=== PATIENT | female | born 1950 | race Caucasian/White ===

== ENCOUNTER 2019-01-02 19:10 | Emergency (ER) | payer OTHER ==
[~2019-01-02] VITALS: Ht 157.5 cm; Wt 91.6 kg
--- NOTE | 2019-01-02 19:16 | ED General ---
General Stated Complaint: PT FELL ON HIP THAT WAS PREV BROKEN, RT SH PAIN History of Present Illness Date Seen by Provider: Jan 02, 2019 Time Seen by Provider: 19:16 Initial Comments fell landed directly on left hip where she had a broken hip in the past. fall from standing height no loc, doesnt think she hit her head. pain moderate localized to groin area. no fever or other recent illneses Allergies and Home Medications Patient Home Medication List Home Medication List Reviewed: Yes Review of Systems Review of Systems Constitutional: no symptoms reported Past Pofyljk-Ryfcqa-Qowqnz Hx Past Med/Social Hx: Reviewed Nursing Past Med/Soc Hx Patient Social History Recent Foreign Travel: No Contact w/Someone Who Travel: No Physical Exam Vital Signs Vital Signs - First Documented 01/02/19 20:58 Temp 98.6 Pulse 71 Resp 16 B/P (MAP) 161/73 (102) Pulse Ox 98 O2 Delivery Room Air Capillary Refill : Height, Weight, BMI Height: '" Weight: lbs. oz. kg; BMI Method: General Appearance: No Apparent Distress, WD/WN Neck: Normal Inspection, Non Tender Respiratory: Chest Non Tender, No Respiratory Distress Gastrointestinal: No Pulsatile Mass, Non Tender Back: Normal Inspection Extremity: Other (there is mild ttp of the left hip rom is intact with only mild discomfort, distal csm intact) Skin: Normal Color, Warm/Dry Progress/Results/Core Measures Suspected Sepsis SIRS Temperature: Pulse: Respiratory Rate: Blood Pressure / Mean: Results/Orders My Orders Orders - LISA CHRISTIE MD Hip 2-3 View Left (01/02/19 21:28) Pelvis (Ap) (01/02/19 21:28) Vital Signs/I&O 01/02/19 01/02/19 20:58 22:17 Temp 98.6 98.6 Pulse 71 71 Resp 16 16 B/P (MAP) 161/73 (102) 161/73 (102) Pulse Ox 98 98 O2 Delivery Room Air Capillary Refill : Progress Note : Progress Note FINDINGS: There are three cannulated bone screws present. Femoral head shows good alignment with the femoral neck. Bone screws appear in good position. There does appear to be mild irregularity along the articulating surface of the femoral head along the distal portion of the more superior cortical bone screw. Acetabulum appears intact. No evidence of femoral neck or trochanteric fracture. IMPRESSION: No findings to suggest acute fractures or hardware complication. Findings are suggestive of a chronic mild irregularity along the articulating surface of the femoral head. Dictated by: Dictated on workstation pelvis xray negative acute 68 yo f with hip contusion xrays negative reassurnace given, ice rest gradual return to activity Departure Impression Primary Impression: Contusion, hip Disposition: HOME, SELF-CARE Condition: Stable Departure-Patient Inst. Referrals: DIANE CROWELL APRN (PCP) Primary Care Physician LISA CHRISTIE MD Jan 02, 2019 19:16
--- NOTE | 2019-01-02 21:26 | NUR ---
DOCTOR AJAY HUFF TO SEE THE PATIENT.
--- NOTE | 2019-01-02 21:58 | Diagnostic Imaging Report ---
INDICATION: Fall. Left hip pain. EXAMINATION: Two views of the left hip were obtained. FINDINGS: There are three cannulated bone screws present. Femoral head shows good alignment with the femoral neck. Bone screws appear in good position. There does appear to be mild irregularity along the articulating surface of the femoral head along the distal portion of the more superior cortical bone screw. Acetabulum appears intact. No evidence of femoral neck or trochanteric fracture. IMPRESSION: No findings to suggest acute fractures or hardware complication. Findings are suggestive of a chronic mild irregularity along the articulating surface of the femoral head. Dictated by: Dictated on workstation # [id number]
--- NOTE | 2019-01-02 21:59 | Diagnostic Imaging Report ---
INDICATION: Fall. Left hip pain. FINDINGS: AP pelvis shows bony ring intact. No evidence of fractures of the pelvis. The SI joints and pubic symphysis are in good alignment with moderate degenerative change. Right hip appears normal. Left hip shows previous pinning as reported on the left hip films. IMPRESSION: No acute abnormalities of the pelvis. Dictated by: Dictated on workstation # [id number]
[2019-01-02 22:17] VITALS: BP 161/73
== END 2019-01-02 22:16 | disposition home or self-care (01) ==
LOC: ER FS 19:11
DX: S70.02XA Contusion of left hip, initial encounter (principal); W18.30XA Fall on same level, unspecified, initial encounter
CPT/HCPCS: 72170; 73502

== ENCOUNTER 2019-01-08 15:53 | Emergency (ER) | payer MEDICARE, OTHER ==
[~2019-01-08] VITALS: Ht 157.5 cm; Wt 91.6 kg
--- NOTE | 2019-01-08 17:00 | ED Hip Pain/Injury ---
General Chief Complaint: Hip/Pelvic Problems Stated Complaint: L HIP PAIN Nursing Triage Note: PT STATES SHE FELL IN THE DRIVEWAY LAST WEEK, CC OF LT HIP PAIN THAT DOES NOT SEEM TO BE GETTING BETTER. PT HAD RAD DONE IN [facility] AND IT WAS NEG FOR FX. Source: patient Exam Limitations: no limitations History of Present Illness Date Seen by Provider: Jan 08, 2019 Time Seen by Provider: 16:35 Initial Comments The patient is a 68-year-old white female who fell in her driveway last week. She was able to walk but had significant left hip pain. She subsequently was seen in [place] and a plain film was done which was reported as negative. She continues to have significant pain and presents for further evaluation. Timing/Duration: week, getting worse Severity: moderate Location: hip (L) Method of Injury: fell Allergies and Home Medications Allergies Coded Allergies: prednisone (Verified Allergy, Intermediate, 01/08/19) PO MAKES HER HAVE NAUSEA, IM IS FINE lisinopril (Verified Adverse Reaction, Mild, 01/08/19) COUGH Patient Home Medication List Home Medication List Reviewed: Yes Review of Systems Constitutional: see HPI EENTM: no symptoms reported Respiratory: no symptoms reported Cardiovascular: no symptoms reported Gastrointestinal: no symptoms reported Genitourinary: no symptoms reported Musculoskeletal: see HPI, joint pain Skin: no symptoms reported Psychiatric/Neurological: No Symptoms Reported Past Abcwheo-Ylujdy-Mnomxk Hx Patient Social History Alcohol Use: Denies Use Recreational Drug Use: No Smoking Status: Never a Smoker Recent Foreign Travel: No Contact w/Someone Who Travel: No Recent Infectious Disease Expo: No Recent Hopitalizations: No Seasonal Allergies Seasonal Allergies: No Past Medical History Surgeries: Yes (CABG, LT HIP FX) Gallbladder Respiratory: Yes Asthma Cardiac: Yes Coronary Artery Disease Neurological: Yes Stroke Genitourinary: No Gastrointestinal: No Musculoskeletal: No Endocrine: Yes Diabetes, Non-Insulin dep HEENT: No Cancer: No Psychosocial: Yes Anxiety Psoriasis Physical Exam Vital Signs Vital Signs - First Documented 01/08/19 16:09 Temp 98.5 Pulse 67 Resp 22 B/P (MAP) 142/71 (94) Pulse Ox 96 O2 Delivery Room Air Capillary Refill : Less Than 3 Seconds Height, Weight, BMI Height: 5'2.00" Weight: 202lbs. oz. 91.219718dk; BMI Method:Stated General Appearance: Mild Distress, Moderate Distress HEENT: Normal ENT Inspection Neck: Normal Inspection Cardiovascular: Regular Rate, Rhythm Progress/Results/Core Measures Results/Orders My Orders Orders - CARITO HURTADO MD Ct Pelvis Wo (01/08/19 16:16) Vital Signs/I&O 01/08/19 16:09 Temp 98.5 Pulse 67 Resp 22 B/P (MAP) 142/71 (94) Pulse Ox 96 O2 Delivery Room Air Blood Pressure Mean: 94 Departure Communication (Admissions) CT scan shows a nondisplaced fracture of the left pubic ramus. This film was shown to the patient and her family. She reports that she feels much better just knowing why she has pain. Impression Primary Impression: fracture left pubic ramus Disposition: HOME, SELF-CARE Condition: Stable/Unchanged Departure-Patient Inst. Decision time for Depature: 18:30 Referrals: DIANE CROEWLL APRN (PCP) Primary Care Physician NO,LOCAL PHYSICIAN (Family) Primary Care Physician Patient Instructions: Pelvic Fracture (DC) Add. Discharge Instructions: All discharge instructions reviewed with patient and/or family. Voiced understanding. Use Tylenol or Motrin as needed for pain. Expect pain although improving for the next 4-6 weeks. CARITO HURTADO MD Jan 08, 2019 17:00
--- NOTE | 2019-01-08 17:42 | Diagnostic Imaging Report ---
PROCEDURE: CT pelvis without contrast. TECHNIQUE: Multiple contiguous axial images were obtained through the pelvis without the use of intravenous contrast. Sagittal and coronal reformations were performed. Auto Exposure Controls were utilized during the CT exam to meet ALARA standards for radiation dose reduction. INDICATION: Fall 1 week ago with left hip pain. FINDINGS: Femoral acetabular alignment is normal bilaterally. There are 2 screws transfixing the left femoral neck. There is an acute appearing fracture involving the left superior pubic ramus just medial to the anterior column of the left acetabulum. This is best seen on the coronal reconstructions. There is also a nondisplaced fracture involving the left inferior pubic ramus, nondisplaced. Right-sided rami are intact. Both hips appear to be intact. SI joints and symphysis are not widened. No free fluid in the pelvis is seen. IMPRESSION: Nondisplaced acute left superior and inferior pubic rami fractures. Dictated by: Dictated on workstation # [id number]
[2019-01-08 18:43] VITALS: BP 154/71
== END 2019-01-08 18:43 | disposition home or self-care (01) ==
LOC: EDUNIT# 15:53 → ER 15:55
DX: S32.512A Fracture of superior rim of left pubis, initial encounter for closed fracture (principal); J45.909 Unspecified asthma, uncomplicated; I25.10 Atherosclerotic heart disease of native coronary artery without angina pectoris; E11.9 Type 2 diabetes mellitus without complications; F41.9 Anxiety disorder, unspecified; Z86.73 Personal history of transient ischemic attack (TIA), and cerebral infarction without residual deficits; Z95.1 Presence of aortocoronary bypass graft; Z88.8 Allergy status to other drugs, medicaments and biological substances; W19.XXXA Unspecified fall, initial encounter; Y92.093 Driveway of other non-institutional residence as the place of occurrence of the external cause
CPT/HCPCS: 72192

== ENCOUNTER 2019-07-19 18:35 | Emergency (ER) | payer MEDICARE, OTHER ==
[~2019-07-19] VITALS: Ht 170 cm; Wt 85.0 kg
--- NOTE | 2019-07-19 18:41 | ED Neurological Problem ---
General Stated Complaint: SEIZURES Source: family, EMS History of Present Illness Date Seen by Provider: Jul 19, 2019 Time Seen by Provider: 18:41 Initial Comments 69-year-old female brought in by EMS. They were called for a seizure. Patient had a witnessed seizure by family for approximately 2 minutes. Patient was postictal when EMS arrived. She does not have any tongue biting. She possibly has some incontinence patient does not remember the event. No other history of present illness available at this time. Patient's family reports that her last seizure was around 2015. That they later determined it was stress related. Patient is currently under a significant amount of stress at this time she is getting ready to move out on her own and signing papers for a house and some other significant stressors. Patient did have a recent upper respiratory infections going on antibiotics. Allergies and Home Medications Allergies Coded Allergies: prednisone (Verified Allergy, Intermediate, 01/08/19) PO MAKES HER HAVE NAUSEA, IM IS FINE lisinopril (Verified Adverse Reaction, Mild, 01/08/19) COUGH Patient Home Medication List Home Medication List Reviewed: Yes Review of Systems Review of Systems Constitutional: no symptoms reported Eyes: No Symptoms Reported Cardiovascular: no symptoms reported Gastrointestinal: no symptoms reported Genitourinary: no symptoms reported Skin: no symptoms reported Psychiatric/Neurological: Tonic Clonic Seizures Review of systems Limited on patient's still be mildly postictal Past Uhmozfc-Kegimd-Hswhcf Hx Past Med/Social Hx: Reviewed Nursing Past Med/Soc Hx Patient Social History Recent Foreign Travel: No Recent Hopitalizations: No Seasonal Allergies Seasonal Allergies: No Past Medical History Surgeries: Yes (CABG, LT HIP FX) Gallbladder Respiratory: Yes Asthma Cardiac: Yes Coronary Artery Disease Neurological: Yes Stroke Genitourinary: No Gastrointestinal: No Musculoskeletal: No Endocrine: Yes Diabetes, Non-Insulin dep HEENT: No Cancer: No Psychosocial: Yes Anxiety Psoriasis Physical Exam Vital Signs Vital Signs - First Documented 07/19/19 18:35 Temp 36.0 Pulse 85 Resp 20 B/P (MAP) 172/71 (104) Pulse Ox 97 O2 Delivery Nasal Cannula O2 Flow Rate 2.00 Capillary Refill : Height, Weight, BMI Height: 5'2.00" Weight: 202lbs. oz. 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, no motor/sensory deficits Skin: normal color, warm/dry Progress/Results/Core Measures Results/Orders Lab Results Laboratory Tests Test 07/19/19 18:42 07/19/19 19:15 07/19/19 20:05 Range/Units White Blood Count 12.7 H 4.3-11.0 10^3/uL Red Blood Count 4.10 L 4.35-5.85 10^6/uL Hemoglobin 12.3 11.5-16.0 G/DL Hematocrit 39 35-52 % Mean Corpuscular Volume 96 80-99 FL Mean Corpuscular Hemoglobin 30 25-34 PG Mean Corpuscular Hemoglobin Concent 31 L 32-36 G/DL Red Cell Distribution Width 14.6 H 10.0-14.5 % Platelet Count 181 130-400 10^3/uL Mean Platelet Volume 11.1 H 7.4-10.4 FL Neutrophils (%) (Auto) 32 L 42-75 % Lymphocytes (%) (Auto) 59 H 12-44 % Monocytes (%) (Auto) 5 0-12 % Eosinophils (%) (Auto) 3 0-10 % Basophils (%) (Auto) 1 0-10 % Neutrophils # (Auto) 4.0 1.8-7.8 X 10^3 Lymphocytes # (Auto) 7.5 H 1.0-4.0 X 10^3 Monocytes # (Auto) 0.7 0.0-1.0 X 10^3 Eosinophils # (Auto) 0.3 0.0-0.3 10^3/uL Basophils # (Auto) 0.1 0.0-0.1 10^3/uL Neutrophils % (Manual) 37 % Lymphocytes % (Manual) 45 % Monocytes % (Manual) 5 % Eosinophils % (Manual) 3 % Band Neutrophils 2 % Atypical Lymphocytes 8 % Poikilocytosis SLIGHT Elliptocytes SLIGHT Sodium Level 139 135-145 MMOL/L Potassium Level 4.6 3.6-5.0 MMOL/L Chloride Level 101 98-107 MMOL/L Carbon Dioxide Level 19 L 21-32 MMOL/L Anion Gap 19 H 5-14 MMOL/L Blood Urea Nitrogen 21 H 7-18 MG/DL Creatinine 1.31 H 0.60-1.30 MG/DL Estimat Glomerular Filtration Rate 40 BUN/Creatinine Ratio 16 Glucose Level 100 70-105 MG/DL Calcium Level 9.7 8.5-10.1 MG/DL Corrected Calcium 9.5 8.5-10.1 MG/DL Total Bilirubin 0.6 0.1-1.0 MG/DL Aspartate Amino Transf (AST/SGOT) 27 5-34 U/L Alanine Aminotransferase (ALT/SGPT) 14 0-55 U/L Alkaline Phosphatase 62 40-136 U/L Total Protein 7.4 6.4-8.2 GM/DL Albumin 4.3 3.2-4.5 GM/DL Serum Alcohol < 10 <10 MG/DL Glucometer 131 H 70-110 MG/DL Urine Color YELLOW Urine Clarity CLEAR Urine pH 6.0 5-9 Urine Specific Bison 1.010 L 1.016-1.022 Urine Protein NEGATIVE NEGATIVE Urine Glucose (UA) NEGATIVE NEGATIVE Urine Ketones NEGATIVE NEGATIVE Urine Nitrite NEGATIVE NEGATIVE Urine Bilirubin NEGATIVE NEGATIVE Urine Urobilinogen 0.2 NORMAL MG/DL Urine Leukocyte Esterase NEGATIVE NEGATIVE Urine RBC (Auto) NEGATIVE NEGATIVE Urine RBC RARE /HPF Urine WBC 0-2 /HPF Urine Squamous Epithelial Cells 0-2 /HPF Urine Crystals NONE /LPF Urine Bacteria NEGATIVE /HPF Urine Casts NONE /LPF Urine Mucus NEGATIVE /LPF Urine Culture Indicated NO My Orders Orders - SIMON,OMAYRA L DO Ct Head Wo (07/19/19 18:42) Chest 1 View Ap/Pa Only (07/19/19 18:42) Accucheck Stat ONCE (07/19/19 18:42) Ekg Tracing (07/19/19 18:42) Monitor-Rhythm Ecg Trace Only (07/19/19 18:42) Alcohol (07/19/19 18:42) Cbc With Automated Diff (07/19/19 18:42) Comprehensive Metabolic Panel (07/19/19 18:42) Drug Screen Stat (Urine) (07/19/19 18:42) Ua Culture If Indicated (07/19/19 18:42) Promethazine Injection (Phenergan Injec (07/19/19 19:30) Manual Differential (07/19/19 18:42) Fosphenytoin Injection (Cerebyx Injectio (07/19/19 20:30) Medications Given in ED Current Medications Medications Dose Ordered Sig/Ileana Route Start Time Stop Time Status Last Admin Dose Admin Promethazine HCl 12.5 mg ONCE ONCE IVP 07/19/19 19:30 07/19/19 19:31 DC 07/19/19 19:20 12.5 MG Vital Signs/I&O 07/19/19 07/19/19 18:35 19:46 Temp 36.0 Pulse 85 73 Resp 20 16 B/P (MAP) 172/71 (104) 153/57 (89) Pulse Ox 97 98 O2 Delivery Nasal Cannula Room Air O2 Flow Rate 2.00 Progress Progress Note : Time: 20:26 Progress Note Patient with negative head CT, mild white count but is currently on antibiotics. She is family requested immediate transfer to . Patient initially was okay with transfer to but then she changed her mind and wants to be discharged home. Did discuss with them that with patient's history and presentation that she likely does not meet inpatient or observation criteria. I did however call and start the transfer process with . However during this process patient herself decided she would rather just go home. I will give her a loading dose of fosphenytoin center on Keppra 500 mg twice a day. Patient should follow-up with her primary care physician and neurologist for further evaluation. There was a significant amount of stress and family strife and infighting within the family. Patient however is stable upon discharge and her wishes to be DC'd home will be followed Departure Impression Primary Impression: Seizure disorder Disposition: 01 HOME, SELF-CARE Condition: Stable Departure-Patient Inst. Referrals: UNKNOWN (PCP) Primary Care Physician DIANE CROWELL APRN (Family) Primary Care Physician Patient Instructions: Seizures, Adult (DC) Add. Discharge Instructions: Follow up with your primary care early next week to arrange for a neurology workup and further outpatient testing Scripts Ondansetron (Ondansetron Odt) 4 Mg Tab.rapdis 4 MG PO Q6H PRN for NAUSEA/VOMITING, #20 TAB Prov: OMAYRA SIMON DO 07/19/19 Levetiracetam (Roweepra) 500 Mg Tablet 500 MG PO NEEDED, #30 TAB Prov: VANESSA SIMONR Shruti DO 07/19/19 OMAYRA SIMON DO Jul 19, 2019 18:41
[2019-07-19 19:03] LABS: HEMATOCRIT 39 % (35-52); HEMOGLOBIN 12.3 G/DL (11.5-16.0); MEAN CORPUSCULAR HEMOGLOBIN 30 PG (25-34); MEAN CORPUSCULAR HGB CONC 31 G/DL (32-36); MEAN CORPUSCULAR VOLUME 96 FL (80-99); RED CELL DISTRIBUTION WIDTH 14.6 % (10.0-14.5); WHITE BLOOD COUNT 12.7 10^3/uL (4.3-11.0)
[2019-07-19 19:04] LABS: MEAN PLATELET VOLUME 11.1 FL (7.4-10.4); PLATELET COUNT 181 10^3/uL (130-400)
--- NOTE | 2019-07-19 19:14 | NUR ---
Report to Cassie GUTIERREZ.
--- NOTE | 2019-07-19 19:19 | Diagnostic Imaging Report ---
PROCEDURE: CT head without contrast. TECHNIQUE: Multiple contiguous axial images were obtained through the brain without the use of intravenous contrast. Auto Exposure Controls were utilized during the CT exam to meet ALARA standards for radiation dose reduction. INDICATION:Seizure COMPARISON: There are no prior studies available for comparison. There is no mass, shift of the midline or hemorrhage to suggest an acute intracranial abnormality. The bone windows showed no evidence for a fracture or for a destructive lesion. The ventricles are not abnormally dilated. There are vague areas of low density in the periventricular white matter bilaterally. These findings are nonspecific but may be secondary to encephalomalacia from microvascular ischemia. There is cortical atrophy present. The degree of atrophy is consistent with the patient's age. The orbits and sinuses were not visualized in their entirety. Where visualized, there is no acute abnormality. IMPRESSION: 1. There is no evidence for an acute intracranial abnormality. 2. If clinical concern regarding an underlying abnormality persists, then MRI would be recommended for further evaluation. These results were discussed with Dr. Acosta at the time of this dictation. Dictated by: Dictated on workstation # [id number]
[2019-07-19 19:22] LABS: ALANINE AMINOTRANSFERASE 14 U/L (0-55); ALKALINE PHOSPHATASE 62 U/L (40-136); BILIRUBIN,TOTAL 0.6 MG/DL (0.1-1.0); BUN/CREATININE RATIO 16; CALCIUM 9.7 MG/DL (8.5-10.1); CARBON DIOXIDE 19 MMOL/L (21-32); CHLORIDE 101 MMOL/L (98-107); CREATININE SERUM 1.31 MG/DL (0.60-1.30); GFR ESTIMATED 40; GLUCOSE 100 MG/DL (70-105); POTASSIUM 4.6 MMOL/L (3.6-5.0); SODIUM 139 MMOL/L (135-145)
[2019-07-19 19:23] LABS: ALBUMIN 4.3 GM/DL (3.2-4.5); TOTAL PROTEIN 7.4 GM/DL (6.4-8.2)
--- NOTE | 2019-07-19 19:23 | Diagnostic Imaging Report ---
EXAM: CHEST 1 VIEW AP/PA ONLY INDICATION: Cough. Seizure. COMPARISON: None. FINDINGS: Cardiomegaly with mild pulmonary vascular congestion. Sternotomy. Calcified aorta. No focal pulmonary opacity, pleural effusion or pneumothorax. IMPRESSION: Cardiomegaly with mild pulmonary vascular congestion. Dictated by: Dictated on workstation # [id number]
[2019-07-19 19:30] LABS: BASOPHILS % (AUTO) 1 % (0-10); EOSINOPHILS # (AUTO) 0.3 10^3/uL (0.0-0.3); EOSINOPHILS % (AUTO) 3 % (0-10); LYMPHOCYTES # (AUTO) 7.5 X 10^3 (1.0-4.0); LYMPHOCYTES % (AUTO) 59 % (12-44); MONOCYTES # (AUTO) 0.7 X 10^3 (0.0-1.0); MONOCYTES % (AUTO) 5 % (0-12); NEUTROPHILS % (AUTO) 32 % (42-75)
[2019-07-19] MEDS ORDERED: PROMETHAZINE INJ 25 MG/ML (PHENERGAN) AMP IVP ONE (19:30)
[2019-07-19 19:31] LABS: ATYPICAL LYMPHOCYTES 8 %; BAND NEUTROPHILS 2 %; BASOPHILS # (AUTO) 0.1 10^3/uL (0.0-0.1); EOSINOPHILS % (MANUAL) 3 %; LYMPHOCYTES % (MANUAL) 45 %; MONOCYTES % (MANUAL) 5 %; NEUTROPHILS % (MANUAL) 37 %
[2019-07-19 19:32] LABS: ELLIPT/OVALOCYTES SLIGHT; POIKILOCYTOSIS SLIGHT
[2019-07-19 19:46] VITALS: BP 153/57
[2019-07-19 20:22] LABS: BACTERIA,URINE NEGATIVE /HPF; BILIRUBIN,URINE NEGATIVE (NEGATIVE); CLARITY,URINE CLEAR; COLOR,URINE YELLOW; GLUCOSE, URINE (UA) NEGATIVE (NEGATIVE); KETONES,URINE NEGATIVE (NEGATIVE); LEUKOCYTE ESTERASE ,URINE NEGATIVE (NEGATIVE); NITRITE,URINE NEGATIVE (NEGATIVE); PROTEIN,URINE NEGATIVE (NEGATIVE); RBC,URINE RARE /HPF; SQUAMOUS EPITHELIAL CELL,UR 0-2 /HPF; UROBILINOGEN,URINE 0.2 MG/DL (NORMAL); WBC,URINE 0-2 /HPF
[2019-07-19 20:26] LABS: AMPHETAMINE SCREEN, URINE NEGATIVE (NEGATIVE); BARBITURATE SCREEN URINE NEGATIVE (NEGATIVE); BENZODIAZEPINES SCREEN URINE POSITIVE (NEGATIVE); CANNABINOID SCREEN, URINE NEGATIVE (NEGATIVE); COCAINE SCREEN URINE NEGATIVE (NEGATIVE); METHADONE STAT NEGATIVE (NEGATIVE); METHAMPHETAMINE SCREEN URINE S NEGATIVE (NEGATIVE); OPIATE SCREEN URINE NEGATIVE (NEGATIVE); OXYCODONE STAT NEGATIVE (NEGATIVE); PROPOXYPHENE STAT NEGATIVE (NEGATIVE); TRICYCLIC ANTIDEPRESSANTS SCRE NEGATIVE (NEGATIVE)
[2019-07-19] MEDS ORDERED: RX-ONDANSETRON 4 MG ODT (ZOFRAN) PPK #4 PO STA (20:26)
[2019-07-19] MEDS ORDERED: FOSPHENYTOIN 50 MG/ML 2 ML (cereBYX) VIAL IV ONE (20:30)
[2019-07-19] MEDS ORDERED: ONDA4TAB11 PO (20:31)
[2019-07-19] MEDS ORDERED: [UNRECOGNIZED DRUG - CODE] PO (20:31)
[2019-07-19 20:34] VITALS: BP 135/66
== END 2019-07-19 20:49 | disposition home or self-care (01) ==
LOC: EDUNIT# 18:35 → ER FS 18:40
DX: G40.909 Epilepsy, unspecified, not intractable, without status epilepticus (principal); J45.909 Unspecified asthma, uncomplicated; E11.9 Type 2 diabetes mellitus without complications; I25.10 Atherosclerotic heart disease of native coronary artery without angina pectoris; F41.9 Anxiety disorder, unspecified; Z86.73 Personal history of transient ischemic attack (TIA), and cerebral infarction without residual deficits; Z88.8 Allergy status to other drugs, medicaments and biological substances; Z95.1 Presence of aortocoronary bypass graft
CPT/HCPCS: 36415; 70450; 71045; 80053; 80306; 80320; 81000; 82962; 85007; 85027; 93005; 93041; 96374; 96375

== ENCOUNTER 2019-10-04 14:25 | Emergency (ER) | payer MEDICARE, OTHER ==
[~2019-10-04] VITALS: Ht 160 cm; Wt 87.0 kg
[~2019-10-04 14:25] MED LIST: ONDA4TAB11 PO; [UNRECOGNIZED DRUG - CODE] PO
[2019-10-04] MEDS ORDERED: CEPH500T PO (15:26)
--- NOTE | 2019-10-04 15:27 | ED Integumentary General ---
General Chief Complaint: Skin/Wound Problems Stated Complaint: LT KNEE PAIN Nursing Triage Note: PT HAD KNEE SURGERY ON AUGUST 28, 2019 AND [facility] SENT HER UP FOR A CHECK OF HER INCISION BECASUE THERE IS AN AREA THAT HAS A SUTURE EMBEDDED AND THEY WANTED HER TO GET IT CHECKED OUT OFR POSSIBLE INFECTION. SMALL SCAB NOTED WITH SOME PINKNESS AROUND THE AREA. Source: patient Exam Limitations: no limitations History of Present Illness Date Seen by Provider: Oct 04, 2019 Time Seen by Provider: 14:57 Initial Comments Here with report of concern about possible wound infection to the suture line on her left knee. She has knee replacement on August 28. Sutures were removed. The inferior most and one other suture approximately 3 cm down from the proximal start of the suture line there is question of suture and some erythema. No fever. Does report pain in the area. Noticed this started physical therapy today. Timing/Duration: this morning Severity: mild Location: extremities Associated Symptoms: change in skin texture, other (redness) Allergies and Home Medications Allergies Coded Allergies: prednisone (Verified Allergy, Intermediate, 01/08/19) PO MAKES HER HAVE NAUSEA, IM IS FINE lisinopril (Verified Adverse Reaction, Mild, 01/08/19) COUGH Home Medications Levetiracetam 500 Mg Tablet, 500 MG PO NEEDED Prescribed by: OMAYRA SIMON on 07/19/192030 Ondansetron 4 Mg Tab.rapdis, 4 MG PO Q6H PRN for NAUSEA/VOMITING Prescribed by: OMAYRA SIMON on 07/19/192030 Patient Home Medication List Home Medication List Reviewed: Yes Review of Systems Review of Systems Constitutional: see HPI; No chills, No fever Respiratory: no symptoms reported Cardiovascular: no symptoms reported Skin: see HPI, change in color; No pruritus Past Jodsxix-Oudzzx-Qjnevb Hx Past Med/Social Hx: Reviewed Nursing Past Med/Soc Hx Patient Social History Alcohol Use: Denies Use Recreational Drug Use: No Smoking Status: Former Smoker Type Used: Cigarettes Recent Foreign Travel: No Contact w/Someone Who Travel: No Recent Infectious Disease Expo: No Recent Hopitalizations: No Physical Abuse: No Sexual Abuse: No Mistreated: No Fear: No Seasonal Allergies Seasonal Allergies: No Past Medical History Surgeries: Yes (CABG, LT HIP FX) Gallbladder Respiratory: Yes Asthma Cardiac: Yes Coronary Artery Disease Neurological: Yes Seizure Disorder, Stroke Genitourinary: No Gastrointestinal: No Musculoskeletal: No Endocrine: Yes Diabetes, Non-Insulin dep HEENT: No Cancer: No Psychosocial: Yes Anxiety Integumentary: No Psoriasis Family Medical History Reviewed Nursing Family Hx Physical Exam Vital Signs Vital Signs - First Documented 10/04/19 14:47 Temp 36.2 Pulse 76 Resp 22 B/P (MAP) 135/41 (72) O2 Delivery Room Air Capillary Refill : Less Than 3 Seconds General Appearance: WD/WN, no apparent distress Cardiovascular: regular rate, rhythm, systolic murmur Respiratory: lungs clear, normal breath sounds Skin: warm/dry Skin Problem Location: lower extremities Skin Problem Character: erythema, other (suture line to the left knee has 2 areas with small area of redness. Area one is proximal portion of the suture line approximately 3 cm distally from the beginning or there is a question of a small suture running through the scan and some surrounding erythema. The other area is the most distal portion of the incision line where there is similar appearance. No area of fluctuance. No significant red streaks.) Progress/Results/Core Measures Results/Orders Vital Signs/I&O 10/04/19 14:47 Temp 36.2 Pulse 76 Resp 22 B/P (MAP) 135/41 (72) O2 Delivery Room Air Blood Pressure Mean: 72 Progress Progress Note : Progress Note Seen and evaluated. Antibiotic ointment and Band-Aid placed over wound. Rx given. Discharged home with return precautions. Patient verbalize understanding instructions and agreement with plan. Departure Impression Primary Impression: Wound infection after surgery Disposition: 01 HOME, SELF-CARE Condition: Improved Departure-Patient Inst. Decision time for Depature: 15:25 Referrals: TUSHAR NEWSOME MD (PCP) Primary Care Physician DIANE CROWELL APRN (Family) Primary Care Physician Patient Instructions: Surgical Wound (DC) Add. Discharge Instructions: All discharge instructions reviewed with patient and/or family. Voiced understanding. Use antibiotic ointment and Band-Aid over areas of concern and change twice daily for the next several days. Take medications as directed. Follow-up with your DrRama in a few days for recheck. Call your surgeon on Monday for further directions. Return for worse pain, markedly increasing redness, fever or other concerns as needed. Scripts Cephalexin (Cephalexin) 500 Mg Tablet 500 MG PO QID, #28 TAB 0 Refills Prov: JOSEFINA,ELINOR D MD 10/04/19 ELINOR ROCHA MD Oct 04, 2019 15:27
[2019-10-04 15:34] VITALS: BP 109/59
== END 2019-10-04 15:30 | disposition home or self-care (01) ==
LOC: EDUNIT# 14:25 → ER FS 14:27
DX: T81.40XA Infection following a procedure, unspecified, initial encounter (principal); J45.909 Unspecified asthma, uncomplicated; I25.10 Atherosclerotic heart disease of native coronary artery without angina pectoris; G40.909 Epilepsy, unspecified, not intractable, without status epilepticus; E11.9 Type 2 diabetes mellitus without complications; F41.9 Anxiety disorder, unspecified; Z86.73 Personal history of transient ischemic attack (TIA), and cerebral infarction without residual deficits; Z96.652 Presence of left artificial knee joint; Z88.8 Allergy status to other drugs, medicaments and biological substances; Z87.891 Personal history of nicotine dependence; Z95.1 Presence of aortocoronary bypass graft
CPT/HCPCS: 99283

== ENCOUNTER → 2019-10-08 | Outpatient (CLI) | payer MEDICARE, OTHER ==
[~2019-10-08] MED LIST changes: +CEPH500T PO
--- NOTE | 2019-10-08 15:28 | Diagnostic Imaging Report ---
INDICATION: Total knee replacement, now complaining of redness and swelling. TIME OF EXAM: 02:43 p.m. FINDINGS: Three views of the left knee were obtained. There are postop changes of total knee arthroplasty. Prosthetic elements appear to be in good position. No fracture or loosening is identified. Bony structures appear to be intact. No significant joint effusion is seen. IMPRESSION: Postop left knee. No acute feature is detected. Dictated by: Dictated on workstation # [id number]
== END ==
LOC: RAD FS 14:33
PROVIDERS: ATTEND Nurse Practitioner Family
DX: L03.116 Cellulitis of left lower limb (principal); M25.462 Effusion, left knee; Z96.652 Presence of left artificial knee joint
CPT/HCPCS: 73562

== ENCOUNTER → 2020-07-07 | Outpatient (CLI) | payer MEDICARE, OTHER ==
--- NOTE | 2020-07-07 15:58 | Diagnostic Imaging Report ---
EXAMINATION: Right ribs at 3:04 PM. INDICATION: Fell, rib pain. TECHNIQUE/COMPARISON: Three views were obtained. There are no prior right rib exams available for comparison. A chest exam of 07/19/2019 failed to show any sign of an acute bony abnormality. FINDINGS: On this study, there is no displaced rib fracture visualized; however, there is slight irregularity of the cortex of the lateral aspect of the right 5th rib. This finding does suggest a nondisplaced fracture. The age of this injury, however, is indeterminate. There is no sign of an injury to the underlying right lung. IMPRESSION: 1. The slight irregularity of the cortex of the lateral aspect of the right 5th rib may be secondary to a nondisplaced fracture. The age of this injury, however, is indeterminate. Clinical followup is recommended. 2. There is no acute bony abnormality appreciated otherwise. Dictated by: Dictated on workstation # [id number]
== END ==
LOC: RAD FS 14:53
PROVIDERS: ATTEND Nurse Practitioner Family
DX: R07.81 Pleurodynia (principal); W19.XXXA Unspecified fall, initial encounter
CPT/HCPCS: 71100

== ENCOUNTER → 2020-07-24 | Outpatient (CLI) | payer MEDICARE, OTHER ==
--- NOTE | 2020-07-24 15:32 | Diagnostic Imaging Report ---
INDICATION: Chronic low back pain. TIME OF EXAM: 3:19 p.m. EXAMINATION: Frontal and lateral views of the lumbar spine were obtained. FINDINGS: Curvature and alignment of the lumbar spine is normal. Vertebral body heights are well maintained. No acute compression fracture is seen. Disc spaces are within normal limits. Abdominal aorta is heavily calcified. IMPRESSION: No acute bony abnormality is detected. Dictated by: Dictated on workstation # [id number]
== END ==
LOC: RAD FS 15:09
PROVIDERS: ATTEND Nurse Practitioner Family
DX: M54.5 Low back pain (principal)
CPT/HCPCS: 72100

== ENCOUNTER → 2020-08-31 | Outpatient (CLI) | payer MEDICARE, OTHER ==
[2020-08-31 11:26] LABS: CREATININE SERUM 1.15 MG/DL (0.60-1.30)
--- NOTE | 2020-08-31 12:26 | Diagnostic Imaging Report ---
PROCEDURE: CT chest without contrast. TECHNIQUE: Multiple contiguous axial images were obtained through the chest without the use of intravenous contrast. Auto Exposure Controls were utilized during the CT exam to meet ALARA standards for radiation dose reduction. INDICATION: Shortness of breath, cough, positive Covid. No relevant comparison. FINDINGS: There are few patchy bilateral predominantly lower lobe and dependent groundglass opacities nonspecific but compatible with viral etiology. A sub-solid nodule in the right lower lobe measuring 7.7 mm indeterminate and warrants a follow-up chest CT in 3 months' time. No thoracic effusion. No soft tissue density lung mass. No evidence for hilar or mediastinal lymphadenopathy. There is previous sternotomy without acute appearing chest wall pathology. The atherosclerotic aorta is nonaneurysmal. There is coronary arterial vascular calcifications. IMPRESSION: 1. Mild bilateral predominantly basilar groundglass opacities nonspecific but compatible with the provided history of a Covid patient. No chest effusion. Nonaneurysmal atherosclerotic aorta. 2. Sub-solid subcentimeter right lower lobe nodular opacity indeterminate warrants follow-up exam. Repeat chest CT in 3 months' time suggested. Dictated by: Dictated on workstation # [id number]
== END ==
LOC: CARD 11:00
PROVIDERS: ATTEND Internal Medicine Cardiovascular Disease
DX: U07.1 COVID-19 (principal); I10 Essential (primary) hypertension; I25.5 Ischemic cardiomyopathy; E78.2 Mixed hyperlipidemia; E78.41 Elevated Lipoprotein(a); I25.10 Atherosclerotic heart disease of native coronary artery without angina pectoris; Z95.1 Presence of aortocoronary bypass graft; R91.8 Other nonspecific abnormal finding of lung field
CPT/HCPCS: 36415; 71250; 82565; 83615; 83880; 84484; 84520; 85379; 85652; 86141; 86769; 93306

== ENCOUNTER 2020-09-22 19:36 | Emergency (ER) | payer MEDICARE, OTHER ==
[~2020-09-22] VITALS: Ht 160 cm; Wt 97.0 kg
--- NOTE | 2020-09-22 20:04 | ED EENT ---
History of Present Illness General Chief Complaint: Ear Problems Stated Complaint: EAR PAIN,HEADACHE Nursing Triage Note: Pt reports earpain and headache for 3 days. Source: patient Exam Limitations: no limitations History of Present Illness Date Seen by Provider: Sep 22, 2020 Time Seen by Provider: 19:55 Initial Comments 70-year-old female with past medical history significant for CVA presents with three-day history of throbbing discomfort of both ears, worse when lying down and better throughout the day. Denies previous history of similar discomfor t/headaches. Denies any numbness, weakness or paresthesias, denies neck pain, incoordination, speech difficulty , change of vision or swallowing difficulty. Allergies and Home Medications Allergies Coded Allergies: prednisone (Verified Allergy, Intermediate, 01/08/19) PO MAKES HER HAVE NAUSEA, IM IS FINE lisinopril (Verified Adverse Reaction, Mild, 01/08/19) COUGH Home Medications Cephalexin 500 Mg Tablet, 500 MG PO QID Prescribed by: ELINOR ROCHA on 10/04/19 1526 Levetiracetam 500 Mg Tablet, 500 MG PO NEEDED Prescribed by: OMAYRA SIMON on 07/19/192030 Ondansetron 4 Mg Tab.rapdis, 4 MG PO Q6H PRN for NAUSEA/VOMITING Prescribed by: OMAYRA SIMON on 07/19/192030 Patient Home Medication List Home Medication List Reviewed: Yes Review of Systems Review of Systems Constitutional: No chills, No dizziness, No fever, No malaise, No weakness Eyes: Denies Blindness, Denies Blurred Vision, Denies Pain, Denies Photophobia Ears: See HPI, Dizziness, Pain; Denies Tinnitus, Denies Bloody Discharge, Denies Purulent Discharge, Denies Serosanguinous Discharge, Denies Previous Injury; Other (throbbing sensation) Nose: denies clots, denies congestion, denies pain, denies bloody discharge, denies purulent discharge, denies serosanguinous discharge Throat: denies pain, denies swelling Respiratory: No cough, No short of breath Cardiovascular: No chest pain, No palpitations, No syncope Neurological: See HPI, Headache; Denies Numbness, Denies Paresthesia, Denies Pre-Existing Deficit, Denies Seizure, Denies Tingling, Denies Tremors, Denies Weakness Past Hoagprz-Gavwms-Cnwgcn Hx Past Med/Social Hx: Reviewed Nursing Past Med/Soc Hx Patient Social History Type Used: Cigarettes Recent Foreign Travel: No Contact w/Someone Who Travel: No Recent Infectious Disease Expo: No Recent Hopitalizations: No Physical Abuse: No Sexual Abuse: No Seasonal Allergies Seasonal Allergies: No Past Medical History Surgeries: Yes (CABG, LT HIP FX) Gallbladder Respiratory: Yes Asthma Cardiac: Yes Coronary Artery Disease Neurological: Yes Seizure Disorder, Stroke : No Genitourinary: No Gastrointestinal: No Musculoskeletal: No Endocrine: Yes Diabetes, Non-Insulin dep HEENT: No Cancer: No Psychosocial: Yes Anxiety Integumentary: No Psoriasis Blood Disorders: No Physical Exam Vital Signs Vital Signs - First Documented 09/22/20 19:51 Temp 36.7 Pulse 81 Resp 17 B/P (MAP) 185/100 (128) Pulse Ox 97 O2 Delivery Room Air Height, Weight, BMI Height: 5'2.00" Weight: 202lbs. oz. 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 No acute intracranial abnormality. No CT evidence of mass, acute infarct or intracranial hemorrhage. 2. Chronic small vessel ischemic changes in the deep white matter. Dictated by: Dictated on workstation # [id number] Dict: 09/22/202027 Trans: 09/22/202028 [facility] [id number] Interpreted by: NAN MCKAY MD Electronically signed by: ANN MCKAY MD 09/22/202028 Departure Impression Primary Impression: Headache Qualified Codes: R51 - Headache Disposition: 01 HOME, SELF-CARE Condition: Stable Departure-Patient Inst. Decision time for Depature: 20:26 Referrals: [facility] (PCP) Primary Care Physician DIANE CROWELL APRN (Family) Primary Care Physician Patient Instructions: Headache, Adult (DC), Tinnitus (Ringing in the Ears) Add. Discharge Instructions: Follow up with your PCP or Neurologist regarding your ear pain/ headache in 2-3 days, Follow up to the nearest ER sooner if worse. All discharge instructions reviewed with patient and/or family. Voiced understanding. LEON REYNA DO Sep 22, 2020 20:04
--- NOTE | 2020-09-22 20:15 | NUR ---
Spoke with Sarah Whipple [phone] patients granddaughter and gave update.
--- NOTE | 2020-09-22 20:31 | Diagnostic Imaging Report ---
INDICATION: Headache TECHNIQUE: Routine non contrast-enhanced axial images were obtained from the skull base to the vertex. Auto Exposure Controls were utilized during the CT exam to meet ALARA standards for radiation dose reduction COMPARISON: 07/19/2019 FINDINGS: The ventricles and cortical sulci are diffusely prominent, compatible with age-related volume loss. There are confluent areas of abnormal, low attenuation in the periventricular white matter. This is consistent with chronic small vessel ischemic changes.. There is no midline shift or mass-effect. No acute intra-axial hemorrhage is seen. There are no abnormal areas of increased or decreased density to suggest acute hemorrhage or edema. No extra-axial masses or collections are present. The bony calvarium is intact. The visualized paranasal sinuses are unremarkable. The mastoid air cells are clear. IMPRESSION: 1. No acute intracranial abnormality. No CT evidence of mass, acute infarct or intracranial hemorrhage. 2. Chronic small vessel ischemic changes in the deep white matter. Dictated by: Dictated on workstation # [id number]
[2020-09-22 20:36] VITALS: BP 146/83
== END 2020-09-22 20:49 | disposition home or self-care (01) ==
LOC: EDUNIT# 19:36 → ER FS 19:38
DX: R51.9 Headache, unspecified (principal); G40.909 Epilepsy, unspecified, not intractable, without status epilepticus; Z95.1 Presence of aortocoronary bypass graft; Z88.8 Allergy status to other drugs, medicaments and biological substances
CPT/HCPCS: 70450

== ENCOUNTER → 2021-02-04 | Outpatient (CLI) | payer MEDICARE, OTHER ==
--- NOTE | 2021-02-04 17:11 | Diagnostic Imaging Report ---
INDICATION: Elevated d-dimer and cough. EXAMINATION: Patient was administered 5.4 mCi multimedia technician 99m MAA intravenously and imaging of the chest was performed in multiple obliquities. FINDINGS: There is homogeneous perfusion to both lungs. No pleural-based perfusion defect is identified. IMPRESSION: Normal perfusion lung scan. Dictated by: Dictated on workstation # [id number]
== END ==
LOC: CARD 11:07
PROVIDERS: ATTEND Internal Medicine Cardiovascular Disease
DX: R79.89 Other specified abnormal findings of blood chemistry (principal); R05 Cough; R06.02 Shortness of breath; M79.89 Other specified soft tissue disorders; R60.9 Edema, unspecified
CPT/HCPCS: 78580; A9540

== ENCOUNTER → 2021-02-04 | Outpatient (CLI) | payer MEDICARE, OTHER ==
[~2021-02-04] MED LIST changes: +CATHETER FLUSH 10 ML SYR IV PRN
--- NOTE | 2021-02-04 12:30 | Diagnostic Imaging Report ---
PROCEDURE: US Venous Lower Ext Jose. INDICATION: ELEVATED D-DIMER,COUGH,LEG SWELLING TECHNIQUE: Multiple real-time grayscale images were obtained over the lower extremities in various projections, bilaterally. Additional duplex Doppler and color Doppler images were also obtained. CORRELATION STUDY: None FINDINGS: Color and grayscale sonographic images demonstrate no intraluminal defect within the visualized portion of the common femoral, superficial femoral and/or popliteal veins to suggest thrombus formation. These vessels demonstrate normal response to compression and augmentation. No soft tissue fluid collection. IMPRESSION: 1. Negative for deep venous thrombosis of either leg. Dictated by: Dictated on workstation # [id number]
== END ==
LOC: RAD 11:07
PROVIDERS: ATTEND Internal Medicine Cardiovascular Disease
DX: M79.89 Other specified soft tissue disorders (principal); R05 Cough; R79.89 Other specified abnormal findings of blood chemistry
CPT/HCPCS: 93970

== ENCOUNTER → 2021-04-02 | Outpatient (CLI) | payer MEDICARE, OTHER ==
[~2021-04-02] MED LIST changes: +BARIUM SUSPENSION 2.1% (VANILLA SILQ) 450 ML PO ONE; +HOLD METFORMIN - RECEIVED CONTRAST 20 ML VIAL IV SCH; +IOHEXOL 350 MG/ML 100 ML (OMNIPAQUE 350) VIAL IV ONE; +NS 100 ML (IVPB) BAG IV ONE
--- NOTE | 2021-04-02 16:56 | Diagnostic Imaging Report ---
PROCEDURE: CT chest with contrast, CT abdomen and pelvis with and without contrast. TECHNIQUE: Pre and post intravenous contrast axial imaging of the abdomen and pelvis and post contrast axial imaging of the chest were performed. Auto Exposure Controls were utilized during the CT exam to meet ALARA standards for radiation dose reduction. INDICATION: Elevated white blood count The previous CT chest exam of 08/31/2020 noted patchy groundglass densities in both lung bases. Those abnormal parenchymal densities have resolved The prior study also identified a 7.7 mm indeterminant nodule in the right lower lobe. That finding is again identified and no different (image 53 of 238). There is no other parenchymal lung mass identified and the lungs are otherwise generally clear. The heart size is stable when compared to the prior exam. Extensive coronary artery calcifications are again noted. The sternotomy wires and surgical clips seen previously are also again visualized. The aorta and pulmonary arteries were not well-opacified. There is no sign of an aneurysm or dissection and there is no definite effect to indicate a pulmonary embolus. There is no mediastinal or hilar adenopathy. The images through the abdomen and pelvis show that the liver is mildly enlarged but similar in size to the prior CT chest exam. The spleen is prominent measuring 12.8 cm in length. The pancreas, adrenals, kidneys, aorta and inferior vena cava are unremarkable for an acute abnormality. There is no sign of portal vein thrombosis. The stomach is filled with oral contrast and difficult to assess. In the interval since the prior CT pelvis exam of 01/08/2019, the orthopedic fixation screws securing the fracture of the left femoral neck have been removed. There is now a total hip prosthesis in place. The prosthesis seems in good position although the artifact related to the orthopedic hardware does limit the evaluation of the pelvis. The urinary bladder and uterus show no definite abnormality. The appendix was visualized and is not abnormally thickened. The bone windows show no sign of a fracture or of a destructive lesion. IMPRESSION: 1.. The groundglass densities involving both lungs seen previously have resolved. The small nodular density in the right lower lobe seen previously is essentially no different. Another six-month follow-up CT chest exam would be recommended for continued evaluation of this finding. 2. There is no acute abnormality of the chest, abdomen and pelvis identified. 3. The aorta and the pulmonary arteries were not well evaluated due to their poor opacification. 3. There is now a total hip prosthesis in place on the left. Dictated by: Dictated on workstation # [id number]
== END ==
LOC: RAD 12:55
PROVIDERS: ATTEND Internal Medicine Hematology & Oncology
DX: D72.829 Elevated white blood cell count, unspecified (principal); R91.8 Other nonspecific abnormal finding of lung field; Z96.642 Presence of left artificial hip joint
CPT/HCPCS: 71260; 74178

== ENCOUNTER 2021-04-21 14:05 | Outpatient (RCR) | payer MEDICARE, OTHER ==
[2021-03-29 14:14] LABS: BASOPHILS # (AUTO) 0.1 10^3/uL (0.0-0.1); BASOPHILS % (AUTO) 0 % (0-10); EOSINOPHILS # (AUTO) 0.3 10^3/uL (0.0-0.3); EOSINOPHILS % (AUTO) 1 % (0-10); HEMATOCRIT 34 % (35-52); HEMOGLOBIN 10.1 g/dL (11.5-16.0); LYMPHOCYTES # (AUTO) 24.8 10^3/uL (1.0-4.0); LYMPHOCYTES % (AUTO) 84 % (12-44); MEAN CORPUSCULAR HEMOGLOBIN 30 pg (25-34); MEAN CORPUSCULAR HGB CONC 30 g/dL (32-36); MEAN CORPUSCULAR VOLUME 102 fL (80-99); MEAN PLATELET VOLUME 9.2 fL (9.0-12.2); MONOCYTES # (AUTO) 0.4 10^3/uL (0.0-1.0); MONOCYTES % (AUTO) 2 % (0-12); NEUTROPHILS % (AUTO) 13 % (42-75); PLATELET COUNT 367 10^3/uL (130-400); WHITE BLOOD COUNT 29.7 10^3/uL (4.3-11.0)
[2021-04-02 12:52] LABS: RETICULOCYTE % 4.69 % (0.50-2.40)
[2021-04-19 12:25] LABS: BILIRUBIN,TOTAL 0.6 MG/DL (0.1-1.0); CALCIUM 9.8 MG/DL (8.5-10.1); CREATININE SERUM 1.23 MG/DL (0.60-1.30); POTASSIUM 4.7 MMOL/L (3.6-5.0); TOTAL PROTEIN 7.1 GM/DL (6.4-8.2)
[~2021-04-21 14:05] MED LIST changes: -BARIUM SUSPENSION 2.1% (VANILLA SILQ) 450 ML PO ONE; -CATHETER FLUSH 10 ML SYR IV PRN; +FERRIC CARBOXYMALTOSE (CANCER) 750 MG in NS (IVPB) CANCER CENTER 250 ML IV SCH; -HOLD METFORMIN - RECEIVED CONTRAST 20 ML VIAL IV SCH; -IOHEXOL 350 MG/ML 100 ML (OMNIPAQUE 350) VIAL IV ONE; -NS 100 ML (IVPB) BAG IV ONE
== END 2021-04-23 11:41 | disposition home or self-care (01) ==
LOC: ONC 14:05
PROVIDERS: ATTEND Internal Medicine Hematology & Oncology
DX: D64.89 Other specified anemias (principal); D75.89 Other specified diseases of blood and blood-forming organs; R91.1 Solitary pulmonary nodule
CPT/HCPCS: 83615; 85025; G0463; 80053; 82607; 82728; 82746; 83540; 83550; 85045; 86880; 88230; 88262; 88377; 96365; 99213; 99214

== ENCOUNTER 2021-04-28 13:47 | Outpatient (RCR) | payer MEDICARE, OTHER ==
[2021-07-24] MEDS ORDERED: CEPH500C PO (21:38)
== END 2021-07-27 | disposition home or self-care (01) ==
LOC: ONC 13:47
PROVIDERS: ATTEND Internal Medicine Hematology & Oncology
DX: C91.10 Chronic lymphocytic leukemia of B-cell type not having achieved remission (principal); D64.9 Anemia, unspecified; D75.89 Other specified diseases of blood and blood-forming organs; R91.1 Solitary pulmonary nodule
CPT/HCPCS: 96365

== ENCOUNTER 2021-05-23 13:31 | Emergency (ER) | payer MEDICARE, OTHER ==
[~2021-05-23] VITALS: Ht 154 cm; Wt 86.0 kg
[~2021-05-23 13:31] MED LIST changes: -FERRIC CARBOXYMALTOSE (CANCER) 750 MG in NS (IVPB) CANCER CENTER 250 ML IV SCH
--- OUTSIDE RECORDS SUMMARY | 2021-05-23 13:36 | XMS REPORT | Clinical Summary ---
Author Author [facility] Organization [facility] Address Unknown Phone Unavailable Care Team Providers Care Tenoner Operator Name Role Phone Theresa Kowalski RN Unavailable Unavailable Colleen Funes RN Unavailable Unavailable Demarco Byrd MD Unavailable Misty Garsia RN 2 Unavailable Tien Christianson MD Unavailable Unavailable Guillermina Davis NP PCP Steve Garcia MD Unavailable Cameron Bailey MD Unavailable Guillermina Davis NP 7 Source Comments Some departments are not documenting in the electronic medical record. If you d o not see the information that you expected, contact [facility] Management department at [phone] for further assistan ce in locating additional records.[facility] Allergies Comments Active Allergy Reactions Severity Noted Date Lisinopril COUGH Low 03/13/2017 Naproxen NAUSEA ONLY Low 12/22/2015 Prednisone NAUSEA ONLY Medium 03/22/2016 Medications End Date Status Medication Sig Dispensed Refills Start Date Active Magnesium Oxide 250 mg Take 500 mg 0 tab by mouth twice daily. Active allopurinol (ZYLOPRIM) Take 300 mg 0 300 mg tablet by mouth daily. Active levothyroxine (SYNTHROID) Take 88 mcg 0 88 mcg tablet by mouth daily. Active gabapentin (NEURONTIN) Take by 0 100 mg capsule mouth twice daily. 200 mg in the morning and 100 mg at bedtime Active ipratropium/albuterol Inhale 2 0 (COMBIVENT) 103/18 puffs by mcg/Actuation inhaler mouth into the lungs four times daily as needed. Active glimepiride (AMARYL) 4 mg Take 4 mg by 0 tablet mouth daily with breakfast. Active metFORMIN (GLUCOPHAGE) Take 500 mg 0 500 mg tablet by mouth twice daily with meals. Active aspirin EC 81 mg tablet Take 1 tablet 90 tablet 3 by mouth 8 daily. Take with food. Active linagliptin (TRADJENTA) 5 Take 5 mg by 0 mg tab mouth daily. Active sertraline (ZOLOFT) 100 Take 1 tablet 0 mg tablet by mouth 9 daily. Active vitamins, multiple tablet Take 1 tablet 0 by mouth daily. Active acetaminophen (TYLENOL) Take two 90 tablet 1 325 mg tablet tablets by 9 mouth four times daily. Active ezetimibe (ZETIA) 10 mg Take one 90 tablet 3 tablet tablet by 0 mouth daily. Active rosuvastatin (CRESTOR) 40 TAKE 1 TABLET 90 tablet 3 mg tablet EVERY DAY 0 Active cholecalciferol (VITAMIN Take 5,000 0 D-3) 5000 unit tablet Units by mouth daily. Active colchicine 0.6 mg tablet Take 0.6 mg 0 by mouth daily as needed. Gout Active meloxicam (MOBIC) 15 mg Take 15 mg by 0 tablet mouth daily. Active OMEGA-3 FATTY ACIDS-FISH Take 2,000 mg 0 OIL PO by mouth twice daily. Active omeprazole DR (PRILOSEC) Take 40 mg by 0 40 mg capsule mouth daily before breakfast. Active oxymetazoline (AFRIN) Apply 2 0 0.05 % nasal spray sprays to each nostril as directed twice daily as needed. Active ALPRAZolam (XANAX) 1 mg Take 1 mg by 0 tablet mouth at bedtime as needed for Anxiety. Takes 1-2 tablets nightly Active carvediloL (COREG) 6.25 Take one 180 tablet 3 mg tablet tablet by 1 mouth twice daily. Take with food. 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 03/22/16 Off-pump triple-vessel CABG, wi th SUMNER to LAD, saphenous vein to OM1 and saphenous vein to RCA. Endoscop ic harvesting of the left greater saphenous vein. - Dr. Byrd CAD (coronary artery disease) 07/27/2016 CVA (cerebral vascular accident) 03/26/2016 Morbid obesity with BMI of 40.0-44.9, adult 03/17/20 16 Anxiety 03/17/2016 CKD (chronic kidney disease) stage 3, GFR 30-59 ml/mi n 03/17/2016 Dyslipidemia associated with type 2 diabetes mellitus 03/17/2016 Type II diabetes mellitus 03/16/2016 Essential hypertension 03/16/2016 Hypothyroid 03/16/2016 Hyperlipidemia 03/16/2016 Resolved Problems Problem Noted Date Resolved Date Anticoagulated on Coumadin 04/25/2016 07/24/2017 Overview: Formatting of this note might be differ ent from the original. 04-25-16 First heme clinic visit. Pt sa jaison Gonzalez in consultation during hospital stay last month. Pt had Small cerebral infarct and was found to have slightly low values for Protein S and Antithrombin. I do not believe these values are consistent with inheri jenifer deficiencies and would not have her on warfarin for this. There may be cardiac issues for warfarin though pt has been in sinus rhythm for about 4 weeks. If cardiology is OK with stopping warfarin, I certainly am. Con tinue ASA and if warfarin is stopped I'd go to 325 mg ASA daily. Pt is see ing cardiology later today and will ask about this issue. Atrial fibrillation 03/28/2016 03/31/2016 Acute respiratory failure with hypoxia 03/26/2016 03/31/2016 Acute blood loss anemia 03/26/2016 03/31/2016 Postoperative anemia due to acute blood loss 03/24/2016 07/23/2018 Acute systolic heart failure 03/21/2016 6 Coronary artery disease involving flandreau coronary art ori without angina 03/17/2016 03/31/2016 pectoris Overview: Formatting of this note might be differ ent from the original. 03/17/16: Cardiac cath: 70% pLAD followed by 70-990% tandem lesions to mid. Lcx with 80% mid, OM1 100% occluded. RC A with 80% proximal stenosis, 50% mid, 80% mid/distal, 60% distal - CTS consult for CABG CAD (coronary artery disease) 03/17/2016 03/31/20 16 NSTEMI (non-ST elevated myocardial infarction) 03/17/2016 03/31/2016 History of non-ST elevation myocardial infarction (NSTEMI) 03/14/2016 03/31/2016 Overview: Formatting of this note might be differ ent from the original. 03/14/16: EKG changes and troponin elevat ion (0.36) s/p lap-constance in [facility] Encounters Care Team Description Date Type Specialty Bryson Nicolas MD Medication Refill 05/15/2021 Refill Cardiology Unknown, Unknown, MD Referral 03/22/2021 Telephone Hepatology from Last 3 Months Immunizations Name Administration Dates Next Due Flu Vaccine =>64 YO 07/09/2019 High-Dose (PF) Surgical History Surgery Date Site/Laterality Comments HX HEART CATHETERIZATION 03/09/2016 - 04/07/2016 CHOLECYSTECTOMY LA postoperative CORONARY ARTERY BYPASS 03/22/2016 N/A BYPASS GRAFT CORONARY ARTERY, SIOBHAN, EVH performed GRAFT by Demarco Byrd MD at OR Medical devices from this surgery are i n the Implants section. HIP SURGERY 09/09/2016 Left L hip/ Pelvis - fracture repair KNEE ARTHROPLASTY 08/28/2019 Knee/Left ARTHROPLASTY TOTAL KNEE performed by Uday Sánchez MD at [facility] OR/Periop Medical devices from this surgery are i n the Implants section. KNEE SURGERY KNEE REPLACEMENT KNEE JOINT MANIPULATION 12/18/2019 Knee/Left MANIPU LATION KNEE JOINT UNDER GENERAL ANESTHESIA performed by Uday Sánchez MD at [facility] OR CARDIAC SURGERY Medical History Medical History Date Comments Hyperlipidemia 03/16/2016 Essential hypertension 03/16/2016 History of non-ST elevation myocardial 03/14/2016 infarction (NSTEMI) Hypothyroid 03/16/2016 Morbid obesity with BMI of 40.0-44.9, 03/17/2016 adult (HCC) Anxiety 03/17/2016 Arthritis Chest pain Gout Neuropathy Patient denies Thyroid disease Back pain Osteoarthritis Numbness and tingling in left hand Due to CVA Arrhythmia Patient denies Coronary artery disease Heart attack (HCC) 03/14/2016 Stroke (HCC) 03/22/2016 RUE weakness Type II diabetes mellitus (HCC) 03/16/2016 Manage d with metformin & glimepiride Kidney insufficiency 07/09/19 BUN/Cr: 26/1.23 - M onitored by PCP Fibromyalgia No current treatment requir ed Cardiac arrhythmia Family History Medical History Relation Name Comments Cancer Brother Hypertension Daughter Arthritis Father Diabetes Father Heart Attack Father Hypertension Father Heart Attack Mother Cancer Sister Dementia Neg Hx Relation Name Status Comments Brother Daughter Alive Father Mother Sister Alive Social History Date Tobacco Use Types Packs/Day Years Used Never Smoker Smokeless Tobacco: Never Used Comments Alcohol Use Standard Drinks/Week No 0 (1 standard drink = 0.6 o z pure alcohol) Education Answer Date Recorded What is the highest level of school you have 10th grade 07/16/2020 completed or the highest degree you hav e received? Sex Assigned at Date Recorded Female 01/01/2020 6:13 PM CDT Last Filed Vital Signs Reading Time Taken Comments Vital Sign 166/70 02/02/2021 1:06 PM CDT Blood Pressure 80 02/02/2021 1:06 PM CDT Pulse 36.4 C (97.5 F) 12/18/2019 8:30 AM CDT Temperature 20 12/05/2019 1:17 PM ETL APPLICATION DEVELOPER Respiratory Rate 97% 02/02/2021 1:06 PM CDT Oxygen Saturation - - Inhaled Oxygen Concentration 93.4 kg (206 lb) 02/02/2021 1:06 PM CDT reported from [facility] today Weight 154.9 cm (5' 1") 02/02/2021 1:06 PM CDT reported from [facility] Height 38.92 02/02/2021 1:06 PM CDT Body Mass Index Plan of Treatment Health Maintenance Due Date Last Done Comments MEDICARE ANNUAL WELLNESS 1950 VISIT PNEUMONIA (PPSV23) 1955 VACCINE (1 of 2 - PPSV23) DILATED EYE EXAM 1967 DTAP/TDAP VACCINES (1 - 1967 Tdap) FOOT EXAM 1967 HEPATITIS C SCREENING 1967 MICROALBUMIN 1967 PHYSICAL (COMPREHENSIVE) 1967 EXAM BREAST CANCER SCREENING 1989 COLORECTAL CANCER 1999 SCREENING SHINGLES RECOMBINANT 1999 VACCINE (1 of 2) OSTEOPOROSIS 2014 SCREENING/MONITORING HBA1C 01/19/2021 07/21/2020, 07/09/2019, 05/31/2018, Additional history exists INFLUENZA VACCINE 07/09/2021 07/09/2019 Goals Goal Patient Associated Recent Progress Patient-Stat Aut hor Goal Type Problems ed? get better and get my knee General Yes Cla rk, Berenice, then my back RN Implants Device Identifier Shelf Expiration Date Model / Serial / L ot Implanted Type Area Manufactur er 10/05/2016 [id number] / [id number] / [id number] Device Sealing 3.8mm Heartstring DATASCOPE: Iii Proximal Delivery - [id number] CARDIAC Implanted: Qty: 1 on 03/22/2016 by ASSIST Demarco Byrd MD at [facility] 01/06/2023 [id number] / NA / [id number] Insert Tibial 6 8mm Knee Posterior Left: Knee DE PUY Stabilize Fix Bearing - Sna SYNTHES CO Implanted: Qty: 1 on 08/28/2019 by Uday Sánchez MD at [facility] [id number] / NA / NA Pin Threaded Headless 46mm - Sna Left: Knee ORTH ALIGN Implanted: Qty: 1 on 08/28/2019 by INC Uday Sánchez MD at [facility] [id number] / NA / NA Pin Threaded Headless 65mm - Sna Left: Knee ORTH ALIGN Implanted: Qty: 1 on 08/28/2019 by INC Uday Sánchez MD at [facility] 12/06/2020 [id number] / NA / [id number] Cement Bone Smartset Gentamicin Left: Knee DEPUY 40gm Medium Viscosity - Sna SYNTHES CO Implanted: Qty: 1 on 08/28/2019 by Uday Sánchez MD at [facility] 01/06/2021 [id number] / NA / [id number] Cement Bone Smartset Gentamicin Left: Knee DEPUY 40gm Medium Viscosity - Sna SYNTHES CO Implanted: Qty: 1 on 08/28/2019 by Uday Sánchez MD at [facility] 01/06/2021 [id number] / NA / [id number] Cement Bone Smartset Gentamicin Left: Knee DEPUY 40gm Medium Viscosity - Sna SYNTHES CO Implanted: Qty: 1 on 08/28/2019 by Uday Sánchez MD at [facility] 01/06/2021 [id number] / NA / [id number] Cement Bone Smartset Gentamicin Left: Knee DEPUY 40gm Medium Viscosity - Sna SYNTHES CO Implanted: Qty: 1 on 08/28/2019 by Uday Sánchez MD at [facility] 03/08/2029 [id number] / NA / [id number] Component Femoral 6 Narrow Knee Left: Knee DEPUY Left Posterior Stabilize - Sna SYNTHES CO Implanted: Qty: 1 on 08/28/2019 by Uday Sánchez MD at [facility] 04/07/2028 [id number] / NA / [id number] Baseplate Tibial Attune 4 Revision Left: Knee DE PUY Cemented Fix Bearing - Sna SYNTHES CO Implanted: Qty: 1 on 08/28/2019 by Uday Sánchez MD at [facility] 06/08/2029 [id number] / NA / [id number] Stem Femoral 50mm 14mm Cemented Left: Knee DEPUY Revision Attune Knee Sterile - Sna SYNTHES CO Implanted: Qty: 1 on 08/28/2019 by Uday Sánchez MD at [facility] 03/08/2023 [id number] / NA / [id number] Component Patellar 32mm Medialize Left: Knee DEP UY Dome Attune - Sna SYNTHES CO Implanted: Qty: 1 on 08/28/2019 by Uday Sánchez MD at [facility] Results Not on filefrom Last 3 Months Insurance Type Payer Benefit Subscriber ID Effective Phone Address Plan / Dates Group Medicare MEDICARE MEDICARE [id number] 2014-P PART A AND resent B Medicare CIGNA CIGNA [id number] 2016-P MEDICARE resent SUPPLEMENT [facility] [address] (Home) [place], [place] [phone] Advance Directives Patient Unix Administrator Explanation Type Date Recorded DPOA Advance 12/22/2015 7:08 PM Directive/DPOA Date Inactivated Comments Code Status Date Activated 08/29/2019 2:16 PM Full Code 08/28/2019 11:47 PM Provider has discussed Code Status Yes w/Patient or Family? 03/31/2016 12:56 PM Full Code 03/17/2016 5:38 PM Provider has discussed Code Status Yes w/Patient or Family?
--- OUTSIDE RECORDS SUMMARY | 2021-05-23 13:36 | XMS REPORT | Clinical Summary ---
Author Author [facility] Address Unknown Phone Unavailable Care Team Providers Care Arson Investigator Name Role Phone Arpit Lee PCP Unavailable Allergies Comments Active Allergy Reactions Severity Noted Date Prednisone Nausea And 12/16/2015 Vomiting Medications End Date Status Medication Sig Dispensed Refills Start Date Active pravastatin (PRAVACHOL) Take 40 mg by 0 40 MG tablet mouth 2 (two) times daily. Active levothyroxine (SYNTHROID, Take 100 mcg 0 LEVOTHROID) 100 MCG by mouth tablet every morning before breakfast. Active potassium chloride Take 30 mEq 0 (K-DUR,KLOR-CON) 10 MEQ by mouth 2 tabletIndications: 3 (two) times Tablets every day with daily. breakfast Indications: 3 Tablets every day with breakfast Active metformin (GLUCOPHAGE) Take 1,000 mg 0 1000 MG tablet by mouth 2 (two) times daily with meals. Active allopurinol (ZYLOPRIM) Take 300 mg 0 300 MG tablet by mouth daily. Active furosemide (LASIX) 40 MG Take 40 mg by 0 tablet mouth 2 (two) times daily. Active oxymetazoline (AFRIN) 2 sprays by 0 0.05 % nasal Each Nare route 2 (two) times daily as needed. Active albuterol-ipratropium Inhale 1 puff 0 (COMBIVENT RESPIMAT) into the 20-100 MCG/ACT AERS lungs every 6 inhaler (six) hours. Active glimepiride (AMARYL) 4 MG Take 4 mg by 0 tablet mouth every morning before breakfast. Active insulin aspart (NOVOLOG) Inject into 0 100 UNIT/ML injection the skin at bedtime. Unknown dose. Active levETIRAcetam (KEPPRA) Take 1 tablet 60 tablet 0 0 750 MG tabletIndications: (750 mg 6 Seizure Prophylaxis total) by following Subarachnoid mouth 2 (two) Hemorrhage times daily. Indications: Prevention of Seizures After Bleed in Brain Active Problems Problem Noted Date Respiratory alkalosis 12/17/2015 BMI 40.0-44.9, adult 12/17/2015 Acute viral syndrome 12/17/2015 Altered mental status, unspecified altered mental sta tus type 12/16/2015 Acute encephalopathy 12/16/2015 Incontinence of urine 12/16/2015 Hypoglycemia 12/16/2015 DM (diabetes mellitus) 12/16/2015 HTN (hypertension) 12/16/2015 Acute febrile illness 12/16/2015 Immunizations Name Administration Dates Next Due Influenza IIV3 PFree 06/09/2015 Pneumococcal 10/23/2012 Polysaccharide (23-valent) Social History Date Tobacco Use Types Packs/Day Years Used Never Smoker Comments: History obtained from Daughter Comments Alcohol Use Standard Drinks/Week No 0 (1 standard drink = 0.6 o z pure alcohol) Sex Assigned at Date Recorded Not on file Last Filed Vital Signs Reading Time Taken Comments Vital Sign 160/80 12/18/2015 7:59 AM HULL GRINDER Blood Pressure 72 12/18/2015 7:59 AM HULL GRINDER Pulse 36.9 C (98.5 F) 12/18/2015 7:59 AM HULL GRINDER Temperature 20 12/18/2015 7:59 AM HULL GRINDER Respiratory Rate 95% 12/18/2015 7:59 AM HULL GRINDER Oxygen Saturation - - Inhaled Oxygen Concentration 115.3 kg (254 lb 4.8 oz) 12/17/2015 4:08 AM HULL GRINDER No scd mach ine Weight 165.1 cm (5' 5") 12/16/2015 10:05 AM HULL GRINDER Height 42.32 12/16/2015 10:05 AM HULL GRINDER Body Mass Index Plan of Treatment Health Maintenance Due Date Last Done Comments COVID-19 Vaccine (1) 1961 Annual Wellness Visit 1967 Hepatitis C Screening 1967 DTaP,Tdap,and Td Vaccines 1968 (1 - Tdap) Breast Cancer 1999 Screening-Mammogram Colon Cancer Screening 1999 Zoster Vaccine (1 of 2) 1999 Pneumo-Vaccine: 65+Yrs (1 10/23/2017 10/23/2012 of 1 - PPSV23) Influenza Vaccine (#1) 2021 06/09/2015, 07/08/2014, 10/01/2013, Additional history exists Pneumo-Vaccine: Peds (0-5 Aged Out 10/23/2012 No l onger eligible based on patient's age to Yrs) & At-Risk Patients complete this topic (6-64 Yrs) HIB Vaccines Aged Out No longer eligible based on patient's age to complete this topic IPV Vaccines Aged Out No longer eligible based on patient's age to complete this topic Meningococcal Vaccine Aged Out No longer eligib le based on patient's age to complete this topic Rotavirus Vaccines Aged Out No longer eligible based on patient's age to complete this topic Results Not on filefrom Last 3 Months Insurance Type Payer Benefit Subscriber ID Effective Phone Address Plan / Dates Group Medicare MEDICARE MEDICARE [id number] 2014-P [address] [place] [address] CIGNA MEDICARE SUPPLEMENT CIGNA [id number] 2015-P [address] MEDICARE resent [id number], [place] [address] Advance Directives For more information, please contact: [phone] Patient Director Instrumentation Explanation Type Date Recorded Advance Directives and Living Will Power of Cyber Security Instructor Date Inactivated Comments Code Status Date Activated Full Code 12/18/2015 10:13 AM 12/18/2015 10:13 AM Full Code 12/16/2015 10:04 AM Care Teams Start Date End Date Arson Investigator Relationship Specialty 12/16/15 Arpit Lee PCP - General Emergency Medicine
--- OUTSIDE RECORDS SUMMARY | 2021-05-23 13:36 | XMS REPORT | Encounter Summary ---
Author Author [facility] Organization [facility] Address Unknown Phone Unavailable Care Team Providers Care Design Sales Consultant Name Role Phone Theresa Kowalski RN Unavailable Unavailable Colleen Funes RN Unavailable Unavailable Demarco Byrd MD Unavailable Misty Garsia RN 2 Unavailable Tien Christianson MD Unavailable Unavailable Guillermina Davis NP PCP Steve Garcia MD Unavailable Cameron Bailey MD Unavailable Guillermina Davis NP 7 Reason for Visit * Reason Comments Medication Refill Encounter Details Care Team Description Date Type Department Bryson Nicolas MD [address] [facility] [address] [place], [place] [id number] Medication Refill 05/15/2021 Refill Cardiology: [facility] [address] [facility], [address] [place] [address] Social History Date Tobacco Use Types Packs/Day [...] Date Recorded Female 01/01/2020 6:13 PM CDT documented as of this encounter Functional Status Date of Assessment Functional Status Response 09/14/2020 Does the patient have a hearing impairment: No 09/14/2020 Does the patient have a visual impairment: Yes - Marleen hamlin 12/05/2019 Does the patient have impaired ambulation: Yes 12/05/2019 Does the patient have an activity of daily living No (ADL) impairment: 12/05/2019 Does the patient have an instrumental activity of Ye s daily living (IADL) impairment: Date of Assessment Cognitive Status Response 12/05/2019 Does the patient have a cognitive impairment: No documented as of this encounter Ordered Prescriptions Start Date End Date Prescription Sig Dispensed Refills 05/17/2021 spironolactone TAKE 1 TABLET 90 tablet 3 (ALDACTONE) 25 mg tablet EVERY DAY WITH FOOD documented in this encounter Plan of Treatment Not on filedocumented as of this encounter Goals Goal Patient Associated Recent Progress Patient-Stat Aut hor Goal Type Problems ed? get better and get my knee General Yes Cyndy alfonso, Berenice, then my back RN documented as of this encounter Visit Diagnoses Not on filedocumented in this encounter Discontinued Medications Start Date End Date Medication Sig Discontinue Reason 03/13/2020 05/17/2021 spironolactone TAKE 1 (ALDACTONE) 25 mg tablet TABLET EVERY DAY WITH FOOD documented as of this encounter Additional Health Concerns Assessment Noted Time PHQ-2 Depression Total Score: 0 02/02/2021 1:08 PM CDT documented as of this encounter
--- NOTE | 2021-05-23 13:43 | ED Lower Extremity ---
General Chief Complaint: Lower Extremity Stated Complaint: FALL; LT HIP INJ Nursing Triage Note: PT FELL OUTSIDE OF THE [facility] ONTO HER RIGHT HIP. SHE IS COMPLAINING OF LEFT HIP PAIN. SHEJUST HAD THAT HIP REPLACED ON MARCH OF THIS YEAR. Source: patient History of Present Illness Date Seen by Provider: May 23, 2021 Time Seen by Provider: 13:40 Initial Comments Patient is a 71-year-old female with history of left hip replacement 2 months ago who presents with accidental fall from standing due to tripping with an isolated left hip injury. Patient states she tripped over a curb falling on her right size. She reports sharp pain in left hip but reports left hip pain. Patient is unable to stand or weight-bear on left leg. Denies distal extremity weakness or loss of sensation. Injury occurred prior to ED arrival. Pain is rated mild to moderate. No other symptoms or complaints. Onset: just prior to arrival Severity: moderate Pain/Injury Location: left hip Method of Injury: other Modifying Factors: Improves With Other Allergies and Home Medications Allergies Coded Allergies: prednisone (Verified Allergy, Intermediate, 01/08/19) PO MAKES HER HAVE NAUSEA, IM IS FINE lisinopril (Verified Adverse Reaction, Mild, 01/08/19) COUGH Home Medications Cephalexin 500 Mg Tablet, 500 MG PO QID Prescribed by: ELINOR ROCHA on 10/04/19 152 Levetiracetam 500 Mg Tablet, 500 MG PO NEEDED Prescribed by: OMAYRA SIMON on 07/19/192030 Ondansetron 4 Mg Tab.rapdis, 4 MG PO Q6H PRN for NAUSEA/VOMITING Prescribed by: OMAYRA SIMON on 07/19/192030 Patient Home Medication List Home Medication List Reviewed: Yes Review of Systems Constitutional: see HPI EENTM: see HPI Respiratory: see HPI Cardiovascular: see HPI Gastrointestinal: see HPI Genitourinary: see HPI Musculoskeletal: see HPI Skin: see HPI Psychiatric/Neurological: See HPI All Other Systems Reviewed Negative Unless Noted: Yes Past Nhaevnb-Conuya-Crdxof Hx Patient Social History Tobacco Use?: No Use of E-Cig and/or Vaping dev: No Substance use?: No Alcohol Use?: No Pt feels they are or have been: No Immunizations Up To Date First/Initial COVID19 Vaccinat: MARCH 2021 Second COVID19 Vaccination Isra: APRIL 2021 COVID19 Vaccine Carriage Dogger: MODERNA Seasonal Allergies Seasonal Allergies: No Past Medical History Surgeries: Yes (CABG, LT HIP FX) Gallbladder Respiratory: Yes Asthma Cardiac: Yes Coronary Artery Disease Neurological: Yes Seizure Disorder, Stroke Genitourinary: No Gastrointestinal: No Musculoskeletal: No Endocrine: Yes Diabetes, Non-Insulin dep HEENT: No Cancer: No Psychosocial: Yes Anxiety Integumentary: No Psoriasis Blood Disorders: No Physical Exam Vital Signs Vital Signs - First Documented 05/23/21 13:31 Temp 35.8 Pulse 77 Resp 16 B/P (MAP) 109/70 (83) Pulse Ox 92 O2 Delivery Room Air Capillary Refill : Less Than 3 Seconds Height, Weight, BMI Height: 5'2.00" Weight: 202lbs. oz. 91.204391md; 36.00 BMI Method:Stated General Appearance: WD/WN, no apparent distress, moderate distress HEENT: PERRL/EOMI, normal ENT inspection Neck: non-tender, full range of motion, supple Cardiovascular: normal peripheral pulses Respiratory: chest non-tender, lungs clear Gastrointestinal: non tender, soft Hips: left hip bone tenderness, left hip limited range of motion, left hip soft tissue tenderness, left hip other Legs: left leg non-tender, left leg normal inspection Knees: left knee non-tender Feet: left foot non-tender Neurologic/Tendon: normal sensation Neurologic/Psychiatric: jewel blocker and sawyer II-XII nml as tested, no motor/sensory deficits, alert, oriented x 3 Skin: normal color, warm/dry Progress/Results/Core Measures Results/Orders Lab Results Laboratory Tests Test 05/23/21 14:03 Range/Units White Blood Count 22.0 H 4.3-11.0 10^3/uL Red Blood Count 4.11 L 4.35-5.85 10^6/uL Hemoglobin 12.6 11.5-16.0 G/DL Hematocrit 41 35-52 % Mean Corpuscular Volume 99 80-99 FL Mean Corpuscular Hemoglobin 31 25-34 PG Mean Corpuscular Hemoglobin Concent 31 L 32-36 G/DL Red Cell Distribution Width 16.1 H 10.0-14.5 % Platelet Count 131 130-400 10^3/uL Mean Platelet Volume 11.0 H 7.4-10.4 FL Immature Granulocyte % (Auto) 0 % Neutrophils (%) (Auto) 23 L 42-75 % Lymphocytes (%) (Auto) 73 H 12-44 % Monocytes (%) (Auto) 2 0-12 % Eosinophils (%) (Auto) 1 0-10 % Basophils (%) (Auto) 1 0-10 % Neutrophils # (Auto) 5.0 1.8-7.8 X 10^3 Lymphocytes # (Auto) 16.1 H 1.0-4.0 X 10^3 Monocytes # (Auto) 0.5 0.0-1.0 X 10^3 Eosinophils # (Auto) 0.3 0.0-0.3 10^3/uL Basophils # (Auto) 0.1 0.0-0.1 10^3/uL Immature Granulocyte # (Auto) 0.0 0.0-0.1 10^3/uL Neutrophils % (Manual) 32 % Lymphocytes % (Manual) 66 % Monocytes % (Manual) 1 % Eosinophils % (Manual) 1 % Toxic Granulation 4+ Polychromasia SLIGHT Poikilocytosis SLIGHT Basophilic Stippling SLIGHT Tear Drop Cells SLIGHT Elliptocytes SLIGHT Sodium Level 139 135-145 MMOL/L Potassium Level 5.0 3.6-5.0 MMOL/L Chloride Level 103 98-107 MMOL/L Carbon Dioxide Level 26 21-32 MMOL/L Anion Gap 10 5-14 MMOL/L Blood Urea Nitrogen 22 H 7-18 MG/DL Creatinine 1.29 0.60-1.30 MG/DL Estimat Glomerular Filtration Rate 41 BUN/Creatinine Ratio 17 Glucose Level 239 H 70-105 MG/DL Calcium Level 9.2 8.5-10.1 MG/DL Corrected Calcium 9.3 8.5-10.1 MG/DL Total Bilirubin 0.5 0.1-1.0 MG/DL Aspartate Amino Transf (AST/SGOT) 29 5-34 U/L Alanine Aminotransferase (ALT/SGPT) 20 0-55 U/L Alkaline Phosphatase 81 40-136 U/L Total Protein 6.4 6.4-8.2 GM/DL Albumin 3.9 3.2-4.5 GM/DL My Orders Orders - JUAN RIZZO DO Pelvis With Left Hip 2-3 View (05/23/21 13:47) Fentanyl Inj (Sublimaze Injection) (05/23/21 14:00) Ondansetron Injection (Zofran Injectio (05/23/21 14:00) Femur 2 View Left (05/23/21 14:09) Chest 1 View Ap/Pa Only (05/23/21 14:09) Cbc With Automated Diff (05/23/21 14:23) Comprehensive Metabolic Panel (05/23/21 14:23) Ekg-Prn For Chest Pain Or Rhyt (05/23/21 14:23) Ekg Tracing (05/23/21 14:32) Manual Differential (05/23/21 14:03) Morphine Injection (Morphine Injection (05/23/21 15:23) Medications Given in ED Current Medications Medications Dose Ordered Sig/Ileana Route Start Time Stop Time Status Last Admin Dose Admin Fentanyl Citrate 50 mcg ONCE ONCE IVP 05/23/21 14:00 05/23/21 14:01 DC 05/23/21 13:51 50 MCG Ondansetron HCl 4 mg ONCE ONCE IVP 05/23/21 14:00 05/23/21 14:01 DC 05/23/21 13:50 4 MG Vital Signs/I&O 05/23/21 05/23/21 13:31 16:25 Temp 35.8 36.5 Pulse 77 72 Resp 16 16 B/P (MAP) 109/70 (83) 124/68 Pulse Ox 92 96 O2 Delivery Room Air Room Air Blood Pressure Mean: 83 Departure Communication (Admissions) Pelvis/left hip: Angulated proximal femur fracture at location of hip prosthesis. Chest x-ray: No acute cardiopulmonary disease. EKG: Normal sinus rhythm, no acute ST-T wave changes. Patient with isolated left hip fracture. Neurovascularly intact. Pain ad dressed. No orthopedic surgery coverage at this facility. Patient accepted by Dr. Geovanny Dupont at [facility] at 1546. Impression Primary Impression: Femur fracture, left Disposition: XFER SHT-TRM HOSP Condition: Stable Transfer Transfer Reason: Exceeds level of care Time Spoke to Accepting Phy: 15:45 Departure-Patient Inst. Referrals: [facility] (PCP/Family) Primary Care Physician JUAN RIZZO DO May 23, 2021 13:43
[2021-05-23] MEDS ORDERED: fentaNYL INJ 100 MCG/2 ML AMP IVP ONE ×2 (14:00→17:00)
[2021-05-23] MEDS ORDERED: ONDANSETRON 4 MG/2 ML (SDV) Z0FRAN IVP ONE (14:00)
[2021-05-23 14:38] LABS: BASOPHILS % (AUTO) 1 % (0-10); EOSINOPHILS % (AUTO) 1 % (0-10); HEMATOCRIT 41 % (35-52); HEMOGLOBIN 12.6 G/DL (11.5-16.0); LYMPHOCYTES % (AUTO) 73 % (12-44); MEAN CORPUSCULAR HEMOGLOBIN 31 PG (25-34); MEAN CORPUSCULAR HGB CONC 31 G/DL (32-36); MEAN CORPUSCULAR VOLUME 99 FL (80-99); MONOCYTES % (AUTO) 2 % (0-12); NEUTROPHILS % (AUTO) 23 % (42-75); PLATELET COUNT 131 10^3/uL (130-400)
--- NOTE | 2021-05-23 14:38 | Diagnostic Imaging Report ---
Clinical indications: Patient with left femur fracture. Exam: Portable chest x-ray upright view. Comparisons: Chest x-ray dated 07/19/2019. Findings: Lungs/pleura: Lungs are clear. There is no pneumothorax. There is no pleural effusion. Mediastinum: Unremarkable. Pulmonary vasculature: Unremarkable. Heart: Unremarkable heart size is upper limits of normal for portable projection. There are postop changes to the chest with sternotomy wires and mediastinal clips. Bones/extrathoracic soft tissue: Unremarkable there are degenerative spurs involving the thoracic spine and left curvature of the lower lumbar spine. Impression: There is no radiographic evidence of acute cardiopulmonary process. Dictated by: Dictated on workstation # [id number]
--- NOTE | 2021-05-23 14:38 | Diagnostic Imaging Report ---
Clinical indications: Patient is status post trauma with left hip pain. Patient with recent fall. EXAM: X-ray pelvis AP view and exited left hip, crosstable lateral view. Comparisons: X-ray pelvis dated 01/02/2019. FINDINGS: There is interval post op changes with removal of the previously seen 3 screws affixing the proximal left femur. There has been interval placement left total hip arthroplasty with cerclage wires. There is a periprosthetic fracture which is oblique extending from the proximal fibular diaphysis through to the intertrochanteric region. There is slight lateral and ventral apex angulation of the fracture region. There is also slight distraction of the fracture region. There is no other fracture seen on this exam. Right hip shows no significant abnormality. Multiple phleboliths are seen in the pelvis. IMPRESSION: 1.: There is displaced and angulated periprosthetic fracture with oblique fracture involving the proximal left femoral diaphysis extending to the intertrochanteric periprosthetic region. Dictated by: Dictated on workstation # [id number]
[2021-05-23 14:39] LABS: BASOPHILS # (AUTO) 0.1 10^3/uL (0.0-0.1); EOSINOPHILS # (AUTO) 0.3 10^3/uL (0.0-0.3); LYMPHOCYTES # (AUTO) 16.1 X 10^3 (1.0-4.0); MONOCYTES # (AUTO) 0.5 X 10^3 (0.0-1.0)
--- NOTE | 2021-05-23 14:42 | Diagnostic Imaging Report ---
INDICATION: Fracture follow-up. COMPARISON: Pelvis radiograph from earlier same day. FINDINGS: There is an acute simple oblique fracture in the subtrochanteric region of the left femur at the tip of the femoral prosthesis. The proximal fragment has lateral angulation and there is approximately 2 cm of fracture gap diastasis distally. The total hip arthroplasty has components in good alignment, otherwise. Total knee arthroplasty also has good alignment. There is no rotation of the distal femur. IMPRESSION: Acute periprosthetic fracture in the subtrochanteric region of the left proximal femur. Dictated by: Dictated on workstation # [id number]
[2021-05-23 14:55] LABS: EOSINOPHILS % (MANUAL) 1 %; LYMPHOCYTES % (MANUAL) 66 %; MONOCYTES % (MANUAL) 1 %; NEUTROPHILS % (MANUAL) 32 %
[2021-05-23 14:56] LABS: ELLIPT/OVALOCYTES SLIGHT; POIKILOCYTOSIS SLIGHT; POLYCHROMASIA SLIGHT; TEAR DROP CELLS SLIGHT; TOXIC GRANULATION/VACUOLAZATIO 4+
[2021-05-23 15:03] LABS: CREATININE SERUM 1.29 MG/DL (0.60-1.30)
[2021-05-23 15:04] LABS: ALBUMIN 3.9 GM/DL (3.2-4.5); BILIRUBIN,TOTAL 0.5 MG/DL (0.1-1.0); CALCIUM 9.2 MG/DL (8.5-10.1); TOTAL PROTEIN 6.4 GM/DL (6.4-8.2)
[2021-05-23] MEDS ORDERED: morphine INJ 10 MG/ML 1ML (SYR OR VIAL) IVP STA ×2 (15:23→16:45)
[2021-05-23 16:25] VITALS: BP 124/68
[2021-05-23] MEDS ORDERED: fentaNYL INJ 100 MCG/2 ML AMP ONE (16:46)
== END 2021-05-23 16:35 | disposition short-term general hospital (02) ==
LOC: EDUNIT# 13:31 → ER FS 13:32
DX: S72.22XA Displaced subtrochanteric fracture of left femur, initial encounter for closed fracture (principal); M97.12XA Periprosthetic fracture around internal prosthetic left knee joint, initial encounter; J45.909 Unspecified asthma, uncomplicated; G40.909 Epilepsy, unspecified, not intractable, without status epilepticus; E11.9 Type 2 diabetes mellitus without complications; Z86.73 Personal history of transient ischemic attack (TIA), and cerebral infarction without residual deficits; Z79.899 Other long term (current) drug therapy; W01.0XXA Fall on same level from slipping, tripping and stumbling without subsequent striking against object, initial encounter
CPT/HCPCS: 36415; 51702; 71045; 73502; 73552; 80053; 85007; 85027; 93005

== ENCOUNTER 2021-07-24 19:27 | Emergency (ER) | payer MEDICARE, OTHER ==
--- OUTSIDE RECORDS SUMMARY | 2021-07-24 19:33 | XMS REPORT | Clinical Summary ---
Author Author [facility] Address Unknown Phone Unavailable Care Team Providers Care Tire And Tube Repairer Name Role Phone Arpit Lee PCP Unavailable [...] Comments Vital Sign 160/80 12/18/2015 7:59 AM MOBILE PRACTICE LEAD Blood Pressure 72 12/18/2015 7:59 AM MOBILE PRACTICE LEAD Pulse 36.9 C (98.5 F) 12/18/2015 7:59 AM MOBILE PRACTICE LEAD Temperature 20 12/18/2015 7:59 AM MOBILE PRACTICE LEAD Respiratory Rate 95% 12/18/2015 7:59 AM MOBILE PRACTICE LEAD Oxygen Saturation - - Inhaled Oxygen Concentration 115.3 kg (254 lb 4.8 oz) 12/17/2015 4:08 AM MOBILE PRACTICE LEAD No scd mach ine Weight 165.1 cm (5' 5") 12/16/2015 10:05 AM MOBILE PRACTICE LEAD Height 42.32 12/16/2015 10:05 AM MOBILE PRACTICE LEAD Body Mass Index Plan of Treatment Health [...] Plan / Dates Group Medicare MEDICARE MEDICARE [id number] 2014-P [address] [place] [address] CIGNA MEDICARE SUPPLEMENT CIGNA [id number] 2015-P [address] MEDICARE [id number] [place], [place] [address] Advance Directives For more information, please contact: [phone] Patient Machine Printer Hose Explanation Type Date Recorded Advance Directives and Living Will Power of Sleep Lab Technologist Date Inactivated Comments Code Status Date Activated Full Code 12/18/2015 10:13 AM 12/18/2015 10:13 AM Full Code 12/16/2015 10:04 AM Care Teams Start Date End Date Tire And Tube Repairer Relationship Specialty 12/16/15 Arpit Lee PCP - General Emergency Medicine
--- OUTSIDE RECORDS SUMMARY | 2021-07-24 19:34 | XMS REPORT | Encounter Summary ---
Author Author [facility] Organization [facility] Address Unknown Phone Unavailable Care Team Providers Care Senior Contract Specialist Name Role Phone Theresa Kowalski RN Unavailable Unavailable Colleen Funes RN Unavailable Unavailable Demarco Byrd MD Unavailable Misty Garsia RN 2 Unavailable Tien Christianson MD Unavailable Unavailable Guillermina Davis NP PCP Steve Garcia MD Unavailable Cameron Bailey MD Unavailable Guillermina Davis NP 7 Encounter Details Care Team Description Date Type Department 07/07/2021 Travel Social History Date Tobacco Use Types Packs/Day Years Used Never Smoker Smokeless Tobacco: Never Used Comments Alcohol Use Standard Drinks/Week Not Currently 0 (1 standard drink = 0.6 o z pure alcohol) Education Answer Date Recorded What is the highest level of school you have 10th grade 07/16/2020 completed or the highest degree you hav e received? Sex Assigned at Date Recorded Female 01/01/2020 6:13 PM CDT Date Recorded COVID-19 Exposure Response 07/07/2021 2:29 PM CDT In the last month, have you been in contact with No / Unsure someone who was confirmed or suspected to have Coronavirus / COVID-19? documented as of this encounter Functional Status Date of Assessment Functional Status Response 06/07/2021 Does the patient have a hearing impairment: No 06/07/2021 Does the patient have a visual impairment: No 06/07/2021 Does the patient have impaired ambulation: No 06/07/2021 Does the patient have an activity of daily living No (ADL) impairment: 06/07/2021 Does the patient have an instrumental activity of No daily living (IADL) impairment: Date of Assessment Cognitive Status Response 06/07/2021 Does the patient have a cognitive impairment: No documented as of this encounter Plan of Treatment Not on filedocumented as of this encounter Goals Goal Patient Associated Recent Progress Patient-Stat Aut hor Goal Type Problems ed? get better and get my knee General Yes Cyndy alfonso, Berenice, then my back RN Resume normal activities Hospital On track (05/24/2021 Yes Alessandro, 2:25 PM CDT) MATT Aranda documented as of this encounter Visit Diagnoses Not on filedocumented in this encounter Additional Health Concerns Assessment Noted Time A fall risk assessment has been completed for the pat ient 06/07/2021 9:30 AM CDT PHQ-2 Depression Total Score: 0 02/02/2021 1:08 PM CDT documented as of this encounter
--- OUTSIDE RECORDS SUMMARY | 2021-07-24 19:34 | XMS REPORT | Encounter Summary ---
Author Author [facility] Organization [facility] Address Unknown Phone Unavailable Care Team Providers Care Rail Loader Name Role Phone Theresa Kowalski RN Unavailable Unavailable oClleen Funes RN Unavailable Unavailable Demarco Byrd MD Unavailable Misty Garsia RN 2 Unavailable Tien Christianson MD Unavailable Unavailable Guillermina Davis NP PCP Steve Garcia MD Unavailable Cameron Bailey MD Unavailable Guillermina Davis NP 7 Reason for Visit * Reason Comments Medication Refill Encounter Details Care Team Description Date Type Department Ayad Ontiveros MD [address] [facility] [address] [place] [address] 07/19/2021 Refill Clinical Pharmacolo gy: Main [place], [facility] [address] [facility] [place] [address] Social History Date Tobacco Use Types Packs/Day [...] Date End Date Prescription Sig Dispensed Refills 07/20/2021 rosuvastatin (CRESTOR) 40 TAKE 1 TABLET 90 tablet 3 mg tablet EVERY DAY documented in this encounter Plan of Treatment Not on filedocumented as of this encounter Goals Goal Patient Associated Recent Progress Patient-Stat Aut hor Goal Type Problems ed? get better and get my knee General Yes Berenice Tillman, then my back RN Resume normal activities Hospital On track (05/24/2021 Yes Alessandro, 2:25 PM CDT) MATT Aranda documented as of this encounter Visit Diagnoses Not on filedocumented in this encounter Discontinued Medications Start Date End Date Medication Sig Discontinue Reason 06/25/2020 07/20/2021 rosuvastatin (CRESTOR) 40 TAKE 1 mg tablet TABLET EVERY DAY documented as of this encounter Additional Health Concerns Assessment Noted Time A fall risk assessment has been completed for the pat ient 06/07/2021 9:30 AM CDT PHQ-2 Depression Total Score: 0 02/02/2021 1:08 PM CDT documented as of this encounter
--- OUTSIDE RECORDS SUMMARY | 2021-07-24 19:34 | XMS REPORT | Encounter Summary ---
Author Author [facility] Organization [facility] Address Unknown Phone Unavailable Care Team Providers Care Substation Operator Chief Name Role Phone Theresa Kowalski RN Unavailable Unavailable Colleen Funes RN Unavailable Unavailable Demarco Byrd MD Unavailable Misty Garsia RN 2 Unavailable Tien Christianson MD Unavailable Unavailable Guillermina Davis NP PCP Steve Garcia MD Unavailable Cameron Bailey MD Unavailable Guillermina Davis NP 7 Reason for Visit * Reason Comments Medication Refill Encounter Details Care Team Description Date Type Department Bryson Nicolas MD [address] [facility] [id number] [place], [place] [id number] Medication Refill 07/19/2021 Refill Cardiology: [facility] [address] [facility], [address] [place] [address] Social History Date Tobacco Use [...] Date End Date Prescription Sig Dispensed Refills 07/19/2021 ezetimibe (ZETIA) 10 mg TAKE 1 TABLET 90 tablet 3 tablet EVERY DAY documented in this encounter [...] Date End Date Medication Sig Discontinue Reason 05/26/2020 07/19/2021 ezetimibe (ZETIA) 10 mg Take one tablet tablet by mouth daily. documented as of this encounter Additional Health Concerns Assessment Noted Time A fall risk assessment has been completed for the pat ient 06/07/2021 9:30 AM CDT PHQ-2 Depression Total Score: 0 02/02/2021 1:08 PM CDT documented as of this encounter
--- OUTSIDE RECORDS SUMMARY | 2021-07-24 19:34 | XMS REPORT | Encounter Summary ---
Author Author [facility] Organization [facility] Address Unknown Phone Unavailable Care Team Providers Care Disability Specialist Name Role Phone Theresa Kowalski RN Unavailable Unavailable Colleen Funes RN Unavailable Unavailable Demarco Byrd MD Unavailable Misty Garsia RN 2 Unavailable Tien Christianson MD Unavailable Unavailable Guillermina Davis NP PCP Steve Garcia MD Unavailable Cameron Bailey MD Unavailable Guillermina Davis NP 7 Reason for Referral * Radiology Services (Routine) Referred By Contact Referred To Contact Status Reason Specialty Diagnoses / Procedures Raman Wu MD [address] [place] [address] New Request Radiology Diagnoses S/P ORIF (open reduction internal fixation) fracture P rocedures FEMUR 2 VIEWS LEFT Electronically signed by Raman Wu MD at Encounter Details Care Team Description Date Type Department Raman Wu MD [address] [place], [place] [id number] S/P ORIF (open reduction internal fixati on) fracture (Primary Dx) 07/05/2021 Orders Only Orthopedics and Spo rts Medicine: Main [place], [facility] [address] [facility] [place] [address] Social History Date Tobacco Use [...] PM CDT Date Recorded COVID-19 Exposure Response 06/09/2021 9:33 AM CDT In the last month, have you [...] MATT Aranda documented as of this encounter Results * FEMUR 2 VIEWS LEFT (07/07/2021 2:36 PM CDT) Specimen Left Impressions Performed At 1. Long segment lateral plate and screw fixation de traverses a healing, [facility] mildly displaced left proximal femur pe riprosthetic fracture, with left total hip arthroplasty otherwise in standard alignment. Cerclage cables about the fracture site. 2. Left total knee arthroplasty in st andard alignment. No evident hardware complication. Cemented tibial component . Surgical clips about the medial left knee. Finalized by Fadi Anaya M.D. on 06/10 3:51 PM. Dictated by Fadi Anaya M.D. on 07/07/2021 3:48 PM. Narrative Performed At Exam: FEMUR 2 VIEWS LEFT [facility] CLINICAL INDICATION: 71 years S/p ORIF left femoral shaft fracture 05/25/21 COMPARISON: Intraoperative fluoroscopy 05/25/2021. Procedure Note Interface, Radiant Results - 07/07/2021 3:54 PM CDT Exam: FEMUR 2 VIEWS LEFT CLINICAL INDICATION: 71 years S/p ORIF left femoral shaft fracture 05/25/21 COMPARISON: Intraoperative fluoroscopy 05/25/2021. IMPRESSION 1. Long segment lateral plate and screw fixation device traverses a healing, mildly displaced left proximal femur periprosthetic fracture, with left total hip arthroplasty otherwise in standard alignment. Cerclage cables about the fracture site. 2. Left total knee arthroplasty in blanche dard alignment. No evident hardware complication. Cemented tibial component. Surgical clips about the medial left knee. Finalized by Fadi Anaya M.D. on 07/07/2021 3:51 PM. Dictated by Fadi Anaya M.D. on 07/07/2021 3:48 PM. Performing Organization Address City/State/ZIP Code P curry Number [facility] documented in this encounter Visit Diagnoses Diagnosis S/P ORIF (open reduction internal fixat ion) fracture - Primary Other postprocedural status documented in this encounter Additional Health Concerns Assessment Noted Time A fall risk assessment has been completed for the pat ient 06/07/2021 9:30 AM CDT PHQ-2 Depression Total Score: 0 02/02/2021 1:08 PM CDT documented as of this encounter
--- OUTSIDE RECORDS SUMMARY | 2021-07-24 19:34 | XMS REPORT | Clinical Summary ---
Author Author [facility] Organization [facility] Address Unknown Phone Unavailable Care Team Providers Care Supervisor Drying [employer] Winding Name Role Phone Theresa Kowalski RN Unavailable [...] you expected, contact Release of Information in [facility] Health Information Management department at [phone] for further assistan ce in locating additional records.[facility] Allergies Comments Active Allergy Reactions Severity Noted Date Lisinopril COUGH Low 03/13/2017 Naproxen NAUSEA ONLY Low 12/22/2015 Prednisone NAUSEA ONLY Medium 03/22/2016 Medications End Date Status Medication Sig Dispensed Refills Start Date Active Magnesium Oxide 500 mg Take 500 mg 0 tab by mouth twice daily. Active allopurinol (ZYLOPRIM) Take 300 mg 0 300 mg tablet by mouth daily. Active ipratropium/albuterol Inhale 2 0 (COMBIVENT) 103/18 puffs by mcg/Actuation inhaler mouth into the lungs daily as needed. Active sertraline (ZOLOFT) 100 Take 1 tablet 0 07/11/ 201 mg tablet by mouth 9 daily. Active vitamins, multiple tablet Take 1 tablet 0 by mouth daily. Active cholecalciferol (VITAMIN Take 5,000 0 D-3) 5000 unit tablet Units by mouth daily. Active colchicine 0.6 mg tablet Take 0.6 mg 0 by mouth daily as needed. Gout Active fish oil /omega-3 fatty Take 2,000 mg 0 acids (SEA-OMEGA) by mouth 340/1000 mg capsule twice daily. Active oxymetazoline (AFRIN) Apply 2 0 0.05 % nasal spray sprays to each nostril as directed twice daily as needed. Active dapagliflozin-metformin Take 1 tablet 0 (XIGDUO XR) 10-1,000 mg by mouth TBph daily. Active Snvwcsdjekdgv-Tk-Jzkl-Min Take 1 tablet 0 erals 18-0.4 mg tab by mouth daily. Active albuterol 0.083% Inhale 2.5 mg 0 (PROVENTIL) 2.5 mg /3 mL solution by (0.083 %) nebulizer nebulizer as solution directed every 4 hours as needed for Wheezing or Shortness of Breath. Active acetaminophen (TYLENOL) Take two 0 325 mg tablet tablets by 1 mouth every 6 hours as needed for Pain. Active polyethylene glycol 3350 Take one 12 each 0 0 (MIRALAX) 17 g packet by 1 packetIndications: mouth twice constipation daily. Hold dose if having loose bowel movements Indications: constipation Active omeprazole DR (PRILOSEC) Take one 90 capsule 0 0 40 mg capsule capsule by 1 mouth daily before breakfast. Active levothyroxine (SYNTHROID) Take one 90 tablet 0 88 mcg tablet tablet by 1 mouth daily. Active melatonin (MELATIN) 3 mg Take one 90 tablet 0 0 tablet tablet by 1 mouth at bedtime daily. Active linaGLIPtin (TRADJENTA) 5 Take one 30 tablet 0 mg tablet tablet by 1 mouth daily. Active insulin glargine (LANTUS Inject 15 mL 1 0 SOLOSTAR U-100 INSULIN) fourteen 1 100 unit/mL (3 mL) Units under injection PEN the skin at bedtime daily. Active carvediloL (COREG) 3.125 Take one 60 tablet 1 0 06/07/202 mg tablet tablet by 1 mouth twice daily. Take with food. Active gabapentin (NEURONTIN) Take two 90 capsule 1 100 mg capsule capsules by 1 mouth daily with breakfast AND one capsule at bedtime daily. Active oxyCODONE (ROXICODONE) 5 Take one 7 tablet 0 0 mg tablet tablet by 1 mouth every 4 hours while awake as needed Active methocarbamoL (ROBAXIN) Take one 7 tablet 0 500 mg tablet tablet by 1 mouth every 8 hours as needed for Spasms. Active rosuvastatin (CRESTOR) 40 TAKE 1 TABLET 90 tablet 3 mg tablet EVERY DAY 1 Active ezetimibe (ZETIA) 10 mg TAKE 1 TABLET 90 tablet 3 tablet EVERY DAY 1 07/19/2021 Discontinued ezetimibe (ZETIA) 10 mg Take one 90 tablet 3 tablet tablet by 0 mouth daily. 07/20/2021 Discontinued rosuvastatin (CRESTOR) 40 TAKE 1 TABLET 90 tablet 3 mg tablet EVERY DAY 0 07/06/2021 aspirin EC 81 mg tablet Take one 90 tablet 0 tablet by 1 mouth twice daily for 27 days. Take with food. Take twice daily through 07/06, then decrease back to one tablet daily starting on 07/07 Active Problems Problem Noted Date Impaired mobility and ADLs 06/01/2021 Impaired functional mobility, balance, gait, and endu lenin 06/01/2021 Thrombocytopenia 05/25/2021 Hip fracture 05/23/2021 Trauma 05/23/2021 COVID-19 virus infection 02/02/2021 Left foot drop [...] Dr. Byrd CAD (coronary artery disease) 07/27/2016 ABLA (acute blood loss anemia) 03/26/2016 CVA (cerebral vascular accident) 03/26/2016 Class 2 severe obesity due to excess calories with se rious comorbidity and 03/17/2016 body mass index (BMI) of 37.0 to 37.9 i n adult Anxiety 03/17/2016 CKD (chronic kidney disease) stage [...] 04-25-16 First heme clinic visit. Pt sa w Dr. Gonzalez in consultation during hospital stay last [...] Acute respiratory failure with hypoxia 03/26/2016 03/31/2016 Postoperative anemia due to acute blood loss 03/24/2016 07/23/2018 Acute systolic heart failure 03/21/2016 6 Coronary artery disease involving redding coronary art ori without angina 03/17/2016 03/31/2016 [...] troponin elevat ion (0.36) s/p lap-constance in [place] Encounters Care Team Description Date Type Specialty Bryson Nicolas MD Medication Refill 07/19/2021 Refill Cardiology Ayad Ontiveros MD 07/19/2021 Refill Clinical Pharmacolo gy Raman Wu MD 07/07/2021 Hospital Radiology Encounter Raman Wu MD S/P ORIF (open reduction internal fixati on) fracture (Primary Dx) 07/07/2021 Office Visit Orthopedic Surgery 07/07/2021 Travel Raman Wu MD S/P ORIF (open reduction internal fixati on) fracture (Primary Dx) 07/05/2021 Orders Only Orthopedic Surgery Alma Rosa Jaramillo PA-C Trauma 06/09/2021 Office Visit Orthopedic Surgery 06/09/2021 Travel Rose Murray MD Hip fracture (HCC) 06/01/2021 Hospital Rehabilitation - Encounter 06/07/2021 David Olivarez MD 05/25/2021 Hospital Radiology Encounter Raman Wu MD OPEN TREATMENT WITH INTERNAL FIXATION OF PERIPROSTHETIC LEFT FEMUR FRACTURE 05/25/2021 Surgery Naseem Wakefield MD Prescott, Lori A, CRNA 05/25/2021 Anesthesia Event 05/25/2021 Travel Geovanny Dupont MD 05/23/2021 Hospital Radiology Encounter Geovanny Dupont MD Trauma 05/23/2021 [facility] Family Medicine - Encounter 06/01/2021 05/23/2021 Travel Bryson Nicolas MD Medication Refill 05/15/2021 Refill Cardiology from Last 3 Months Immunizations Name Administration Dates Next Due COVID-19 (MODERNA), mRNA 01/08/2021, 12/11/2020 vacc, 100 mcg/0.5 mL (PF) Flu Vaccine =>65 YO 07/09/2019 High-Dose (PF) Pneumococcal 06/14/2015 Vaccine(13-[facility]/immunocompromised adult) Surgical History Surgery Date Site/Laterality Comments HX HEART CATHETERIZATION 03/09/2016 - 04/07/2016 CHOLECYSTECTOMY CO postoperative CORONARY ARTERY BYPASS 03/22/2016 N/A BYPASS GRAFT CORONARY ARTERY, SIOBHAN, EVH performed GRAFT by Demarco Byrd MD at OR Medical devices from this surgery are i n the Implants section. HIP SURGERY 09/09/2016 Left L hip/ Pelvis - fracture repair KNEE ARTHROPLASTY 08/28/2019 Knee/Left ARTHROPLASTY TOTAL KNEE performed by Uday Sánchez MD at Main OR/Periop Medical devices from this surgery are i n the Implants section. KNEE SURGERY KNEE REPLACEMENT KNEE JOINT MANIPULATION 12/18/2019 Knee/Left MANIPU LATION KNEE JOINT UNDER GENERAL ANESTHESIA performed by Uday Sánchez MD at [facility] OR CARDIAC SURGERY FEMUR FRACTURE SURGERY 05/25/2021 Leg Upper/Left OPEN TR EATMENT WITH INTERNAL FIXATION OF PERIPROSTHETIC LEFT FEMUR FRACTURE perf ormed by Raman Wu MD at [facility] OR Medical devices from this surgery are i n the Implants section. Medical History Medical History Date Comments Hyperlipidemia 03/16/2016 Essential hypertension 03/16/2016 History of non-ST elevation myocardial 03/14/2016 infarction (NSTEMI) Hypothyroid 03/16/2016 Morbid obesity with BMI of 40.0-44.9, 03/17/2016 adult (HCC) Anxiety 03/17/2016 Arthritis Chest pain Gout Neuropathy Patient denies Thyroid disease Back pain Osteoarthritis Numbness and tingling in left hand Due to CVA Arrhythmia Patient denies Coronary artery disease Heart attack ([facility]) 03/14/2016 Stroke ([facility]) 03/22/2016 RUE weakness Type II diabetes mellitus ([facility]) 03/16/2016 Manage d with metformin & glimepiride [...] or suspected to have Coronavirus / COVID-19? Last Filed Vital Signs Reading Time Taken Comments Vital Sign 131/47 06/07/2021 4:27 AM CDT Blood Pressure 79 06/07/2021 4:27 AM CDT Pulse 36.9 C (98.4 F) 06/07/2021 4:27 AM CDT Temperature 20 12/05/2019 1:17 PM SOCIAL MEDIA INTERN Respiratory Rate 96% 06/07/2021 4:27 AM CDT Oxygen Saturation - - Inhaled Oxygen Concentration 92.3 kg (203 lb 7.8 oz) 06/07/2021 4:27 AM CDT Weight 154.9 cm (5' 1") 06/01/2021 1:21 PM CDT Height 38.45 06/01/2021 1:21 PM CDT Body Mass Index Plan of Treatment Health Maintenance Due Date Last Done Comments MEDICARE ANNUAL WELLNESS 1950 VISIT DILATED EYE EXAM 1967 DTAP/TDAP VACCINES (1 - 1967 Tdap) FOOT EXAM 1967 HEPATITIS C SCREENING 1967 MICROALBUMIN 1967 PHYSICAL (COMPREHENSIVE) 1967 EXAM BREAST CANCER SCREENING 1989 COLORECTAL CANCER 1999 SCREENING SHINGLES RECOMBINANT 1999 VACCINE (1 of 2) OSTEOPOROSIS 2014 SCREENING/MONITORING PNEUMONIA (PPSV23) 08/09/2015 06/14/2015 VACCINE (1 of 2 - PPSV23) INFLUENZA VACCINE 05/09/2021 07/09/2019 HBA1C 11/24/2021 05/24/2021, 07/21/2020, 07/09/2019, Additional history exists COVID-19 VACCINE Completed 01/08/2021, 12/11/2020 Goals Goal Patient Associated Recent Progress Patient-Stat Aut hor Goal Type Problems ed? get better and get my knee General Yes Cla rk, Berenice, then my back RN Resume normal activities Hospital On track (05/24/2021 Yes [place], 2:25 PM CDT) Rosi, RN Implants Device Identifier Shelf Expiration Date Model / Serial / L ot Implanted Type Area Manufactur 10/05/2016 [facility]-3038 / [id number] / [id number] Device Sealing 3.8mm Heartstring DATASCOPE: Iii Proximal Delivery - [id number] CARDIAC Implanted: Qty: 1 on 03/22/2016 by Demarco Wright MD at [facility] 01/06/2023 [id number] / NA / [id number] Insert Tibial 6 8mm Knee Posterior Left: Knee DE PUY Stabilize Fix Bearing - Sna SYNTHES [employer] Implanted: Qty: 1 on 08/28/2019 by Uday Sánchez MD at [facility] [id number] / NA / NA Pin Threaded Headless 46mm - Sna Left: Knee ORTH ALIGN Implanted: Qty: 1 on 08/28/2019 by Uday Bates MD at [facility] [id number] / NA / NA Pin Threaded Headless 65mm - Sna Left: Knee ORTH ALIGN Implanted: Qty: 1 on 08/28/2019 by Uday Bates MD at [facility] 12/06/2020 [id number] / NA / [id number] Cement Bone Smartset Gentamicin Left: Knee DEPUY 40gm Medium Viscosity - Sna SYNTHES CO Implanted: Qty: 1 on 08/28/2019 by Uday Sánchez MD at [facility] 01/06/2021 [id number] / NA / [id number] Cement Bone Smartset Gentamicin Left: Knee DEPUY 40gm Medium Viscosity - Sna SYNTHES CO Implanted: Qty: 1 on 08/28/2019 by Uday Sánchez MD at [facility] 01/06/2021 [id number] / NA / [id number] Cement Bone Smartset Gentamicin Left: Knee DEPUY 40gm Medium Viscosity - Sna SYNTHES CO Implanted: Qty: 1 on 08/28/2019 by Uday Sánchez MD at [facility] 01/06/2021 [id number] / NA / [id number] Cement Bone Smartset Gentamicin Left: Knee DEPUY 40gm Medium Viscosity - Sna SYNTHES CO Implanted: Qty: 1 on 08/28/2019 by Uday Sánchez MD at [facility] 03/08/2029 [id number] / NA / [id number] Component Femoral 6 Narrow Knee Left: Knee DEPUY Left Posterior Stabilize - Sna SYNTHES CO Implanted: Qty: 1 on 08/28/2019 by Uday Sánchez MD at [facility] 04/07/2028 [id number] / NA / [id number] Baseplate Tibial Attune 4 Revision Left: Knee DE PUY Cemented Fix Bearing - Sna SYNTHES CO Implanted: Qty: 1 on 08/28/2019 by Uday Sánchez MD at [facility] 06/08/2029 [id number] / NA / [id number] Stem Femoral 50mm 14mm Cemented Left: Knee DEPUY Revision Attune Knee Sterile - Sna SYNTHES CO Implanted: Qty: 1 on 08/28/2019 by Uday Sánchez MD at [facility] 03/08/2023 [id number] / NA / [id number] Component Patellar 32mm Medialize Left: Knee DEP UY Dome Attune - Sna SYNTHES CO Implanted: Qty: 1 on 08/28/2019 by Uday Sánchez MD at [facility] 08/08/2028 298.803S / [id number] / [id number] Pin Positioning 4.5mm Lcp Stainless Left: Femur D EPUY Steel Cerclage Threaded - [id number] SYNTHES CO Implanted: Qty: 1 on 05/25/2021 by Raman Wu MD at [facility] 298.801.01S / [id number] / [id number] Cable Orthopedic Stainless Steel Left: Femur DEPU Y 1.7mm 750mm Long Bone Crimp - SYNTHES CO [id number] Implanted: Qty: 1 on 05/25/2021 by Raman Wu MD at [facility] 02/05/2026 298.801.01S / [id number] / [id number] Cable Orthopedic Stainless Steel Left: Femur DEPU Y 1.7mm 750mm Long Bone Crimp - SYNTHES CO [id number] Implanted: Qty: 1 on 05/25/2021 by Raman Wu MD at [facility] 242.114 / 242.114 / 242.114 4.5mm Lcp Proximal Femur Plate Left: Femur SYNTHE S Implanted: Qty: 1 on 05/25/2021 by SYNTHES Raman Wu MD at [facility] 10/08/2025 298.801.01S / [id number] / [id number] Cable Orthopedic Stainless Steel Left: Femur DEPU Y 1.7mm 750mm Long Bone Crimp - SYNTHES CO [id number] Implanted: Qty: 1 on 05/25/2021 by Raman Wu MD at [facility] 212.203 / 212.203 / 212.203 Screw Bone 5mm 18mm Lcp Stainless Left: Femur DEP UY Steel Full Thread T25 - [id number] SYNTHES CO Implanted: Qty: 1 on 05/25/2021 by Raman Wu MD at [facility] 212.209 / 212.209 / 212.209 Screw Bone 5mm 30mm Lcp Stainless Left: Femur DEP UY Steel T25 Full Thread Cone - SYNTHES CO [id number] Implanted: Qty: 1 on 05/25/2021 by Raman Wu MD at [facility] 02.207.050 / 02.207.050 / 02.207.050 7.3 Cannulated Locking Screw Left: Femur SYNTHES Implanted: Qty: 2 on 05/25/2021 by SYNTHES Raman Wu MD at [facility] 212.214 / 212.214 / 212.214 Screw Bone 5mm 40mm Lcp Stainless Left: Femur DEP UY Steel Full Thread T25 - [id number] SYNTHES CO Implanted: Qty: 1 on 05/25/2021 by Raman Wu MD at [facility] 214.840 / 214.840 / 214.840 Screw Bone 4.5mm 40mm Lcp Stainless Left: Femur D EPUY Steel Standard Cortical - S214.840 SYNTHES CO Implanted: Qty: 3 on 05/25/2021 by Raman Wu MD at [facility] 212.104 / 212.104 / 212.104 Screw Bone 3.5mm 16mm Lcp Stainless Left: Femur D EPUY Steel Full Thread Pelvis - S212.104 SYNTHES CO Implanted: Qty: 1 on 05/25/2021 by Raman Wu MD at [facility] 212.106 / 212.106 / 212.106 Screw Bone 3.5mm 20mm Lcp Stainless Left: Femur D EPUY Steel Tibia Proximal - S212.106 SYNTHES CO Implanted: Qty: 3 on 05/25/2021 by Raman Wu MD at [facility] 02.120.603 / 02.120.603 / 02.120.603 3.5mm Locking Attachment Plates, Left: Femur SYNT HES For 4.5mm Lcp Proximal Femur Plates SYNTHES Implanted: Qty: 1 on 05/25/2021 by [facility] Raman Wu MD at [facility] 02.120.606 / 02.120.606 / 02.120.606 Connecting Screw, For Locking Left: Femur SYNTHES Attachment Plate SYNTHES Implanted: Qty: 1 on 05/25/2021 by [facility] Raman Wu MD at [facility] Procedures Comments Procedure Name Priority Date/Time Associated Diag nosis FEMUR 2 VIEWS LEFT Routine 07/07/2021 S/P ORIF (o pen reduction 2:36 PM CDT internal fixation) fracture POC GLUCOSE 06/07/2021 8:15 AM CDT HC BASIC METABOLIC PANEL Routine 06/07/2021 (CH7CT) 8:00 AM CDT HC CBC AUTOMATED (HPCT) Routine 06/07/2021 8:00 AM CDT POC GLUCOSE 06/06/2021 9:56 PM CDT POC GLUCOSE 06/06/2021 4:59 PM CDT POC GLUCOSE 06/06/2021 11:41 AM CDT HC BASIC METABOLIC PANEL Routine 06/06/2021 (CH7CT) 9:43 AM CDT HC CBC AUTOMATED (HPCT) Routine 06/06/2021 9:43 AM CDT POC GLUCOSE 06/06/2021 7:17 AM CDT POC GLUCOSE 06/05/2021 9:43 PM CDT POC GLUCOSE 06/05/2021 4:48 PM CDT POC GLUCOSE 06/05/2021 11:35 AM CDT HC BASIC METABOLIC PANEL Routine 06/05/2021 (CH7CT) 8:06 AM CDT HC CBC AUTOMATED (HPCT) Routine 06/05/2021 8:06 AM CDT POC GLUCOSE 06/05/2021 7:17 AM CDT POC GLUCOSE 06/04/2021 10:36 PM CDT POC GLUCOSE 06/04/2021 4:55 PM CDT UA REFLEX LABEL Routine 06/04/2021 12:00 PM CDT URINALYSIS MICROSCOPIC Routine 06/04/2021 REFLEX TO CULTURE 12:00 PM CDT HC URINALYSIS UAR Routine 06/04/2021 12:00 PM CDT CULTURE-URINE 06/04/2021 W/SENSITIVITY 12:00 PM CDT POC GLUCOSE 06/04/2021 11:57 AM CDT CHEST SINGLE VIEW STAT 06/04/2021 11:13 AM CDT HC BASIC METABOLIC PANEL Routine 06/04/2021 (CH7CT) 9:00 AM CDT HC CBC AUTOMATED (HPCT) Routine 06/04/2021 9:00 AM CDT POC GLUCOSE 06/04/2021 7:41 AM CDT POC GLUCOSE 06/03/2021 10:23 PM CDT POC GLUCOSE 06/03/2021 4:51 PM CDT POC GLUCOSE 06/03/2021 11:42 AM CDT POC GLUCOSE 06/03/2021 9:40 AM CDT HC BASIC METABOLIC PANEL Routine 06/03/2021 (CH7CT) 8:48 AM CDT HC CBC AUTOMATED (HPCT) Routine 06/03/2021 8:48 AM CDT POC GLUCOSE 06/03/2021 7:13 AM CDT POC GLUCOSE 06/02/2021 9:52 PM CDT POC GLUCOSE 06/02/2021 5:11 PM CDT POC GLUCOSE 06/02/2021 12:10 PM CDT HC 25-OH VITAMIN D Routine 06/02/2021 9:58 AM CDT HC BASIC METABOLIC PANEL Routine 06/02/2021 (CH7CT) 9:58 AM CDT HC CBC AUTOMATED (HPCT) Routine 06/02/2021 9:58 AM CDT POC GLUCOSE 06/02/2021 7:20 AM CDT POC GLUCOSE 06/01/2021 9:35 PM CDT POC GLUCOSE 06/01/2021 4:37 PM CDT POC GLUCOSE 06/01/2021 12:07 PM CDT POC GLUCOSE 06/01/2021 7:39 AM CDT POC GLUCOSE 06/01/2021 3:09 AM CDT POC GLUCOSE 05/31/2021 8:58 PM CDT POC GLUCOSE 05/31/2021 4:25 PM CDT POC GLUCOSE 05/31/2021 11:48 AM CDT POC GLUCOSE 05/31/2021 8:02 AM CDT POC GLUCOSE 05/30/2021 9:15 PM CDT POC GLUCOSE 05/30/2021 4:50 PM CDT POC GLUCOSE 05/30/2021 11:32 AM CDT POC GLUCOSE 05/30/2021 9:07 AM CDT HC TSH SCREEN Routine 05/30/2021 4:43 AM CDT POC GLUCOSE 05/30/2021 3:16 AM CDT POC GLUCOSE 05/29/2021 9:48 PM CDT POC GLUCOSE 05/29/2021 5:19 PM CDT POC GLUCOSE 05/29/2021 11:35 AM CDT HC BASIC METABOLIC PANEL Routine 05/29/2021 10:55 AM CDT HC CBC,AUTOMATED Routine 05/29/2021 10:55 AM CDT POC GLUCOSE 05/29/2021 9:33 AM CDT POC GLUCOSE 05/29/2021 8:27 AM CDT POC GLUCOSE 05/29/2021 3:08 AM CDT POC GLUCOSE 05/28/2021 9:57 PM CDT POC GLUCOSE 05/28/2021 5:55 PM CDT HC HEMOGLOBIN 05/28/2021 5:30 PM CDT CONSULT IV THERAPY TEAM Routine 05/28/2021 5:08 PM CDT HC HEMOGLOBIN Routine 05/28/2021 5:00 PM CDT TRANSFUSE RBC'S Routine 05/28/2021 4:39 PM CDT POC GLUCOSE 05/28/2021 11:45 AM CDT HC ABO GROUP Routine 05/28/2021 11:10 AM CDT CONSULT IV THERAPY TEAM STAT 05/28/2021 10:40 AM CDT POC GLUCOSE 05/28/2021 7:25 AM CDT HC PHOSPHOROUS, SERUM Routine 05/28/2021 5:44 AM CDT HC MAGNESIUM Routine 05/28/2021 5:44 AM CDT HC COMPREHENSIVE Routine 05/28/2021 METABOLIC PANEL 5:44 AM CDT HC CBC,AUTOMATED Routine 05/28/2021 5:44 AM CDT POC GLUCOSE 05/28/2021 3:04 AM CDT POC GLUCOSE 05/27/2021 8:57 PM CDT POC GLUCOSE 05/27/2021 6:44 PM CDT POC GLUCOSE 05/27/2021 4:36 PM CDT CBC Routine 05/27/2021 2:25 PM CDT TRANSFUSE RBC'S Routine 05/27/2021 12:52 PM CDT POC GLUCOSE 05/27/2021 12:33 PM CDT POC GLUCOSE 05/27/2021 8:29 AM CDT HC IRON BINDING CAPACITY Add on 05/27/2021 + %SAT 4:17 AM CDT HC PHOSPHOROUS, SERUM Routine 05/27/2021 4:17 AM CDT HC MAGNESIUM Routine 05/27/2021 4:17 AM CDT HC COMPREHENSIVE Routine 05/27/2021 METABOLIC PANEL 4:17 AM CDT HC CBC,AUTOMATED Routine 05/27/2021 4:17 AM CDT POC GLUCOSE 05/27/2021 2:21 AM CDT POC GLUCOSE 05/26/2021 9:25 PM CDT POC GLUCOSE 05/26/2021 5:31 PM CDT FOOT 2 VIEW BILATERAL Routine 05/26/2021 1:19 PM CDT ANKLE MIN 3 VIEWS RIGHT Routine 05/26/2021 12:59 PM CDT POC GLUCOSE 05/26/2021 11:59 AM CDT POC GLUCOSE 05/26/2021 7:27 AM CDT HC PHOSPHOROUS, SERUM Routine 05/26/2021 5:58 AM CDT HC MAGNESIUM Routine 05/26/2021 5:58 AM CDT HC COMPREHENSIVE Routine 05/26/2021 METABOLIC PANEL 5:58 AM CDT HC CBC,AUTOMATED Routine 05/26/2021 5:58 AM CDT POC GLUCOSE 05/26/2021 3:27 AM CDT POC GLUCOSE 05/25/2021 10:37 PM CDT POC GLUCOSE 05/25/2021 9:07 PM CDT POC GLUCOSE 05/25/2021 5:45 PM CDT ANESTHESIA PERIPHERAL Routine 05/25/2021 NERVE BLOCK 4:30 PM CDT POC GLUCOSE 05/25/2021 2:55 PM CDT FLUORO MOBILE IN OR Routine 05/25/2021 1:21 PM CDT OPEN TREATMENT WITH 05/25/2021 Closed fracture o f left INTERNAL FIXATION/ 10:24 AM CDT hip, initial encou nter PROSTHETIC REPLACEMENT (HCC) PROXIMAL END/ NECK FEMORAL FRACTURE POC GLUCOSE 05/25/2021 10:17 AM CDT POC GLUCOSE 05/25/2021 7:55 AM CDT HC PHOSPHOROUS, SERUM Routine 05/25/2021 4:40 AM CDT HC MAGNESIUM Routine 05/25/2021 4:40 AM CDT HC COMPREHENSIVE Routine 05/25/2021 METABOLIC PANEL 4:40 AM CDT HC CBC,AUTOMATED Routine 05/25/2021 4:40 AM CDT POC GLUCOSE 05/25/2021 2:42 AM CDT POC GLUCOSE 05/24/2021 9:24 PM CDT POC GLUCOSE 05/24/2021 5:01 PM CDT POC GLUCOSE 05/24/2021 11:54 AM CDT HC ABO GROUP ALEXANDRU 05/24/2021 10:21 AM CDT POC GLUCOSE 05/24/2021 8:23 AM CDT HC HEMOGLOBIN A1C Routine 05/24/2021 5:51 AM CDT HC PHOSPHOROUS, SERUM Routine 05/24/2021 5:51 AM CDT HC MAGNESIUM Routine 05/24/2021 5:51 AM CDT HC COMPREHENSIVE Routine 05/24/2021 METABOLIC PANEL 5:51 AM CDT HC CBC,AUTOMATED Routine 05/24/2021 5:51 AM CDT POC GLUCOSE 05/24/2021 3:11 AM CDT UA REFLEX LABEL Routine 05/23/2021 10:45 PM CDT URINALYSIS MICROSCOPIC Routine 05/23/2021 REFLEX TO CULTURE 10:45 PM CDT HC URINALYSIS UAR Routine 05/23/2021 10:[address] LOWER EXTREM WO CONT STAT 05/23/2021 LEFT 10:[address] ABD/PELV WO CONTRAST STAT 05/23/2021 10:22 PM CDT POC GLUCOSE 05/23/2021 9:04 PM CDT HC PHOSPHOROUS, SERUM STAT 05/23/2021 8:45 PM CDT HC MAGNESIUM STAT 05/23/2021 8:45 PM CDT HC COMPREHENSIVE STAT 05/23/2021 METABOLIC PANEL 8:45 PM CDT HC CBC,AUTOMATED STAT 05/23/2021 8:45 PM CDT TELEMETRY STRIPS-SCAN 05/23/2021 12:00 AM CDT from Last 3 Months Results * FEMUR 2 VIEWS LEFT (07/07/2021 [...] Code P curry Number [facility]ULTS * POC GLUCOSE (06/07/2021 8:15 AM CDT) Only the most recent of 71 results within the time period is included. Glucose, POC 99 70 - 100 MG/DL [facility] Specimen Performing Organization Address City/State/ZIP Code P curry Number [facility] [address] [place] [address] * BASIC METABOLIC PANEL CELLULAR THERAPEUTICS (06/07/2021 8:00 AM CDT) Only the most recent of 6 results within the time period is included. Sodium 139 137 - 147 MMOL/L [facility] Potassium 3.7 3.5 - 5.1 MMOL/L [facility] Chloride 103 98 - 110 MMOL/L [facility] CO2 29 21 - 30 MMOL/L [facility] Anion Gap 7 3 - 12 [facility] Glucose 118 (H) 70 - 100 MG/DL [facility] Blood Urea 15 7 - 25 MG/DL [facility] Nitrogen Creatinine 0.98 0.4 - 1.00 MG/DL [facility] Calcium 8.9 8.5 - 10.6 MG/DL [facility] eGFR Non 56 (L) >60 mL/min [facility] Comment: [place] The eGFR is not validated f or use in drug dosing adjustments. Continue to use estimated creatinine clearance per dosing reference text. Please contact the Clinical Pharmacist for questions. eGFR >60 >60 mL/min [facility] [place] Comment: The eGFR is not validated for use in drug dosing adjustments. Continue to use estimated creatinine clearance per dosing reference text. Please contact the Clinical Pharmacist for questions. Specimen Blood Performing Organization Address City/State/ZIP Code P curry Number [facility] [address] [place] [address] * CBC CELLULAR THERAPEUTICS (06/07/2021 8:00 AM CDT) Only the most recent of 6 results within the time period is included. Pathologist [facility] White Blood 9.5 4.5 - 11.0 [facility] Cells RBC 2.98 (L) 4.0 - 5.0 M/UL [facility] Hemoglobin 9.4 (L) 12.0 - 15.0 GM/DL [facility] Hematocrit 28.6 (L) 36 - 45 % [facility] MCV 96.0 80 - 100 FL [facility] MCH 31.5 26 - 34 PG [facility] MCHC 32.8 32.0 - 36.0 G/DL [facility] RDW 19.9 (H) 11 - 15 % [facility] Platelet Count 265 150 - 400 [facility] MPV 7.9 7 - 11 [facility] Specimen Blood Performing Organization Address City/[facility] Code P curry Number [facility] [address] [place] [address] * UA REFLEX LABEL (06/04/2021 12:00 PM CDT) Only the most recent of 2 results within the time period is included. Pathologist [facility] UA Reflex Criteria for reflex to culture [facility] Culture are WBC>10, Positive Nitrit e, and/or >=+1 leukocytes. If quantity is not sufficient, an addendum will follow. Specimen Urine Performing Organization Address City/[facility]/ZIP Code P curry Number [facility] [address] [place] [address] * URINALYSIS MICROSCOPIC REFLEX TO CULTURE (06/04/2021 12:00 PM CDT) Only the most recent of 2 results within the time period is included. WBCs,UA 20-50 0 - 2 /HPF MAIN LAB RBCs,UA 2-10 0 - 3 /HPF [facility] Comment,UA Criteria for reflex to culture [facility] are WBC>10, Positive Nitrite, and/or >=+1 leukocytes. If quantity is not sufficient, an addendum will follow. MucousUA TRACE [facility] Squamous 0-2 0 - 5 [facility] Epithelial Cells Specimen Urine Performing Organization Address City/[facility]/ZIP [facility] P curry Number [facility] [address] [place] [address] * URINALYSIS DIPSTICK REFLEX TO CULTURE (06/04/2021 12:00 PM CDT) Only the most recent of 2 results within the time period is included. Color,UA ABELARDO [facility] Turbidity,UA 1+ (A) CLEAR-CLEAR [facility] Specific 1.026 1.003 - 1.035 [facility] [place]-Urine pH,UA 5.0 5.0 - 8.0 [facility] Protein,UA 1+ (A) NEG-NEG [facility] Glucose,UA NEG NEG-NEG [facility] Ketones,UA NEG NEG-NEG [facility] Bilirubin,UA NEG NEG-NEG [facility] Blood,UA NEG NEG-NEG [facility] Urobilinogen,UA INCREASED (A) NORM-NORMAL [facility] Nitrite,UA NEG NEG-NEG [facility] Leukocytes,UA 2+ (A) NEG-NEG [facility] Urine Ascorbic NEG NEG-NEG [facility] Acid, UA Specimen Urine Performing Organization Address [facility] P curry Number [facility] [address] [place] [address] * CULTURE-URINE W/SENSITIVITY (06/04/2021 12:00 PM CDT) Battery Name URINE CULTURE [facility] Report Status FINAL 06/05/2021 [facility] Specimen URINE MIDSTREAM [facility] Description Special NONE [facility] Requests Culture <100,000 CFU/ml [facility] ESCHERICHIA COLI (A) Specimen Urine - Midstream Antibiotic Method Susceptibility Organism Amikacin RON (MCG/ML), INTERPRETATION, PHX <=8: Susceptible Escherichia coli Ampicillin/Sulbactam RON (MCG/ML), INTERPRETATION, PHX 4/2: Susceptible Escherichia coli Ampicillin RON (MCG/ML), INTERPRETATION, PHX <=4: Susceptible Escherichia coli Cefepime RON (MCG/ML), INTERPRETATION, PHX <=1: Susceptible Escherichia coli Ceftriaxone RON (MCG/ML), INTERPRETATION, PHX <=1: Susceptible Escherichia coli Gentamicin RON (MCG/ML), INTERPRETATION, PHX <=2: Susceptible Escherichia coli Levofloxacin RON (MCG/ML), INTERPRETATION, PHX <=0.5: Susceptible Escherichia coli Nitrofurantoin RON (MCG/ML), INTERPRETATION, PHX <=16: Susceptible Escherichia coli Piperacil/Tazobactam RON (MCG/ML), INTERPRETATION, PHX <=2/4: Susceptible Escherichia coli Trimethsulfa RON (MCG/ML), INTERPRETATION, PHX <=0.5/9.5: Susceptible Escherichia coli Oral Cephalosporins RON (MCG/ML), INTERPRETATION, PHX 2: Susceptible Escherichia coli Performing Organization Address City/State/ZIP Code P curry Number MAIN LAB [address] [place] [address] * CHEST SINGLE VIEW (06/04/2021 11:13 AM CDT) Specimen Impressions Performed At No acute abnormality. [facility] RESULTS By my electronic signature, I attest th at I have personally reviewed the images for this examination and formulated the interpretations and opinions expressed in this report Finalized by QUINTIN BASHIR M.D. on 06/04 1:49 PM. Dictated by Romeo Payan MD on 06/04/2021 1:07 PM. Narrative Performed At CHEST SINGLE VIEW [facility] RESULTS INDICATION: Leukocytosis COMPARISON STUDY: CT chest February 02. FINDINGS: Skeletal and soft tissue: Prior sternot abilio. Lungs/Pleura: Lung volumes normal. No f ocal consolidation. No pleural effusion pneumothorax. Heart and Mediastinum: Heart size is wi thin normal limits. Procedure Note Interface, Radiant Results - 06/04/2021 1:52 PM CDT CHEST SINGLE VIEW INDICATION: Leukocytosis COMPARISON STUDY: CT chest February 02, 2021. FINDINGS: Skeletal and soft tissue: Prior sternotomy. Lungs/Pleura: Lung volumes normal. No focal consolidation. No pleural effusion pneumothorax. Heart and Mediastinum: Heart size is within normal limits. IMPRESSION No acute abnormality. By my electronic signature, I attest that I have personally reviewed the images for this examination and formulated the interpretations and opinions expressed in this report Finalized by QUINTIN BASHIR M.D. on 06/04/2021 1:49 PM. Dictated by Romeo Payan MD on 06/04/2021 1:07 PM. Performing Organization Address City/[facility]/ZIP Code P curry Number KU RAD RESULTS * 25-OH VITAMIN D (D2 + D3) (06/02/2021 9:58 AM CDT) Vitamin 41.3 30 - 80 NG/ML [facility] D(25-OH)Total Specimen Blood Performing Organization Address [facility] P curry Number [facility] [address] [place] [address] * TSH WITH FREE T4 REFLEX (05/30/2021 4:43 AM CDT) Pathologist [facility] TSH 0.89 0.35 - 5.00 MCU/ML [facility] Specimen Blood Performing Organization Address [facility] P curry Number [facility] [address] [place] [address] * CBC (05/29/2021 10:55 AM CDT) Only the most recent of 8 results within the time period is included. White Blood 10.4 4.5 - 11.0 K/UL [facility] Cells RBC 2.63 (L) 4.0 - 5.0 M/UL [facility] Hemoglobin 8.1 (L) 12.0 - 15.0 GM/DL [facility] Hematocrit 24.9 (L) 36 - 45 % [facility] MCV 94.7 80 - 100 FL [facility] MCH 30.8 26 - 34 PG [facility] MCHC 32.5 32.0 - 36.0 G/DL [facility] RDW 19.3 (H) 11 - 15 % [facility] Platelet Count 104 (L) 150 - 400 K/UL [facility] MPV 9.0 7 - 11 FL [facility] Specimen Blood Performing Organization Address [facility] P curry Number [facility] [address] [place] [id number] * BASIC METABOLIC PANEL (05/29/2021 10:55 AM CDT) Pathologist [facility] Sodium 137 137 - 147 MMOL/L [facility] Potassium 4.4 3.5 - 5.1 MMOL/L [facility] Chloride 103 98 - 110 MMOL/L [facility] CO2 30 21 - 30 MMOL/L [facility] Anion Gap 4 3 - 12 [facility] Glucose 254 (H) 70 - 100 MG/DL [facility] Blood Urea 11 7 - 25 MG/DL [facility] Nitrogen Creatinine 0.93 0.4 - 1.00 MG/DL [facility] Calcium 8.0 (L) 8.5 - 10.6 MG/DL [facility] eGFR Non 59 (L) >60 mL/min [facility] Comment: [place] The eGFR is not validated f or use in drug dosing adjustments. Continue to use estimated creatinine clearance per dosing reference text. Please contact the Clinical Pharmacist for questions. eGFR >60 >60 mL/min [facility] [place] Comment: The eGFR is not validated for use in drug dosing adjustments. Continue to use estimated creatinine clearance per dosing reference text. Please contact the Clinical Pharmacist for questions. Specimen Blood Performing Organization Address City/[facility]/ZIP Code P curry Number [facility] [address] [place] [address] * HEMOGLOBIN & HEMATOCRIT (05/28/2021 5:30 PM CDT) Only the most recent of 2 results within the time period is included. Hemoglobin 8.0 (L) 12.0 - 15.0 GM/DL MAIN LAB Hematocrit 24.3 (L) 36 - 45 % [facility] Specimen Performing Organization Address City/[facility] P curry Number [facility] [address] [place] [address] * TRANSFUSE RBC'S (05/28/2021 4:39 PM CDT) Only the most recent of 2 results within the time period is included. Specimen Blood * TYPE & CROSSMATCH (05/28/2021 11:10 AM CDT) Only the most recent of 2 results within the time period is included. Units Ordered 1 [facility] Crossmatch 05/31/2021,2359 [facility] Expires Record Check FOUND [facility] ABO/RH(D) A POS [facility] Antibody Screen NEG [facility] Electronic YES [facility] Crossmatch Unit Number [id number] [facility] Blood Component RBC,ADSOL,LEUKO REDUCED [facility] Type Unit Division 00 MAIN LAB Status OF Unit TRANSFUSED [facility] ISSUE DATE TIME [facility] PRODUCT CODE [id number] [facility] BLOOD TYPE A POS [facility] CODING STATUS 6200 [facility] BLOOD [id number] [facility] EXPIRATION DATE Transfusion OK TO TRANSFUSE [facility] Status Crossmatch COMPATIBLE,ELECTRONIC [facility] Result Specimen Midstream Performing Organization Address City/State/ZIP Code P curry Number [facility] [address] [place] [address] * PHOSPHORUS (05/28/2021 5:44 AM CDT) Only the most recent of 6 results within the time period is included. Phosphorus 2.1 2.0 - 4.5 MG/DL [facility] Specimen Blood Performing Organization Address City/[facility]/ZIP Code P curry Number [facility] [address] [place] [address] * MAGNESIUM (05/28/2021 5:44 AM CDT) Only the most recent of 6 results within the time period is included. Magnesium 2.1 1.6 - 2.6 mg/dL [facility] Specimen Blood Performing Organization Address City/[facility]/ZIP Code P curry Number [facility] [address] [place] [address] * COMPREHENSIVE METABOLIC PANEL (05/28/2021 5:44 AM CDT) Only the most recent of 6 results within the time period is included. Sodium 137 137 - 147 MMOL/L [facility] Potassium 4.3 3.5 - 5.1 MMOL/L [facility] Chloride 102 98 - 110 MMOL/L [facility] Glucose 186 (H) 70 - 100 MG/DL [facility] Blood Urea 19 7 - 25 MG/DL [facility] Nitrogen Creatinine 1.01 (H) 0.4 - 1.00 MG/DL [facility] Calcium 8.0 (L) 8.5 - 10.6 MG/DL [facility] Total Protein 4.9 (L) 6.0 - 8.0 G/DL [facility] Total Bilirubin 0.7 0.3 - 1.2 MG/DL [facility] Albumin 3.0 (L) 3.5 - 5.0 G/DL [facility] Alk Phosphatase 46 25 - 110 U/L [facility] AST (SGOT) 23 7 - 40 U/L [facility] CO2 32 (H) 21 - 30 MMOL/L [facility] ALT (SGPT) 9 7 - 56 U/L [facility] Anion Gap 3 3 - 12 [facility] eGFR Non 54 (L) >60 mL/min [facility] Comment: [place] The eGFR is not validated f or use in drug dosing adjustments. Continue to use estimated creatinine clearance per dosing reference text. Please contact the Clinical Pharmacist for questions. eGFR >60 >60 mL/min [facility] [place] Comment: The eGFR is not validated for use in drug dosing adjustments. Continue to use estimated creatinine clearance per dosing reference text. Please contact the Clinical Pharmacist for questions. Specimen Blood Performing Organization Address City/[facility]/ZIP Code P curry Number [facility] [address] [place] [address] * IRON + BINDING CAPACITY + %SAT+ FERRITIN (05/27/2021 4:17 AM CDT) Iron 55 50 - 160 MCG/DL [facility] Iron 261 (L) 270 - 380 MCG/DL [facility] Binding-TIBC % Saturation 21 (L) 28 - 42 % [facility] Ferritin 411 (H) 10 - 200 NG/ML [facility] Specimen Performing Organization Address City/[facility] Code P curry Number [facility] [address] [place] [address] * FOOT 2 VIEW BILATERAL (05/26/2021 1:19 PM CDT) Specimen Right Impressions Performed At 1. No acute fracture or dislocation. [facility] RESULT S 2. 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 3. There is prominent notching along the lateral aspect of the right second metatarsal head which could represent a n old erosion. Finalized by Jung Aranda M.D. on 2020 2:27 PM. Dictated by Jung Aranda M.D. on 05/26/2021 2:22 PM. Narrative Performed At Exam: FOOT 2 VIEW BILATERAL, ANKLE MIN 3 VIEWS RIGHT [facility] RESULTS CLINICAL INDICATION: 71 years Female. P ain COMPARISON: None. Procedure Note Interface, Radiant Results - 05/26/2021 2:30 PM CDT Exam: FOOT 2 VIEW BILATERAL, ANKLE MIN 3 VIEWS RIGHT CLINICAL INDICATION: 71 years Female. Pain COMPARISON: None. IMPRESSION 1. No acute fracture or dislocation. 2. Mild degenerative arthritis of the f irst IP joint on the right and of the bilateral talonavicular joints. 3. There is prominent notching along th e lateral aspect of the right second metatarsal head which could represent an old erosion. Finalized by Jung Aranda M.D. on 05/26/2021 2:27 PM. Dictated by Jung Aranda M.D. on 05/26/2021 2:22 PM. Performing Organization Address [facility] P curry Number [facility] RESULTS * ANKLE MIN 3 VIEWS RIGHT (05/26/2021 12:59 PM CDT) Specimen Impressions Performed At 1. No acute fracture or dislocation. [facility] RESULT S 2. 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 3. There is prominent notching along the lateral aspect of the right second metatarsal head which could represent a n old erosion. Finalized by Jung Aranda M.D. on 2020 2:27 PM. Dictated by Jung Aranda M.D. on 05/26/2021 2:22 PM. Narrative Performed At Exam: FOOT 2 VIEW BILATERAL, ANKLE MIN 3 VIEWS RIGHT [facility] RESULTS CLINICAL INDICATION: 71 years Female. P ain COMPARISON: None. Procedure Note Interface, Radiant Results - 05/26/2021 2:30 PM CDT Exam: FOOT 2 VIEW BILATERAL, ANKLE MIN 3 VIEWS RIGHT CLINICAL INDICATION: 71 years Female. Pain COMPARISON: None. IMPRESSION 1. No acute fracture or dislocation. 2. Mild degenerative arthritis of the f irst IP joint on the right and of the bilateral talonavicular joints. 3. There is prominent notching along th e lateral aspect of the right second metatarsal head which could represent an old erosion. Finalized by Jung Aranda M.D. on 05/26/2021 2:27 PM. Dictated by Jung Aranda M.D. on 05/26/2021 2:22 PM. Performing Organization Address [facility] P curry Number [facility] RESULTS * PERIPHERAL NERVE BLOCK (05/25/2021 4:30 PM CDT) Narrative Performed At Lenin Campbell DO 05/25/2021 5: 32 PM Anesthesia Procedure: Peripheral Nerve Block PERIPHERAL NERVE BLOCK Date/Time: 05/25/2021 4:30 PM Patient location: post-op Reason for block: at surgeon's request and post-op pain management Preprocedure checklist performed: 2 pat ient identifiers, risks & benefits discussed, patient evaluated, timeout p erformed, consent obtained, patient being monitored and sterile drape Sterile technique: - Proper hand washing - Cap, mask - Sterile gloves - Skin prep for antisepsis Peripheral Nerve Block Procedure Patient position: supine Prep: ChloraPrep Monitoring: BP, EKG and continuous puls e ox Block type: fascia iliaca Laterality: left Injection technique: single-shot Procedures: ultrasound guided Ultrasound image captured Needle/cathether: Needle type: Stimuplex Needle gauge: 22 G; Needle length: 4 in Needle location: anatomical landmark s and ultrasound guidance Procedure Medications Local Anesthesia: lidocaine PF 1% (10 m g/mL) injection, 3 mL Bolus Dose: bupivacaine (MARCAINE) 0.25 % injection, 20 mL Adjuvant Medications: dexamethasone (DE CADRON) 10 mg/mL injection, 4 mg Procedure Outcome Injection assessment: no paresthesia on injection, incremental injection and local visualized surrounding nerve on ultrasound Observations: adequate block, patient s edated but conversant throughout block, patient tolerated the procedure well with no immediate complications and comfortable throughou t block Additional notes: Initial aspiration po sitive for heme, redirected with negative aspiration Refer to nursing documentation for bob ls and monitoring data during procedure. Performed by: Lenin Campbell DO Authorized by: David Olivarez MD * FLUORO MOBILE IN OR (05/25/2021 1:21 PM CDT) Specimen Narrative Performed At This order has been auto finalized and does not conta in a result. [facility] Performing Organization Address City/State/ZIP Code P curry Number [facility] * HEMOGLOBIN A1C (05/24/2021 5:51 AM CDT) Hemoglobin A1C 8.1 (H) 4.0 - 6.0 % [facility] Comment: The ADA recommends that most patients with type 1 and type 2 diabetes maintain an A1c level <7%. Specimen Blood Performing Organization Address City/State/ZIP Code P curry Number [facility] [address] [place] [address] * CT ABD/PELV WO CONTRAST (05/23/2021 10:22 PM CDT) Specimen Left Impressions Performed At 1. No evidence of major abdominal or pelvic visceral injury or hemoperitoneum. [facility] RESULTS 2. Periprosthetic proximal left femoral fracture. Finalized by Javier Tamez MD, PhD on 05/23/2021 10:47 PM. Dictated by Javier Tamez MD, PhD on 05/23/2021 10:29 PM. Narrative Performed At CT ABD/PELV WO CONTRAST, CT LOWER EXTREM WO CONT LEFT [facility] RESULTS Clinical Indication: Fall, trauma, pain, left femoral fractu re Technique: Multiple contiguous helical axial imagi ng was performed through the abdomen and pelvis and left lower extremity without IV contrast. Sagittal and coronal reformations were rendered utilizing th e axial image data set area Comparison: no prior studies CT abdomen findings: Multivessel calcified atherosclerotic d isease noted. Lung bases are clear with no pleural pericardial effusion. Previo us median sternotomy is noted. Evaluation of the abdominal and pelvic viscera and vasculature is limited without use of IV contrast. There is mi ldly elongated Wesly's lobe. Spleen is normal in size. The pancreas and adrena l glands unremarkable. Kidneys are normal in size without hydronephrosis. The abdominal aorta is normal in calibe r. There is moderate calcified S chronic disease of the aorta and branch vascula ture. There is no retroperitoneal adenopathy or upper abdominal ascites. Prior cholecystectomy is noted. No acut e compression the lumbar spine. CT pelvis findings: Previous total left hip arthroplasty is noted. The uterus grossly unremarkable. Urinary bladder is decompressed around a Marrero catheter. There is no bowel obstruction. The appendix is normal. Th ere is no iliac or inguinal adenopathy. The sacrum and SI joints grossly unrema rkable. No pelvic ascites. CT left lower extremity findings: Previous total left hip arthroplasty is noted. There is comminuted fracturing through the proximal femoral diaphysis with slight overriding and lateral apex angulation the fracture site. Fracturin g is noted across the base the greater trochanter. The acetabular component is intact and the femoral head component maintains its articulation with the sofiya tabular component. Procedure Note Interface, Radiant Results - 05/23/2021 10:[address] ABD/PELV WO CONTRAST, CT LOWER EXTREM WO CONT LEFT Clinical Indication: Fall, trauma, pain, left femoral fracture Technique: Multiple contiguous helical axial imaging was performed through the abdomen and pelvis and left lower extremity without IV contrast. Sagittal and coronal reformations were rendered utilizing the axial image data set area Comparison: no prior studies CT abdomen findings: Multivessel calcified atherosclerotic disease noted. Lung bases are clear with no pleural pericardial effusion. Previous median sternotomy is noted. Evaluation of the abdominal and pelvic viscera and vasculature is limited without use of IV contrast. There is mildly elongated Wesly's lobe. Spleen is normal in size. The pancreas and adrenal glands unremarkable. Kidneys are normal in size without hydronephrosis. The abdominal aorta is normal in caliber. There is moderate calcified S chronic disease of the aorta and branch vasculature. There is no retroperitoneal adenopathy or upper abdominal ascites. Prior cholecystectomy is noted. No acute compression the lumbar spine. CT pelvis findings: Previous total left hip arthroplasty is noted. The uterus grossly unremarkable. Urinary bladder is decompressed around a Marrero catheter. There is no bowel obstruction. The appendix is normal. There is no iliac or inguinal adenopathy. The sacrum and SI joints grossly unremarkable. No pelvic ascites. CT left lower extremity findings: Previous total left hip arthroplasty is noted. There is comminuted fracturing through the proximal femoral diaphysis with slight overriding and lateral apex angulation the fracture site. Fracturing is noted across the base the greater trochanter. The acetabular component is intact and the femoral head component maintains its articulation with the acetabular component. IMPRESSION 1. No evidence of major abdominal or pel matthew visceral injury or hemoperitoneum. 2. Periprosthetic proximal left femoral fracture. Finalized by Javier Tamez MD, PhD on 05/23/2021 10:47 PM. Dictated by Javier Tamez MD, PhD on 05/23/2021 10:29 PM. Performing Organization Address City/State/ZIP Code P curry Number [facility] RESULTS * CT LOWER EXTREM WO CONT LEFT (05/23/2021 10:22 PM CDT) Specimen Impressions Performed At 1. No evidence of major abdominal or pelvic visceral injury or hemoperitoneum. [facility] RESULTS 2. Periprosthetic proximal left femoral fracture. Finalized by Javier Tamez MD, PhD on 05/23/2021 10:47 PM. Dictated by Javier Tamez MD, PhD on 05/23/2021 10:29 PM. Narrative Performed At CT ABD/PELV WO CONTRAST, CT LOWER EXTREM WO CONT LEFT [facility] RESULTS Clinical Indication: Fall, trauma, pain, left femoral fractu re Technique: Multiple contiguous helical axial imagi ng was performed through the abdomen and pelvis and left lower extremity without IV contrast. Sagittal and coronal reformations were rendered utilizing th e axial image data set area Comparison: no prior studies CT abdomen findings: Multivessel calcified atherosclerotic d isease noted. Lung bases are clear with no pleural pericardial effusion. Previo us median sternotomy is noted. Evaluation of the abdominal and pelvic viscera and vasculature is limited without use of IV contrast. There is mi ldly elongated Wesly's lobe. Spleen is normal in size. The pancreas and adrena l glands unremarkable. Kidneys are normal in size without hydronephrosis. The abdominal aorta is normal in calibe r. There is moderate calcified S chronic disease of the aorta and branch vascula ture. There is no retroperitoneal adenopathy or upper abdominal ascites. Prior cholecystectomy is noted. No acut e compression the lumbar spine. CT pelvis findings: Previous total left hip arthroplasty is noted. The uterus grossly unremarkable. Urinary bladder is decompressed around a Marrero catheter. There is no bowel obstruction. The appendix is normal. Th ere is no iliac or inguinal adenopathy. The sacrum and SI joints grossly unrema rkable. No pelvic ascites. CT left lower extremity findings: Previous total left hip arthroplasty is noted. There is comminuted fracturing through the proximal femoral diaphysis with slight overriding and lateral apex angulation the fracture site. Fracturin g is noted across the base the greater trochanter. The acetabular component is intact and the femoral head component maintains its articulation with the sofiya tabular component. Procedure Note Interface, Radiant Results - 05/23/2021 10:[address] ABD/PELV WO CONTRAST, CT LOWER EXTREM WO CONT LEFT Clinical Indication: Fall, trauma, pain, left femoral fracture Technique: Multiple contiguous helical axial imaging was performed through the abdomen and pelvis and left lower extremity without IV contrast. Sagittal and coronal reformations were rendered utilizing the axial image data set area Comparison: no prior studies CT abdomen findings: Multivessel calcified atherosclerotic disease noted. Lung bases are clear with no pleural pericardial effusion. Previous median sternotomy is noted. Evaluation of the abdominal and pelvic viscera and vasculature is limited without use of IV contrast. There is mildly elongated Wesly's lobe. Spleen is normal in size. The pancreas and adrenal glands unremarkable. Kidneys are normal in size without hydronephrosis. The abdominal aorta is normal in caliber. There is moderate calcified S chronic disease of the aorta and branch vasculature. There is no retroperitoneal adenopathy or upper abdominal ascites. Prior cholecystectomy is noted. No acute compression the lumbar spine. CT pelvis findings: Previous total left hip arthroplasty is noted. The uterus grossly unremarkable. Urinary bladder is decompressed around a Marrero catheter. There is no bowel obstruction. The appendix is normal. There is no iliac or inguinal adenopathy. The sacrum and SI joints grossly unremarkable. No pelvic ascites. CT left lower extremity findings: Previous total left hip arthroplasty is noted. There is comminuted fracturing through the proximal femoral diaphysis with slight overriding and lateral apex angulation the fracture site. Fracturing is noted across the base the greater trochanter. The acetabular component is intact and the femoral head component maintains its articulation with the acetabular component. IMPRESSION 1. No evidence of major abdominal or pel matthew visceral injury or hemoperitoneum. 2. Periprosthetic proximal left femoral fracture. Finalized by Javier Tamez MD, PhD on 05/23/2021 10:47 PM. Dictated by Javier Tamez MD, PhD on 05/23/2021 10:29 PM. Performing Organization Address City/State/ZIP Code P curry Number [facility] * TELEMETRY STRIPS-SCAN (05/23/2021 12:00 AM CDT) Narrative Performed At This result has an attachment that is n ot available. Ordered by an unspecified provider. from Last 3 Months Insurance Type Payer Benefit Subscriber ID Effective Phone Address Plan / Dates Group Medicare MEDICARE MEDICARE [id number] 2014-P PART A AND resent B Medicare CIGNA CIGNA [id number] 2016-P MEDICARE resent SUPPLEMENT ([place]) [place] [phone] Advance Directives Patient Program Engagement Director Explanation Type Date Recorded Advance 2016 12:00 AM Directive/DPOA DPOA Advance 12/22/2015 7:08 PM Directive/DPOA Date Inactivated Comments Code Status Date Activated 06/07/2021 2:01 PM Full Code 06/01/2021 1:16 PM Provider has discussed Code Status Yes w/Patient or Family? 06/01/2021 1:08 PM Full Code 05/23/2021 8:27 PM Provider has discussed Code Status Yes w/Patient or Family? 05/23/2021 8:27 PM Full Code 05/23/2021 6:51 PM Provider has discussed Code Status No, more discussi on w/Patient or Family? needed 08/29/2019 2:16 PM Full Code 08/28/2019 11:47 PM Provider has discussed Code Status Yes w/Patient or Family? 03/31/2016 12:56 PM Full Code 03/17/2016 5:38 PM Provider has discussed Code Status Yes w/Patient or Family?
--- OUTSIDE RECORDS SUMMARY | 2021-07-24 19:34 | XMS REPORT | Encounter Summary ---
Author Author [facility] Organization [facility] Address Unknown Phone Unavailable Care Team Providers Care Senior Corporate Accountant Name Role Phone Theresa Kowalski RN Unavailable [...] Diagnoses / Procedures Raman Wu MD [address] [place] [address] New Request Radiology Diagnoses S/P ORIF (open reduction internal fixation) fracture P rocedures FEMUR 2 VIEWS LEFT Electronically signed by Raman Wu MD at Reason for Visit * Radiology Services (Routine) Referred By Contact Referred To Contact Status Reason Specialty Diagnoses / Procedures Raman Wu MD [address] [place] [address] New Request Radiology Diagnoses S/P ORIF (open reduction internal fixation) fracture P rocedures FEMUR 2 VIEWS LEFT Encounter Details Care Team Description Date Type Department Raman Wu MD [address] [place] [address] 07/07/2021 Hospital Imaging: Olivier Alejandre s, Encounter [facility] [address] [facility]. [address] [place] [address] Social History Date Tobacco Use [...] impairment: No documented as of this encounter Medications at Time of Discharge Start Date End Date Medication Sig Dispensed Refills 06/04/2021 acetaminophen (TYLENOL) Take two 0 325 mg tablet tablets by mouth every 6 hours as needed for Pain. albuterol 0.083% Inhale 2.5 mg 0 (PROVENTIL) 2.5 mg /3 mL solution by (0.083 %) nebulizer nebulizer as solution directed every 4 hours as needed for Wheezing or Shortness of Breath. allopurinol (ZYLOPRIM) Take 300 mg 0 300 mg tablet by mouth daily. 06/07/2021 carvediloL (COREG) 3.125 Take one 60 tablet 1 mg tablet tablet by mouth twice daily. Take with food. cholecalciferol (VITAMIN Take 5,000 0 D-3) 5000 unit tablet Units by mouth daily. colchicine 0.6 mg tablet Take 0.6 mg 0 by mouth daily as needed. Gout dapagliflozin-metformin Take 1 tablet 0 (XIGDUO XR) 10-1,000 mg by mouth TBph daily. fish oil /omega-3 fatty Take 2,000 mg 0 acids (SEA-OMEGA) by mouth 340/1000 mg capsule twice daily. 06/07/2021 gabapentin (NEURONTIN) Take two 90 capsule 1 100 mg capsule capsules by mouth daily with breakfast AND one capsule at bedtime daily. 06/04/2021 insulin glargine (LANTUS Inject 15 mL 1 SOLOSTAR U-100 INSULIN) fourteen 100 unit/mL (3 mL) Units under injection PEN the skin at bedtime daily. ipratropium/albuterol Inhale 2 0 (COMBIVENT) 103/18 puffs by mcg/Actuation inhaler mouth into the lungs daily as needed. 06/04/2021 levothyroxine (SYNTHROID) Take one 90 tablet 0 88 mcg tablet tablet by mouth daily. 06/04/2021 linaGLIPtin (TRADJENTA) 5 Take one 30 tablet 0 mg tablet tablet by mouth daily. Magnesium Oxide 500 mg Take 500 mg 0 tab by mouth twice daily. 06/04/2021 melatonin (MELATIN) 3 mg Take one 90 tablet 0 tablet tablet by mouth at bedtime daily. 06/07/2021 methocarbamoL (ROBAXIN) Take one 7 tablet 0 500 mg tablet tablet by mouth every 8 hours as needed for Spasms. Pvwwgiiimlcvx-Xm-Eync-Min Take 1 tablet 0 erals 18-0.4 mg tab by mouth daily. 06/04/[address] (PRILOSEC) Take one 90 capsule 0 40 mg capsule capsule by mouth daily before breakfast. 06/07/2021 oxyCODONE (ROXICODONE) 5 Take one 7 tablet 0 mg tablet tablet by mouth every 4 hours while awake as needed oxymetazoline (AFRIN) Apply 2 0 0.05 % nasal spray sprays to each nostril as directed twice daily as needed. 06/04/2021 polyethylene glycol 3350 Take one 12 each 0 (MIRALAX) 17 g packet by packetIndications: mouth twice constipation daily. Hold dose if having loose bowel movements Indications: constipation 07/11/2019 sertraline (ZOLOFT) 100 Take 1 tablet 0 mg tablet by mouth daily. vitamins, multiple tablet Take 1 tablet 0 by mouth daily. 05/26/2020 07/19/2021 ezetimibe (ZETIA) 10 mg Take one 90 tablet 3 tablet tablet by mouth daily. 06/25/2020 07/20/2021 rosuvastatin (CRESTOR) 40 TAKE 1 TABLET 90 tablet 3 mg tablet EVERY DAY documented as of this encounter Discharge Disposition Code Departure Means Destination Disposition Home Home or Self Care documented in this encounter Plan of Treatment Not on filedocumented as of this encounter Goals Goal Patient Associated Recent Progress Patient-Stat Aut hor Goal Type Problems ed? get better and get my knee General Yes Berenice Tillman, then my back RN Resume normal activities Hospital On track (05/24/2021 Yes Alessandro, 2:25 PM CDT) MATT Aranda documented as of this encounter Procedures Comments Procedure Name Priority Date/Time Associated Diag nosis FEMUR 2 VIEWS LEFT Routine 07/07/2021 S/P ORIF (o pen reduction 2:36 PM CDT internal fixation) fracture documented in this encounter Results * FEMUR 2 VIEWS [...] ORIF (open reduction internal fixat ion) fracture Other postprocedural status documented in this encounter Additional Health Concerns Assessment Noted Time A fall risk assessment has been completed for the pat ient 06/07/2021 9:30 AM CDT PHQ-2 Depression Total Score: 0 02/02/2021 1:08 PM CDT documented as of this encounter
--- OUTSIDE RECORDS SUMMARY | 2021-07-24 19:34 | XMS REPORT | Encounter Summary ---
Author Author [facility] Organization [facility] Address Unknown Phone Unavailable Care Team Providers Care Human Resources Consultant Name Role Phone Theresa Kowalski RN Unavailable Unavailable Colleen Funes RN Unavailable Unavailable Demarco Byrd MD Unavailable Misty Garsia RN 2 Unavailable Tien Christianson MD Unavailable Unavailable Guillermina Davis NP PCP Steve Garcia MD Unavailable Cameron Bailey MD Unavailable Guillermina Davis NP 7 Reason for Visit * Reason Comments Post-op * Consult, Test & Treat (Discharge Pending) Referred By Contact Referred To Contact Status Reason Specialty Diagnoses / Procedures Rose Murray MD [address] [place] [id number] [address] [facility]. [address] [place] [address] Authorized Orthopedic Procedures Surgery APPOINTMENT REQUEST: ORTHOPEDICS Encounter Details Care Team Description Date Type Department Alma Rosa Jaramillo PA-C [address] [place] [address] Trauma 06/09/2021 Office Visit Orthopedics and Spo rts Medicine: [facility] [place], [facility] [address] [facility]. [address] [place] [address] Social History Date Tobacco Use Types Packs/Day [...] impairment: No documented as of this encounter Patient Instructions * Patient Instructions* Kerry Stroud RN - 06/09/2021 9:40 AM CDT Please do not hesitate to contact my office with any questions. Dr. Raman Wu | Orthopedic Surgeon, Trauma [facility] | | [address] | [place], [place] [address] Veronica George, RN, BSN | Ambulatory Clinic RN Rougher Operator | [facility] | | [email or web address] [address] | [place], [place] [address] documented in this encounter Progress Notes * Alma Rosa Jaramillo PA-C - 06/09/2021 9:40 AM CDT S/p ORIF left femoral shaft fracture 05/25/21 Doing well. No concerns or issues. Has been compliant with post op instructions. Denies any wound issues. No fevers, chills or sweats. Denies numbness, tingling or paresthesias. She was recently discharged from a rehab facility to home. PE: There were no vitals filed for this visit. LLE: incisions well healed, no erythema or drainage, minimal ttp, ROM limited 2/ 2 pain and stiffness. NVI distally XR: no images obtained this visit A/p: s/p ORIF left femoral shaft fracture 05/25/21 -Toe touch weightbearing left lower extremity -Sutures/kourtney removed. Ok to shower. Do not submerge incisions. -Pain control -Follow up 4 weeks with xrays documented in this encounter Plan of Treatment Not on filedocumented as of this encounter Goals Goal Patient Associated Recent Progress Patient-Stat Aut hor Goal Type Problems ed? get better and get my knee General Yes Berenice Tillman, then my back RN Resume normal activities Hospital On track (05/24/2021 Yes Alessandro, 2:25 PM CDT) MATT Aranda documented as of this encounter Visit Diagnoses Diagnosis Trauma Injury, other and unspecified, unspecif ied site documented in this encounter Orders First Ordered Date Appointment Request Count Last Ordered Date APPOINTMENT REQUEST: ORTHOPEDICS 1 06/07 documented in this encounter Additional Health Concerns Assessment Noted Time A fall risk assessment has been completed for the pat ient 06/07/2021 9:30 AM CDT PHQ-2 Depression Total Score: 0 02/02/2021 1:08 PM CDT documented as of this encounter"
--- OUTSIDE RECORDS SUMMARY | 2021-07-24 19:34 | XMS REPORT | Encounter Summary ---
Author Author [facility] Organization [facility] Address Unknown Phone Unavailable Care Team Providers Care Carpenter Streetcar Name Role Phone Theresa Kowalski RN Unavailable Unavailable Colleen Funes RN Unavailable Unavailable Demarco Byrd MD Unavailable Misty Garsia RN 2 Unavailable Tien Christianson MD Unavailable Unavailable Guillermina Davis NP PCP Steve Garcia MD Unavailable Cameron Bailey MD Unavailable Guillermina Davis NP 7 Reason for Referral * Consult, Test & Treat (Routine) Referred By Contact Referred To Contact Status Reason Specialty Diagnoses / Procedures Raman Wu MD [address] [place] [address] Closed Specialty Services Diagnoses Required S/P ORIF (open reduction internal fixation) fracture Comments 1-3 times per week for 12 weeks -L LE-25% WB for 1 wk, %50 WB 1 WK-then protected WBAT -S/p ORIF left femoral shaft fracture 05/25/21 Electronically signed by Raman Wu MD at Reason for Visit * Reason Comments Post Operative Visit Encounter Details Care Team Description Date Type Department Raman Wu MD [address] [place] [address] S/P ORIF (open reduction internal fixati on) fracture (Primary Dx) 07/07/2021 Office Visit Orthopedics and [facility] rts Medicine: [facility], [address] [place] [address] Social History Date Tobacco Use [...] * Patient Instructions* Kerry Stroud RN - 07/07/2021 2:40 PM CDT Please do not hesitate to contact my office with any questions. Dr. Raman Wu | Orthopedic Surgeon, Trauma [facility] | | [address] | [place], [place] [address] Veronica George, RN, BSN | Ambulatory Clinic RN Clarifier | [facility] | | [email or web address] [address] | [place], [place] [address] documented in this encounter Progress Notes * Raman Wu MD - 07/07/2021 2:40 PM CDT S/p ORIF left femoral shaft fracture [...] s/p ORIF left femoral shaft fracture 05/25/21 -25% weightbearing for a week, 50% for a week and then protected weightbearing a s tolerated following that. Cautioned the patient to avoid weightbearing to the point that she has discomfort. -Pain control -Follow up 4 weeks with xrays documented in this encounter Plan of Treatment Order Schedule Name Type Priority Associated Diag noses Ordered: 07/07/2021 AMB REFERRAL TO PHYSICAL Outpatient Routine S/P O RIF (open reduction THERAPY Referral internal fixation) fracture documented as of this encounter Goals Goal Patient Associated Recent Progress Patient-Stat Aut hor Goal Type Problems ed? get better and get my knee General Yes Berenice Tillman, then my back RN Resume normal activities Hospital On track (05/24/2021 Yes Alessandro, 2:25 PM CDT) MATT Aranda documented as of this encounter Visit Diagnoses Diagnosis S/P ORIF [...]
--- OUTSIDE RECORDS SUMMARY | 2021-07-24 19:34 | XMS REPORT | Encounter Summary ---
Author Author [facility] Organization [facility] Address Unknown Phone Unavailable Care Team Providers Care Tearoom Host Name Role Phone Theresa Kowalski RN Unavailable Unavailable Colleen Funes RN Unavailable Unavailable Demarco Byrd MD Unavailable Misty Garsia RN 2 Unavailable Tien Christianson MD Unavailable Unavailable Guillermina Davis NP PCP Steve Garcia MD Unavailable Cameron Bailey MD Unavailable Guillermina Davis NP 7 Encounter Details Care Team Description Date Type Department 06/09/2021 Travel Social History Date Tobacco Use Types [...]
--- OUTSIDE RECORDS SUMMARY | 2021-07-24 19:35 | XMS REPORT | Encounter Summary ---
Author Author [facility] Organization [facility] Address Unknown Phone Unavailable Care Team Providers Care Adhesive Primer Name Role Phone Theresa Kowalski RN Unavailable Unavailable Colleen Funes RN Unavailable Unavailable Demarco Byrd MD Unavailable Misty Garsia RN 2 Unavailable Tien Christianson MD Unavailable Unavailable Guillermina Davis NP PCP Steve Garcia MD Unavailable Cameron Bailey MD Unavailable Guillermina Davis NP 7 Encounter Details Care Team Description Date Type Department David Olivarez MD [address] [place] [address] 05/25/2021 Hospital Imaging: [place], Encounter [facility] [address] [facility]. [address] [place] [address] Social History Date Tobacco Use [...] PM CDT Date Recorded COVID-19 Exposure Response 05/25/2021 9:30 AM CDT In the last month, have you been in contact with No / Unsure someone who was confirmed or suspected to have Coronavirus / COVID-19? documented as of this encounter Functional Status Date of Assessment Functional Status Response 05/24/2021 Does the patient have a hearing impairment: [...] Date End Date Medication Sig Dispensed Refills albuterol 0.083% Inhale 2.5 mg 0 (PROVENTIL) 2.5 mg /3 mL solution by (0.083 %) nebulizer nebulizer as solution directed every 4 hours as needed for Wheezing or Shortness of Breath. allopurinol (ZYLOPRIM) Take 300 mg 0 300 mg tablet by mouth daily. cholecalciferol (VITAMIN Take 5,000 0 D-3) 5000 unit tablet Units by mouth daily. colchicine 0.6 mg tablet Take 0.6 mg 0 by mouth daily as needed. Gout dapagliflozin-metformin Take 1 tablet 0 (XIGDUO XR) 10-1,000 mg by mouth TBph daily. fish oil /omega-3 fatty Take 2,000 mg 0 acids (SEA-OMEGA) by mouth 340/1000 mg capsule twice daily. ipratropium/albuterol Inhale 2 0 (COMBIVENT) 103/18 puffs by mcg/Actuation inhaler mouth into the lungs daily as needed. Magnesium Oxide 500 mg Take 500 mg 0 tab by mouth twice daily. Mybaohmcpfvkr-Nt-Hvgy-Min Take 1 tablet 0 erals 18-0.4 mg tab by mouth daily. oxymetazoline (AFRIN) Apply 2 0 0.05 % nasal spray sprays to each nostril as directed twice daily as needed. 07/11/2019 sertraline (ZOLOFT) 100 Take 1 tablet 0 mg tablet by mouth daily. vitamins, multiple tablet Take 1 tablet 0 by mouth daily. 06/01/2021 06/04/2021 acetaminophen (TYLENOL) Take two 0 325 mg tablet tablets by mouth every 6 hours while awake. 06/01/2021 acetaminophen SR Take 650 mg 0 (TYLENOL) 650 mg tablet by mouth every 8 hours as needed for Pain. 06/01/2021 ALPRAZolam (XANAX) 1 mg Take 1 mg by 0 tablet mouth at bedtime as needed for Anxiety. Takes 1-2 tablets nightly 06/02/2021 06/01/2021 aspirin EC 81 mg tablet Take one 90 tablet 0 tablet by mouth daily. Take with food. 06/01/2021 06/04/2021 aspirin EC 81 mg tablet Take one 90 tablet 0 tablet by mouth twice daily for 35 days. Take with food. 03/01/2018 06/01/2021 aspirin EC 81 mg tablet Take 1 tablet 90 tablet 3 by mouth daily. Take with food. 06/01/2021 06/04/2021 bisacodyL (DULCOLAX) 10 Insert or 1 0 mg rectal suppository Apply one suppository suppository to rectal area as directed once for 1 dose. 06/01/2021 06/04/2021 carvediloL (COREG) 3.125 Take one 180 tablet 0 mg tablet tablet by mouth twice daily. Take with food. 02/01/2021 06/01/2021 carvediloL (COREG) 6.25 Take one 180 tablet 3 mg tablet tablet by mouth twice daily. Take with food. 05/26/2020 07/19/2021 ezetimibe (ZETIA) 10 mg Take one 90 tablet 3 tablet tablet by mouth daily. 06/02/2021 06/04/2021 gabapentin (NEURONTIN) Take two 270 capsule 0 100 mg capsule capsules by mouth daily. 06/01/2021 gabapentin (NEURONTIN) Take 100 mg 0 100 mg capsule by mouth. Take by mouth twice daily, 200 mg in the morning and 100 mg at bedtime total dose 300 mg 06/01/2021 06/04/2021 hydrOXYzine HCL (ATARAX) Take one 90 tablet 0 25 mg tablet tablet by mouth three times daily as needed. 06/01/2021 06/04/2021 insulin aspart (U-100) Inject zero 45 mL 0 (NOVOLOG FLEXPEN U-100 Units to INSULIN) 100 unit/mL (3 twenty four mL) injection PEN Units under the skin before meals and 2200. 06/01/2021 06/04/2021 insulin aspart (U-100) Inject eight 45 mL 0 (NOVOLOG FLEXPEN U-100 Units under INSULIN) 100 unit/mL (3 the skin mL) injection PEN three times daily with meals. 06/01/2021 06/04/2021 insulin glargine (LANTUS Inject twenty 45 mL 0 SOLOSTAR U-100 INSULIN) Units under 100 unit/mL (3 mL) the skin at injection PEN bedtime daily. 06/02/2021 06/04/2021 levothyroxine (SYNTHROID) Take one 90 tablet 0 88 mcg tablet tablet by mouth daily. 06/01/2021 levothyroxine (SYNTHROID) Take 88 mcg 0 88 mcg tablet by mouth daily. 06/02/2021 06/04/2021 lidocaine (LIDODERM) 5 % Apply one 90 patch 0 topical patch patch topically to affected area daily. Apply patch for 12 hours, then remove for 12 hours before repeating. 06/01/2021 linagliptin (TRADJENTA) 5 Take 5 mg by 0 mg tab mouth daily. 06/01/2021 06/04/2021 melatonin (MELATIN) 3 mg Take one 90 tablet 0 tablet tablet by mouth at bedtime daily. 06/01/2021 meloxicam (MOBIC) 15 mg Take 15 mg by 0 tablet mouth daily. 06/01/2021 06/04/2021 methocarbamoL (ROBAXIN) Take one 0 500 mg tablet tablet by mouth three times daily. 06/02/2021 06/04/2021 milk of magnesia (CONC) Take 10 mL by 360 mL 0 2,400 mg/10 mL oral mouth daily. suspension 06/01/[address] (PRILOSEC) Take 40 mg by 0 40 mg capsule mouth daily before breakfast. 06/01/2021 06/04/2021 oxyCODONE (ROXICODONE) 5 Take one 50 tablet 0 mg tablet tablet to two tablets by mouth every 4 hours as needed 06/01/2021 06/04/[address] Take one 90 tablet 0 (PROTONIX) 40 mg tablet tablet by mouth daily. 06/01/2021 06/04/2021 polyethylene glycol 3350 Take one 12 each 0 (MIRALAX) 17 g packet packet by mouth twice daily. 06/25/2020 07/20/2021 rosuvastatin (CRESTOR) 40 TAKE 1 TABLET 90 tablet 3 mg tablet EVERY DAY 06/01/2021 06/04/2021 senna/docusate Take two 90 tablet 0 (SENOKOT-S) 8.6/50 mg tablets by tablet mouth twice daily. 05/17/2021 06/07/2021 spironolactone TAKE 1 TABLET 90 tablet 3 (ALDACTONE) 25 mg tablet EVERY DAY WITH FOOD documented as of this encounter Discharge Disposition Code Departure Means Destination Disposition Home Home or Self Care documented in this encounter Plan of Treatment Date/Time Name Type Priority Associated Diag noses 05/25/2021 3:58 PM CDT POC ANES US GUIDED NERVE Imaging STAT BLOCK documented as of this encounter Goals Goal [...] has been completed for the pat ient 05/25/2021 9:13 PM CDT PHQ-2 Depression Total Score: 0 02/02/2021 1:08 PM CDT documented as of this encounter
--- OUTSIDE RECORDS SUMMARY | 2021-07-24 19:35 | XMS REPORT | Encounter Summary ---
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 Name Role Phone Theresa Kowalski RN Unavailable Unavailable Colleen Funes RN Unavailable Unavailable Demarco Byrd MD Unavailable Misty Garsia RN 2 Unavailable Tien Christianson MD Unavailable Unavailable Guillermina Davis NP PCP Steve Garcia MD Unavailable Cameron Bailey MD Unavailable Guillermina Davis NP 7 Reason for Referral * Consult, Test & Treat (Discharge Pending) Referred By Contact Referred To Contact Status Reason Specialty Diagnoses / Procedures Rose Gomze MD [address] [facility] [place] [address] [facility] Med [address] [facility] [address] [place] [address] Authorized Rehabilitation Diagnoses Medicine Closed fracture of left hip with routine healing, subsequent encounter P rocedures APPOINTMENT REQUEST: SPINE CENTER Electronically signed by Rose Gomez MD at * Consult, Test & Treat (Discharge Pending) Referred By Contact Referred To Contact Status Reason Specialty Diagnoses / Procedures Rose Gomez MD [address] [facility] [place] [address] [facility] [address] [facility]. [address] [place] [address] Authorized Orthopedic Procedures Surgery APPOINTMENT REQUEST: ORTHOPEDICS Electronically signed by Rose Gomez MD at Reason for Visit * Auth/Cert Referred By Contact Referred To Contact Status Reason Specialty Diagnoses / Procedures Diagnoses Closed left hip fracture, initial encounter (HCC) left hip fracture Encounter Details Care Team Description Date Type Department Rose Gomez MD [address] [facility] [place] [address] Hip fracture (HCC) 06/01/2021 Hospital Rehabilitation: Acu te - Encounter Inpatient Rehabilit ation 06/07/2021 [address] [facility]. [address] [place] [address] Social History Date Tobacco Use Types Packs/Day [...] / COVID-19? documented as of this encounter Last Filed Vital Signs Reading Time Taken Comments Vital Sign 131/47 06/07/2021 4:27 AM CDT Blood Pressure 79 06/07/2021 4:27 AM CDT Pulse 36.9 C (98.4 F) 06/07/2021 4:27 AM CDT Temperature - - Respiratory Rate 96% 06/07/2021 4:27 AM CDT Oxygen Saturation - - Inhaled Oxygen Concentration 92.3 kg (203 lb 7.8 oz) 06/07/2021 4:27 AM CDT Weight 154.9 cm (5' 1") 06/01/2021 1:21 PM CDT Height 38.45 06/01/2021 1:21 PM CDT Body Mass Index documented in this encounter Functional Status Date of Assessment [...] impairment: No documented as of this encounter Discharge Summaries * Rose Gomez MD - 06/07/2021 11:56 AM CDT ATTESTATION: I have reviewed the discharge summary and agree with the resident's documentatio n. The patient was seen today and remained stable for discharge. The patient discha rged home with assistance from family. Follow up instructions including appointm ents were provided and prescriptions were provided. Patient understands signs to look out for that would require to call a doctor(s) and/or call 911. Left hip periprosthetic fracture secondary to fall, s/p ORIF with residual motor weakness, reduced activity tolerance, poor endurance, impaired balance, reduced WB status and ROM resulting in impaired mobility/ADLs, gait abnormality. Patie nt met overall goal of mod I with wheelchair, ramp, hospital bed at household le luann by time of rehab discharge. Discharge home today with PT/OT/RN. Patient knows to follow up with Orthopedic Surgery, PM&R, Endocrinology, PCP. Patient knows not to return to work or driving until cleared by outpatient physi cians. Patient knows TTWB LLE precautions. Family training was completed for wound care. Staff name: Rose Gomez MD Discharge Summary Name: Tanja Deal Date Of : 1950 Age: 71 years Admit date: 06/01/2021 Discharge date: 06/07/2021 Discharge Attending: Rose Gomez MD Discharge Summary Completed By: Jeison Richter MD Service: Rehab Medicine Reason for hospitalization: Closed left hip fracture, initial encounter ([facility]) [S72.002A] Primary Discharge Diagnosis: Hip fracture ([facility]) Hospital Diagnoses: Hospital Problems Active Problems * (Principal) Hip fracture ([facility]) Type II diabetes mellitus ([facility]) Essential hypertension Hypothyroid Hyperlipidemia Class 2 severe obesity due to excess calories with serious comorbidity and body mass index (BMI) of 37.0 to 37.9 in adult ([facility]) Anxiety CKD (chronic kidney disease) stage 3, GFR 30-59 ml/min ([facility]) Dyslipidemia associated with type 2 diabetes mellitus ([facility]) CVA (cerebral vascular accident) ([facility]) CAD (coronary artery disease) S/P CABG (coronary artery bypass graft) Left foot drop Thrombocytopenia ([facility]) Impaired mobility and ADLs Impaired functional mobility, balance, gait, and endurance Significant Past Medical History Anxiety Arrhythmia Comment: Patient denies Arthritis Back pain Cardiac arrhythmia Chest pain Coronary artery disease Essential hypertension Fibromyalgia Comment: No current treatment required Gout Heart attack ([facility]) History of non-ST elevation myocardial infarction (NSTEMI) Hyperlipidemia Hypothyroid Kidney insufficiency Comment: 07/09/19 BUN/Cr: 26/1.23 - Monitored by PCP Morbid obesity with BMI of 40.0-44.9, adult ([facility]) Neuropathy Comment: Patient denies Numbness and tingling in left hand Comment: Due to CVA Osteoarthritis Stroke ([facility]) Comment: RUE weakness Thyroid disease Type II diabetes mellitus ([facility]) Comment: Managed with metformin & glimepiride Allergies Prednisone, Lisinopril, and Naproxen Brief Hospital Course 71F with h/o HTN, CAD, DM2, CKD, prior L hip fracture s/p arthroplasty admitted to [facility] with left periprosthetic femur with residual motor weakness, reduced a ctivity tolerance, poor endurance, impaired balance, reduced WB status and ROM. Hospital course c/b acute blood loss anemia requiring transfusions, hyperglycem ia. She is s/p left hip fracture arthroplasty on 05/25/[address] Wu , history of stroke without late effects of weakness. [facility] following a fall during which the patient lost her balance while stepping over a curb landing onto her right side, denying loss of consciousness or hitting her head. She was found to have a left periprosthetic f emur fracture and is now status post ORIF of periprosthetic left femur fracture. Along her hospitalization, IM service was consulted for geriatric trauma and to help manage multiple medical comorbidities including postoperative pain, bloo d loss anemia, type 2 diabetes requiring insulin therapy, CKD stage III, depress ion. PM&R physician consulted to help with post-acute care needs. Patient has been working with physical and occupational therapy -[id number] has been making functional gains. PLOF was independent. She lives alone and family and friends can provide limite d assistance. She lives in an apartment w/o stairs. She owns a SPC. CLOF is SBA with eating and grooming, modA with LED and minAx2 with gait using RW, Osmany with bed mobility, modA with transfers. 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 During the [facility] hospital course the followi ng rehabilitation problems and medical diagnosis/commodities were addressed and managed, including impaired balance, impaired ADLs, impaired mobility, impaired ambulation, motor weakness, reduced activity tolerance, poor endurance, reduced weightbearing status and limited range of motion secondary to left hip periprost hetic fracture from a fall. Patient participating physical therapy and Occupati onal Therapy addressing the functional mobility deficits described above. She a lso participating in speech therapy to help with cognitive impairment/insight. Per orthopedic surgery, will discharge patient with aspirin 81 mg twice daily fo r 4 weeks. Orthopedic surgery to manage the dressing, if saturated replaced alan ssing with 4 x 4 gauze and Tegaderm or Hypafix tape. Patient has a follow-up ap pointment with Dr. Burt office on 06/09. She will be discharging with toe-touch weightbearing status of the left lower extremity. Patient has a follow-up appoi ntment with orthopedic surgeon 06/09, telehealth appointment with rehabitation anisha lovell 07/08, endocrinology appointment on 07/15, nephrology appointment on 08/30. The patient was discharged today 06/07/2021 in medically stable condition. Medications, restrictions, follow-up appointments, and patient/family education/ training was provided and/or reviewed prior to discharge as outlined below. Rehab QI: Evaluation QI Current QI Transfer: Sit to stand assist level: Minimum assistance Gait Distance: 4 feet GAIT: Assist Level: Minimum assistance Gait: Assistive Device: Roller Walker Wheelchair: Distance: 25 feet Wheelchair: Assistance Level: Minimum assistance Grooming Assist: Stand By Assist Bathing Assist: Shower, Minimal Assist UE Dressing Assist: Stand By Assist LE Dressing Assist: Moderate Assist Toileting Assist: Minimal Assist Toilet Transfer Assist: Minimum assistance Shower Transfer Assist: Minimum assistance Patient continent of bladder?: Yes, void Patient continent of bowel?: Yes, no bowel program Nutritional Diet: Diabetic (Standard) consistent carb Transfer: Sit to stand ass ist level: Modified independent Gait Distance: 4 feet GAIT: Assist Level: Minimum assistance Gait: Assistive Device: Roller Walker Wheelchair: Distance: 200 feet (200) Wheelchair: Assistance Level: Modified independent (device) Grooming Assist: Independent Bathing Assist: Modified Independent UE Dressing Assist: Independent LE Dressing Assist: Modified Independent Toileting Assist: Stand By Assist Toilet Transfer Assist: Stand by assistance Shower Transfer Assist: Minimum assistance Patient continent of bladder?: Yes, void Patient continent of bowel?: No Nutritional Diet: Diabetic (Standard) consistent carb Items Needing Follow Up Pending items or areas that need to be addressed at follow up: none Pending Labs and Follow Up Radiology Pending labs and/or radiology review at this time of discharge are listed below: if this area is blank, there are no items for review. Medications Medication List START taking these medications levoFLOXacin 750 mg tablet; Commonly known as: LEVAQUIN; Dose: 750 mg; Take one tablet by mouth every 24 hours for 1 day. Indications: an infection of the genitals or urinary tract; For: an infection of the genitals or urinary tract; Quantity: 1 tablet; Refills: [address] 40 mg capsule; Commonly known as: PriLOSEC; Dose: 40 mg; Take one capsule by mouth daily before breakfast.; Quantity: 90 capsule; Refills: 0 TRADJENTA 5 mg tablet; Generic drug: linaGLIPtin; Dose: 5 mg; Take one tablet by mouth daily.; Quantity: 30 tablet; Refills: 0 CHANGE how you take these medications acetaminophen 325 mg tablet; Commonly known as: TYLENOL; Dose: 650 mg; Take two tablets by mouth every 6 hours as needed for Pain.; Refills: 0; What changed: when to take this, reasons to take this aspirin EC 81 mg tablet; Dose: 81 mg; Take one tablet by mouth twice daily for 27 days. Take with food. Take twice daily through 07/06, then decrease back to one tablet daily starting on 07/07; Quantity: 90 tablet; Refills: 0; Start taking on: June 09, 2021; What changed: additional instructions, These instructions start on June 09, 2021. If you are unsure what to do until then, ask your doctor or other care provider. gabapentin 100 mg capsule; Commonly known as: NEURONTIN; Take two capsules by mouth daily with breakfast AND one capsule at bedtime daily.; Quantity: 90 capsule; Refills: 1; What changed: See the new instructions. insulin glargine 100 unit/mL (3 mL) injection PEN; Commonly known as: LANTUS SOLOSTAR U-100 INSULIN; Dose: 14 Units; Doctor's comments: The pharmacist may select Lantus Solorstar or Basaglar Kwikpen based on what is cheaper for the patient.; Inject fourteen Units under the skin at bedtime daily.; Quantity: 15 mL; Refills: 1; What changed: how much to take methocarbamoL 500 mg tablet; Commonly known as: ROBAXIN; Dose: 500 mg; Take one tablet by mouth every 8 hours as needed for Spasms.; Quantity: 7 tablet; Refills: 0; What changed: when to take this, reasons to take this oxyCODONE 5 mg tablet; Commonly known as: ROXICODONE; Dose: 5 mg; Take one tablet by mouth every 4 hours while awake as needed; Quantity: 7 tablet; Refills: 0; What changed: how much to take, when to take this polyethylene glycol 3350 17 g packet; Commonly known as: MIRALAX; Dose: 17 g; Take one packet by mouth twice daily. Hold dose if having loose bowel movements Indications: constipation; For: constipation; Quantity: 12 each; Refills: 0; What changed: additional instructions CONTINUE taking these medications albuterol 0.083% 2.5 mg /3 mL (0.083 %) nebulizer solution; Commonly known as: PROVENTIL; Dose: 2.5 mg; Refills: 0 allopurinoL 300 mg tablet; Commonly known as: ZYLOPRIM; Dose: 300 mg; Refills: 0 carvediloL 3.125 mg tablet; Commonly known as: COREG; Dose: 3.125 mg; Take one tablet by mouth twice daily. Take with food.; Quantity: 60 tablet; Refills: 1 cholecalciferol 5000 unit tablet; Commonly known as: VITAMIN D-3; Dose: 5,000 Units; Refills: 0 colchicine 0.6 mg tablet; Commonly known as: COLCRYS; Dose: 0.6 mg; Refills: 0 COMBIVENT 103/18 mcg/Actuation inhaler; Generic drug: ipratropium/albuterol; Dose: 2 puff; Refills: 0 ezetimibe 10 mg tablet; Commonly known as: ZETIA; Dose: 10 mg; Take one tablet by mouth daily.; Quantity: 90 tablet; Refills: 3 fish oil /omega-3 fatty acids 340/1000 mg capsule; Commonly known as: SEA-OMEGA; Dose: 2,000 mg; Refills: 0 levothyroxine 88 mcg tablet; Commonly known as: SYNTHROID; Dose: 88 mcg; Take one tablet by mouth daily.; Quantity: 90 tablet; Refills: 0 Magnesium Oxide 500 mg Tab; Dose: 500 mg; Refills: 0 melatonin 3 mg tablet; Commonly known as: MELATIN; Dose: 3 mg; Take one tablet by mouth at bedtime daily.; Quantity: 90 tablet; Refills: 0 Demeyzborgfsm-Fk-Xyij-Minerals 18-0.4 mg Tab; Dose: 1 tablet; Refills: 0 oxymetazoline 0.05 % nasal spray; Commonly known as: AFRIN; Dose: 2 spray; Refills: 0 rosuvastatin 40 mg tablet; Commonly known as: CRESTOR; TAKE 1 TABLET EVERY DAY; Quantity: 90 tablet; Refills: 3 sertraline 100 mg tablet; Commonly known as: ZOLOFT; Dose: 1 tablet; Refills: 0 vitamins, multiple tablet; Dose: 1 tablet; Refills: 0 XIGDUO XR 10-1,000 mg Tbph; Generic drug: dapagliflozin-metformin; Dose: 1 tablet; Refills: 0 STOP taking these medications bisacodyL 10 mg rectal suppository; Commonly known as: DULCOLAX hydrOXYzine HCL 25 mg tablet; Commonly known as: ATARAX insulin aspart (U-100) 100 unit/mL (3 mL) injection PEN; Commonly known as: NOVOLOG FLEXPEN U-100 INSULIN lidocaine 5 % topical patch; Commonly known as: LIDODERM milk of magnesia (CONC) 2,400 mg/10 mL oral suspension pantoprazole [address] 40 mg tablet; Commonly known as: PROTONIX senna/docusate 8.6/50 mg tablet; Commonly known as: SENOKOT-S spironolactone 25 mg tablet; Commonly known as: ALDACTONE Return Appointments and Scheduled Appointments Scheduled appointments: Jun 09, 2021 9:40 AM Postoperative visit with Alma Rosa Jaramillo PA-C Orthopedics and Sports Medicine: [facility] (Orthopedics and Sports) [address] [facility] [address] [facility] [id number] Jul 08, 2021 8:15 AM Telehealth visit with Navarro Roberson MD [facility] Med: [facility] ([facility]) [address], [address] [facility] [address] Jul 15, 2021 9:40 AM Office visit with Shona Patricio MD Endocrinology: [facility] [address] [facility] [address] Aug 30, 2021 9:20 AM Office visit with Smith Crocker MD Nephrology: [facility] (Internal Medicine) [address] [facility] [address] [facility] [address] Additional appointment instructions: Discharge Follow-up Appointments/Phone number: Expect a phone call from Rehabilitation Staff to schedule a follow-up appoint ment with your rehabilitation physician. If you don't hear from anyone in 1-2 weeks please call [phone] to schedule. We additionally recommend that you see your primary care physician within 7 days of discharge. Follow up with Orthopedic Surgery - Raman Wu MD on 06/09/21 If no appointment schedule, please call phone number: [phone] Consults, Procedures, Diagnostics, Micro, Pathology Consults: None Surgical Procedures & Dates: None Significant Diagnostic Studies, Micro and Procedures: none Significant Pathology: none Discharge Disposition, Condition Patient Disposition: Home Condition at Discharge: Stable Code Status Code Status History Date Active Date Inactive Code Status Order ID [id number]/01/2021 [id number] Full Code [id number] Zhanna Artis MD Inpat ient 05/23/2021 1851 05/23/20212026 Full Code [id number] Ame Mondragon MD Inpatient Only showing the last 2 code statuses. Patient Instructions Diabetic Diet You should eat between 1600 and 2000 calories per day. This is equal to 60g (g michelle) of carbohydrates per meal, and 30g of carbohydrates for a bedtime snack. If you have questions about your diet after you go home, you can call a dietitia n at [phone]. Report These Signs and Symptoms Please contact your doctor if you have any of the following symptoms: temperatu re higher than 100.4 degrees F, uncontrolled pain, persistent nausea and/or vomi ting, difficulty breathing, chest pain, severe abdominal pain, headache, unable to urinate, unable to have bowel movement, or drainage with a foul odor Questions About Your Stay For questions or concerns regarding your hospital stay, call [phone]. Discharging attending physician: ROSE GOMEZ [[id number]] Activity as Tolerated It is important to keep increasing your activity level after you leave the hosp ital. Moving around can help prevent blood clots, lung infection (pneumonia) an d other problems. Gradually increasing the number of times you are up moving ar ound will help you return to your normal activity level more quickly. Continue to increase the number of times you are up to the chair and walking daily to ret urn to your normal activity level. Begin to work toward your normal activity lev el at discharge Restrictions for Left Leg Toe touch: You may place the toes of your affected leg on the ground while walk ing only to assist with balance. Continue these restrictions until follow up appointment with Dr Wu - orthopedi c surgery. Incision Care Keep dressing and incision clean. Do not soak in water. Maintain dressing left hip unless saturation, if saturated please remove entire dressing> 1. apply betadine to incision 2. Cover with gauze and hypafix tape Opioid (Narcotic) Safety Information OPIOID (NARCOTIC) PAIN MEDICATION SAFETY We care about your comfort, and believe you need opioid medications at this time to treat your pain. An opioid is a strong pain medication. It is only availab le by prescription for moderate to severe pain. Usually these medications are u sed for only a short time to treat pain, but sometimes will be prescribed for lo nger. Talk with your doctor or nurse about how long they expect you to need thi s medication. When used the right way, opioids are safe and effective medications to treat you r pain, even when used for a long time. Yet, when used in the wrong way, opioid s can be dangerous for you or others. Opioids do not work for everyone. Most p atients do not get full relief of their pain from opioid medication; full relief of your pain may not be possible. For your safety, we ask you to follow these instructions: *Only take your opioid medication as prescribed. If your pain is not controlled with the prescribed dose, or the medication is not lasting long enough, call yo doctor. *Do not break or crush your opioid medication unless your doctor or pharmacist s ays you can. With certain medications, this can be dangerous, and may cause cam th. *Never share your medications with others, even if they appear to have a good re ason. Never take someone else's pain medication-this is dangerous, and illegal (a crime). Overdoses and deaths have occurred. *Keep your opioid medications safe, as you would with tavarez, in a lock box or sim ilar container. *Make sure your opioids are going to be secure, especially if you are around chi ldren or teens. *Talk with your doctor or pharmacist before you take other medications. *Avoid driving, operating machinery, or drinking alcohol while taking opioid kameron n medication. This may be unsafe. Pain medications can cause constipation. Constipation is bowel movements that ar e less often than normal. Stools often become very hard and difficult to pass. T his may lead to stomach pain and bloating. It may also cause pain when trying to use the bathroom. Constipation may be treated with suppositories, laxatives or stool softeners. A diet high in fiber with plenty of fluids helps to maintain re gular, soft bowel movements. Appointment Request: [facility] Center BOB MARIN f/u, may do tele health Diagnosis or reason for outpatient bertha't request BOB MARIN Was patient seen in hospital by requested consult service? Yes Time frame requested for the outpatient bertha't (provide range): 4w Pager # of the requesting provider if any questions? [phone] Additional Orders: Case Management, Supplies, Home Health Home Health/DME HOME HEALTH/DME ONCE Comments: Home Health/Durable Medical Equipment Order Details Patient Name: Tanja Deal Medical Record Number: [id number] Agency Instructions: Start of care within 24-48 hours of hospital discharge, anticipated discharge . RN to complete general assessment, including vitals with temperature, m onitor and teach patient and/or caregiver medication management and compliance, monitor and teach pain management and pain medication compliance when necessary. Monitor and teach signs and symptoms of infection, monitor and teach disease ma nagement, including signs and symptoms, diet, who and when to call, hospital david dmission avoidance. Physical Therapy to evaluate and treat along with home safety evaluation. Teac h strategies for energy conservation, mobility training, strengthening, balance activities and address deficits, maximize function and improve safety. Occupational Therapy to evaluate and treat along with home safety evaluation. Teach strategies for energy conservation, mobility training, strengthening, bal ance activities and address deficits, maximize function and improve safety. LLE TTWB Wound Care: Left Hip Surgical Incision - Assess and change dressing every 48 hours. Apply be tadine and cover with 4x4 gauze and tegaderm/hypafix. If any new drainage seen or concerns for infection, please [facility] @ [phone] or Alma Rosa Jaramillo [facility], [phone] Clinical findings to support homebound status: Poor tolerance for activity and E xtreme weakness and/or fatigue Clinical findings to support home care services: Post-surgical or other wound, M uscle weakness affecting functional activities, and Balance deficits with risk f or falling I certify that this patient is under my care and that I, or a nurse practitioner or physician's bilingual sales assistant working with me, had a mkso-by-kulj encounter that baldomero ts the physician's fojs-if-aiuy encounter requirements with this patient on 06/07. This patient is under my care, and I have initiated the establishment of the billy n of care. This patient will be followed by a physician after discharge, who w ill periodically review the plan of care. Dr. Rose Gomez Question Answer Comment Attending Name/Contact Dr. Rose Gomez PCP Name/Contact Dr. Guillermina Davis ; Home Health to Follow PCP HOME HEALTH/DME ONCE Comments: Durable Medical Equipment Order Details Patient Name: Tanja Deal Medical Record Number: [id number] Equipment Information & Instructions: Patient requires a semi-electric hospital bed at discharge. Patient has a medic al condition which requires positioning of the body in ways not feasible with an ordinary bed. Patient requires positioning of the body in ways not feasible wit h ordinary beds in order to alleviate pain. Patient requires positioning of the body in ways not feasible with ordinary beds, and the patient requires frequent repositioning of the body or has an immediate need for change in body position. ICD10 Code: S72.009A, I63.9, Z74.09 Length of Need: 99 + month Height: 61" Weight: 201 lb I certify that this patient is under my care and that I, or a nurse practitioner or physician's bilingual sales assistant working with me, had a wajn-cu-rrvc encounter that baldomero ts the physician's fkyg-hh-yshh encounter requirements with this patient on 06/03. This patient is under my care, and I have initiated the establishment of the billy n of care. This patient will be followed by a physician after discharge, who w ill periodically review the plan of care. Dr. Rose Gomez NPMesha [phone] Question: Attending Name/Contact Answer: Dr. Rose Gomez Signed: Jeison Richter MD 06/07/2021 cc: Primary Care Physician: Guillermina Davis Referring physicians: Rose Gomez MD Additional provider(s): Did we miss something? If additional records are needed, please fax a request on office letterhead to [phone]. Please include the patient's name, date of b irth, fax number and type of information needed. Additional request can be made by email at [email or web address]. For general questions of information about electronic records sharing, call [phone]. documented in this encounter Discharge Instructions * Appointments* Jeison Godoy MD - 06/07/2021 9:46 AM CDT Discharge Follow-up Appointments/Phone number: Expect a phone call from Rehabilitation Staff to schedule a follow-up appoint ment with your rehabilitation physician. If you don't hear from anyone in 1-2 weeks please call [phone] to schedule. We additionally recommend that you see your primary care physician within 7 days of discharge. Follow up with Orthopedic Surgery - Raman Wu MD on 06/09/21 If no appointment schedule, please call phone number: [phone] * Rehab Team Physician* Jeison Godoy MD - 06/01/2021 3:02 PM CDT 71 y.o. female admitted for left hip fracture on 06/01/2021 Current medical issues: - left hip fracture status post ORIF,pain under appropriate control, CTM dressin g PCP follow up appointment: We currently have Guillermina Davis at [phone] on file. 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 Home has walk in shower with grab bars. H ome does not have steps to enter. Prior to admission, patient independent with all ADLs. Patient managed her own m edications. Zenaida has three daughters who can assist intermittently at discharge. Patient has hx of [facility], HH and OP Therapy. Patient typically uses a pyramid cane for ambulation. Patient also owns a walker , shower chair and grab bars. Patient has Medicare A & B, Medicare supplement, and RX Coverage. Plan for patient to discharge home. * Rehab Team DC Planning* Reena Vigil - 06/02/2021 8:57 AM CDT Plan DME documented in this encounter Medications at Time of Discharge [...] every 8 hours as needed for Spasms. Igtkyvvihejlh-Tm-Nncz-Min Take 1 tablet 0 erals 18-0.4 mg [...] Take 1 tablet 0 by mouth daily. 06/09/2021 07/06/2021 aspirin EC 81 mg tablet Take one 90 tablet 0 tablet by mouth twice daily for 27 days. Take with food. Take twice daily through 07/06, then decrease back to one tablet daily starting on 07/0705/26/2020 07/19/2021 ezetimibe (ZETIA) 10 mg Take one 90 tablet 3 tablet tablet by mouth daily. 06/07/2021 06/08/2021 levoFLOXacin (LEVAQUIN) Take one 1 tablet 0 750 mg tabletIndications: tablet by genitourinary tract mouth every infections 24 hours for 1 day. Indications: an infection of the genitals or urinary tract 06/25/2020 07/20/2021 rosuvastatin (CRESTOR) 40 TAKE 1 TABLET 90 tablet 3 mg tablet EVERY DAY documented as of this encounter Ordered Prescriptions Start Date End Date Prescription Sig Dispensed Refills 06/07/2021 methocarbamoL (ROBAXIN) Take one 7 tablet 0 500 mg tablet tablet by mouth every 8 hours as needed for Spasms. 06/07/2021 oxyCODONE (ROXICODONE) 5 Take one 7 tablet 0 mg tablet tablet by mouth every 4 hours while awake as needed 06/07/2021 gabapentin (NEURONTIN) Take two 90 capsule 1 100 mg capsule capsules by mouth daily with breakfast AND one capsule at bedtime daily. 06/07/2021 carvediloL (COREG) 3.125 Take one 60 tablet 1 mg tablet tablet by mouth twice daily. Take with food. 06/04/2021 insulin glargine (LANTUS Inject 15 mL 1 SOLOSTAR U-100 INSULIN) fourteen 100 unit/mL (3 mL) Units under injection PEN the skin at bedtime daily. 06/04/2021 linaGLIPtin (TRADJENTA) 5 Take one 30 tablet 0 mg tablet tablet by mouth daily. 06/04/2021 melatonin (MELATIN) 3 mg Take one 90 tablet 0 tablet tablet by mouth at bedtime daily. 06/04/2021 levothyroxine (SYNTHROID) Take one 90 tablet 0 88 mcg tablet tablet by mouth daily. 06/04/[address] (PRILOSEC) Take one 90 capsule 0 40 mg capsule capsule by mouth daily before breakfast. 06/04/2021 polyethylene glycol 3350 Take one 12 each 0 (MIRALAX) 17 g packet by packetIndications: mouth twice constipation daily. Hold dose if having loose bowel movements Indications: constipation 06/04/2021 acetaminophen (TYLENOL) Take two 0 325 mg tablet tablets by mouth every 6 hours as needed for Pain. 06/07/2021 06/08/2021 levoFLOXacin (LEVAQUIN) Take one 1 tablet 0 750 mg tabletIndications: tablet by genitourinary tract mouth every infections 24 hours for 1 day. Indications: an infection of the genitals or urinary tract 06/04/2021 06/04/2021 insulin glargine (LANTUS Inject 15 mL 1 SOLOSTAR U-100 INSULIN) fourteen 100 unit/mL (3 mL) Units under injection PEN the skin at bedtime daily. 06/04/2021 06/07/2021 gabapentin (NEURONTIN) Take two 90 capsule 1 100 mg capsule capsules by mouth daily with breakfast AND one capsule at bedtime daily. 06/09/2021 07/06/2021 aspirin EC 81 mg tablet Take one 90 tablet 0 tablet by mouth twice daily for 27 days. Take with food. Take twice daily through 07/06, then decrease back to one tablet daily starting on 07/0706/04/2021 06/07/2021 carvediloL (COREG) 3.125 Take one 60 tablet 1 mg tablet tablet by mouth twice daily. Take with food. documented in this encounter Discharge Disposition Code Departure Means Destination Disposition Wheelchair Home Health Care [facility] documented in this encounter Progress Notes * Rose Gomez MD - 06/07/2021 11:26 AM CDT ATTESTATION I personally performed the hunt portions of the E/M visit, discussed case with re sident and concur with resident documentation of history, physical exam, assessm ent, and treatment plan unless otherwise noted. The patient was seen today and remained stable for discharge. The patient discha rged home with assistance from family. Follow up instructions including appointm ents were provided and prescriptions were provided. Patient understands signs to look out for that would require to call a doctor(s) and/or call 911. Left hip periprosthetic fracture secondary to fall, s/p ORIF with residual motor weakness, reduced activity tolerance, poor endurance, impaired balance, reduced WB status and ROM resulting in impaired mobility/ADLs, gait abnormality. Patie nt met overall goal of mod I with wheelchair, ramp, hospital bed at household le luann by time of rehab discharge. Discharge home today with PT/OT/RN. Patient knows to follow up with Orthopedic Surgery, PM&R, Endocrinology, PCP. Patient knows not to return to work or driving until cleared by outpatient physi cians. Patient knows TTWB LLE precautions. Family training was completed for wound care. Staff name: Rose Gomez MD Date: 06/07/2021 REHABILITATION MEDICINE PROGRESS NOTE Today's Date: 06/07/2021 Admission Date: 06/01/2021 LOS: 6 days Insurance: MEDICARE Date of Admission: 06/01/2021 Active Problems: Principal Problem: Hip fracture (HCC) Active Problems: Type II diabetes mellitus (HCC) Essential hypertension Hypothyroid Hyperlipidemia Class 2 severe obesity due to excess calories with serious comorbidity and bod y mass index (BMI) of 37.0 to 37.9 in adult (HCC) Anxiety CKD (chronic kidney disease) stage 3, GFR 30-59 ml/min (HCC) Dyslipidemia associated with type 2 diabetes mellitus (HCC) CVA (cerebral vascular accident) ([facility]) CAD (coronary artery disease) S/P CABG (coronary artery bypass graft) Left foot drop Thrombocytopenia ([facility]) Impaired mobility and ADLs Impaired functional mobility, balance, gait, and endurance Assessment & Plan Tanja Deal is a 71 y.o. female admitted to [facility] on 06/01/2021 with the following issues: left hip fracture status post arthroplasty Rehabilitation: Patient will continue with comprehensive therapies including phy sical therapy, occupational therapy, speech & language pathology and additional specialized rehab therapies, half-way, neuropsychology and PM&R physician oversight. Goals: at wheelchair level, household mobility, Modified independent, Achieved Recommended therapy after discharge: Home with Assistance, and, Home Health Sett ing Recommended equipment: Hospital bed, Wheelchair - Manual, Wheelchair cushion Due to patients functional limitations they require a manual wheelchair for i ndependent mobility in the home. A therapy evaluation was completed during their inpatient rehab stay to assess the most appropriate wheelchair for the patient. Patient requires hospital bed at discharge. Patient requires the head of the bed to be elevated more than 30 degrees most of the time due to congestive heart fa ilure, chronic pulmonary disease or problems with aspiration. Tentative discharge date: 06/07/2021 Daily Functional Update: Transfers Transfer: Assistive Device: Roller Walker (06/04/2021 3:00 PM) Transfer: Sit to stand assist level: Modified independent (06/06/2021 2:15 PM) Transfer: Stand pivot assist level: Modified independent (06/06/2021 2:15 PM) No data recorded Gait/ Mobility Gait: Assistive Device: Roller Walker (06/02/2021 4:00 PM) GAIT: Assist Level: Minimum assistance (06/02/2021 9:00 AM) Gait Distance: 4 feet (06/02/2021 4:00 PM) Wheelchair: Distance: 200 feet (200) (06/06/2021 2:15 PM) Wheelchair: Assistance Level: Modified independent (device) (06/06/2021 2:15 PM) Toileting Toileting Assist: Stand By Assist (06/03/2021 3:00 PM) Toileting Equipment: Grab bar - left (06/03/2021 3:00 PM) Toilet Transfer Assist: Stand by assistance (06/03/2021 3:00 PM) Dressing LE Dressing Assist: Modified Independent (06/06/2021 1:00 PM) UE Dressing Assist: Independent (06/06/2021 8:00 AM) Rehabilitation Plan & Recommendations: Left hip periprosthetic fracture secondary to fall, s/p ORIF 05/[address] Wu Impairments: motor weakness, reduced activity tolerance, poor endurance, impaire d balance, reduced WB status and ROM Impaired transfers, impaired ADLs, impaired mobility, impaired ambulation, at hi gh risk of falls due to impaired mobility and gait abnormality >consult PT and OT to address functional and mobility deficits > consult ST to r/o cognitive impairment > LLE TTWB > Lovenox (reduced dose due to CKD) post-op DVT ppx > per Ortho ASA 81mg BID x4 weeks at discharge > per Ortho: Leave dressings in place until follow up appointment unless saturated then ok to replace with 4x4 gauze and tegaderm/hypafix. If any new drainage seen or concerns for infection, please contact Dr. Wu's office @ [phone] or Alma Rosa Jaramillo PAC, [phone] > F/u with Dr. 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 asa,rosuvastatin,Aldactone,and zetia > Coreg reduced to 3.125 on 05/30 due to hypotension Uncontrolled T2DM - A1c 8.2% > continue with HDCF and Lantus, Endocrinology to consult Concern for osteoporosis with pathologic fracture Hypovitaminosis D > f/u Vit D level > continue Vit D supplementation Acute pain/pain management > heat / ice PRN, tylenol scheduled >topicals PRN, lidoderm patch > oxycodone 5mg q4h while awake > Gabapentin 100mg qhs and 200mg daily > Robaxin 500mg TID PRN Gout, stable > continue PALLET STONE POSITIONER Allopurinol and colchicine daily prn Acute blood loss anemia, post-operative Thrombocytopenia likely due to CLL - CL diagnosis 2 months ago at OSH Hem/Onc >CTM daily CBC >transfusion threshold per protocol Hb <7.0, Plts < 10 Acute Kidney Injury (BANG) superimposed by CKD stage III Hypothyroidism > Continue PALLET STONE POSITIONER Levothyroxine > CTM daily BMP > replace electrolytes as needed > encourage PO intake Insomnia Anxiety >Melatonin QHS, Trazodone QHS PRN > Holding 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 Skin/MSK: Considering patient's debility and immobility CTM for skin breakdown, encourage patient to monitor. Code: Full code Nutrition: Nutritional Diet: Diabetic (Standard) consistent carb DVT Prophylaxis: Code Status: Full Code Subjective Data: Patient seen and examined in the morning with attending physician. Patient is re soledad to discharge today. Chart reviewed, technical solutions consultant notes and therapy notes vickey olivares RN at bedside. Discussed wound care and education on incision. No acute syd nts overnight reported by the patient or by nursing staff. Pain under control with current regimen. She is using mostly tylenol and we disc ussed using Robaxin and oxycodone PRN untl next appt with ortho. Objective Data: Vital Signs: Last Filed Vital Signs: 24 Claire r Range BP: 131/47 (06/07 427) Temp: 36.9 C (98.4 F) (06/07 427) Pulse: 79 (06/07 427) Respirations: 19 PER MINUTE (06/07 427) SpO2: 96 % (06/07 427) BP: (128-139)/(44-49) Temp: [36.9 C (98.4 F)] Pulse: [70-79] Respirations: [18 PER MINUTE-19 PER MINUTE] SpO2: [95 %-96 %] Vitals: 06/01/21 1321 06/07/21 0427 Weight: 91.2 kg (201 lb) 92.3 kg (203 lb 7.8 oz) Intake/Output Summary: (Last 24 hours) No intake or output data in the 24 hours ending 06/07/21 1306 Stool Occurrence: 1 Oral Diet Order: Diabetic [id number] Kcal/day (60 g carb/meal, 30 g carb/HS snack ) Last Bowel Movement Date: 06/07/21 Radiology Reviewed Medications acetaminophen (TYLENOL) tablet 650 mg, 650 mg, Oral, Q6H while awake allopurinoL (ZYLOPRIM) tablet 300 mg, 300 mg, Oral, QDAY aspirin EC tablet 81 mg, 81 mg, Oral, QDAY carvediloL (COREG) tablet 3.125 mg, 3.125 mg, Oral, BID cholecalciferol (VITAMIN D-3) tablet 5,000 Units, 5,000 Units, Oral, QDAY docusate (COLACE) capsule 100 mg, 100 mg, Oral, BID enoxaparin (LOVENOX) syringe 40 mg, 40 mg, Subcutaneous, QDAY(21) ezetimibe (ZETIA) tablet 10 mg, 10 mg, Oral, QDAY gabapentin (NEURONTIN) capsule 100 mg, 100 mg, Oral, QHS gabapentin (NEURONTIN) capsule 200 mg, 200 mg, Oral, QDAY insulin aspart (U-100) (NOVOLOG FLEXPEN U-100 INSULIN) injection PEN 0-6 Units, 0-6 Units, Subcutaneous, ACHS (22) insulin glargine (LANTUS SOLOSTAR U-100 INSULIN) injection PEN 10 Units, 10 Unit s, Subcutaneous, QHS(22) levoFLOXacin (LEVAQUIN) tablet 750 mg, 750 mg, Oral, Q24H* levothyroxine (SYNTHROID) tablet 88 mcg, 88 mcg, Oral, QDAY lidocaine (LIDODERM) 5 % topical patch 1 patch, 1 patch, Topical, QDAY melatonin (MELATIN) tablet 3 mg, 3 mg, Oral, QHS metFORMIN (GLUCOPHAGE) tablet 1,000 mg, 1,000 mg, Oral, BID w/meals pantoprazole DR (PROTONIX) tablet 40 mg, 40 mg, Oral, QDAY(21) rosuvastatin (CRESTOR) tablet 40 mg, 40 mg, Oral, QDAY senna (SENOKOT) tablet 2 tablet, 2 tablet, Oral, QHS sertraline (ZOLOFT) tablet 100 mg, 100 mg, Oral, QDAY SITagliptin (JANUVIA) tablet 100 mg, 100 mg, Oral, QDAY albuterol 0.083% Q4H PRN, aluminum/magnesium hydroxide Q4H PRN, bisacodyL QDAY P RN, colchicine QDAY PRN, hydrOXYzine TID PRN, methocarbamoL Q8H PRN, milk of mag nesia (CONC) Q4H PRN, ondansetron Q6H PRN, oxyCODONE Q4H while awake PRN, simeth icone Q6H PRN, traZODone QHS PRN Labs Results for orders placed or performed during the hospital encounter of 06/01/21 (from the past 24 hour(s)) POC GLUCOSE Collection Time: 06/06/21 4:59 PM # # Low-High Glucose, POC 121 (H) 70 - 100 MG/DL POC GLUCOSE Collection Time: 06/06/21 9:56 PM # # Low-High Glucose, POC 132 (H) 70 - 100 MG/DL CBC CELLULAR THERAPEUTICS Collection Time: 06/07/21 8:00 AM # # Low-High White Blood Cells 9.5 4.5 - 11.0 K/UL RBC 2.98 (L) 4.0 - 5.0 M/UL Hemoglobin 9.4 (L) 12.0 - 15.0 GM/DL Hematocrit 28.6 (L) 36 - 45 % MCV 96.0 80 - 100 FL MCH 31.5 26 - 34 PG MCHC 32.8 32.0 - 36.0 G/DL RDW 19.9 (H) 11 - 15 % Platelet Count 265 150 - 400 K/UL MPV 7.9 7 - 11 FL BASIC METABOLIC PANEL CELLULAR THERAPEUTICS Collection Time: 06/07/21 8:00 AM # # Low-High Sodium 139 137 - 147 MMOL/L Potassium 3.7 3.5 - 5.1 MMOL/L Chloride 103 98 - 110 MMOL/L CO2 29 21 - 30 MMOL/L Anion Gap 7 3 - 12 Glucose 118 (H) 70 - 100 MG/DL Blood Urea Nitrogen 15 7 - 25 MG/DL Creatinine 0.98 0.4 - 1.00 MG/DL Calcium 8.9 8.5 - 10.6 MG/DL eGFR Non 56 (L) >60 mL/min eGFR >60 >60 mL/min POC GLUCOSE Collection Time: 06/07/21 8:15 AM # # Low-High Glucose, POC 99 70 - 100 MG/DL Physical Exam: GEN: calm, NAD HEENT: normocephalic and atraumatic head NECK: supple CHEST: on RA ABD: no visible distension SKIN: no visible gross lesions EXT: no significant RLE edema. incision left femur c/d/i, mild tttp, no erythema , soft compartments Chart reviewed. Vitals signs, labs, rehab therapy notes and technical solutions consultant's notes rachel nevarez. Case discussed with attending physician. Javon Richter M.D. Physical Medicine and Rehabilitation (PM&R) Resident Physician * Brenda Choi RN - 06/07/2021 10:42 AM CDT Tanja Wang "Freda" Say discharged on 06/07/2021. . Discharge instructions reviewed with patient. Valuables returned: Personal Items / Valuables: Eyeglasses/Contacts, Cell Phone Denture Type: Partial upper. Home medications: . Functional assessment at discharge complete: Yes . * Smith Coe PT - 06/06/2021 2:15 PM CDT PHYSICAL THERAPY 06/06/21 1415 Transfers Transfer: Sit to stand assist level Modified independent Transfer: Sit to stand type of assist Follows precautions Transfer: Stand to sit assist level Modified independent Transfer: Stand to sit type of assist Follows precautions Transfer: Stand pivot assist level Modified independent Transfer: Stand pivot type of assist Follows precautions Wheelchair Wheelchair: Distance 200 feet (200) Wheelchair: Assistance Level Modified independent (device) Wheelchair: Propulsion Method Bilateral upper extremity;Right lower extremity;Ma nual wheelchair Activity PT Therapeutic Activities Outdoor wheelchair mobility over uneven ground Assessment Assessment Patient requested to go outside. She is currently modified independe nt with all mobiltiy Smith Coe DPT, PT * Marilee Rodriguez, OT - 06/06/2021 1:00 PM CDT OCCUPATIONAL THERAPY 06/06/21 1300 Precautions L LE Precautions LLE Toe Touch Weight Bearing Cognitive Orientation Oriented x4 Patient Behavior Calm;Cooperative Cognition Follows Commands Subjective Subjective OT session covered adaptive equipment for lower body dressing and bat eduardo. Pt stating, "I'm so thankful. I wasn't sure how I was going to do it at home." Bathing Bathing Equipment Long handled bath sponge Bathing Comments OT issued long handled bath sponge for bathing LLE with increas ed ease. Pt was in agreement. Lower Body Dressing LE Dressing Assist Modified Independent Lower Dressing Position Sitting in chair Lower Dressing Garments/Equipment Elastic shoe laces;Arch Support Maker;Shoe horn - extra l tony;Sock aide Lower Dressing Comments Pt donning/doffing B socks and slip-on shoes with adapti ve equipment consisting of boat dispatcher, sock aide and long shoe horn. Pt stating th at she also has tie shoes at home. Elastic shoelaces were provided with instruc tions on use. Transfers Transfer: Assistive Device (Wheelchair) Transfer: Sit to stand assist level Modified independent Transfer: Sit to stand type of assist Follows precautions Transfer: Stand to sit assist level Modified independent Transfer: Stand to sit type of assist Follows precautions Transfer: Stand pivot assist level Modified independent Transfer: Stand pivot type of assist Follows precautions Assessment Assessment Pt demonstrating independence in lower body dressing through the use of adaptive equipment. Plan Plan Comments DC to home tomorrow. Education Persons Educated Patient Barriers To Learning None Noted Teaching Methods Verbal Instruction;Demonstration;Provided Printed Instructions Patient Response Verbalized Understanding;Return Demonstration Topics ADL Compensatory Techniques;Adaptive Devices for ADLs Weekly Goals Patient Will Perform Bathing Modified Independent;w/ Supervision/Safety;Met Patient Will Perform LE Dressing w/ Modified Independent;w/ Adaptive Equipment;M et Patient Will Perform Grooming in Wheelchair;Independently;Met Pt Will Perform All Functional Transfers Independent;Met Goals for the stay Pt will perform basic care and transfer with Modified independence;Progressing;A dequate for discharge;Achieved Marilee Rodriguez OTR * Smith Coe, PT - 06/06/2021 10:00 AM CDT PHYSICAL THERAPY 06/06/21 1000 Bed Mobility Bed Mobility: Supine to sit assist level Independent Bed Mobility: Supine to sit type of assist No rail;With head of bed flat Bed Mobility: Sit to Supine Assist Level Independent Bed Mobility: Sit to supine type of assist No rail;With head of bed flat Transfers Transfer: Assistive Device (Wheelchair) Transfer: Sit to stand assist level Modified independent Transfer: Sit to stand type of assist Follows precautions Transfer: Stand to sit assist level Modified independent Transfer: Stand to sit type of assist Follows precautions Transfer: Stand pivot assist level Modified independent Transfer: Stand pivot type of assist Follows precautions Wheelchair Wheelchair: Distance 589 feet Wheelchair: Assistance Level Modified independent (device) Wheelchair: Propulsion Method Bilateral upper extremity Wheelchair: Door Management Modified independent Wheelchair: Stairs Management Minimum assistance Outcome Measures 6 Minute Walk: Feet in 6 Minutes 589 6 Minute Walk: Device Used Wheelchair, Modified independent. SHY. RLE Assessment Assessment Six minute wheelchair test improved almost 100' demonstrating a signi ficant improvement in endurance. Patient is modified independent for transfer a nd wheelchair mobility. She did need min assist to get up ramp in [place]. Patient will have some to assist with inclines if needed. She will be only going househ old distances in the wheelchair. Plan Comments DC QI, increase LLE knee and ankle ROM, locate pt's cane and night spli nt from acute hosptial, plan for car transfer, car transfer if family is present Recommendations PT Discharge Recommendations Home with Assistance;and;Home Health Setting Weekly Goals Patient will perform sit to supine with Modified independent;Achieved Patient will perform supine to sit with Modified independent;Achieved Patient will complete sit to stand transfer with Modified independent;Achieved Patient will complete stand to sit transfer with Modified independent;Achieved Patient will complete stand pivot transfer with Modified independent;Achieved Patient will propel manual wheelchair up and down ramp with Minimum assistance;A chieved Patient will propel manual wheelchair on level surfaces with Modified Independen ce;Achieved Patient will manage doors in wheelchair with Modified independence;Achieved Patient will demo/request pressure relief Achieved Goal(s) for the Stay Patient will perform at wheelchair level;household mobility;Modified independent ;Achieved Smith Coe DPT, PT * Heydi Marques MD - 06/06/2021 9:45 AM CDT Endocrinology Progress note Chart reviewed today, patient was not seen. Blood glucose values reviewed. Glucose, POC Date/Time Value Ref Range Status 06/06/2021 0717 128 (H) 70 - 100 MG/DL Final 06/05/2021 2143 115 (H) 70 - 100 MG/DL Final 06/05/2021 1648 124 (H) 70 - 100 MG/DL Final 06/05/2021 1135 130 (H) 70 - 100 MG/DL Final 06/05/2021 0717 104 (H) 70 - 100 MG/DL Final 06/04/2021 2236 105 (H) 70 - 100 MG/DL Final 06/04/2021 1655 143 (H) 70 - 100 MG/DL Final 06/04/2021 1157 115 (H) 70 - 100 MG/DL Final Assessment: AM glucose at goal Prandial Glucose at goal Goal blood glucose 100-140 fasting and 140-180 during the day while inpatient. Plan: No new changes today Diabetes discharge recommendations Non-Insulin Medications: ok to resume home henna kapadia - d/[facility] re[facility] orde rs of metformin and sitagliptin Insulin: NCM worked with patient -she can afford box of Lantus. Lantus 10u da renetta Medication affordability: NCM assisting Supplies: See DM Ed note for details and any specific orders (from 06/04) Follow up: requested at [facility] DM - below Future Appointments Date Time Provider Department Center 07/15/2021 9:40 AM Shona Patricio MD [id number] 08/30/2021 9:20 AM Smith Crocker MD [facility]NEPHRO Endocrine will continue to follow Please page the [facility] Endo listed if any questions/concerns * Apryl Richter MD - 06/06/2021 8:12 AM CDT REHABILITATION MEDICINE PROGRESS NOTE Today's Date: 06/06/2021 Admission Date: 06/01/2021 LOS: 5 days Insurance: MEDICARE Date of Admission: 06/01/2021 Active Problems: Principal Problem: Hip fracture (HCC) Active Problems: Type II diabetes mellitus (HCC) Essential hypertension Hypothyroid Hyperlipidemia Class 2 severe obesity due to excess calories with serious comorbidity and bod y mass index (BMI) of 37.0 to 37.9 in adult (HCC) Anxiety CKD (chronic kidney disease) stage 3, GFR 30-59 ml/min (HCC) Dyslipidemia associated with type 2 diabetes mellitus (HCC) CVA (cerebral vascular accident) ([facility]) CAD (coronary artery disease) S/P CABG (coronary artery bypass graft) Left foot drop Thrombocytopenia ([facility]) Impaired mobility and ADLs Impaired functional mobility, balance, gait, and endurance Assessment & Plan Tanja Deal is a 71 y.o. female admitted to [facility] on 06/01/2021 with the following issues: left hip fracture status post arthroplasty Rehabilitation: Patient will continue with comprehensive therapies including phy sical therapy, occupational therapy, speech & language pathology and additional specialized rehab therapies, half-way, neuropsychology and PM&R physician oversight. Goals: at wheelchair level, household mobility, Modified independent Recommended therapy after discharge: Home with Assistance, and, Home Health Sett ing Recommended equipment: Hospital bed, Wheelchair - Manual, Wheelchair cushion Due to patients functional limitations they require a manual wheelchair for i ndependent mobility in the home. A therapy evaluation was completed during their inpatient rehab stay to assess the most appropriate wheelchair for the patient. Patient requires hospital bed at discharge. Patient requires the head of the bed to be elevated more than 30 degrees most of the time due to congestive heart fa ilure, chronic pulmonary disease or problems with aspiration. Tentative discharge date: 06/07/2021 Daily Functional Update: Transfers Transfer: Assistive Device: Roller Walker (06/04/2021 3:00 PM) Transfer: Sit to stand assist level: Modified independent (06/04/2021 3:00 PM) Transfer: Stand pivot assist level: Modified independent (06/04/2021 3:00 PM) No data recorded Gait/ Mobility Gait: Assistive Device: Roller Walker (06/02/2021 4:00 PM) GAIT: Assist Level: Minimum assistance (06/02/2021 9:00 AM) Gait Distance: 4 feet (06/02/2021 4:00 PM) Wheelchair: Distance: 75 feet (x2) (06/04/2021 3:00 PM) Wheelchair: Assistance Level: Modified independent (extra time) (06/04/2021 3:00 PM) Toileting Toileting Assist: Stand By Assist (06/03/2021 3:00 PM) Toileting Equipment: Grab bar - left (06/03/2021 3:00 PM) Toilet Transfer Assist: Stand by assistance (06/03/2021 3:00 PM) Dressing LE Dressing Assist: Moderate Assist (06/02/2021 12:15 PM) UE Dressing Assist: Stand By Assist (06/02/2021 12:15 PM) Rehabilitation Plan & Recommendations: Left hip periprosthetic fracture secondary to fall, s/p ORIF 05/[address] Wu Impairments: motor weakness, reduced activity tolerance, poor endurance, impaire d balance, reduced WB status and ROM Impaired transfers, impaired ADLs, impaired mobility, impaired ambulation, at hi gh risk of falls due to impaired mobility and gait abnormality >consult PT and OT to address functional and mobility deficits > consult ST to r/o cognitive impairment > LLE TTWB > Lovenox (reduced dose due to CKD) post-op DVT ppx > per Ortho ASA 81mg BID x4 weeks at discharge > per Ortho: Leave dressings in place until follow up appointment unless saturated then ok to replace with 4x4 gauze and tegaderm/hypafix. If any new drainage seen or concerns for infection, please contact Dr. Wu's office @ [phone] or Alma Rosa Jaramillo [facility], [phone] > F/u with Dr. 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 asa,rosuvastatin,Aldactone,and zetia > Coreg reduced to 3.125 on 05/30 due to hypotension Uncontrolled T2DM - A1c 8.2% > continue with HDCF and Lantus, Endocrinology to consult Concern for osteoporosis with pathologic fracture Hypovitaminosis D > f/u Vit D level > continue Vit D supplementation Acute pain/pain management > heat / ice PRN, tylenol scheduled >topicals PRN, lidoderm patch > oxycodone 5mg q4h while awake > Gabapentin 100mg qhs and 200mg daily > Robaxin 500mg TID PRN Gout, stable > continue PALLET [employer]ER Allopurinol and colchicine daily prn Acute blood loss anemia, post-operative Thrombocytopenia likely due to CLL - CL diagnosis 2 months ago at OSH Hem/Onc >CTM daily CBC >transfusion threshold per protocol Hb <7.0, Plts < 10 Acute Kidney Injury (BANG) superimposed by CKD stage III Hypothyroidism > Continue PALLET [employer] POSITIONER Levothyroxine > CTM daily BMP > replace electrolytes as needed > encourage PO intake Insomnia Anxiety >Melatonin QHS, Trazodone QHS PRN > Holding 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 Skin/MSK: Considering patient's debility and immobility CTM for skin breakdown, encourage patient to monitor. Code: Full code Nutrition: Nutritional Diet: Diabetic (Standard) consistent carb DVT Prophylaxis: enoxaparin (LOVENOX) syringe 40 mg QDAY() Code Status: Full Code Subjective Data: Pt seen by bedside. Denies n/v, dizziness,SOA, chest pain. No issues overnight. Reports that she is doing well. Discussed wound care management. Objective Data: Vital Signs: Last Filed Vital Signs: 24 Claire r Range BP: 134/39 (06/06 354) Temp: 36.8 C (98.2 F) (06/06 354) Pulse: 72 (06/06 354) Respirations: 18 PER MINUTE (06/06 354) SpO2: 97 % (06/06 354) BP: (127-141)/(39-53) Temp: [36.3 C (97.3 F)-36.8 C (98.2 F)] Pulse: [67-82] Respirations: [18 PER MINUTE] SpO2: [94 %-97 %] Vitals: 06/01/21 1321 Weight: 91.2 kg (201 lb) Intake/Output Summary: (Last 24 hours) Intake/Output Summary (Last 24 hours) at 06/06/2021 0815 Last data filed at 06/06/2021 0348 Gross per 24 hour Intake 900 ml Output 1300 ml Net -400 ml Stool Occurrence: 1 Oral Diet Order: Diabetic 5542-1837 Kcal/day (60 g carb/meal, 30 g carb/HS snack ) Last Bowel Movement Date: 06/04/21 Radiology Reviewed Medications acetaminophen (TYLENOL) tablet 650 mg, 650 mg, Oral, Q6H while awake allopurinoL (ZYLOPRIM) tablet 300 mg, 300 mg, Oral, QDAY aspirin EC tablet 81 mg, 81 mg, Oral, QDAY carvediloL (COREG) tablet 3.125 mg, 3.125 mg, Oral, BID cholecalciferol (VITAMIN D-3) tablet 5,000 Units, 5,000 Units, Oral, QDAY docusate (COLACE) capsule 100 mg, 100 mg, Oral, BID enoxaparin (LOVENOX) syringe 40 mg, 40 mg, Subcutaneous, QDAY(21) ezetimibe (ZETIA) tablet 10 mg, 10 mg, Oral, QDAY gabapentin (NEURONTIN) capsule 100 mg, 100 mg, Oral, QHS gabapentin (NEURONTIN) capsule 200 mg, 200 mg, Oral, QDAY insulin aspart (U-100) (NOVOLOG FLEXPEN U-100 INSULIN) injection PEN 0-6 Units, 0-6 Units, Subcutaneous, ACHS (22) insulin glargine (LANTUS SOLOSTAR U-100 INSULIN) injection PEN 10 Units, 10 Unit s, Subcutaneous, QHS(22) levoFLOXacin (LEVAQUIN) tablet 750 mg, 750 mg, Oral, Q24H* levothyroxine (SYNTHROID) tablet 88 mcg, 88 mcg, Oral, QDAY lidocaine (LIDODERM) 5 % topical patch 1 patch, 1 patch, Topical, QDAY melatonin (MELATIN) tablet 3 mg, 3 mg, Oral, QHS metFORMIN (GLUCOPHAGE) tablet 1,000 mg, 1,000 mg, Oral, BID w/meals pantoprazole DR (PROTONIX) tablet 40 mg, 40 mg, Oral, QDAY(21) rosuvastatin (CRESTOR) tablet 40 mg, 40 mg, Oral, QDAY senna (SENOKOT) tablet 2 tablet, 2 tablet, Oral, QHS sertraline (ZOLOFT) tablet 100 mg, 100 mg, Oral, QDAY SITagliptin (JANUVIA) tablet 100 mg, 100 mg, Oral, QDAY albuterol 0.083% Q4H PRN, aluminum/magnesium hydroxide Q4H PRN, bisacodyL QDAY P RN, colchicine QDAY PRN, hydrOXYzine TID PRN, methocarbamoL Q8H PRN, milk of mag nesia (CONC) Q4H PRN, ondansetron Q6H PRN, oxyCODONE Q4H while awake PRN, simeth icone Q6H PRN, traZODone QHS PRN Labs Results for orders placed or performed during the hospital encounter of 06/01/21 (from the past 24 hour(s)) POC GLUCOSE Collection Time: 06/05/21 11:35 AM # # Low-High Glucose, POC 130 (H) 70 - 100 MG/DL POC GLUCOSE Collection Time: 06/05/21 4:48 PM # # Low-High Glucose, POC 124 (H) 70 - 100 MG/DL POC GLUCOSE Collection Time: 06/05/21 9:43 PM # # Low-High Glucose, POC 115 (H) 70 - 100 MG/DL POC GLUCOSE Collection Time: 06/06/21 7:17 AM # # Low-High Glucose, POC 128 (H) 70 - 100 MG/DL Physical Exam: GEN: calm, NAD HEENT: normocephalic and atraumatic head NECK: supple CHEST: on RA ABD: no visible distension SKIN: no visible gross lesions EXT: no significant RLE edema. incision left femur c/d/i, mild tttp, no erythema , soft compartments PSYCH: mood and affect appropriate NEURO: speech is clear, EOM conjugated and intact * Marilee Rodriguez OT - 06/06/2021 8:00 AM CDT OCCUPATIONAL THERAPY 06/06/21 0800 Precautions L LE Precautions LLE Toe Touch Weight Bearing Subjective Subjective Pt was pleasant and cooperative throughout OT session. She reports l ooking forward to discharge. Pt requesting help for donning socks after shower. When questioned, pt reports that donning socks has not been addressed in inpat ient rehab. OT will address with patient today. Grooming Grooming - Wash Face Assist No Grooming - [place] Teeth Assist No Grooming - Wash Both Hands Assist No Grooming - Comb/[place] Hair Assist No Grooming Assist Independent Grooming Position Sitting in chair Bathing Bath/Shower Soap and water shower/bath Bathing - Chest Assist No Bathing - Left Arm Assist No Bathing - Right Arm Assist No Bathing - Abdomen Assist No Bathing - Perineal Area Assist No Bathing - Buttocks Assist No Bathing - Left Upper Leg Assist No Bathing - Right Upper Leg Assist No Bathing - Left Lower Leg Including Foot Assist No Bathing - Right Lower Leg Including Foot Assist No Bathing Assist Modified Independent Bathing Position Shower - sitting Bathing Equipment Grab bars - left Bathing Comments Performs entire shower while seated on shower bench. Upper Body Dressing UE Dressing Assist Independent Upper Dressing Position Sitting in chair Upper Dressing Comments Pt retrieves clothing at WC level prior to OT's arrival into room. Lower Body Dressing LE Dressing Assist Minimal Assist Lower Dressing Position Standing for ___% of task (20 - to pull pants/briefs over hips) Lower Dressing Comments Donning pants, briefs, and hospital socks. Assist for donning B socks. Assessment Assessment Pt performing shower/dressing and functional transfers at the modifie d independent level with exception of donning B socks. Shoes were not addressed . Plan Plan Comments Review LB dressing with adaptive equipment and issue needed adapt ben equipment prior to DC. Marilee Rodriguez OTR * Heydi Marques MD - 06/05/2021 11:44 AM CDT Endocrinology Consult Admission Date: 06/01/2021 Principal Problem: Hip fracture (HCC) Active Problems: Type II diabetes mellitus (HCC) Essential hypertension Hypothyroid Hyperlipidemia Class 2 severe obesity due to excess calories with serious comorbidity and bod y mass index (BMI) of 37.0 to 37.9 in adult (HCC) Anxiety CKD (chronic kidney disease) stage 3, GFR 30-59 ml/min (HCC) Dyslipidemia associated with type 2 diabetes mellitus (HCC) CVA (cerebral vascular accident) (HCC) CAD (coronary artery disease) S/P CABG (coronary artery bypass graft) Left foot drop Thrombocytopenia (HCC) Impaired mobility and ADLs Impaired functional mobility, balance, gait, and endurance Tanja Deal is a 71 y.o. female who was admitted with a left periprosthet ic femur fracture with resulting ORIF. The patent has persistent deficits and g oals with PT, OT, and complexity including post operative pain, blood loss anemi a, Hx of HTN, CAD/CABG, CVA, CKD stage III, type 2 DM, now requiring closer pool toring as physical requirements in rehabilitation Reason for consult: Diabetes Mgmt Assessment: Diabetes Mellitus Type 2, Uncontrolled - Dx: 30 years - Follows with PCP (KAILEY zendejas) for diabetes care. 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 Screws placed ([place]). - Hip replacement in March 2021 (Neeta Eduardo) - This admit - fall with left hip periprosthetic fracture - She thinks her mom might have had osteoporosis. - has never received tx for. 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 100mg daily; GFR acceptable - continue metformin 1000mg BID AC while at rehab - [facility] ACHS - POC gluc ACHS - continue statin Diabetes discharge recommendations Non-Insulin Medications: ok to resume xigduo, tradjenta - d/c rehab orders o f metformin and sitagliptin Insulin: NCM worked with patient -she can afford box of Lantus. Lantus 10u d aily Medication affordability: NCM assisting Supplies: See DM Ed note for details and any specific orders (from 06/04) Follow up: requested at [facility] DM - below Thyroid - TSH at goal; continue current levothyroxine dose Vit D deficiency - vit D 41, at goal - continue Vit D for now. Osteoporosis - by definition of hip fracture with fall from standing height Bone health eval as outpatient - f/u requested She lives in [facility]. She'd like to est with BOB chan below. Future Appointments Date Time Provider Department Center 07/15/2021 9:40 AM Shona Patricio MD [id number] 08/30/2021 9:20 AM Smith Crocker MD [email or web address] Thank you for this consult; Endocrine will continue to follow If questions between 8am and 5pm - please page [phone]. Please page Endocrine [facility] after hours. __ History of Present Illness: Tanja Deal is a 71 y.o. female who was admitted with a left periprosthet ic femur fracture with resulting ORIF. The patent has persistent deficits and g oals with PT, OT, and complexity including post operative pain, blood loss anemi a, Hx of CKD stage III, type II DM, now requiring closer monitoring as physical requirements in rehabilitation She is doing well. Tolerating PO. Doing well with PT. Hopes to dc Monday. No c omplaints. ROS: No fevers, chills, sweats, headaches, nausea, emesis, abdominal pain, skin changes. Medical History: Diagnosis Date Anxiety 03/17/2016 Arrhythmia Patient denies Arthritis Back pain Cardiac arrhythmia Chest pain Coronary artery disease Essential hypertension 03/16/2016 Fibromyalgia No current treatment required Gout Heart attack (HCC) 03/14/2016 History of non-ST elevation myocardial infarction (NSTEMI) 03/14/2016 Hyperlipidemia 03/16/2016 Hypothyroid 03/16/2016 Kidney insufficiency 07/09/19 BUN/Cr: 26/1.23 - Monitored by PCP Morbid obesity with BMI of 40.0-44.9, adult ([facility]) 03/17/2016 Neuropathy Patient denies Numbness and tingling in left hand Due to CVA Osteoarthritis Stroke ([facility]) 03/22/2016 RUE weakness Thyroid disease Type II diabetes mellitus ([facility]) 03/16/2016 Managed with metformin & glimepiride Surgical History: Procedure Laterality Date HX HEART CATHETERIZATION 03/2016 Lt Heart Cath With Ventriculogram Left 03/17/2016 Performed by Lenin Coreas MD at 2 [facility] Coronary Angiography N/A 03/17/2016 Performed by Lenin Coreas MD at 2 [facility] BYPASS GRAFT CORONARY ARTERY, SIOBHAN, EVH N/A 03/22/2016 Performed by Demarco Byrd MD at 3 CVOR HIP SURGERY Left 09/09/2016 L hip/ Pelvis - fracture repair ARTHROPLASTY TOTAL KNEE Left 08/28/2019 Performed by Uday Sánchez MD at [facility] OR MANIPULATION KNEE JOINT UNDER GENERAL ANESTHESIA Left 12/18/2019 Performed by Uday Sánchez MD at [facility] OR OPEN TREATMENT WITH INTERNAL FIXATION OF PERIPROSTHETIC LEFT FEMUR FRACTURE Left 05/25/2021 Performed by Raman Wu MD at 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 Tobacco Use Smoking status: Never Smoker Smokeless tobacco: Never Used Vaping Use Vaping Use: Never used Substance and Sexual Activity Alcohol use: Not Currently Alcohol/week: 0.0 standard drinks Drug use: Never Sexual activity: Not on file Other Topics Concern Not on file Social History Narrative Not on file Immunizations (includes history and patient reported): Immunization History Administered Date(s) Administered COVID-19 (MODERNA), mRNA vacc, 100 mcg/0.5 mL (PF) 12/11/2020, 01/08/2021 Flu Vaccine =>65 YO High-Dose (PF) 07/09/2019 Pneumococcal Vaccine(13-[facility] P[facility]/immunocompromised adult) 06/14/2015 Allergies: Prednisone, Lisinopril, and Naproxen Medications: Medications Prior to Admission Medication Sig [DISCONTINUED] acetaminophen (TYLENOL) 325 mg tablet Take two tablets by jose alberto th every 6 hours while awake. albuterol 0.083% (PROVENTIL) 2.5 mg /3 mL (0.083 %) nebulizer solution Inhal e 2.5 mg solution by nebulizer as directed every 4 hours as needed for Wheezing or Shortness of Breath. allopurinol (ZYLOPRIM) 300 mg tablet Take 300 mg by mouth daily. [DISCONTINUED] bisacodyL (DULCOLAX) 10 mg rectal suppository Insert or Apply one suppository to rectal area as directed once for 1 dose. [DISCONTINUED] carvediloL (COREG) 3.125 mg tablet Take one tablet by mouth t wice daily. Take with food. cholecalciferol (VITAMIN D-3) 5000 unit tablet Take 5,000 Units by mouth henri ly. colchicine 0.6 mg tablet Take 0.6 mg by mouth daily as needed. Gout dapagliflozin-metformin (XIGDUO XR) 10-1,000 mg TBph Take 1 tablet by mouth daily. ezetimibe (ZETIA) 10 mg tablet Take one tablet by mouth daily. fish oil /omega-3 fatty acids (SEA-OMEGA) 340/1000 mg capsule Take 2,000 mg by mouth twice daily. [DISCONTINUED] gabapentin (NEURONTIN) 100 mg capsule Take two capsules by mo uth daily. [DISCONTINUED] hydrOXYzine HCL (ATARAX) 25 mg tablet Take one tablet by mout h three times daily as needed. [DISCONTINUED] insulin aspart (U-100) (NOVOLOG FLEXPEN U-100 INSULIN) 100 un it/mL (3 mL) injection PEN Inject zero Units to twenty four Units under the skin before meals and 2200. [DISCONTINUED] insulin aspart (U-100) (NOVOLOG FLEXPEN U-100 INSULIN) 100 un it/mL (3 mL) injection PEN Inject eight Units under the skin three times daily w ith meals. [DISCONTINUED] insulin glargine (LANTUS SOLOSTAR U-100 INSULIN) 100 unit/mL (3 mL) injection PEN Inject twenty Units under the skin at bedtime daily. ipratropium/albuterol (COMBIVENT) 103/18 mcg/Actuation inhaler Inhale 2 puff s by mouth into the lungs daily as needed. [DISCONTINUED] levothyroxine (SYNTHROID) 88 mcg tablet Take one tablet by mo uth daily. [DISCONTINUED] lidocaine (LIDODERM) 5 % topical patch Apply one patch topica lly to affected area daily. Apply patch for 12 hours, then remove for 12 hours b efore repeating. Magnesium Oxide 500 mg tab Take 500 mg by mouth twice daily. [DISCONTINUED] methocarbamoL (ROBAXIN) 500 mg tablet Take one tablet by mout h three times daily. [DISCONTINUED] milk of magnesia (CONC) 2,400 mg/10 mL oral suspension Take 1 0 mL by mouth daily. Nivstsbkyjykb-Lp-Wohn-Minerals 18-0.4 mg tab Take 1 tablet by mouth daily. [DISCONTINUED] oxyCODONE (ROXICODONE) 5 mg tablet Take one tablet to two tab lets by mouth every 4 hours as needed oxymetazoline (AFRIN) 0.05 % nasal spray Apply 2 sprays to each nostril as d irected twice daily as needed. [DISCONTINUED] pantoprazole DR (PROTONIX) 40 mg tablet Take one tablet by mo uth daily. rosuvastatin (CRESTOR) 40 mg tablet TAKE 1 TABLET EVERY DAY [DISCONTINUED] senna/docusate (SENOKOT-S) 8.6/50 mg tablet Take two tablets by mouth twice daily. sertraline (ZOLOFT) 100 mg tablet Take 1 tablet by mouth daily. spironolactone (ALDACTONE) 25 mg tablet TAKE 1 TABLET EVERY DAY WITH FOOD vitamins, multiple tablet Take 1 tablet by mouth daily. Physical Exam: Vital Signs: Last Filed In 24 Hours Vital Signs: 24 Hour Range BP: 127/46 (06/05 926) Temp: 36.6 C (97.9 F) (06/05 420) Pulse: 67 (06/05 926) Respirations: 18 PER MINUTE (06/05 420) SpO2: 96 % (06/05 420) BP: (127-134)/(46-71) Temp: [36.6 C (97.9 F)-37.7 C (99.9 F)] Pulse: [64-77] Respirations: [16 PER MINUTE-18 PER MINUTE] SpO2: [95 %-99 %] General: Alert, cooperative, no distress, appears stated age Head: Normocephalic, without obvious abnormality, atraumatic Eyes: Conjunctivae/corneas clear. ENT: Moist mucous membranes Lungs: No respiratory distress Skin: warm and dry Psych: affect appropriate Lab: 24-hour labs: Results for orders placed or performed during the hospital encounter of 06/01/21 (from the past 24 hour(s)) POC GLUCOSE Collection Time: 06/04/21 11:57 AM Result Value Ref Range Glucose, POC 115 (H) 70 - 100 MG/DL URINALYSIS DIPSTICK REFLEX TO CULTURE Collection Time: 06/04/21 12:00 PM Specimen: Urine Result Value Ref Range Color,UA ABELARDO Turbidity,UA 1+ (A) CLEAR-CLEAR Specific [place]-Urine 1.026 1.003 - 1.035 pH,UA 5.0 5.0 - 8.0 Protein,UA 1+ (A) NEG-NEG Glucose,UA NEG NEG-NEG Ketones,UA NEG NEG-NEG Bilirubin,UA NEG NEG-NEG Blood,UA NEG NEG-NEG Urobilinogen,UA INCREASED (A) NORM-NORMAL Nitrite,UA NEG NEG-NEG Leukocytes,UA 2+ (A) NEG-NEG Urine Ascorbic Acid, UA NEG NEG-NEG URINALYSIS MICROSCOPIC REFLEX TO CULTURE Collection Time: 06/04/21 12:00 PM Specimen: Urine Result Value Ref Range WBCs,UA 20-50 0 - 2 /HPF RBCs,UA 2-10 0 - 3 /HPF Comment,UA Criteria for reflex to culture are WBC>10, Positive Nitrite, and/or >=+1 leukocytes. If quantity is not sufficient, an addendum will follow. MucousUA TRACE Squamous Epithelial Cells 0-2 0 - 5 UA REFLEX LABEL Collection Time: 06/04/21 12:00 PM Specimen: Urine Result Value Ref Range UA Reflex Culture Criteria for reflex to culture are WBC>10, Positive Nitrite, and/or >=+1 leukocytes. If quantity is not sufficient, an addendum will follow. POC GLUCOSE Collection Time: 06/04/21 4:55 PM Result Value Ref Range Glucose, POC 143 (H) 70 - 100 MG/DL POC GLUCOSE Collection Time: 06/04/21 10:36 PM Result Value Ref Range Glucose, POC 105 (H) 70 - 100 MG/DL POC GLUCOSE Collection Time: 06/05/21 7:17 AM Result Value Ref Range Glucose, POC 104 (H) 70 - 100 MG/DL CBC CELLULAR THERAPEUTICS Collection Time: 06/05/21 8:06 AM Result Value Ref Range White Blood Cells 14.8 (H) 4.5 - 11.0 K/UL RBC 2.68 (L) 4.0 - 5.0 M/UL Hemoglobin 8.4 (L) 12.0 - 15.0 GM/DL Hematocrit 24.9 (L) 36 - 45 % MCV 93.3 80 - 100 FL MCH 31.2 26 - 34 PG MCHC 33.5 32.0 - 36.0 G/DL RDW 20.7 (H) 11 - 15 % Platelet Count 250 150 - 400 K/UL MPV 8.2 7 - 11 FL BASIC METABOLIC PANEL CELLULAR THERAPEUTICS Collection Time: 06/05/21 8:06 AM Result Value Ref Range Sodium 139 137 - 147 MMOL/L Potassium 3.6 3.5 - 5.1 MMOL/L Chloride 104 98 - 110 MMOL/L CO2 26 21 - 30 MMOL/L Anion Gap 9 3 - 12 Glucose 106 (H) 70 - 100 MG/DL Blood Urea Nitrogen 12 7 - 25 MG/DL Creatinine 0.95 0.4 - 1.00 MG/DL Calcium 8.6 8.5 - 10.6 MG/DL eGFR Non 58 (L) >60 mL/min eGFR >60 >60 mL/min POC GLUCOSE Collection Time: 06/05/21 11:35 AM Result Value Ref Range Glucose, POC 130 (H) 70 - 100 MG/DL Glucose, POC Date/Time Value Ref Range Status 06/05/2021 1135 130 (H) 70 - 100 MG/DL Final 06/05/2021 0717 104 (H) 70 - 100 MG/DL Final 06/04/2021 2236 105 (H) 70 - 100 MG/DL Final 06/04/2021 1655 143 (H) 70 - 100 MG/DL Final 06/04/2021 1157 115 (H) 70 - 100 MG/DL Final 06/04/2021 0741 100 70 - 100 MG/DL Final 06/03/2021 2223 135 (H) 70 - 100 MG/DL Final 06/03/2021 1651 165 (H) 70 - 100 MG/DL Final Radiology and other Diagnostics Review: Pertinent radiology reviewed. Heydi Marques MD [phone] * Apryl Richter MD - 06/05/2021 8:55 AM CDT REHABILITATION MEDICINE PROGRESS NOTE Today's Date: 06/05/2021 Admission Date: 06/01/2021 LOS: 4 days Insurance: MEDICARE Date of Admission: 06/01/2021 Active Problems: Principal Problem: Hip fracture (HCC) Active Problems: Type II diabetes mellitus ([facility]) Essential hypertension Hypothyroid Hyperlipidemia Class 2 severe obesity due to excess calories with serious comorbidity and bod y mass index (BMI) of 37.0 to 37.9 in adult (HCC) Anxiety CKD (chronic kidney disease) stage 3, GFR 30-59 ml/min (HCC) Dyslipidemia associated with type 2 diabetes mellitus (HCC) CVA (cerebral vascular accident) ([facility]) CAD (coronary artery disease) S/P CABG (coronary artery bypass graft) Left foot drop Thrombocytopenia (HCC) Impaired mobility and ADLs Impaired functional mobility, balance, gait, and endurance Assessment & Plan Tanja Deal is a 71 y.o. female admitted to [facility] on 06/01/2021 with the following issues: left hip fracture status post arthroplasty Rehabilitation: Patient will continue with comprehensive therapies including phy sical therapy, occupational therapy, speech & language pathology and additional specialized rehab therapies, half-way, neuropsychology and PM&R physician oversight. Goals: at wheelchair level, household mobility, Modified independent Recommended therapy after discharge: Home with Assistance, and, Home Health Sett ing Recommended equipment: Hospital bed, Wheelchair - Manual, Wheelchair cushion Due to patients functional limitations they require a manual wheelchair for i ndependent mobility in the home. A therapy evaluation was completed during their inpatient rehab stay to assess the most appropriate wheelchair for the patient. Patient requires hospital bed at discharge. Patient requires the head of the bed to be elevated more than 30 degrees most of the time due to congestive heart fa ilure, chronic pulmonary disease or problems with aspiration. Tentative discharge date: 06/07/2021 Daily Functional Update: Transfers Transfer: Assistive Device: Roller Walker (06/04/2021 3:00 PM) Transfer: Sit to stand assist level: Modified independent (06/04/2021 3:00 PM) Transfer: Stand pivot assist level: Modified independent (06/04/2021 3:00 PM) No data recorded Gait/ Mobility Gait: Assistive Device: Roller Walker (06/02/2021 4:00 PM) GAIT: Assist Level: Minimum assistance (06/02/2021 9:00 AM) Gait Distance: 4 feet (06/02/2021 4:00 PM) Wheelchair: Distance: 75 feet (x2) (06/04/2021 3:00 PM) Wheelchair: Assistance Level: Modified independent (extra time) (06/04/2021 3:00 PM) Toileting Toileting Assist: Stand By Assist (06/03/2021 3:00 PM) Toileting Equipment: Grab bar - left (06/03/2021 3:00 PM) Toilet Transfer Assist: Stand by assistance (06/03/2021 3:00 PM) Dressing LE Dressing Assist: Moderate Assist (06/02/2021 12:15 PM) UE Dressing Assist: Stand By Assist (06/02/2021 12:15 PM) Rehabilitation Plan & Recommendations: Left hip periprosthetic fracture secondary to fall, s/p ORIF 05/[address] Wu Impairments: motor weakness, reduced activity tolerance, poor endurance, impaire d balance, reduced WB status and ROM Impaired transfers, impaired ADLs, impaired mobility, impaired ambulation, at hi gh risk of falls due to impaired mobility and gait abnormality >consult PT and OT to address functional and mobility deficits > consult ST to r/o cognitive impairment > LLE TTWB > Lovenox (reduced dose due to CKD) post-op DVT ppx > per Ortho ASA 81mg BID x4 weeks at discharge > per Ortho: Leave dressings in place until follow up appointment unless saturated then ok to replace with 4x4 gauze and tegaderm/hypafix. If any new drainage seen or concerns for infection, please contact Dr. Wu's office @ [phone] or Alma Rosa Jaramillo [facility], [phone] > F/u with Dr. 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 asa,rosuvastatin,Aldactone,and zetia > Coreg reduced to 3.125 on 05/30 due to hypotension Uncontrolled T2DM - A1c 8.2% > continue with HDCF and Lantus, Endocrinology to consult Concern for osteoporosis with pathologic fracture Hypovitaminosis D > f/u Vit D level > continue Vit D supplementation Acute pain/pain management > heat / ice PRN, tylenol scheduled >topicals PRN, lidoderm patch > oxycodone 5mg q4h while awake > Gabapentin 100mg qhs and 200mg daily > Robaxin 500mg TID PRN Gout, stable > continue [employer] Allopurinol and colchicine daily prn Acute blood loss anemia, post-operative Thrombocytopenia likely due to CLL - CL diagnosis 2 months ago at OSH Hem/Onc >CTM daily CBC >transfusion threshold per protocol Hb <7.0, Plts < 10 Acute Kidney Injury (BANG) superimposed by CKD stage III Hypothyroidism > Continue [employer] Levothyroxine > CTM daily BMP > replace electrolytes as needed > encourage PO intake Insomnia Anxiety >Melatonin QHS, Trazodone QHS PRN > Holding 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 Skin/MSK: Considering patient's debility and immobility CTM for skin breakdown, encourage patient to monitor. Code: Full code Nutrition: Nutritional Diet: Diabetic (Standard) consistent carb DVT Prophylaxis: enoxaparin (LOVENOX) syringe 40 mg QDAY() Code Status: Full Code Subjective Data: Pt seen by bedside. Denies n/v, dizziness, issues with B&B. No issues overnight. On ABX for UTI Objective Data: Vital Signs: Last Filed Vital Signs: 24 Claire r Range BP: 133/47 (06/05 420) Temp: 36.6 C (97.9 F) (06/05 420) Pulse: 64 (06/05 420) Respirations: 18 PER MINUTE (06/05 420) SpO2: 96 % (06/05 420) BP: (130-134)/(47-71) Temp: [36.6 C (97.9 F)-37.7 C (99.9 F)] Pulse: [64-77] Respirations: [16 PER MINUTE-18 PER MINUTE] SpO2: [95 %-99 %] Vitals: 06/01/21 1321 Weight: 91.2 kg (201 lb) Intake/Output Summary: (Last 24 hours) Intake/Output Summary (Last 24 hours) at 06/05/2021 0857 Last data filed at 06/05/2021 0726 Gross per 24 hour Intake 240 ml Output 1100 ml Net -860 ml Stool Occurrence: 1 Oral Diet Order: Diabetic [id number] Kcal/day (60 g carb/meal, 30 g carb/HS snack ) Last Bowel Movement Date: 06/04/21 Radiology Reviewed Medications acetaminophen (TYLENOL) tablet 650 mg, 650 mg, Oral, Q6H while awake allopurinoL (ZYLOPRIM) tablet 300 mg, 300 mg, Oral, QDAY aspirin EC tablet 81 mg, 81 mg, Oral, QDAY carvediloL (COREG) tablet 3.125 mg, 3.125 mg, Oral, BID cholecalciferol (VITAMIN D-3) tablet 5,000 Units, 5,000 Units, Oral, QDAY docusate (COLACE) capsule 100 mg, 100 mg, Oral, BID enoxaparin (LOVENOX) syringe 40 mg, 40 mg, Subcutaneous, QDAY(21) ezetimibe (ZETIA) tablet 10 mg, 10 mg, Oral, QDAY gabapentin (NEURONTIN) capsule 100 mg, 100 mg, Oral, QHS gabapentin (NEURONTIN) capsule 200 mg, 200 mg, Oral, QDAY insulin aspart (U-100) (NOVOLOG FLEXPEN U-100 INSULIN) injection PEN 0-6 Units, 0-6 Units, Subcutaneous, ACHS (22) insulin glargine (LANTUS SOLOSTAR U-100 INSULIN) injection PEN 10 Units, 10 Unit s, Subcutaneous, QHS(22) levoFLOXacin (LEVAQUIN) tablet 750 mg, 750 mg, Oral, Q24H* levothyroxine (SYNTHROID) tablet 88 mcg, 88 mcg, Oral, QDAY lidocaine (LIDODERM) 5 % topical patch 1 patch, 1 patch, Topical, QDAY melatonin (MELATIN) tablet 3 mg, 3 mg, Oral, QHS metFORMIN (GLUCOPHAGE) tablet 1,000 mg, 1,000 mg, Oral, BID w/meals pantoprazole DR (PROTONIX) tablet 40 mg, 40 mg, Oral, QDAY(21) rosuvastatin (CRESTOR) tablet 40 mg, 40 mg, Oral, QDAY senna (SENOKOT) tablet 2 tablet, 2 tablet, Oral, QHS sertraline (ZOLOFT) tablet 100 mg, 100 mg, Oral, QDAY SITagliptin (JANUVIA) tablet 100 mg, 100 mg, Oral, QDAY albuterol 0.083% Q4H PRN, aluminum/magnesium hydroxide Q4H PRN, bisacodyL QDAY P RN, colchicine QDAY PRN, hydrOXYzine TID PRN, methocarbamoL Q8H PRN, milk of mag nesia (CONC) Q4H PRN, ondansetron Q6H PRN, oxyCODONE Q4H while awake PRN, simeth icone Q6H PRN, traZODone QHS PRN Labs Results for orders placed or performed during the hospital encounter of 06/01/21 (from the past 24 hour(s)) CBC CELLULAR THERAPEUTICS Collection Time: 06/04/21 9:00 AM # # Low-High White Blood Cells 20.0 (H) 4.5 - 11.0 K/UL RBC 3.04 (L) 4.0 - 5.0 M/UL Hemoglobin 9.5 (L) 12.0 - 15.0 GM/DL Hematocrit 28.8 (L) 36 - 45 % MCV 94.7 80 - 100 FL MCH 31.3 26 - 34 PG MCHC 33.0 32.0 - 36.0 G/DL RDW 20.3 (H) 11 - 15 % Platelet Count 288 150 - 400 K/UL MPV 8.3 7 - 11 FL BASIC METABOLIC PANEL CELLULAR THERAPEUTICS Collection Time: 06/04/21 9:00 AM # # Low-High Sodium 138 137 - 147 MMOL/L Potassium 4.1 3.5 - 5.1 MMOL/L Chloride 104 98 - 110 MMOL/L CO2 27 21 - 30 MMOL/L Anion Gap 7 3 - 12 Glucose 151 (H) 70 - 100 MG/DL Blood Urea Nitrogen 13 7 - 25 MG/DL Creatinine 0.95 0.4 - 1.00 MG/DL Calcium 8.6 8.5 - 10.6 MG/DL eGFR Non 58 (L) >60 mL/min eGFR >60 >60 mL/min POC GLUCOSE Collection Time: 06/04/21 11:57 AM # # Low-High Glucose, POC 115 (H) 70 - 100 MG/DL URINALYSIS DIPSTICK REFLEX TO CULTURE Collection Time: 06/04/21 12:00 PM Specimen: Urine # # Low-High Color,UA ABELARDO Turbidity,UA 1+ (A) CLEAR-CLEAR Specific [place]-Urine 1.026 1.003 - 1.035 pH,UA 5.0 5.0 - 8.0 Protein,UA 1+ (A) NEG-NEG Glucose,UA NEG NEG-NEG Ketones,UA NEG NEG-NEG Bilirubin,UA NEG NEG-NEG Blood,UA NEG NEG-NEG Urobilinogen,UA INCREASED (A) NORM-NORMAL Nitrite,UA NEG NEG-NEG Leukocytes,UA 2+ (A) NEG-NEG Urine Ascorbic Acid, UA NEG NEG-NEG URINALYSIS MICROSCOPIC REFLEX TO CULTURE Collection Time: 06/04/21 12:00 PM Specimen: Urine # # Low-High WBCs,UA 20-50 0 - 2 /HPF RBCs,UA 2-10 0 - 3 /HPF Comment,UA Criteria for reflex to culture are WBC>10, Positive Nitrite, and/or >=+1 leukocytes. If quantity is not sufficient, an addendum will follow. MucousUA TRACE Squamous Epithelial Cells 0-2 0 - 5 UA REFLEX LABEL Collection Time: 06/04/21 12:00 PM Specimen: Urine # # Low-High UA Reflex Culture Criteria for reflex to culture are WBC>10, Positive Nitrite, and/or >=+1 leukocytes. If quantity is not sufficient, an addendum will follow. POC GLUCOSE Collection Time: 06/04/21 4:55 PM # # Low-High Glucose, POC 143 (H) 70 - 100 MG/DL POC GLUCOSE Collection Time: 06/04/21 10:36 PM # # Low-High Glucose, POC 105 (H) 70 - 100 MG/DL POC GLUCOSE Collection Time: 06/05/21 7:17 AM # # Low-High Glucose, POC 104 (H) 70 - 100 MG/DL Physical Exam: GEN: calm, NAD HEENT: normocephalic and atraumatic head NECK: supple CHEST: on RA ABD: no visible distension SKIN: no visible gross lesions EXT: no significant RLE edema. incision left femur c/d/i, mild tttp, no erythema , soft compartments PSYCH: mood and affect appropriate NEURO: speech is clear, EOM conjugated and intact * Heydi Marques MD - 06/04/2021 3:25 PM CDT Endocrinology Consult Admission Date: 06/01/2021 Principal Problem: Hip fracture (HCC) Active Problems: Type II diabetes mellitus (HCC) Essential hypertension Hypothyroid Hyperlipidemia Class 2 severe obesity due to excess calories with serious comorbidity and bod y mass index (BMI) of 37.0 to 37.9 in adult (HCC) Anxiety CKD (chronic kidney disease) stage 3, GFR 30-59 ml/min (HCC) Dyslipidemia associated with type 2 diabetes mellitus (HCC) CVA (cerebral vascular accident) (HCC) CAD (coronary artery disease) S/P CABG (coronary artery bypass graft) Left foot drop Thrombocytopenia (HCC) Impaired mobility and ADLs Impaired functional mobility, balance, gait, and endurance Tanja Deal is a 71 y.o. female who was admitted with a left periprosthet ic femur fracture with resulting ORIF. The patent has persistent deficits and g oals with PT, OT, and complexity including post operative pain, blood loss anemi a, Hx of HTN, CAD/CABG, CVA, CKD stage III, type 2 DM, now requiring closer pool toring as physical requirements in rehabilitation Reason for consult: Diabetes Mgmt Assessment: Diabetes Mellitus Type 2, Uncontrolled - Dx: 30 years - Follows with PCP (KAILEY zendejas) for diabetes care. 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 Screws placed ([place]). - Hip replacement in March 2021 (Neeta Eduardo) - This admit - fall with left hip periprosthetic fracture - She thinks her mom might have had osteoporosis. - has never received tx for. 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 - AM glucose at or near goal - reduce to lantus 14 u daily - d/c prandial insulin - continue sitagliptin - on formulary. 100mg daily; GFR acceptable - continue metformin 1000mg BID AC while at rehab - [facility] ACHS - POC ACHS - continue statin - would benefit from DM ed and teaching. - Case management to [place] affordable basal insulin for patient - she is getting basaglar as samples only and cannot afford it otherwise. Diabetes discharge recommendations Non-Insulin Medications: ok to resume henna kapadia - d/c rehab orders o f metformin and sitagliptin Insulin: NCM worked with patient -she can afford box of Lantus. Final dose T BD Medication affordability: NCM assisting Supplies: See DM Ed note for details and any specific orders (from 06/04) Follow up: requested at [facility] DM - below Thyroid - TSH at goal; continue current levothyroxine dose Vit D deficiency - vit D 41, at goal - continue Vit D for now. Osteoporosis - by definition of hip fracture with fall from standing height Bone health eval as outpatient - f/u requested She lives in [facility]. She'd like to est with BOB peacock - berthat below. Future Appointments Date Time Provider Department Center 07/15/2021 9:40 AM Shona Particio MD [id number] IM 08/30/2021 9:20 AM Smith Crocker MD [email or web address] Thank you for this consult; Endocrine will continue to follow If questions between 8am and 5pm - please page -[phone]. Please page Endocrine Fruit [facility]itter after hours. __ History of Present Illness: Tanja Deal is a 71 y.o. female who was admitted with a left periprosthet ic femur fracture with resulting ORIF. The patent has persistent deficits and g oals with PT, OT, and complexity including post operative pain, blood loss anemi a, Hx of CKD stage III, type II DM, now requiring closer monitoring as physical requirements in rehabilitation She is doing well. Tolerating PO. Doing well with PT. Hopes to dc Monday With grandson today ROS: No fevers, chills, sweats, headaches, nausea, emesis, abdominal pain, skin changes. Medical History: Diagnosis Date Anxiety 03/17/2016 Arrhythmia Patient denies Arthritis Back pain Cardiac arrhythmia Chest pain Coronary artery disease Essential hypertension 03/16/2016 Fibromyalgia No current treatment required Gout Heart attack (HCC) 03/14/2016 History of non-ST elevation myocardial infarction (NSTEMI) 03/14/2016 Hyperlipidemia 03/16/2016 Hypothyroid 03/16/2016 Kidney insufficiency 07/09/19 BUN/Cr: 26/1.23 - Monitored by PCP Morbid obesity with BMI of 40.0-44.9, adult ([facility]) 03/17/2016 Neuropathy Patient denies Numbness and tingling in left hand Due to CVA Osteoarthritis Stroke ([facility]) 03/22/2016 RUE weakness Thyroid disease Type II diabetes mellitus ([facility]) 03/16/2016 Managed with metformin & glimepiride Surgical History: Procedure Laterality Date HX HEART CATHETERIZATION 03/2016 Lt Heart Cath With Ventriculogram Left 03/17/2016 Performed by Lenin Coreas MD at [facility] G[facility] Coronary Angiography N/A 03/17/2016 Performed by Lenin Coreas MD at [facility] BYPASS GRAFT CORONARY ARTERY, SIOBHAN, EVH N/A 03/22/2016 Performed by Demarco Byrd MD at [facility] CVOR HIP SURGERY Left 09/09/2016 L hip/ Pelvis - fracture repair ARTHROPLASTY TOTAL KNEE Left 08/28/2019 Performed by Uday Sánchez MD at [facility] OR MANIPULATION KNEE JOINT UNDER GENERAL ANESTHESIA Left 12/18/2019 Performed by Uday Sánchez MD at [facility] OR OPEN TREATMENT WITH INTERNAL FIXATION OF PERIPROSTHETIC LEFT FEMUR FRACTURE Left 05/25/2021 Performed by Raman Wu MD at 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 Tobacco Use Smoking status: Never Smoker Smokeless tobacco: Never Used Vaping Use Vaping Use: Never used Substance and Sexual Activity Alcohol use: Not Currently Alcohol/week: 0.0 standard drinks Drug use: Never Sexual activity: Not on file Other Topics Concern Not on file Social History Narrative Not on file Immunizations (includes history and patient reported): Immunization History Administered Date(s) Administered COVID-19 (MODERNA), mRNA vacc, 100 mcg/0.5 mL (PF) 12/11/2020, 01/08/2021 Flu Vaccine =>65 YO High-Dose (PF) 07/09/2019 Pneumococcal Vaccine(13-[facility] Peds/immunocompromised adult) 06/14/2015 Allergies: Prednisone, Lisinopril, and Naproxen Medications: Medications Prior to Admission Medication Sig [DISCONTINUED] acetaminophen (TYLENOL) 325 mg tablet Take two tablets by jose alberto th every 6 hours while awake. albuterol 0.083% (PROVENTIL) 2.5 mg /3 mL (0.083 %) nebulizer solution Inhal e 2.5 mg solution by nebulizer as directed every 4 hours as needed for Wheezing or Shortness of Breath. allopurinol (ZYLOPRIM) 300 mg tablet Take 300 mg by mouth daily. [DISCONTINUED] bisacodyL (DULCOLAX) 10 mg rectal suppository Insert or Apply one suppository to rectal area as directed once for 1 dose. [DISCONTINUED] carvediloL (COREG) 3.125 mg tablet Take one tablet by mouth t wice daily. Take with food. cholecalciferol (VITAMIN D-3) 5000 unit tablet Take 5,000 Units by mouth henri ly. colchicine 0.6 mg tablet Take 0.6 mg by mouth daily as needed. Gout dapagliflozin-metformin (XIGDUO XR) 10-1,000 mg TBph Take 1 tablet by mouth daily. ezetimibe (ZETIA) 10 mg tablet Take one tablet by mouth daily. fish oil /omega-3 fatty acids (SEA-OMEGA) 340/1000 mg capsule Take 2,000 mg by mouth twice daily. [DISCONTINUED] gabapentin (NEURONTIN) 100 mg capsule Take two capsules by mo uth daily. [DISCONTINUED] hydrOXYzine HCL (ATARAX) 25 mg tablet Take one tablet by mout h three times daily as needed. [DISCONTINUED] insulin aspart (U-100) (NOVOLOG FLEXPEN U-100 INSULIN) 100 un it/mL (3 mL) injection PEN Inject zero Units to twenty four Units under the skin before meals and 2200. [DISCONTINUED] insulin aspart (U-100) (NOVOLOG FLEXPEN U-100 INSULIN) 100 un it/mL (3 mL) injection PEN Inject eight Units under the skin three times daily w ith meals. [DISCONTINUED] insulin glargine (LANTUS SOLOSTAR U-100 INSULIN) 100 unit/mL (3 mL) injection PEN Inject twenty Units under the skin at bedtime daily. ipratropium/albuterol (COMBIVENT) 103/18 mcg/Actuation inhaler Inhale 2 puff s by mouth into the lungs daily as needed. [DISCONTINUED] levothyroxine (SYNTHROID) 88 mcg tablet Take one tablet by mo ut daily. [DISCONTINUED] lidocaine (LIDODERM) 5 % topical patch Apply one patch topica lly to affected area daily. Apply patch for 12 hours, then remove for 12 hours b efore repeating. Magnesium Oxide 500 mg tab Take 500 mg by mouth twice daily. [DISCONTINUED] methocarbamoL (ROBAXIN) 500 mg tablet [facility]. [DISCONTINUED] milk of magnesia (CONC) 2,400 mg/10 mL oral suspension Take 1 0 mL by mouth daily. Enpksgkmihfup-As-Nswd-Minerals 18-0.4 mg tab Take 1 tablet by mouth daily. [DISCONTINUED] oxyCODONE (ROXICODONE) 5 mg tablet Take one tablet to two tab lets by mouth every 4 hours as needed oxymetazoline (AFRIN) 0.05 % nasal spray Apply 2 sprays to each nostril as d irected twice daily as needed. [DISCONTINUED] pantoprazole DR (PROTONIX) 40 mg tablet Take one tablet by mo [facility] daily. rosuvastatin (CRESTOR) 40 mg tablet TAKE 1 TABLET EVERY DAY [DISCONTINUED] senna/docusate (SENOKOT-S) 8.6/50 mg tablet Take two tablets by mouth twice daily. sertraline (ZOLOFT) 100 mg tablet Take 1 tablet by mouth daily. spironolactone (ALDACTONE) 25 mg tablet TAKE 1 TABLET EVERY DAY WITH FOOD vitamins, multiple tablet Take 1 tablet by mouth daily. Physical Exam: Vital Signs: Last Filed In 24 Hours Vital Signs: 24 Hour Range BP: 122/53 (06/04 818) Temp: 36.5 C (97.7 F) (06/04 818) Pulse: 70 (06/04 1502) Respirations: 16 PER MINUTE (06/04 1502) SpO2: 99 % (06/04 1502) BP: (122-143)/(42-53) Temp: [36.5 C (97.7 F)-36.9 C (98.4 F)] Pulse: [64-73] Respirations: [16 PER MINUTE] SpO2: [97 %-100 %] Intensity Pain Scale (Self Report): 2 (06/04/21 0818) General: Alert, cooperative, no distress, appears stated age Head: Normocephalic, without obvious abnormality, atraumatic Eyes: Conjunctivae/corneas clear. ENT: Moist mucous membranes Lungs: No respiratory distress Skin: warm and dry Psych: affect appropriate Lab: 24-hour labs: Results for orders placed or performed during the hospital encounter of 06/01/21 (from the past 24 hour(s)) POC GLUCOSE Collection Time: 06/03/21 4:51 PM Result Value Ref Range Glucose, POC 165 (H) 70 - 100 MG/DL POC GLUCOSE Collection Time: 06/03/21 10:23 PM Result Value Ref Range Glucose, POC 135 (H) 70 - 100 MG/DL POC GLUCOSE Collection Time: 06/04/21 7:41 AM Result Value Ref Range Glucose, POC 100 70 - 100 MG/DL CBC CELLULAR THERAPEUTICS Collection Time: 06/04/21 9:00 AM Result Value Ref Range White Blood Cells 20.0 (H) 4.5 - 11.0 K/UL RBC 3.04 (L) 4.0 - 5.0 M/UL Hemoglobin 9.5 (L) 12.0 - 15.0 GM/DL Hematocrit 28.8 (L) 36 - 45 % MCV 94.7 80 - 100 FL MCH 31.3 26 - 34 PG MCHC 33.0 32.0 - 36.0 G/DL RDW 20.3 (H) 11 - 15 % Platelet Count 288 150 - 400 K/UL MPV 8.3 7 - 11 FL BASIC METABOLIC PANEL CELLULAR THERAPEUTICS Collection Time: 06/04/21 9:00 AM Result Value Ref Range Sodium 138 137 - 147 MMOL/L Potassium 4.1 3.5 - 5.1 MMOL/L Chloride 104 98 - 110 MMOL/L CO2 27 21 - 30 MMOL/L Anion Gap 7 3 - 12 Glucose 151 (H) 70 - 100 MG/DL Blood Urea Nitrogen 13 7 - 25 MG/DL Creatinine 0.95 0.4 - 1.00 MG/DL Calcium 8.6 8.5 - 10.6 MG/DL eGFR Non 58 (L) >60 mL/min eGFR >60 >60 mL/min POC GLUCOSE Collection Time: 06/04/21 11:57 AM Result Value Ref Range Glucose, POC 115 (H) 70 - 100 MG/DL URINALYSIS DIPSTICK REFLEX TO CULTURE Collection Time: 06/04/21 12:00 PM Specimen: Urine Result Value Ref Range Color,UA ABELARDO Turbidity,UA 1+ (A) CLEAR-CLEAR Specific [place]-Urine 1.026 1.003 - 1.035 pH,UA 5.0 5.0 - 8.0 Protein,UA 1+ (A) NEG-NEG Glucose,UA NEG NEG-NEG Ketones,UA NEG NEG-NEG Bilirubin,UA NEG NEG-NEG Blood,UA NEG NEG-NEG Urobilinogen,UA INCREASED (A) NORM-NORMAL Nitrite,UA NEG NEG-NEG Leukocytes,UA 2+ (A) NEG-NEG Urine Ascorbic Acid, UA NEG NEG-NEG URINALYSIS MICROSCOPIC REFLEX TO CULTURE Collection Time: 06/04/21 12:00 PM Specimen: Urine Result Value Ref Range WBCs,UA 20-50 0 - 2 /HPF RBCs,UA 2-10 0 - 3 /HPF Comment,UA Criteria for reflex to culture are WBC>10, Positive Nitrite, and/or >=+1 leukocytes. If quantity is not sufficient, an addendum will follow. MucousUA TRACE Squamous Epithelial Cells 0-2 0 - 5 Glucose, POC Date/Time Value Ref Range Status 06/04/2021 1157 115 (H) 70 - 100 MG/DL Final 06/04/2021 0741 100 70 - 100 MG/DL Final 06/03/2021 2223 135 (H) 70 - 100 MG/DL Final 06/03/2021 1651 165 (H) 70 - 100 MG/DL Final 06/03/2021 1142 183 (H) 70 - 100 MG/DL Final 06/03/2021 0940 151 (H) 70 - 100 MG/DL Final 06/03/2021 0713 123 (H) 70 - 100 MG/DL Final 06/02/2021 2152 160 (H) 70 - 100 MG/DL Final Radiology and other Diagnostics Review: Pertinent radiology reviewed. Heydi Marques MD [phone] * Destiney Delgado, RT - 06/04/2021 3:03 PM CDT RT Adult Assessment Note NAME:Tanja Deal :1950 AGE: 71 y.o. ADMISSION DATE: 06/01/2021 DAYS ADMITTED: LOS: 3 days RT Treatment Plan: Protocol Plan: Medications Albuterol: Nebulizer PRN Additional Comments: Impressions of the patient: Patient resting comfortably on room air. Intervention(s)/outcome(s): Home regimen. Patient education that was completed: N/A Recommendations to the care team: N/A Vital Signs: Pulse: 70 RR: 16 PER MINUTE SpO2: 99 % O2 Device: Liter Flow: O2%: Breath Sounds: Respiratory Effort: Non-Labored * Josue Burden, PALLET STONE POSITIONER - 06/04/2021 3:00 PM CDT PHYSICAL THERAPY NOTE Name: Tanja Wang "Freda" Say : 1950 Age: 71 y.o. Admission Date: 06/01/2021 LOS: 3 days 06/04/21 1500 Subjective Subjective Patient resting supine in bed upon arrival, reports lower abdominal p ain due to recently diagnosed UTI. Bed Mobility Bed Mobility: Supine to sit assist level Modified independent Bed Mobility: Sit to Supine Assist Level Modified independent Transfers Transfer: Assistive Device Roller Walker Transfer: Sit to stand assist level Modified independent Transfer: Sit to stand type of assist Follows precautions Transfer: Stand to sit assist level Modified independent Transfer: Stand to sit type of assist Follows precautions Transfer: Stand pivot assist level Modified independent Transfer: Stand pivot type of assist Follows precautions Wheelchair Wheelchair: Distance 75 feet (x2) Wheelchair: Assistance Level Modified independent (extra time) Wheelchair: Propulsion Method Bilateral upper extremity;Manual wheelchair Wheelchair Comments Pt managed LLE elevating leg rest attatching/removing withou t assistance. Activity PT Therapeutic Activities Transfer practice bed to/from wheelchair; pt modified independent. Practiced simulated car transfer to/from therapy mat with strategy for getting LLE into/out of car. Pt reports/demos understanding as she had a kne e replacement previously and remembers how to manage in/out of car from that. Assessment Assessment Pt transfering at modified independent level keeping precautions with roller walker and managing wheelchair parts. Pt with good understanding of car transfer; unsure if son will be present during therapy hours for practice into c ar. Plan Comments DC QI, increase LLE knee and ankle ROM, locate pt's cane and night spli nt from acute hosptial, plan for car transfer, car transfer if family is present Therapist: Josue Burden, BRIGITTE Date: 06/04/2021 * Haritha Cornejo, PT - 06/04/2021 1:25 PM CDT PHYSICAL THERAPY NOTE Name: Tanja Wang "Janeen Deal : 1950 Age: 71 y.o. Admission Date: 06/01/2021 LOS: 3 days 06/04/21 1300 Precautions L LE Precautions LLE Toe Touch Weight Bearing Cognitive Orientation Oriented x4 Patient Behavior Appropriate for age Family Behavior Supportive Cognition Follows Commands Range of Motion ROM Comments L knee AROM x 15 reps, ankle pumps x 15 reps Subjective Subjective patient sitting in wheelchair at PT arrival with grandson present. Serene hamlin states that she has been feeling good about transfering independently in h er room last night and this morning, is eager to DC home Bed Mobility Bed Mobility Comments patient in chair at beginning and end of session Transfers Transfer: Assistive Device Roller Walker Transfer: Sit to stand assist level Modified independent Transfer: Sit to stand type of assist Follows precautions Transfer: Stand to sit assist level Modified independent Transfer: Stand to sit type of assist Follows precautions Transfer Comment sit<>Stand repitations at raised therapy mat to simulate standing at counter 3 x 2 minutes each for ring toss. Balance Balance: Standing Dynamic Good Standing Balance 1 UE support;Standby Assist Assessment Assessment grossly MOD I for all trasnfers, SBA for safety for dynamic at raised therapy mat. requires no cues for L LE precautions Therapist: Haritha Cornejo PT, DPT [id number] Date: 06/04/2021 * Cassie Moreno, OT - 06/04/2021 1:00 PM CDT OCCUPATIONAL THERAPY 06/04/21 1301 Subjective Subjective pleasant and agreeable to therapy. no questions/concerns for dc home Transfers Transfer: Assistive Device Roller Walker Transfer: Sit to stand assist level Modified independent Transfer: Sit to stand type of assist Follows precautions Transfer: Stand to sit assist level Modified independent Transfer: Stand to sit type of assist Follows precautions Transfer: Stand pivot assist level Modified independent Transfer: Stand pivot type of assist Follows precautions Activity Therapeutic Activities pt propels self in wheelchair outdoors. requires assist f or navigating changes in elevation. discussed family members can assist for comm unity mobility as needed Assessment Assessment pt mod I in room and able to complete ADL, nearing readiness for disc harge Plan Plan Comments discharge [facility] Cassie Moreno, OTR/L [id number] * Rose Gomez MD - 06/04/2021 9:53 AM CDT ATTESTATION I personally performed the hunt portions of the E/M visit, discussed case with re sident and concur with resident documentation of history, physical exam, assessm ent, and treatment plan unless otherwise noted. WBC 20 today, will complete inf ectious workup. Staff name: Rose Gomez MD Date: 06/04/2021 REHABILITATION MEDICINE PROGRESS NOTE Today's Date: 06/04/2021 Admission Date: 06/01/2021 LOS: 3 days Insurance: MEDICARE Date of Admission: 06/01/2021 Active Problems: Principal Problem: Hip fracture (HCC) Active Problems: Type II diabetes mellitus (HCC) Essential hypertension Hypothyroid Hyperlipidemia Class 2 severe obesity due to excess calories with serious comorbidity and bod y mass index (BMI) of 37.0 to 37.9 in adult (HCC) Anxiety CKD (chronic kidney disease) stage 3, GFR 30-59 ml/min (HCC) Dyslipidemia associated with type 2 diabetes mellitus (HCC) CVA (cerebral vascular accident) (HCC) CAD (coronary artery disease) S/P CABG (coronary artery bypass graft) Left foot drop Thrombocytopenia ([facility]) Impaired mobility and ADLs Impaired functional mobility, balance, gait, and endurance Assessment & Plan Tanja Deal is a 71 y.o. female admitted to [facility] on 06/01/2021 with the following issues: left hip fracture status post arthroplasty Rehabilitation: Patient will continue with comprehensive therapies including phy sical therapy, occupational therapy, speech & language pathology and additional specialized rehab therapies, half-way, neuropsychology and PM&R physician oversight. Goals: at wheelchair level, household mobility, Modified independent Recommended therapy after discharge: Home with Assistance, and, Home Health Sett ing Recommended equipment: Hospital bed, Wheelchair - Manual, Wheelchair cushion Due to patients functional limitations they require a manual wheelchair for i ndependent mobility in the home. A therapy evaluation was completed during their inpatient rehab stay to assess the most appropriate wheelchair for the patient. Patient requires hospital bed at discharge. Patient requires the head of the bed to be elevated more than 30 degrees most of the time due to congestive heart fa ilure, chronic pulmonary disease or problems with aspiration. Tentative discharge date: 06/07/2021 Daily Functional Update: Transfers Transfer: Assistive Device: None;Roller Walker (06/03/2021 3:00 PM) Transfer: Sit to stand assist level: Stand by assistance;Minimum assistance;Mode rate assistance (06/03/2021 3:00 PM) Transfer: Stand pivot assist level: Stand by assistance (06/03/2021 3:00 PM) No data recorded Gait/ Mobility Gait: Assistive Device: Roller Walker (06/02/2021 4:00 PM) GAIT: Assist Level: Minimum assistance (06/02/2021 9:00 AM) Gait Distance: 4 feet (06/02/2021 4:00 PM) Wheelchair: Distance: 75 feet (x2) (06/03/2021 1:30 PM) Wheelchair: Assistance Level: Modified independent (extra time) (06/03/2021 1:30 PM) Toileting Toileting Assist: Stand By Assist (06/03/2021 3:00 PM) Toileting Equipment: Grab bar - left (06/03/2021 3:00 PM) Toilet Transfer Assist: Stand by assistance (06/03/2021 3:00 PM) Dressing LE Dressing Assist: Moderate Assist (06/02/2021 12:15 PM) UE Dressing Assist: Stand By Assist (06/02/2021 12:15 PM) Rehabilitation Plan & Recommendations: Left hip periprosthetic fracture secondary to fall, s/p ORIF 05/[address] Wu Impairments: motor weakness, reduced activity tolerance, poor endurance, impaire d balance, reduced WB status and ROM Impaired transfers, impaired ADLs, impaired mobility, impaired ambulation, at hi gh risk of falls due to impaired mobility and gait abnormality >consult PT and OT to address functional and mobility deficits > consult ST to r/o cognitive impairment > LLE TTWB > Lovenox (reduced dose due to CKD) post-op DVT ppx > per Ortho ASA 81mg BID x4 weeks at discharge > per Ortho: Leave dressings in place until follow up appointment unless saturated then ok to replace with 4x4 gauze and tegaderm/hypafix. If any new drainage seen or concerns for infection, please contact Dr. Wu's office @ [phone] or Alma Rosa Jaramillo PAC, [phone] > F/u with Dr. 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 asa,rosuvastatin,Aldactone,and zetia > Coreg reduced to 3.125 on 05/30 due to hypotension Uncontrolled T2DM - A1c 8.2% > continue with HDCF and Lantus, Endocrinology to consult Concern for osteoporosis with pathologic fracture Hypovitaminosis D > f/u Vit D level > continue Vit D supplementation Acute pain/pain management > heat / ice PRN, tylenol scheduled >topicals PRN, lidoderm patch > oxycodone 5mg q4h while awake > Gabapentin 100mg qhs and 200mg daily > Robaxin 500mg TID PRN Gout, stable > continue [employer] Allopurinol and colchicine daily prn Acute blood loss anemia, post-operative Thrombocytopenia likely due to CLL - CL diagnosis 2 months ago at OSH Hem/Onc >CTM daily CBC >transfusion threshold per protocol Hb <7.0, Plts < 10 Acute Kidney Injury (BANG) superimposed by CKD stage III Hypothyroidism > Continue PALLET [employer]ITIONER Levothyroxine > CTM daily BMP > replace electrolytes as needed > encourage PO intake Insomnia Anxiety >Melatonin QHS, Trazodone QHS PRN > Holding 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 Skin/MSK: Considering patient's debility and immobility CTM for skin breakdown, encourage patient to monitor. Code: Full code Nutrition: Nutritional Diet: Diabetic (Standard) consistent carb DVT Prophylaxis: enoxaparin (LOVENOX) syringe 40 mg QDAY(21) Code Status: Full Code Subjective Data: Patient was seen and examined today. Participating in PT this AM in the gym. Ritchie jackson at bedside. Doing better today, mood improved. She report mayur is under con trol, documented 12/16. Denies john nausea or emesis. Participating in therapies a progressing. On track to DC Monday. Endocrine following for DM management. Guillermo Esquivel to PRN. Objective Data: Vital Signs: Last Filed Vital Signs: 24 Claire r Range BP: 122/53 (06/04 818) Temp: 36.5 C (97.7 F) (06/04 818) Pulse: 73 (06/04 818) Respirations: 16 PER MINUTE (06/04 818) SpO2: 100 % (06/04 818) BP: (122-143)/(42-85) Temp: [36.5 C (97.7 F)-37.2 C (98.9 F)] Pulse: [63-73] Respirations: [16 PER MINUTE] SpO2: [94 %-100 %] Intensity Pain Scale (Self Report): 3 (06/03/21 1017) Vitals: 06/01/21 1321 Weight: 91.2 kg (201 lb) Intake/Output Summary: (Last 24 hours) Intake/Output Summary (Last 24 hours) at 06/04/2021 0953 Last data filed at 06/04/2021 0822 Gross per 24 hour Intake 980 ml Output Net 980 ml Stool Occurrence: 1 Oral Diet Order: Diabetic [id number] Kcal/day (60 g carb/meal, 30 g carb/HS snack ) Last Bowel Movement Date: 06/02/21 Radiology Reviewed Medications acetaminophen (TYLENOL) tablet 650 mg, 650 mg, Oral, Q6H while awake allopurinoL (ZYLOPRIM) tablet 300 mg, 300 mg, Oral, QDAY aspirin EC tablet 81 mg, 81 mg, Oral, QDAY carvediloL (COREG) tablet 3.125 mg, 3.125 mg, Oral, BID cholecalciferol (VITAMIN D-3) tablet 5,000 Units, 5,000 Units, Oral, QDAY docusate (COLACE) capsule 100 mg, 100 mg, Oral, BID enoxaparin (LOVENOX) syringe 40 mg, 40 mg, Subcutaneous, QDAY(21) ezetimibe (ZETIA) tablet 10 mg, 10 mg, Oral, QDAY gabapentin (NEURONTIN) capsule 100 mg, 100 mg, Oral, QHS gabapentin (NEURONTIN) capsule 200 mg, 200 mg, Oral, QDAY insulin aspart (U-100) (NOVOLOG FLEXPEN U-100 INSULIN) injection PEN 0-6 Units, 0-6 Units, Subcutaneous, ACHS (22) insulin glargine (LANTUS SOLOSTAR U-100 INSULIN) injection PEN 14 Units, 14 Unit s, Subcutaneous, QHS(22) levothyroxine (SYNTHROID) tablet 88 mcg, 88 mcg, Oral, QDAY lidocaine (LIDODERM) 5 % topical patch 1 patch, 1 patch, Topical, QDAY melatonin (MELATIN) tablet 3 mg, 3 mg, Oral, QHS metFORMIN (GLUCOPHAGE) tablet 1,000 mg, 1,000 mg, Oral, BID w/meals pantoprazole DR (PROTONIX) tablet 40 mg, 40 mg, Oral, QDAY(21) rosuvastatin (CRESTOR) tablet 40 mg, 40 mg, Oral, QDAY senna (SENOKOT) tablet 2 tablet, 2 tablet, Oral, QHS sertraline (ZOLOFT) tablet 100 mg, 100 mg, Oral, QDAY SITagliptin (JANUVIA) tablet 100 mg, 100 mg, Oral, QDAY sodium chloride PF 0.9% flush 3 mL, 3 mL, Flush, FLUSH TID albuterol 0.083% Q4H PRN, aluminum/magnesium hydroxide Q4H PRN, bisacodyL QDAY P RN, colchicine QDAY PRN, hydrOXYzine TID PRN, methocarbamoL Q8H PRN, milk of mag nesia (CONC) Q4H PRN, ondansetron Q6H PRN, oxyCODONE Q4H while awake PRN, simeth icone Q6H PRN, traZODone QHS PRN Labs Results for orders placed or performed during the hospital encounter of 06/01/21 (from the past 24 hour(s)) POC GLUCOSE Collection Time: 06/03/21 11:42 AM # # Low-High Glucose, POC 183 (H) 70 - 100 MG/DL POC GLUCOSE Collection Time: 06/03/21 4:51 PM # # Low-High Glucose, POC 165 (H) 70 - 100 MG/DL POC GLUCOSE Collection Time: 06/03/21 10:23 PM # # Low-High Glucose, POC 135 (H) 70 - 100 MG/DL POC GLUCOSE Collection Time: 06/04/21 7:41 AM # # Low-High Glucose, POC 100 70 - 100 MG/DL Physical Exam: GEN: calm, in the gym with PT, family at bedside. HEENT: normocephalic and atraumatic head NECK: supple CHEST: on RA ABD: no visible distension SKIN: no visible gross lesions EXT: no significant RLE edema. incision left femur c/d/i, mild tttp, no erythema , soft compartments PSYCH: mood and affect appropriate NEURO: speech is clear, EOM conjugated and intact Chart reviewed. Vitals signs, labs, rehab therapy notes and technical solutions consultant's notes rachel nevarez. Case discussed with attending physician. Javon Richter M.D. Physical Medicine and Rehabilitation (PM&R) Resident Physician * Cassie Moreno OT - 06/04/2021 8:30 AM CDT OCCUPATIONAL THERAPY 06/04/21 0830 Subjective Subjective pleasant and agreeable to therapy. grandson present this date. pt rep orts feeling good about being mod I in room Transfers Transfer: Assistive Device Roller Walker Transfer: Sit to stand assist level Modified independent Transfer: Sit to stand type of assist Follows precautions Transfer: Stand to sit assist level Modified independent Transfer: Stand to sit type of assist Follows precautions Transfer: Stand pivot assist level Modified independent Transfer: Stand pivot type of assist Follows precautions Activity Therapeutic Activities UE exercise with 2lb weight, 15 reps/plane. good toleranc e for activity. discussed upcoming discharge and plan for home, pt reports she f eels confident and will have a lot of help from family. standing endurance with walker, pt stand 3x 3 minutes with word search Assessment Assessment pt mod I in room and able to complete ADL, nearing readiness for disc harge Plan Plan Comments endurance with ADLS, IADL tasks- laundry and cooking, toilet trans fers Cassie Moreno, OTR/L [id number] * Heydi Marques MD - 06/03/2021 4:28 PM CDT Endocrinology Consult Admission Date: 06/01/2021 Principal Problem: Hip fracture (HCC) Active Problems: Type II diabetes mellitus (HCC) Essential hypertension Hypothyroid Hyperlipidemia Class 2 severe obesity due to excess calories with serious comorbidity and bod y mass index (BMI) of 37.0 to 37.9 in adult (HCC) Anxiety CKD (chronic kidney disease) stage 3, GFR 30-59 ml/min (HCC) Dyslipidemia associated with type 2 diabetes mellitus (HCC) CVA (cerebral vascular accident) (HCC) CAD (coronary artery disease) S/P CABG (coronary artery bypass graft) Left foot drop Thrombocytopenia (HCC) Impaired mobility and ADLs Impaired functional mobility, balance, gait, and endurance Tanja Deal is a 71 y.o. female who was admitted with a left periprosthet ic femur fracture with resulting ORIF. The patent has persistent deficits and g oals with PT, OT, and complexity including post operative pain, blood loss anemi a, Hx of HTN, CAD/CABG, CVA, CKD stage III, type 2 DM, now requiring closer pool toring as physical requirements in rehabilitation Reason for consult: Diabetes Mgmt Assessment: Diabetes Mellitus Type 2, Uncontrolled - Dx: 30 years - Follows with PCP (KAILEY zendejas) for diabetes care. 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 Screws placed ([place]). - Hip replacement in March 2021 (Neeta Eduardo) - This admit - fall with left hip periprosthetic fracture - She thinks her mom might have had osteoporosis. - has never received tx for. 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 - AM glucose at or near goal - continue Lantus 16u daily - Most recently; prandial BG at or near goal; she is hopeful to get off of prand ial insulin - will restart DPP4 - use sitagliptin as here on formulary. 100mg daily; GFR acc eptable - she can tolerate full dose metformin - increase to 1000mg BID AC - reduce novolog to 3 u TID AC - will try to reduce/discontinue if ablve. - [facility] - POC ACHS - continue statin - would benefit from DM ed and teaching. - Case management to [place] affordable basal insulin for patient - she is getting basaglar as samples only and cannot afford it otherwise. Thyroid - TSH at goal; continue current levothyroxine dose Vit D deficiency - check level - continue Vit D for now. Bone health eval as outpatient - f/u requested She lives in [facility]. She'd like to est with BOB peacock - berthat below. Future Appointments Date Time Provider Department Center 06/04/2021 1:30 PM Micheal Abdi MD [id number] IM 07/15/2021 9:40 AM Shona Patricio MD [id number] Thank you for this consult; Endocrine will continue to follow If questions between 8am and 5pm - please page [phone]. Please page Endocrine [facility] after hours. __ History of Present Illness: Tanja Deal is a 71 y.o. female who was admitted with a left periprosthet ic femur fracture with resulting ORIF. The patent has persistent deficits and g oals with PT, OT, and complexity including post operative pain, blood loss anemi a, Hx of CKD stage III, type II DM, now requiring closer monitoring as physical requirements in rehabilitation She is doing well. Tolerating PO. Would like to reduce to basal insulin only. No jame basaglar is expensive for her . Doing well with PT. Hopes to dc Monday ROS: No fevers, chills, sweats, headaches, nausea, emesis, abdominal pain, skin changes. Medical History: Diagnosis Date Anxiety 03/17/2016 Arrhythmia Patient denies Arthritis Back pain Cardiac arrhythmia Chest pain Coronary artery disease Essential hypertension 03/16/2016 Fibromyalgia No current treatment required Gout Heart attack (HCC) 03/14/2016 History of non-ST elevation myocardial infarction (NSTEMI) 03/14/2016 Hyperlipidemia 03/16/2016 Hypothyroid 03/16/2016 Kidney insufficiency 07/09/19 BUN/Cr: 26/1.23 - Monitored by PCP Morbid obesity with BMI of 40.0-44.9, adult (HCC) 03/17/2016 Neuropathy Patient denies Numbness and tingling in left hand Due to CVA Osteoarthritis Stroke ([facility]) 03/22/2016 RUE weakness Thyroid disease Type II diabetes mellitus ([facility]) 03/16/2016 Managed with metformin & glimepiride Surgical History: Procedure Laterality Date HX HEART CATHETERIZATION 03/2016 Lt Heart Cath With Ventriculogram Left 03/17/2016 Performed by Lenin Coreas MD at [facility] GRAIN MERCHANDISER Coronary Angiography N/A 03/17/2016 Performed by Lenin Coreas MD at [facility] GRAIN MERCHANDISER BYPASS GRAFT CORONARY ARTERY, SIOBHAN, EVH N/A 03/22/2016 Performed by Demarco Byrd MD at [facility] CVOR HIP SURGERY Left 09/09/2016 L hip/ Pelvis - fracture repair ARTHROPLASTY TOTAL KNEE Left 08/28/2019 Performed by Uday Sánchez MD at [facility] OR MANIPULATION KNEE JOINT UNDER GENERAL ANESTHESIA Left 12/18/2019 Performed by Uday Sánchez MD at [facility] OR OPEN TREATMENT WITH INTERNAL FIXATION OF PERIPROSTHETIC LEFT FEMUR FRACTURE Left 05/25/2021 Performed by Raman Wu MD at 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 Tobacco Use Smoking status: Never Smoker Smokeless tobacco: Never Used Vaping Use Vaping Use: Never used Substance and Sexual Activity Alcohol use: Not Currently Alcohol/week: 0.0 standard drinks Drug use: Never Sexual activity: Not on file Other Topics Concern Not on file Social History Narrative Not on file Immunizations (includes history and patient reported): Immunization History Administered Date(s) Administered COVID-19 (MODERNA), mRNA vacc, 100 mcg/0.5 mL (PF) 12/11/2020, 01/08/2021 Flu Vaccine =>65 YO High-Dose (PF) 07/09/2019 Pneumococcal Vaccine(13-E[facility] Peds/immunocompromised adult) 06/14/2015 Allergies: Prednisone, Lisinopril, and Naproxen Medications: Medications Prior to Admission Medication Sig acetaminophen (TYLENOL) 325 mg tablet Take two tablets by mouth every 6 hour s while awake. albuterol 0.083% (PROVENTIL) 2.5 mg /3 mL (0.083 %) nebulizer solution Inhal e 2.5 mg solution by nebulizer as directed every 4 hours as needed for Wheezing or Shortness of Breath. allopurinol (ZYLOPRIM) 300 mg tablet Take 300 mg by mouth daily. aspirin EC 81 mg tablet Take one tablet by mouth twice daily for 35 days. Ta ke with food. [] bisacodyL (DULCOLAX) 10 mg rectal suppository Insert or Apply one suppository to rectal area as directed once for 1 dose. carvediloL (COREG) 3.125 mg tablet Take one tablet by mouth twice daily. Byron e with food. cholecalciferol (VITAMIN D-3) 5000 unit tablet Take 5,000 Units by mouth henri ly. colchicine 0.6 mg tablet Take 0.6 mg by mouth daily as needed. Gout dapagliflozin-metformin (XIGDUO XR) 10-1,000 mg TBph Take 1 tablet by mouth daily. ezetimibe (ZETIA) 10 mg tablet Take one tablet by mouth daily. fish oil /omega-3 fatty acids (SEA-OMEGA) 340/1000 mg capsule Take 2,000 mg by mouth twice daily. gabapentin (NEURONTIN) 100 mg capsule Take two capsules by mouth daily. hydrOXYzine HCL (ATARAX) 25 mg tablet Take one tablet by mouth three times d aily as needed. insulin aspart (U-100) (NOVOLOG FLEXPEN U-100 INSULIN) 100 unit/mL (3 mL) in jection PEN Inject zero Units to twenty four Units under the skin before meals a nd 2200. insulin aspart (U-100) (NOVOLOG FLEXPEN U-100 INSULIN) 100 unit/mL (3 mL) in jection PEN Inject eight Units under the skin three times daily with meals. insulin glargine (LANTUS SOLOSTAR U-100 INSULIN) 100 unit/mL (3 mL) injectio n PEN Inject twenty Units under the skin at bedtime daily. ipratropium/albuterol (COMBIVENT) 103/18 mcg/Actuation inhaler Inhale 2 puff s by mouth into the lungs daily as needed. levothyroxine (SYNTHROID) 88 mcg tablet Take one tablet by mouth daily. lidocaine (LIDODERM) 5 % topical patch Apply one patch topically to affected area daily. Apply patch for 12 hours, then remove for 12 hours before repeating . Magnesium Oxide 500 mg tab Take 500 mg by mouth twice daily. melatonin (MELATIN) 3 mg tablet Take one tablet by mouth at bedtime daily. methocarbamoL (ROBAXIN) 500 mg tablet Take one tablet by mouth three times d aily. milk of magnesia (CONC) 2,400 mg/10 mL oral suspension Take 10 mL by mouth d aily. Bubaemsvhtlll-Qo-Pdwh-Minerals 18-0.4 mg tab Take 1 tablet by mouth daily. oxyCODONE (ROXICODONE) 5 mg tablet Take one tablet to two tablets by mouth e very 4 hours as needed oxymetazoline (AFRIN) 0.05 % nasal spray Apply 2 sprays to each nostril as d irected twice daily as needed. pantoprazole DR (PROTONIX) 40 mg tablet Take one tablet by mouth daily. polyethylene glycol 3350 (MIRALAX) 17 g packet Take one packet by mouth twic e daily. rosuvastatin (CRESTOR) 40 mg tablet TAKE 1 TABLET EVERY DAY senna/docusate (SENOKOT-S) 8.6/50 mg tablet Take two tablets by mouth twice daily. sertraline (ZOLOFT) 100 mg tablet Take 1 tablet by mouth daily. spironolactone (ALDACTONE) 25 mg tablet TAKE 1 TABLET EVERY DAY WITH FOOD vitamins, multiple tablet Take 1 tablet by mouth daily. Physical Exam: Vital Signs: Last Filed In 24 Hours Vital Signs: 24 Hour Range BP: 136/85 (06/03 1209) Temp: 37.2 C (98.9 F) (06/03 1209) Pulse: 63 (06/03 1209) Respirations: 16 PER MINUTE (06/03 1209) SpO2: 97 % (06/03 1209) BP: (126-146)/(45-85) Temp: [36.7 C (98 F)-37.2 C (98.9 F)] Pulse: [58-72] Respirations: [16 PER MINUTE-18 PER MINUTE] SpO2: [94 %-98 %] Intensity Pain Scale (Self Report): 3 (06/03/21 1017) General: Alert, cooperative, no distress, appears stated age Head: Normocephalic, without obvious abnormality, atraumatic Eyes: Conjunctivae/corneas clear. ENT: Moist mucous membranes Lungs: No respiratory distress Skin: warm and dry Psych: affect appropriate In wheelchair. Lab: 24-hour labs: Results for orders placed or performed during the hospital encounter of 06/01/21 (from the past 24 hour(s)) POC GLUCOSE Collection Time: 06/02/21 5:11 PM Result Value Ref Range Glucose, POC 103 (H) 70 - 100 MG/DL POC GLUCOSE Collection Time: 06/02/21 9:52 PM Result Value Ref Range Glucose, POC 160 (H) 70 - 100 MG/DL POC GLUCOSE Collection Time: 06/03/21 7:13 AM Result Value Ref Range Glucose, POC 123 (H) 70 - 100 MG/DL CBC CELLULAR THERAPEUTICS Collection Time: 06/03/21 8:48 AM Result Value Ref Range White Blood Cells 15.0 (H) 4.5 - 11.0 K/UL RBC 2.95 (L) 4.0 - 5.0 M/UL Hemoglobin 9.2 (L) 12.0 - 15.0 GM/DL Hematocrit 27.9 (L) 36 - 45 % MCV 94.5 80 - 100 FL MCH 31.3 26 - 34 PG MCHC 33.1 32.0 - 36.0 G/DL RDW 19.9 (H) 11 - 15 % Platelet Count 237 150 - 400 K/UL MPV 8.6 7 - 11 FL BASIC METABOLIC PANEL CELLULAR THERAPEUTICS Collection Time: 06/03/21 8:48 AM Result Value Ref Range Sodium 138 137 - 147 MMOL/L Potassium 3.5 3.5 - 5.1 MMOL/L Chloride 104 98 - 110 MMOL/L CO2 24 21 - 30 MMOL/L Anion Gap 10 3 - 12 Glucose 124 (H) 70 - 100 MG/DL Blood Urea Nitrogen 13 7 - 25 MG/DL Creatinine 0.84 0.4 - 1.00 MG/DL Calcium 8.5 8.5 - 10.6 MG/DL eGFR Non >60 >60 mL/min eGFR >60 >60 mL/min POC GLUCOSE Collection Time: 06/03/21 9:40 AM Result Value Ref Range Glucose, POC 151 (H) 70 - 100 MG/DL POC GLUCOSE Collection Time: 06/03/21 11:42 AM Result Value Ref Range Glucose, POC 183 (H) 70 - 100 MG/DL Glucose, POC Date/Time Value Ref Range Status 06/03/2021 1142 183 (H) 70 - 100 MG/DL Final 06/03/2021 0940 151 (H) 70 - 100 MG/DL Final 06/03/2021 0713 123 (H) 70 - 100 MG/DL Final 06/02/2021 2152 160 (H) 70 - 100 MG/DL Final 06/02/2021 1711 103 (H) 70 - 100 MG/DL Final 06/02/2021 1210 112 (H) 70 - 100 MG/DL Final 06/02/2021 0720 102 (H) 70 - 100 MG/DL Final 06/01/2021 2135 128 (H) 70 - 100 MG/DL Final Radiology and other Diagnostics Review: Pertinent radiology reviewed. Heydi Marques MD [phone] * Sherri Bojorquez, OT - 06/03/2021 3:00 PM CDT OCCUPATIONAL THERAPY NOTE Name: Tanja Wang "Freda" Say : 1950 Age: 71 y.o. Admission Date: 06/01/2021 LOS: 2 days 06/03/21 1500 Subjective Subjective "I feel ready to go home now. I ninoska feel like a caged animal in a z oo has more freedom than I do." Toileting Toileting-Adjusting clothing BEFORE using toiet, commode, bedpan or urinal Lacie t No Toileting-Wipe Self Assist No Toileting-Adjust clothing AFTER using toilet, commode, bedpan or urinal Assist N o Toileting Assist Stand By Assist Toileting Position Seated Toileting Equipment Grab bar - left Toileting Transfer Toilet Transfer Technique Posterior transfer onto receptacle Toilet Transfer Assist Stand by assistance Toilet Transfer Equipment Grab bar - left Toilet Transfer Comments Cues to line up wheelchair closer to toilet. Transfers Transfer: Assistive Device None;Roller Walker Transfer: Sit to stand assist level Stand by assistance;Minimum assistance;Moder ate assistance Transfer: Sit to stand type of assist Follows precautions;For safety;Increased t shakila to complete Transfer: Stand to sit assist level Modified independent;Stand by assistance Transfer: Stand to sit type of assist For safety;Increased time to complete Transfer: Stand pivot assist level Stand by assistance Transfer: Stand pivot type of assist Follows precautions;For safety;Increased ti me to complete Transfer Comment Pt propels w/c to/from gym. Pt transferring with SBA nearing Mo d I initially. Sit<>stand repetitions practiced from EOM x7 with MIXER OPERATOR HOT METAL for increased strengthening and balance challenge. Pt requires up to ModA as she fatigues. Assessment Assessment progressing toward goals Plan Plan Comments endurance with ADLS, IADL tasks- laundry and cooking, toilet trans fers Therapist: WILLIAMS Finch/Shruti [id number] Date: 06/03/2021 * Tamra Jim, PT - 06/03/2021 1:30 PM CDT PHYSICAL THERAPY 06/03/21 1330 Precautions L LE Precautions LLE Toe Touch Weight Bearing Subjective Subjective Patient sitting on toilet with staff veterinarian upon arrival. Patient agreed and very excited to be Mod I in room, w/c level. Transfers Transfer: Assistive Device None;Roller Walker Transfer: Sit to stand assist level Modified independent Transfer: Sit to stand type of assist Follows precautions;For safety;Increased t shakila to complete Transfer: Stand to sit assist level Modified independent Transfer: Stand to sit type of assist Follows precautions;For safety;Increased t shakila to complete Transfer: Stand pivot assist level Modified independent Transfer: Stand pivot type of assist Follows precautions;For safety;Increased ti me to complete Toileting Toileting-Adjusting clothing BEFORE using toiet, commode, bedpan or urinal Lacie t No Toileting-Wipe Self Assist No Toileting-Adjust clothing AFTER using toilet, commode, bedpan or urinal Assist N o Daily Care Patient continent of bladder? Yes, void Urine Color Yellow Wheelchair Wheelchair: Distance 75 feet (x2) Wheelchair: Assistance Level Modified independent (extra time) Wheelchair: Propulsion Method Bilateral upper extremity Wheelchair Comments Donned/doffed left leg rest without assistance. Activity PT Therapeutic Activities Increased time discussing discharge and being mod I in the room. Toileting activities. Exercise Seated;Standing;LLE;RLE;Strengthening (LLE quad set, seated december. ) Other Activity RLE exercise: 2 set x5 sit to/from stand from elevated therapy ma t with decreased UE use. Assessment Assessment Patient agrees to therapy discharge and recommendations. Located a pi cture of patient's apartment and educated about son building a ramp or purchasin g one from [employer], several found on [employer] and shown to patient. Patient agreed to being mod I in the room and if she feels uncomfortable with transfers or safe ty she will call RN before transferring. Patient plans to place commode next to edge of bed to use during the night. During sit to/from stand from elevated mat height, pt unable to obtain full upright standing position without UE use or phy sical assistance and uses therapy mat at posterior LE for assistance. Plan Comments progress I with wc management, progress transfers without violating LE precautions, increase LLE knee and ankle ROM, locate pt's cane and night splint from acute hospital, plan for car transfer, car transfer if family is present RAJ MadisonT Doctor of Physical Therapy * Rose Gomez MD - 06/03/2021 11:43 AM CDT ATTESTATION I personally performed the hunt portions of the E/M visit, discussed case with re sident and concur with resident documentation of history, physical exam, assessm ent, and treatment plan unless otherwise noted. Staff name: Rose Gomez MD Date: 06/03/2021 REHABILITATION MEDICINE PROGRESS NOTE Today's Date: 06/03/2021 Admission Date: 06/01/2021 LOS: 2 days Insurance: MEDICARE Date of Admission: 06/01/2021 Active Problems: Principal Problem: Hip fracture (HCC) Active Problems: Type II diabetes mellitus (HCC) Essential hypertension Hypothyroid Hyperlipidemia Class 2 severe obesity due to excess calories with serious comorbidity and bod y mass index (BMI) of 37.0 to 37.9 in adult ([facility]) Anxiety CKD (chronic kidney disease) stage 3, GFR 30-59 ml/min ([facility]) Dyslipidemia associated with type 2 diabetes mellitus ([facility]) CVA (cerebral vascular accident) ([facility]) CAD (coronary artery disease) S/P CABG (coronary artery bypass graft) Left foot drop Thrombocytopenia ([facility]) Impaired mobility and ADLs Impaired functional mobility, balance, gait, and endurance Assessment & Plan Tanja Deal is a 71 y.o. female admitted to [facility] on 06/01/2021 with the following issues: left hip fracture status post arthroplasty Rehabilitation: Patient will continue with comprehensive therapies including phy sical therapy, occupational therapy, speech & language pathology and additional specialized rehab therapies, half-way, neuropsychology and PM&R physician oversight. Goals: at wheelchair level, household mobility, Modified independent Recommended therapy after discharge: Home with Assistance, and, Home Health Sett ing Recommended equipment: Hospital bed, Wheelchair - Manual, Wheelchair cushion Due to patients functional limitations they require a manual wheelchair for i ndependent mobility in the home. A therapy evaluation was completed during their inpatient rehab stay to assess the most appropriate wheelchair for the patient. Patient requires hospital bed at discharge. Patient requires the head of the bed to be elevated more than 30 degrees most of the time due to congestive heart fa ilure, chronic pulmonary disease or problems with aspiration. Tentative discharge date: 06/07/2021 Daily Functional Update: Transfers Transfer: Assistive Device: Roller Walker (06/03/2021 8:30 AM) Transfer: Sit to stand assist level: Minimum assistance (06/03/2021 8:30 AM) Transfer: Stand pivot assist level: Minimum assistance (06/03/2021 8:30 AM) No data recorded Gait/ Mobility Gait: Assistive Device: Roller Walker (06/02/2021 4:00 PM) GAIT: Assist Level: Minimum assistance (06/02/2021 9:00 AM) Gait Distance: 4 feet (06/02/2021 4:00 PM) Wheelchair: Distance: 510 feet (06/02/2021 4:00 PM) Wheelchair: Assistance Level: Stand by assistance (06/02/2021 2:00 PM) Toileting Toileting Assist: Minimal Assist (06/03/2021 8:30 AM) Toileting Equipment: Grab bar - left (06/03/2021 8:30 AM) Toilet Transfer Assist: Minimum assistance (06/03/2021 8:30 AM) Dressing LE Dressing Assist: Moderate Assist (06/02/2021 12:15 PM) UE Dressing Assist: Stand By Assist (06/02/2021 12:15 PM) Rehabilitation Plan & Recommendations: Left hip periprosthetic fracture secondary to fall, s/p ORIF 05/[address] Wu Impairments: motor weakness, reduced activity tolerance, poor endurance, impaire d balance, reduced WB status and ROM Impaired transfers, impaired ADLs, impaired mobility, impaired ambulation, at hi gh risk of falls due to impaired mobility and gait abnormality >consult PT and OT to address functional and mobility deficits > consult ST to r/o cognitive impairment > LLE TTWB > Lovenox (reduced dose due to CKD) post-op DVT ppx > per Ortho ASA 81mg BID x4 weeks at discharge > per Ortho: Leave dressings in place until follow up appointment unless saturated then ok to replace with 4x4 gauze and tegaderm/hypafix. If any new drainage seen or concerns for infection, please contact Dr. Wu's office @ [phone] or Alma Rosa Jaramillo PAC, [phone] > F/u with Dr. 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 asa,rosuvastatin,Aldactone,and zetia > Coreg reduced to 3.125 on 05/30 due to hypotension Uncontrolled T2DM - A1c 8.2% > continue with HDCF and Lantus, Endocrinology to consult Concern for osteoporosis with pathologic fracture Hypovitaminosis D > f/u Vit D level > continue Vit D supplementation Acute pain/pain management > heat / ice PRN, tylenol scheduled >topicals PRN, lidoderm patch > oxycodone 5mg q4h while awake > Gabapentin 100mg qhs and 200mg daily > Robaxin 500mg TID (wean as able) Gout, stable > continue PALLET STONE POSITIONER Allopurinol and colchicine daily prn Acute blood loss anemia, post-operative Thrombocytopenia likely due to CLL - CL diagnosis 2 months ago at OSH Hem/Onc >CTM daily CBC >transfusion threshold per protocol Hb <7.0, Plts < 10 Acute Kidney Injury (BANG) superimposed by CKD stage III Hypothyroidism > Continue PALLET STONE POSITIONER Levothyroxine > CTM daily BMP > replace electrolytes as needed > encourage PO intake Insomnia Anxiety >Melatonin QHS, Trazodone QHS PRN > Holding 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 Skin/MSK: Considering patient's debility and immobility CTM for skin breakdown, encourage patient to monitor. Code: Full code Nutrition: Nutritional Diet: Diabetic (Standard) consistent carb DVT Prophylaxis: enoxaparin (LOVENOX) syringe 40 mg QDAY(21) Code Status: Full Code Subjective Data: Patient was seen and examined today. Seated in WC in her room talking to PT. She was frustrated today due to her mood, feeling like she can go home today and is upset, but she knows she still needs to work. Easily redirected and calm. Denies any new issues and pain under good control. Chart reviewed, including labs, nu rsing notes, therapy notes and consultants notes. Patient denies any new changes or new symptoms from his baseline status. No drainage reported from wound. Denies current fever, chills, active emesis. Participating in rehabilitation therapies as tolerated. Objective Data: Vital Signs: Last Filed Vital Signs: 24 Claire r Range BP: 127/46 (06/03 1003) Temp: 36.8 C (98.2 F) (06/03 1003) Pulse: 72 (06/03 1003) Respirations: 16 PER MINUTE (06/03 1003) SpO2: 94 % (06/03 1003) BP: (126-146)/(45-80) Temp: [36.7 C (98 F)-37.4 C (99.3 F)] Pulse: [58-73] Respirations: [16 PER MINUTE-18 PER MINUTE] SpO2: [94 %-99 %] Intensity Pain Scale (Self Report): 3 (06/03/21 0644) Vitals: 06/01/21 1321 Weight: 91.2 kg (201 lb) Intake/Output Summary: (Last 24 hours) Intake/Output Summary (Last 24 hours) at 06/03/2021 1203 Last data filed at 06/03/2021 0950 Gross per 24 hour Intake 1020 ml Output Net 1020 ml Stool Occurrence: 1 Last Bowel Movement Date: 06/02/21 Radiology Reviewed Medications acetaminophen (TYLENOL) tablet 650 mg, 650 mg, Oral, Q6H while awake allopurinoL (ZYLOPRIM) tablet 300 mg, 300 mg, Oral, QDAY aspirin EC tablet 81 mg, 81 mg, Oral, QDAY carvediloL (COREG) tablet 3.125 mg, 3.125 mg, Oral, BID cholecalciferol (VITAMIN D-3) tablet 5,000 Units, 5,000 Units, Oral, QDAY docusate (COLACE) capsule 100 mg, 100 mg, Oral, BID enoxaparin (LOVENOX) syringe 40 mg, 40 mg, Subcutaneous, QDAY(21) ezetimibe (ZETIA) tablet 10 mg, 10 mg, Oral, QDAY gabapentin (NEURONTIN) capsule 100 mg, 100 mg, Oral, QHS gabapentin (NEURONTIN) capsule 200 mg, 200 mg, Oral, QDAY insulin aspart (U-100) (NOVOLOG FLEXPEN U-100 INSULIN) injection PEN 0-6 Units, 0-6 Units, Subcutaneous, ACHS (22) insulin aspart (U-100) (NOVOLOG FLEXPEN U-100 INSULIN) injection PEN 6 Units, 6 Units, Subcutaneous, TID w/ meals insulin glargine (LANTUS SOLOSTAR U-100 INSULIN) injection PEN 16 Units, 16 Unit s, Subcutaneous, QHS(22) levothyroxine (SYNTHROID) tablet 88 mcg, 88 mcg, Oral, QDAY lidocaine (LIDODERM) 5 % topical patch 1 patch, 1 patch, Topical, QDAY melatonin (MELATIN) tablet 3 mg, 3 mg, Oral, QHS metFORMIN (GLUCOPHAGE) tablet 500 mg, 500 mg, Oral, BID w/meals pantoprazole DR (PROTONIX) tablet 40 mg, 40 mg, Oral, QDAY(21) rosuvastatin (CRESTOR) tablet 40 mg, 40 mg, Oral, QDAY senna (SENOKOT) tablet 2 tablet, 2 tablet, Oral, QHS sertraline (ZOLOFT) tablet 100 mg, 100 mg, Oral, QDAY albuterol 0.083% Q4H PRN, aluminum/magnesium hydroxide Q4H PRN, bisacodyL QDAY P RN, colchicine QDAY PRN, hydrOXYzine TID PRN, methocarbamoL Q8H PRN, milk of mag nesia (CONC) Q4H PRN, ondansetron Q6H PRN, oxyCODONE Q4H while awake PRN, simeth icone Q6H PRN, traZODone QHS PRN Labs Results for orders placed or performed during the hospital encounter of 06/01/21 (from the past 24 hour(s)) POC GLUCOSE Collection Time: 06/02/21 12:10 PM # # Low-High Glucose, POC 112 (H) 70 - 100 MG/DL POC GLUCOSE Collection Time: 06/02/21 5:11 PM # # Low-High Glucose, POC 103 (H) 70 - 100 MG/DL POC GLUCOSE Collection Time: 06/02/21 9:52 PM # # Low-High Glucose, POC 160 (H) 70 - 100 MG/DL POC GLUCOSE Collection Time: 06/03/21 7:13 AM # # Low-High Glucose, POC 123 (H) 70 - 100 MG/DL CBC CELLULAR THERAPEUTICS Collection Time: 06/03/21 8:48 AM # # Low-High White Blood Cells 15.0 (H) 4.5 - 11.0 K/UL RBC 2.95 (L) 4.0 - 5.0 M/UL Hemoglobin 9.2 (L) 12.0 - 15.0 GM/DL Hematocrit 27.9 (L) 36 - 45 % MCV 94.5 80 - 100 FL MCH 31.3 26 - 34 PG MCHC 33.1 32.0 - 36.0 G/DL RDW 19.9 (H) 11 - 15 % Platelet Count 237 150 - 400 K/UL MPV 8.6 7 - 11 FL BASIC METABOLIC PANEL CELLULAR THERAPEUTICS Collection Time: 06/03/21 8:48 AM # # Low-High Sodium 138 137 - 147 MMOL/L Potassium 3.5 3.5 - 5.1 MMOL/L Chloride 104 98 - 110 MMOL/L CO2 24 21 - 30 MMOL/L Anion Gap 10 3 - 12 Glucose 124 (H) 70 - 100 MG/DL Blood Urea Nitrogen 13 7 - 25 MG/DL Creatinine 0.84 0.4 - 1.00 MG/DL Calcium 8.5 8.5 - 10.6 MG/DL eGFR Non >60 >60 mL/min eGFR >60 >60 mL/min POC GLUCOSE Collection Time: 06/03/21 9:40 AM # # Low-High Glucose, POC 151 (H) 70 - 100 MG/DL POC GLUCOSE Collection Time: 06/03/21 11:42 AM # # Low-High Glucose, POC 183 (H) 70 - 100 MG/DL Physical Exam: GEN: calm, no distress HEENT: normocephalic and atraumatic head NECK: supple CHEST: no use of supplemental oxygenation ABD: no visible distension SKIN: no visible gross lesions EXT: no significant RLE edema. LLE with edema proximally around incision with no neurotension, soft compartments, incision left femur c/d/i (maybe minimal drai nage), mild tttp, no erythema PSYCH: mood and affect appropriate NEURO: speech is clear, EOM conjugated and intact, stable, anti gravity strength at minimum BLE Chart reviewed. Vitals signs, labs, rehab therapy notes and technical solutions consultant's notes rachel nevarez. Case discussed with attending physician. Javon Richter M.D. Physical Medicine and Rehabilitation (PM&R) Resident Physician * Tamra Jim, PT - 06/03/2021 11:00 AM CDT PHYSICAL THERAPY 06/03/21 1100 Precautions L LE Precautions LLE Toe Touch Weight Bearing Subjective Subjective At beginning of therapy session, patient reports that shes in a incre ased amount of back and L groin pain and reports "Just in a bad mood." "I feel l chelsi I'm an animal trapped in a cage and have no freedom. I'm sorry I'm in such a bad mood. " Bed Mobility Bed Mobility: Sit to Supine Assist Level Modified independent Bed Mobility: Sit to supine type of assist Requires extra time;With rail;With he ad of bed flat Transfers Transfer: Assistive Device Roller Walker;None Transfer: Sit to stand assist level Modified independent Transfer: Sit to stand type of assist Follows precautions;For safety;Increased t shakila to complete Transfer: Stand to sit assist level Modified independent Transfer: Stand to sit type of assist Follows precautions;For safety;Increased t shakila to complete Transfer: Stand pivot assist level Modified independent Transfer Comment Transfers from toilet, w/c, bed, and recliner Toileting Toileting-Adjusting clothing BEFORE using toiet, commode, bedpan or urinal Lacie t No Toileting-Wipe Self Assist No Toileting-Adjust clothing AFTER using toilet, commode, bedpan or urinal Assist N o Daily Care Patient continent of bladder? Yes, void Urine Color Yellow Wheelchair Wheelchair: Distance 50 feet Wheelchair: Assistance Level Modified independent (extra time) Wheelchair: Propulsion Method Bilateral upper extremity;Manual wheelchair Wheelchair Comments Educated on different parts of w/c and correctly/ safe manag ement of different parts. W/c negotiation completed around cones and boulders an d other obstacles with increased time to complete. Activity PT Therapeutic Activities Toileting activities, Discussed discharge plan, Car tr ansfer plan, w/c management and different parts, PT Modalities Provided ice packs at end of therapy session to assist with pain. Assessment Assessment Patient reports that she has previously had a wheelchair and it fit t hrough all of her door ways so shes not worried at discharge. Patient demonstrat ed increased independence with wheelchair propulsion and management. Intermitten t verbal cues given for managing leg rests and 1 reminder to lock brakes. Plan Comments repeated sit to/from stand, progress standing hops/ scooting, progress I with wc management, progress transfers without violating LE precautions, incre ase LLE knee and ankle ROM, locate pt's cane and night splint from acute hospita l, plan for car transfer, car transfer if family is present RAJ MadisonT Doctor of Physical Therapy * Cassie Moreno, OT - 06/03/2021 8:30 AM CDT OCCUPATIONAL THERAPY 06/03/21 0830 Subjective Subjective pt is pleasant and agreeable to therapy Grooming Grooming - Wash Face Assist No Grooming - [place] Teeth Assist No Grooming - Wash Both Hands Assist No Grooming - Comb/[place] Hair Assist No Grooming Assist Stand By Assist Grooming Position Sitting in chair Grooming Comments pt is able to propel self up to sink Toileting Toileting-Adjusting clothing BEFORE using toiet, commode, bedpan or urinal Lacie t No Toileting-Wipe Self Assist No Toileting-Adjust clothing AFTER using toilet, commode, bedpan or urinal Assist N o Toileting Assist Minimal Assist Toileting Equipment Grab bar - left Toileting Comments steady assist during clothing management Toileting Transfer Toilet Transfer Technique Posterior transfer onto receptacle Toilet Transfer Assist Minimum assistance Toilet Transfer Equipment Grab bar - left Transfers Transfer: Assistive Device Roller Walker Transfer: Sit to stand assist level Minimum assistance Transfer: Sit to stand type of assist Follows precautions;For safety;Increased t shakila to complete Transfer: Stand to sit assist level Minimum assistance Transfer: Stand to sit type of assist Follows precautions;For safety;Increased t shakila to complete Transfer: Stand pivot assist level Minimum assistance Transfer: Stand pivot type of assist Follows precautions;For safety;Increased ti me to complete Transfer Comment pt slides RLE on ground to complete transfer Activity Therapeutic Activities pt completes red theraband exercises 15 reps/plane with i ntermittent rest breaks. good tolerance for activity. propels self in wheelchair to/from gym Therapeutic Exercise Seated;Right upper extremity;Left upper extremity;Strengthe carmine Assessment Assessment progressing toward goals Plan Plan Comments endurance with ADLS, IADL tasks- laundry and cooking, toilet trans manuel Moreno, RAOULR/L [id number] * Tamra Jim, PT - 06/02/2021 4:00 PM CDT PHYSICAL THERAPY PROGRESS NOTE Name: Tanja Deal (Dee) : 1950 Age: 71 y.o. Admission Date: 06/01/2021 LOS: 1 day Subjective Significant hospital events: 71 y.o. female with past medical history of hyperte nsion, ischemic cardiomyopathy status post CABG, L AGUSTIN 03/2021, admitted due to fall up curbstep, 05/25 for ORIF L periprosthetic femur fracture. Mental / Cognitive Status: Alert;Oriented L LE Precautions: LLE Toe Touch Weight Bearing Ambulation Assist: Independent Mobility in Community with Device Home Situation: Lives Alone Type of Home: Apartment ROM ROM Position Assessed: Seated ROM Method: Active LE ROM: WFL;Left;Limited (due to pain and post surgery ) Strength Overall Strength: Generalized Weakness Strength Unable To Assess: Due to Pain/Surgery Posture/Neurological Posture/Neuro Comments: L foot burning sensation. No numbness of tingling. Bed Mobility/Transfer Bed Mobility: Supine to Sit: Minimal Assist;Assist with Trunk;Use of Rail;Head o f Bed Elevated;Requires Extra Time Bed Mobility: Sit to Supine: Minimal Assist;Bed Flat;Requires Extra Time Transfer Type: Sit to/from Stand;Stand Pivot Transfer: Assistance Level: Minimal Assist Transfer: Assistive Device: Roller Walker Transfers: Type Of Assistance: Verbal Cues;Elevated Bed;For Balance;To Maintain Precautions;For Strength Deficit;For Safety Considerations;Requires Extra Time Gait Gait Distance: 4 feet Gait: Assistance Level: Minimal Assist;Safety Considerations Gait: Assistive Device: Roller Walker Gait: Descriptors: Pace: Slow;Decreased heel strike RLE (NWB LLE ) Wheelchair Mobility Wheelchair: Distance: 510 feet Wheelchair: Assistance Level: Minimal Assist;Level Surfaces;Safety Consideration s Wheelchair: Method: Propels Manual Wheelchair with;Bilateral;UE;Right;LE Assessment/Progress Hospital Bed: Patient requires a semi-electric hospital bed at discharge. Patient has a medi mery condition which requires positioning of the body in ways not feasible with a n ordinary bed. Patient requires positioning of the body in ways not feasible wi ordinary beds in order to alleviate pain. Patient requires positioning of the body in ways not feasible with ordinary beds, and the patient requires frequent repositioning of the body or has an immediate need for change in body position. Wheelchair- standard The patient has a mobility limitation that significantly impairs ability to part icipate in one or more mobility-related activity of daily living (MRADLs) suc h as toileting, feeding, dressing, grooming and bathing in customary locations i n the home. The patients mobility limitation cannot be sufficiently resolved by the use of an appropriately fitting cane or walker. Use of a manual wheelchai r will significantly improve the patients ability to participate in MRADLs and the patient will use it on the regular basis in the home. The patient has n ot expressed an unwillingness to use the manual wheelchair that is provided in t he home. The patient has sufficient UE function and other physical and mental ca pabilities needed to safely propel the manual wheelchair that is provided in the home during a typical day The patients home provides adequate access between rooms, maneuvering space, and surfaces for use of the manual wheelchair that is provided. Wheelchair size width: 18 inches x Depth: 18 inches Floor to seat height: 17 inches Wheelchair cushion- seat and back: Patient will require a general wheelchair seat(18 in x 18in) and back cushion- 20 inch width Elevating Leg rests for LLE: The beneficiary has significant edema of the lower extremities that requires an elevating leg rests. Patient has a left lower extremity weight bearing restrict ion requiring leg rests to maintain post surgical precautions. Anti-tippers To prevent tipping backwards. PT Discharge Recommendations Recommendation for Therapy Post Discharge: Home health Patient Currently Requires Physical Assist With: All mobility Patient Currently Requires Equipment: Wheelchair;Wheelchair: cushion;Wheelchair: elevating leg rest;Hospital bed; Therapist: Tamra Rutherford DPT Date: 06/02/2021 Associated attestation - Rose Gomez MD - 06/03/2021 12:43 PM CDT Due to patients functional limitations they require a manual wheelchair for i ndependent mobility in the home. A therapy evaluation was completed during their inpatient rehab stay to assess the most appropriate wheelchair for the patient. Rose Gomez MD 06/03/2021 12:43 PM * Tamra Jim, PT - 06/02/2021 2:00 PM CDT PHYSICAL THERAPY 06/02/21 1400 Precautions L LE Precautions LLE Toe Touch Weight Bearing Bed Mobility Bed Mobility: Sit to Supine Assist Level Minimum assistance Bed Mobility: Sit to supine type of assist Requires extra time;With rail;With he ad of bed elevated Transfers Transfer: Assistive Device Roller Walker Transfer: Sit to stand assist level Minimum assistance Transfer: Stand to sit assist level Minimum assistance Transfer: Stand pivot assist level Minimum assistance Wheelchair Wheelchair: Distance 510 feet (+100) Wheelchair: Assistance Level Stand by assistance Wheelchair: Propulsion Method Bilateral upper extremity;Right lower extremity;Ma nual wheelchair Wheelchair: Ramp Management Minimum assistance Activity PT Therapeutic Activities outcome measures, discussed discharge plans, Assessed L knee ROM and assisted with sustained stretch Outcome Measures 6 Minute Walk: Feet in 6 Minutes 510 6 Minute Walk: Device Used wheelchair, stand by assist, used B UE and RLE 10 Meter Walk Assessed 10 Meter Walk: Average Gait Speed (seconds) 19.52 10 Meter Walk: Average Gait Speed (meters/second) 0.51 10 Meter Walk: Comfortable Gait Speed: Device Used wheelchair with stand by assi st. 10 Meter Walk: Comfortable Gait Speed: Comment pt used BUE and RLE Ybarra Balance Scale: Not Applicable 0 5x Sit to Stand: Not Applicable 0 Assessment Assessment Patient demonstrates increased wheelchair propulsion distance during 6 min walk test. Patient presents with limited L knee ROM about 50 degrees of kn ee flexion. Patient reports that she is very nervous about bending her L knee du e to prior knee surgery and it caused a ton of pain while completing PT post op. Plan Comments w/c negotiation, w/c management, progress transfers without violating L E precautions, increase LLE knee and ankle ROM, locate pt's cane and night splin t from acute hospital, plan for car transfer on Tuesday 06/05 with grandson, Felicita ble check with apartment company or sister to measure door widths and height of entrance bump. LE strengthen, repeated sit to/from stand transfer. Recommendations PT Discharge Recommendations Home with Assistance;and;Home Health Setting Equipment Recommendations Hospital bed;Wheelchair - Manual;Wheelchair cushion RAJ MadisonT Doctor of Physical Therapy * Heydi Marques MD - 06/02/2021 1:38 PM CDT Endocrinology Progress note Chart reviewed today, patient was not seen. Blood glucose values reviewed. Glucose, POC Date/Time Value Ref Range Status 06/02/2021 1210 112 (H) 70 - 100 MG/DL Final 06/02/2021 0720 102 (H) 70 - 100 MG/DL Final 06/01/2021 2135 128 (H) 70 - 100 MG/DL Final 06/01/2021 1637 145 (H) 70 - 100 MG/DL Final 06/01/2021 1207 154 (H) 70 - 100 MG/DL Final 06/01/2021 0739 103 (H) 70 - 100 MG/DL Final 06/01/2021 0309 106 (H) 70 - 100 MG/DL Final 05/31/2021 2058 137 (H) 70 - 100 MG/DL Final Assessment: AM glucose at goal Prandial Glucose at goal Goal blood glucose 100-140 fasting and 140-180 during the day while inpatient. Plan: Tight glycemic control - will try to reduce insulin lantus 16 units novolog 6 u tid AC LDCF ACHS Continue metformin Endocrine will continue to follow Please page the [facility] Endo listed if any questions/concerns * Steve Vo MA,CCC-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 WORKER - 06/02/2021 1:00 PM CDT SPEECH-LANGUAGE PATHOLOGY COGNITIVE ASSESSMENT EVALUATION SUMMARY Summary* Overall Cognitive Severity Level: WNL Cog Func Summary: Pt seen for cognitive-communication evaluation this DOS. She p resents with functional cognitive-communication skills at this time based on pt report and results of assessment. She received score of 95 on the RBANS Kit A wh ich falls WNL indicating that cognitive-communication skills are not an area of concern at this time. Pt currently lives alone but denies any difficulty with fu nctional cognition for completion of iADLs including bill pay and medication man agement. Given pt's performance during testing and report, 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 WORKER services to addre ss cognitive-communication skills not indicated at this time. Prognosis: Good Plan: Patient Functioning at Baseline. No Further Speech Therapy Indicated at th is Time. Results Reported to Physician: Yes (Via EMR) RBANS Repeatable Battery for the Assessment of Neuropsychological Status, Fo rm A Domain Subtest Total Score Index Score Classification Notes Immediate Memory List Learning 106 Average Story Memory Visuospatial/ constructional Figure Copy 87 Low Average Line Orientation Language Picture Naming 07/18 105 Average Semantic Fluency Attention Digit Span 04/23 75 Borderline Coding Delayed Memory List Recall 05/18 113 High Average List Recognition Story Recall 07/20 Figure Recall Sum of Index Scores 486 TOTAL SCALE 95 Average BEHAVIOR Comments*: Pt agreeable to 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 WORKER session. ORIENTATION Comments*: Pt AOx4 with good awareness of current deficits. Objective* Vocational: Retired 71-year oldfemalewitha past medical historyof hypertension, CLL with ass ociated thrombocytopenia, CAD status post CABG, type 2 diabetes, CKD, history of left hip fracture status post arthroplasty on 05/25/[address] Wu , history of stroke without late effects of weakness. [facility] following a fall during which the patient lost her ba santino while stepping over a curb landing onto her right side, denying loss of co nsciousness or hitting her head. She was found to have a left periprosthetic fem ur fracture and is now status post ORIF of periprosthetic left femur fracture. Along her hospitalization, IM service was consulted for geriatric trauma and to help manage multiple medical comorbidities including postoperative pain, blood loss anemia, type 2 diabetes requiring insulin therapy, CKD stage III, depressio n. PM&R physician consulted to help with post-acute care needs. Patient has been working with physical and occupational therapy -[phone] has been making functional gains. PLOF was independent. She lives alone and family and friends can provide limite d assistance. She lives in an apartment w/o stairs. She owns a SPC. CLOF is SBA with eating and grooming, modA with LED and minAx2 with gait using RW, Osmany with bed mobility, modA with transfers. Patient is anticipated to return to home at themodified independentlevel of care. Education* Persons Educated: Patient Barriers To Learning: None Noted Teaching Methods: Verbal Topics: Memory Patient Response: Verbalized Understanding Goal Formulation: With Patient Therapist: Steve Vo MA,CCC-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 WORKER Voalte: [id number] Date: 06/02/2021 * Micheline Simons, OT - 06/02/2021 11:00 AM CDT OCCUPATIONAL THERAPY NOTE Name: Tanja Deal (Dee) : 1950 Age: 71 y.o. Admission Date: 06/01/2021 LOS: 1 day 06/02/21 1215 History Reason For Admission left hip fracture status post arthroplasty Precautions L LE Precautions LLE Toe Touch Weight Bearing Cognitive Orientation Oriented x4 Patient Behavior Cooperative;Calm Cognition Follows Commands Home Environment Ambulation Assist Independent Mobility in Community with Device Home Situation Lives Alone Type of Home Apartment Patient Owned Equipment cane, walker, shower seat, grab bars in shower, grab bar s outside of shower, grab bar near toilet, hospital bed, AFO on left foot Home Layout One Level;Performs ADL'S on One Level Entry Stairs Details 1 small step/ bump to get in to house . Think a WC can go o kellie but needs assistance to complete In Home Stairs Details no stairs inside the home except one small stair to get i n to the shower Comment Ambulating with cane since stroke 5 years ago. Typically ambulate in [facility] with cane and without cane in the house. Typically care complete all aspe cts of care without assistance. Drives. 1 fall about 1 year ago and then fall pr ior to admission. Lots of family and friends that can provide as much assistance as needed at discharge. Prior Function Vocational Retired Other Function Comments . March 10 hip surgery and have been staying with in the home. Enjoys going to eat with friends. Typically sleeps all day and stay up all night. Enjoys hanging out with family. Goals: do what I want to do when I want to. Eventually want to be able to walk in the grass and get to the garden. Grooming Grooming - Wash Face Assist No Grooming - [place] Teeth Assist No Grooming - Wash Both Hands Assist No Grooming - Comb/[place] Hair Assist No Grooming Assist Stand By Assist Bathing Bath/Shower Soap and water shower/bath Bathing - Chest Assist No Bathing - Left Arm Assist No Bathing - Right Arm Assist No Bathing - Abdomen Assist No Bathing - Perineal Area Assist No Bathing - Buttocks Assist No Bathing - Left Upper Leg Assist No Bathing - Right Upper Leg Assist No Bathing - Left Lower Leg Including Foot Assist Yes Bathing - Right Lower Leg Including Foot Assist Yes Bathing Assist Shower;Minimal Assist Bathing Position Shower - sitting Bathing Equipment Grab bars - left;Grab bars - front;Hand held shower;Shower harrison ir with back Bathing Comments Pt. completed shower seated on shower chair. Pt. only requires minimal assist at this time to bathe LLB., Upper Body Dressing UE Dressing Assist Stand By Assist Upper Dressing Position Sitting in chair (wheelchair) Lower Body Dressing LE Dressing Assist Moderate Assist Lower Dressing Position Sitting in chair (wheelchair) Lower Dressing Comments Pt. required MOD assist to don briefs and pants. Toileting Toileting-Adjusting clothing BEFORE using toiet, commode, bedpan or urinal Lacie t Yes Toileting-Wipe Self Assist Yes Toileting-Adjust clothing AFTER using toilet, commode, bedpan or urinal Assist N o Toileting Assist Minimal Assist Toileting Position Seated Toileting Equipment Grab bar - left Toileting Transfer Toilet Transfer Technique Posterior transfer onto receptacle Toilet Transfer Assist Minimum assistance Toilet Transfer Equipment Grab bar - left Tub/Shower Transfer Tub/Shower Transfer Technique Stand pivot to left Shower Transfer Assist Minimum assistance Tub/Shower Transfer Equipment Grab bar - front Tub/Shower Comments Pt. required MIN assist to transfer to/from shower chair usi ng grab bars on left and front. Transfers Transfer: Assistive Device Roller Walker Transfer: Sit to stand assist level Minimum assistance Transfer: Sit to stand type of assist Follows precautions;For safety Transfer: Stand to sit assist level Minimum assistance Transfer: Stand to sit type of assist Follows precautions;For safety Transfer: Stand pivot assist level Minimum assistance Transfer: Stand pivot type of assist Follows precautions;For safety Vision Current Vision Wears Glasses Only for Reading Posture / Neurological Posture/Neuro Comments L foot burning sensation. NO numbness of tingling. Assessment Assessment Pt. will benefit from occupational therapy services to increase indep endence and strength with mobility based ADLS. Plan OT Plan Family / caregiver training;Functional transfers training;Self-care retr aining;Therapeutic exercises;Home-management retraining Intensity 90 Plan Comments endurance with ADLS, IADL tasks- laundry and cooking, toilet trans fers Recommendations OT Discharge Recommendations Home with intermittent supervision Weekly Goals ADL Goals Dressing LE;Bathing;Toileting Patient Will Perform Bathing Modified Independent;w/ Supervision/Safety Patient Will Perform LE Dressing w/ Modified Independent;w/ Adaptive Equipment Patient Will Perform Grooming in Wheelchair;Independently Pt Will Perform All Functional Transfers Independent Pt will demonstrate simple meal prep with ___ at ___ Stand by assistance;Roller walker level Pt will demonstrate simple laundry task with ___ at ___ Stand by assistance;Roll er walker level Goals for the stay Pt will perform basic care and transfer with Modified independence Therapist: WILLIAMS Short/Shruti [id number] Date: 06/02/2021 * Tamra Jim, PT - 06/02/2021 9:00 AM CDT PHYSICAL THERAPY 06/02/21 0900 History Reason For Admission left hip fracture status post arthroplasty Previous Medical History stroke, HLD, HTN, DM2, CAD s/p CABG, ICM, gout, ABLA, BANG on CKDD, hypothyroidism, anxiety Intensity Pain Intensity Pain Scale (Self Report) 2 Words to Describe Pain Burning Location of Pain Foot Location Pain Orientation Left Precautions L LE Precautions LLE Toe Touch Weight Bearing Cognitive Orientation Oriented x4 Patient Behavior Cooperative;Calm Cognition Follows Commands Home Environment Ambulation Assist Independent Mobility in Community with Device Home Situation Lives Alone Type of Home Apartment Patient Owned Equipment cane, walker, shower chair, shower seat, grab bars in ower, grab bar outside of shower, grab bar by toilet, hospital bed- springs are breaking, AFO on left foot- don't always wear it, especially since hip surgery a nd difficult to get on Home Layout One Level;Performs ADL'S on One Level Entry Stairs Details 1 small step/ bump to get into the house. Thinks that a whe elchair can roll over but will need assistance to complete. In Home Stairs Details no stairs in the home. Except 1 small step to get into th e shower. Comment Ambulating with cane since stroke 5 years ago. Typically ambulate in [facility] with cane and without cane in the house. Typically can complete all aspec ts of care without assistance. Drives. 1 fall about 1 year ago and then fall bethany or to admission. Lots of family and friends that can provide as much assistance as needed at discharge. Prior Function Vocational Retired Other Function Comments . March 10 hip surgery and have been staying with in the home. Enjoys going to eat with friends. Typically sleeps all day and stay up all night. Enjoys hanging out with family. Goals: do what I want to do when I want to. Eventually want to be able to walk in the grass and get to the garden. Range of Motion LE ROM WFL Strength Overall Strength Generalized Weakness Strength Unable To Assess Due to Pain/Surgery Posture / Neurological Posture/Neuro Comments L foot burning sensation. NO numbness of tingling. Subjective Subjective Patient reports "that she is willing to attempt to do whatever she ca n to be able to get home." Bed Mobility Bed Mobility: Supine to sit assist level Minimum assistance Bed Mobility: Supine to sit type of assist With head of bed elevated;With rail;R equires extra time Bed Mobility: Sit to Supine Assist Level Minimum assistance Bed Mobility: Sit to supine type of assist Requires extra time;With head of bed elevated;With rail Transfers Transfer: Assistive Device Roller Walker Transfer: Sit to stand assist level Minimum assistance Transfer: Sit to stand type of assist For safety;Increased time to complete;Assi st with Left lower extremity Transfer: Stand to sit assist level Minimum assistance Transfer: Stand to sit type of assist For safety;Increased time to complete;Assi st with Left lower extremity Transfer: Stand pivot assist level Minimum assistance Transfer: Stand pivot type of assist For safety;Increased time to complete;Lacie t with Left lower extremity Toileting Toileting-Adjusting clothing BEFORE using toiet, commode, bedpan or urinal Lacie t Yes Toileting-Wipe Self Assist No Toileting-Adjust clothing AFTER using toilet, commode, bedpan or urinal Assist Y es Daily Care Patient continent of bladder? Yes, void Urine Color Yellow Urine Description Clear Gait Gait Distance 4 feet GAIT: Assist Level Minimum assistance GAIT: Type of Assist Facilitation of weight shift;For safety;Requires cues for s tep length;Requires cues to follow precautions;Requires cues for placement of de vice Gait: Assistive Device Roller Walker Gait Comment NWB LLE, decreased RLE Wheelchair Wheelchair: Distance 25 feet Wheelchair: Assistance Level Minimum assistance Wheelchair: Propulsion Method Bilateral upper extremity;Right lower extremity;Ma nual wheelchair Wheelchair: Door Management Minimum assistance Activity PT Therapeutic Activities Evaluation, outcome measures, Assessment Assessment Patient is a 71 y.o. female admitted [facility] due to left hip fracture status post arthroplasty. Patient was independe nt with all aspects of care prior to admission. Patient currently LLE TTWB and r equires physical assistance to complete transfers and other functional mobility. Patient would benefit from further skilled physical therapy to address impairme nts and provide appropriate equipment. Plan Comments w/c negotiation, w/c management, progress transfers without violating L E precautions, increase LLE knee and ankle ROM, locate pt's cane and night splin t from [facility] hospital, plan for car transfer on Tuesday 06/05 with claudette, Recommendations PT Discharge Recommendations Home with Assistance;and;Home Health Setting Equipment Recommendations Hospital bed;Wheelchair - Manual;Wheelchair cushion Weekly Goals Weekly Bed Mobility Goals Patient will perform sit to supine with;Patient will p erform supine to sit with Patient will perform sit to supine with Modified independent Patient will perform supine to sit with Modified independent Weekly Transfer Goals Patient will complete sit to stand transfer with;Patient w ill complete stand to sit transfer with;Patient will complete stand pivot transf er with Patient will complete sit to stand transfer with Modified independent Patient will complete stand to sit transfer with Modified independent Patient will complete stand pivot transfer with Modified independent Weekly Wheelchair Goals Patient will propel manual wheelchair up and down ramp w ith;Patient will propel manual wheelchair on level surfaces with;Patient will ma nage doors in wheelchair with Patient will propel manual wheelchair up and down ramp with Minimum assistance Patient will propel manual wheelchair on level surfaces with Modified Independen ce Patient will manage doors in wheelchair with Modified independence Patient will demo/request pressure relief Modified independent Goal(s) for the Stay Patient will perform at wheelchair level;household mobility;Modified independent Tamra Rutherford DPT Doctor of Physical Therapy * Rose Gomez MD - 06/02/2021 7:56 AM CDT ATTESTATION I personally performed the hunt portions of the E/M visit, discussed case with re sident and concur with resident documentation of history, physical exam, assessm ent, and treatment plan unless otherwise noted. Please see my H&P for details. Staff name: Rose Gomez MD Date: 06/02/2021 REHABILITATION MEDICINE PROGRESS NOTE Today's Date: 06/02/2021 Admission Date: 06/01/2021 LOS: 1 day Insurance: MEDICARE Date of Admission: 06/01/2021 Active Problems: Principal Problem: Hip fracture (HCC) Active Problems: Type II diabetes mellitus ([facility]) Essential hypertension Hypothyroid Hyperlipidemia Class 2 severe obesity due to excess calories with serious comorbidity and bod y mass index (BMI) of 37.0 to 37.9 in adult (HCC) Anxiety CKD (chronic kidney disease) stage 3, GFR 30-59 ml/min ([facility]) Dyslipidemia associated with type 2 diabetes mellitus ([facility]) CVA (cerebral vascular accident) ([facility]) CAD (coronary artery disease) S/P CABG (coronary artery bypass graft) Left foot drop Thrombocytopenia ([facility]) Impaired mobility and ADLs Impaired functional mobility, balance, gait, and endurance Assessment & Plan Tanja Deal is a 71 y.o. female admitted to [facility] on 06/01/2021 with the following issues: left hip fracture status post arthroplasty Rehabilitation: Patient will continue with comprehensive therapies including phy sical therapy, occupational therapy, speech & language pathology and additional specialized rehab therapies, half-way, neuropsychology and PM&R physician oversight. Goals: Recommended therapy after discharge: Recommended equipment: Tentative discharge date: Disposition: Continue rehabilitation plan of care. Daily Functional Update: Transfers Transfer: Assistive Device: Roller Walker (05/31/2021 3:00 PM) No data recorded No data recorded No data recorded Gait/ Mobility Gait: Assistive Device: Roller Walker (05/30/2021 2:00 PM) No data recorded Gait Distance: 2 feet (05/30/2021 2:00 PM) No data recorded No data recorded Toileting Toileting Assist: Maximum Assist (05/27/2021 4:00 PM) No data recorded No data recorded Dressing LE Dressing Assist: Moderate Assist (05/31/2021 2:00 PM) No data recorded Rehabilitation Plan & Recommendations: Left hip periprosthetic fracture secondary to fall, s/p ORIF 05/[address] Wu Impairments: motor weakness, reduced activity tolerance, poor endurance, impaire d balance, reduced WB status and ROM Impaired transfers, impaired ADLs, impaired mobility, impaired ambulation, at hi gh risk of falls due to impaired mobility and gait abnormality >consult PT and OT to address functional and mobility deficits > consult ST to r/o cognitive impairment > LLE TTWB > Lovenox (reduced dose due to CKD) post-op DVT ppx > per Ortho ASA 81mg BID x4 weeks at discharge > per Ortho: Leave dressings in place until follow up appointment unless saturated then ok to replace with 4x4 gauze and tegaderm/hypafix. If any new drainage seen or concerns for infection, please contact Dr. Wu's office @ [phone] or Alma Rosa Jaramillo PAC, [phone] > F/u with Dr. 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 asa,rosuvastatin,Aldactone,and zetia > Coreg reduced to 3.125 on 05/30 due to hypotension Uncontrolled T2DM - A1c 8.2% > continue with HDCF and Lantus, Endocrinology to consult Concern for osteoporosis with pathologic fracture Hypovitaminosis D > f/u Vit D level > continue Vit D supplementation Acute pain/pain management > heat / ice PRN, tylenol scheduled >topicals PRN, lidoderm patch > oxycodone 5mg q4h while awake > Gabapentin 100mg qhs and 200mg daily > Robaxin 500mg TID (wean as able) Gout, stable > continue PALLET STONE POSITIONER Allopurinol and colchicine daily prn Acute blood loss anemia, post-operative Thrombocytopenia likely due to CLL - CL diagnosis 2 months ago at OSH Hem/Onc >CTM daily CBC >transfusion threshold per protocol Hb <7.0, Plts < 10 Acute Kidney Injury (BANG) superimposed by CKD stage III Hypothyroidism > Continue PALLET STONE POSITIONER Levothyroxine > CTM daily BMP > replace electrolytes as needed > encourage PO intake Insomnia Anxiety >Melatonin QHS, Trazodone QHS PRN > Holding 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 Skin/MSK: Considering patient's debility and immobility CTM for skin breakdown, encourage patient to monitor. Code: Full code Nutrition: Nutritional Diet: Diabetic (Standard) consistent carb DVT Prophylaxis: enoxaparin (LOVENOX) syringe 40 mg QDAY(21) Code Status: Full Code Subjective Data: Patient seen and examined in the morning along with the attending physician. No acute events overnight reported by the patient or by nursing staff. Chart revi ew, labs reviewed. Vital signs are stable. Pain seems to be under appropriate control, last documented 11/18. Last bowel movement documented 06/01. Appropriat e urinary Kyle output using the commode. Patient has been using Tylenol for kameron n control, in addition to gabapentin at bedtime and during the day, also using R obaxin 3 times a day, will transition this to as needed. Patient has not used a ny oxycodone 5 mg since admission to rehab unit. Patient also did not use trazo done for sleep. No new concerns. Discussed with staff veterinarian to maintain dressing an d change if saturated, notify physician. Orders updated. Objective Data: Vital Signs: Last Filed Vital Signs: 24 Claire r Range BP: 142/42 (06/02 0850) Temp: 37.1 C (98.7 F) (06/02 0850) Pulse: 64 (06/02 0850) Respirations: 20 PER MINUTE (06/02 0850) SpO2: 94 % (06/02 0850) Height: 154.9 cm (61") (06/01 1321) BP: (125-168)/(37-53) Temp: [36.7 C (98 F)-37.3 C (99.1 F)] Pulse: [62-98] Respirations: [18 PER MINUTE-20 PER MINUTE] SpO2: [94 %-98 %] Intensity Pain Scale (Self Report): 2 (06/02/21 0900) Vitals: 06/01/21 1321 Weight: 91.2 kg (201 lb) Intake/Output Summary: (Last 24 hours) Intake/Output Summary (Last 24 hours) at 06/02/2021 1043 Last data filed at 06/02/2021 0850 Gross per 24 hour Intake 1010 ml Output 1300 ml Net -290 ml Stool Occurrence: 1 Last Bowel Movement Date: 06/01/21 Radiology Reviewed Medications acetaminophen (TYLENOL) tablet 650 mg, 650 mg, Oral, Q6H while awake allopurinoL (ZYLOPRIM) tablet 300 mg, 300 mg, Oral, QDAY aspirin EC tablet 81 mg, 81 mg, Oral, QDAY carvediloL (COREG) tablet 3.125 mg, 3.125 mg, Oral, BID cholecalciferol (VITAMIN D-3) tablet 5,000 Units, 5,000 Units, Oral, QDAY docusate (COLACE) capsule 100 mg, 100 mg, Oral, BID enoxaparin (LOVENOX) syringe 40 mg, 40 mg, Subcutaneous, QDAY(21) ezetimibe (ZETIA) tablet 10 mg, 10 mg, Oral, QDAY gabapentin (NEURONTIN) capsule 100 mg, 100 mg, Oral, QHS gabapentin (NEURONTIN) capsule 200 mg, 200 mg, Oral, QDAY insulin aspart (U-100) (NOVOLOG FLEXPEN U-100 INSULIN) injection PEN 0-6 Units, 0-6 Units, Subcutaneous, ACHS (22) insulin aspart (U-100) (NOVOLOG FLEXPEN U-100 INSULIN) injection PEN 6 Units, 6 Units, Subcutaneous, TID w/ meals insulin glargine (LANTUS SOLOSTAR U-100 INSULIN) injection PEN 16 Units, 16 Unit s, Subcutaneous, QHS(22) levothyroxine (SYNTHROID) tablet 88 mcg, 88 mcg, Oral, QDAY lidocaine (LIDODERM) 5 % topical patch 1 patch, 1 patch, Topical, QDAY melatonin (MELATIN) tablet 3 mg, 3 mg, Oral, QHS metFORMIN (GLUCOPHAGE) tablet 500 mg, 500 mg, Oral, BID w/meals pantoprazole DR (PROTONIX) tablet 40 mg, 40 mg, Oral, QDAY(21) rosuvastatin (CRESTOR) tablet 40 mg, 40 mg, Oral, QDAY senna (SENOKOT) tablet 2 tablet, 2 tablet, Oral, QHS sertraline (ZOLOFT) tablet 100 mg, 100 mg, Oral, QDAY albuterol 0.083% Q4H PRN, aluminum/magnesium hydroxide Q4H PRN, bisacodyL QDAY P RN, colchicine QDAY PRN, hydrOXYzine TID PRN, methocarbamoL Q8H PRN, milk of mag nesia (CONC) Q4H PRN, ondansetron Q6H PRN, oxyCODONE Q4H while awake PRN, simeth icone Q6H PRN, traZODone QHS PRN Labs Results for orders placed or performed during the hospital encounter of 06/01/21 (from the past 24 hour(s)) POC GLUCOSE Collection Time: 06/01/21 4:37 PM # # Low-High Glucose, POC 145 (H) 70 - 100 MG/DL POC GLUCOSE Collection Time: 06/01/21 9:35 PM # # Low-High Glucose, POC 128 (H) 70 - 100 MG/DL POC GLUCOSE Collection Time: 06/02/21 7:20 AM # # Low-High Glucose, POC 102 (H) 70 - 100 MG/DL CBC CELLULAR THERAPEUTICS Collection Time: 06/02/21 9:58 AM # # Low-High White Blood Cells 12.5 (H) 4.5 - 11.0 K/UL RBC 2.97 (L) 4.0 - 5.0 M/UL Hemoglobin 9.1 (L) 12.0 - 15.0 GM/DL Hematocrit 28.2 (L) 36 - 45 % MCV 94.9 80 - 100 FL MCH 30.6 26 - 34 PG MCHC 32.2 32.0 - 36.0 G/DL RDW 20.9 (H) 11 - 15 % Platelet Count 192 150 - 400 K/UL MPV 8.3 7 - 11 FL BASIC METABOLIC PANEL CELLULAR THERAPEUTICS Collection Time: 06/02/21 9:58 AM # # Low-High Sodium 140 137 - 147 MMOL/L Potassium 3.7 3.5 - 5.1 MMOL/L Chloride 105 98 - 110 MMOL/L CO2 26 21 - 30 MMOL/L Anion Gap 9 3 - 12 Glucose 118 (H) 70 - 100 MG/DL Blood Urea Nitrogen 11 7 - 25 MG/DL Creatinine 0.91 0.4 - 1.00 MG/DL Calcium 8.6 8.5 - 10.6 MG/DL eGFR Non >60 >60 mL/min eGFR >60 >60 mL/min Physical Exam: GEN: calm, no distress HEENT: normocephalic and atraumatic head NECK: supple CHEST: no use of supplemental oxygenation ABD: no visible distension SKIN: no visible gross lesions EXT: no significant RLE edema. LLE with edema proximally around incision with no neurotension, soft compartments, incision left femur c/d/i (maybe minimal drai nage), mild tttp, no erythema PSYCH: mood and affect appropriate NEURO: speech is clear, EOM conjugated and intact, stable, anti gravity strength at minimum BLE Chart reviewed. Vitals signs, labs, rehab therapy notes and technical solutions consultant's notes rachel nevarez. Case discussed with attending physician. Javon Richter M.D. Physical Medicine and Rehabilitation (PM&R) Resident Physician * Ines Valentine RT - 06/01/2021 5:57 PM CDT RT Adult Assessment Note NAME:Tanja Deal :1950 AGE: 71 y.o. ADMISSION DATE: 06/01/2021 DAYS ADMITTED: LOS: 0 days RT Treatment Plan: Protocol Plan: Medications Albuterol: Nebulizer PRN Additional Comments: Impressions of the patient: pt resting in bed, NAD Intervention(s)/outcome(s): RT assessment Patient education that was completed: n/a Recommendations to the care team: n/a Vital Signs: Pulse: 65 RR: 18 PER MINUTE SpO2: 95 % O2 Device: Liter Flow: O2%: (RA) Breath Sounds: Clear (Implies normal) Respiratory Effort: Non-Labored documented in this encounter H&P Notes * Rose Gomez MD - 06/01/2021 11:13 AM CDT ATTESTATION I personally performed the hunt portions of the E/M visit, discussed case with re sident and concur with resident documentation of history, physical exam, assessm ent, and treatment plan unless otherwise noted. 71F with h/o HTN, CAD, DM2, CK D, prior L hip fracture s/p arthroplasty admitted to IRF with left periprosth etic femur with residual motor weakness, reduced activity tolerance, poor endura nce, impaired balance, reduced WB status and ROM. Hospital course c/b acute blo od loss anemia requiring transfusions, hyperglycemia. The prior functional status was independent, lives alone. Current impairments i nclude motor weakness, reduced activity tolerance, poor endurance, impaired james nce, reduced WB status and ROM, leading to impaired mobility, impaired self-care . Current level of function is min to mod A ADLs and mobility. This patient meets medical necessity and has functional deficits requiring the i ntensity of therapy available at an IRF level of care. Patient has medical compl exity requiring daily physician oversight including Hip fracture puts patient at risk for DVT/PE, falls, and institutionalization and management of medical jeanna rbidities including h/o stroke, HLD, HTN, DM2, CAD s/p CABG, ICM, gout, ABLA, AK I on CKDD, hypothyroidism, anxiety. The patient can participate in and can full y benefit from the services offered in the IRF setting including 24 hour rehabil itation nursing, daily physician oversight, and complex interdisciplinary rehabi litation including PT, OT totaling at 3 hours per day, 5 days per week of therap y for the duration of the rehab stay. The ELOS is 7-10 days with a goal for mod I ambulation functional level at the time of discharge. Their rehab potential is good and I do not expect their medical co-morbidities to interfere with full rehabilitation participation. Additions/addendums to resident's note highlighted in blue. Staff name: Rose Gomez MD Date: 06/02/2021 Physical Medicine & Rehabilitation History & Physical Note Date of Service: 06/01/2021 Tanja Deal is a 71 y.o. female. : 1950 MRN# : [id number] Primary Insurance: MEDICARE Secondary Insurance: [place] Tertiary Insurance: Financial Class: Medicare Date of Expected Rehab Admission: 06-01-2021 Precautions: Fall Weight bearing Precautions:TTWB LLE Active Problems Principal Problem: Hip fracture (HCC) Active Problems: Type II diabetes mellitus (HCC) Essential hypertension Hypothyroid Hyperlipidemia Class 2 severe obesity due to excess calories with serious comorbidity and bod y mass index (BMI) of 37.0 to 37.9 in adult (HCC) Anxiety CKD (chronic kidney disease) stage 3, GFR 30-59 ml/min (HCC) Dyslipidemia associated with type 2 diabetes mellitus (HCC) CVA (cerebral vascular accident) ([facility]) CAD (coronary artery disease) S/P CABG (coronary artery bypass graft) Left foot drop Thrombocytopenia (HCC) Impaired mobility and ADLs Impaired functional mobility, balance, gait, and endurance Assessment & Plan Tanja Deal is a 71 y.o. female admitted to [facility] on 06/01/2021 with the following issues: left hip fracture status post arthroplasty Impairments: pain, poor activity tolerance and weakness Activity Limitations: grooming, bathing, dressing - upper, dressing - lower, tr ansfers, ambulation and stairs Participation Restrictions: unable to return home safely Rehabilitation Plan Patient will be admitted to inpatient rehabilitation for comprehensive therapies to include Physical therapy, Occupational therapy and Speech therapy Rehabilitation Prognosis: Fair Tolerance for three hours of therapy a day: Fair Goals/Barriers/Facilitators Family / Patient Goals:return home alone Mobility Goals:Overall goal isIndependentand Physical Therapy will evaluat e and treat ambulation/wheelchair use and bed transfers Activities of Daily Living (ADLs) Goals:Overall goal isIndependentand Occu pational therapy will evaluate and treat basic Activities of Daily Living Cognition / Communication Goals:Cognition grossly intact and Speech intact Barriers & Interventions:Caregiver Apprehension:Arrange caregiver support and discuss barriers and patient progress with caregivers when appropriate. [place] of Care:Initiate interdisciplinary rehabilitation to improve funct ional independence and reduce burden of care. Medication Education:Pharmacist and nursing staff to provide education to pa tient and family regarding medication side effects, special precautions, and saf e administration. Facilitators:good home setup, good family / social support, patient motivation , improving strength / endurance and improving medical condition Current Medical Problems/Risks of Medical Complications/Management Left hip periprosthetic fracture secondary to fall, s/p ORIF 05/[address] Wu Impairments: motor weakness, reduced activity tolerance, poor endurance, impaire d balance, reduced WB status and ROM Impaired transfers, impaired ADLs, impaired mobility, impaired ambulation, at hi gh risk of falls due to impaired mobility and gait abnormality > consult PT and OT to address functional and mobility deficits > consult ST to r/o cognitive impairment > LLE TTWB > Lovenox (reduced dose due to CKD) post-op DVT ppx > per Ortho ASA 81mg BID x4 weeks at discharge > per Ortho: Leave dressings in place until follow up appointment unless saturated then ok to replace with 4x4 gauze and tegaderm/hypafix. If any new drainage seen or concerns for infection, please contact Dr. Wu's office @ [phone] or Alma Rosa Jaramillo PAC, [phone] > F/u with Dr. 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 asa,rosuvastatin, Aldactone,and zetia > Coreg reduced to 3.125 on 05/30 due to hypotension Uncontrolled T2DM - A1c 8.2% > continue with HDCF and Lantus, Endocrinology to consult Concern for osteoporosis with pathologic fracture Hypovitaminosis D > f/u Vit D level > continue Vit D supplementation Acute pain/pain management > heat / ice PRN, tylenol scheduled > topicals PRN, lidoderm patch > oxycodone 5mg q4h while awake > Gabapentin 100mg qhs and 200mg daily > Robaxin 500mg TID (wean as able) Gout, stable > continue PALLET STONE POSITIONER Allopurinol and colchicine daily prn Acute blood loss anemia, post-operative Thrombocytopenia likely due to CLL - CL diagnosis 2 months ago at OSH Hem/Onc > CTM daily CBC > transfusion threshold per protocol Hb <7.0, Plts <10 Acute Kidney Injury (BANG) superimposed by CKD stage III Hypothyroidism > Continue PALLET STONE POSITIONER Levothyroxine > CTM daily BMP > replace electrolytes as needed > encourage PO intake Insomnia Anxiety > Melatonin QHS, Trazodone QHS PRN > Holding PALLET STONE POSITIONER Xanax, continue Atarax TID PRN and Zoloft > consult neuropsych FEN/GI GERD BMI 38, Obesity > Diabetic diet > GI ppx/symptomatic control: zofran for n/v, protonix for GERD, simethicone for colic pain > Recommend bowel regimen per protocol > voiding spontaneously > Monitor I&O's > Perform BVIs (bladder scan) if unable to void or PVRs if able to void > Perform ISC (intermittent straight catheterization) for volumes > 300mL > continue until pt has 3 consecutive volumes <100mL to ensure complete emptying and avoidance of urologic complications. Skin/MSK: Considering patient's debility and immobility CTM for skin breakdown, encourage patient to monitor. DVT prophylaxis: lovenox Code: Full code History of Present Illness 71-year oldfemalewitha past medical historyof hypertension, CLL with ass ociated thrombocytopenia, CAD status post CABG, type 2 diabetes, CKD, history of left hip fracture status post arthroplasty on 05/25/[address] Wu , history of stroke without late effects of weakness. [facility] a fall during which the patient lost her ba santino while stepping over a curb landing onto her right side, denying loss of co nsciousness or hitting her head. She was found to have a left periprosthetic fem ur fracture and is now status post ORIF of periprosthetic left femur fracture. Along her hospitalization, IM service was consulted for geriatric trauma and to help manage multiple medical comorbidities including postoperative pain, blood loss anemia, type 2 diabetes requiring insulin therapy, CKD stage III, depressio n. PM&R physician consulted to help with post-acute care needs. Patient has been working with physical and occupational therapy [id number] has been making functional gains. PLOF was independent. She lives alone and family and friends can provide limite d assistance. She lives in an apartment w/o stairs. She owns a SPC. CLOF is SBA with eating and grooming, modA with LED and minAx2 with gait using RW, Osmany with bed mobility, modA with transfers. [facility] Today, I saw and examined the patient. Family at bedside. She endorsed the above described medical history. We discussed expected course while at [facility], includ ing intensive therapies with physical therapy 1.5 hour(s), occupational therapy 1.5 hour(s), for a minimum of 3 hours a day 5 days a week for the duration of e acute inpatient rehabilitation stay, supervised specialized nursing care and p sician oversight. She is amenable to this plan. ROS: No reports of subjective fever, chills, double vision, nausea, vomit, chest pain, shortness of breath or diarrhea. Past Medical History Medical History: Diagnosis Date Anxiety 03/17/2016 Arrhythmia Patient denies Arthritis Back pain Cardiac arrhythmia Chest pain Coronary artery disease Essential hypertension 03/16/2016 Fibromyalgia No current treatment required Gout Heart attack (HCC) 03/14/2016 History of non-ST elevation myocardial infarction (NSTEMI) 03/14/2016 Hyperlipidemia 03/16/2016 Hypothyroid 03/16/2016 Kidney insufficiency 07/09/19 BUN/Cr: 26/1.23 - Monitored by PCP Morbid obesity with BMI of 40.0-44.9, adult ([facility]) 03/17/2016 Neuropathy Patient denies Numbness and tingling in left hand Due to CVA Osteoarthritis Stroke ([facility]) 03/22/2016 RUE weakness Thyroid disease Type II diabetes mellitus ([facility]) 03/16/2016 Managed with metformin & glimepiride Past Surgical History Surgical History: Procedure Laterality Date HX HEART CATHETERIZATION 03/2016 Lt Heart Cath With Ventriculogram Left 03/17/2016 Performed by Lenin Coreas MD at [facility] GRAIN MERCHANDISER Coronary Angiography N/A 03/17/2016 Performed by Lenin Coreas MD at 2 GRAIN MERCHANDISER BYPASS GRAFT CORONARY ARTERY, SIOBHAN, EVH N/A 03/22/2016 Performed by Demarco Byrd MD at [facility] CVOR HIP SURGERY Left 09/09/2016 L hip/ Pelvis - fracture repair ARTHROPLASTY TOTAL KNEE Left 08/28/2019 Performed by Uday Sánchez MD at [facility] OR MANIPULATION KNEE JOINT UNDER GENERAL ANESTHESIA Left 12/18/2019 Performed by Uday Sánchez MD at [facility] OR OPEN TREATMENT WITH INTERNAL FIXATION OF PERIPROSTHETIC LEFT FEMUR FRACTURE Left 05/25/2021 Performed by Raman Wu MD at 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 Tobacco Use Smoking status: Never Smoker Smokeless tobacco: Never Used Vaping Use Vaping Use: Never used Substance and Sexual Activity Alcohol use: Not Currently Alcohol/week: 0.0 standard drinks Drug use: Never Sexual activity: Not on file Other Topics Concern Not on file Social History Narrative Not on file Family History Problem Relation Age of Onset Heart Attack Mother Heart Attack Father Hypertension Father Arthritis Father Diabetes Father Cancer Sister Cancer Brother Hypertension Daughter Dementia Neg Hx Medications: No current facility-administered medications on file prior to encounter. Current Outpatient Medications on File Prior to Encounter Medication Sig Dispense Refill acetaminophen (TYLENOL) 325 mg tablet Take two tablets by mouth every 6 hour s while awake. 0 albuterol 0.083% (PROVENTIL) 2.5 mg /3 mL (0.083 %) nebulizer solution Inhal e 2.5 mg solution by nebulizer as directed every 4 hours as needed for Wheezing or Shortness of Breath. allopurinol (ZYLOPRIM) 300 mg tablet Take 300 mg by mouth daily. aspirin EC 81 mg tablet Take one tablet by mouth twice daily for 35 days. Ta ke with food. 90 tablet bisacodyL (DULCOLAX) 10 mg rectal suppository Insert or Apply one suppositor y to rectal area as directed once for 1 dose. 1 suppository 0 carvediloL (COREG) 3.125 mg tablet Take one tablet by mouth twice daily. Byron e with food. 180 tablet 0 cholecalciferol (VITAMIN D-3) 5000 unit tablet Take 5,000 Units by mouth henri ly. colchicine 0.6 mg tablet Take 0.6 mg by mouth daily as needed. Gout dapagliflozin-metformin (XIGDUO XR) 10-1,000 mg TBph Take 1 tablet by mouth daily. ezetimibe (ZETIA) 10 mg tablet Take one tablet by mouth daily. 90 tablet 3 fish oil /omega-3 fatty acids (SEA-OMEGA) 340/1000 mg capsule Take 2,000 mg by mouth twice daily. [START ON 06/02/2021] gabapentin (NEURONTIN) 100 mg capsule Take two capsules by mouth daily. 270 capsule hydrOXYzine HCL (ATARAX) 25 mg tablet Take one tablet by mouth three times d aily as needed. 90 tablet insulin aspart (U-100) (NOVOLOG FLEXPEN U-100 INSULIN) 100 unit/mL (3 mL) in jection PEN Inject zero Units to twenty four Units under the skin before meals a nd 2200. 45 mL insulin aspart (U-100) (NOVOLOG FLEXPEN U-100 INSULIN) 100 unit/mL (3 mL) in jection PEN Inject eight Units under the skin three times daily with meals. 45 m L insulin glargine (LANTUS SOLOSTAR U-100 INSULIN) 100 unit/mL (3 mL) injectio n PEN Inject twenty Units under the skin at bedtime daily. 45 mL ipratropium/albuterol (COMBIVENT) 103/18 mcg/Actuation inhaler Inhale 2 puff s by mouth into the lungs daily as needed. [START ON 06/02/2021] levothyroxine (SYNTHROID) 88 mcg tablet Take one tablet by mouth daily. 90 tablet [START ON 06/02/2021] lidocaine (LIDODERM) 5 % topical patch Apply one patch topically to affected area daily. Apply patch for 12 hours, then remove for 12 h ours before repeating. 90 patch Magnesium Oxide 500 mg tab Take 500 mg by mouth twice daily. melatonin (MELATIN) 3 mg tablet Take one tablet by mouth at bedtime daily. 9 0 tablet methocarbamoL (ROBAXIN) 500 mg tablet Take one tablet by mouth three times d aily. [START ON 06/02/2021] milk of magnesia (CONC) 2,400 mg/10 mL oral suspension Take 10 mL by mouth daily. 360 mL Grtrzcfvgnbjb-Rv-Cwom-Minerals 18-0.4 mg tab Take 1 tablet by mouth daily. oxyCODONE (ROXICODONE) 5 mg tablet Take one tablet to two tablets by mouth e very 4 hours as needed 50 tablet 0 oxymetazoline (AFRIN) 0.05 % nasal spray Apply 2 sprays to each nostril as d irected twice daily as needed. pantoprazole DR (PROTONIX) 40 mg tablet Take one tablet by mouth daily. 90 t ablet polyethylene glycol 3350 (MIRALAX) 17 g packet Take one packet by mouth twic e daily. 12 each rosuvastatin (CRESTOR) 40 mg tablet TAKE 1 TABLET EVERY DAY 90 tablet 3 senna/docusate (SENOKOT-S) 8.6/50 mg tablet Take two tablets by mouth twice daily. 90 tablet sertraline (ZOLOFT) 100 mg tablet Take 1 tablet by mouth daily. spironolactone (ALDACTONE) 25 mg tablet TAKE 1 TABLET EVERY DAY WITH FOOD 90 tablet 3 vitamins, multiple tablet Take 1 tablet by mouth daily. Allergies: Allergies Allergen Reactions Prednisone NAUSEA ONLY Lisinopril COUGH Naproxen NAUSEA ONLY Prior Level of Function Self-Care/ADLs:Independent with ADLs and functional transfers Mobility:Independent Mobility in Community with Device Work/Personal Responsibilities/Hobbies:n/a Home Environment Home Situation: Lives Alone (05/31/2021 3:00 PM) Patient Owned Equipment: Single Point Cane (05/31/2021 3:00 PM) Type of Home: Apartment (05/31/2021 3:00 PM) Entry Stairs: No Stairs (05/31/2021 3:00 PM) In-Home Stairs: No Stairs (05/31/2021 3:00 PM) Comments: Patient lives alone in apartment. Able to have assist from friends/fam renetta as needed. Walk in shower with bench, grab bars in shower and around toilet. Reports this is the only fall, tripping stepping up curbstep. Uses cane at base line and was independent/driving. (05/31/2021 3:00 PM) Support System:Lives Alone/ has family and friends that can assist if need ed. Current Level of Function Physical Therapy:05-31-2021 Bed Mobility/Transfer Bed Mobility: Sit to Supine: Minimal Assist;Bed Flat;Requires Extra Time Transfer Type: Sit to/from Stand;Stand Pivot (chair-->BSC-->chair-->bed) Transfer: Assistance Level: Moderate Assist;of 1st person;Minimal Assist;of 2nd person Transfer: Assistive Device: Roller Walker Comments: For the most part, pt opts for NWB instead of TTWB. As she fatigues, requires assistance to maintain WB precaution. Pt can pivot/shuffle L or R, b ut has trouble backing up. Unable to functionally hop at this time. Balance Sitting Balance: Standby Assist Standing Balance: 2 UE support;Moderate Assist;x2 People Occupational Therapy:05-31-2021 Vision Current Vision: Wears Glasses Only for Reading ADL's Where Assessed: Edge of Bed;Chair Eating Assist: Independent Grooming Assist: Stand By Assist Grooming Deficits: Setup LE Dressing Assist: Moderate Assist LE Dressing Deficits: Don/Doff R Sock;Don/Doff L Sock (unable to anisha L sock, Ab le to don R sock) ADL Mobility Bed Mobility: Supine to Sit: Minimal assist Transfer Type: Sit to stand Transfer: Assistance Level: From;To;Bed;Moderate assist;of 1st person;Standby as sist;of 2nd person Transfer: Assistive Device: Hand hold assist;Roller walker Transfer: Type of Assistance: For strength deficit;For safety considerations Other Transfer Type: Stand pivot Other Transfer: Assistance Level: From;Bed;To;Bedside chair;Moderate assist;of 1 st person;Minimal assist;of 2nd person (physical cues for TTWB) Other Transfer: Assistive Device: Roller walker Other Transfer: Type of Assistance: To maintain precautions;For safety considera tions;For strength deficit End of Activity Status: Nursing notified;Up in chair Sitting Balance: Standby assist Standing Balance: Minimal assist Gait Distance: 2 feet Gait: Assistance Level: Minimal assist;x2 people Gait: Assistive Device: Roller walker Gait Comments: Pt able to follow TTWB to NWB of LLE during stand pivot with RW t his day. Cognition Overall Cognitive Status: WFL to Adequately Complete Self Care Tasks Safely Review of Systems A 14 point review of systems was negative except for: except note din the HPI. Physical Exam BP: 125/45 (06/01 1321) Temp: 37.1 C (98.8 F) (06/01 132) Pulse: 62 (06/01 132) Respirations: 19 PER MINUTE (06/01 1321) SpO2: 96 % (06/01 132) Height: 154.9 cm (61") (06/01 1321) Body mass index is 37.98 kg/m. Gen: No acute distress, cooperative. HEENT: atraumatic, hearing grossly intact. Conjugated EOM. Neck: Supple Heart: Well perfused, radial pulses symmetrical +2. Lungs: No use of accessory muscles of respiration. No labored breathing observed . Abdomen: Not distended. Soft Ext: WNL RLE. LLE wrapped, in boot. LLE hip incision with dressing in place, c/d /i, no erythema, no significant ttp Skin: No observed ulcers or pressure sores. Psych: mood and affect congruent. NMS Exam: Gait: not assessed. Mental status: alert, oriented to person/place, and time. Short term memory reca ll of hospital course events and 3-word recall within normal limits. Speech: comprehensible, fluent and coherent. Cranial Nerves: intact visual mg, conjugated EOM. No evidence of facial droo p. Hearing grossly intact. Motor: no pronator drift, no tremors noted. UE and LE bilateral MMT 5/5 symmetri juan, except LLE. Sensation: grossly intact sensation to light touch except LLE Coordination: Intact FTN Intake/Output Summary: No intake or output data in the 24 hours ending 06/01/21 1323 Stool Occurrence: 1 (06/01/2021 11:56 AM) Last Bowel Movement Date: 05/30/21 (06/01/2021 8:30 AM) Basic Metabolic Profile Lab Results Component Value Date/Time NA 137 05/29/2021 10:55 AM K 4.4 05/29/2021 10:55 AM CA 8.0 (L) 05/29/2021 10:55 AM CL 103 05/29/2021 10:55 AM CO2 30 05/29/2021 10:55 AM Lab Results Component Value Date/Time BUN 11 05/29/2021 10:55 AM CR 0.93 05/29/2021 10:55 AM GLU 254 (H) 05/29/2021 10:55 AM CBC w diff Lab Results Component Value Date/Time WBC 10.4 05/29/2021 10:55 AM RBC 2.63 (L) 05/29/2021 10:55 AM HGB 8.1 (L) 05/29/2021 10:55 AM HCT 24.9 (L) 05/29/2021 10:55 AM MCV 94.7 05/29/2021 10:55 AM MCH 30.8 05/29/2021 10:55 AM RDW 19.3 (H) 05/29/2021 10:55 AM PLTCT 104 (L) 05/29/2021 10:55 AM MPV 9.0 05/29/2021 10:55 AM Lab Results Component Value Date/Time NEUT 33 (L) 02/02/2021 01:39 PM ANC 5.29 02/02/2021 01:39 PM LYMA 63 (H) 02/02/2021 01:39 PM ALC 9.99 (H) 02/02/2021 01:39 PM DANII 3 (L) 02/02/2021 01:39 PM AMC 0.42 02/02/2021 01:39 PM EOSA 1 02/02/2021 01:39 PM AEC 0.20 02/02/2021 01:39 PM BASA 0 02/02/2021 01:39 PM ABC 0.07 02/02/2021 01:39 PM Radiology: CT LOWER EXTREM WO CONT LEFT Result Date: 05/23/2021 CT ABD/PELV WO CONTRAST, CT LOWER EXTREM WO CONT LEFT Clinical Indication: Fall, trauma, pain, left femoral fracture Technique: Multiple contiguous helical axial imaging was performed through the abdomen and pelvis and left lower extremity without IV contrast. Sagittal and coronal reformations were rendered utilizing Olo axial image data set area Comparison: no prior studies CT abdomen findings: Multivessel calcified atherosclerotic disease noted. Lung bases are clear with n o pleural pericardial effusion. Previous median sternotomy is noted. Evaluation of the abdominal and pelvic viscera and vasculature is limited without use of IV contrast. There is mildly elongated Wesly's lobe. Spleen is normal in size. The pancreas and adrenal glands unremarkable. Kidneys are normal in size without h ydronephrosis. The abdominal aorta is normal in caliber. There is moderate calci fied S chronic disease of the aorta and branch vasculature. There is no retroper itoneal adenopathy or upper abdominal ascites. Prior cholecystectomy is noted. N o acute compression the lumbar spine. CT pelvis findings: Previous total left hi p arthroplasty is noted. The uterus grossly unremarkable. Urinary bladder is dec ompressed around a Marrero catheter. There is no bowel obstruction. The appendix i s normal. There is no iliac or inguinal adenopathy. The sacrum and SI joints pippa ssly unremarkable. No pelvic ascites. CT left lower extremity findings: Previous total left hip arthroplasty is noted. There is comminuted fracturing through the proximal femoral diaphysis with slight overriding and lateral apex angulation the fracture site. Fracturing is noted across the base the greater trochanter. T he acetabular component is intact and the femoral head component maintains its a rticulation with the acetabular component. 1. No evidence of major abdominal or pelvic visceral injury or hemoperitoneum. 2 . Periprosthetic proximal left femoral fracture. Finalized by Javier Tamez MD, PhD on 05/23/2021 10:47 PM. Dictated by Javier Tamez MD, PhD on 05/23/20 10:29 PM. ANKLE MIN 3 VIEWS RIGHT Result Date: 05/26/2021 Exam: FOOT 2 VIEW BILATERAL, ANKLE MIN 3 VIEWS RIGHT CLINICAL INDICATION: 71 yea rs Female. Pain COMPARISON: None. 1. No acute fracture or dislocation. 2. Mild degenerative arthritis of the fir st IP joint on the right and of the bilateral talonavicular joints. 3. There is prominent notching along the lateral aspect of the right second metatarsal head which could represent an old erosion. Finalized by Jung Aranda M.D. on 2:27 PM. Dictated by Jung Aranda M.D. on 05/26/2021 2:22 PM. FOOT 2 VIEW BILATERAL Result Date: 05/26/2021 Exam: FOOT 2 VIEW BILATERAL, ANKLE MIN 3 VIEWS RIGHT CLINICAL INDICATION: 71 yea rs Female. Pain COMPARISON: None. 1. No acute fracture or dislocation. 2. Mild degenerative arthritis of the fir st IP joint on the right and of the bilateral talonavicular joints. 3. There is prominent notching along the lateral aspect of the right second metatarsal head which could represent an old erosion. Finalized by Jung Aranda M.D. on 2:27 PM. Dictated by Jung Aranda M.D. on 05/26/2021 2:[address] ABD/PELV WO CONTRAST Result Date: 05/23/2021 CT ABD/PELV WO CONTRAST, CT LOWER EXTREM WO CONT LEFT Clinical Indication: Fall, trauma, pain, left femoral fracture Technique: Multiple contiguous helical axial imaging was performed through the abdomen and pelvis and left lower extremity without IV contrast. Sagittal and coronal reformations were rendered utilizing [facility] axial image data set area Comparison: no prior studies CT abdomen findings: Multivessel calcified atherosclerotic disease noted. Lung bases are clear with n o pleural pericardial effusion. Previous median sternotomy is noted. Evaluation of the abdominal and pelvic viscera and vasculature is limited without use of IV contrast. There is mildly elongated Wesly's lobe. Spleen is normal in size. The pancreas and adrenal glands unremarkable. Kidneys are normal in size without h ydronephrosis. The abdominal aorta is normal in caliber. There is moderate calci fied S chronic disease of the aorta and branch vasculature. There is no retroper itoneal adenopathy or upper abdominal ascites. Prior cholecystectomy is noted. N o acute compression the lumbar spine. CT pelvis findings: Previous total left hi p arthroplasty is noted. The uterus grossly unremarkable. Urinary bladder is dec ompressed around a Marrero catheter. There is no bowel obstruction. The appendix i s normal. There is no iliac or inguinal adenopathy. The sacrum and SI joints pippa ssly unremarkable. No pelvic ascites. CT left lower extremity findings: Previous total left hip arthroplasty is noted. There is comminuted fracturing through the proximal femoral diaphysis with slight overriding and lateral apex angulation the fracture site. Fracturing is noted across the base the greater trochanter. T acetabular component is intact and the femoral head component maintains its a rticulation with the acetabular component. 1. No evidence of major abdominal or pelvic visceral injury or hemoperitoneum. 2 . Periprosthetic proximal left femoral fracture. Finalized by Javier Tamez MD, PhD on 05/23/2021 10:47 PM. Dictated by Javier Tamez MD, PhD on 05/23/20 10:29 PM. FLUORO MOBILE IN OR Result Date: 05/25/2021 This order has been auto finalized and does not contain a result. Chart reviewed. Vitals signs, labs, rehab therapy notes and technical solutions consultant's notes rachel nevarez. Case discussed with attending physician. Javon Richter M.D. Physical Medicine and Rehabilitation (PM&R) Resident Physician documented in this encounter Consult Notes * Romy Castillo RN - 06/04/2021 1:22 PM CDT Associated Order(s): CONSULT DIABETES NURSE EDUCATOR INPATIENT DIABETES EDUCATION TEAM Clinical Excellence Nursing Practice Reason for Consult: Uncontrolled hyperglycemia Discussed consult with MATT Poe, NCM. This consult team does not write orders. Primary Team is responsible for placing orders. Supplies/Resources provided: Blood Glucose Monitoring / Hemoglobin A1c handout Hyper / Hypoglycemia handouts Nutrition Tips handout [employer] Patient Assistance Application Novo - Medicare Extra Help brochure Met with Tanja Deal to discuss blood sugars, insulins, and home glucose monitoring. Discussed the following with patient; handouts provided: Diabetes disease process: Patient living with Type 2 Diabetes. Patient indic ates her also had diabetes and she assisted with his care and insulins, both Novolog and Lantus. Patient currently follows with PCP, but also has seen a [facility] provider in [place] that has assisted with trimming her nails. Provide d patient with [facility] scheduling ph# if she would want / need to establis h care with one of diabetic care specialists. Monitoring and glucose goals: Patient reports she has a meter and test strip s at home, however, states she rarely checks her blood sugars. Instructed patien t to make sure the test strips have not . Offered meter and/or prescripti on, however, patient says she can reach out to PCP if she needs a new meter and/ or supplies. Encouraged patient to begin checking AM fasting blood sugar for the Lantus that has been added to her medication regimen in the evening. Discussed goals of 80-130 prior to meals, or up to 180 random glucose level. Encouraged serene yakelin to complete log provided at least 4-5 days prior to her next appointment w ith PCP and to take log to the appointment. Instructed patient to call her diabe jame provider for glucose consistently above 250 or below 70 after treatment. Medication: Reviewed with patient Lantus action time. Patient says she has a lready been injecting insulin and familiar with insulins. Patient says the $105 co-pay for a box of Lantus is affordable. After calculating current dose, it bertha ears that a box (1500u) will last her approximately 90-days. Patient says in the past she was able to obtain free insulin for Novolog even though on Medicare. P rovided patient with [employer] Patient Assistance application so she may complete p atient section and take to her next PCP appointment for physician to complete an d fax. Also provided patient with information for Medicare Extra Help; if frankie jacob, it would bring down costs for her medications. Nutrition / Meals: Director Business Intelligence consulted and patient was seen on 06/03/21. Hypoglycemia: Discussed s/s, definition, prevention and treatment. Reviewed Rule of 15. Pt reports vaious hypo events/ week; however, does not perform finge rstick to determine blood sugar. Encouraged patient to perform blood sugar check if feeling symptomatic to ensure of correct treatment plan. Also discussed [facility] dean blood sugar following treatment to ensure low blood sugar adequately above 70mg/dL Hyperglycemia: Discussed s/s, definition, prevention and treatment. Reviewed meaning of HbA1c, current A1c 9.4% and goal of < 7%. Sick day management: Encouraged to stay hydrated, take medications as ordere d, and check glucose more frequently. Also, to contact PCP, urgent care, or ED w hen appropriate. Provided handout. Appreciate this consult. TIA Stanton, RN Nursing Clinical Excellence - Dice Table Person (P) [phone] 08:00-4:30 weekdays, If no response, please call team pager ([phone]) Diabetes Education Team office ([phone]) Available on Voalte. * Dominique Gore, SEAN - 06/03/2021 1:31 PM CDT Associated Order(s): CONSULT DIETITIAN CLINICAL NUTRITION Clinical Nutrition Consult Summary Name: Tanja Deal (Dee) : 1950 Age: 71 y.o. Admission Date: 06/01/2021 LOS: 2 days Comments: 71-year oldfemalewitha past medical historyof hypertension, CLL with ass ociated thrombocytopenia, CAD status post CABG, type 2 diabetes, CKD, history of left hip fracture status post arthroplasty on 05/25/[address] Wu , history of stroke without late effects of weakness. [facility] a fall during which the patient lost her balance while stepping over a cur b landing onto her right side, denying loss of consciousness or hitting her head . She was found to have a left periprosthetic femur fracture and is now status p ost ORIF of periprosthetic left femur fracture. Along her hospitalization, IM service was consulted for geriatric trauma and to help manage multiple medical c omorbidities including postoperative pain, blood loss anemia, type 2 diabetes re quiring insulin therapy, CKD stage III, depression. Pt admitted to IR[facility] 06/01/21. RD consulted on admission. RD met with pt at bedside today. Per chart review, pt has had T2DM for about 30 years. Pt reports that she has previously attended diabetes education classes. Noted that is has been a few years since she attended these classes with her late at [place] and the [place]. She reports that she doesn't count out carbs exactly, but has learned how many carbs are in certain foods she eats. States she doesn't eat bread and p otatoes and mainly eats meat, vegetables, and fruit. She did add that she knows not to eat too much fruit as it makes her blood sugar spike. Pt states that she drinks diet soda and tea sweetened with splenda. She stated that she feels like she knows what shes doing with nutrition, but its just a matter of actually doin g what she has learned. Denied a need for further education. Pt has been eating adequately and reports good appetite. Denies n/v/d, but reports that she has has some constipation from the meds she is on. At home is on metformin and insulin. Pt not at acute nutritional risk at this time. Will continue to monitor. Apprec iate consult. Nutrition Assessment of Patient: Desired Weight: 59.7 kg BMI (Calculated): 37.98; BMI Categories Adult: Obesity Class II: 35-39.9; Pertinent Allergies/Intolerances: none reported Oral Diet Order: Diabetic 5989-0859 Kcal/day (60 g carb/meal, 30 g carb/HS snack ); Current Oral Intake: Adequate Estimated Calorie Needs: 2718-6002 kcals (25-35 kcals/kg desired wt) Estimated Protein Needs: 48-72 grams (0.8-1.2 g/kg desired wt) Malnutrition Assessment: Adequately nourished prior to admission; Dominique Gore, MS, RDN, LD Available on Voalte * Ines Rowland - 06/02/2021 10:50 AM CDT Associated Order(s): CONSULT NEUROREHABILITATION PSYCHOLOGY Neurorehabilitation Psychology 10:20-10:50 Pt was seen for initial evaluation with no family or significant oth ers present. Diagnosis: F41.9 Anxiety; S72.009A Hip Fracture; r/o cognitive impairment Requesting Physician: Jennifer Richter/Terri Reason for Request: Coping Relevant History: The following history was taken from available medical records unless otherwise indicated. Pt is a 71 y.o., , female, RH admitted on 05/23 to [facility]. Pt presentedfollowing a fall during which the patient lost her ba santino while stepping over a curb landing onto her right side, denying loss of co nsciousness or hitting her head. She was found to have a left periprosthetic fem ur fracture and is now status post ORIF of periprosthetic left femur fracture. Along her hospitalization, IM service was consulted for geriatric trauma and to help manage multiple medical comorbidities including postoperative pain, blood l oss anemia, type 2 diabetes requiring insulin therapy, CKD stage III, depression . PM&R physician consulted to help with post-acute care needs. Patient has been working with physical and occupational therapy [id number] has been making functional gains. PLOF was independent. She lives alone and family and friends can provide limited assistance. She lives in an apartment w/o stairs. She owns a SPC. CLOF is SBA with eating and grooming, modA with LED and minAx2 with gait using RW, Osmany with bed mobility, modA with transfers. [facility] On 06/01/2021, pt was transferred to inpatient rehab for continued acute medical management, nursing cares, and comprehensive therapies. Medical/Surgical History: Hypertension, CKD, history of left hip fracture Medical History: Diagnosis Date Anxiety 03/17/2016 Arrhythmia Patient denies Arthritis Back pain Cardiac arrhythmia Chest pain Coronary artery disease Essential hypertension 03/16/2016 Fibromyalgia No current treatment required Gout Heart attack (HCC) 03/14/2016 History of non-ST elevation myocardial infarction (NSTEMI) 03/14/2016 Hyperlipidemia 03/16/2016 Hypothyroid 03/16/2016 Kidney insufficiency 07/09/19 BUN/Cr: 26/1.23 - Monitored by PCP Morbid obesity with BMI of 40.0-44.9, adult ([facility]) 03/17/2016 Neuropathy Patient denies Numbness and tingling in left hand Due to CVA Osteoarthritis Stroke ([facility]) 03/22/2016 RUE weakness Thyroid disease Type II diabetes mellitus ([facility]) 03/16/2016 Managed with metformin & glimepiride Surgical History: Procedure Laterality Date HX HEART CATHETERIZATION 03/2016 Lt Heart Cath With Ventriculogram Left 03/17/2016 Performed by Lenin Coreas MD at [facility] G[facility]IN [facility] Coronary Angiography N/A 03/17/2016 Performed by Lenin Coreas MD at [facility] BYPASS GRAFT CORONARY ARTERY, SIOBHAN, EVH N/A 03/22/2016 Performed by Demarco Byrd MD at [facility] CVOR HIP SURGERY Left 09/09/2016 L hip/ Pelvis - fracture repair ARTHROPLASTY TOTAL KNEE Left 08/28/2019 Performed by Uday Sánchez MD at [facility] OR MANIPULATION KNEE JOINT UNDER GENERAL ANESTHESIA Left 12/18/2019 Performed by Uday Sánchez MD at [facility] OR OPEN TREATMENT WITH INTERNAL FIXATION OF PERIPROSTHETIC LEFT FEMUR FRACTURE Left 05/25/2021 Performed by Raman Wu MD at [facility] OR CARDIAC SURGERY CHOLECYSTECTOMY [place] postoperative KNEE REPLACEMENT KNEE SURGERY Family Medical History: Family History Problem Relation Age of Onset Heart Attack Mother Heart Attack Father Hypertension Father Arthritis Father Diabetes Father Cancer Sister Cancer Brother Hypertension Daughter Dementia Neg Hx Social/Vocational History: Pt is and lives alone. Pt identified her chil alann and grandchildren as members of her social support network. 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 Pt did not report a history of tobacco, alcohol, or recreational drug use. Pt reported a history of anxiety and depression after her . Pt has a history of using Xanax, Haldol, and Restoril. Pt is currently prescribed Atarax 25mg PRN and Zoloft 100mg daily. Pt did not rep ort a history psychotherapy, psychiatric hospitalizations, LD/SPED/ADHD, or SI/S A. Findings: Pt was alert, mostly oriented (reported the day as ), and open /responsive to inquiry. The utility of testing was discussed and pt agreed to pa rticipate. Pt was cooperative and appeared to put forth adequate effort. Speech was WNL, and thought processes were connected and logical to content of conversa tion. Eye contact was within social norms and non-verbal behaviors were within s ocial norms. Mood and affect were congruent and euthymic. Pts reported mood was medium and pt did not endorse pervasive negative mood, suicidal ideation, or thoughts of harm toward self or others. Pt reported losing her first at age 25 and her second 5 years ago. Pt reported she is the matriarch of her family and enjoys being in control. She reported he bec omes anxious when she does not have control over situations. Sleep was rated as good with no reported history of sleep difficulty. Appetite was rated as good an d pt did not report any nausea or vomiting. Pain was reported as a 2/10 on eval, with an average of 10/10 in the last 24 hours, which pt indicated was manageable and to which the pt reported medications are effective. Pt did not report javier ges in cognition. Pt reported using crafting and her ken as coping or relaxati on strategies and has hobbies of spending time with her children and grandchildr en. Screening for anxiety symptomatology was administered with results indicating mi ld anxiety symptomatology (DARIO-7=5), and pt endorsed symptoms over the last 2 we eks including restlessness and irritability for more days than half, and nervous ness for several days. Mood screening for depressive symptomatology was administ ered with results indicating no significant depressive symptomatology (GDS-15=2) with pt endorsing symptoms over the last week including preference to stay to in and fatigue. Pt was provided with eval results and psychoeducation regarding cognition, pain, stress management, the cognitive-behavioral model, mood, and coping; and the pt was open/receptive to feedback. Supportive therapy was provided. Pt's coping sk ills, personal strengths, and goals/motivators were reviewed and reinforced. Pt acknowledged information and willingness to try skills as needed or as prompted by staff. The intent and utility of testing was relayed, and pt agreed to partic ipate as needed. The purpose and method of the neurorehabilitation psychology se rvice, as well as the limits of confidentiality, were described to the pt. The p t verbalized understanding and agreement to participate in the evaluation. Rehabilitation Recommendations: 1. Pt's cognition, mood, coping, and pain management will be monitored with mahendra tment initiated as indicated. 2. Pt and family will be provided with feedback and education as appropriate. 3. Due to time constraints, provider was unable to administer cognitive screenin g. Will return to administer. 4. Pt may benefit from reminders or cues to use coping strategies such as relaxe d breathing or visualization. Expected Outcomes: 1. Pt will participate appropriately in rehabilitation therapy services. 2. Pt will likely require assistance at home to be provided by family. Thank you for asking our advice and opinion regarding the care of this pleasant pt. Ines Rowland M.A. Neurorehabilitation Rec Therapist Pager #: [phone] On Voalte * Heydi Marques MD - 06/01/2021 3:03 PM CDT Associated Order(s): CONSULT ENDOCRINOLOGY PHYSICIAN Endocrinology Consult - Initial Consultation Note Admission Date: 06/01/2021 Active Problems: Type II diabetes mellitus (HCC) Essential hypertension Hypothyroid Hyperlipidemia Class 2 severe obesity due to excess calories with serious comorbidity and bod y mass index (BMI) of 37.0 to 37.9 in adult (HCC) Anxiety CKD (chronic kidney disease) stage 3, GFR 30-59 ml/min (HCC) Dyslipidemia associated with type 2 diabetes mellitus (HCC) CVA (cerebral vascular accident) (HCC) CAD (coronary artery disease) S/P CABG (coronary artery bypass graft) Left foot drop Hip fracture (HCC) Thrombocytopenia (HCC) Impaired mobility and ADLs Impaired functional mobility, balance, gait, and endurance Tanja Deal is a 71 y.o. female who was admitted with a left periprosthet ic femur fracture with resulting ORIF. The patent has persistent deficits and g oals with PT, OT, and complexity including post operative pain, blood loss anemi a, Hx of HTN, CAD/CABG, CVA, CKD stage III, type 2 DM, now requiring closer pool toring as physical requirements in rehabilitation Reason for consult: Diabetes Mgmt Assessment: Diabetes Mellitus Type 2, Uncontrolled - Dx: 30 years - Follows with PCP (KAILEY zendejas) for diabetes care. - A1c: 8.1% - [employer] regimen: Xigduo XR 10-1000mg daily, Basaglar 10 u at HS - upon d/c from inpatient: Novolog 8u, Lantus 20 u HS, HDCF - Hypoglycemic episodes on this regimen: none - DM complications assessment: neuropathy and CKD stage 3; CAD; CVA - Risk Factor assessment: zetia, fish oil Osteoporosis - by definition of hip fracture with fall from standing height - fell from standing height --> left hip fracture age 66. Screws placed ([place]). - Hip replacement in March 2021 (Neeta Eduardo) - This admit - fall with left hip periprosthetic fracture - She thinks her mom might have had osteoporosis. - has never received tx for. 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 - AM glucose at or near goal - reduce Lantus 18u daily - Most recently; prandial BG at or near goal - continue Novolog 8 u TID AC - would reduce to MDCF - ordered - POC ACHS - resume metformin 500mg BID AC - continue statin - would benefit from DM ed and teaching. Thyroid - TSH at goal; continue current levothyroxine dose Vit D deficiency - check level - continue Vit D for now. Bone health eval as outpatient - f/u requested She lives in [facility]. She'd like to est with BOB peacock - I agree. Thank you for this consult; Endocrine will continue to follow If questions between 8am and 5pm - please page [phone]. Please page Endocrine Fruit Pitter after hours. __ History of Present Illness: Tanja Deal is a 71 y.o. female who was admitted with a left periprosthet ic femur fracture with resulting ORIF. The patent has persistent deficits and g oals with PT, OT, and complexity including post operative pain, blood loss anemi a, Hx of CKD stage III, type II DM, now requiring closer monitoring as physical requirements in rehabilitation She was dx with Dm > 30 years ago. Managed by a REGIONAL BUSINESS DEVELOPMENT MANAGER - Guillermina Andre. She did she an endo in [place] a time ago, and she was placed on basaglar and Xigduo. When she was first dx, she was placed on metformin; started insulin 10 years ago . She was not checking BG at home; she will if she needs to. Denies any si/sx of h ypoglycemia She reports in 100s after she eats. She doesn't really know how to take insulin to correspond with BG values. Xigduo never bothered her GI system . She has a great appetite. She is surprised to know A1c is 8.1% She reports it was 7% in January or February 2021 She has no retinopathy - dilated eye exam May 2021. She does have neuropathy and CKD. She has CVA and CAD. She had only broken a bone (hip) at age 66 --> screws placed ([place]). She had a new hip revision in March 2021 (Neeta Eduardo) - and now this fall resulted in another fracture. She has never had tx of osteoporosis or has been told she has osteoporosis. She thinks her mom might have had osteoporosis. She takes vit 1000 IU daily. She hasn't been taking this very long. She does not get calcium in diet much. Couple times a week - cheese and yogurt. No hx of kidney stones. No family hx of stones or fractures. Medical History: Diagnosis Date Anxiety 03/17/2016 Arrhythmia Patient denies Arthritis Back pain Cardiac arrhythmia Chest pain Coronary artery disease Essential hypertension 03/16/2016 Fibromyalgia No current treatment required Gout Heart attack (HCC) 03/14/2016 History of non-ST elevation myocardial infarction (NSTEMI) 03/14/2016 Hyperlipidemia 03/16/2016 Hypothyroid 03/16/2016 Kidney insufficiency 07/09/19 BUN/Cr: 26/1.23 - Monitored by PCP Morbid obesity with BMI of 40.0-44.9, adult ([facility]) 03/17/2016 Neuropathy Patient denies Numbness and tingling in left hand Due to CVA Osteoarthritis Stroke ([facility]) 03/22/2016 RUE weakness Thyroid disease Type II diabetes mellitus ([facility]) 03/16/2016 Managed with metformin & glimepiride Surgical History: Procedure Laterality Date HX HEART CATHETERIZATION 03/2016 Lt Heart Cath With Ventriculogram Left 03/17/2016 Performed by Lenin Coreas MD at [facility] Coronary Angiography N/A 03/17/2016 Performed by Lenin Coreas MD at [facility] G[facility] BYPASS GRAFT CORONARY ARTERY, SIOBHAN, EVH N/A 03/22/2016 Performed by Demarco Byrd MD at [facility] CVOR HIP SURGERY Left 09/09/2016 L hip/ Pelvis - fracture repair ARTHROPLASTY TOTAL KNEE Left 08/28/2019 Performed by Uday Sánchez MD at [facility] OR MANIPULATION KNEE JOINT UNDER GENERAL ANESTHESIA Left 12/18/2019 Performed by Uday Sánchez MD at [facility] OR OPEN TREATMENT WITH INTERNAL FIXATION OF PERIPROSTHETIC LEFT FEMUR FRACTURE Left 05/25/2021 Performed by Raman Wu MD at 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 Tobacco Use Smoking status: Never Smoker Smokeless tobacco: Never Used Vaping Use Vaping Use: Never used Substance and Sexual Activity Alcohol use: Not Currently Alcohol/week: 0.0 standard drinks Drug use: Never Sexual activity: Not on file Other Topics Concern Not on file Social History Narrative Not on file Immunizations (includes history and patient reported): Immunization History Administered Date(s) Administered COVID-19 (MODERNA), mRNA vacc, 100 mcg/0.5 mL (PF) 12/11/2020, 01/08/2021 Flu Vaccine =>65 YO High-Dose (PF) 07/09/2019 Pneumococcal Vaccine(13-Eileen Peds/immunocompromised adult) 06/14/2015 Allergies: Prednisone, Lisinopril, and Naproxen Medications: Medications Prior to Admission Medication Sig acetaminophen (TYLENOL) 325 mg tablet Take two tablets by mouth every 6 hour s while awake. albuterol 0.083% (PROVENTIL) 2.5 mg /3 mL (0.083 %) nebulizer solution Inhal e 2.5 mg solution by nebulizer as directed every 4 hours as needed for Wheezing or Shortness of Breath. allopurinol (ZYLOPRIM) 300 mg tablet Take 300 mg by mouth daily. aspirin EC 81 mg tablet Take one tablet by mouth twice daily for 35 days. Ta ke with food. bisacodyL (DULCOLAX) 10 mg rectal suppository Insert or Apply one suppositor y to rectal area as directed once for 1 dose. carvediloL (COREG) 3.125 mg tablet Take one tablet by mouth twice daily. Byron e with food. cholecalciferol (VITAMIN D-3) 5000 unit tablet Take 5,000 Units by mouth henri ly. colchicine 0.6 mg tablet Take 0.6 mg by mouth daily as needed. Gout dapagliflozin-metformin (XIGDUO XR) 10-1,000 mg TBph Take 1 tablet by mouth daily. ezetimibe (ZETIA) 10 mg tablet Take one tablet by mouth daily. fish oil /omega-3 fatty acids (SEA-OMEGA) 340/1000 mg capsule Take 2,000 mg by mouth twice daily. [START ON 06/02/2021] gabapentin (NEURONTIN) 100 mg capsule Take two capsules by mouth daily. hydrOXYzine HCL (ATARAX) 25 mg tablet Take one tablet by mouth three times d aily as needed. insulin aspart (U-100) (NOVOLOG FLEXPEN U-100 INSULIN) 100 unit/mL (3 mL) in jection PEN Inject zero Units to twenty four Units under the skin before meals a nd 2200. insulin aspart (U-100) (NOVOLOG FLEXPEN U-100 INSULIN) 100 unit/mL (3 mL) in jection PEN Inject eight Units under the skin three times daily with meals. insulin glargine (LANTUS SOLOSTAR U-100 INSULIN) 100 unit/mL (3 mL) injectio n PEN Inject twenty Units under the skin at bedtime daily. ipratropium/albuterol (COMBIVENT) 103/18 mcg/Actuation inhaler Inhale 2 puff s by mouth into the lungs daily as needed. [START ON 06/02/2021] levothyroxine (SYNTHROID) 88 mcg tablet Take one tablet by mouth daily. [START ON 06/02/2021] lidocaine (LIDODERM) 5 % topical patch Apply one patch topically to affected area daily. Apply patch for 12 hours, then remove for 12 h ours before repeating. Magnesium Oxide 500 mg tab Take 500 mg by mouth twice daily. melatonin (MELATIN) 3 mg tablet Take one tablet by mouth at bedtime daily. methocarbamoL (ROBAXIN) 500 mg tablet Take one tablet by mouth three times d aily. [START ON 06/02/2021] milk of magnesia (CONC) 2,400 mg/10 mL oral suspension Take 10 mL by mouth daily. Geaabovjzkjwn-Ti-Isgm-Minerals 18-0.4 mg tab Take 1 tablet by mouth daily. oxyCODONE (ROXICODONE) 5 mg tablet Take one tablet to two tablets by mouth e very 4 hours as needed oxymetazoline (AFRIN) 0.05 % nasal spray Apply 2 sprays to each nostril as d irected twice daily as needed. pantoprazole DR (PROTONIX) 40 mg tablet Take one tablet by mouth daily. polyethylene glycol 3350 (MIRALAX) 17 g packet Take one packet by mouth twic e daily. rosuvastatin (CRESTOR) 40 mg tablet TAKE 1 TABLET EVERY DAY senna/docusate (SENOKOT-S) 8.6/50 mg tablet Take two tablets by mouth twice daily. sertraline (ZOLOFT) 100 mg tablet Take 1 tablet by mouth daily. spironolactone (ALDACTONE) 25 mg tablet TAKE 1 TABLET EVERY DAY WITH FOOD vitamins, multiple tablet Take 1 tablet by mouth daily. Review of Systems: A 10 point review of system was negative except for: hip pain Physical Exam: Vital Signs: Last Filed In 24 Hours Vital Signs: 24 Hour Range BP: 125/45 (06/01 1321) Temp: 37.1 C (98.8 F) (06/01 1321) Pulse: 62 (06/01 1321) Respirations: 19 PER MINUTE (06/01 1321) SpO2: 96 % (06/01 1321) Height: 154.9 cm (61") (06/01 1321) BP: (125-144)/(42-54) Temp: [36.7 C (98.1 F)-37.2 C (98.9 F)] Pulse: [62-68] Respirations: [16 PER MINUTE-20 PER MINUTE] SpO2: [94 %-98 %] General: Alert, cooperative, no distress, appears stated age Head: Normocephalic, without obvious abnormality, atraumatic Eyes: Conjunctivae/corneas clear. ENT: Moist mucous membranes Lungs: No respiratory distress Skin: warm and dry Lab: 24-hour labs: No results found for this visit on 06/01/21 (from the past 24 claire r(s)). Glucose, POC Date/Time Value Ref Range Status 06/01/2021 1207 154 (H) 70 - 100 MG/DL Final 06/01/2021 0739 103 (H) 70 - 100 MG/DL Final 06/01/2021 0309 106 (H) 70 - 100 MG/DL Final 05/31/2021 2058 137 (H) 70 - 100 MG/DL Final 05/31/2021 1625 190 (H) 70 - 100 MG/DL Final 05/31/2021 1148 201 (H) 70 - 100 MG/DL Final 05/31/2021 0802 105 (H) 70 - 100 MG/DL Final 05/30/2021 2115 189 (H) 70 - 100 MG/DL Final Radiology and other Diagnostics Review: Pertinent radiology reviewed. Heydi Marques MD [phone] documented in this encounter Miscellaneous Notes * Case Mgmt DC Deepika Dykes RN - 06/07/2021 8:33 AM CDT Case Management Progress Note NAME:Tanja Wang "Janeen Deal :1950 AGE: 71 y.o. ADMISSION DATE: 06/01/2021 DAYS ADMITTED: LOS: 6 days Todays Date: 06/07/2021 Plan Anticipate discharge with HH PT/OT/RN. Interventions Support Support: Pt/Family Updates re:POC or DC Plan Info or Referral Discharge Planning Discharge Planning: Durable Medical Equipment and Supplies, Home Health NCM contacted [facility] and updated pt is on track for discharge today. Faxed signed HH orders and AVS. Wheelchair from [employer] delivered to bedside this morning. Hospital bed from [facility] will be delivered to pt home today. [facility] has contacted pt. Wound dressings now q48 hours. RN to provide supplies and HH orders updated. Confirmed pt is still agreeable to [facility] in [place]. Pharmacy aware. Medication Needs Financial Legal Other Disposition Expected Discharge Date 06/07/2021 Transportation Does the Patient Need Case Management to Arrange Discharge Transport? (ex: faci lity, ambulance, wheelchair/stretcher, Medicaid, cab, other): No Will the Patient Use Family Transport?: Yes Transportation Name, Phone and Availability #1: Leanne, Transportation Name, Phone and Availability #2: Rachael Robin, Next Level of Care (Acute Psych discharges only) Discharge Disposition Selected Continued Care - Admitted Since 06/01/2021 Durable Medical Equipment Service Provider Selected Services Address Phone Fax Patient Preferred [facility] [address] [facility] [address] Home Care Service Provider Selected Services Address Phone Fax Patient Preferred [facility] Home Health Services [address] [facility] [address] [phone] Deepika WEBER, RN, CRRN [facility] Pager: [phone] * Case Mgmt DC Plan - Deepika Law RN - 06/04/2021 8:18 AM CDT Case Management Progress Note NAME:Tanja Wang "Janeen Deal :1950 AGE: 71 y.o. ADMISSION DATE: 06/01/2021 DAYS ADMITTED: LOS: 3 days Todays Date: 06/04/2021 Plan Anticipate discharge on 06/07 with HH PT/OT/RN. Interventions Support Support: Pt/Family Updates re:POC or DC Plan Met with pt to review DCP. Pt remains agreeable. [facility] required printed scripts. Pt agreeable to fill at [email or web address] in [facility]. Plan for discharge near noon on 06/07. Info or Referral Discharge Planning Discharge Planning: Durable Medical Equipment and Supplies, Home Health Confirmed [facility] has received all needed documentation for hospital bed. Will be delivered to the home on Monday. [facility] to call family to arrange delivery. Confirmed [employer] will deliver wheelchair on Monday between 10-11 AM. Faxed signed RX to [facility]. Sent HH orders to attending for signature. Medication Needs Case management to wolfe affordable basal insulin for patient - she is getting b asaglar as samples only and cannot afford it otherwise. Communicated with pharmacy and DM eductor. Lantus co pay is $105/1 box (likely would last ~ 100 days). Reviewed with pt. Sharon mckeon is agreeable to co pay. She has plan to call her PCP/Endo if this medications becomes unaffordable to her. She will discuss further with DM educator today. Financial Legal Other Disposition Expected Discharge Date 06/07/2021 Transportation Does the Patient Need Case Management to Arrange Discharge Transport? (ex: faci lity, ambulance, wheelchair/stretcher, Medicaid, cab, other): No Will the Patient Use Family Transport?: Yes Transportation Name, Phone and Availability #1: Leanne, Transportation Name, Phone and Availability #2: Rachael Robin, Next Level of Care (Acute Psych discharges only) Discharge Disposition Selected Continued Care - Admitted Since 06/01/2021 Durable Medical Equipment Service Provider Selected Services Address Phone Fax Patient Preferred [employer] [facility] [address] [address] Home Care Service Provider Selected Services Address Phone Fax Patient Preferred [facility] [address] [address] Deepika WEBER, RN, CRRN [facility] Pager: [phone] * Rehab Care Plan - Rose Gomez MD - 06/03/2021 11:56 AM CDT Physical Medicine & Rehabilitation Individualized Overall Plan of Care Date of Service: 06/03/2021 Name: Tanja Deal (Dee) : 1950 Age: 71 y.o. Admission Date: 06/01/2021 LOS: 2 days Insurance: Medicare Date of Admission: 06/01/2021 Hospital Course: is a 71 year oldfemalewith a past medical hist ory of hypertension, CLL with associated thrombocytopenia, CAD status post CABG, type 2 diabetes, CKD, history of left hip fracture status post arthroplasty, hi story of stroke without late effects of weakness. Patient [facility] to [facility] on [facility]23 following a fall during which the patient lost her balance while stepping over a curb landing onto her right side, denying loss of consciousness or hitting her head. She was found to have a left periprosthet ic femur fracture and is now status post ORIF of periprosthetic left femur fract ure on 05/25. Medicine service was consulted for geriatric trauma and to help m anage multiple medical comorbidities including postoperative pain, blood loss an emia, type 2 diabetes requiring insulin therapy, CKD stage III, depression. Patient has been working with physical and occupational therapy since rehab admi ssion and has been making functional gains. Patient is anticipated to return to home at the modified independent level of care. Rehab Diagnosis: fracture - hip Pain and Weakness Medical Course since IRF Admission: The patients clinical course since admission has been stable. The patient lakhani s been able to participate fully in the rehabilitation program due to improving pain and mobility, and we have addressed in the following ways: monitoring pain medications, labs, and working on home DME needs. Medical Prognosis: Good The patient has a reasonable likelihood of fully participating in and completing the IRF stay based on ability to manage medical issues including hip fracture, hx stroke, CAD, HLD, HTN, DM2, concern for osteoporosis, BANG on CKD, CLL. There is a reasonable expectation of several years of productive life in a community setting in which they will benefit from this stay. This patient meets medical necessity requiring the intensity of therapy availabl e at the [facility]. The patient can participate i n and can fully benefit from the services offered in the IRF setting including 2 4 hour rehabilitation nursing, daily oversight from the Keeper Head, and complex interdisciplinary rehab as noted below. Quality Indicators: Current Level of Function Evaluation QI Current QI Transfer: Sit to stand assist level: Minimum assistance Gait Distance: 4 feet GAIT: Assist Level: Minimum assistance Gait: Assistive Device: Roller Walker Wheelchair: Distance: 25 feet Wheelchair: Assistance Level: Minimum assistance Grooming Assist: Stand By Assist Bathing Assist: Shower, Minimal Assist UE Dressing Assist: Stand By Assist LE Dressing Assist: Moderate Assist Toileting Assist: Minimal Assist Toilet Transfer Assist: Minimum assistance Shower Transfer Assist: Minimum assistance Patient continent of bladder?: Yes, void Patient continent of bowel?: Yes, no bowel program Nutritional Diet: Diabetic (Standard) consistent carb Transfer: Sit to stand ass ist level: Minimum assistance Gait Distance: 4 feet GAIT: Assist Level: Minimum assistance Gait: Assistive Device: Roller Walker Wheelchair: Distance: 510 feet Wheelchair: Assistance Level: Stand by assistance Grooming Assist: Stand By Assist Bathing Assist: Shower, Minimal Assist UE Dressing Assist: Stand By Assist LE Dressing Assist: Moderate Assist Toileting Assist: Minimal Assist Toilet Transfer Assist: Minimum assistance Shower Transfer Assist: Minimum assistance Patient continent of bladder?: Yes, void Patient continent of bowel?: Yes, no bowel program Nutritional Diet: Diabetic (Standard) consistent carb Physical Therapy Goals Patient will perform: at wheelchair level, household mobility, Modified independ ent Occupational Therapy Goals Pt will perform basic care and transfer with: Modified independence Speech Therapy Goals Nursing Goals Additional therapeutic disciplines may be included during this stay if indicated during interdisciplinary communication and will be noted in the daily progress notes when relevant. Social Work will address discharge planning needs. Rehabilitation Plan Patient will receive Physical therapy and Occupational therapy each 90 minutes a day , 5 days a week for a total of 3 hours daily (minimum) for the duration of the rehabilitation stay within an interdisciplinary rehabilitation program with onsite case manager/social welfare research worker, energy rater, neuropsychologist, rehab nursing and PM&R oversight. Rehabilitation Prognosis: Good, anticipate steady functional gains with PT, OT, and 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 WORKER to return home with family support. Tolerance for three hours of therapy a day: Good, patient is tolerating 3 hours of therapy per day, as required. Goals/Barriers/Facilitators Family / Patient Goals: Patient would like to regain strength and endurance to s afely return home. Mobility Goals: Updated per therapy evaluation as above Activities of Daily Living (ADLs) Goals: Updated per therapy evaluation as above . Cognition / Communication Goals: Updated per therapy evaluation as above. Discharge Planning Expected Length of Stay 1 week(s) Expected Discharge Disposition Home Expected Discharge Needs PT, OT, Hospital Bed and Wheelchair The patient should reach their current goals by noted projected discharge date. This plan of care was formulated based upon a review of the progress this patien t made with therapies during the acute hospital stay, the goals set by the [facility] [place] rehabilitation therapists at the time of their initial assessment, and my e xpertise in caring for patients with this rehabilitation diagnosis and accompany ing comorbidities. Rose Gomez MD 06/03/21 11:56 AM * Case Mgmt DC Plan - Deepika Law RN - 06/03/2021 11:28 AM CDT Case Management Progress Note NAME:Tanja Deal (Dee) :1950 AGE: 71 y.o. ADMISSION DATE: 06/01/2021 DAYS ADMITTED: LOS: 2 days Todays Date: 06/03/2021 Plan Tentative discharge on 06/07 with PT/OT/RN. Interventions Support Support: Pt/Family Updates re:POC or DC Plan Rehab team agreeable for discharge on 06/07. Updated pt who is pleased with new D C date. Updated [facility] has accepted. Pt agreeable to use [employer] for wheelchair order and continue with [facility] for hospital bed. Pt reports her grandson will provide transport home Monday and will arrive near 10-11 AM. DM educator to see pt tomorrow 1230-130 PM. Info or Referral Discharge Planning Discharge Planning: Durable Medical Equipment and Supplies, Home Health Sent hospital bed order to [facility]. Confirmed order was received. Sent wheelchair order to [facility]. Requested delivery to bedside on 06/07. Confirmed order received and pt is eligible for a new wheelchair (previously rec eived one in 2016). Contacted [facility] and notified of DC on 06/07. Medication Needs Financial Legal Other Disposition Expected Discharge Date 06/09/2021 Transportation Does the Patient Need Case Management to Arrange Discharge Transport? (ex: faci lity, ambulance, wheelchair/stretcher, Medicaid, cab, other): No Will the Patient Use Family Transport?: Yes Transportation Name, Phone and Availability #1: Leanne, Transportation Name, Phone and Availability #2: Rachael Robin, Next Level of Care (Acute Psych discharges only) Discharge Disposition Selected Continued Care - Admitted Since 06/01/2021 No services have been selected for the patient. Deepika WEBER, RN, CRRN [facility] Pager: [phone] * Case Mgmt DC Plan - Deepika Law RN - 06/02/2021 11:35 AM CDT Case Management Progress Note NAME:Tanja Deal (Dee) :1950 AGE: 71 y.o. ADMISSION DATE: 06/01/2021 DAYS ADMITTED: LOS: 1 day Todays Date: 06/02/2021 Plan Tentative discharge on 06/09 with HH PT/OT/RN. Interventions Support Support: Pt/Family Updates re:POC or DC Plan NCM attended team conference and met with pt to provide updates and assist with discharge planning. Discussed tentative discharge on 06/09 with recommendations for HH, wheelchair, ho spital bed, and family support. Pt reports she will have her dgtr Kayleigh stay with her at discharge for as long as needed. Kayleigh is not able to provide physical assistance. Pt would like [facility] PT/OT/RN arranged (was on service with them previousl y). Pt agreeable to wheelchair and reports she obtained a hospital bed 5 y/o from [facility] [place] P [phone]. She has called [facility] and they ar e told he is eligible for a new bed. NCM agreeable to help arrange. Pt does not have a preference for [employer] for wheelchair. Pt agreeable to meet with DM educator prior to discharge. Scheduled for Monday 06/04 from 1230-130 PM. Updated therapy to block schedule. If pt needs to fill at retial pharmacy she prefers [facility] in [facility]. Up dated pharmacy. Pt will not need lovenox at discharge. Pt reports having a small threshold to get into the home. She states she has a c ompany to build a ramp if needed. Her dgtr's is an RN and can bump her u p if needed. Denies needing resources. Pt agreeable to DC date if neccessary but would prefer to discharge earlier on . She reports she feels has all the support needed at home. NCM agreeable to discuss with team. Info or Referral Discharge Planning Discharge Planning: Durable Medical Equipment and Supplies, Home Health Faxed referral to [facility] for PT/OT/RN P [phone] or [phone]/F . Contacted [facility] P [phone]/F [phone]. Pt is eligible for a new h ospital bed but will need a new order and new documentation. Pt obtained bed d/t previous stroke. Updated primary PT. Will send wc order once documentation obtained. Medication Needs Financial Legal Other Disposition Expected Discharge Date 06/09/2021 Transportation Does the Patient Need Case Management to Arrange Discharge Transport? (ex: faci lity, ambulance, wheelchair/stretcher, Medicaid, cab, other): No Will the Patient Use Family Transport?: Yes Transportation Name, Phone and Availability #1: Leanne, Transportation Name, Phone and Availability #2: Rachael Robin, Next Level of Care (Acute Psych discharges only) Discharge Disposition Selected Continued Care - Admitted Since 06/01/2021 No services have been selected for the patient. Deepika WEBER, RN, CRRN [facility] Pager: [phone] * Rehab Team Conference - Mayuri Briggs RN - 06/02/2021 10:50 AM CDT Team Conference Note Date of Admission: 06/01/2021 Date of Team Conference: 06/02/2021 Tanja Deal is a 71 y.o. female. : 1950 MRN# : [id number] Team Conference Attendees: Rose Gomez, Attending Physician; Javon Richter , Resident Physician; Reena Ornelas SW, Social Work; Deepika Law RN, Nurse Ca se Team Automobile Assembler; Deepika Javier PhD, Neurorehabilitation Psychology Postdoctoral [facility]; Mayuri Briggs RN, Office Executive; Anant Tang OTR, Occ upational Therapy; Tamra Rutherford DPT, Physical Therapy; Steve Vo 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 WORKER, [facility] Therapy; Ines Perez PharmD, Pharmacy; Dominique Gore RD LD, Clinic al Nutrition; Marina Hadley RN, Nursing Medical Update: 71 y.o. female admitted for left hip fracture on 06/01/2021 Current medical issues: - left hip fracture status post ORIF,pain under appropriate control, CTM dressin g PCP follow up appointment: We currently have Guillermina Davis at [phone] on file. Additional follow up appointments: [facility] Ortho (Dr Wu 3w) Team Goal: Patient will perform mobility and self-cares with modified independen ce, wheelchair Discharge Planning Discharge Date: 06/09/2021 Patient lives alone in one story home. Home has walk in shower with grab bars. H ome does not have steps to enter. Prior to admission, patient independent with all ADLs. Patient managed her own m edications. Zenaida has three daughters who can assist intermittently at discharge. Patient has hx of [facility], HH and OP Therapy. Patient typically uses a pyramid cane "3-pronged walker" for ambulation. Patient also owns a walker, shower chair and grab bars. Patient has Medicare A & B, Medicare supplement, and RX Coverage. Plan for patient to discharge home. Plan : Home with home health PT/OT, home with family for 2-3 days DME : Wheelchair, hospital bed, small ramp into home Rehabilitation Plan Progress Therapy evaluations in progress Barriers/Concerns Medication management Plan No c/o pain this shift. Pt has surgical incision on LLE with aquacel- ALEJANDRO wrap if swelling. No safety concerns Weekly Team Goals Diabetic education Medication management Have patient administer insulin Ramp plan? Picture to come Quality Indicators Swallowing/Nutritional Status: Regular food Bladder Continence: 0-Always continent Bowel continence: 0-Always continent Associated attestation - Rose Gomez MD - 06/02/2021 4:41 PM CDT I personally led the interdisciplinary team meeting and concur with all decision s made by the interdisciplinary team. Rose Gomez MD * Case Mgmt DC Plan - Reena Vigil - 06/01/2021 3:08 PM CDT Case Management Admission Assessment NAME:Tanja Deal (Dee) :1950 AGE: 71 y.o. ADMISSION DATE: 06/01/2021 DAYS ADMITTED: LOS: 0 days Todays Date: 06/01/2021 Source of Information: Patient Plan Plan: Case Management Assessment SW completed initial assessment with patient. Patient lives alone in one story home. Home has walk in shower with grab bars. H ome does not have steps to enter. Prior to admission, patient independent with all ADLs. Patient managed her own m edications. Zenaida has three daughters who can assist intermittently at discharge. Patient has [facility], HH and OP Therapy. Patient typically uses a pyramid cane for ambulation. Patient also owns a walker , shower chair and grab bars. Patient has [employer] A & B, [employer] supplement, and RX Coverage. Plan for patient to discharge home. Patient Address/Phone [address] [id number] (home) Emergency Contact Extended Emergency Contact Information Primary Emergency Contact: Lynette Tapia [facility] Relation: Daughter Secondary Emergency Contact: Leanne Whipple [facility] Relation: Daughter Healthcare Directive Healthcare Directive: Yes, patient has a healthcare directive Type of Healthcare Directive: Durable power of pantry goods worker for healthcare Location of Healthcare Directive: Patient does not have it with him/her Would patient like to fill out a (a new) Healthcare Directive?: No, patient decl ined Psych Advance Directive (Psych unit only): No, patient does not have a Psych Adv ance Directive Transportation Does the Patient Need Case Management to Arrange Discharge Transport? (ex: facil ity, ambulance, wheelchair/stretcher, Medicaid, cab, other): No Will the Patient Use Family Transport?: Yes Transportation Name, Phone and Availability #1: Leanne, Transportation Name, Phone and Availability #2: Rachael Robin, Expected Discharge Date Living Situation Prior to Admission Living Arrangements Type of Residence: Home, independent Living Arrangements: Alone Bathroom Shower / Tub: Walk-in Shower How many levels in the residence?: 1 Can patient live on one level if needed?: Yes Does residence have entry and/or side stairs?: No Assistance needed prior to admit or anticipated on discharge: Yes Who provides assistance or could if needed?: Friends Are they in good health?: Yes Can support system provide 24/7 care if needed?: No Level of Function Prior level of function: Independent Cognitive Abilities Cognitive Abilities: Alert and Oriented, Participates in decision making, Recogn izes impact of health condition on lifestyle, Engages in problem solving and billy nning Financial Resources Coverage Primary Insurance: Medicare Secondary Insurance: Medicare Supplement Additional Coverage: RX Source of Income Source Of Income: SSI Financial Assistance Needed? No Psychosocial Needs Mental Health Mental Health History: Yes Agency name: PCP Mental Health Provider: Dr. Davis Mental Health Symptoms: Excessive fears/worries Substance Use History Substance Use History Screen: No Other No Current/Previous Services PCP Guillermina Davis, , Pharmacy [facility] - [place], [place] - [address] [address] [facility] - [place], [place] - [address] [facility] [address] [facility] [address] Durable Medical Equipment Durable Medical Equipment at home: Pyramid Cane, Shower Chair, Walker, Grab bars Home Health Receiving home health: In the past Agency name: Cannot recall agency name Hemodialysis or Peritoneal Dialysis Undergoing hemodialysis or peritoneal dialysis: No Tube/Enteral Feeds Receive tube/enteral feeds: No Infusion Receive infusions: No Private Duty Private duty help used: No Home and Community Based Services Home and community based services: No Steve Carcamo: N/A Hospice Hospice: No Outpatient Therapy PT: In the past When did patient receive care?: [facility] in [place], [place] OT: No 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 WORKER: No Longterm Facility/Fpc SNF: In the past When did patient receive care?: 2016 Name of Facility: [facility] Would patient return for future services?: No NH: No Inpatient Rehab IPR: No Long-Term Acute [facility] Hospital LTACH: No Acute Hospital Stay Acute Hospital Stay: No Reena Ornelas LMSW APHSW-C *0320 or Dinah * Rehab Pre-Admission Screening - Jasmine Torres RN - 06/01/2021 10:44 AM CDT Physical Medicine & Rehabilitation Pre-Admission Screening Tanja Deal is a 71 y.o. female. : 1950 Primary Insurance: MEDICARE Secondary Insurance: CIG[employer] Financial Class: Medicare Date of Hospital Admission: 05-23-2021 Date of Expected Rehab Admission: 06-01-2021 Precautions: Fall Weight bearing Precautions: TTWB LLE Medical Course Hospital Course: is a 71 year oldfemalewith a past medical history of hypertensi on, CLL with associated thrombocytopenia, CAD status post CABG, type 2 diabetes, CKD, history of left hip fracture status post arthroplasty, history of stroke w ithout late effects of weakness. Patient [facility] on [facility] following a fall during which the patient lost her balance while stepping over a curb landing onto her right side, denying loss of consciousness or hitting her head. She was found to have a left periprosthetic femur fracture and is now status post ORIF of periprosthetic left femur fracture on 05/25. Nm dicine service was consulted for geriatric trauma and to help manage multiple in dical comorbidities including postoperative pain, blood loss anemia, type 2 diab etes requiring insulin therapy, CKD stage III, depression. Patient has been working with physical and occupational therapy since 05-26-2021 and has been making functional gains. Patient is anticipated to return to home a t the modified independent level of care. Prior Level of Function Self-Care/ADLs: Independent with ADLs and functional transfers Mobility: Independent Mobility in Community with Device Work/Personal Responsibilities/Hobbies: n/a Home Environment: Home Situation: Lives Alone (05/31/2021 3:00 PM) Patient Owned Equipment: Single Point Cane (05/31/2021 3:00 PM) Type of Home: Apartment (05/31/2021 3:00 PM) Entry Stairs: No Stairs (05/31/2021 3:00 PM) In-Home Stairs: No Stairs (05/31/2021 3:00 PM) Support System: Lives Alone / has family and friends that can assist if needed. Current Level of Function Physical Therapy: 05-31-2021 Bed Mobility/Transfer Bed Mobility: Sit to Supine: Minimal Assist;Bed Flat;Requires Extra Time Transfer Type: Sit to/from Stand;Stand Pivot (chair-->BSC-->chair-->bed) Transfer: Assistance Level: Moderate Assist;of 1st person;Minimal Assist;of 2nd person Transfer: Assistive Device: Roller Walker Comments: For the most part, pt opts for NWB instead of TTWB. As she fatigues, requires assistance to maintain WB precaution. Pt can pivot/shuffle L or R, b ut has trouble backing up. Unable to functionally hop at this time. Balance Sitting Balance: Standby Assist Standing Balance: 2 UE support;Moderate Assist;x2 People Occupational Therapy: 05-31-2021 Vision Current Vision: Wears Glasses Only for Reading ADL's Where Assessed: Edge of Bed;Chair Eating Assist: Independent Grooming Assist: Stand By Assist Grooming Deficits: Setup LE Dressing Assist: Moderate Assist LE Dressing Deficits: Don/Doff R Sock;Don/Doff L Sock (unable to anisha L sock, Ab le to don R sock) ADL Mobility Bed Mobility: Supine to Sit: Minimal assist Transfer Type: Sit to stand Transfer: Assistance Level: From;To;Bed;Moderate assist;of 1st person;Standby as sist;of 2nd person Transfer: Assistive Device: Hand hold assist;Roller walker Transfer: Type of Assistance: For strength deficit;For safety considerations Other Transfer Type: Stand pivot Other Transfer: Assistance Level: From;Bed;To;Bedside chair;Moderate assist;of 1 st person;Minimal assist;of 2nd person (physical cues for TTWB) Other Transfer: Assistive Device: Roller walker Other Transfer: Type of Assistance: To maintain precautions;For safety considera tions;For strength deficit End of Activity Status: Nursing notified;Up in chair Sitting Balance: Standby assist Standing Balance: Minimal assist Gait Distance: 2 feet Gait: Assistance Level: Minimal assist;x2 people Gait: Assistive Device: Roller walker Gait Comments: Pt able to follow TTWB to NWB of LLE during stand pivot with RW t his day. Cognition Overall Cognitive Status: WFL to Adequately Complete Self Care Tasks Safely Rehabilitation Plan Rehab Diagnosis and conditions that require Rehabilitation: fracture - hip Pain and Weakness Active Comorbidities/Risk of Medical Complications: 1. Hip Fx: Patient [facility] to [facility] on [facility]23 follow ing a fall during which the patient lost her balance while stepping over a curb landing onto her right side, denying loss of consciousness or hitting her head. She was found to have a left periprosthetic femur fracture and is now status pos t ORIF of periprosthetic left femur fracture on 05/25. 2. Weight Bearing Limitation: Patient is currently in TTWB LLE. Patient will wor k with PT to help improve strength, balance and endurance while safely maintaini ng that weight bearing status in order to prevent further injury. 3. Anemia: Will need to monitor and manage, as this may negatively impact patien t's endurance with therapy. 4. Depression: Will need to monitor and manage, as this may negatively impact serene hamlin's participation in therapy. Consult Neuropsychology. 5. Diabetes: Patient is at risk for hyper/hypoglycemia during aggressive mobiliz ation with therapies, and will need daily physician monitoring and adjustment of medications. Patient may benefit from ongoing education from diabetes nurse ed ucator for healthy lifestyle modifications. 6. Falls: Patient will be placed close to the nurse's station for closer monito ring. Staff will round on the patient frequently to assess for any needs, such a s using the restroom to help prevent falls as this increases the patient's risk for morbidity/mortality and 30 day readmission to the hospital rate. 7. Hyperlipidemia: Will continue to monitor and manage, and adjust medications a s needed. 8. Hypertension: Patient is at risk for hyper/hypotension during aggressive mobi lization program with therapies, and requires daily physician monitoring and adj ustment of medications. Will continue to monitor and manage for optimal blood p ressure control and resume home medications as able. 9. Hypothyroidism: Will continue to monitor and manage, and adjust medications a s needed. 10. Morbid Obesity: Patient's BMI is 37.[address] at a higher risk of medical complications including DVTs and decubitus ulcers as well as poor post-o perative mobility and performance. Consult Director Business Intelligence on recommendations for hea lthy diet. 11. Neuropathy: Patient is at increased risk for wounds, falls, and gait abnorma lity and needs rehabilitation nursing care to reinforce proper safety and skin p recautions. Teach daily skin checks with rehabilitation nursing. 12. Risk for Pain: There is a risk of uncontrolled pain, risk of failure to part icipate in therapies, and risk of sedation due to pain medications. This will require daily medication adjustments to find the balance between meaningful part icipation in therapies and pain control, avoid the potential for addiction, whil e facilitating the rehabilitation for their condition. Will continue to monitor and adjust medication regimen in order to maximize pain relief. 13. Thrombocytopenia: Patient is at risk for bleeding and needs daily physician monitoring of labs and blood loss prevention. 14. Risk for Thrombosis: Patient has Lovenox, sequential compression devices ord ered. Patient will be encouraged to ambulate frequently with the assistance of health care provider. Patient will receive Physical therapy and Occupational therapy each 90 minutes a day , 5 days a week for a total of 3 hours daily (minimum) for the duration of the rehabilitation stay within an interdisciplinary rehabilitation program with onsite case manager/social welfare research worker, energy rater, neuropsychologist, rehab nursing and PM&R oversight. Rehabilitation Prognosis: Fair to good Medical Prognosis: The patient is deemed medically stable to tolerate, benefit f rom, and participate in IRF level services. Tolerance for three hours of therapy a day: Good. Patient has participated well with therapies since 05-26-2021 in the acute care setting and is anticipated to t olerate 3 hours of therapy per day, as required. Goals/Barriers/Facilitators Family / Patient Goals: return home alone Mobility Goals: Overall goal is Independent and Physical Therapy will evaluate a nd treat ambulation/wheelchair use and bed transfers Activities of Daily Living (ADLs) Goals: Overall goal is Independent and Occupat ional therapy will evaluate and treat basic Activities of Daily Living Cognition / Communication Goals: Cognition grossly intact and Speech intact Barriers & Interventions: Caregiver Apprehension: Arrange caregiver support and discuss barriers and patient progress with caregivers when appropriate. [place] of Care: Initiate interdisciplinary rehabilitation to improve functi onal independence and reduce burden of care. Medication Education: Pharmacist and nursing staff to provide education to juan carlos ent and family regarding medication side effects, special precautions, and safe administration. Facilitators: good home setup, good family / social support, patient motivation, improving strength / endurance and improving medical condition Discharge Planning Expected Length of Stay 10 day(s) Expected Discharge Disposition Home TIA Mathews, RN Associated attestation - Donnell Baumann MD - 06/01/2021 10:50 AM CDT I have reviewed this pre-admission screen and approve the recommendations and pl ans for admission. Tanja Deal is a 71 y.o. female who was admitted with a left periprosthet ic femur fracture with resulting ORIF. The patent has persistent deficits and g oals with PT, OT, and complexity including post operative pain, blood loss anemi a, Hx of CKD stage III, type II DM, now requiring closer monitoring as physical requirements in rehabilitation increase and potentially impacting functional rec overy, which puts the patient at risk of DVT and pressure injury to skin in the setting of decreased mobility. Additionally, the patient will likely benefit fr om aggressive clinical education including management of safe mobility to ensure fall prevention, to improve compliance and reduce likelihood of complication or readmission to acute care. All of these clinical issues require daily physician oversight to reach target clinical and functional goals prior to discharge home. The patient is clinically/medically stable for admission to acute inpatient rehabilitation at this time. Treatment Plan (including disciplines, frequency and duration) We will initiate a comprehensive rehab program working on strengthening, enduran ce and safety with regard to transfer training, ambulation, dressing, bathing an d grooming. Rehab nursing will be involved to monitor bowel and bladder functio n, skin integrity, administration of medications and family and patient educatio n and therapy carryover. The patient will have intensive therapies with physical therapy 1.5 hour(s), occ upational therapy 1.5 hour(s), for a minimum of 3 hours a day 5 days a week for the duration of the acute inpatient rehabilitation stay. Donenll Baumann MD documented in this encounter Plan of Treatment [...] Procedure Name Priority Date/Time Associated Diag nosis POC GLUCOSE 06/07/2021 8:15 AM CDT HC [...] POC GLUCOSE 06/02/2021 12:10 PM CDT HC BASIC METABOLIC PANEL Routine 06/02/2021 (CH7CT) 9:58 AM CDT HC CBC AUTOMATED (HPCT) Routine 06/02/2021 9:58 AM CDT HC 25-OH VITAMIN D Routine 06/02/2021 9:58 AM CDT POC GLUCOSE 06/02/2021 7:20 AM CDT POC GLUCOSE 06/01/2021 9:35 PM CDT POC GLUCOSE 06/01/2021 4:37 PM CDT documented in this encounter Results * POC GLUCOSE (06/07/2021 8:15 AM CDT) Glucose, POC 99 70 - 100 MG/DL MAIN LAB Specimen Performing Organization Address City/State/ZIP Code P curry Number MAIN LAB [address] [place] [address] * BASIC METABOLIC PANEL CELLULAR THERAPEUTICS (06/07/2021 8:00 AM CDT) Pathologist [facility] Sodium 139 137 - 147 MMOL/L KU [...] (L) >60 mL/min KU MAIN LAB Comment: Iranian The eGFR is not validated f or use in drug dosing adjustments. Continue to use estimated creatinine clearance per dosing reference text. Please contact the Clinical Pharmacist for questions. eGFR >60 >60 mL/min KU MAIN LAB Iranian Comment: The eGFR is not validated for use in drug dosing adjustments. Continue to use estimated creatinine clearance per dosing reference text. Please contact the Clinical Pharmacist for questions. Specimen Blood Performing Organization Address City/State/ZIP Code P curry Number KU MAIN LAB [address] [place] [address] * CBC CELLULAR THERAPEUTICS (06/07/2021 8:00 AM CDT) Pathologist [facility] White Blood 9.5 4.5 - 11.0 K/UL KU MAIN LAB Cells RBC 2.98 (L) 4.0 [...] Platelet Count 265 150 - 400 K/UL KU MAIN LAB MPV 7.9 7 - 11 FL [facility]U MAIN LAB Specimen Blood Performing Organization Address City/State/ZIP Code P curry Number [facility] MAIN LAB [address] [place] [address] * POC GLUCOSE (06/06/2021 9:56 PM CDT) Glucose, POC 132 (H) 70 - 100 MG/DL KU MAIN LAB Specimen Performing Organization Address City/[facility] Code P curry Number KU MAIN LAB [address] [place] [address] * POC GLUCOSE (06/06/2021 4:59 PM CDT) Glucose, POC 121 (H) 70 - 100 MG/DL KU MAIN LAB Specimen Performing Organization Address City/[facility] P curry Number KU MAIN LAB [address] [place] [address] * POC GLUCOSE (06/06/2021 11:41 AM CDT) Glucose, POC 127 (H) 70 - 100 MG/DL K[facility] MAIN LAB Specimen Performing Organization Address [facility] P curry Number MAIN LAB [address] [place] [address] * BASIC METABOLIC PANEL CELLULAR THERAPEUTICS (06/06/2021 9:43 AM CDT) Sodium 139 137 - 147 MMOL/L KU MAIN LAB Potassium 3.6 3.5 - 5.1 MMOL/L K[facility] MAIN LAB Chloride 103 98 - 110 MMOL/L KU MAIN LAB CO2 26 21 - 30 MMOL/L KU MAIN LAB Anion Gap 10 3 - 12 KU MAIN LAB Glucose 183 (H) 70 - 100 MG/DL K[facility] MAIN LAB Blood Urea 15 7 - 25 MG/DL K[facility] MAIN LAB Nitrogen Creatinine 1.05 (H) 0.4 - 1.00 MG/DL KU MAIN LAB Calcium 8.9 8.5 - 10.6 MG/DL KU MAIN LAB eGFR Non 52 (L) >60 mL/min MAIN LAB Comment: Iranian The eGFR is not validated f or use in drug dosing adjustments. Continue to use estimated creatinine clearance per dosing reference text. Please contact the Clinical Pharmacist for questions. eGFR >60 >60 mL/min KU MAIN LAB Iranian Comment: The eGFR is not validated for use in drug dosing adjustments. Continue to use estimated creatinine clearance per dosing reference text. Please contact the Clinical Pharmacist for questions. Specimen Blood Performing Organization Address [facility]/ZIP Code P curry Number MAIN LAB [address] [place] [phone] * CBC CELLULAR THERAPEUTICS (06/06/2021 9:43 AM CDT) White Blood 12.2 (H) 4.5 - 11.0 K/UL MAIN LAB Cells RBC 2.98 (L) 4.0 - 5.0 M/UL KU MAIN LAB Hemoglobin 9.3 (L) 12.0 - 15.0 GM/DL MAIN LAB Hematocrit 28.2 (L) 36 - 45 % MAIN LAB MCV 94.8 80 - 100 FL MAIN LAB MCH 31.2 26 - 34 PG MAIN LAB MCHC 32.9 32.0 - 36.0 G/DL MAIN LAB RDW 20.2 (H) 11 - 15 % MAIN LAB Platelet Count 283 150 - 400 K/UL MAIN LAB MPV 8.5 7 - 11 FL MAIN LAB Specimen Blood Performing Organization Address City/[facility]/ZIP Code P curry Number MAIN LAB [address] [place] [address] * POC GLUCOSE (06/06/2021 7:17 AM CDT) Glucose, POC 128 (H) 70 - 100 MG/DL MAIN LAB Specimen Performing Organization Address City/[facility]/ZIP Code P curry Number MAIN LAB [address] [place] [address] * POC GLUCOSE (06/05/2021 9:43 PM CDT) Glucose, POC 115 (H) 70 - 100 MG/DL MAIN LAB Specimen Performing Organization Address City/[facility]/ZIP Code P curry Number MAIN LAB [address] [place] [address] * POC GLUCOSE (06/05/2021 4:48 PM CDT) Glucose, POC 124 (H) 70 - 100 MG/DL MAIN LAB Specimen Performing Organization Address City/[facility]/ZIP Code P curry Number MAIN LAB [address] [place] [address] * POC GLUCOSE (06/05/2021 11:35 AM CDT) Glucose, POC 130 (H) 70 - 100 MG/DL MAIN LAB Specimen Performing Organization Address City/[facility]/ZIP Code P curry Number MAIN LAB [address] [place] [address] * BASIC METABOLIC PANEL CELLULAR THERAPEUTICS (06/05/2021 8:06 AM CDT) Pathologist [facility] Sodium 139 137 - 147 MMOL/L KU MAIN LAB Potassium 3.6 3.5 - 5.1 MMOL/L KU MAIN LAB Chloride 104 98 - 110 MMOL/L KU MAIN LAB CO2 26 21 - 30 MMOL/L KU MAIN LAB Anion Gap 9 3 - 12 KU MAIN LAB Glucose 106 (H) 70 - 100 MG/DL KU MAIN LAB Blood Urea 12 7 - 25 MG/DL K[facility] MAIN LAB Nitrogen Creatinine 0.95 0.4 - 1.00 MG/DL KU MAIN LAB Calcium 8.6 8.5 - 10.6 MG/DL KU MAIN LAB eGFR Non 58 (L) >60 mL/min KU MAIN LAB Comment: Iranian The eGFR is not validated f or use in drug dosing adjustments. Continue to use estimated creatinine clearance per dosing reference text. Please contact the Clinical Pharmacist for questions. eGFR >60 >60 mL/min KU MAIN LAB Iranian Comment: The eGFR is not validated for use in drug dosing adjustments. Continue to use estimated creatinine clearance per dosing reference text. Please contact the Clinical Pharmacist for questions. Specimen Blood Performing Organization Address City/[facility]/ZIP Code P curry Number MAIN LAB [address] [place] [address] * CBC CELLULAR THERAPEUTICS (06/05/2021 8:06 AM CDT) Pathologist [facility] White Blood 14.8 (H) 4.5 - 11.0 K/UL KU MAIN LAB Cells RBC 2.68 (L) 4.0 - 5.0 M/UL KU MAIN LAB Hemoglobin 8.4 (L) 12.0 - 15.0 GM/DL KU MAIN LAB Hematocrit 24.9 (L) 36 - 45 % KU MAIN LAB MCV 93.3 80 - 100 FL KU MAIN LAB MCH 31.2 26 - 34 PG MAIN LAB MCHC 33.5 32.0 - 36.0 G/DL MAIN LAB RDW 20.7 (H) 11 - 15 % KU MAIN LAB Platelet Count 250 150 - 400 K/UL MAIN LAB MPV 8.2 7 - 11 FL MAIN LAB Specimen Blood Performing Organization Address City/[facility]/ZIP Code P curry Number MAIN LAB [address] [place] [address] * POC GLUCOSE (06/05/2021 7:17 AM CDT) Glucose, POC 104 (H) 70 - 100 MG/DL KU MAIN LAB Specimen Performing Organization Address City/State/ZIP Code P curry Number [facility] MAIN LAB [address] [place] [address] * POC GLUCOSE (06/04/2021 10:36 PM CDT) Glucose, POC 105 (H) 70 - 100 MG/DL KU MAIN LAB Specimen Performing Organization Address City/[facility]/ZIP Code P curry Number KU MAIN LAB [address] [place] [address] * POC GLUCOSE (06/04/2021 4:55 PM CDT) Glucose, POC 143 (H) 70 - 100 MG/DL MAIN LAB Specimen Performing Organization Address City/[facility] Code P curry Number MAIN LAB [address] [place] [address] * CULTURE-URINE W/SENSITIVITY (06/04/2021 12:00 PM CDT) Battery Name URINE CULTURE MAIN LAB Report Status FINAL 06/05/2021 MAIN LAB Specimen URINE MIDSTREAM MAIN LAB Description Special NONE MAIN LAB Requests Culture <100,000 CFU/ml MAIN LAB ESCHERICHIA COLI (A) Specimen Urine [...] 2: Susceptible Escherichia coli Performing Organization Address City/[facility] Code P curry Number KU MAIN LAB [address] [place] [address] * UA REFLEX LABEL (06/04/2021 12:00 PM CDT) UA Reflex Criteria for reflex to culture K[facility] CH[facility]STOS N LAB Culture are WBC>10, Positive Nitrit e, and/or >=+1 leukocytes. If quantity is not sufficient, an addendum will follow. Specimen Urine Performing Organization Address [facility] P curry Number KU MAIN LAB [address] [place] [address] * URINALYSIS MICROSCOPIC REFLEX TO CULTURE (06/04/2021 12:00 PM CDT) WBCs,UA 20-50 0 - 2 /HPF KU MAIN LAB RBCs,UA 2-10 0 - 3 /HPF KU MAIN LAB Comment,UA Criteria for reflex to culture [facility] are WBC>10, Positive Nitrite, and/or >=+1 leukocytes. If quantity is not sufficient, an addendum will follow. MucousUA TRACE KU MAIN LAB Squamous 0-2 0 - 5 KU MAIN LAB Epithelial Cells Specimen Urine Performing Organization Address [facility] P curry Number KU MAIN LAB [address] [place] [phone] * URINALYSIS DIPSTICK REFLEX TO CULTURE (06/04/2021 12:00 PM CDT) Color,UA ABELARDO KU MAIN LAB Turbidity,UA 1+ (A) CLEAR-CLEAR K[facility] MAIN LAB Specific 1.026 1.003 - 1.035 KU MAIN LAB [place]-Urine pH,UA 5.0 5.0 - 8.0 KU MAIN [...] Acid, UA Specimen Urine Performing Organization Address City/[facility]/ZIP Code P curry Number KU MAIN LAB [address] [place] [address] * POC GLUCOSE (06/04/2021 11:57 AM CDT) Glucose, POC 115 (H) 70 - 100 MG/DL KU MAIN LAB Specimen Performing Organization Address [facility] P curry Number KU MAIN LAB [address] [place] [address] * CHEST SINGLE VIEW (06/04/2021 11:13 AM [...] on 06/04/2021 1:07 PM. Performing Organization Address [facility]/ZIP Code P curry Number KU RAD RESULTS * BASIC METABOLIC PANEL CELLULAR THERAPEUTICS (06/04/2021 9:00 AM CDT) Sodium 138 137 - 147 MMOL/L KU MAIN LAB Potassium 4.1 3.5 - 5.1 MMOL/L [facility] MAIN LAB Chloride 104 98 - 110 MMOL/L K[facility] MAIN LAB CO2 27 21 - 30 MMOL/L K[facility] MAIN LAB Anion Gap 7 3 - 12 MAIN LAB Glucose 151 (H) 70 - 100 MG/DL K[facility] MAIN LAB Blood Urea 13 7 - 25 MG/DL K[facility] MAIN LAB Nitrogen Creatinine 0.95 0.4 - 1.00 MG/DL K[facility] MAIN LAB Calcium 8.6 8.5 - 10.6 MG/DL MAIN LAB eGFR Non 58 (L) >60 mL/min MAIN LAB Comment: Iranian The eGFR is not validated f or use in drug dosing adjustments. Continue to use estimated creatinine clearance per dosing reference text. Please contact the Clinical Pharmacist for questions. eGFR >60 >60 mL/min K[facility] MAIN LAB Iranian Comment: The eGFR is not validated for use in drug dosing adjustments. Continue to use estimated creatinine clearance per dosing reference text. Please contact the Clinical Pharmacist for questions. Specimen Blood Performing Organization Address City/[facility]/ZIP Code P curry Number MAIN LAB [address] [place] [address] * CBC CELLULAR THERAPEUTICS (06/04/2021 9:00 AM CDT) Pathologist [facility] White Blood 20.0 (H) 4.5 - 11.0 K/UL MAIN LAB Cells RBC 3.04 (L) 4.0 - 5.0 M/UL MAIN LAB Hemoglobin 9.5 (L) 12.0 - 15.0 GM/DL MAIN LAB Hematocrit 28.8 (L) 36 - 45 % MAIN LAB MCV 94.7 80 - 100 FL MAIN LAB MCH 31.3 26 - 34 PG MAIN LAB MCHC 33.0 32.0 - 36.0 G/DL MAIN LAB RDW 20.3 (H) 11 - 15 % MAIN LAB Platelet Count 288 150 - 400 K/UL MAIN LAB MPV 8.3 7 - 11 FL MAIN LAB Specimen Blood Performing Organization Address City/[facility]/ZIP [facility] P curry Number MAIN LAB [address] [place] [address] * POC GLUCOSE (06/04/2021 7:41 AM CDT) Pathologist [facility] Glucose, POC 100 70 - 100 MG/DL KU MAIN LAB Specimen Performing Organization Address City/[facility]/ZIP Code P curry Number KU MAIN LAB [address] [place] [address] * POC GLUCOSE (06/03/2021 10:23 PM CDT) Glucose, POC 135 (H) 70 - 100 MG/DL K[facility] MAIN LAB Specimen Performing Organization Address [facility]/ZIP Code P curry Number KU MAIN LAB [address] [place] [address] * POC GLUCOSE (06/03/2021 4:51 PM CDT) Glucose, POC 165 (H) 70 - 100 MG/DL K[facility] MAIN LAB Specimen Performing Organization Address City/[facility] Code P curry Number KU MAIN LAB [address] [place] [address] * POC GLUCOSE (06/03/2021 11:42 AM CDT) Glucose, POC 183 (H) 70 - 100 MG/DL K[facility] MAIN LAB Specimen Performing Organization Address [facility] P curry Number KU MAIN LAB [address] [place] [address] * POC GLUCOSE (06/03/2021 9:40 AM CDT) Glucose, POC 151 (H) 70 - 100 MG/DL K[facility] MAIN LAB Specimen Performing Organization Address [facility] P curry Number KU MAIN LAB [address] [place] [phone] * BASIC METABOLIC PANEL CELLULAR THERAPEUTICS (06/03/2021 8:48 AM CDT) Sodium 138 137 - 147 MMOL/L KU MAIN LAB Potassium 3.5 3.5 - 5.1 MMOL/L KU MAIN LAB Chloride 104 98 - 110 MMOL/L K[facility] MAIN LAB CO2 24 21 - 30 MMOL/L KU MAIN LAB Anion Gap 10 3 - 12 KU MAIN LAB Glucose 124 (H) 70 - 100 MG/DL KU MAIN LAB Blood Urea 13 7 - 25 MG/DL KU MAIN LAB Nitrogen Creatinine 0.84 0.4 - 1.00 MG/DL KU MAIN LAB Calcium 8.5 8.5 - 10.6 MG/DL KU MAIN LAB eGFR Non >60 >60 mL/min KU MAIN LAB Comment: Iranian The eGFR is not validated f or use in drug dosing adjustments. Continue to use estimated creatinine clearance per dosing reference text. Please contact the Clinical Pharmacist for questions. eGFR >60 >60 mL/min K[facility] MAIN LAB Iranian Comment: The eGFR is not validated for use in drug dosing adjustments. Continue to use estimated creatinine clearance per dosing reference text. Please contact the Clinical Pharmacist for questions. Specimen Blood Performing Organization Address City/[facility]/ZIP Code P curry Number KU MAIN LAB [address] [place] [address] * CBC CELLULAR THERAPEUTICS (06/03/2021 8:48 AM CDT) White Blood 15.0 (H) 4.5 - 11.0 K/UL KU MAIN LAB Cells RBC 2.95 (L) 4.0 - 5.0 M/UL K[facility] MAIN LAB Hemoglobin 9.2 (L) 12.0 - 15.0 GM/DL KU MAIN LAB Hematocrit 27.9 (L) 36 - 45 % KU MAIN LAB MCV 94.5 80 - 100 FL KU MAIN LAB MCH 31.3 26 - 34 PG KU MAIN LAB MCHC 33.1 32.0 - 36.0 G/DL KU MAIN LAB RDW 19.9 (H) 11 - 15 % KU MAIN LAB Platelet Count 237 150 - 400 K/UL KU MAIN LAB MPV 8.6 7 - 11 FL KU MAIN LAB Specimen Blood Performing Organization Address [facility] Code P curry Number K[facility] MAIN LAB [address] [place] [address] * POC GLUCOSE (06/03/2021 7:13 AM CDT) Glucose, POC 123 (H) 70 - 100 MG/DL K[facility] MAIN LAB Specimen Performing Organization Address City/[facility] P curry Number KU MAIN LAB [address] [place] [phone] * POC GLUCOSE (06/02/2021 9:52 PM CDT) Glucose, POC 160 (H) 70 - 100 MG/DL KU MAIN LAB Specimen Performing Organization Address City/[facility]/ZIP Code P curry Number KU MAIN LAB [address] [place] [phone] * POC GLUCOSE (06/02/2021 5:11 PM CDT) Glucose, POC 103 (H) 70 - 100 MG/DL KU MAIN LAB Specimen Performing Organization Address City/[facility]/ZIP Code P curry Number KU MAIN LAB [address] [place] [address] * POC GLUCOSE (06/02/2021 12:10 PM CDT) Glucose, POC 112 (H) 70 - 100 MG/DL K[facility] MAIN LAB Specimen Performing Organization Address City/[facility] P curry Number KU MAIN LAB [address] [place] [address] * 25-OH VITAMIN D (D2 + D3) (06/02/2021 9:58 AM CDT) Vitamin 41.3 30 - 80 NG/ML KU MAIN LAB D(25-OH)Total Specimen Blood Performing Organization Address City/[facility]/ZIP Code P curry Number KU MAIN LAB [address] [place] [phone] * BASIC METABOLIC PANEL CELLULAR THERAPEUTICS (06/02/2021 9:58 AM CDT) Sodium 140 137 - 147 MMOL/L KU MAIN LAB Potassium 3.7 3.5 - 5.1 MMOL/L K[facility] MAIN LAB Chloride 105 98 - 110 MMOL/L K[facility] MAIN LAB CO2 26 21 - 30 MMOL/L KU MAIN LAB Anion Gap 9 3 - 12 KU MAIN LAB Glucose 118 (H) 70 - 100 MG/DL K[facility] MAIN LAB Blood Urea 11 7 - 25 MG/DL KU MAIN LAB Nitrogen Creatinine 0.91 0.4 - 1.00 MG/DL KU MAIN LAB Calcium 8.6 8.5 - 10.6 MG/DL KU MAIN LAB eGFR Non >60 >60 mL/min KU MAIN LAB Comment: Iranian The eGFR is not validated f or use in drug dosing adjustments. Continue to use estimated creatinine clearance per dosing reference text. Please contact the Clinical Pharmacist for questions. eGFR >60 >60 mL/min KU MAIN LAB Iranian Comment: The eGFR is not validated for use in drug dosing adjustments. Continue to use estimated creatinine clearance per dosing reference text. Please contact the Clinical Pharmacist for questions. Specimen Blood Performing Organization Address City/[facility]/ZIP Code P curry Number MAIN LAB [address] [place] [phone] * CBC CELLULAR THERAPEUTICS (06/02/2021 9:58 AM CDT) White Blood 12.5 (H) 4.5 - 11.0 K/UL KU MAIN LAB Cells RBC 2.97 (L) 4.0 - 5.0 M/UL K[facility] MAIN LAB Hemoglobin 9.1 (L) 12.0 - 15.0 GM/DL MAIN LAB Hematocrit 28.2 (L) 36 - 45 % MAIN LAB MCV 94.9 80 - 100 FL MAIN LAB MCH 30.6 26 - 34 PG MAIN LAB MCHC 32.2 32.0 - 36.0 G/DL MAIN LAB RDW 20.9 (H) 11 - 15 % KU MAIN LAB Platelet Count 192 150 - 400 K/UL MAIN LAB MPV 8.3 7 - 11 FL MAIN LAB Specimen Blood Performing Organization Address [facility] P curry Number MAIN LAB [address] [place] [address] * POC GLUCOSE (06/02/2021 7:20 AM CDT) Glucose, POC 102 (H) 70 - 100 MG/DL MAIN LAB Specimen Performing Organization Address [facility] P curry Number MAIN LAB [id number] [place] [address] * POC GLUCOSE (06/01/2021 9:35 PM CDT) Glucose, POC 128 (H) 70 - 100 MG/DL KU MAIN LAB Specimen Performing Organization Address [facility] P curry Number MAIN LAB [id number] [place] [address] * POC GLUCOSE (06/01/2021 4:37 PM CDT) Glucose, POC 145 (H) 70 - 100 MG/DL MAIN LAB Specimen Performing Organization Address [facility] P curry Number MAIN LAB [address] [place] [address] documented in this encounter Visit Diagnoses Diagnosis Hip fracture (HCC) - Primary Closed fracture of unspecified part of neck of femur Anxiety Anxiety state, unspecified Class 2 severe obesity due to excess ca lories with serious comorbidity and body mass index (BMI) of 37.0 to 37.9 in adult (HCC) 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 (HCC) Closed fracture of left hip with routin e healing, subsequent encounter Impaired functional mobility, balance, gait, and endurance Type II diabetes mellitus (HCC) Type II or unspecified type diabetes me llitus without mention of complication, not stated as uncontrolled Essential hypertension Unspecified essential hypertension Hypothyroid Unspecified hypothyroidism Hyperlipidemia Other and unspecified hyperlipidemia CKD (chronic kidney disease) stage 3, G FR 30-59 ml/min ([facility]) Chronic kidney disease, Stage III (mode rate) Dyslipidemia associated with type 2 marjan betes mellitus ([facility]) Type II or unspecified type diabetes me llitus with other specified manifestations, not stated as uncontrolled CVA (cerebral vascular accident) ([facility]) Unspecified cerebral artery occlusion w ith cerebral infarction CAD (coronary artery disease) Coronary atherosclerosis of unspecified type of vessel, sitka or graft S/P CABG (coronary artery bypass graft) Postsurgical aortocoronary bypass statu s Thrombocytopenia ([facility]) Thrombocytopenia, unspecified Left foot drop Other acquired deformity of ankle and f oot Impaired mobility and ADLs Mechanical problems with limbs documented in this encounter Administered Medications Action Date Dose Rate Site Medication Order MAR Action 06/07/2021 8:18 AM CDT 650 mg acetaminophen (TYLENOL) tablet 650 mg Given 650 mg, Oral, EVERY 6 HOURS WHILE AWAKE, First dose (after last modification) on Mon06/01/21 at 1500, Until Discontinued, TOTAL ACETAMINOPHEN DOSE NOT TO EXCEED 4GM DAILY 650 mg Given 06/06/2021 8:34 PM CDT 650 mg Given 06/06/2021 3:12 PM CDT 650 mg Given 06/06/2021 9:24 AM CDT 650 mg Given 06/05/2021 8:34 PM CDT 650 mg Given 06/05/2021 3:28 PM CDT 650 mg Given 06/05/2021 9:24 AM CDT 650 mg Given 06/04/2021 10:36 PM CDT 650 mg Given 06/04/2021 5:36 PM CDT 650 mg Given 06/04/2021 8:18 AM CDT 650 mg Given 06/03/2021 8:58 PM CDT 650 mg Given 06/03/2021 3:14 PM CDT 650 mg Given 06/03/2021 10:17 AM CDT 650 mg Given 06/02/2021 9:44 PM CDT 650 mg Given 06/02/2021 3:01 PM CDT 650 mg Given 06/02/2021 8:55 AM CDT 650 mg Given 06/01/2021 8:15 PM CDT 650 mg Given 06/01/2021 3:43 PM CDT albuterol 0.083% (PROVENTIL) nebulizer solution 2.5 mg 2.5 mg, Inhalation, RT EVERY 4 HOURS PRN, Starting on Mon06/01/21 at 1315, Until Mon06/07/21 at 1356, Signs and Symptoms of Acute Airway Obstruction, When administered by RT, will be per RT policy. 06/07/2021 8:18 AM CDT 300 mg allopurinoL (ZYLOPRIM) tablet 300 mg Given 300 mg, Oral, DAILY, First dose (after last modification) on Mon06/02/21 at 0900, Until Discontinued 300 mg Given 06/06/2021 9:25 AM CDT 300 mg Given 06/05/2021 9:24 AM CDT 300 mg Given 06/04/2021 8:18 AM CDT 300 mg Given 06/03/2021 10:15 AM CDT 300 mg Given 06/02/2021 8:55 AM CDT 06/06/2021 11:41 AM CDT 30 mL aluminum/magnesium hydroxide (MAALOX) Given oral suspension 30 mL 30 mL, Oral, EVERY 4 HOURS PRN, Starting on Mon06/01/21 at 1315, Until Mon06/07/21 at 1356, Indigestion/Heartburn, Rehab Admission 06/07/2021 8:18 AM CDT 81 mg aspirin EC tablet 81 mg Given 81 mg, Oral, DAILY, First dose (after last modification) on Mon06/02/21 at 0900, Until Discontinued 81 mg Given 06/06/2021 9:25 AM CDT 81 mg Given 06/05/2021 9:24 AM CDT 81 mg Given 06/04/2021 8:19 AM CDT 81 mg Given 06/03/2021 10:18 AM CDT 81 mg Given 06/02/2021 8:55 AM CDT 06/07/2021 8:18 AM CDT 3.125 mg carvediloL (COREG) tablet 3.125 mg Given 3.125 mg, Oral, TWICE DAILY, First dose (after last modification) on Mon 1 at 2100, Until Discontinued, Hold for heart rate < 60 bpm or systolic BP < 90 3.125 mg Given 06/06/2021 8:33 PM CDT 3.125 mg Given 06/06/2021 9:26 AM CDT 3.125 mg Given 06/05/2021 8:35 PM CDT 3.125 mg Given 06/05/2021 9:26 AM CDT 3.125 mg Given 06/04/2021 8:22 PM CDT 3.125 mg Given 06/04/2021 8:18 AM CDT 3.125 mg Given 06/03/2021 8:56 PM CDT 3.125 mg Given 06/03/2021 10:15 AM CDT 3.125 mg Given 06/02/2021 8:55 AM CDT 3.125 mg Given 06/01/2021 8:16 PM CDT 06/07/2021 8:19 AM CDT 5,000 Units cholecalciferol (VITAMIN D-3) tablet Given 5,000 Units 5,000 Units, Oral, DAILY, First dose (after last modification) on Mon 1 at 0900, Until Discontinued 5,000 Units Given 06/06/2021 9:23 AM CDT 5,000 Units Given 06/05/2021 9:24 AM CDT 5,000 Units Given 06/04/2021 8:17 AM CDT 5,000 Units Given 06/03/2021 10:14 AM CDT 5,000 Units Given 06/02/2021 8:56 AM CDT colchicine (COLCRYS) tablet 0.6 mg 0.6 mg, Oral, DAILY PRN, Starting on Mon06/01/21 at 1315, Until Mon06/07/21 at 1356, Pain PO 06/04/2021 8:18 AM CDT 100 mg docusate (COLACE) capsule 100 mg Given 100 mg, Oral, TWICE DAILY, First dose o n Mon06/01/21 at 1330, Until Discontinued , Hold for loose stools, Rehab Admission 100 mg Given 06/03/2021 10:17 AM CDT 06/06/2021 8:35 PM CDT 40 mg Abdomen: LLQ enoxaparin (LOVENOX) syringe 40 mg Given 40 mg, Subcutaneous, DAILY, First dose (after last modification) on Mon 1 at 2100, Until Discontinued, For patients undergoing surgery: Consult physician in advance -- enoxaparin is a n anticoagulant and may need to be held for 12hr prior to surgery or invasive procedures. NOTE: This is a HIGH ALERT Medication. 40 mg Abdomen:RLQ Given 06/05/2021 8:38 PM CDT 40 mg Abdomen:RLQ Given 06/04/2021 8:25 PM CDT 40 mg Abdomen:RLQ Given 06/03/2021 9:05 PM CDT 40 mg Abdominal Tissue Given 06/02/2021 9:44 PM CDT 40 mg Abdomen:RLQ Given 06/01/2021 8:16 PM CDT 06/07/2021 8:18 AM CDT 10 mg ezetimibe (ZETIA) tablet 10 mg Given 10 mg, Oral, DAILY, First dose (after last modification) on Mon06/02/21 at 0900, Until Discontinued 10 mg Given 06/06/2021 9:25 AM CDT 10 mg Given 06/05/2021 9:25 AM CDT 10 mg Given 06/04/2021 8:19 AM CDT 10 mg Given 06/03/2021 10:16 AM CDT 10 mg Given 06/02/2021 8:56 AM CDT 06/06/2021 8:33 PM CDT 100 mg gabapentin (NEURONTIN) capsule 100 mg Given 100 mg, Oral, AT BEDTIME DAILY, First dose (after last modification) on Mon06/01/21 at 2100, Until Discontinued 100 mg Given 06/05/2021 8:34 PM CDT 100 mg Given 06/04/2021 8:22 PM CDT 100 mg Given 06/03/2021 8:57 PM CDT 100 mg Given 06/02/2021 9:44 PM CDT 100 mg Given 06/01/2021 8:15 PM CDT 06/07/2021 8:18 AM CDT 200 mg gabapentin (NEURONTIN) capsule 200 mg Given 200 mg, Oral, DAILY, First dose (after last modification) on Mon06/02/21 at 0900, Until Discontinued 200 mg Given 06/06/2021 9:24 AM CDT 200 mg Given 06/05/2021 9:25 AM CDT 200 mg Given 06/04/2021 8:18 AM CDT 200 mg Given 06/03/2021 10:16 AM CDT 200 mg Given 06/02/2021 8:56 AM CDT 06/07/2021 6:23 AM CDT 25 mg hydrOXYzine HCL (ATARAX) tablet 25 mg Given 25 mg, Oral, THREE TIMES DAILY PRN, Starting on Mon06/01/21 at 1315, Until Mon06/07/21 at 1356, Anxiety PO, Itchin g PO 25 mg Given 06/05/2021 11:55 PM CDT 25 mg Given 06/05/2021 9:36 AM CDT 25 mg Given 06/04/2021 6:33 AM CDT 25 mg Given 06/03/2021 11:38 AM CDT 06/03/2021 12:05 PM CDT 1 Units Arm, Rig ht insulin aspart (U-100) (NOVOLOG FLEXPEN Given U-100 INSULIN) injection PEN 0-6 Units 0-6 Units, Subcutaneous, BEFORE MEALS AND 2200, First dose on Mon06/02/21 at 1100, Until Discontinued, -POC glucose 181-220mg/dL at , administer 1 unit insulin, at 22, 03* administer 0 units. -POC glucose 221-260mg/dL at , administer 2 units insulin, at 22, 03* administer 1 unit. -POC glucose 261-300mg/dL at administer 3 units insulin, at 22, 03* administer 2 units. -POC glucose 301-350mg/dL at administer 4 units insulin, at 22, 03* administer 3 units. -POC glucos e 351-400mg/dL at administer 5 units insulin, at 22, 03* administer 4 units. -POC glucose >400mg/dL at administer 6 units insulin, at 22, 03* administer 5 units. *only if ordered 5x's daily For POCT glucose >350mg/dL give correction bolus and recheck POCT glucose in 2 hours. If POC T glucose at 2 hours >300mg/dL call physician for further orders. For patients who are not eating meals, continue to administer the appropriate correction factor. NOTE: This is a HIGH ALERT Medication., Dispense pens manually with initial order and then upon request. DO NOT uncheck "Do not dispense" 06/04/2021 8:17 AM CDT 3 Units Arm, Lef t insulin aspart (U-100) (NOVOLOG FLEXPEN Given U-100 INSULIN) injection PEN 3 Units 3 Units, Subcutaneous, THREE TIMES MIRNA Y WITH MEALS, First dose (after last modification) on Mon06/03/21 at 1800, Until Discontinued, Hold if NPO for procedure, unable to eat, or if FSBS < 70 mg/dL Give at start of meal. NOTE: This is a HIGH ALERT Medication., Dispense pens manually with initial order and then upon request. DO NOT uncheck "Do not dispense" 3 Units Arm, Right Given 06/03/2021 5:26 PM CDT 06/03/2021 12:05 PM CDT 6 Units Arm, Rig ht insulin aspart (U-100) (NOVOLOG FLEXPEN Given U-100 INSULIN) injection PEN 6 Units 6 Units, Subcutaneous, THREE TIMES MIRNA Y WITH MEALS, First dose (after last modification) on Mon06/02/21 at 1200, Until Discontinued, Hold if NPO for procedure, unable to eat, or if FSBS < 70 mg/dL Give at start of meal. NOTE: This is a HIGH ALERT Medication., Dispense pens manually with initial order and then upon request. DO NOT uncheck "Do not dispense" 6 Units Arm, Right Given 06/03/2021 10:17 AM CDT 6 Units Arm, Right Given 06/02/2021 5:50 PM CDT 6 Units Arm, Left Given 06/02/2021 12:12 PM CDT 06/02/2021 8:54 AM CDT 8 Units Abdomina l Tissue insulin aspart (U-100) (NOVOLOG FLEXPEN Given U-100 INSULIN) injection PEN 8 Units 8 Units, Subcutaneous, THREE TIMES MIRNA Y WITH MEALS, First dose (after last modification) on Mon06/01/21 at 1800, Until Discontinued, Hold if NPO for procedure, unable to eat, or if FSBS < 70 mg/dL Give at start of meal. NOTE: This is a HIGH ALERT Medication., Dispense pens manually with initial order and then upon request. DO NOT uncheck "Do not dispense" 8 Units Arm, Right Given 06/01/2021 5:14 PM CDT 06/06/2021 9:57 PM CDT 10 Units Arm, Rig ht insulin glargine (LANTUS SOLOSTAR U-100 Given INSULIN) injection PEN 10 Units 10 Units, Subcutaneous, AT BEDTIME DAILY, First dose (after last modification) on Mon06/05/21 at 2200, Until Discontinued, Continue if NPO. DO NOT mix with other insulins -- Do not mix with other insulins -- NOTE: This i s a HIGH ALERT Medication., Dispense pens manually with initial order and then upon request. DO NOT uncheck "Do not dispense" 10 Units Arm, Right Given 06/05/2021 10:15 PM CDT 06/04/2021 10:38 PM CDT 14 Units Abdomen: RUQ insulin glargine (LANTUS SOLOSTAR U-100 Given INSULIN) injection PEN 14 Units 14 Units, Subcutaneous, AT BEDTIME DAILY, First dose (after last modification) on Mon06/04/21 at 2200, Until Discontinued, Continue if NPO. DO NOT mix with other insulins -- Do not mix with other insulins -- NOTE: This i s a HIGH ALERT Medication., Dispense pens manually with initial order and then upon request. DO NOT uncheck "Do not dispense" 06/03/2021 10:30 PM CDT 16 Units Arm, Rig ht insulin glargine (LANTUS SOLOSTAR U-100 Given INSULIN) injection PEN 16 Units 16 Units, Subcutaneous, AT BEDTIME DAILY, First dose (after last modification) on Mon06/02/21 at 2200, Until Discontinued, Continue if NPO. DO NOT mix with other insulins -- Do not mix with other insulins -- NOTE: This i s a HIGH ALERT Medication., Dispense pens manually with initial order and then upon request. DO NOT uncheck "Do not dispense" 16 Units Arm, Right Given 06/02/2021 9:51 PM CDT 06/01/2021 9:39 PM CDT 18 Units Arm, Rig ht insulin glargine (LANTUS SOLOSTAR U-100 Given INSULIN) injection PEN 18 Units 18 Units, Subcutaneous, AT BEDTIME DAILY, First dose (after last modification) on Mon06/01/21 at 2200, Until Discontinued, Continue if NPO. DO NOT mix with other insulins -- Do not mix with other insulins -- NOTE: This i s a HIGH ALERT Medication., Dispense pens manually with initial order and then upon request. DO NOT uncheck "Do not dispense" 06/06/2021 3:12 PM CDT 750 mg levoFLOXacin (LEVAQUIN) tablet 750 mg Given 750 mg, Oral, EVERY 24 HOURS, 5 doses, First dose on Mon06/04/21 at 1445, Last dose on Mon06/08/21 at 1445, NURSING: Please educate patient and document: Give 1 hour before or 2 hours after meals. If patient is receiving tube feedings, hold tube feedings 1 hour before and 2 hours after dose. Do not give within 2 hours of antacids, magnesium, calcium, iron, zinc, or vitamins containing these minerals. 750 mg Given 06/05/2021 3:28 PM CDT 750 mg Given 06/04/2021 5:36 PM CDT 06/07/2021 6:23 AM CDT 88 mcg levothyroxine (SYNTHROID) tablet 88 mcg Given 88 mcg, Oral, DAILY, First dose (after last modification) on Mon06/02/21 at 0630, Until Discontinued, Give 1 hour before a meal. If patient is receiving tube feedings, hold tube feed 1hr befor e and 1hr after dose. 88 mcg Given 06/06/2021 6:41 AM CDT 88 mcg Given 06/05/2021 6:24 AM CDT 88 mcg Given 06/04/2021 6:33 AM CDT 88 mcg Given 06/03/2021 6:33 AM CDT 88 mcg Given 06/02/2021 6:08 AM CDT lidocaine (LIDODERM) 5 % topical patch 1 patch 1 patch, Topical, Administer over 12 Hours, DAILY, First dose (after last modification) on Mon06/02/21 at 0900, Until Discontinued, NURSING PLEASE NOTE : Apply patch ONCE DAILY to area of pain and REMOVE after designated duration. Apply only to intact skin. Patch may b e cut to fit affected area. 06/06/2021 8:33 PM CDT 3 mg melatonin (MELATIN) tablet 3 mg Given 3 mg, Oral, AT BEDTIME DAILY, First dos e (after last modification) on Mon 1 at 2100, Until Discontinued 3 mg Given 06/05/2021 8:35 PM CDT 3 mg Given 06/04/2021 8:22 PM CDT 3 mg Given 06/03/2021 8:58 PM CDT 3 mg Given 06/02/2021 9:44 PM CDT 3 mg Given 06/01/2021 8:15 PM CDT 06/07/2021 8:18 AM CDT 1,000 mg metFORMIN (GLUCOPHAGE) tablet 1,000 mg Given 1,000 mg, Oral, TWICE DAILY WITH MEALS, First dose (after last modification) on Mon06/03/21 at 1700, Until Discontinued 1,000 mg Given 06/06/2021 5:30 PM CDT 1,000 mg Given 06/06/2021 9:24 AM CDT 1,000 mg Given 06/05/2021 5:11 PM CDT 1,000 mg Given 06/05/2021 9:25 AM CDT 1,000 mg Given 06/04/2021 5:36 PM CDT 1,000 mg Given 06/04/2021 8:18 AM CDT 1,000 mg Given 06/03/2021 5:26 PM CDT 06/03/2021 10:16 AM CDT 500 mg metFORMIN (GLUCOPHAGE) tablet 500 mg Given 500 mg, Oral, TWICE DAILY WITH MEALS, First dose on Mon06/01/21 at 1715, Unti l Discontinued 500 mg Given 06/02/2021 5:52 PM CDT 500 mg Given 06/02/2021 8:57 AM CDT 500 mg Given 06/01/2021 5:14 PM CDT 06/01/2021 8:15 PM CDT 500 mg methocarbamoL (ROBAXIN) tablet 500 mg Given 500 mg, Oral, THREE TIMES DAILY, First dose (after last modification) on Mon06/01/21 at 1500, Until Discontinued 500 mg Given 06/01/2021 3:43 PM CDT 06/07/2021 12:20 AM CDT 500 mg methocarbamoL (ROBAXIN) tablet 500 mg Given 500 mg, Oral, EVERY 8 HOURS PRN, Starting on Mon06/02/21 at 0815, Until Mon06/07/21 at 1356, Spasms 500 mg Given 06/05/2021 10:18 PM CDT 500 mg Given 06/04/2021 10:45 PM CDT 500 mg Given 06/04/2021 10:52 AM CDT 500 mg Given 06/02/2021 8:57 AM CDT 06/06/2021 11:41 AM CDT 4 mg ondansetron (ZOFRAN ODT) rapid dissolve Given tablet 4 mg 4 mg, Oral, EVERY 6 HOURS PRN, Startin g on Mon06/01/21 at 1315, Until Mon06/07/21 at 1356, Nausea/Vomiting PO, Place on tongue and allow to dissolve. 06/03/2021 9:02 PM CDT 5 mg oxyCODONE (ROXICODONE) tablet 5 mg Given 5 mg, Oral, EVERY 4 HOURS WHILE AWAKE PRN, Starting on Mon06/01/21 at 1113, Until Mon06/07/21 at 1356, Pain PO, Kameron n >7/10, if less use tylenol 5 mg Given 06/03/2021 6:44 AM CDT 5 mg Given 06/02/2021 1:42 PM CDT 06/06/2021 8:41 PM CDT [address] (PROTONIX) tablet 40 mg Given 40 mg, Oral, DAILY, First dose (after last modification) on Mon06/01/21 at 2100, Until Discontinued, Do not crush or chew tablet. 40 mg Given 06/05/2021 8:35 PM CDT 40 mg Given 06/04/2021 8:22 PM CDT 40 mg Given 06/03/2021 8:56 PM CDT 40 mg Given 06/02/2021 9:44 PM CDT 40 mg Given 06/01/2021 8:15 PM CDT 06/07/2021 8:18 AM CDT 40 mg rosuvastatin (CRESTOR) tablet 40 mg Given 40 mg, Oral, DAILY, First dose (after last modification) on Mon06/02/21 at 0900, Until Discontinued 40 mg Given 06/06/2021 9:24 AM CDT 40 mg Given 06/05/2021 9:24 AM CDT 40 mg Given 06/04/2021 8:19 AM CDT 40 mg Given 06/03/2021 10:15 AM CDT 40 mg Given 06/02/2021 8:57 AM CDT 06/07/2021 8:18 AM CDT 100 mg sertraline (ZOLOFT) tablet 100 mg Given 100 mg, Oral, DAILY, First dose (after last modification) on Mon06/02/21 at 0900, Until Discontinued 100 mg Given 06/06/2021 9:24 AM CDT 100 mg Given 06/05/2021 9:24 AM CDT 100 mg Given 06/04/2021 8:17 AM CDT 100 mg Given 06/03/2021 10:16 AM CDT 100 mg Given 06/02/2021 8:57 AM CDT 06/07/2021 8:19 AM CDT 100 mg SITagliptin (JANUVIA) tablet 100 mg Given 100 mg, Oral, DAILY, First dose on Mon06/03/21 at 1745, Until Discontinued 100 mg Given 06/06/2021 9:25 AM CDT 100 mg Given 06/05/2021 9:25 AM CDT 100 mg Given 06/04/2021 8:18 AM CDT 100 mg Given 06/03/2021 5:26 PM CDT 06/04/2021 5:37 PM CDT 3 mL sodium chloride PF 0.9% flush 3 mL Given 3 mL, Flush, FLUSH THREE TIMES DAILY, First dose on Mon06/03/21 at 1600, Unti l Discontinued, Flush peripheral catheter with 3-5 mL every 8 hours using the push-pause (turbulent) method. Flush al l lumens that do not have a continuous infusion. 3 mL Given 06/04/2021 8:17 AM CDT 3 mL Given 06/03/2021 3:14 PM CDT 06/06/2021 9:58 PM CDT 50 mg traZODone (DESYREL) tablet 50 mg Given 50 mg, Oral, AT BEDTIME PRN, Starting o n 06/01/21 at 1315, Until 06/07/21 at 1356, Insomnia documented in this encounter Discontinued Medications Start Date End Date Medication Sig Discontinue Reason 06/01/2021 06/04/2021 acetaminophen (TYLENOL) Take two 325 mg tablet tablets by mouth every 6 hours while awake. 06/01/2021 06/04/2021 carvediloL (COREG) 3.125 Take one mg tablet tablet by mouth twice daily. Take with food. 06/02/2021 06/04/2021 gabapentin (NEURONTIN) Take two 100 mg capsule capsules by mouth daily. 06/02/2021 06/04/2021 levothyroxine (SYNTHROID) Take one 88 mcg tablet tablet by mouth daily. 06/01/2021 06/04/[address] Take one (PROTONIX) 40 mg tablet tablet by mouth daily. 06/01/2021 06/04/2021 bisacodyL (DULCOLAX) 10 Insert or mg rectal suppository Apply one suppository to rectal area as directed once for 1 dose. 06/01/2021 06/04/2021 insulin aspart (U-100) Inject zero (NOVOLOG FLEXPEN U-100 Units to INSULIN) 100 unit/mL (3 twenty four mL) injection PEN Units under the skin before meals and 2200. 06/01/2021 06/04/2021 hydrOXYzine HCL (ATARAX) Take one 25 mg tablet tablet by mouth three times daily as needed. 06/01/2021 06/04/2021 insulin aspart (U-100) Inject eight (NOVOLOG FLEXPEN U-100 Units under INSULIN) 100 unit/mL (3 the skin mL) injection PEN three times daily with meals. 06/01/2021 06/04/2021 insulin glargine (LANTUS Inject SOLOSTAR U-100 INSULIN) twenty Units 100 unit/mL (3 mL) under the injection PEN skin at bedtime daily. 06/02/2021 06/04/2021 lidocaine (LIDODERM) 5 % Apply one topical patch patch topically to affected area daily. Apply patch for 12 hours, then remove for 12 hours before repeating. 06/02/2021 06/04/2021 milk of magnesia (CONC) Take 10 mL 2,400 mg/10 mL oral by mouth suspension daily. 06/01/2021 06/04/2021 methocarbamoL (ROBAXIN) Take one 500 mg tablet tablet by mouth three times daily. 06/01/2021 06/04/2021 oxyCODONE (ROXICODONE) 5 Take one mg tablet tablet to two tablets by mouth every 4 hours as needed 06/01/2021 06/04/2021 senna/docusate Take two (SENOKOT-S) 8.6/50 mg tablets by tablet mouth twice daily. 06/01/2021 06/04/2021 melatonin (MELATIN) 3 mg Take one Reorder tablet tablet by mouth at bedtime daily. 06/01/2021 06/04/2021 polyethylene glycol 3350 Take one Reorder (MIRALAX) 17 g packet packet by mouth twice daily. 06/01/2021 06/04/2021 aspirin EC 81 mg tablet Take one Reorder tablet by mouth twice daily for 35 days. Take with food. 06/04/2021 06/04/2021 insulin glargine (LANTUS Inject SOLOSTAR U-100 INSULIN) fourteen 100 unit/mL (3 mL) Units under injection PEN the skin at bedtime daily. 05/17/2021 06/07/2021 spironolactone TAKE 1 (ALDACTONE) 25 mg tablet TABLET EVERY DAY WITH FOOD 06/04/2021 06/07/2021 carvediloL (COREG) 3.125 Take one mg tablet tablet by mouth twice daily. Take with food. 06/04/2021 06/07/2021 gabapentin (NEURONTIN) Take two 100 mg capsule capsules by mouth daily with breakfast AND one capsule at bedtime daily. documented as of this encounter Active and Recently Administered Medications Times are shown in CDT. 06/06/2021 06/07/2021 Medication Order 06/05/2021 0924 (Given - Provider: Rachel Ratliff)1512 (Given - Provider: Ana Maria Montanez RN)2033 (Given - Provider: Devan Ojeda RN) 0818 (Given - Provider: Rachel Delvalle) acetaminophen (TYLENOL) tablet 650 mg 923 (Given - 650 mg, Oral, EVERY 6 HOURS WHILE Provider: Ana Maria DE LA O, First dose (after last MATT Montanez)1528 modification) on Mon06/01/21 at 1500, (Given - Provi tyrell: Until Discontinued, TOTAL ACETAMINOPHEN Ana Maria mejias, DOSE NOT TO EXCEED 4GM DAILY RN)2033 (Given - Provider: Neftali Ornelas RN) 0925 (Given - Provider: Rachel Ratliff) 0818 (Given - Provider: Rachel Delvalle) allopurinoL (ZYLOPRIM) tablet 300 mg 24 (Given - 300 mg, Oral, DAILY, First dose (after Provider: Eloy guajardo modification) on Mon06/02/21 at MATT Montanez) 0900, Until Discontinued 924 (Given - Provider: Rachel Ratliff) 08 (Given - Provider: Rachel Delvalle) aspirin EC tablet 81 mg 0924 (Given - 81 mg, Oral, DAILY, First dose (after Provider: Cass diaz last modification) on Mon06/02/21 at MATT Montanez) 0900, Until Discontinued 925 (Given - Provider: Rachel Ratliff)2032 (Given - Provider: Devan Ojeda RN) 08 (Given - Provider: Rachel Delvalle) carvediloL (COREG) tablet 3.125 mg 925 (Given - 3.125 mg, Oral, TWICE DAILY, First dose Provider: Chang landry (after last modification) on Mon06/01/21 MATT Montanez )2034 at 2100, Until Discontinued, Hold for (Given - Provi tyrell: heart rate < 60 bpm or systolic BP < 90 Neftali Ornelas RN) 922 (Given - Provider: Rachel Ratliff) 818 (Given - Provider: Rachel Delvalle) cholecalciferol (VITAMIN D-3) tablet 923 (Given - 5,000 Units Provider: Ana Maria 5,000 Units, Oral, DAILY, First dose MATT Montanez) (after last modification) on Mon 1 at 0900, Until Discontinued 924 (Med Not Given - Provider: Ana Maria thompson RN - Reason: Patient Refused)2033 (Med Not Given - Provider: Devan Ojeda RN - Reason: Patient Refused) 817 (Med Not Given - Provider: Brenda shi RN - Reason: Patient Refused) docusate (COLACE) capsule 100 mg 930 (Med Not Given 100 mg, Oral, TWICE DAILY, First dose on - Provider: Ana Maria Mon06/01/21 at 1330, Until Discontinued, MATT Montanez - Hold for loose stools, Rehab Admission Reason: Patie nt Refused)2035 (Med Not Given - Provider: Neftali Ornelas RN - Reason: Patient Refused) 2034 (Given - Provider: Devan barnes RN) enoxaparin (LOVENOX) syringe 40 mg 2037 (Given - 40 mg, Subcutaneous, DAILY, First dose Provider: David kellie (after last modification) on Mon06/01/21 Jerome stallworth RN) at 2100, Until Discontinued, For patients undergoing surgery: Consult physician in advance -- enoxaparin is a n anticoagulant and may need to be held for 12hr prior to surgery or invasive procedures. NOTE: This is a HIGH ALERT Medication. 0925 (Given - Provider: Rachel Ratliff) 0818 (Given - Provider: Rachel Delvalle) ezetimibe (ZETIA) tablet 10 mg 25 (Given - 10 mg, Oral, DAILY, First dose (after Provider: Cass diaz last modification) on Mon06/02/21 at MATT Montanez) 0900, Until Discontinued 2032 (Given - Provider: Devan barnes RN) gabapentin (NEURONTIN) capsule 100 mg 2033 (Given - 100 mg, Oral, AT BEDTIME DAILY, First Provider: Oliv er dose (after last modification) on Mon Jerome Ornelas RN) 06/01/21 at 2100, Until Discontinued 923 (Given - Provider: Rachel Ratliff) 08 (Given - Provider: Rachel Delvalle) gabapentin (NEURONTIN) capsule 200 mg 924 (Given - 200 mg, Oral, DAILY, First dose (after Provider: Eloy cannon last modification) on Mon06/02/21 at MATT Montanez) 0900, Until Discontinued 717 (Med Not Given - Provider: Neftali Ornelas RN - Reason: Order parameters not met)1142 (Med Not Given - Provider: Ana Maria Montanez RN - Reason: Order parameters not met)1709 (Med Not Given - Provider: Ana Maria Montanez RN - Reason: Order parameters not met)2159 (Med Not Given - Provider: Devan Gagnon RN - Reason: Order parameters not met) 0819 (Med Not Given - Provider: Brenda shi RN - Reason: Contraindicated - Comment: [id number])1100 (Due) insulin aspart (U-100) (NOVOLOG FLEXPEN 0724 (Med No t Given U-100 INSULIN) injection PEN 0-6 Units - Provider: O liver 0-6 Units, Subcutaneous, BEFORE MEALS Jerome Ornelas RN - AND 2200, First dose on Mon06/02/21 at Reason: Order 1100, Until Discontinued, -POC glucose parameters no t 181-220mg/dL at , , administer 1 met)1144 (Me d Not unit insulin, at , 03* administer 0 Given - Provid er: units. -POC glucose 221-260mg/dL at , Ana Maria mejias RN - administer 2 units insulin, at Reason: Order * administer 1 unit. -POC glucose parameters n ot 261-300mg/dL at , , administer 3 met)1712 (Me d Not units insulin, at , * administer 2 Given - Provi tyrell: units. -POC glucose 301-350mg/dL at , Ana Maria mejias RN - administer 4 units insulin, at Reason: Order * administer 3 units. -POC glucose parameters not 351-400mg/dL at , , administer 5 met)2216 (Me d Not units insulin, at , * administer 4 Given - Provi tyrell: units. -POC glucose >400mg/dL at , , Man Miller administer 6 units insulin, at 22, RN - Reason: O rder 03* administer 5 units. *only if parameters not met ) ordered 5x's daily For POCT glucose >350mg/dL give correction bolus and recheck POCT glucose in 2 hours. If POC T glucose at 2 hours >300mg/dL call physician for further orders. For patients who are not eating meals, continue to administer the appropriate correction factor. NOTE: This is a HIGH ALERT Medication., Dispense pens manually with initial order and then upon request. DO NOT uncheck "Do not dispense" 2156 (Given - Provider: Devan barnes, MATT) insulin glargine (LANTUS SOLOSTAR U-100 2214 (Given - INSULIN) injection PEN 10 Units Provider: Neftali 10 Units, Subcutaneous, AT BEDTIME Jerome Ornelas RN) DAILY, First dose (after last modification) on 06/05/21 at 2200, Until Discontinued, Continue if NPO. DO NOT mix with other insulins -- Do not mix with other insulins -- NOTE: This i s a HIGH ALERT Medication., Dispense pens manually with initial order and then upon request. DO NOT uncheck "Do not dispense" 1512 (Given - Provider: Rachel Ratliff) levoFLOXacin (LEVAQUIN) tablet 750 mg 1528 (Given - 750 mg, Oral, EVERY 24 HOURS, 5 doses, Provider: Eloy cannon First dose on Mon06/04/21 at 1445, Last MATT Montanez) dose on Mon06/08/21 at 1445, NURSING: Please educate patient and document: Give 1 hour before or 2 hours after meals. If patient is receiving tube feedings, hold tube feedings 1 hour before and 2 hours after dose. Do not give within 2 hours of antacids, magnesium, calcium, iron, zinc, or vitamins containing these minerals. 0641 (Given - Provider: Neftali peace RN) 06 (Given - Provider: Devan barnes, MATT) levothyroxine (SYNTHROID) tablet 88 mcg 0624 (Given - 88 mcg, Oral, DAILY, First dose (after Provider: David guajardo modification) on Mon06/02/21 at Rachel Dumas) 0630, Until Discontinued, Give 1 hour before a meal. If patient is receiving tube feedings, hold tube feed 1hr befor e and 1hr after dose. 0926 (Med Not Given - Provider: Ana Maria thompson RN - Reason: Patient Refused) 0819 (Med Not Given - Provider: Brenda shi RN - Reason: Patient Refused) lidocaine (LIDODERM) 5 % topical patch 1 922 (Med N ot Given patch - Provider: Ana Maria 1 patch, Topical, Administer over 12 MATT Montanez - Hours, DAILY, First dose (after last Reason: Patient modification) on Mon06/02/21 at 0900, Refused) Until Discontinued, NURSING PLEASE NOTE : Apply patch ONCE DAILY to area of pain and REMOVE after designated duration. Apply only to intact skin. Patch may b e cut to fit affected area. 2032 (Given - Provider: Devan barnes, MATT) melatonin (MELATIN) tablet 3 mg 2034 (Given - 3 mg, Oral, AT BEDTIME DAILY, First dose Provider: Ronn liver (after last modification) on Mon06/01/21 Jerome stallworth RN) at 2100, Until Discontinued 923 (Given - Provider: Rachel Ratliff)173 (Given - Provider: Ana Maria Montanez RN) 08 (Given - Provider: Rachel Delvalle) metFORMIN (GLUCOPHAGE) tablet 1,000 mg 25 (Given - 1,000 mg, Oral, TWICE DAILY WITH MEALS, Provider: Chang landry First dose (after last modification) on MATT Montanez) 171006/03/21 at 1700, Until Discontinued (Given - Pro vider: Ana Maria Montanez RN) 2040 (Given - Provider: Devan barnes RN) pantoprazole DR (PROTONIX) tablet 40 mg 2034 (Given - 40 mg, Oral, DAILY, First dose (after Provider: Laina mukherjee last modification) on Mon06/01/21 at Rachel Dumas) 2100, Until Discontinued, Do not crush or chew tablet. 24 (Given - Provider: Rachel Ratliff) 08 (Given - Provider: Rachel Delvalle) rosuvastatin (CRESTOR) tablet 40 mg 923 (Given - 40 mg, Oral, DAILY, First dose (after Provider: Cass diaz last modification) on Mon06/02/21 at MATT Montanez) 0900, Until Discontinued 2032 (Med Not Given - Provider: Devan Starks RN - Reason: Patient Refused) senna (SENOKOT) tablet 2 tablet 2035 (Med Not Given 2 tablet, Oral, AT BEDTIME DAILY, First - Provider: Neftali dose on Mon06/01/21 at 2100, Until Jerome Ornelas RN - Discontinued, Hold for loose stools, Reason: Patient Rehab Admission Refused) 923 (Given - Provider: Rachel Ratliff) 08 (Given - Provider: Rachel Delvalle) sertraline (ZOLOFT) tablet 100 mg 24 (Given - 100 mg, Oral, DAILY, First dose (after Provider: Eloy cannon last modification) on Mon06/02/21 at MATT Montanez) 0900, Until Discontinued 924 (Given - Provider: Rachel Ratliff) 0819 (Given - Provider: Rachel Delvalle) SITagliptin (JANUVIA) tablet 100 mg 0925 (Given - 100 mg, Oral, DAILY, First dose on Fal[place]i Provider: Eloy cannon 06/03/21 at 1745, Until Discontinued MATT Montanez) 06/06/2021 06/07/2021 Medication Order 06/05/2021 albuterol 0.083% (PROVENTIL) nebulizer solution 2.5 mg 2.5 mg, Inhalation, RT EVERY 4 HOURS PRN, Starting on Mon06/01/21 at 1315, Until Mon06/07/21 at 1356, Signs and Symptoms of Acute Airway Obstruction, When administered by RT, will be per RT policy. 1141 (Given - Provider: Rachel Ratliff) aluminum/magnesium hydroxide (MAALOX) oral suspension 30 mL 30 mL, Oral, EVERY 4 HOURS PRN, Starting on Mon06/01/21 at 1315, Until Mon06/07/21 at 1356, Indigestion/Heartburn, Rehab Admission bisacodyL (DULCOLAX) rectal suppository 10 mg 10 mg, Rectal, DAILY PRN, Starting on Mon06/01/21 at 1315, Until Mon06/07/21 at 1356, Constipation OR, Do not order suppository for neutropenic and/or thrombocytopenic patients., Rehab Admission colchicine (COLCRYS) tablet 0.6 mg 0.6 mg, Oral, DAILY PRN, Starting on Mon06/01/21 at 1315, Until Mon06/07/21 at 1356, Pain PO 0623 (Given - Provider: Devan barnes RN) hydrOXYzine HCL (ATARAX) tablet 25 mg 0936 (Given - 25 mg, Oral, THREE TIMES DAILY PRN, Provider: Ana Maria Starting on Mon06/01/21 at 1315, Until MATT Montanez)2 355 Mon06/07/21 at 1356, Anxiety PO, Itching (Given - Pr ovider: PO Neftali Ornelas RN) 0020 (Given - Provider: Devan barnes RN) methocarbamoL (ROBAXIN) tablet 500 mg 2217 (Given - 500 mg, Oral, EVERY 8 HOURS PRN, Provider: Neftali Starting on Mon06/02/21 at 0815, Until Jerome Ornelas RN) Mon06/07/21 at 1356, Spasms milk of magnesia (CONC) oral suspension 10 mL 10 mL, Oral, EVERY 4 HOURS PRN, Starting on Mon06/01/21 at 1315, Until Mon06/07/21 at 1356, Constipation PO, 1 0 mL CONC = 30 mL MOM, Rehab Admission 1141 (Given - Provider: Rachel Ratliff) ondansetron (ZOFRAN ODT) rapid dissolve tablet 4 mg 4 mg, Oral, EVERY 6 HOURS PRN, Startin g on Mon06/01/21 at 1315, Until Mon06/07/21 at 1356, Nausea/Vomiting PO, Place on tongue and allow to dissolve. oxyCODONE (ROXICODONE) tablet 5 mg 5 mg, Oral, EVERY 4 HOURS WHILE AWAKE PRN, Starting on Mon06/01/21 at 1113, Until Mon06/07/21 at 1356, Pain PO, Kameron n >7/10, if less use tylenol simethicone (MYLICON) chew tablet 80 mg 80 mg, Oral, EVERY 6 HOURS PRN, Starting on Mon06/01/21 at 1315, Until Mon06/07/21 at 1356, Flatulence 2158 (Given - Provider: Devan barnes, MATT) traZODone (DESYREL) tablet 50 mg 50 mg, Oral, AT BEDTIME PRN, Starting o n Mon06/01/21 at 1315, Until Mon06/07/21 at 1356, Insomnia documented in this encounter Orders First Ordered Date Medications Ordered That Might Not Have Count Last Ordered Date Been Administered albuterol 0.083% (PROVENTIL) nebulizer 1 06/01/2021 solution 2.5 mg alteplase (CATHFLO ACTIVASE) injection 2 1 06/01/2021 mg bisacodyL (DULCOLAX) rectal suppository 1 06/01/2021 10 mg colchicine (COLCRYS) tablet 0.6 mg 1 enoxaparin (LOVENOX) syringe 30 mg 1 insulin aspart (U-100) (NOVOLOG FLEXPEN 1 06/01/2021 U-100 INSULIN) injection PEN 0-12 Units insulin aspart (U-100) (NOVOLOG FLEXPEN 1 06/01/2021 U-100 INSULIN) injection PEN 0-24 Units insulin glargine (LANTUS SOLOSTAR U-100 1 06/01/2021 INSULIN) injection PEN 20 Units lidocaine (LIDODERM) 5 % topical patch 1 2 06/01/2021 patch milk of magnesia (CONC) oral suspension 1 06/01/2021 10 mL senna (SENOKOT) tablet 2 tablet 1 2020 simethicone (MYLICON) chew tablet 80 mg 1 06/01/2021 First Ordered Date Diet Count Last Ordered Date DISCHARGE DIET DIABETIC 1 06/07/2021 First Ordered Date Nursing Count Last Ordered Date DISCHARGE ACTIVITY NORMAL 1 06/07/2021 DISCHARGE ACTIVITY WT BEARING 1 06/07/20 21 DISCHARGE CONTACT 1 06/07/2021 DISCHARGE EDUCATION 1 06/07/2021 DISCHARGE SIGNS/SYMPTOMS 1 06/07/2021 DISCHARGE WOUND CARE 1 06/07/2021 First Ordered Date Consult Count Last Ordered Date CONSULT DIABETES NURSE EDUCATOR 1 2020 CONSULT DIETITIAN 1 06/01/2021 CONSULT ENDOCRINOLOGY PHYSICIAN 1 2020 CONSULT NEUROREHABILITATION PSYCHOLOGY 1 06/01/2021 First Ordered Date OT Count Last Ordered Date OT CONSULT OCCUPATIONAL THERAPY 1 2020 First Ordered Date PT Count Last Ordered Date PT CONSULT PHYSICAL THERAPY 1 06/01/2021 First Ordered Date 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 Count Last Ordered Date 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 WORKER CONSULT COGNITIVE EVAL & TX 1 2020 First Ordered Date Admission Count Last Ordered Date ADMIT TO REHAB (NO BED REQUEST) 1 2020 First Ordered Date Discharge Count Last Ordered Date DISCHARGE PATIENT NOW 1 06/07/2021 First Ordered Date Vital Signs Count Last Ordered Date VITAL SIGNS 1 06/02/2021 First Ordered Date Activity Count Last Ordered Date ACTIVITY (ED & REHAB ONLY) 1 06/02/2021 First Ordered Date Order Set Communication Count Last Ordered D ate VTE DRUG PROPHYLAXIS CONTRAINDICATED- 1 06/01/2021 ADMIT First Ordered Date Appointment Request Count Last Ordered Date APPOINTMENT REQUEST: ORTHOPEDICS 1 06/07 [facility] REQUEST: [facility] 1 05/[address] & Maintain Count Last Ordered Date PLACE AND MAINTAIN SCD 1 06/01/2021 First Ordered Date DME/Home Health Count Last Ordered Date 06/03/2021 HOME HEALTH/DME 2 06/07/2021 documented in this encounter Additional Health Concerns Assessment Noted Time A fall risk assessment has been completed for the pat ient 06/07/2021 9:30 AM CDT PHQ-2 Depression Total Score: 0 02/02/2021 1:08 PM CDT documented as of this encounter
--- OUTSIDE RECORDS SUMMARY | 2021-07-24 19:35 | XMS REPORT | Encounter Summary ---
Author Author [facility] Organization [facility] Address Unknown Phone Unavailable Care Team Providers [facility] Worker Name Role Phone Theresa Kowalski RN Unavailable Unavailable Colleen Funes RN Unavailable Unavailable Demarco Byrd MD Unavailable Misty Garsia RN 2 Unavailable Tien Christianson MD Unavailable Unavailable Guillermina Davis NP PCP Steve Garcia MD Unavailable Cameron Bailey MD Unavailable Guillermina Davis NP 7 Reason for Visit * Auth/Cert Referred By Contact Referred To Contact Status Reason Specialty Diagnoses / Procedures Diagnoses Trauma Complex L-hip fx Encounter Details Care Team Description Date Type Department Geovanny Dupont MD [address] [place] [address] Trauma 05/23/2021 Hospital Patient Care Unit B H43: - Encounter [facility] [place], Main 06/01/2021 Hospital [address] [facility] Level [address] [place] [address] Social History Date Tobacco Use [...] Signs Reading Time Taken Comments Vital Sign 144/54 06/01/2021 8:34 AM CDT Blood Pressure 68 06/01/2021 8:34 AM CDT Pulse 36.7 C (98.1 F) 06/01/2021 8:34 AM CDT Temperature - - Respiratory Rate 95% 06/01/2021 8:34 AM CDT Oxygen Saturation - - Inhaled Oxygen Concentration 90.3 kg (199 lb) 05/23/2021 6:47 PM CDT Weight 154.9 cm (5' 1") 05/23/2021 6:47 PM CDT Height 37.6 05/23/2021 6:47 PM CDT Body Mass Index documented in this encounter Functional Status Date of Assessment Functional Status Response 06/01/2021 Does the patient have a hearing impairment: No 06/01/2021 Does the patient have a visual impairment: Yes 06/01/2021 Does the patient have impaired ambulation: Yes 06/01/2021 Does the patient have an activity of daily living Ye s (ADL) impairment: 06/01/2021 Does the patient have an instrumental activity of Ye s daily living (IADL) impairment: Date of Assessment Cognitive Status Response 06/01/2021 Does the patient have a cognitive impairment: No documented as of this encounter Discharge Summaries * January - 06/01/2021 10:22 AM CDT Physician Discharge Summary Name: Tanja Deal Date Of : 1950 Age: 71 years Admit date: 05/23/2021 Discharge date: 06/01/2021 1:00 PM Attending Physician: Dr. Patience Ford Service: Surgery-Trauma Physician Summary completed by: Don Austin PA-C Reason for hospitalization: Complex L-hip fx; Trauma Significant PMH: Medical History: Diagnosis Date Anxiety 03/17/2016 Arrhythmia Patient denies Arthritis Back pain Cardiac arrhythmia Chest pain Coronary artery disease Essential hypertension 03/16/2016 Fibromyalgia No current treatment required Gout Heart attack (HCC) 03/14/2016 History of non-ST elevation myocardial infarction (NSTEMI) 03/14/2016 Hyperlipidemia 03/16/2016 Hypothyroid 03/16/2016 Kidney insufficiency 07/09/19 BUN/Cr: 26/1.23 - Monitored by PCP Morbid obesity with BMI of 40.0-44.9, adult ([facility]) 03/17/2016 Neuropathy Patient denies Numbness and tingling in left hand Due to CVA Osteoarthritis Stroke ([facility]) 03/22/2016 RUE weakness Thyroid disease Type II diabetes mellitus ([facility]) 03/16/2016 Managed with metformin & glimepiride Allergies: Prednisone, Lisinopril, and Naproxen Admission Physical Exam notable for: Primary survey: Airway patent to voice, trachea midline Breath sounds equal bilaterally, equal chest rise Carotid, radial, femoral, DP palpable bilaterally, heart sounds clear GCS 15, 5/5 strength/sensation in bilateral upper and lower extremities Secondary survey: HEENT: Pupils 2 mm bilat, no skull/maxillofacial bony deformities or TTP, no sca lp lacs/abrasions, no otorrhea/rhinorrhea CHEST: no clavicular, sternal or thoracic TTP/bony deformities, bilateral axilla e clear ABD: s/nt/nd BACK: no C,T,L,S spine TTP or step-off deformities, bilateral flanks clear PELVIS: no obvious instability, perineum clear EXT: LEFT hip edema, with minimal bruising and significant tenderness to palpati on; no obvious abrasions or lacs to bilateral upper and lower extremities; full ROM of all 4 extremities, significant pain with inversion and eversion of LLE Admission Lab/Radiology studies notable for: FOOT 2 VIEW BILATERAL Final Result 1. No acute fracture or dislocation. 2. Mild degenerative arthritis of the first IP joint on the right and of the bi lateral talonavicular joints. 3. There is prominent notching along the lateral aspect of the right second met atarsal head which could represent an old erosion. Finalized by Jung Aranda M.D. on 05/26/2021 2:27 PM. Dictated by Eloise Patino on 05/26/2021 2:22 PM. ANKLE MIN 3 VIEWS RIGHT Final Result 1. No acute fracture or dislocation. 2. Mild degenerative arthritis of the first IP joint on the right and of the bi lateral talonavicular joints. 3. There is prominent notching along the lateral aspect of the right second met atarsal head which could represent an old erosion. Finalized by Jung Aranda M.D. on 05/26/2021 2:27 PM. Dictated by Eloise Patino on 05/26/2021 2:22 PM. FLUORO MOBILE IN OR Final Result CT ABD/PELV WO CONTRAST Final Result 1. No evidence of major abdominal or pelvic visceral injury or hemoperitoneum. 2. Periprosthetic proximal left femoral fracture. Finalized by Javier Tamez MD, PhD on 05/23/2021 10:47 PM. Dictated by Jacques Tamez MD, PhD on 05/23/2021 10:[address] LOWER EXTREM WO CONT LEFT Final Result 1. No evidence of major abdominal or pelvic visceral injury or hemoperitoneum. 2. Periprosthetic proximal left femoral fracture. Finalized by Javier Tamez MD, PhD on 05/23/2021 10:47 PM. Dictated by Jacques Tamez MD, PhD on 05/23/2021 10:29 PM. POC ANES US GUIDED NERVE BLOCK (Results Pending) Brief Hospital Course: The patient was admitted and the following issues were a ddressed during this hospitalization: (with pertinent details). Tanja Deal is a 71 y.o. female with a PMH of hypothyroidism, HTN, HLD, C AD, ischemic cardiology s/p CABG, T2DM, CKD, prior L hip fracture s/p arthroplas ty who presents as a trauma transfer after a fall. Pt states that she was steppi ng over a curb when she lost her balance and tried to catch herself on a nearby car. She slid down the car and landed on her right hip. . Pt found to have a lef t periprosthetic femur fx. Ortho was consulted and pt went to the OR on 05/25 fo r an ORIF. During her hospitalization she has struggled with acute blood loss an emia which as required multiple blood transfusions, as well as, hyperglycemia. S he is currently medically stable and progressing w/ therapies well awaiting plac ement. Physical therapy was initiated and patient was restarted on regular diet and any indicated home medications. They received oral pain medicine that was titrated to patient's needs. Labs were routinely followed and electrolytes were replaced as indicated. Prior to discharge patient was cleared by physical therapy, had ad equate pain control, and had return of bowel function. Appropriate follow-up was scheduled. Discussed results of hospital visit with patient, answered all questions, and re viewed the plan for discharge to [facility] and to follow up as an outpatient. The p atient was verbally instructed to return to the ED immediately for further evalu ation if there are any new or concerning symptoms, or worsening of current sympt oms. The patient acknowledged understanding of these instructions. 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 09/15/2020 Degenerative arthritis of left knee 08/28/2019 Elevated Lp(a) 07/09/2019 Ischemic cardiomyopathy 03/01/2018 S/P CABG (coronary artery bypass graft) 07/24/2017 CAD (coronary artery disease) 07/27/2016 ABLA (acute blood loss anemia) 03/26/2016 CVA (cerebral vascular accident) ([facility]) 03/26/2016 Class 2 severe obesity due to excess calories with serious comorbidity and b ashli mass index (BMI) of 37.0 to 37.9 in adult ([facility]) 03/17/2016 Anxiety 03/17/2016 CKD (chronic kidney disease) stage 3, GFR 30-59 ml/min ([facility]) 03/17/2016 Dyslipidemia associated with type 2 diabetes mellitus ([facility]) 03/17/2016 Type II diabetes mellitus ([facility]) 03/16/2016 Essential hypertension 03/16/2016 Hypothyroid 03/16/2016 Hyperlipidemia 03/16/2016 Condition at Discharge: Stable Discharge Diagnoses: Hospital Problems Active Problems * (Principal) Trauma Type II diabetes mellitus ([facility]) Essential hypertension Hypothyroid Hyperlipidemia Class 2 severe obesity due to excess calories with serious comorbidity and body mass index (BMI) of 37.0 to 37.9 in adult ([facility]) Anxiety CKD (chronic kidney disease) stage 3, GFR 30-59 ml/min ([facility]) Dyslipidemia associated with type 2 diabetes mellitus ([facility]) ABLA (acute blood loss anemia) CAD (coronary artery disease) S/P CABG (coronary artery bypass graft) Ischemic cardiomyopathy Degenerative arthritis of left knee Hip fracture (HCC) Thrombocytopenia (HCC) Principal Problem: Trauma Active Problems: Type II diabetes mellitus (HCC) Essential hypertension Hypothyroid Hyperlipidemia Class 2 severe obesity due to excess calories with serious comorbidity and bod y mass index (BMI) of 37.0 to 37.9 in adult (HCC) Anxiety CKD (chronic kidney disease) stage 3, GFR 30-59 ml/min (HCC) Dyslipidemia associated with type 2 diabetes mellitus (HCC) ABLA (acute blood loss anemia) CAD (coronary artery disease) S/P CABG (coronary artery bypass graft) Ischemic cardiomyopathy Degenerative arthritis of left knee Hip fracture (HCC) Thrombocytopenia (HCC) Surgical Procedures: Procedure(s) (LRB): OPEN TREATMENT WITH INTERNAL FIXATION OF PERIPROSTHETIC LEFT FEMUR FRACTURE (Lef t) Significant Diagnostic Studies and Procedures: noted in brief hospital course Consults: CONSULT INTERNAL MEDICINE PHYSICIAN CONSULT ORTHOPEDIC SURGERY PHYSICIAN CONSULT REHABILITATION MEDICINE PHYSICIAN Patient Disposition: [facility] Inpatient Rehabilitation Patient instructions/medications: Diabetic Diet You should eat between 1600 and 2000 calories per day. This is equal to 60g (g michelle) of carbohydrates per meal, and 30g of carbohydrates for a bedtime snack. If you have questions about your diet after you go home, you can call a dietitia n at [phone]. Report These Signs and Symptoms Please contact [...] or concerns regarding your hospital stay, call [phone]. Discharging attending physician: PATIENCE FORD [[id number]] Restrictions for Left Leg Toe touch: You may place the toes of your affected leg on the ground while walk ing only to assist with balance. Continue these restrictions until follow up appointment. Current Discharge Medication List START taking these medications Details acetaminophen (TYLENOL) 325 mg tablet Take two tablets by mouth every 6 hours wh ile awake. Refills: 0 PRESCRIPTION TYPE: No Print bisacodyL (DULCOLAX) 10 mg rectal suppository Insert or Apply one suppository to rectal area as directed once for 1 dose. Qty: 1 suppository, Refills: 0 PRESCRIPTION TYPE: No Print hydrOXYzine HCL (ATARAX) 25 mg tablet Take one tablet by mouth three times daily as needed. Qty: 90 tablet PRESCRIPTION TYPE: No Print !! insulin aspart (U-100) (NOVOLOG FLEXPEN U-100 INSULIN) 100 unit/mL (3 mL) inj ection PEN Inject zero Units to twenty four Units under the skin before meals an d 2200. Qty: 45 mL PRESCRIPTION TYPE: No Print !! insulin aspart (U-100) (NOVOLOG FLEXPEN U-100 INSULIN) 100 unit/mL (3 mL) inj ection PEN Inject eight Units under the skin three times daily with meals. Qty: 45 mL PRESCRIPTION TYPE: No Print insulin glargine (LANTUS SOLOSTAR U-100 INSULIN) 100 unit/mL (3 mL) injection PE N Inject twenty Units under the skin at bedtime daily. Qty: 45 mL PRESCRIPTION TYPE: No Print Comments: The pharmacist may select Lantus Solorstar or Basaglar Kwikpen based o n what is cheaper for the patient. lidocaine (LIDODERM) 5 % topical patch Apply one patch topically to affected are a daily. Apply patch for 12 hours, then remove for 12 hours before repeating. Qty: 90 patch PRESCRIPTION TYPE: No Print melatonin (MELATIN) 3 mg tablet Take one tablet by mouth at bedtime daily. Qty: 90 tablet PRESCRIPTION TYPE: No Print methocarbamoL (ROBAXIN) 500 mg tablet Take one tablet by mouth three times daily . PRESCRIPTION TYPE: No Print milk of magnesia (CONC) 2,400 mg/10 mL oral suspension Take 10 mL by mouth daily . Qty: 360 mL PRESCRIPTION TYPE: No Print oxyCODONE (ROXICODONE) 5 mg tablet Take one tablet to two tablets by mouth every 4 hours as needed Qty: 50 tablet, Refills: 0 PRESCRIPTION TYPE: No Print pantoprazole DR (PROTONIX) 40 mg tablet Take one tablet by mouth daily. Qty: 90 tablet PRESCRIPTION TYPE: No Print polyethylene glycol 3350 (MIRALAX) 17 g packet Take one packet by mouth twice da renetta. Qty: 12 each PRESCRIPTION TYPE: No Print senna/docusate (SENOKOT-S) 8.6/50 mg tablet Take two tablets by mouth twice mirna y. Qty: 90 tablet PRESCRIPTION TYPE: No Print !! - Potential duplicate medications found. Please discuss with provider. CONTINUE these medications which have been CHANGED or REFILLED Details aspirin EC 81 mg tablet Take one tablet by mouth daily. Take with food. Qty: 90 tablet PRESCRIPTION TYPE: No Print carvediloL (COREG) 3.125 mg tablet Take one tablet by mouth twice daily. Take food. Qty: 180 tablet, Refills: 0 PRESCRIPTION TYPE: No Print gabapentin (NEURONTIN) 100 mg capsule Take two capsules by mouth daily. Qty: 270 capsule PRESCRIPTION TYPE: No Print levothyroxine (SYNTHROID) 88 mcg tablet Take one tablet by mouth daily. Qty: 90 tablet PRESCRIPTION TYPE: No Print CONTINUE these medications which have NOT CHANGED Details albuterol 0.083% (PROVENTIL) 2.5 mg /3 mL (0.083 %) nebulizer solution Inhale 2. 5 mg solution by nebulizer as directed every 4 hours as needed for Wheezing or S hortness of Breath. PRESCRIPTION TYPE: Historical Med allopurinol (ZYLOPRIM) 300 mg tablet Take 300 mg by mouth daily. PRESCRIPTION TYPE: Historical Med cholecalciferol (VITAMIN D-3) 5000 unit tablet Take 5,000 Units by mouth daily. PRESCRIPTION TYPE: Historical Med colchicine 0.6 mg tablet Take 0.6 mg by mouth daily as needed. Gout PRESCRIPTION TYPE: Historical Med dapagliflozin-metformin (XIGDUO XR) 10-1,000 mg TBph Take 1 tablet by mouth mirna y. PRESCRIPTION TYPE: Historical Med ezetimibe (ZETIA) 10 mg tablet Take one tablet by mouth daily. Qty: 90 tablet, Refills: 3 PRESCRIPTION TYPE: Normal fish oil /omega-3 fatty acids (SEA-OMEGA) 340/1000 mg capsule Take 2,000 mg by m outh twice daily. PRESCRIPTION TYPE: Historical Med ipratropium/albuterol (COMBIVENT) 103/18 mcg/Actuation inhaler Inhale 2 puffs by mouth into the lungs daily as needed. PRESCRIPTION TYPE: Historical Med Magnesium Oxide 500 mg tab Take 500 mg by mouth twice daily. PRESCRIPTION TYPE: Historical Med Ajcdqqtfdlrac-Ku-Dybd-Minerals 18-0.4 mg tab Take 1 tablet by mouth daily. PRESCRIPTION TYPE: Historical Med oxymetazoline (AFRIN) 0.05 % nasal spray Apply 2 sprays to each nostril as direc jenifer twice daily as needed. PRESCRIPTION TYPE: Historical Med rosuvastatin (CRESTOR) 40 mg tablet TAKE 1 TABLET EVERY DAY Qty: 90 tablet, Refills: 3 PRESCRIPTION TYPE: Normal sertraline (ZOLOFT) 100 mg tablet Take 1 tablet by mouth daily. PRESCRIPTION TYPE: Historical Med spironolactone (ALDACTONE) 25 mg tablet TAKE 1 TABLET EVERY DAY WITH FOOD Qty: 90 tablet, Refills: 3 PRESCRIPTION TYPE: Normal vitamins, multiple tablet Take 1 tablet by mouth daily. PRESCRIPTION TYPE: Historical Med The following medications were removed from your list. This list includes medic ations discontinued this stay and those removed from your prior med list in our system acetaminophen SR (TYLENOL) 650 mg tablet ALPRAZolam (XANAX) 1 mg tablet linagliptin (TRADJENTA) 5 mg tab meloxicam (MOBIC) [address] (PRILOSEC) 40 mg capsule Future Appointments Date Time Provider Department Center 06/04/2021 1:30 PM Micheal Abdi MD [facility] IM Pending items needing follow up: Ortho clinic Signed: Don Austin PA-C 06/01/2021 cc: Primary Care Physician: Guillermina Davis Referring physicians: Additional provider(s): documented in this encounter Discharge Instructions * Appointments* Don Austin PA-C - 06/01/2021 10:13 AM CDT Ortho recs: -Recommend ppx Lovenox while inpatient, ASA 81mg PO bid x 4 weeks upon discharge . -Leave dressings in place until follow up appointment unless saturated then ok t o replace with 4x4 gauze and tegaderm/hypafix. If any new drainage seen or cris rns for infection, please contact Dr. Wu's office @ [phone]. -Toe touch weightbearing left lower extremity. -Do not get incisions wet. Keep dressings dry. Sponge bathe until follow up appo intment. -Follow up with Dr. Wu 2-3 weeks post operative by calling [phone] to darnell escobar. Should you have a question or concern regarding your orthopedic care or injuries please call our nurse's line at [phone]. Our clinic is located on the 2nd floor of the [facility], across from the [facility]. The clinic address is [address], [place] [address] documented in this encounter Medications at Time [...] every 8 hours as needed for Spasms. Edvgncxzgbvms-Mr-Peuj-Min Take 1 tablet 0 erals 18-0.4 mg [...] by mouth every 6 hours while awake. 06/09/2021 07/06/2021 aspirin EC 81 mg tablet Take one 90 tablet 0 tablet by mouth twice daily for 27 days. Take with food. Take twice daily through 07/06, then decrease back to one tablet daily starting on 07/0706/01/2021 06/04/2021 aspirin EC 81 mg tablet Take one 90 tablet 0 tablet by mouth twice daily for 35 days. Take with food. 06/01/2021 06/04/2021 bisacodyL (DULCOLAX) 10 Insert or 1 0 mg rectal suppository Apply one suppository suppository to rectal area as directed once for 1 dose. 06/04/2021 06/07/2021 carvediloL (COREG) 3.125 Take one 60 tablet 1 mg tablet tablet by mouth twice daily. Take with food. 06/01/2021 06/04/2021 carvediloL (COREG) 3.125 Take one 180 tablet 0 mg tablet tablet by mouth twice daily. Take with food. 05/26/2020 07/19/2021 ezetimibe (ZETIA) 10 mg Take one 90 tablet 3 tablet tablet by mouth daily. 06/04/2021 06/07/2021 gabapentin (NEURONTIN) Take two 90 capsule 1 100 mg capsule capsules by mouth daily with breakfast AND one capsule at bedtime daily. 06/02/2021 06/04/2021 gabapentin (NEURONTIN) Take two 270 capsule 0 100 mg capsule capsules by mouth daily. 06/01/2021 06/04/2021 hydrOXYzine HCL (ATARAX) Take one [...] injection PEN three times daily with meals. 06/04/2021 06/04/2021 insulin glargine (LANTUS Inject 15 mL 1 SOLOSTAR U-100 INSULIN) fourteen 100 unit/mL (3 mL) Units under injection PEN the skin at bedtime daily. 06/01/2021 06/04/2021 insulin glargine (LANTUS Inject twenty 45 mL 0 SOLOSTAR U-100 INSULIN) Units under 100 unit/mL (3 mL) the skin at injection PEN bedtime daily. 06/07/2021 06/08/2021 levoFLOXacin (LEVAQUIN) Take one 1 tablet 0 750 mg tabletIndications: tablet by genitourinary tract mouth every infections 24 hours for 1 day. Indications: an infection of the genitals or urinary tract 06/02/2021 06/04/2021 levothyroxine (SYNTHROID) Take one 90 tablet 0 88 mcg tablet tablet by mouth daily. 06/02/2021 06/04/2021 lidocaine (LIDODERM) 5 % Apply one 90 patch 0 topical patch patch topically to affected area daily. Apply patch for 12 hours, then remove for 12 hours before repeating. 06/01/2021 06/04/2021 melatonin (MELATIN) 3 mg Take one 90 tablet 0 tablet tablet by mouth at bedtime daily. 06/01/2021 06/04/2021 methocarbamoL (ROBAXIN) Take one 0 500 mg tablet tablet by mouth three times daily. 06/02/2021 06/04/2021 milk of magnesia (CONC) Take 10 mL by 360 mL 0 2,400 mg/10 mL oral mouth daily. suspension 06/01/2021 06/04/2021 oxyCODONE (ROXICODONE) 5 Take one [...] WITH FOOD documented as of this encounter Ordered Prescriptions Start Date End Date Prescription Sig Dispensed Refills 06/01/2021 06/04/2021 aspirin EC 81 mg tablet Take one 90 tablet 0 tablet by mouth twice daily for 35 days. Take with food. 06/01/2021 06/04/2021 senna/docusate Take two 90 tablet 0 (SENOKOT-S) 8.6/50 mg tablets by tablet mouth twice daily. 06/01/2021 06/04/2021 polyethylene glycol 3350 Take one 12 each 0 (MIRALAX) 17 g packet packet by mouth twice daily. 06/01/2021 06/04/2021 oxyCODONE (ROXICODONE) 5 Take one 50 tablet 0 mg tablet tablet to two tablets by mouth every 4 hours as needed 06/01/2021 06/04/2021 melatonin (MELATIN) 3 mg Take one 90 tablet 0 tablet tablet by mouth at bedtime daily. 06/01/2021 06/04/2021 methocarbamoL (ROBAXIN) Take one 0 500 mg tablet tablet by mouth three times daily. 06/02/2021 06/04/2021 milk of magnesia (CONC) Take 10 mL by 360 mL 0 2,400 mg/10 mL oral mouth daily. suspension 06/02/2021 06/04/2021 lidocaine (LIDODERM) 5 % Apply one 90 patch 0 topical patch patch topically to affected area daily. Apply patch for 12 hours, then remove for 12 hours before repeating. 06/01/2021 06/04/2021 insulin glargine (LANTUS Inject twenty 45 mL 0 SOLOSTAR U-100 INSULIN) Units under 100 unit/mL (3 mL) the skin at injection PEN bedtime daily. 06/01/2021 06/04/2021 insulin aspart (U-100) Inject eight 45 mL 0 (NOVOLOG FLEXPEN U-100 Units under INSULIN) 100 unit/mL (3 the skin mL) injection PEN three times daily with meals. 06/01/2021 06/04/2021 hydrOXYzine HCL (ATARAX) Take one 90 tablet 0 25 mg tablet tablet by mouth three times daily as needed. 06/01/2021 06/04/2021 insulin aspart (U-100) Inject zero 45 mL 0 (NOVOLOG FLEXPEN U-100 Units to INSULIN) 100 unit/mL (3 twenty four mL) injection PEN Units under the skin before meals and 2200. 06/01/2021 06/04/2021 bisacodyL (DULCOLAX) 10 Insert or 1 0 mg rectal suppository Apply one suppository suppository to rectal area as directed once for 1 dose. 06/01/2021 06/04/[address] Take one 90 tablet 0 (PROTONIX) 40 mg tablet tablet by mouth daily. 06/02/2021 06/04/2021 levothyroxine (SYNTHROID) Take one 90 tablet 0 88 mcg tablet tablet by mouth daily. 06/02/2021 06/04/2021 gabapentin (NEURONTIN) Take two 270 capsule 0 100 mg capsule capsules by mouth daily. 06/02/2021 06/01/2021 aspirin EC 81 mg tablet Take one 90 tablet 0 tablet by mouth daily. Take with food. 06/01/2021 06/04/2021 carvediloL (COREG) 3.125 Take one 180 tablet 0 mg tablet tablet by mouth twice daily. Take with food. 06/01/2021 06/04/2021 acetaminophen (TYLENOL) Take two 0 325 mg tablet tablets by mouth every 6 hours while awake. documented in this encounter Discharge Disposition Code Departure Means Destination Disposition Ambulance Rehab Facility ([facility]) documented in this encounter Progress Notes * Emerald Leger RN - 06/01/2021 12:59 PM CDT Tanja Wang "Janeen Deal discharged on 06/01/2021. . Discharge instructions reviewed with patient. Valuables returned: Personal Items / Valuables: Dentures, Cell Phone, Eyeglasses/Contacts Denture Type: Partial upper Where Are Valuables Stored?: upper parital and ring given to daughter in waiting room 2. Home medications: . Functional assessment at discharge complete: Yes . * Don Austin PA-C - 06/01/2021 8:45 AM CDT Trauma Progress Note Today's Date: 06/01/2021 Hospital Day: Hospital Day: 10 HPI: Tanja Dael is a 71 y.o. female with a PMH of hypothyroidism, HTN, HLD, C AD, ischemic cardiology s/p CABG, T2DM, CKD, prior L hip fracture s/p arthroplas ty who presents as a trauma transfer after a fall. Pt states that she was steppi ng over a curb when she lost her balance and tried to catch herself on a nearby car. She slid down the car and landed on her right hip. . Pt found to have a lef t periprosthetic femur fx. Ortho was consulted and pt went to the OR on 05/25 fo r an ORIF. During her hospitalization she has struggled with acute blood loss an emia which as required multiple blood transfusions, as well as, hyperglycemia. S he is currently medically stable and progressing w/ therapies well awaiting plac ement. 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 09/15/2020 Degenerative arthritis of left knee 08/28/2019 Elevated Lp(a) 07/09/2019 Ischemic cardiomyopathy 03/01/2018 S/P CABG (coronary artery bypass graft) 07/24/2017 CAD (coronary artery disease) 07/27/2016 ABLA (acute blood loss anemia) 03/26/2016 CVA (cerebral vascular accident) ([facility]) 03/26/2016 Class 2 severe obesity due to excess calories with serious comorbidity and b ashli mass index (BMI) of 37.0 to 37.9 in adult ([facility]) 03/17/2016 Anxiety 03/17/2016 CKD (chronic kidney disease) stage 3, GFR 30-59 ml/min ([facility]) 03/17/2016 Dyslipidemia associated with type 2 diabetes mellitus ([facility]) 03/17/2016 Type II diabetes mellitus ([facility]) 03/16/2016 Essential hypertension 03/16/2016 Hypothyroid 03/16/2016 Hyperlipidemia 03/16/2016 Neuro Acute pain due to trauma --Gabapentin 100mg qhs and 200mg daily -- Lidocaine patch -- Robaxin 500mg TID -- Tylenol 650mg q6hrs -- Ibuprofen 600mg TID w/ meals -- Oxycodone 5-10mg q4hrs PRN Sleep disturbance/Anxiety/Depression -- melatonin 3mg QHS -- Holding BRIDGE MANAGER Xanax- due to use of narcotic pain medications -- BRIDGE MANAGER Zoloft -- Atarax 25mg TID PRN CV HTN/HLD -- Continue BRIDGE MANAGER Rosuvastatin, ASA, Zetia, -- BRIDGE MANAGER Coreg- decreased to 3.125 -- Holding BRIDGE MANAGER Aldactone- due to hypotension -- HR: 60's -- Continue to monitor Pulm COPD -- Albuterol Nebs PRN -- Stable on RA. -- Pulmonary toilet, encourage IS GI/FEN Diabetic diet SLIV Zofran prn nausea Monitor and replace lytes prn GERD -- BRIDGE MANAGER Protonix Risk for Constipation -- Bowel regimen -- Last BM: 05/29 CKD -- Cr stable -- Baseline Cr 1.2-1.5 -- Voiding w/o difficulty -- UOP adequate Heme/ID Acute blood loss anemia -- Hgb 8.1 on 05/29Hgb low, but no clinical signs of overt bleeding. Continue to trend serially. Optimize fluid balance. Monitor stools for signs of occult GI bl eeding. --1U of pRBC 05/27, 05/28 -- Iron studies: iron- 55, % saturation 21 Leukocytosis- resolved --WBC 10.4 on 05/29 likely reactive, afebrile --Continue to monitor for fever or signs of illness Endo DMII -- Holding BRIDGE MANAGER meds (tradjenta and xigduo) - non formulary -- Aspart 8 units TID w/ meals -- HDCF, POC glucose -- Lantus 20 unit HS -- AM glucose: 105 -- Diabetic diet -- A1C 8.1 on 05/24 Hypothyroid -- BRIDGE MANAGER Levothyroxine -- TSH 0.89 MS Impaired Mobility -- PT/OT -- Rehab consulted- Acute inpt rehab Gout --BRIDGE MANAGER Allopurinol and colchicine Left Periprosthetic Hip fracture -- Ortho consulted -- s/p ORIF 05/25 -- TTWB LLE -- Ortho to maintain dressing -- ASA 81mg BID x4 weeks at discharge -- F/U with Dr. Wu in 2-3 weeks PPx SCDs, Lovenox Disp - Continue floor care. Medically stable for discharge. SW/CM following for discharge planning needs. Patient discussed with Dr. Ford during rounds. Subjective Pt eager to dc to [facility] today. Pain well controlled. Tolerating diet. Denies a ny fever/chills, nausea/emesis, dizziness, chest pain, SOA, or abd pain. Objective: Physical Exam: General: in no apparent distress, well developed and well nourished, alert, orie nted times 3, afebrile, anicteric and cooperative Head/Ears/Eyes/Nose/Throat: normal atraumatic, no neck masses, no jvd Respiratory: Clear Auscultation bilaterally, even and unlabored respirations Cardiovascular: Regular rate and rhythm, no murmurs Abdomen: soft, No Distention and No Tenderness, normal active bowel sounds Extremities: Warm and well perfused. LLE: incision to L hip with dressing in billy ce C/D/I. Edema to thigh noted, compartments soft,. SILT Neuro: Normal, alert, oriented x3, speech normal in contrext and clarity and Gla sgow Score15 Derm: Warm, dry, anicteric Musc: Normal ROM and Normal strength and tone except for LLE due to injury Vital Signs: (24 hours) BP: (114-144)/(42-56) Temp: [36.7 C (98.1 F)-37.2 C (98.9 F)] Pulse: [64-68] Respirations: [15 PER MINUTE-20 PER MINUTE] SpO2: [94 %-98 %] Intake/Output Summary: Intake/Output Summary (Last 24 hours) at 06/01/2021 0845 Last data filed at 05/31/2021 2320 Gross per 24 hour Intake 1184 ml Output 700 ml Net 484 ml Medications: Scheduled Meds:acetaminophen (TYLENOL) tablet 650 mg, 650 mg, Oral, Q6H while aw dung allopurinoL (ZYLOPRIM) tablet 300 mg, 300 mg, Oral, QDAY aspirin EC tablet 81 mg, 81 mg, Oral, QDAY carvediloL (COREG) tablet 3.125 mg, 3.125 mg, Oral, BID cholecalciferol (VITAMIN D-3) tablet 5,000 Units, 5,000 Units, Oral, QDAY enoxaparin (LOVENOX) syringe 30 mg, 30 mg, Subcutaneous, BID ezetimibe (ZETIA) tablet 10 mg, 10 mg, Oral, QDAY gabapentin (NEURONTIN) capsule 100 mg, 100 mg, Oral, QHS gabapentin (NEURONTIN) capsule 200 mg, 200 mg, Oral, QDAY insulin aspart (U-100) (NOVOLOG FLEXPEN U-100 INSULIN) injection PEN 0-24 Units, 0-24 Units, Subcutaneous, ACHS (22) insulin aspart (U-100) (NOVOLOG FLEXPEN U-100 INSULIN) injection PEN 8 Units, 8 Units, Subcutaneous, TID w/ meals insulin glargine (LANTUS SOLOSTAR U-100 INSULIN) injection PEN 20 Units, 20 Unit s, Subcutaneous, QHS(22) levothyroxine (SYNTHROID) tablet 88 mcg, 88 mcg, Oral, QDAY lidocaine (LIDODERM) 5 % topical patch 1 patch, 1 patch, Topical, QDAY melatonin (MELATIN) tablet 3 mg, 3 mg, Oral, QHS methocarbamoL (ROBAXIN) tablet 500 mg, 500 mg, Oral, TID milk of magnesia (CONC) oral suspension 10 mL, 10 mL, Oral, QDAY pantoprazole DR (PROTONIX) tablet 40 mg, 40 mg, Oral, QDAY(21) polyethylene glycol 3350 (MIRALAX) packet 17 g, 1 packet, Oral, BID rosuvastatin (CRESTOR) tablet 40 mg, 40 mg, Oral, QDAY senna/docusate (SENOKOT-S) tablet 2 tablet, 2 tablet, Oral, BID sertraline (ZOLOFT) tablet 100 mg, 100 mg, Oral, QDAY Continuous Infusions: PRN and Respiratory Meds:albuterol 0.083% Q4H PRN, colchicine QDAY PRN, hydrOXYz ine TID PRN, ondansetron (ZOFRAN) IV Q6H PRN, oxyCODONE Q4H PRN Prophylaxis Review: Peptic Ulcer Disease: None: Not indicated VTE: Pharmacological prophylaxis; Enoxaparin and Mechanical prophylaxis; Sequent ial compression device Lines, Drains, and Airways: Lines, Drains, Airways and Wounds IV Peripheral IV 05/28/21 1740 Right Anterior Forearm 20 G 3 days Wound Wounds 05/25/21 1101 Surgical incision Left;Upper Thigh 6 days Pertinent labs, medications, radiology, and diagnostic procedures reviewed inclu ding: active problem list, medication list, allergies, family history, social hi story, health maintenance, notes from last encounter, lab results, imaging Don Austin PA-C Pager: [phone] Team pager: [phone] * Tamara Ulloa, PT - 05/31/2021 3:03 PM CDT PHYSICAL THERAPY PROGRESS NOTE Name: Tanja Deal (Dee) : 1950 Age: 71 y.o. Admission Date: 05/23/2021 LOS: 8 days Mobility Patient Turn/Position: Self Progressive Mobility Level: Active transfer to chair Level of Assistance: Assist X2 Assistive Device: Walker Time Tolerated: 11-30 minutes Activity Limited By: Pain;Weakness Subjective Significant hospital events: 71 y.o. female with past medical history of hyperte nsion, ischemic cardiomyopathy status post CABG, L AGUSTIN 03/2021, admitted due to fall up curbstep, 05/25 for ORIF L periprosthetic femur fracture. Persons Present: RehabTechnician Pain: 12/16;Before activity Pain Location: Left;Leg Pain Interventions: Treatment altered to patient's pain tolerance;Patient assist ed into position of comfort;Elevation of extremity L LE Precautions: LLE Toe Touch Weight Bearing Ambulation Assist: Independent Mobility in Community with Device Patient Owned Equipment: Single Point Cane Home Situation: Lives Alone Type of Home: Apartment Entry Stairs: No Stairs In-Home Stairs: No Stairs Comments: Patient lives alone in apartment. Able to have assist from friends/fam renetta as needed. Walk in shower with bench, grab bars in shower and around toilet. Reports this is the only fall, tripping stepping up curbstep. Uses cane at base line and was independent/driving. Bed Mobility/Transfer Bed Mobility: Sit to Supine: Minimal Assist;Bed Flat;Requires Extra Time Transfer Type: Sit to/from Stand;Stand Pivot (chair-->BSC-->chair-->bed) Transfer: Assistance Level: Moderate Assist;of 1st person;Minimal Assist;of 2nd person Transfer: Assistive Device: Roller Walker Comments: For the most part, pt opts for NWB instead of TTWB. As she fatigues, requires assistance to maintain WB precaution. Pt can pivot/shuffle L or R, but has trouble backing up. Unable to functionally hop at this time. Balance Sitting Balance: Standby Assist Standing Balance: 2 UE support;Moderate Assist;x2 People Assessment/Progress Impaired Mobility Due To: Decreased Strength;Pain;Weight Bearing Restrictions;Im paired Balance;Safety Concerns;Decreased Activity Tolerance;Post Surgical Change s Assessment/Progress: Should Improve w/ Continued PT Comments: Pt is making progress with her pivoting skills (shuffles instead of ho ps, and opts for NWB instead of TTWB). Anticipate patient will be functioning a t the WC level during her recovery phase (but will continue assessing for gait p otential). Recommend ongoing Ax2 and PT. AM-PAC 6 Clicks Basic Mobility Inpatient Turning from your back to your side while in a flat bed without using bed rails: A Little Moving from lying on your back to sitting on the side of a flatbed without using bedrails : A Little Moving to and from a bed to a chair (including a wheelchair): A Lot Standing up from a chair using your arms (e.g. wheelchair, or bedside chair): A Lot To walk in hospital room: Total Climbing 3-5 steps with a railing: Total Raw Score: 12 Standardized (T-scale) Score: 32.23 Basic Mobility CMS 0-100%: 61.94 CMS G Code Modifier for Basic Mobility: CL Goals Goal Formulation: With Patient Time For Goal Achievement: 7 days Patient Will Go Supine To/From Sit: Independently Patient Will Transfer Bed/Chair: Independently Patient Will Ambulate: 101-150 Feet, w/ Walker, w/ Stand By Assist Patient Will Go Up / Down Stairs: 3-5 Stairs, w/ Stand By Assist Patient Will Propel Wheelchair: >150 Feet, w/ Stand By Assist, Ongoing Plan Treatment Interventions: Mobility Training;Strengthening;Balance Activities;Endu lenin Training Plan Frequency: 5 Days per Week PT Plan for Next Visit: Ax2. Transfers + pregait. If unable to functionally ho p, try WC mobility. Verify home setup (PLOF so no stairs but someone set a stai r goal?) PT Discharge Recommendations Recommendation: Inpatient setting;Recommend rehab medicine consult Therapist: Tamara Ulloa, PT Date: 05/31/2021 * Glenis Candelaria OTA - 05/31/2021 2:12 PM CDT OCCUPATIONAL THERAPY PROGRESS NOTE Name: Tanja Deal (Dee) : 1950 Age: 71 y.o. Admission Date: 05/23/2021 LOS: 8 days Mobility Patient Turn/Position: Self Progressive Mobility Level: Active transfer to chair Level of Assistance: Assist X2 Assistive Device: Walker Time Tolerated: 11-30 minutes Activity Limited By: Weakness Subjective Pertinent Dx per Physician: 71-year-old woman with past medical history of HTN, CAD s/p CABG 2015, CVA, CKD stage III, obesity left hip replacement and left TKR 03/2021 presented as a trauma transfer after a ground-level fall with a left per iprosthetic femur fracture. Precautions: Falls (hx L sided weakness from CVA) L LE Precautions: LLE Toe Touch Weight Bearing Pain / Complaints: Patient premedicated Pain Location: Left;Hip Pain Level Current: 3 Objective Psychosocial Status: Willing and Cooperative to Participate Persons Present: RehabTechnician;Family;Father Home Living Type of Home: Apartment Home Layout: One Level;Performs ADL'S on One Level Bathroom Shower / Tub: Walk-in Shower Prior Function Level Of [place]: Independent with ADLs and functional transfers Lives With: Alone Receives Help From: None Needed Other Function Comments: Pt. reports she has family that lives nearby that can a ssist if needed. Vision Current Vision: Wears Glasses Only for [...] stand pivot with RW t his day. Activity Tolerance Endurance: 4/5 Tolerates 30+ Minutes Exercise W/O Fatigue Cognition Overall Cognitive Status: WFL to Adequately Complete Self Care Tasks Safely Assessment Assessment: Decreased ADL Status;Decreased Endurance;Decreased High-Level ADLs;D ecreased Self-Care Trans Prognosis: Good;w/Cont OT s/p Acute Discharge Goal Formulation: Pt/family AM-PAC 6 Clicks Daily Activity Inpatient Putting on and taking off regular lower body clothes?: A Lot Bathing (Including washing, rinsing, drying): A Lot Toileting, which includes using toilet, bedpan, or urinal: A Lot Putting on and taking off regular upper body clothing: A Little Taking care of personal grooming such as brushing teeth: None Eating meals?: None Daily Activity Raw Score: 17 Standardized (t-scale) score: 37.26 CMS 0-100% Score: 50.11 CMS G Code Modifier: CK Plan OT Frequency: 5x/week OT Plan for Next Visit: progress with mobility, LB dressing, commode transfers ADL Goals Patient Will Perform All ADL's: w/ Stand By Assist Patient Will Perform Grooming: Standing at Sink;w/ Stand By Assist Patient Will Perform LE Dressing: w/ Modified Independent;w/ Adaptive Equipment Functional Transfer Goals Pt Will Perform All Functional Transfers: w/ Stand By Assist, w/ Assistive Devic es OT Discharge Recommendations Recommendation: Inpatient setting Therapist: DON Barron Date: 05/31/2021 * Aisha Laird RT - 05/31/2021 1:15 PM CDT RT Adult Assessment Note NAME:Tanja Deal :1950 AGE: 71 y.o. ADMISSION DATE: 05/23/2021 DAYS ADMITTED: LOS: 8 days RT Treatment Plan: Protocol Plan: Medications Albuterol: Nebulizer PRN Protocol Plan: Procedures PEP Therapy: Discontinued Oxygen/Humidity: Discontinued SpO2: Discontinued Additional Comments: Impressions of the patient: Patient is stable on room air, no longer on oxygen Intervention(s)/outcome(s): Discontinued Spo2 checks BID Vital Signs: Pulse: 65 RR: 15 PER MINUTE SpO2: 98 % O2%: 21 % (RA) Breath Sounds: Clear (Implies normal) Respiratory Effort: Non-Labored * Donnell Baumann MD - 05/31/2021 12:34 PM CDT Physical Medicine & Rehabilitation Consult Team Progress Note Patient name: Tanja Deal Patient age: 71 y.o. Today's Date: 05/31/2021 Admission Date: 05/23/2021 Insurance:Payor: MEDICARE / Plan: MEDICARE PART A AND B / Product Type: Medicare / Precautions: Fall, left TTWB LOS: 8 days Assessment/Plan: Principal Problem: Trauma Active Problems: Type II diabetes mellitus (HCC) Essential hypertension Hypothyroid Hyperlipidemia Class 2 severe obesity due to excess calories with serious comorbidity and bod y mass index (BMI) of 37.0 to 37.9 in adult (HCC) Anxiety CKD (chronic kidney disease) stage 3, GFR 30-59 ml/min ([facility]) Dyslipidemia associated with type 2 diabetes mellitus ([facility]) ABLA (acute blood loss anemia) CAD (coronary artery disease) S/P CABG (coronary artery bypass graft) Ischemic cardiomyopathy Degenerative arthritis of left knee Hip fracture (HCC) Thrombocytopenia ([facility]) Gait abnormality Impaired mobility/ADL Impaired transfers Tanja Deal is a 71 y.o. year old female admitted to [facility] on 05/23/2021 with the following issues: Left hip fracture status post ORIF Impairments: pain and weakness Activity Limitations: grooming, bathing, dressing - upper, dressing - lower, to ileting, transfers and ambulation Participation Restrictions: unable to return home safely Family / Patient Dispositional Goals: return home alone Recommendations: Patient has made significant functional progress with with rehab therapies and w ill certainly tolerate intensive rehab therapies at an acute inpatient rehab fac ility with goals for modified independence to standby assist for home distance m obility and self-cares. Thank you for allowing us to participate in the patient's ongoing care. Please call our consult pager with questions or concerns. Donnell Baumann MD Subjective Hospital Course and Interim History: Hospital Course: Ms. Deal is a 71 y.o. female with PMH of hypertension, CLL wi th associated thrombocytopenia, CAD status post CABG, type 2 diabetes, CKD, hist ory of left hip fracture status post arthroplasty, history of stroke without lat e effects of weakness, presenting [facility] on 05[facility]23 follo wing a fall during which the patient lost her balance while stepping over a curb landing onto her right side, denying loss of consciousness or hitting her head. She was found to have a left periprosthetic femur fracture and is now status p ost ORIF of periprosthetic left femur fracture on 05/25. Medicine service was co nsulted for geriatric trauma and to help manage multiple medical comorbidities i ncluding postoperative pain, blood loss anemia, type 2 diabetes requiring insuli n therapy, CKD stage III, depression. The primary team has consulted PT and OT, and will continue working with therapi es to address functional and mobility deficits, rehab is now consulted for post- acute rehab/placement recommendations. The patient's family/social support consists of: The patient lives alone in an a partment without any steps to enter and 1 level thereafter. She was previously modified independent for home and community distance mobility using a single-poi nt cane. She states that though she lives alone she has plenty of friends or fa stefano who can provide intermittent assistance if needed. Interval history 05/31: The patient is making significant functional progress with rehab therapies, curr ently walking very short distances with mod assist of 2 and a roller walker, min to mod assist for transfers with roller walker. Current Level Of Function: PT Gait:Gait Distance: 2 feet Gait: Assistance Level: Moderate Assist, x2 People , Safety Considerations Gait: Assistive Device: Roller Walker Bed Mobility/Transfers Bed Mobility: Rolling: Moderate Assist, x2 People (assist for BM clean up) Bed Mobility: Supine to Sit: Minimal Assist, Assist with Trunk, Use of Rail, Hea d of Bed Elevated, Requires Extra Time Bed Mobility: Sit to Supine: Standby Assist, HOB Elevated, Use of Rail, Requires Extra Time Transfer Type: Sit to/from Stand Transfer: Assistance Level: To/From, Bed, Bed Side Chair, Moderate Assist, x2 Pe ople Transfer: Assistive Device: Roller Walker Transfers: Type Of Assistance: Verbal Cues, Elevated Bed, For Balance, To [place] in Precautions, For Strength Deficit, For Safety Considerations Other Transfer Type: Stand Pivot Other Transfer: Assistance Level: From, Bed Side Chair, To, Bed, Moderate Assist , x2 People Other Transfer: Assistive Device: Roller Walker Other Transfer: Type Of Assistance: Verbal Cues, For Balance, For Strength Defic it, For Safety Considerations End Of Activity Status: In Bed, Nursing Notified, Instructed Patient to Request Assist with Mobility, Instructed Patient to Use Call Light Comments: sit to stand reps x3 working on maintaining TTWBing status, improved w ith RUE on walker and LUE pushing from the bed OT ADL's Where Assessed: Edge of Bed (bsc) Eating Assist: Independent Grooming Assist: Stand By Assist Grooming Deficits: Setup LE Dressing Assist: Maximum Assist LE Dressing Deficits: Don/Doff R Sock, Don/Doff L Sock Toileting Assist: Maximum Assist Toileting Deficits: Bedside Commode, Perineal Hygiene Comment: Pt. transferred to EOB and reported she needed to immediately go to the bathroom. Bedpan was place and patient urinated in bed jain. Pt. then requested to transfer to bedside commode to complete bowel movement. Pt. required MOD assi st x2 to transfer to bedside commode and MOD assist to complete manny-care. 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 Medications Scheduled Meds:acetaminophen (TYLENOL) tablet 650 mg, 650 mg, Oral, Q6H while aw dung allopurinoL (ZYLOPRIM) tablet 300 mg, 300 mg, Oral, QDAY aspirin EC tablet 81 mg, 81 mg, Oral, QDAY carvediloL (COREG) tablet 3.125 mg, 3.125 mg, Oral, BID cholecalciferol (VITAMIN D-3) tablet 5,000 Units, 5,000 Units, Oral, QDAY enoxaparin (LOVENOX) syringe 30 mg, 30 mg, Subcutaneous, BID ezetimibe (ZETIA) tablet 10 mg, 10 mg, Oral, QDAY gabapentin (NEURONTIN) capsule 100 mg, 100 mg, Oral, QHS gabapentin (NEURONTIN) capsule 200 mg, 200 mg, Oral, QDAY insulin aspart (U-100) (NOVOLOG FLEXPEN U-100 INSULIN) injection PEN 0-24 Units, 0-24 Units, Subcutaneous, ACHS (22) insulin aspart (U-100) (NOVOLOG FLEXPEN U-100 INSULIN) injection PEN 8 Units, 8 Units, Subcutaneous, TID w/ meals insulin glargine (LANTUS SOLOSTAR U-100 INSULIN) injection PEN 20 Units, 20 Unit s, Subcutaneous, QHS(22) levothyroxine (SYNTHROID) tablet 88 mcg, 88 mcg, Oral, QDAY lidocaine (LIDODERM) 5 % topical patch 1 patch, 1 patch, Topical, QDAY melatonin (MELATIN) tablet 3 mg, 3 mg, Oral, QHS methocarbamoL (ROBAXIN) tablet 500 mg, 500 mg, Oral, TID milk of magnesia (CONC) oral suspension 10 mL, 10 mL, Oral, QDAY pantoprazole DR (PROTONIX) tablet 40 mg, 40 mg, Oral, QDAY(21) polyethylene glycol 3350 (MIRALAX) packet 17 g, 1 packet, Oral, BID rosuvastatin (CRESTOR) tablet 40 mg, 40 mg, Oral, QDAY senna/docusate (SENOKOT-S) tablet 2 tablet, 2 tablet, Oral, BID sertraline (ZOLOFT) tablet 100 mg, 100 mg, Oral, QDAY Continuous Infusions: PRN and Respiratory Meds:albuterol 0.083% Q4H PRN, colchicine QDAY PRN, hydrOXYz ine TID PRN, ondansetron (ZOFRAN) IV Q6H PRN, oxyCODONE Q4H PRN Objective Vital Signs: Last Filed Vital Signs: 24 Mack r Range BP: 109/44 (05/31 526) Temp: 37 C (98.6 F) (05/31 526) Pulse: 56 (05/31 526) Respirations: 16 PER MINUTE (05/31 526) SpO2: 95 % (05/31 526) BP: (94-139)/(43-45) Temp: [36.7 C (98.1 F)-37.1 C (98.7 F)] Pulse: [56-68] Respirations: [16 PER MINUTE-18 PER MINUTE] SpO2: [95 %-98 %] Intensity Pain Scale (Self Report): 2 (05/30/21 1619) Vitals: 05/23/21 1847 Weight: 90.3 kg (199 lb) Intake/Output Summary: (Last 24 hours) Intake/Output Summary (Last 24 hours) at 05/31/2021 1234 Last data filed at 05/30/2021 1947 Gross per 24 hour Intake Output 450 ml Net -450 ml Stool Occurrence: 0 Last Bowel Movement Date: 05/29/21 Physical Exam VS: BP 109/44 (BP Source: Arm, Right Upper) | Pulse 56 | Temp 37 C (98.6 F ) | Ht 154.9 cm (61") | Wt 90.3 kg (199 lb) | LMP (LMP Unknown) | SpO2 95% | BMI 37.60 kg/m Body mass index is 37.6 kg/m. Gen: Alert & Oriented X 3 HEENT: EOMI Neck: Supple, no elevated JVP Heart: Extremities well perfused Lungs: non labored breathing Abdomen: Soft, non-tender, non-distended, obese Skin: no gross lesions appreciated Ext: purposeful movement of extremities Donnell Baumann MD * Raman Olson - 05/31/2021 11:21 AM CDT Reason for Visit: Rounding Allison/Yarsanism: Quaker Interventions/Plan: Pt is moving over to rehab and discussed that with adjunct phlebotomy instructor. Pt asked for prayer, adjunct phlebotomy instructor prayed for the patient for healing and stamina and that rehab would be beneficial and helpful for her. The spiritual care team is available as needed, 01/05, through the [employer] switchb oard ([phone]). For a response within 24 hours, please submit an order in O2 fo r a adjunct phlebotomy instructor consult. * Mary Saha MD - 05/31/2021 8:17 AM CDT General Progress Note Name: Tanja Deal Today's Date: 05/31/2021 Admission Date: 05/23/2021 LOS: 8 days Assessment/Plan: Principal Problem: Trauma Active Problems: Type II diabetes mellitus (HCC) Essential hypertension Hypothyroid Hyperlipidemia Class 2 severe obesity due to excess calories with serious comorbidity and bod y mass index (BMI) of 37.0 to 37.9 in adult (HCC) Anxiety CKD (chronic kidney disease) stage 3, GFR 30-59 ml/min (HCC) Dyslipidemia associated with type 2 diabetes mellitus (HCC) ABLA (acute blood loss anemia) CAD (coronary artery disease) S/P CABG (coronary artery bypass graft) Ischemic cardiomyopathy Degenerative arthritis of left knee Hip fracture (HCC) Thrombocytopenia (HCC) 71-year-old woman with past medical history of HTN, CAD s/p CABG 2015, CVA, CKD stage III, obesity left hip replacement and left TKR 03/2021 presented as a traum a transfer after a ground-level fall with a left periprosthetic femur fracture. Diabetes mellitus type 2 uncontrolled based on admit hemoglobin A1c 8.1% - BRIDGE MANAGER regimen: dapagliflozin-metformin 10-1000mg daily, linagliptin 5mg daily - associated with diabetic neuropathy and CKD stage III, BG not at goal, increas e lantus 18units and prandial aspart 8 units TID with meals (ordered on 05/28), c ontinue sliding scale insulin - Lantus increased to 20 units on 05/29 - Glucose last 24 hrs has been better controlled, ranging from 105-199 Left hip periprosthetic fracturesecondary to fall - Status post ORIF 05/25/2021,Hemovac is removed on 05/27 - reports post op pain is adequately controlled - continue Lovenox for VTE prophylaxis, rest of care plan per Ortho Acute blood loss anemia secondary to fracture and surgery Anemia and thrombocytopenia likely due to known history of CLL - patient reports that her CLL diagnosis is new with past 2 months and she is cu rrently following with OSH Heme-Onc. - Her leukocytosis during this admit is likely stress response in the setting of CLL, white cell count improved 30 K to 13K, platelet count is low 90's likely f rom recent surgery and bleeding - Patient received PRBC transfusion on 05/27 & 05/28 for anemia HGB <7gm, monitor daily with cbc - Iron panel prior to transfusion- acute phase reaction CAD status post CABG 2015 Diastolic cardiomyopathy - BRIDGE MANAGER: asa,carvedilol 6.25 mgbid,rosuvastatin 40 mg, Aldactone 25mg,and zetia - Coreg reduced to 3.125 on 05/30 due to hypotension CKD stage IIIserum creatinine is at baseline, avoid NSAIDs or studies with con trast Asthma no bronchospasms, continue BRIDGE MANAGER Combivent hypothyroidism, continue levothy roxine 88 mcg daily Obesity class II with a BMI 37.6,patient reported she is already working on we ight loss by restricting calories Gout,continue colchicine Mood disorder, depression,continue Zoloft milligrams daily. Hold BRIDGE MANAGER xanax due to risk of falls and concurrent narcotic pain medications DVT prophylaxis: Lovenox Diet: Diabetic diet Recommendations - Continue current insulin regimen - Okay to restart oral antihyperglycemics if no further interventions are planne d; she is likely not getting much benefit from linagliptin so would discontinue. She is on combined dapagliflozin-metformin 10-1000; this can be split into 2 se parate pills if needed. - Continue to monitor blood pressure, especially as patient starts standing. Wit h some recorded blood pressures in 90s systolic, would discontinue carvedilol if BP continues to be low and/or if patient experiences symptoms of hypotension. R isk of hypotension and falls outweighs benefits of tight blood pressure control in this patient. Mary Saha MD [facility] Internal medicine consult pager # [phone] Subjective Tanja Deal is a 71 y.o. female. She reports feeling well today. She has plans to work with therapy today and is looking forward to being more mobile. Sh e is urinating and having BMs without issue. 10 point ROS was completed and was negative except for pertinent positives and n egatives as listed above. Medications Scheduled Meds:acetaminophen (TYLENOL) tablet 650 mg, 650 mg, Oral, Q6H while aw dung allopurinoL (ZYLOPRIM) tablet 300 mg, 300 mg, Oral, QDAY aspirin EC tablet 81 mg, 81 mg, Oral, QDAY carvediloL (COREG) tablet 3.125 mg, 3.125 mg, Oral, BID cholecalciferol (VITAMIN D-3) tablet 5,000 Units, 5,000 Units, Oral, QDAY enoxaparin (LOVENOX) syringe 30 mg, 30 mg, Subcutaneous, BID ezetimibe (ZETIA) tablet 10 mg, 10 mg, Oral, QDAY gabapentin (NEURONTIN) capsule 100 mg, 100 mg, Oral, QHS gabapentin (NEURONTIN) capsule 200 mg, 200 mg, Oral, QDAY insulin aspart (U-100) (NOVOLOG FLEXPEN U-100 INSULIN) injection PEN 0-24 Units, 0-24 Units, Subcutaneous, ACHS (22) insulin aspart (U-100) (NOVOLOG FLEXPEN U-100 INSULIN) injection PEN 8 Units, 8 Units, Subcutaneous, TID w/ meals insulin glargine (LANTUS SOLOSTAR U-100 INSULIN) injection PEN 20 Units, 20 Unit s, Subcutaneous, QHS(22) levothyroxine (SYNTHROID) tablet 88 mcg, 88 mcg, Oral, QDAY lidocaine (LIDODERM) 5 % topical patch 1 patch, 1 patch, Topical, QDAY melatonin (MELATIN) tablet 3 mg, 3 mg, Oral, QHS methocarbamoL (ROBAXIN) tablet 500 mg, 500 mg, Oral, TID milk of magnesia (CONC) oral suspension 10 mL, 10 mL, Oral, QDAY pantoprazole DR (PROTONIX) tablet 40 mg, 40 mg, Oral, QDAY(21) polyethylene glycol 3350 (MIRALAX) packet 17 g, 1 packet, Oral, BID rosuvastatin (CRESTOR) tablet 40 mg, 40 mg, Oral, QDAY senna/docusate (SENOKOT-S) tablet 2 tablet, 2 tablet, Oral, BID sertraline (ZOLOFT) tablet 100 mg, 100 mg, Oral, QDAY Continuous Infusions: PRN and Respiratory Meds:albuterol 0.083% Q4H PRN, colchicine QDAY PRN, hydrOXYz ine TID PRN, ondansetron (ZOFRAN) IV Q6H PRN, oxyCODONE Q4H PRN Objective: Vital Signs: Last Filed Vital Signs: 24 Mack r Range BP: 109/44 (05/31 526) Temp: 37 C (98.6 F) (05/31 526) Pulse: 56 (05/31 526) Respirations: 16 PER MINUTE (05/31 526) SpO2: 95 % (05/31 526) BP: (94-139)/(39-45) Temp: [36.7 C (98.1 F)-37.1 C (98.7 F)] Pulse: [56-78] Respirations: [16 PER MINUTE-18 PER MINUTE] SpO2: [95 %-98 %] Intensity Pain Scale (Self Report): 2 (05/30/21 1619) Vitals: 05/23/21 1847 Weight: 90.3 kg (199 lb) Intake/Output Summary: (Last 24 hours) Intake/Output Summary (Last 24 hours) at 05/31/2021 08 Last data filed at 05/30/2021 1947 Gross per 24 hour Intake Output 450 ml Net -450 ml Stool Occurrence: 0 Physical Exam General appearance: cooperative and no distress Respiratory: unlabored on room air Eyes: No scleral icterus Skin: no visible rashes Neurologic: Alert, awake and oriented X 4, normal speechtone Psych: normal mood, affect and insight Lab Review 24-hour labs: Results for orders placed or performed during the hospital encounter of 05/23/21 (from the past 24 hour(s)) POC GLUCOSE Collection Time: 05/30/21 9:07 AM Result Value Ref Range Glucose, POC 146 (H) 70 - 100 MG/DL POC GLUCOSE Collection Time: 05/30/21 11:32 AM Result Value Ref Range Glucose, POC 199 (H) 70 - 100 MG/DL POC GLUCOSE Collection Time: 05/30/21 4:50 PM Result Value Ref Range Glucose, POC 174 (H) 70 - 100 MG/DL POC GLUCOSE Collection Time: 05/30/21 9:15 PM Result Value Ref Range Glucose, POC 189 (H) 70 - 100 MG/DL POC GLUCOSE Collection Time: 05/31/21 8:02 AM Result Value Ref Range Glucose, POC 105 (H) 70 - 100 MG/DL Point of Care Testing (Last 24 hours) POC Glucose (Download): (!) 105 (05/31/21 0802) Radiology and other Diagnostics Review: No pertinent radiology. Mary Saha MD * Lizeth Sanchez, BEAUTY SPECIALIST-GAME MANAGER - 05/31/2021 6:41 AM CDT Trauma Progress Note Today's Date: 05/31/2021 Hospital Day: Hospital Day: 9 HPI: Tanja Deal is a 71 y.o. female with a PMH of hypothyroidism, HTN, HLD, C AD, ischemic cardiology s/p CABG, T2DM, CKD, prior L hip fracture s/p arthroplas ty who presents as a trauma transfer after a fall. Pt states that she was steppi ng over a curb when she lost her balance and tried to catch herself on a nearby car. She slid down the car and landed on her right hip. . Pt found to have a lef t periprosthetic femur fx. Ortho was consulted and pt went to the OR on 05/25 fo r an ORIF. During her hospitalization she has struggled with acute blood loss an emia which as required multiple blood transfusions, as well as, hyperglycemia. S he is currently medically stable and progressing w/ therapies well awaiting plac ement. 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 09/15/2020 Degenerative arthritis of left knee 08/28/2019 Elevated Lp(a) 07/09/2019 Ischemic cardiomyopathy 03/01/2018 S/P CABG (coronary artery bypass graft) 07/24/2017 CAD (coronary artery disease) 07/27/2016 ABLA (acute blood loss anemia) 03/26/2016 CVA (cerebral vascular accident) ([facility]) 03/26/2016 Class 2 severe obesity due to excess calories with serious comorbidity and b ashli mass index (BMI) of 37.0 to 37.9 in adult ([facility]) 03/17/2016 Anxiety 03/17/2016 CKD (chronic kidney disease) stage 3, GFR 30-59 ml/min ([facility]) 03/17/2016 Dyslipidemia associated with type 2 diabetes mellitus (HCC) 03/17/2016 Type II diabetes mellitus ([facility]) 03/16/2016 Essential hypertension 03/16/2016 Hypothyroid 03/16/2016 Hyperlipidemia 03/16/2016 Neuro Acute pain due to trauma --Gabapentin 100mg qhs and 200mg daily -- Lidocaine patch -- Robaxin 500mg TID -- Tylenol 650mg q6hrs -- Ibuprofen 600mg TID w/ meals -- Oxycodone 5-10mg q4hrs PRN Sleep disturbance/Anxiety/Depression -- melatonin 3mg QHS -- Holding BRIDGE MANAGER Xanax- due to use of narcotic pain medications -- BRIDGE MANAGER Zoloft -- Atarax 25mg TID PRN CV HTN/HLD -- Continue BRIDGE MANAGER Rosuvastatin, ASA, Zetia, -- BRIDGE MANAGER Coreg- decreased to 3.125 due to hypotension -- Holding BRIDGE MANAGER Aldactone- due to hypotension -- HR: 60's SBP: 90's-100's -- Continue to monitor Pulm COPD -- Albuterol Nebs PRN -- Stable on RA. -- Pulmonary toilet, encourage IS GI/FEN Diabetic diet SLIV Zofran prn nausea Monitor and replace lytes prn GERD -- BRIDGE MANAGER Protonix Risk for Constipation -- Bowel regimen -- Last BM: 05/29 CKD -- Cr stable -- Baseline Cr 1.2-1.5 -- Voiding w/o difficulty -- UOP adequate Heme/ID Acute blood loss anemia -- Hgb 8.1 on 05/29Hgb low, but no clinical signs of overt bleeding. Continue to trend serially. Optimize fluid balance. Monitor stools for signs of occult GI bl eeding. --1U of pRBC 05/27, 05/28 -- Iron studies: iron- 55, % saturation Leukocytosis- resolved --WBC 10.4 on 05/29 likely reactive, afebrile --Continue to monitor for fever or signs of illness Endo DMII -- Holding BRIDGE MANAGER meds (tradjenta and xigduo) - non formulary -- Aspart 8 units TID w/ meals -- HDCF, POC glucose -- Lantus 20 unit HS -- AM glucose: 105 -- Diabetic diet -- A1C 8.1 on 05/24 Hypothyroid -- BRIDGE MANAGER Levothyroxine -- TSH 0.89 MS Impaired Mobility -- PT/OT -- Rehab consulted- Acute inpt rehab Gout --BRIDGE MANAGER Allopurinol and colchicine Left Periprosthetic Hip fracture -- Ortho consulted -- s/p ORIF 05/25 -- TTWB LLE -- Ortho to maintain dressing -- ASA 81mg BID x4 weeks at discharge -- F/U with Dr. Wu in 2-3 weeks PPx SCDs, Lovenox Disp - Continue floor care. Medically stable for discharge. SW/CM following for discharge planning needs. Patient discussed with Dr. Ford during rounds. Subjective No acute events over night. Pain controlled. Tolerating diet. Denies any fever/c hills, nausea/emesis, dizziness, chest pain, SOA, or abd pain. Objective: Physical Exam: General: in no apparent distress, well developed and well nourished, alert, orie nted times 3, afebrile, anicteric and cooperative Head/Ears/Eyes/Nose/Throat: normal atraumatic, no neck masses, no jvd Respiratory: Clear Auscultation bilaterally, even and unlabored respirations Cardiovascular: Regular rate and rhythm, no murmurs Abdomen: soft, No Distention and No Tenderness, normal active bowel sounds Extremities: Warm and well perfused. LLE: incision to L hip with dressing in billy ce C/D/I. Edema to thigh noted, compartments soft,. SILT Neuro: Normal, alert, oriented x3, speech normal in contrext and clarity and Gla sgow Score15 Derm: Warm, dry, anicteric Musc: Normal ROM and Normal strength and tone except for LLE due to injury Vital Signs: (24 hours) BP: (94-139)/(39-45) Temp: [36.7 C (98.1 F)-37.1 C (98.7 F)] Pulse: [56-78] Respirations: [16 PER MINUTE-18 PER MINUTE] SpO2: [95 %-98 %] Intake/Output Summary: Intake/Output Summary (Last 24 hours) at 05/31/2021 0626 Last data filed at 05/30/2021 1947 Gross per 24 hour Intake Output 450 ml Net -450 ml Medications: Scheduled Meds:acetaminophen (TYLENOL) tablet 650 mg, 650 mg, Oral, Q6H while aw dung allopurinoL (ZYLOPRIM) tablet 300 mg, 300 mg, Oral, QDAY aspirin EC tablet 81 mg, 81 mg, Oral, QDAY carvediloL (COREG) tablet 3.125 mg, 3.125 mg, Oral, BID cholecalciferol (VITAMIN D-3) tablet 5,000 Units, 5,000 Units, Oral, QDAY enoxaparin (LOVENOX) syringe 30 mg, 30 mg, Subcutaneous, BID ezetimibe (ZETIA) tablet 10 mg, 10 mg, Oral, QDAY gabapentin (NEURONTIN) capsule 100 mg, 100 mg, Oral, QHS gabapentin (NEURONTIN) capsule 200 mg, 200 mg, Oral, QDAY insulin aspart (U-100) (NOVOLOG FLEXPEN U-100 INSULIN) injection PEN 0-24 Units, 0-24 Units, Subcutaneous, ACHS (22) insulin aspart (U-100) (NOVOLOG FLEXPEN U-100 INSULIN) injection PEN 8 Units, 8 Units, Subcutaneous, TID w/ meals insulin glargine (LANTUS SOLOSTAR U-100 INSULIN) injection PEN 20 Units, 20 Unit s, Subcutaneous, QHS(22) levothyroxine (SYNTHROID) tablet 88 mcg, 88 mcg, Oral, QDAY lidocaine (LIDODERM) 5 % topical patch 1 patch, 1 patch, Topical, QDAY melatonin (MELATIN) tablet 3 mg, 3 mg, Oral, QHS methocarbamoL (ROBAXIN) tablet 500 mg, 500 mg, Oral, TID milk of magnesia (CONC) oral suspension 10 mL, 10 mL, Oral, QDAY pantoprazole DR (PROTONIX) tablet 40 mg, 40 mg, Oral, QDAY(21) polyethylene glycol 3350 (MIRALAX) packet 17 g, 1 packet, Oral, BID rosuvastatin (CRESTOR) tablet 40 mg, 40 mg, Oral, QDAY senna/docusate (SENOKOT-S) tablet 2 tablet, 2 tablet, Oral, BID sertraline (ZOLOFT) tablet 100 mg, 100 mg, Oral, QDAY Continuous Infusions: PRN and Respiratory Meds:albuterol 0.083% Q4H PRN, colchicine QDAY PRN, hydrOXYz ine TID PRN, ondansetron (ZOFRAN) IV Q6H PRN, oxyCODONE Q4H PRN Prophylaxis Review: Peptic Ulcer Disease: None: Not indicated VTE: Pharmacological prophylaxis; Enoxaparin and Mechanical prophylaxis; Sequent ial compression device Lines, Drains, and Airways: Lines, Drains, Airways and Wounds IV Peripheral IV 05/25/21 1056 Left Hand 20 G 5 days Peripheral IV 05/28/21 1740 Right Anterior Forearm 20 G 2 days Wound Wounds 05/25/21 1101 Surgical incision Left;Upper Thigh 5 days Pertinent labs, medications, radiology, and diagnostic procedures reviewed inclu ding: active problem list, medication list, allergies, family history, social hi story, health maintenance, notes from last encounter, lab results, imaging Lizeth Sanchez APRN-KAILEY Pager: [phone] Team pager: [phone] * Josue Burden PTA - 05/30/2021 2:55 PM CDT PHYSICAL THERAPY PROGRESS NOTE Name: Tanja Wang "Freda" Say : 1950 Age: 71 y.o. Admission Date: 05/23/2021 LOS: 7 days Mobility Progressive Mobility Level: Active transfer to chair Level of Assistance: Assist X2 Assistive Device: Walker Time Tolerated: 11-30 minutes Activity Limited By: Pain;Weakness Subjective Significant hospital events: 71 y.o. female with past medical history of hyperte nsion, ischemic cardiomyopathy status post CABG, L AGUSTIN 03/2021, admitted due to fall up [facility], 05/25 for ORIF L periprosthetic femur fracture. Mental / Cognitive Status: Alert;Oriented Persons Present: RehabTechnician;Nursing Staff;Family Pain: Patient complains of pain;12/16 Pain Location: Left;Leg Pain Description: Aching L LE Precautions: LLE Toe Touch Weight Bearing Ambulation Assist: Independent Mobility in Community with Device Patient Owned Equipment: Single Point Cane Home Situation: Lives Alone Type of Home: Apartment Entry Stairs: No Stairs In-Home Stairs: No Stairs Comments: Patient lives alone in apartment. Able to have assist from friends/fam renetta as needed. Walk in shower with bench, grab bars in shower and around toilet. Reports this is the only fall, tripping stepping up curbstep. Uses cane at base line and was independent/driving. Bed Mobility/Transfer Bed Mobility: Supine to Sit: Minimal Assist;Assist with Trunk;Use of Rail;Head o f Bed Elevated;Requires Extra Time Bed Mobility: Sit to Supine: Standby Assist;HOB Elevated;Use of Rail;Requires Ex tra Time Transfer Type: Sit to/from Stand Transfer: Assistance Level: To/From;Bed;Bed Side Chair;Moderate Assist;x2 People Transfer: Assistive Device: Roller Walker Transfers: Type Of Assistance: Verbal Cues;Elevated Bed;For Balance;To Maintain Precautions;For Strength Deficit;For Safety Considerations Other Transfer Type: Stand Pivot Other Transfer: Assistance Level: From;Bed Side Chair;To;Bed;Moderate Assist;x2 People Other Transfer: Assistive Device: Roller Walker Other Transfer: Type Of Assistance: Verbal Cues;For Balance;For Strength Deficit ;For Safety Considerations End Of Activity Status: In Bed;Nursing Notified;Instructed Patient to Request As sist with Mobility;Instructed Patient to Use Call Light Balance Sitting Balance: Static Sitting Balance;Dynamic Sitting Balance;2 UE Support;Sta ndby Assist Standing Balance: Static Standing Balance;Dynamic Standing Balance;2 UE support; Moderate Assist;x2 People Gait Gait Distance: 2 feet Gait: Assistance Level: Moderate Assist;x2 People;Safety Considerations Gait: Assistive Device: Roller Walker Gait: Descriptors: Pace: Slow Comments: Patient takes 5-6 small hops away from bed with moderate assist x2 for balance and keeping NWB precautions of LLE. Pt unable to hop backwards or compl ete turn to return to bed due to pain; opted to sit in chair and transfer back t o bed after rest. Assessment/Progress Impaired Mobility Due To: Decreased Strength;Pain;Weight Bearing Restrictions;Im paired Balance;Safety Concerns;Decreased Activity Tolerance;Post Surgical Change s Assessment/Progress: Should Improve w/ Continued PT AM-PAC 6 Clicks Basic Mobility Inpatient Turning from your back to your side while in a flat bed without using bed rails: A Little Moving from lying on your back to sitting on the side of a flatbed without using bedrails : A Little Moving to and from a bed to a chair (including a wheelchair): A Lot Standing up from a chair using your arms (e.g. wheelchair, or bedside chair): A Lot To walk in hospital room: Total Climbing 3-5 steps with a railing: Total Raw Score: 12 Standardized (T-scale) Score: 32.23 Basic Mobility CMS 0-100%: 61.94 CMS G Code Modifier for Basic Mobility: CL Goals Goal Formulation: With Patient Time For Goal Achievement: 7 days Patient Will Go Supine To/From Sit: Independently Patient Will Transfer Bed/Chair: Independently Patient Will Ambulate: 101-150 Feet, w/ Walker, w/ Stand By Assist Patient Will Go Up / Down Stairs: 3-5 Stairs, w/ Stand By Assist Plan Treatment Interventions: Mobility Training;Strengthening;Balance Activities;Endu lenin Training Plan Frequency: 5 Days per Week PT Plan for Next Visit: increase ind with bed mob, transfers, gait PT Discharge Recommendations Recommendation: Inpatient setting;Recommend rehab medicine consult Therapist: Josue Burden PTA Date: 05/30/2021 * Lizeth Sanchez APRN-GAME MANAGER - 05/30/2021 6:37 AM CDT Trauma Progress Note Today's Date: 05/30/2021 Hospital Day: Hospital Day: 8 HPI: Tanja Deal is a 71 y.o. female with a PMH of hypothyroidism, HTN, HLD, C AD, ischemic cardiology s/p CABG, T2DM, CKD, prior L hip fracture s/p arthroplas ty who presents as a trauma transfer after a fall. Pt states that she was steppi ng over a curb when she lost her balance and tried to catch herself on a nearby car. She slid down the car and landed on her right hip. . Pt found to have a lef t periprosthetic femur fx. Ortho was consulted and pt went to the OR on 05/25 fo r an ORIF. During her hospitalization she has struggled with acute blood loss an emia which as required multiple blood transfusions, as well as, hyperglycemia. S he is currently medically stable and progressing w/ therapies well awaiting plac ement. 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 09/15/2020 Degenerative arthritis of left knee 08/28/2019 Elevated Lp(a) 07/09/2019 Ischemic cardiomyopathy 03/01/2018 S/P CABG (coronary artery bypass graft) 07/24/2017 CAD (coronary artery disease) 07/27/2016 ABLA (acute blood loss anemia) 03/26/2016 CVA (cerebral vascular accident) ([facility]) 03/26/2016 Class 2 severe obesity due to excess calories with serious comorbidity and b ashli mass index (BMI) of 37.0 to 37.9 in adult ([facility]) 03/17/2016 Anxiety 03/17/2016 CKD (chronic kidney disease) stage 3, GFR 30-59 ml/min ([facility]) 03/17/2016 Dyslipidemia associated with type 2 diabetes mellitus ([facility]) 03/17/2016 Type II diabetes mellitus ([facility]) 03/16/2016 Essential hypertension 03/16/2016 Hypothyroid 03/16/2016 Hyperlipidemia 03/16/2016 Neuro Acute pain due to trauma --Vanleer 1-2 tabs Q4H PRN- D/C --Gabapentin 100mg qhs and 200mg daily -- Lidocaine patch -- Robaxin 500mg TID -- Tylenol 650mg q6hrs -- Ibuprofen 600mg TID w/ meals -- Oxycodone 5-10mg q4hrs PRN Sleep disturbance/Anxiety/Depression -- melatonin 3mg QHS -- Holding BRIDGE MANAGER Xanax- due to use of narcotic pain medications -- BRIDGE MANAGER Zoloft -- Atarax 25mg TID PRN CV HTN/HLD -- Continue BRIDGE MANAGER Rosuvastatin, ASA, Zetia, -- BRIDGE MANAGER Coreg- decreased to 3.125 due to hypotension -- Holding BRIDGE MANAGER Aldactone- due to hypotension -- HR: 70's SBP: 90's-100's -- Continue to monitor Pulm COPD -- Albuterol Nebs PRN -- Stable on RA. -- Pulmonary toilet, encourage IS GI/FEN Diabetic diet SLIV Zofran prn nausea Monitor and replace lytes prn GERD -- BRIDGE MANAGER Protonix Risk for Constipation -- Bowel regimen -- Last BM: 05/28 CKD -- Cr stable -- Baseline Cr 1.2-1.5 -- Voiding w/o difficulty -- UOP adequate Heme/ID Acute blood loss anemia -- Hgb 8.1 on 05/29Hgb low, but no clinical signs of overt bleeding. Continue to trend serially. Optimize fluid balance. Monitor stools for signs of occult GI bl eeding. --1U of pRBC 05/27, 05/28 -- Iron studies: iron- 55, % saturation 21 Leukocytosis- resolved --WBC 10.4 on 05/29 likely reactive, afebrile --Continue to monitor for fever or signs of illness Endo DMII -- Holding BRIDGE MANAGER meds (tradjenta and xigduo) - non formulary -- Aspart 8 units TID w/ meals -- HDCF, POC glucose -- Lantus 20 unit HS -- AM glucose: 162 -- Diabetic diet -- A1C 8.1 on 05/24 Hypothyroid -- BRIDGE MANAGER Levothyroxine -- TSH 0.89 MS Impaired Mobility -- PT/OT -- Rehab consulted- Acute inpt rehab Gout --BRIDGE MANAGER Allopurinol and colchicine Left Periprosthetic Hip fracture -- Ortho consulted -- s/p ORIF 05/25 -- TTWB LLE -- Ortho to maintain dressing -- ASA 81mg BID x4 weeks at discharge -- F/U with Dr. Wu in 2-3 weeks PPx SCDs, Lovenox Disp - Continue floor care. Progressive mobility with PT/OT. anticipate placeme nt upon discharge. SW/CM following for discharge planning needs. Patient discussed with Dr. Campbell during rounds. Subjective Overnight Events: No acute overnight events. Notes she slept ok overnight. Dominic ating diet. Notes increased pain which decreased her ability to sleep. Discussed current regimen and will optimize. Denies any other concerns at this time. Artemio es any LAKHANI, dizziness, CP, SOA, n/v or abd pain. Discussed plan of care and goals to discharge. Objective: Physical Exam: General: in no apparent distress, well developed and well nourished, alert, orie nted times 3, afebrile, anicteric and cooperative Head/Ears/Eyes/Nose/Throat: normal atraumatic, no neck masses, no jvd Respiratory: Clear Auscultation bilaterally, even and unlabored respirations Cardiovascular: Regular rate and rhythm, no murmurs Abdomen: soft, No Distention and No Tenderness, normal active bowel sounds Extremities: Warm and well perfused. LLE: incision to L hip with dressing in billy ce C/D/I. Edema to thigh noted, compartments soft,. SILT Neuro: Normal, alert, oriented x3, speech normal in contrext and clarity and Gla sgow Score15 Derm: Warm, dry, anicteric Musc: Normal ROM and Normal strength and tone except for LLE due to injury Vital Signs: (24 hours) BP: (105-140)/(30-49) Temp: [36.5 C (97.7 F)-37.1 C (98.8 F)] Pulse: [63-74] Respirations: [16 PER MINUTE-18 PER MINUTE] SpO2: [95 %-100 %] Intake/Output Summary: Intake/Output Summary (Last 24 hours) at 05/30/2021 0637 Last data filed at 05/29/2021 1927 Gross per 24 hour Intake 0 ml Output 750 ml Net -750 ml Medications: Scheduled Meds:allopurinoL (ZYLOPRIM) tablet 300 mg, 300 mg, Oral, QDAY aspirin EC tablet 81 mg, 81 mg, Oral, QDAY carvediloL (COREG) tablet 6.25 mg, 6.25 mg, Oral, BID cholecalciferol (VITAMIN D-3) tablet 5,000 Units, 5,000 Units, Oral, QDAY enoxaparin (LOVENOX) syringe 30 mg, 30 mg, Subcutaneous, BID ezetimibe (ZETIA) tablet 10 mg, 10 mg, Oral, QDAY gabapentin (NEURONTIN) capsule 100 mg, 100 mg, Oral, QHS gabapentin (NEURONTIN) capsule 200 mg, 200 mg, Oral, QDAY insulin aspart (U-100) (NOVOLOG FLEXPEN U-100 INSULIN) injection PEN 0-24 Units, 0-24 Units, Subcutaneous, ACHS (22) insulin aspart (U-100) (NOVOLOG FLEXPEN U-100 INSULIN) injection PEN 8 Units, 8 Units, Subcutaneous, TID w/ meals insulin glargine (LANTUS SOLOSTAR U-100 INSULIN) injection PEN 20 Units, 20 Unit s, Subcutaneous, QHS(22) levothyroxine (SYNTHROID) tablet 88 mcg, 88 mcg, Oral, QDAY lidocaine (LIDODERM) 5 % topical patch 1 patch, 1 patch, Topical, QDAY melatonin (MELATIN) tablet 3 mg, 3 mg, Oral, QHS methocarbamoL (ROBAXIN) tablet 500 mg, 500 mg, Oral, TID milk of magnesia (CONC) oral suspension 10 mL, 10 mL, Oral, QDAY pantoprazole DR (PROTONIX) tablet 40 mg, 40 mg, Oral, QDAY(21) polyethylene glycol 3350 (MIRALAX) packet 17 g, 1 packet, Oral, BID rosuvastatin (CRESTOR) tablet 40 mg, 40 mg, Oral, QDAY senna/docusate (SENOKOT-S) tablet 2 tablet, 2 tablet, Oral, BID sertraline (ZOLOFT) tablet 100 mg, 100 mg, Oral, QDAY Continuous Infusions: PRN and Respiratory Meds:albuterol 0.083% Q4H PRN, colchicine QDAY PRN, HYDROcod one/acetaminophen Q4H PRN, hydrOXYzine TID PRN, ondansetron (ZOFRAN) IV Q6H PRN Prophylaxis Review: Peptic Ulcer Disease: None: Not indicated VTE: Pharmacological prophylaxis; Enoxaparin and Mechanical prophylaxis; Sequent ial compression device Lines, Drains, and Airways: Lines, Drains, Airways and Wounds IV Peripheral IV 05/25/21 1056 Left Hand 20 G 4 days Peripheral IV 05/28/21 1740 Right Anterior Forearm 20 G 1 day Wound Wounds 05/25/21 1101 Surgical incision Left;Upper Thigh 4 days Pertinent labs, medications, radiology, and diagnostic procedures reviewed inclu ding: active problem list, medication list, allergies, family history, social hi story, health maintenance, notes from last encounter, lab results, imaging Lizeth Sanchez, BEAUTY SPECIALIST-GAME MANAGER Pager: [phone] Team pager: [phone] * Tangela Dietz RT - 05/29/2021 9:22 PM CDT RT Adult Assessment Note NAME:Tanja Deal :1950 AGE: 71 y.o. ADMISSION DATE: 05/23/2021 DAYS ADMITTED: LOS: 6 days RT Treatment Plan: Protocol Plan: Medications Albuterol: Nebulizer PRN Protocol Plan: Procedures Oxygen/Humidity: O2 to keep SpO2 > 92%, if not on any RT modality, D/C protocol if greater than 24 hours on room air SpO2: BID & PRN Additional Comments: Impressions of the patient:alert resting comfortable Intervention(s)/outcome(s): none Patient education that was completed: none Recommendations to the care team: will continue to monitor Vital Signs: Pulse: 70 RR: 16 PER MINUTE SpO2: 98 % O2 Device: Standby Liter Flow: O2%: Breath Sounds: Respiratory Effort: Non-Labored * Ladi Daniels RN - 05/29/2021 4:[address]Eli Sanchez of patient's B/P, patient is asymptomatic, new orders at t his time, will continue to monitor. * Tangela Schmid MD - 05/29/2021 1:18 PM CDT Chart reviewed. Increased Lantus 20 units qHS with am glucose improved but still elevated. Rest of plan per primary Tangela Schmid MD * Lizeth Sanchez APRN-KAILEY - 05/29/2021 6:21 AM CDT Trauma Progress Note Today's Date: 05/29/2021 Hospital Day: Hospital Day: 7 HPI: Tanja Deal is a 71 y.o. female with a PMH of hypothyroidism, HTN, HLD, C AD, ischemic cardiology s/p CABG, T2DM, CKD, prior L hip fracture s/p arthroplas ty who presents as a trauma transfer after a fall. Pt states that she was steppi ng over a curb when she lost her balance and tried to catch herself on a nearby car. She slid down the car and landed on her right hip. . Pt found to have a lef t periprosthetic femur fx. Ortho was consulted and pt went to the OR on 05/25 fo r an ORIF. During her hospitalization she has struggled with acute blood loss an emia which as required multiple blood transfusions, as well as, hyperglycemia. S he is currently medically stable and progressing w/ therapies well awaiting plac ement. 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 09/15/2020 Degenerative arthritis of left knee 08/28/2019 Elevated Lp(a) 07/09/2019 Ischemic cardiomyopathy 03/01/2018 S/P CABG (coronary artery bypass graft) 07/24/2017 CAD (coronary artery disease) 07/27/2016 ABLA (acute blood loss anemia) 03/26/2016 CVA (cerebral vascular accident) ([facility]) 03/26/2016 Class 2 severe obesity due to excess calories with serious comorbidity and b ashli mass index (BMI) of 37.0 to 37.9 in adult ([facility]) 03/17/2016 Anxiety 03/17/2016 CKD (chronic kidney disease) stage 3, GFR 30-59 ml/min ([facility]) 03/17/2016 Dyslipidemia associated with type 2 diabetes mellitus ([facility]) 03/17/2016 Type II diabetes mellitus ([facility]) 03/16/2016 Essential hypertension 03/16/2016 Hypothyroid 03/16/2016 Hyperlipidemia 03/16/2016 Neuro Acute pain due to trauma --Vanleer 1-2 tabs Q4H PRN --Gabapentin 100mg qhs and 200mg daily -- Lidocaine patch -- Robaxin 500mg TID Sleep disturbance/Anxiety/Depression -- melatonin 3mg QHS -- BRIDGE MANAGER Xanax- D/C due to use of narcotic pain medications -- BRIDGE MANAGER Zoloft -- Atarax 25mg TID PRN CV HTN/HLD --BRIDGE MANAGER Coreg, Rosuvastatin, ASA, Zetia, --BRIDGE MANAGER Aldactone- D/C due to hypotension --HR: 60's-70's SBP: 100's-100's -- Continue to monitor Pulm COPD -- Albuterol Nebs PRN -- Stable on 1L NC. Sp02:96-98% -- Titrate oxygen down with goal of room air. -- Pulmonary toilet, encourage IS GI/FEN Diabetic diet SLIV Zofran prn nausea Monitor and replace lytes prn GERD -- BRIDGE MANAGER Protonix Risk for Constipation -- Bowel regimen -- Last BM: 05/28 CKD -- Cr 0.93 -- Baseline Cr 1.2-1.5 -- Voiding w/o difficulty -- UOP adequate Heme/ID Acute blood loss anemia -- Hgb 8.1 Hgb low, but no clinical signs of overt bleeding. Continue to trend s erially. Optimize fluid balance. Monitor stools for signs of occult GI bleeding. --1U of pRBC 05/27, 05/28 -- Iron studies: iron- 55, % saturation 21 Leukocytosis- resolved --WBC 10.4 likely reactive, afebrile --Continue to monitor for fever or signs of illness Endo DMII -- Holding BRIDGE MANAGER meds (tradjenta and xigduo) - non formulary -- Aspart 8 units TID w/ meals -- HDCF, POC glucose -- Lantus 20 unit HS -- AM glucose: 254 -- Diabetic diet -- A1C 8.1 on 05/24 Hypothyroid -- BRIDGE MANAGER Levothyroxine -- TSH ordered and pending results MS Impaired Mobility -- PT/OT -- Rehab consulted- Acute inpt rehab Gout --BRIDGE MANAGER Allopurinol and colchicine Left Periprosthetic Hip fracture -- Ortho consulted -- s/p ORIF 05/25 -- TTWB LLE -- Ortho to maintain dressing -- ASA 81mg BID x4 weeks at discharge -- F/U with Dr. Wu in 2-3 weeks PPx SCDs, Lovenox Disp - Continue floor care. Progressive mobility with PT/OT. anticipate placeme nt upon discharge. SW/CM following for discharge planning needs. Patient discussed with Dr. Ogden during rounds. Subjective Overnight Events: No acute overnight events. Notes she slept well overnight. Gege erating diet. Pain is currently controlled, however reports increased pain w/ mo bilization. Discussed current regimen and will Optimize. Denies any other concer ns at this time. Denies any LAKHANI, dizziness, CP, SOA, n/v or abd pain. Discussed p bette of care and goals to discharge. Objective: Physical Exam: General: in no apparent distress, well developed and well nourished, alert, orie nted times 3, afebrile, anicteric and cooperative Head/Ears/Eyes/Nose/Throat: normal atraumatic, no neck masses, no jvd Respiratory: Clear Auscultation bilaterally, even and unlabored respirations Cardiovascular: Regular rate and rhythm, no murmurs Abdomen: soft, No Distention and No Tenderness, normal active bowel sounds Extremities: Warm and well perfused. LLE: incision to L hip with dressing in billy ce C/D/I. Edema to thigh noted, compartments soft,. SILT Neuro: Normal, alert, oriented x3, speech normal in contrext and clarity and Gla sgow Score15 Derm: Warm, dry, anicteric Musc: Normal ROM and Normal strength and tone except for LLE due to injury Vital Signs: (24 hours) BP: (102-118)/(34-63) Temp: [36.5 C (97.7 F)-37.2 C (98.9 F)] Pulse: [64-73] Respirations: [16 PER MINUTE-18 PER MINUTE] SpO2: [94 %-100 %] Intake/Output Summary: Intake/Output Summary (Last 24 hours) at 05/29/2021 0621 Last data filed at 05/29/2021 0524 Gross per 24 hour Intake 1515.75 ml Output 1950 ml Net -434.25 ml Medications: Scheduled Meds:allopurinoL (ZYLOPRIM) tablet 300 mg, 300 mg, Oral, QDAY aspirin EC tablet 81 mg, 81 mg, Oral, QDAY carvediloL (COREG) tablet 6.25 mg, 6.25 mg, Oral, BID cholecalciferol (VITAMIN D-3) tablet 5,000 Units, 5,000 Units, Oral, QDAY enoxaparin (LOVENOX) syringe 30 mg, 30 mg, Subcutaneous, BID ezetimibe (ZETIA) tablet 10 mg, 10 mg, Oral, QDAY gabapentin (NEURONTIN) capsule 100 mg, 100 mg, Oral, QHS gabapentin (NEURONTIN) capsule 200 mg, 200 mg, Oral, QDAY insulin aspart (U-100) (NOVOLOG FLEXPEN U-100 INSULIN) injection PEN 0-12 Units, 0-12 Units, Subcutaneous, 5 X Daily insulin aspart (U-100) (NOVOLOG FLEXPEN U-100 INSULIN) injection PEN 8 Units, 8 Units, Subcutaneous, TID w/ meals insulin glargine (LANTUS SOLOSTAR U-100 INSULIN) injection PEN 18 Units, 18 Unit s, Subcutaneous, QHS(22) levothyroxine (SYNTHROID) tablet 88 mcg, 88 mcg, Oral, QDAY melatonin (MELATIN) tablet 3 mg, 3 mg, Oral, QHS milk of magnesia (CONC) oral suspension 10 mL, 10 mL, Oral, QDAY pantoprazole DR (PROTONIX) tablet 40 mg, 40 mg, Oral, QDAY(21) polyethylene glycol 3350 (MIRALAX) packet 17 g, 1 packet, Oral, BID rosuvastatin (CRESTOR) tablet 40 mg, 40 mg, Oral, QDAY senna/docusate (SENOKOT-S) tablet 2 tablet, 2 tablet, Oral, BID sertraline (ZOLOFT) tablet 100 mg, 100 mg, Oral, QDAY spironolactone (ALDACTONE) tablet 25 mg, 25 mg, Oral, QDAY Continuous Infusions: PRN and Respiratory Meds:albuterol 0.083% Q4H PRN, ALPRAZolam BID PRN, colchicin e QDAY PRN, HYDROcodone/acetaminophen Q4H PRN, ondansetron (ZOFRAN) IV Q6H PRN Prophylaxis Review: Peptic Ulcer Disease: None: Not indicated VTE: Pharmacological prophylaxis; Enoxaparin and Mechanical prophylaxis; Sequent ial compression device Lines, Drains, and Airways: Lines, Drains, Airways and Wounds IV Peripheral IV 05/25/21 1056 Left Hand 20 G 3 days Peripheral IV 05/28/21 1740 Right Anterior Forearm 20 G <1 day Wound Wounds 05/25/21 1101 Surgical incision Left;Upper Thigh 3 days Pertinent labs, medications, radiology, and diagnostic procedures reviewed inclu ding: active problem list, medication list, allergies, family history, social hi story, health maintenance, notes from last encounter, lab results, imaging Lizeth Sanchez APRN-GAME MANAGER Pager: [phone] Team pager: [phone] * Glenis Candelaria OTA - 05/28/2021 3:32 PM CDT OCCUPATIONAL THERAPY NOTE Name: Tanja Deal (Dee) : 1950 Age: 71 y.o. Admission Date: 05/23/2021 LOS: 5 days Pt needing to urgently have a BM when attempting to initiate EOB transfer. Bed p an placed and RN notified. RN reports pt has been on a bowel regimen this day an d has had frequent BMs. Drop arm recliner chair left in room to prepare for slid e board transfers next session. Therapist: DON Barron Date: 05/28/2021 * Sebastián Marley MD - 05/28/2021 2:10 PM CDT General Progress Note Name: Tanja Deal Today's Date: 05/28/2021 Admission Date: 05/23/2021 LOS: 5 days Assessment/Plan: Principal Problem: Trauma Active Problems: Type II diabetes mellitus (HCC) Essential hypertension Hypothyroid Hyperlipidemia Class 2 severe obesity due to excess calories with serious comorbidity and bod y mass index (BMI) of 37.0 to 37.9 in adult (HCC) Anxiety CKD (chronic kidney disease) stage 3, GFR 30-59 ml/min (HCC) Dyslipidemia associated with type 2 diabetes mellitus (HCC) ABLA (acute blood loss anemia) CAD (coronary artery disease) S/P CABG (coronary artery bypass graft) Ischemic cardiomyopathy Degenerative arthritis of left knee Hip fracture (HCC) Thrombocytopenia (HCC) 71-year-old woman with past medical history of HTN, CAD s/p CABG 2015, CVA, CKD stage III, obesity left hip replacement and left TKR 03/2021 presented as a traum a transfer after a ground-level fall with a left periprosthetic femur fracture. Left hip periprosthetic fracturesecondary to fall Status post ORIF 05/25/2021,Hemovac is removed on 05/27 reports post op pain is adequately controlled continue Lovenox for VTE prophylaxis, rest of care plan per Ortho Acute blood loss anemia secondary to fracture and surgery Anemia and thrombocytopenia likely due to known history of CLL, patient reports that her CLL diagnosis is new with past 2 months and she is curr ently following with OSH Heme-Onc. Her leukocytosis during this admit is likely stress response in the setting of CLL, white cell count improved 30 K to 13K, pl atelet count is low 90's likely from recent surgery and bleeding, Patient received PRBC transfusion on 05/27 & 05/28 for anemia HGB <7gm, monitor daily with cbc Iron panel prior to transfusion- acute phase reaction CAD status post CABG 2015 Diastolic cardiomyopathy Continue low dose asa,carvedilol 6.25 mgbid,rosuvastatin 40 mgand zetia, patient received a unit of blood transfusion, BP and renal function being stable will resume BRIDGE MANAGER Aldactone Diabetes mellitus type 2 uncontrolled based on admit hemoglobin A1c 8.1%, associ ated with diabetic neuropathy and CKD stage III, BG not at goal, increase lantus 18units and prandial aspart 8 units TID with meals (ordered on 05/28), continue sliding scale insulin CKD stage III,serum creatinine is at baseline, avoid NSAIDs or studies with co ntrast Asthma, no bronchospasms, continue BRIDGE MANAGER Combivent hypothyroidism, continue levoth yroxine 88 mcg daily Obesity class II with a BMI 37.6,patient reported she is already working on we ight loss by restricting calories Gout,continue colchicine Mood disorder, depression,continue Zoloft milligrams daily Discussed with patient and her daughteron05/24 toget a non urgent referral for OPDEXA scan and polysomnography after dc DVT prophylaxis: Lovenox Diet: Diabetic diet Internal medicine consult pager # [phone] Subjective Tanja Kathleen Deal is a 71 y.o. female. Patient is seen and examined at bedside , no new complaints, no post op leg pain at rest, had 2 BM's today Medications Scheduled Meds:allopurinoL (ZYLOPRIM) tablet 300 mg, 300 mg, Oral, QDAY aspirin EC tablet 81 mg, 81 mg, Oral, QDAY carvediloL (COREG) tablet 6.25 mg, 6.25 mg, Oral, BID cholecalciferol (VITAMIN D-3) tablet 5,000 Units, 5,000 Units, Oral, QDAY enoxaparin (LOVENOX) syringe 30 mg, 30 mg, Subcutaneous, BID ezetimibe (ZETIA) tablet 10 mg, 10 mg, Oral, QDAY gabapentin (NEURONTIN) capsule 100 mg, 100 mg, Oral, QHS [START ON 05/29/2021] gabapentin (NEURONTIN) capsule 200 mg, 200 mg, Oral, QDAY insulin aspart (U-100) (NOVOLOG FLEXPEN U-100 INSULIN) injection PEN 0-12 Units, 0-12 Units, Subcutaneous, 5 X Daily insulin aspart (U-100) (NOVOLOG FLEXPEN U-100 INSULIN) injection PEN 6 Units, 6 Units, Subcutaneous, TID w/ meals insulin glargine (LANTUS SOLOSTAR U-100 INSULIN) injection PEN 15 Units, 15 Unit s, Subcutaneous, QHS(22) levothyroxine (SYNTHROID) tablet 88 mcg, 88 mcg, Oral, QDAY melatonin (MELATIN) tablet 3 mg, 3 mg, Oral, QHS milk of magnesia (CONC) oral suspension 10 mL, 10 mL, Oral, QDAY pantoprazole DR (PROTONIX) tablet 40 mg, 40 mg, Oral, QDAY(21) polyethylene glycol 3350 (MIRALAX) packet 17 g, 1 packet, Oral, BID rosuvastatin (CRESTOR) tablet 40 mg, 40 mg, Oral, QDAY senna/docusate (SENOKOT-S) tablet 2 tablet, 2 tablet, Oral, BID sertraline (ZOLOFT) tablet 100 mg, 100 mg, Oral, QDAY spironolactone (ALDACTONE) tablet 25 mg, 25 mg, Oral, QDAY Continuous Infusions: PRN and Respiratory Meds:albuterol 0.083% Q4H PRN, ALPRAZolam BID PRN, colchicin e QDAY PRN, HYDROcodone/acetaminophen Q4H PRN, ondansetron (ZOFRAN) IV Q6H PRN Objective: Vital Signs: Last Filed Vital Signs: 24 Mack r Range BP: 110/63 (05/28 1303) Temp: 37.2 C (98.9 F) (05/28 1303) Pulse: 69 (05/28 1303) Respirations: 16 PER MINUTE (05/28 1303) SpO2: 95 % (05/28 1303) BP: (109-120)/(38-91) Temp: [36.6 C (97.9 F)-37.3 C (99.1 F)] Pulse: [67-82] Respirations: [16 PER MINUTE] SpO2: [95 %-98 %] Intensity Pain Scale (Self Report): 3 (05/28/21 0836) PAINAD Total Score: 0 (05/27/212127) Vitals: 05/23/21 1847 Weight: 90.3 kg (199 lb) Intake/Output Summary: (Last 24 hours) Intake/Output Summary (Last 24 hours) at 05/28/2021 1414 Last data filed at 05/28/2021 0927 Gross per 24 hour Intake 680 ml Output 225 ml Net 455 ml Stool Occurrence: 1 Physical Exam General appearance: cooperative and no distress Respiratory: clear to auscultation bilaterally, no wheezing or rales Cardiovascular: regular rate and rhythm, S1, S2 normal, no murmur or gallop GI: Abdomen: soft, non distended, non-tender, bowel sounds are present Extremities: moves all limbs, no edema Genitourinary: no bladder distension Skin: dry, no rashes Neurologic: Alert, awake and oriented X 4, normal speech, normal strength and to ne Psych: normal mood, affect and insight Lab Review 24-hour labs: Results for orders placed or performed during the hospital encounter of 05/23/21 (from the past 24 hour(s)) CBC Collection Time: 05/27/21 2:25 PM Result Value Ref Range White Blood Cells 17.1 (H) 4.5 - 11.0 K/UL RBC 2.35 (L) 4.0 - 5.0 M/UL Hemoglobin 7.4 (L) 12.0 - 15.0 GM/DL Hematocrit 22.1 (L) 36 - 45 % MCV 94.2 80 - 100 FL MCH 31.6 26 - 34 PG MCHC 33.6 32.0 - 36.0 G/DL RDW 19.2 (H) 11 - 15 % Platelet Count 97 (L) 150 - 400 K/UL MPV 9.2 7 - 11 FL POC GLUCOSE Collection Time: 05/27/21 4:36 PM Result Value Ref Range Glucose, POC 288 (H) 70 - 100 MG/DL POC GLUCOSE Collection Time: 05/27/21 6:44 PM Result Value Ref Range Glucose, POC 301 (H) 70 - 100 MG/DL POC GLUCOSE Collection Time: 05/27/21 8:57 PM Result Value Ref Range Glucose, POC 270 (H) 70 - 100 MG/DL POC GLUCOSE Collection Time: 05/28/21 3:04 AM Result Value Ref Range Glucose, POC 201 (H) 70 - 100 MG/DL CBC Collection Time: 05/28/21 5:44 AM Result Value Ref Range White Blood Cells 13.5 (H) 4.5 - 11.0 K/UL RBC 2.20 (L) 4.0 - 5.0 M/UL Hemoglobin 6.8 (L) 12.0 - 15.0 GM/DL Hematocrit 21.2 (L) 36 - 45 % MCV 96.1 80 - 100 FL MCH 31.0 26 - 34 PG MCHC 32.2 32.0 - 36.0 G/DL RDW 19.5 (H) 11 - 15 % Platelet Count 97 (L) 150 - 400 K/UL MPV 9.2 7 - 11 FL COMPREHENSIVE METABOLIC PANEL Collection Time: 05/28/21 5:44 AM Result Value Ref Range Sodium 137 137 - 147 MMOL/L Potassium 4.3 3.5 - 5.1 MMOL/L Chloride 102 98 - 110 MMOL/L Glucose 186 (H) 70 - 100 MG/DL Blood Urea Nitrogen 19 7 - 25 MG/DL Creatinine 1.01 (H) 0.4 - 1.00 MG/DL Calcium 8.0 (L) 8.5 - 10.6 MG/DL Total Protein 4.9 (L) 6.0 - 8.0 G/DL Total Bilirubin 0.7 0.3 - 1.2 MG/DL Albumin 3.0 (L) 3.5 - 5.0 G/DL Alk Phosphatase 46 25 - 110 U/L AST (SGOT) 23 7 - 40 U/L CO2 32 (H) 21 - 30 MMOL/L ALT (SGPT) 9 7 - 56 U/L Anion Gap 3 3 - 12 eGFR Non 54 (L) >60 mL/min eGFR >60 >60 mL/min MAGNESIUM Collection Time: 05/28/21 5:44 AM Result Value Ref Range Magnesium 2.1 1.6 - 2.6 mg/dL PHOSPHORUS Collection Time: 05/28/21 5:44 AM Result Value Ref Range Phosphorus 2.1 2.0 - 4.5 MG/DL POC GLUCOSE Collection Time: 05/28/21 7:25 AM Result Value Ref Range Glucose, POC 205 (H) 70 - 100 MG/DL TYPE & CROSSMATCH Collection Time: 05/28/21 11:10 AM Result Value Ref Range Units Ordered 1 Crossmatch Expires 05/31/2021,2358 Record Check FOUND ABO/RH(D) A POS Antibody Screen NEG Electronic Crossmatch YES Unit Number [id number] Blood Component Type RBC,ADSOL,LEUKO REDUCED Unit Division 00 Status OF Unit ISSUED ISSUE DATE TIME PRODUCT CODE [id number] BLOOD TYPE A POS CODING STATUS 6200 BLOOD EXPIRATION DATE [id number] Transfusion Status OK TO TRANSFUSE Crossmatch Result COMPATIBLE,ELECTRONIC POC GLUCOSE Collection Time: 05/28/21 11:45 AM Result Value Ref Range Glucose, POC 305 (H) 70 - 100 MG/DL Point of Care Testing (Last 24 hours) Glucose: (!) 186 (05/28/21 0544) POC Glucose (Download): (!) 305 (05/28/21 1145) Radiology and other Diagnostics Review: No pertinent radiology. Sebastián Marley MD Pager: # [phone] * Lissa Steinberg - 05/28/2021 12:13 PM CDT Vascular Access Team consulted to obtain lab specimen. Ultrasound Used: Yes How Many Attempts: 1 Location of Unsuccessful Attempts: na At 1212 approximately 6 ml of blood obtained from RAC. Patient tolerated the pro cedure well. Specimen labeled and sent to lab. * Cassie Steele, PT - 05/28/2021 12:07 PM CDT PHYSICAL THERAPY PROGRESS NOTE Name: Tanja Deal (Dee) : 1950 Age: 71 y.o. Admission Date: 05/23/2021 LOS: 5 days Mobility Patient Turn/Position: Supine Progressive Mobility Level: Stand Level of Assistance: Assist X2 Assistive Device: Walker Time Tolerated: 31-60 minutes Activity Limited By: Pain;Weakness Subjective Significant hospital events: 71 y.o. female with past medical history of hyperte nsion, ischemic cardiomyopathy status post CABG, L AGUSTIN 03/2021, admitted due to fall up curbstep, 05/25 for ORIF L periprosthetic femur fracture. Mental / Cognitive Status: Alert;Oriented Persons Present: RehabTechnician;Nursing Staff Pain: Patient complains of pain;Patient does not rate pain Pain Location: Left;Leg Pain Description: Aching L LE Precautions: LLE Toe Touch Weight Bearing Ambulation Assist: Independent Mobility in Community with Device Patient Owned Equipment: Single Point Cane Home Situation: Lives Alone Type of Home: Apartment Entry Stairs: No Stairs In-Home Stairs: No Stairs Comments: Patient lives alone in apartment. Able to have assist from friends/fam renetta as needed. Walk in shower with bench, grab bars in shower and around toilet. Reports this is the only fall, tripping stepping up curbstep. Uses cane at base line and was independent/driving. Bed Mobility/Transfer Bed Mobility: Rolling: Moderate Assist;x2 People (assist for BM clean up) Bed Mobility: Supine to Sit: Minimal Assist;Assist with Trunk;Use of Rail;Head o f Bed Elevated Bed Mobility: Sit to Supine: Minimal Assist;Requires Extra Time;Assist with L LE ;Use of Rail Transfer Type: Sit to/from Stand (x3 trials) Transfer: Assistance Level: To/From;Bed;Moderate Assist;x2 People Transfer: Assistive Device: Roller Walker Transfers: Type Of Assistance: Verbal Cues;Elevated Bed;For Balance;To Maintain Precautions;For Strength Deficit;For Safety Considerations End Of Activity Status: In Bed;Nursing Notified;Instructed Patient to Request As sist with Mobility;Instructed Patient to Use Call Light Comments: sit to stand reps x3 working on maintaining TTWBing status, improved w ith RUE on walker and LUE pushing from the bed Balance Sitting Balance: Static Sitting Balance;Dynamic Sitting Balance;2 UE Support;Sta ndby Assist Standing Balance: Static Standing Balance;Dynamic Standing Balance;2 UE support; Moderate Assist;x2 People Activity/Exercise Exercise: Supine;LLE;Total Hip Exercise Repetitions: 5 Education Persons Educated: Patient Patient Barriers To Learning: Anxiety;Pain Interventions: Repetition of Instructions Teaching Methods: Verbal Instruction;Demonstration Patient Response: More Instruction Required Topics: Plan/Goals of PT Interventions;Use of Assistive Device/Orthosis;Mobility Progression;Precautions;Safety Awareness;Up with Assist Only;Recommend Continued Therapy Assessment/Progress Impaired Mobility Due To: Decreased Strength;Pain;Weight Bearing Restrictions;Im paired Balance;Safety Concerns;Decreased Activity Tolerance;Post Surgical Change s Assessment/Progress: Should Improve w/ Continued PT AM-PAC 6 Clicks Basic Mobility Inpatient Turning from your back to your side while in a flat bed without using bed rails: A Little Moving from lying on your back to sitting on the side of a flatbed without using bedrails : A Little Moving to and from a bed to a chair (including a wheelchair): A Lot Standing up from a chair using your arms (e.g. wheelchair, or bedside chair): A Lot To walk in hospital room: Total Climbing 3-5 steps with a railing: Total Raw Score: 12 Standardized (T-scale) Score: 32.23 Basic Mobility CMS 0-100%: 61.94 CMS G Code Modifier for Basic Mobility: CL Goals Goal Formulation: With Patient Time For Goal Achievement: 7 days Patient Will Go Supine To/From Sit: Independently Patient Will Transfer Bed/Chair: Independently Patient Will Ambulate: 101-150 Feet, w/ Walker, w/ Stand By Assist Patient Will Go Up / Down Stairs: 3-5 Stairs, w/ Stand By Assist Plan Treatment Interventions: Mobility Training;Strengthening;Balance Activities;Endu lenin Training Plan Frequency: 5 Days per Week PT Plan for Next Visit: increase ind with bed mob, transfers, gait PT Discharge Recommendations Recommendation: Inpatient setting;Recommend rehab medicine consult Therapist: Cassie Steele PT, DPT, AM Date: 05/28/2021 * Alma Rosa Jaramillo PA-C - 05/28/2021 8:53 AM CDT Orthopedic Ortho TraumaProgress Note A/P: Tanja Deal is a 71F w/ L periprosthetic proximal femur fx s/p ORIF 05/25 - PT/OT - WB status: TTWB LLE - Pulled HV drain today - Abx: Ancef x 24 hrs post op (ordered) - Pain control per primary team - Ortho to maintain dressings - Call ortho with questions - May resume diet from orthopedic standpoint - Disposition: Pt will not require foreseeable future Orthopedic surgical operat ben intervention during this admission DC Recs: Ortho DC Recs: -Recommend ppx Lovenox while inpatient, ASA 81mg PO bid x 4 weeks upon discharge . -Leave dressings in place until follow up appointment unless saturated then ok t o replace with 4x4 gauze and tegaderm/hypafix. If any new drainage seen or cris rns for infection, please contact Dr. Wu's office @ [phone]. -Toe touch weightbearing left lower extremity. -Do not get incisions wet. Keep dressings dry. Sponge bathe until follow up appo intment. -Follow up with Dr. Wu 2-3 weeks post operative by calling [phone] to darnell escobar. Should you have a question or concern regarding your orthopedic care or injuries please call our nurse's line at [phone]. Our clinic is located on the 2nd floor of the [facility] on [facility], across from the [facility]. The clinic address is [address], [place] [address] Alma Rosa Jaramillo PA-C [address]: No acute events. Pain controlled. Tolerating diet. Denies fevers, chills, n ausea, vomiting. O: Blood pressure 113/47, pulse 72, temperature 37 C (98.6 F), height 154.9 cm (61"), weight 90.3 kg (199 lb), SpO2 96 %. Body mass index is 37.6 kg/m. Obesity (30 to <40) Exam: GEN: Alert. NAD CV: Normal rate, regular rhythm PULM: Non-labored ABD: Soft, non-distended Pressure Injury: No pressure injury EXTREM: Extremities: LLE: aquacel dressing over lateral thigh, hemovac drain in place holding suction , NVI distally, TA/GS, EHL/FHL intact. SILT in DP/SP/Tib/Kaela/Saph distribution s, DP/PT palpable, Cap refill < 2 sec, soft compartments. Dressings: Dressings clean, dry, and intact. Output by Drain (mL) 05/26/21 07 - 05/26/21 19005/26/211900 - 05/27/21 0705/27/21 07 - 05/27/21 19005/27/21 190 - 05/28/21 0705/28/21 0701 - 0855 Hemovac Drain 05/25/21 1318 Left;Upper Leg 19 0 0 0 Active Wounds Wounds 05/25/21 1101 Surgical incision Left;Upper Thigh (Active) 05/25/21 1101 Thigh Wound Type: Surgical incision Pressure Injury Stages: Pressure Injury Present On Inpatient Admission: Wound/Pressure Injury Orientation: Left;Upper Wound Location Comments: Wound Description (Comments): Wound Type:: Wound Dressing Status Intact 05/27/212127 Wound Dressing and / or Treatment Aquacel AG;Gauze;Xeroform gauze 05/27/212127 Wound Drainage Amount None 05/27/212127 Wound Base Assessment Dressing intact, base not assessed 05/27/212127 Surrounding Skin Assessment Intact 05/27/212127 Wound Site Closure Kourtney;Sutures 05/25/21 1415 Number of days: 3 Resulted Micro Last 72 Hrs No results found Output by Drain (mL) 05/24/21 0701 - 05/24/21 1900 05/24/21 1901 - 05/25/21 0700 05/25/21 0701 - 05/25/21 1900 05/25/21 1901 - 05/26/21 0700 05/26/21 0701 - 1341 Hemovac Drain 05/25/21 1318 Left;Upper Leg 63 36.5 13 Complete Blood Counts Recent Labs 05/26/21 0558 05/27/21 0417 05/27/21 1425 05/28/21 0544 HGB 8.3* 6.6* 7.4* 6.8* HCT 25.4* 20.1* 22.1* 21.2* WBC 30.2* 13.8* 17.1* 13.5* PLTCT 105* 93* 97* 97* Chemistry Panel Recent Labs 05/26/21 0558 05/27/21 0417 05/28/21 0544 NA 136* 135* 137 K 4.9 4.2 4.3 CL 102 102 102 CO2 25 29 32* BUN 25 25 19 CR 1.23* 1.28* 1.01* GLU 182* 245* 186* MG 1.9 1.9 2.1 CA 7.9* 7.9* 8.0* PO4 4.0 2.4 2.1 Coagulation Studies No results for input(s): PTT, INR in the last 72 hours. 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 Endoscopic harvesting of the left greater saphenous ve in. - Dr. Byrd (Hosp) CAD (coronary artery disease) (Hosp) ABLA (acute blood loss anemia) CVA (cerebral vascular accident) ([facility]) (Hosp) Class 2 severe obesity due to excess calories with serious comorbidi ty and body mass index (BMI) of 37.0 to 37.9 in adult ([facility]) (Hosp) Anxiety (Hosp) CKD (chronic kidney disease) stage 3, GFR 30-59 ml/min ([facility]) (Hosp) Dyslipidemia associated with type 2 diabetes mellitus (HCC) (Hosp) Type II diabetes mellitus ([facility]) (Hosp) Essential hypertension (Hosp) Hypothyroid (Hosp) Hyperlipidemia * Adriana Granger APRN-NP - 05/28/2021 7:07 AM CDT Trauma Progress Note Today's Date: 05/28/2021 Hospital Day: Hospital Day: 6 HPI: Tanja Deal is a 71 y.o. female with a PMH of hypothyroidism, HTN, HLD, C AD, ischemic cardiology s/p CABG, T2DM, CKD, prior L hip fracture s/p arthroplas ty who presents as a trauma transfer after a fall. Pt states that she was steppi ng over a curb when she lost her balance and tried to catch herself on a nearby car. She slid down the car and landed on her right hip. She did not hit her head and denies LOC. She is only complaining of pain in her LEFT hip. Pt found to lakhani ve a left periprosthetic femur fx. Ortho was consulted and pt went to the OR on 05/25. Pt overall has a long surgical history. She had a prior fracture of her left hip requiring pinning in 09/2016. She additionally had a prior L knee arthroplasty in 08/2019. She had a 3-vessel CABG in 03/2016. Her only abdominal surgery is a prior laproscopic cholecystectomy. Pt had a prior stroke immediately following her open heart surgery in 2015. She is not taking any blood thinners. In regards to her diabetes, she has trajenta, and xigduo, as well as 10 units of long-acting basal insulin a day. Her last HA1 c in the system was 12.4 on 02/02/2021. 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 09/15/2020 Degenerative arthritis of left knee 08/28/2019 Elevated Lp(a) 07/09/2019 Ischemic cardiomyopathy 03/01/2018 S/P CABG (coronary artery bypass graft) 07/24/2017 CAD (coronary artery disease) 07/27/2016 ABLA (acute blood loss anemia) 03/26/2016 CVA (cerebral vascular accident) ([facility]) 03/26/2016 Class 2 severe obesity due to excess calories with serious comorbidity and b ashli mass index (BMI) of 37.0 to 37.9 in adult ([facility]) 03/17/2016 Anxiety 03/17/2016 CKD (chronic kidney disease) stage 3, GFR 30-59 ml/min ([facility]) 03/17/2016 Dyslipidemia associated with type 2 diabetes mellitus ([facility]) 03/17/2016 Type II diabetes mellitus ([facility]) 03/16/2016 Essential hypertension 03/16/2016 Hypothyroid 03/16/2016 Hyperlipidemia 03/16/2016 Neuro Acute pain due to trauma --Vanleer 1-2 tabs Q4H PRN --Gabapentin 100mg po BID Sleep disturbance/Anxiety/Depression --melatonin 3mg QHS --BRIDGE MANAGER Xanax and Zoloft CV HDS. See VS summary below Continue to monitor HTN/HLD --BRIDGE MANAGER Coreg, Rosuvastatin, ASA, Zetia Pulm Stable on RA. SpO2 94 Pulmonary toilet, encourage IS COPD --Albuterol Nebs GI/FEN Regular diet Bowel regimen SLIV Zofran prn nausea Monitor and replace lytes prn GERD --Protonix Voiding w/o difficulty UOP good CKD --Cr 1.28 (CKD w/ baseline Cr 1.2-1.5) Heme/ID Acute blood loss anemia -- Hgb 6.8 (7.4) (6.6). Hgb low, but no clinical signs of overt bleeding. Contin ue to trend serially. Optimize fluid balance. Monitor stools for signs of occult GI bleeding. --1U of pRBC 05/27 --Asymptomatic other than weakness at this time --1U again pRBCs on 05/28 Leukocytosis --WBC 13.5 (17.1) and falling- likely reactive --Continue to monitor for fever or signs of illness Endo DMII --SSI Regular Insulin 5xday Hypothyroid --BRIDGE MANAGER Levothyroxine MS PT/OT Gout --BRIDGE MANAGER Allopurinol and colchicine Left Periprosthetic Hip fracture -- TTWB LLE --HV in place --OR with Ortho on 05/25 --recommend lovenox while in house, followed by asa 81 mg BID x 4 weeks --Upon discharge, please have the patient f/u with Dr. Wu from [facility] in 2 weeks by calling [phone] PPx SCDs, Lovenox Disp - PT/OT/paoin control - anticipate placement- rehab consult placed SW/CM following for discharge planning needs. Patient discussed with Dr. Bennett during rounds. Subjective Overnight Events: No acute overnight events. Pts HGB dropped again overnight and This was discussed with the pt. Discussed 2 unit of blood today and she reports an understanding and is agreeable to this. Pt states her pain remains controll ed. Discussed further plan of care at this time. Willl continue to monitor. Artemio es any current needs. Objective: Physical Exam: General: in no apparent distress, well developed and well nourished, alert, orie nted times 3, afebrile, anicteric and cooperative Head/Ears/Eyes/Nose/Throat: normal atraumatic, no neck masses, no jvd Respiratory: Clear Auscultation bilaterally, even and unlabored respirations Cardiovascular: Regular rate and rhythm, no murmurs Abdomen: No Distention and No Tenderness, normal active bowel sounds Extremities: Warm and well perfused and No edema, incision to L hip with dressin g in place C/D/I. Edema to thigh noted and much softer. 2+ distal pulses, warm t o touch and sensation intact. HV in place with bloody drainage Neuro: alert, oriented x3, speech normal in contrext and clarity, memory intact grossly, motor strength: full proximally and distally, no involuntary movements - tremors, sensation: intact to vibration, pain, and light touch and Lexis Sco re 15 Derm: Warm, dry, anicteric Musc: Normal ROM and Normal strength and tone except for LLE due to injury Vital Signs: (24 hours) BP: (109-120)/(33-91) Temp: [36.7 C (98.1 F)-37.3 C (99.1 F)] Pulse: [67-82] Respirations: [14 PER MINUTE-16 PER MINUTE] SpO2: [94 %-98 %] Intake/Output Summary: Intake/Output Summary (Last 24 hours) at 05/28/2021 0707 Last data filed at 05/28/2021 0612 Gross per 24 hour Intake 693.25 ml Output 975 ml Net -281.75 ml Date of Last Stool: BRIDGE MANAGER- increased Medications: Scheduled Meds:allopurinoL (ZYLOPRIM) tablet 300 mg, 300 mg, Oral, QDAY aspirin EC tablet 81 mg, 81 mg, Oral, QDAY carvediloL (COREG) tablet 6.25 mg, 6.25 mg, Oral, BID cholecalciferol (VITAMIN D-3) tablet 5,000 Units, 5,000 Units, Oral, QDAY enoxaparin (LOVENOX) syringe 30 mg, 30 mg, Subcutaneous, BID ezetimibe (ZETIA) tablet 10 mg, 10 mg, Oral, QDAY gabapentin (NEURONTIN) capsule 100 mg, 100 mg, Oral, BID insulin aspart (U-100) (NOVOLOG FLEXPEN U-100 INSULIN) injection PEN 0-12 Units, 0-12 Units, Subcutaneous, 5 X Daily insulin aspart (U-100) (NOVOLOG FLEXPEN U-100 INSULIN) injection PEN 6 Units, 6 Units, Subcutaneous, TID w/ meals insulin glargine (LANTUS SOLOSTAR U-100 INSULIN) injection PEN 15 Units, 15 Unit s, Subcutaneous, QHS(22) levothyroxine (SYNTHROID) tablet 88 mcg, 88 mcg, Oral, QDAY melatonin (MELATIN) tablet 3 mg, 3 mg, Oral, QHS milk of magnesia (CONC) oral suspension 10 mL, 10 mL, Oral, QDAY pantoprazole DR (PROTONIX) tablet 40 mg, 40 mg, Oral, QDAY(21) polyethylene glycol 3350 (MIRALAX) packet 17 g, 1 packet, Oral, BID potassium phosphate (K-PHOS ORIGINAL) dispersable tablet 2 tablet, 2 tablet, Ora l, ONCE rosuvastatin (CRESTOR) tablet 40 mg, 40 mg, Oral, QDAY senna/docusate (SENOKOT-S) tablet 2 tablet, 2 tablet, Oral, BID sertraline (ZOLOFT) tablet 100 mg, 100 mg, Oral, QDAY Continuous Infusions: PRN and Respiratory Meds:albuterol 0.083% Q4H PRN, ALPRAZolam BID PRN, colchicin e QDAY PRN, HYDROcodone/acetaminophen Q4H PRN, ondansetron (ZOFRAN) IV Q6H PRN Prophylaxis Review: Peptic Ulcer Disease: None: Not indicated VTE: Pharmacological prophylaxis; Enoxaparin and Mechanical prophylaxis; Sequent ial compression device Lines, Drains, and Airways: Lines, Drains, Airways and Wounds IV Peripheral IV 05/23/21 1908 Left Antecubital 20 G 4 days Peripheral IV 05/25/21 1056 Left Hand 20 G 2 days Drain Hemovac Drain 05/25/21 1318 Left;Upper Leg 2 days Wound Wounds 05/25/21 1101 Surgical incision Left;Upper Thigh 2 days Pertinent labs, medications, radiology, and diagnostic procedures reviewed inclu ding: active problem list, medication list, allergies, family history, social hi story, health maintenance, notes from last encounter, lab results, imaging Adriana Granger, BEAUTY SPECIALIST-GAME MANAGER [id number] Trauma Team Pager [phone] * Glenis Candelaria OTA - 05/27/2021 4:30 PM CDT OCCUPATIONAL THERAPY PROGRESS NOTE Name: Tanja Wang "Janeen Deal : 1950 Age: 71 y.o. Admission Date: 05/23/2021 LOS: 4 days Mobility Patient Turn/Position: Self Progressive Mobility Level: Active transfer to chair Level of Assistance: Assist X2 Assistive Device: Transfer / slide board Time Tolerated: 11-30 minutes Activity Limited By: Pain;Weakness Subjective Pertinent Dx per Physician: 71-year-old woman with past medical history of HTN, CAD s/p CABG 2015, CVA, CKD stage III, obesity left hip replacement and left TKR 03/2021 presented as a trauma transfer after a ground-level fall with a left per iprosthetic femur fracture. Precautions: Falls L LE Precautions: LLE Toe Touch Weight Bearing Objective Psychosocial Status: Willing and Cooperative to Participate Persons Present: RehabTechnician;Family Home Living Type of Home: Apartment Home Layout: One Level;Performs ADL'S on One Level Bathroom Shower / Tub: Walk-in Shower Prior Function Level Of [place]: Independent with ADLs and functional transfers Lives With: Alone Receives Help From: None Needed Other Function Comments: Pt. reports she has family that lives nearby that can a ssist if needed. Vision Current Vision: Wears Glasses Only for Reading ADL's Where Assessed: Edge of Bed (bsc) Eating Assist: Independent Grooming Assist: Stand By Assist Grooming Deficits: Setup LE Dressing Assist: Maximum Assist LE Dressing Deficits: Don/Doff R Sock;Don/Doff L Sock Toileting Assist: Maximum Assist Toileting Deficits: Bedside Commode;Perineal Hygiene ADL Mobility Bed Mobility: Supine to Sit: Moderate assist Bed Mobility: Sit to Supine: Minimal assist;x2 people Transfer Type: Stand pivot Transfer: Assistance Level: x2 people;From;Commode;To;Bed;Maximum assist Transfer: Assistive Device: Hand hold assist Other Transfer Type: Sliding board Other Transfer: Assistance Level: From;Bed;To;Commode;Moderate assist;of 1st per son;Standby assist;of 2nd person Other Transfer: Assistive Device: Transfer/slide board End of Activity Status: Nursing notified;In bed Transfer Comments: Needs cues to follow TTWB Activity Tolerance Endurance: 4/5 Tolerates 30+ Minutes Exercise W/O Fatigue Cognition Overall Cognitive Status: WFL to Adequately Complete Self Care Tasks Safely Education Persons Educated: Patient/Family Barriers To Learning: Pain Teaching Methods: Verbal Instruction;Demonstration Patient Response: Verbalized and Demo Understanding Topics: Role of OT, Goals for Therapy Goal Formulation: With Patient/Family Assessment Assessment: Decreased ADL Status;Decreased Endurance;Decreased High-Level ADLs;D ecreased Self-Care Trans Prognosis: Good;w/Cont OT s/p Acute Discharge Goal Formulation: Pt/family AM-PAC 6 Clicks Daily Activity Inpatient Putting on and taking off regular lower body clothes?: A Lot Bathing (Including washing, rinsing, drying): A Lot Toileting, which includes using toilet, bedpan, or urinal: A Lot Putting on and taking off regular upper body clothing: A Little Taking care of personal grooming such as brushing teeth: A Little Eating meals?: None Daily Activity Raw Score: 16 Standardized (t-scale) score: 35.96 CMS 0-100% Score: 53.32 CMS G Code Modifier: CK Plan OT Frequency: 5x/week OT Plan for Next Visit: progress with mobility, LB dressing, commode transfers ADL Goals Patient Will Perform All ADL's: w/ Stand By Assist Patient Will Perform Grooming: Standing at Sink;w/ Stand By Assist Patient Will Perform LE Dressing: w/ Modified Independent;w/ Adaptive Equipment Functional Transfer Goals Pt Will Perform All Functional Transfers: w/ Stand By Assist, w/ Assistive Devic es OT Discharge Recommendations Recommendation: Inpatient setting Therapist: DON Barron Date: 05/27/2021 * Sebastián Marley MD - 05/27/2021 3:36 PM CDT General Progress Note Name: Tanja Deal Today's Date: 05/27/2021 Admission Date: 05/23/2021 LOS: 4 days Assessment/Plan: Principal Problem: Trauma Active Problems: Type II diabetes mellitus (HCC) Essential hypertension Hypothyroid Hyperlipidemia Class 2 severe obesity due to excess calories with serious comorbidity and bod y mass index (BMI) of 37.0 to 37.9 in adult (HCC) Anxiety CKD (chronic kidney disease) stage 3, GFR 30-59 ml/min (HCC) Dyslipidemia associated with type 2 diabetes mellitus (HCC) ABLA (acute blood loss anemia) CAD (coronary artery disease) S/P CABG (coronary artery bypass graft) Ischemic cardiomyopathy Degenerative arthritis of left knee Hip fracture (HCC) Thrombocytopenia (HCC) 71-year-old woman with past medical history of HTN, CAD s/p CABG 2015, CVA, CKD stage III, obesity left hip replacement and left TKR 03/2021 presented as a traum a transfer after a ground-level fall with a left periprosthetic femur fracture. Left hip periprosthetic fracturesecondary to fall Status post ORIF 05/25/2021, after procedure she received Hemovac Patient reports her pain is adequately controlled after receiving nerve block la st night and with the current oral pain regimen, continue Lovenox for VTE prophy laxis, rest of care plan per Ortho Acute blood loss anemia secondary to fracture and surgery Anemia and thrombocytopenia likely due to known history of CLL, patient is currently following with her oncologist in [place], patient had a leuk ocytosis likely a stress response in the setting of CLL, white cell count improv ed 30 K to 13.8 today, platelet count is low likely from recent surgery and blee ding, hemoglobin drifted down below 7 today 6.6, primary team ordered 1 unit of PRBC, check H&H posttransfusion, add iron panel to lab drawn prior to transfusion CAD status post CABG 2015 Diastolic cardiomyopathy Continue low dose asa,carvedilol 6.25 mgbid,rosuvastatin 40 mgand zetia, patient received a unit of blood transfusion, BP and renal function being stable will resume BRIDGE MANAGER Aldactone Diabetes mellitus type 2 uncontrolled based on admit hemoglobin A1c 8.1%, associ ated with diabetic neuropathy and CKD stage III, blood glucose still not at goal , increase Lantus 15 units and prandial insulin as part 6 units [address] arting 05/27, continue sliding scale insulin CKD stage III,serum creatinine is at baseline, avoid NSAIDs or studies with co ntrast Asthma, no bronchospasms, continue BRIDGE MANAGER Combivent hypothyroidism, continue levoth yroxine 88 mcg daily Obesity class II with a BMI 37.6,patient reported she is already working on we ight loss by restricting calories Gout,continue colchicine Mood disorder, depression,continue Zoloft milligrams daily Discussed with patient and her daughteron 05/24 to get a non urgent referral fo r OP DEXA scan and polysomnography after dc DVT prophylaxis: Lovenox Diet: Diabetic diet Internal medicine consult pager # [phone] Subjective Tanja Deal is a 71 y.o. female admitted for left hip periprosthetic frac ture. Patient is seen and examined bedside today reports her pain is better man aged, she is receiving IV iron infusion today, offers no new complaints Medications Scheduled Meds:allopurinoL (ZYLOPRIM) tablet 300 mg, 300 mg, Oral, QDAY aspirin EC tablet 81 mg, 81 mg, Oral, QDAY carvediloL (COREG) tablet 6.25 mg, 6.25 mg, Oral, BID cholecalciferol (VITAMIN D-3) tablet 5,000 Units, 5,000 Units, Oral, QDAY enoxaparin (LOVENOX) syringe 30 mg, 30 mg, Subcutaneous, BID ezetimibe (ZETIA) tablet 10 mg, 10 mg, Oral, QDAY gabapentin (NEURONTIN) capsule 100 mg, 100 mg, Oral, BID insulin aspart (U-100) (NOVOLOG FLEXPEN U-100 INSULIN) injection PEN 0-12 Units, 0-12 Units, Subcutaneous, 5 X Daily insulin aspart (U-100) (NOVOLOG FLEXPEN U-100 INSULIN) injection PEN 4 Units, 4 Units, Subcutaneous, TID w/ meals insulin glargine (LANTUS SOLOSTAR U-100 INSULIN) injection PEN 12 Units, 12 Unit s, Subcutaneous, QHS(22) levothyroxine (SYNTHROID) tablet 88 mcg, 88 mcg, Oral, QDAY melatonin (MELATIN) tablet 3 mg, 3 mg, Oral, QHS milk of magnesia (CONC) oral suspension 10 mL, 10 mL, Oral, QDAY pantoprazole DR (PROTONIX) tablet 40 mg, 40 mg, Oral, QDAY(21) polyethylene glycol 3350 (MIRALAX) packet 17 g, 1 packet, Oral, BID rosuvastatin (CRESTOR) tablet 40 mg, 40 mg, Oral, QDAY senna/docusate (SENOKOT-S) tablet 2 tablet, 2 tablet, Oral, BID sertraline (ZOLOFT) tablet 100 mg, 100 mg, Oral, QDAY Continuous Infusions: PRN and Respiratory Meds:albuterol 0.083% Q4H PRN, ALPRAZolam BID PRN, colchicin e QDAY PRN, HYDROcodone/acetaminophen Q4H PRN, ondansetron (ZOFRAN) IV Q6H PRN Objective: Vital Signs: Last Filed Vital Signs: 24 Mack r Range BP: 114/40 (05/27 1257) Temp: 36.7 C (98.1 F) (05/27 1257) Pulse: 75 (05/27 1300) Respirations: 16 PER MINUTE (05/27 1257) SpO2: 96 % (05/27 1300) BP: (102-117)/(33-59) Temp: [36.7 C (98.1 F)-37.1 C (98.7 F)] Pulse: [71-79] Respirations: [14 PER MINUTE-18 PER MINUTE] SpO2: [92 %-98 %] Intensity Pain Scale (Self Report): 0 (05/27/21 0905) PAINAD Total Score: 0 (05/26/21 2200) Vitals: 05/23/21 1847 Weight: 90.3 kg (199 lb) Intake/Output Summary: (Last 24 hours) Intake/Output Summary (Last 24 hours) at 05/27/2021 1538 Last data filed at 05/27/2021 1340 Gross per 24 hour Intake 943.25 ml Output 1081 ml Net -137.75 ml Stool Occurrence: 0 Physical Exam General appearance: cooperative and no distress Respiratory: clear to auscultation bilaterally, no wheezing or rales Cardiovascular: regular rate and rhythm, S1, S2 normal, no murmur or gallop GI: Abdomen: soft, non distended, non-tender, bowel sounds are present Extremities: moves all limbs, edema over incision site on left upper thigh later al aspect, Hemovac is in situ Genitourinary: no bladder distension Skin: dry, no rashes Neurologic: Alert, awake and oriented X 4, normal speech, normal strength and to ne Psych: normal mood, affect and insight Lab Review 24-hour labs: Results for orders placed or performed during the hospital encounter of 05/23/21 (from the past 24 hour(s)) POC GLUCOSE Collection Time: 05/26/21 5:31 PM Result Value Ref Range Glucose, POC 307 (H) 70 - 100 MG/DL POC GLUCOSE Collection Time: 05/26/21 9:25 PM Result Value Ref Range Glucose, POC 227 (H) 70 - 100 MG/DL POC GLUCOSE Collection Time: 05/27/21 2:21 AM Result Value Ref Range Glucose, POC 287 (H) 70 - 100 MG/DL CBC Collection Time: 05/27/21 4:17 AM Result Value Ref Range White Blood Cells 13.8 (H) 4.5 - 11.0 K/UL RBC 2.08 (L) 4.0 - 5.0 M/UL Hemoglobin 6.6 (L) 12.0 - 15.0 GM/DL Hematocrit 20.1 (L) 36 - 45 % MCV 96.5 80 - 100 FL MCH 31.8 26 - 34 PG MCHC 32.9 32.0 - 36.0 G/DL RDW 17.9 (H) 11 - 15 % Platelet Count 93 (L) 150 - 400 K/UL MPV 9.4 7 - 11 FL COMPREHENSIVE METABOLIC PANEL Collection Time: 05/27/21 4:17 AM Result Value Ref Range Sodium 135 (L) 137 - 147 MMOL/L Potassium 4.2 3.5 - 5.1 MMOL/L Chloride 102 98 - 110 MMOL/L Glucose 245 (H) 70 - 100 MG/DL Blood Urea Nitrogen 25 7 - 25 MG/DL Creatinine 1.28 (H) 0.4 - 1.00 MG/DL Calcium 7.9 (L) 8.5 - 10.6 MG/DL Total Protein 5.0 (L) 6.0 - 8.0 G/DL Total Bilirubin 0.4 0.3 - 1.2 MG/DL Albumin 2.9 (L) 3.5 - 5.0 G/DL Alk Phosphatase 47 25 - 110 U/L AST (SGOT) 24 7 - 40 U/L CO2 29 21 - 30 MMOL/L ALT (SGPT) 9 7 - 56 U/L Anion Gap 4 3 - 12 eGFR Non 41 (L) >60 mL/min eGFR 50 (L) >60 mL/min MAGNESIUM Collection Time: 05/27/21 4:17 AM Result Value Ref Range Magnesium 1.9 1.6 - 2.6 mg/dL PHOSPHORUS Collection Time: 05/27/21 4:17 AM Result Value Ref Range Phosphorus 2.4 2.0 - 4.5 MG/DL POC GLUCOSE Collection Time: 05/27/21 8:29 AM Result Value Ref Range Glucose, POC 201 (H) 70 - 100 MG/DL POC GLUCOSE Collection Time: 05/27/21 12:33 PM Result Value Ref Range Glucose, POC 261 (H) 70 - 100 MG/DL CBC Collection Time: 05/27/21 2:25 PM Result Value Ref Range White Blood Cells 17.1 (H) 4.5 - 11.0 K/UL RBC 2.35 (L) 4.0 - 5.0 M/UL Hemoglobin 7.4 (L) 12.0 - 15.0 GM/DL Hematocrit 22.1 (L) 36 - 45 % MCV 94.2 80 - 100 FL MCH 31.6 26 - 34 PG MCHC 33.6 32.0 - 36.0 G/DL RDW 19.2 (H) 11 - 15 % Platelet Count 97 (L) 150 - 400 K/UL MPV 9.2 7 - 11 FL Point of Care Testing (Last 24 hours) Glucose: (!) 245 (05/27/21 7365) POC Glucose (Download): (!) 261 (05/27/21 1865) Radiology and other Diagnostics Review: No pertinent radiology. Sebastián Marley MD Pager: # [phone] * Cassie Steele, PT - 05/27/2021 12:41 PM CDT PHYSICAL THERAPY PROGRESS NOTE Name: Tanja Wang "Freda" Say : 1950 Age: 71 y.o. Admission Date: 05/23/2021 LOS: 4 days Mobility Patient Turn/Position: Weight shifted (Bed) Progressive Mobility Level: Active transfer to chair Level of Assistance: Assist X2 Assistive Device: Walker Time Tolerated: 31-60 minutes Activity Limited By: Pain;Weakness;Dizziness Subjective Significant hospital events: 71 y.o. female with past medical history of hyperte nsion, ischemic cardiomyopathy status post CABG, L AGUSTIN 03/2021, admitted due to fall up curbstep, 05/25 for ORIF L periprosthetic femur fracture. Mental / Cognitive Status: Alert;Oriented Persons Present: Daughter;Nursing Staff;RehabTechnician Pain: Patient complains of pain;Patient does not rate pain;During activity Pain Location: Left;Leg Pain Description: Aching L LE Precautions: LLE Toe Touch Weight Bearing Ambulation Assist: Independent Mobility in Community with Device Patient Owned Equipment: Single Point Cane Home Situation: Lives Alone Type of Home: Apartment Entry Stairs: No Stairs In-Home Stairs: No Stairs Comments: Patient lives alone in apartment. Able to have assist from friends/fam renetta as needed. Walk in shower with bench, grab bars in shower and around toilet. Reports this is the only fall, tripping stepping up curbstep. Uses cane at base line and was independent/driving. Bed Mobility/Transfer Bed Mobility: Supine to Sit: Moderate Assist;of 1st Person;Minimal Assist;of 2nd Person;Assist with Trunk;Assist with L LE Bed Mobility: Sit to Supine: Moderate Assist;x2 People;Assist with Trunk;Assist with B LE Transfer Type: Sit to/from Stand Transfer: Assistance Level: From;Bed;To;Commode;Moderate Assist;x2 People Transfer: Assistive Device: Roller Walker Transfers: Type Of Assistance: Verbal Cues;For Balance;For Strength Deficit;For Safety Considerations Other Transfer Type: Sit to/from Stand Other Transfer: Assistance Level: From;Commode;To;Bed;Maximal Assist;x2 People Other Transfer: Assistive Device: Roller Walker Other Transfer: Type Of Assistance: Verbal Cues;For Balance;For Strength Deficit ;For Safety Considerations End Of Activity Status: In Bed;Nursing Notified;Instructed Patient to Request As sist with Mobility;Instructed Patient to Use Call Light Comments: pt attempting to sit prior to fully reaching bed, increased difficulty transferring from lower surfaces and when stepping and transferring toward L si de Balance Sitting Balance: Static Sitting Balance;Dynamic Sitting Balance;2 UE Support;Sta ndby Assist Standing Balance: Static Standing Balance;Dynamic Standing Balance;2 UE support; Maximal Assist;x2 People Gait Comments: pt able to take 2-3 steps with min-modA to the right but requires maxA x2 when stepping to the left with stand pivot transfers this session each time with use of RW Education Persons Educated: Patient Patient Barriers To Learning: Anxiety;Pain Interventions: Repetition of Instructions Teaching Methods: Verbal Instruction;Demonstration Patient Response: More Instruction Required Topics: Plan/Goals of PT Interventions;Use of Assistive Device/Orthosis;Mobility Progression;Precautions;Safety Awareness;Up with Assist Only;Recommend Continued Therapy Assessment/Progress Impaired Mobility Due To: Decreased Strength;Pain;Weight Bearing Restrictions;Im paired Balance;Safety Concerns;Decreased Activity Tolerance;Post Surgical Change s Assessment/Progress: Should Improve w/ Continued PT AM-PAC 6 Clicks Basic Mobility Inpatient Turning from your back to your side while in a flat bed without using bed rails: A Little Moving from lying on your back to sitting on the side of a flatbed without using bedrails : A Little Moving to and from a bed to a chair (including a wheelchair): A Lot Standing up from a chair using your arms (e.g. wheelchair, or bedside chair): A Lot To walk in hospital room: Total Climbing 3-5 steps with a railing: Total Raw Score: 12 Standardized (T-scale) Score: 32.23 Basic Mobility CMS 0-100%: 61.94 CMS G Code Modifier for Basic Mobility: CL Goals Goal Formulation: With Patient Time For Goal Achievement: 7 days Patient Will Go Supine To/From Sit: Independently Patient Will Transfer Bed/Chair: Independently Patient Will Ambulate: 101-150 Feet, w/ Walker, w/ Stand By Assist Patient Will Go Up / Down Stairs: 3-5 Stairs, w/ Stand By Assist Plan Treatment Interventions: Mobility Training;Strengthening;Balance Activities;Endu lenin Training Plan Frequency: 5 Days per Week PT Plan for Next Visit: increase ind with bed mob, transfers, gait PT Discharge Recommendations Recommendation: Inpatient setting;Recommend rehab medicine consult Therapist: Cassie Steele PT, DPT, MHAM Date: 05/27/2021 * Alma Rosa Jaramillo PA-C - 05/27/2021 12:09 PM CDT Ortho DC Recs: -Will pull HV drain prior to patient discharging, likely 05/28. -Recommend ppx Lovenox while inpatient, ASA 81mg PO bid x 4 weeks upon discharge . -Leave dressings in place until follow up appointment unless saturated then ok t o replace with 4x4 gauze and tegaderm/hypafix. If any new drainage seen or cris rns for infection, please contact Dr. Wu's office @ [phone]. -Toe touch weightbearing left lower extremity. -Do not get incisions wet. Keep dressings dry. Sponge bathe until follow up appo intment. -Follow up with Dr. Wu 2-3 weeks post operative by calling [phone] to [facility]. Should you have a question or concern regarding your orthopedic care or injuries please call our nurse's line at [phone]. Our clinic is located on the 2nd floor of the [facility] on [facility], across from [facility]. The clinic address is [address] [place] [address] Alma Rosa Jaramillo PA-C Orthopedic Surgery Physician Levi Maker P. [id number]/Voalte * Adriana Granger APRN-NP - 05/27/2021 6:47 AM CDT Trauma Progress Note Today's Date: 05/27/2021 Hospital Day: Hospital Day: 5 HPI: Tanja Deal is a 71 y.o. female with a PMH of hypothyroidism, HTN, HLD, C AD, ischemic cardiology s/p CABG, T2DM, CKD, prior L hip fracture s/p arthroplas ty who presents as a trauma transfer after a fall. Pt states that she was steppi ng over a curb when she lost her balance and tried to catch herself on a nearby car. She slid down the car and landed on her right hip. She did not hit her head and denies LOC. She is only complaining of pain in her LEFT hip. Pt found to lakhani ve a left periprosthetic femur fx. Ortho was consulted and pt went to the OR on 05/25. Pt overall has a long surgical history. She had a prior fracture of her left hip requiring pinning in 09/2016. She additionally had a prior L knee arthroplasty in 08/2019. She had a 3-vessel CABG in 03/2016. Her only abdominal surgery is a prior laproscopic cholecystectomy. Pt had a prior stroke immediately following her open heart surgery in 2015. She is not taking any blood thinners. In regards to her diabetes, she has trajenta, and xigduo, as well as 10 units of long-acting basal insulin a day. Her last HA1 c in the system was 12.4 on 02/02/2021. 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 09/15/2020 Degenerative arthritis of left knee 08/28/2019 Elevated Lp(a) 07/09/2019 Ischemic cardiomyopathy 03/01/2018 S/P CABG (coronary artery bypass graft) 07/24/2017 CAD (coronary artery disease) 07/27/2016 ABLA (acute blood loss anemia) 03/26/2016 CVA (cerebral vascular accident) ([facility]) 03/26/2016 Class 2 severe obesity due to excess calories with serious comorbidity and b ashli mass index (BMI) of 37.0 to 37.9 in adult ([facility]) 03/17/2016 Anxiety 03/17/2016 CKD (chronic kidney disease) stage 3, GFR 30-59 ml/min ([facility]) 03/17/2016 Dyslipidemia associated with type 2 diabetes mellitus ([facility]) 03/17/2016 Type II diabetes mellitus ([facility]) 03/16/2016 Essential hypertension 03/16/2016 Hypothyroid 03/16/2016 Hyperlipidemia 03/16/2016 Neuro Acute pain due to trauma --Vanleer 1-2 tabs Q4H PRN --Gabapentin 100mg po BID Sleep disturbance/Anxiety/Depression --melatonin 3mg QHS --BRIDGE MANAGER Xanax and Zoloft CV HDS. See VS summary below Continue to monitor HTN/HLD --BRIDGE MANAGER Coreg, Rosuvastatin, ASA, Zetia Pulm Stable on RA. SpO2 94 Pulmonary toilet, encourage IS COPD --Albuterol Nebs GI/FEN Regular diet Bowel regimen SLIV Zofran prn nausea Monitor and replace lytes prn GERD --Protonix Voiding w/o difficulty UOP good CKD --Cr 1.28 (CKD w/ baseline Cr 1.2-1.5) Heme/ID Acute blood loss anemia -- Hgb 6.6 (8.3). Hgb low, but no clinical signs of overt bleeding. Continue to trend serially. Optimize fluid balance. Monitor stools for signs of occult GI bl eeding. --1U of pRBC 05/27 --Asymptomatic other than weakness at this time Leukocytosis --WBC 13.8 (30.2) and falling- likely reactive --Continue to monitor for fever or signs of illness Endo DMII --SSI Regular Insulin 5xday Hypothyroid --BRIDGE MANAGER Levothyroxine MS PT/OT Gout --BRIDGE MANAGER Allopurinol and colchicine Left Periprosthetic Hip fracture -- TTWB LLE --HV in place --OR with Ortho on 05/25 --recommend lovenox while in house, followed by asa 81 mg BID x 4 weeks --Upon discharge, please have the patient f/u with Dr. Wu from [facility] in 2 weeks by calling [phone] PPx SCDs, Lovenox Disp - PT/OT/paoin control - anticipate placement- rehab consult placed SW/CM following for discharge planning needs. Patient discussed with Dr. Bennett during rounds. Subjective Overnight Events: No acute overnight events. Pt lying in bed and she is a bit ti red. Discussed the plan of care today with pt and the drop in her HGB. Pt states she does feel a bit weak today. She states she also feels a bit foggy today as well. Discussed this is likely due to the low hgb. Pt states that her leg feels a lot less tight today. Pain is well controlled. Denies any needs at this time. Blood consent completed. Denies CP, SOA, abd pain, N/V/D, headache or dizziness. Objective: Physical Exam: General: in no apparent distress, well developed and well nourished, alert, orie nted times 3, afebrile, anicteric and cooperative Head/Ears/Eyes/Nose/Throat: normal atraumatic, no neck masses, no jvd Respiratory: Clear Auscultation bilaterally, even and unlabored respirations Cardiovascular: Regular rate and rhythm, no murmurs Abdomen: No Distention and No Tenderness, normal active bowel sounds Extremities: Warm and well perfused and No edema, incision to L hip with dressin g in place C/D/I. Edema to thigh noted and much softer. 2+ distal pulses, warm t o touch and sensation intact. HV in place with bloody drainage Neuro: alert, oriented x3, speech normal in contrext and clarity, memory intact grossly, motor strength: full proximally and distally, no involuntary movements - tremors, sensation: intact to vibration, pain, and light touch and [place] 15 Derm: Warm, dry, anicteric Musc: Normal ROM and Normal strength and tone except for LLE due to injury Vital Signs: (24 hours) BP: (102-126)/(33-59) Temp: [36.7 C (98.1 F)-37.3 C (99.2 F)] Pulse: [71-79] Respirations: [14 PER MINUTE-18 PER MINUTE] SpO2: [92 %-98 %] Intake/Output Summary: Intake/Output Summary (Last 24 hours) at 05/27/2021 1105 Last data filed at 05/27/2021 0818 Gross per 24 hour Intake 749 ml Output 1109 ml Net -360 ml Date of Last Stool: BRIDGE MANAGER- increased Medications: Scheduled Meds:allopurinoL (ZYLOPRIM) tablet 300 mg, 300 mg, Oral, QDAY aspirin EC tablet 81 mg, 81 mg, Oral, QDAY carvediloL (COREG) tablet 6.25 mg, 6.25 mg, Oral, BID cholecalciferol (VITAMIN D-3) tablet 5,000 Units, 5,000 Units, Oral, QDAY enoxaparin (LOVENOX) syringe 30 mg, 30 mg, Subcutaneous, BID ezetimibe (ZETIA) tablet 10 mg, 10 mg, Oral, QDAY gabapentin (NEURONTIN) capsule 100 mg, 100 mg, Oral, BID insulin aspart (U-100) (NOVOLOG FLEXPEN U-100 INSULIN) injection PEN 0-12 Units, 0-12 Units, Subcutaneous, 5 X Daily insulin aspart (U-100) (NOVOLOG FLEXPEN U-100 INSULIN) injection PEN 4 Units, 4 Units, Subcutaneous, TID w/ meals insulin glargine (LANTUS SOLOSTAR U-100 INSULIN) injection PEN 12 Units, 12 Unit s, Subcutaneous, QHS(22) levothyroxine (SYNTHROID) tablet 88 mcg, 88 mcg, Oral, QDAY melatonin (MELATIN) tablet 3 mg, 3 mg, Oral, QHS milk of magnesia (CONC) oral suspension 10 mL, 10 mL, Oral, QDAY pantoprazole DR (PROTONIX) tablet 40 mg, 40 mg, Oral, QDAY(21) polyethylene glycol 3350 (MIRALAX) packet 17 g, 1 packet, Oral, BID rosuvastatin (CRESTOR) tablet 40 mg, 40 mg, Oral, QDAY senna/docusate (SENOKOT-S) tablet 2 tablet, 2 tablet, Oral, BID sertraline (ZOLOFT) tablet 100 mg, 100 mg, Oral, QDAY Continuous Infusions: PRN and Respiratory Meds:albuterol 0.083% Q4H PRN, ALPRAZolam BID PRN, colchicin e QDAY PRN, HYDROcodone/acetaminophen Q4H PRN, ondansetron (ZOFRAN) IV Q6H PRN Prophylaxis Review: Peptic Ulcer Disease: None: Not indicated VTE: Pharmacological prophylaxis; Enoxaparin and Mechanical prophylaxis; Sequent ial compression device Lines, Drains, and Airways: Lines, Drains, Airways and Wounds IV Peripheral IV 05/23/21 1908 Left Antecubital 20 G 3 days Peripheral IV 05/25/21 1056 Left Hand 20 G 2 days Drain Hemovac Drain 05/25/21 1318 Left;Upper Leg 1 day Wound Wounds 05/25/21 1101 Surgical incision Left;Upper Thigh 2 days Pertinent labs, medications, radiology, and diagnostic procedures reviewed inclu ding: active problem list, medication list, allergies, family history, social hi story, health maintenance, notes from last encounter, lab results, imaging Adriana Granger, DADA-GAME MANAGER [id number] Trauma Team Pager [phone] * Sebastián Marley MD - 05/26/2021 5:25 PM CDT General Progress Note Name: Tanja Deal Today's Date: 05/26/2021 Admission Date: 05/23/2021 LOS: 3 days Assessment/Plan: Principal Problem: Trauma Active Problems: Type II diabetes mellitus (HCC) Essential hypertension Hypothyroid Hyperlipidemia Class 2 severe obesity due to excess calories with serious comorbidity and bod y mass index (BMI) of 37.0 to 37.9 in adult (HCC) Anxiety CKD (chronic kidney disease) stage 3, GFR 30-59 ml/min (HCC) Dyslipidemia associated with type 2 diabetes mellitus (HCC) ABLA (acute blood loss anemia) CAD (coronary artery disease) S/P CABG (coronary artery bypass graft) Ischemic cardiomyopathy Degenerative arthritis of left knee Hip fracture (HCC) Thrombocytopenia (HCC) 71-year-old woman with past medical history of HTN, CAD s/p CABG 2015, CVA, CKD stage III, obesity left hip replacement and left TKR 03/2021 presented as a traum a transfer after a ground-level fall with a left periprosthetic femur fracture. Left hip periprosthetic fracturesecondary to fall Status post ORIF 05/25/2021, after procedure she received Hemovac Patient reports her pain is adequately controlled after receiving nerve block la st night and with the current oral pain regimen, continue Lovenox for VTE prophy laxis, rest of care plan per Ortho CAD status post CABG 2015 Diastolic cardiomyopathy No active chest pain, appears stable, blood pressure is low marginal today Continue low dose asa, carvedilol 6.25 mg bid, rosuvastatin 40 mg and zetia Continue to hold Aldactone as she appears euvolemic and BP being low marginal Diabetes mellitus type 2 with neuropathy and CKD stage III, admit hemoglobin A1c 8.1% Hold OHA, blood sugars are suboptimally controlled in last 24 hours likely, mati l increase Lantus 12 units starting tonight, and prandial insulin aspart 4 units 3 times daily, continue sliding scale insulin will make further insulin adjustm ents based on blood sugars in next 24 hours CKD stage III,serum creatinine is at baseline, avoid NSAIDs or studies with co ntrast Asthma, no bronchospasms, continue BRIDGE MANAGER Combivent hypothyroidism, continue levoth yroxine 88 mcg daily Obesity class II with a BMI 37.6,patient reported she is already working on we ight loss by restricting calories Gout,continue colchicine Mood disorder, depression,continue Zoloft milligrams daily Acute blood loss anemia secondary to fracture and surgery Anemia and thrombocytopenia likely due to known history of CLL, patient is curre ntly following with her oncologist in [place], her white cell count is up today 3 0 K, however she has no overt signs of infection likely a stress response, ICS t o prevent atelectasis Discussed with patient and her daughter on 05/24 to get a non urgent referral for OP DEXA scan and polysomnography after dc DVT prophylaxis: Lovenox Diet: Diabetic diet Subjective Tanja Kathleen Deal is a 71 y.o. female. Patient is seen and examined at bedside , reported having pain prior to my visit, no new concerns Medications Scheduled Meds:allopurinoL (ZYLOPRIM) tablet 300 mg, 300 mg, Oral, QDAY aspirin EC tablet 81 mg, 81 mg, Oral, QDAY carvediloL (COREG) tablet 6.25 mg, 6.25 mg, Oral, BID cholecalciferol (VITAMIN D-3) tablet 5,000 Units, 5,000 Units, Oral, QDAY enoxaparin (LOVENOX) syringe 30 mg, 30 mg, Subcutaneous, BID ezetimibe (ZETIA) tablet 10 mg, 10 mg, Oral, QDAY gabapentin (NEURONTIN) capsule 100 mg, 100 mg, Oral, BID insulin aspart (U-100) (NOVOLOG FLEXPEN U-100 INSULIN) injection PEN 0-12 Units, 0-12 Units, Subcutaneous, 5 X Daily insulin glargine (LANTUS SOLOSTAR U-100 INSULIN) injection PEN 9 Units, 9 Units, Subcutaneous, QHS(22) levothyroxine (SYNTHROID) tablet 88 mcg, 88 mcg, Oral, QDAY melatonin (MELATIN) tablet 3 mg, 3 mg, Oral, QHS pantoprazole DR (PROTONIX) tablet 40 mg, 40 mg, Oral, QDAY(21) polyethylene glycol 3350 (MIRALAX) packet 17 g, 1 packet, Oral, BID rosuvastatin (CRESTOR) tablet 40 mg, 40 mg, Oral, QDAY senna/docusate (SENOKOT-S) tablet 2 tablet, 2 tablet, Oral, BID sertraline (ZOLOFT) tablet 100 mg, 100 mg, Oral, QDAY Continuous Infusions: sodium chloride 0.9 % infusion 1,000 mL (05/25/21 0931) PRN and Respiratory Meds:albuterol 0.083% Q4H PRN, ALPRAZolam BID PRN, colchicin e QDAY PRN, HYDROcodone/acetaminophen Q4H PRN, ondansetron (ZOFRAN) IV Q6H PRN Objective: Vital Signs: Last Filed Vital Signs: 24 Mack r Range BP: 126/42 (05/26 1327) Temp: 37.3 C (99.2 F) (05/26 1327) Pulse: 77 (05/26 1327) Respirations: 18 PER MINUTE (05/26 1327) SpO2: 93 % (05/26 1327) BP: (98-129)/(41-49) Temp: [36.3 C (97.3 F)-37.3 C (99.2 F)] Pulse: [68-77] Respirations: [16 PER MINUTE-18 PER MINUTE] SpO2: [93 %-100 %] Intensity Pain Scale (Self Report): 2 (05/26/21 1200) Vitals: 05/23/21 1847 Weight: 90.3 kg (199 lb) Intake/Output Summary: (Last 24 hours) Intake/Output Summary (Last 24 hours) at 05/26/2021 1725 Last data filed at 05/26/2021 1529 Gross per 24 hour Intake 998 ml Output 1947.5 ml Net -949.5 ml Stool Occurrence: 0 Physical Exam General appearance: cooperative and no distress Respiratory: clear to auscultation bilaterally, no wheezing or rales Cardiovascular: regular rate and rhythm, S1, S2 normal, no murmur or gallop GI: Abdomen: soft, non distended, non-tender, bowel sounds are present Extremities: moves all limbs, edema of left high incision site which is connecte d to hemovac Genitourinary: no bladder distension Skin: dry, no rashes Neurologic: Alert, awake and oriented X 4, normal speech, normal strength and to ne Psych: normal mood, affect and insight Lab Review 24-hour labs: Results for orders placed or performed during the hospital encounter of 05/23/21 (from the past 24 hour(s)) POC GLUCOSE Collection Time: 05/25/21 5:45 PM Result Value Ref Range Glucose, POC 226 (H) 70 - 100 MG/DL POC GLUCOSE Collection Time: 05/25/21 9:07 PM Result Value Ref Range Glucose, POC 257 (H) 70 - 100 MG/DL POC GLUCOSE Collection Time: 05/25/21 10:37 PM Result Value Ref Range Glucose, POC 252 (H) 70 - 100 MG/DL POC GLUCOSE Collection Time: 05/26/21 3:27 AM Result Value Ref Range Glucose, POC 209 (H) 70 - 100 MG/DL CBC Collection Time: 05/26/21 5:58 AM Result Value Ref Range White Blood Cells 30.2 (H) 4.5 - 11.0 K/UL RBC 2.61 (L) 4.0 - 5.0 M/UL Hemoglobin 8.3 (L) 12.0 - 15.0 GM/DL Hematocrit 25.4 (L) 36 - 45 % MCV 97.0 80 - 100 FL MCH 31.9 26 - 34 PG MCHC 32.8 32.0 - 36.0 G/DL RDW 17.4 (H) 11 - 15 % Platelet Count 105 (L) 150 - 400 K/UL MPV 9.7 7 - 11 FL COMPREHENSIVE METABOLIC PANEL Collection Time: 05/26/21 5:58 AM Result Value Ref Range Sodium 136 (L) 137 - 147 MMOL/L Potassium 4.9 3.5 - 5.1 MMOL/L Chloride 102 98 - 110 MMOL/L Glucose 182 (H) 70 - 100 MG/DL Blood Urea Nitrogen 25 7 - 25 MG/DL Creatinine 1.23 (H) 0.4 - 1.00 MG/DL Calcium 7.9 (L) 8.5 - 10.6 MG/DL Total Protein 5.2 (L) 6.0 - 8.0 G/DL Total Bilirubin 0.4 0.3 - 1.2 MG/DL Albumin 3.1 (L) 3.5 - 5.0 G/DL Alk Phosphatase 45 25 - 110 U/L AST (SGOT) 26 7 - 40 U/L CO2 25 21 - 30 MMOL/L ALT (SGPT) 11 7 - 56 U/L Anion Gap 9 3 - 12 eGFR Non 43 (L) >60 mL/min eGFR 52 (L) >60 mL/min MAGNESIUM Collection Time: 05/26/21 5:58 AM Result Value Ref Range Magnesium 1.9 1.6 - 2.6 mg/dL PHOSPHORUS Collection Time: 05/26/21 5:58 AM Result Value Ref Range Phosphorus 4.0 2.0 - 4.5 MG/DL POC GLUCOSE Collection Time: 05/26/21 7:27 AM Result Value Ref Range Glucose, POC 173 (H) 70 - 100 MG/DL POC GLUCOSE Collection Time: 05/26/21 11:59 AM Result Value Ref Range Glucose, POC 262 (H) 70 - 100 MG/DL POC GLUCOSE Collection Time: 05/26/21 5:31 PM Result Value Ref Range Glucose, POC 307 (H) 70 - 100 MG/DL Point of Care Testing (Last 24 hours) Glucose: (!) 182 (05/26/21 0558) POC Glucose (Download): (!) 262 (05/26/21 1554) Radiology and other Diagnostics Review: No pertinent radiology. Sebastián Marley MD Pager: # [phone] * Cassie Steele, PT - 05/26/2021 3:04 PM CDT PHYSICAL THERAPY ASSESSMENT Name: Tanja Deal (Dee) : 1950 Age: 71 y.o. Admission Date: 05/23/2021 LOS: 3 days Mobility Patient Turn/Position: Weight shifted (Bed) Progressive Mobility Level: Active transfer to chair Level of Assistance: Assist X2 Assistive Device: Walker Time Tolerated: 11-30 minutes Activity Limited By: Pain;Weakness;Dizziness (anxiety) Subjective Significant hospital events: 71 y.o. female with past medical history of hyperte nsion, ischemic cardiomyopathy status post CABG, L AGUSTIN 03/2021, admitted due to fall up curbstep, 05/25 for ORIF L periprosthetic femur fracture. Mental / Cognitive Status: Alert;Oriented Persons Present: Daughter;Nursing Staff Pain: Patient complains of pain;Before activity;12/16 Pain Location: Left;Leg Pain Description: Aching;Sharp L LE Precautions: LLE Toe Touch Weight Bearing Ambulation Assist: Independent Mobility in Community with Device Patient Owned Equipment: Single Point Cane Home Situation: Lives Alone Type of Home: Apartment Entry Stairs: No Stairs In-Home Stairs: No Stairs Comments: Patient lives alone in apartment. Able to have assist from friends/fam renetta as needed. Walk in shower with bench, grab bars in shower and around toilet. Reports this is the only fall, tripping stepping up curbstep. Uses cane at base line and was independent/driving. ROM UE ROM WFL: Yes LE ROM WFL: (L ankle PF contracture and limited L knee extension by 5 deg) Strength Overall Strength: Generalized Weakness (parvin LLE) Bed Mobility/Transfer Bed Mobility: Supine to Sit: Minimal Assist Bed Mobility: Sit to Supine: Moderate Assist Transfer Type: Sit to/from Stand Transfer: Assistance Level: From;Bed;To;Commode;Maximal Assist Transfer: Assistive Device: Roller Walker Transfers: Type Of Assistance: Verbal Cues;For Balance;For Strength Deficit;For Safety Considerations Other Transfer Type: Sit to/from Stand Other Transfer: Assistance Level: From;Commode;To;Bed;Maximal Assist;x2 People Other Transfer: Assistive Device: Roller Walker Other Transfer: Type Of Assistance: Verbal Cues;For Balance;For Strength Deficit ;For Safety Considerations End Of Activity Status: In Bed;Nursing Notified;Instructed Patient to Request As sist with Mobility;Instructed Patient to Use Call Light Comments: pt extremely anxious and demo'd difficulty breathing, RN immediatly no tified, O2sat 94% on RA, patient pale initially but color returned with cueing f or deep breathing, weezing breathing for approx 1/2 min with stand pivot transfe r and toileting. Balance Sitting Balance: Static Sitting Balance;Dynamic Sitting Balance;2 UE Support;Min imal Assist Standing Balance: Static Standing Balance;Dynamic Standing Balance;2 UE support; Maximal Assist;x2 People Education Persons Educated: Patient Patient Barriers To Learning: Anxiety;Pain Interventions: Repetition of Instructions Teaching Methods: Verbal Instruction;Demonstration Patient Response: More Instruction Required Topics: Plan/Goals of PT Interventions;Use of Assistive Device/Orthosis;Mobility Progression;Precautions;Safety Awareness;Up with Assist Only;Recommend Continued Therapy Assessment/Progress Impaired Mobility Due To: Decreased Strength;Pain;Weight Bearing Restrictions;Im paired Balance;Safety Concerns;Decreased Activity Tolerance;Post Surgical Change s Assessment/Progress: Should Improve w/ Continued PT AM-PAC 6 Clicks Basic Mobility Inpatient Turning from your back to your side while in a flat bed without using bed rails: A Little Moving from lying on your back to sitting on the side of a flatbed without using bedrails : A Little Moving to and from a bed to a chair (including a wheelchair): A Lot Standing up from a chair using your arms (e.g. wheelchair, or bedside chair): A Lot To walk in hospital room: Total Climbing 3-5 steps with a railing: Total Raw Score: 12 Standardized (T-scale) Score: 32.23 Basic Mobility CMS 0-100%: 61.94 CMS G Code Modifier for Basic Mobility: CL Goals Goal Formulation: With Patient Time For Goal Achievement: 7 days Patient Will Go Supine To/From Sit: Independently Patient Will Transfer Bed/Chair: Independently Patient Will Ambulate: 101-150 Feet, w/ Walker, w/ Stand By Assist Patient Will Go Up / Down Stairs: 3-5 Stairs, w/ Stand By Assist Plan Treatment Interventions: Mobility Training;Strengthening;Balance Activities;Endu lenin Training Plan Frequency: 5 Days per Week PT Plan for Next Visit: increase ind with bed mob, transfers, gait PT Discharge Recommendations Recommendation: Inpatient setting;Recommend rehab medicine consult Therapist Cassie Stelee PT, DPT, MHAM Date 05/26/2021 * Eduin Barron MD - 05/26/2021 1:41 PM CDT Orthopedic Ortho TraumaProgress Note A/P: Tanja Deal is a 71F w/ L periprosthetic proximal femur fx s/p ORIF 05/25 - PT/OT - WB status: TTWB LLE - Please record HV output - Abx: Ancef x 24 hrs post op (ordered) - Pain control per primary team - Ortho to maintain dressings - Call ortho with questions - DVT prophylaxis/anticoagulation per primary team; recommend lovenox while in h ouse, followed by asa 81 mg BID x 4 weeks - May resume Diet - Disposition: Pt will not require foreseeable future Orthopedic surgical operat ben intervention during this admission Upon discharge, please have the patient [facility] by calling [phone] Eduin Barron MD [id number]: No acute events. Pain controlled. Tolerating diet. Denies fevers, chills, n ausea, vomiting. O: Blood pressure 126/42, pulse 77, temperature 37.3 C (99.2 F), height 154.9 c m (61"), weight 90.3 kg (199 lb), SpO2 93 %. Body mass index is 37.6 kg/m. Obesity (30 to <40) Exam: GEN: Alert. NAD CV: Normal rate, regular rhythm PULM: Non-labored ABD: Soft, non-distended Pressure Injury: No pressure injury EXTREM: Extremities: LLE: aquacel dressing over lateral thigh, hemovac drain in place holding suction , NVI distally, TA/GS, EHL/FHL intact. SILT in DP/SP/Tib/Kaela/Saph distribution s, DP/PT palpable, Cap refill < 2 sec, soft compartments. Dressings: Dressings clean, dry, and intact. Active Wounds Wounds 05/25/21 1101 Surgical incision Left;Upper Thigh (Active) 05/25/21 1101 Thigh Wound Type: Surgical incision Pressure Injury Stages: Pressure Injury Present On Inpatient Admission: Wound/Pressure Injury Orientation: Left;Upper Wound Location Comments: Wound Description (Comments): Wound Type:: Wound Dressing Status Intact 05/26/21 0936 Wound Dressing and / or Treatment Aquacel;Gauze;Xeroform gauze 05/26/21 0936 Wound Drainage Amount None 05/26/21 0936 Wound Base Assessment Dressing intact, base not assessed 05/26/21 0936 Surrounding Skin Assessment Intact 05/26/21 0936 Wound Site Closure Kourtney;Sutures 05/25/21 1415 Number of days: 1 Resulted Micro Last 72 Hrs No results found Output by Drain (mL) 05/24/21 0701 - 05/24/21 1900 05/24/21 1901 - 05/25/21 0700 05/25/21 0701 - 05/25/21 1900 05/25/21 1901 - 05/26/21 0700 05/26/21 0701 - 1341 Hemovac Drain 05/25/21 1318 Left;Upper Leg 63 36.5 13 Complete Blood Counts Recent Labs 05/23/21204405/24/21 0551 05/25/21 0440 05/26/21 0558 HGB 12.5 11.6* 10.9* 8.3* HCT 38.7 36.2 32.6* 25.4* WBC 19.5* 20.8* 20.4* 30.2* PLTCT 127* 121* 104* 105* Chemistry Panel Recent Labs 05/23/21204405/24/21 0551 05/25/21 0440 05/26/21 0558 NA 141 140 139 136* K 4.6 4.3 4.7 4.9 CL 106 104 103 102 CO2 25 28 28 25 BUN 23 27* 22 25 CR 1.23* 1.37* 1.38* 1.23* GLU 131* 170* 188* 182* MG 2.0 2.0 1.8 1.9 CA 8.9 9.1 8.6 7.9* PO4 4.0 4.9* 3.8 4.0 Coagulation Studies No results for input(s): PTT, INR in the last 72 hours. 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 Endoscopic harvesting of the left greater saphenous ve in. - Dr. Byrd (Hosp) CAD (coronary artery disease) (Hosp) ABLA (acute blood loss anemia) CVA (cerebral vascular accident) ([facility]) (Hosp) Class 2 severe obesity due to excess calories with serious comorbidi ty and body mass index (BMI) of 37.0 to 37.9 in adult ([facility]) (Hosp) Anxiety (Hosp) CKD (chronic kidney disease) stage 3, GFR 30-59 ml/min ([facility]) (Hosp) Dyslipidemia associated with type 2 diabetes mellitus ([facility]) (Hosp) Type II diabetes mellitus ([facility]) (Hosp) Essential hypertension (Hosp) Hypothyroid (Hosp) Hyperlipidemia * Destiney Calhoun, DADA-GAME MANAGER - 05/26/2021 12:57 PM CDT Orthopedic Ortho TraumaProgress Note A: Tanja Deal is a 71 y.o. female Tanja Deal is a 71F w/ L perip rosthetic proximal femur fx s/p ORIF 05/25 P: -WB Status: TTWB to LLE -Dressings: Keep your surgical dressings clean, dry, intact until follow up. Rep ort drainage, redness, fevers, or increased pain to our office. -Diet: per primary -Acute blood loss anemia: Monitor CBC's daily -PT/OT - Pain: per primary -DVT PPX: Lovenox While inpatient then ASA 81 mg PO BID x 1 month on d/c. DISPO: Continue inpatient. Anticipate HV discontinuation on 05/27 if output is ne gligible. Destiney Calhoun, BEAUTY SPECIALIST-GAME MANAGER [facility] [id number] S: No acute events. Pain controlled. Tolerating diet. O: Blood pressure 116/49, pulse 71, temperature 36.8 C (98.3 F), height 154.9 c m (61"), weight 90.3 kg (199 lb), SpO2 96 %. Body mass index is 37.6 kg/m. Obesity (30 to <40) Exam: GEN: Alert. NAD CV: Normal rate, regular rhythm PULM: Non-labored ABD: Soft, non-distended EXTREM: Extremities: left lower extremity compartments soft, wiggles toes , + ankle pf d f, SILT, distal cap refill < 2 sec, dressings CDI. Left thigh swollen but compressible, SILT throughout the extremity. Given post-op swelling sof rol and sofiya applied from toes to proximal thigh. Elevated LLE Dressings: Dressings clean, dry, and intact. Active Wounds Wounds 05/25/21 1101 Surgical incision Left;Upper Thigh (Active) 05/25/21 1101 Thigh Wound Type: Surgical incision Pressure Injury Stages: Pressure Injury Present On Inpatient Admission: Wound/Pressure Injury Orientation: Left;Upper Wound Location Comments: Wound Description (Comments): Wound Type:: Wound Dressing Status Intact 05/26/21 0936 Wound Dressing and / or Treatment Aquacel;Gauze;Xeroform gauze 05/26/21 0936 Wound Drainage Amount None 05/26/21 0936 Wound Base Assessment Dressing intact, base not assessed 05/26/21 0936 Surrounding Skin Assessment Intact 05/26/21 0936 Wound Site Closure Kourtney;Sutures 05/25/21 1415 Number of days: 1 Resulted Micro Last 72 Hrs No results found Output by Drain (mL) 05/24/21 0701 - 05/24/21 1900 05/24/21 190 - 05/25/21 0700 05/25/21 0701 - 05/25/21 1900 05/25/21 1901 - 05/26/21 0700 05/26/21 0701 - 1258 Hemovac Drain 05/25/21 1318 Left;Upper Leg 63 36.5 10 Complete Blood Counts Recent Labs 05/23/21204405/24/21 0551 05/25/21 0440 05/26/21 0558 HGB 12.5 11.6* 10.9* 8.3* HCT 38.7 36.2 32.6* 25.4* WBC 19.5* 20.8* 20.4* 30.2* PLTCT 127* 121* 104* 105* Chemistry Panel Recent Labs 05/23/21204405/24/21 0551 05/25/21 0440 05/26/21 0558 NA 141 140 139 136* K 4.6 4.3 4.7 4.9 CL 106 104 103 102 CO2 25 28 28 25 BUN 23 27* 22 25 CR 1.23* 1.37* 1.38* 1.23* GLU 131* 170* 188* 182* MG 2.0 2.0 1.8 1.9 CA 8.9 9.1 8.6 7.9* PO4 4.0 4.9* 3.8 4.0 Coagulation Studies No results for input(s): PTT, INR in the last 72 hours. 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 Endoscopic harvesting of the left greater saphenous ve in. - Dr. Byrd (Hosp) CAD (coronary artery disease) (Hosp) ABLA (acute blood loss anemia) CVA (cerebral vascular accident) ([facility]) (Hosp) Class 2 severe obesity due to excess calories with serious comorbidi ty and body mass index (BMI) of 37.0 to 37.9 in adult ([facility]) (Hosp) Anxiety (Hosp) CKD (chronic kidney disease) stage 3, GFR 30-59 ml/min ([facility]) (Hosp) Dyslipidemia associated with type 2 diabetes mellitus (HCC) (Hosp) Type II diabetes mellitus (HCC) (Hosp) Essential hypertension (Hosp) Hypothyroid (Hosp) Hyperlipidemia * Maggie Roth, RT - 05/26/2021 12:43 PM CDT RT Adult Assessment Note NAME:Tanja Deal :1950 AGE: 71 y.o. ADMISSION DATE: 05/23/2021 DAYS ADMITTED: LOS: 3 days RT Treatment Plan: Protocol Plan: Medications Albuterol: Nebulizer PRN Protocol Plan: Procedures Oxygen/Humidity: O2 to keep SpO2 > 92%, if not on any RT modality, D/C protocol if greater than 24 hours on room air SpO2: BID & PRN Additional Comments: Impressions of the patient: Alert, Cooperative Intervention(s)/outcome(s): RT assessment Patient education that was completed: N/A Recommendations to the care team: N/A Vital Signs: Pulse: 71 RR: SpO2: 96 O2 Device: RA Liter Flow: O2%: Breath Sounds: Clear Respiratory Effort: Non-labored * Micheline Simons OT - 05/26/2021 10:58 AM CDT OCCUPATIONAL THERAPY ASSESSMENT NOTE Name: Tanja Deal (Dee) : 1950 Age: 71 y.o. Admission Date: 05/23/2021 LOS: 3 days Mobility Patient Turn/Position: Self Progressive Mobility Level: Active transfer to chair Level of Assistance: Assist X2 Assistive Device: None Time Tolerated: 31-60 minutes Activity Limited By: Pain;Weakness;Dizziness Subjective Pertinent Dx per Physician: 71-year-old woman with past medical history of HTN, CAD s/p CABG 2015, CVA, CKD stage III, obesity left hip replacement and left TKR 03/2021 presented as a trauma transfer after a ground-level fall with a left per iprosthetic femur fracture. Patient Stated Goals: "I want to get home" Precautions: Falls L LE Precautions: LLE Toe Touch Weight Bearing Objective Psychosocial Status: Willing and Cooperative to Participate Persons Present: Daughter;Nursing Staff Home Living Type of Home: Apartment Home Layout: One Level;Performs ADL'S on One Level Bathroom Shower / Tub: Walk-in Shower Prior Function Level Of [place]: Independent with ADLs and functional transfers Lives With: Alone Receives Help From: None Needed Other Function Comments: Pt. reports she has family that lives nearby that can a ssist if needed. Vision Current Vision: Wears Glasses Only for Reading ADL's Where Assessed: Supine, Bed (bedside commode) LE Dressing Assist: Maximum Assist LE Dressing Deficits: Don/Doff R Sock;Don/Doff L Sock Toileting Assist: Maximum Assist Toileting Deficits: Supervision/Safety;Increased Time To Complete;Use of Bedpan/ Urinal Setup;Bedside Commode;Perineal Hygiene Comment: Pt. transferred to EOB and reported she needed to immediately go to the bathroom. Bedpan was place and patient urinated in bed jain. Pt. then requested to transfer to bedside commode to complete bowel movement. Pt. Urinated 200ml bu t unable to have a bowel movement during this encounter. Pt. required MOD assist x2 to transfer to/from bedside commode and MOD assist to complete manny-care. ADL Mobility Bed Mobility: Supine to Sit: Moderate assist (assist BLE) Bed Mobility: Sit to Supine: Moderate assist (assist BLE) Transfer Type: Stand pivot Transfer: Assistance Level: From;Bed;To;Commode;Moderate assist;x2 people (TTWB LLE) Transfer: Assistive Device: None Transfer: Type of Assistance: For safety considerations;For strength deficit;To maintain precautions;Verbal cues End of Activity Status: In bed;Nursing notified;Instructed patient to use call l ight;Instructed patient to request assist with mobility Transfer Comments: Pt. required MOD assist x2 to transfer from bed to BSC. Activity Tolerance Endurance: 4/5 Tolerates 30+ Minutes Exercise W/O Fatigue Cognition Overall Cognitive Status: WFL to Adequately Complete Self Care Tasks Safely Education Persons Educated: Patient/Family Barriers To Learning: Pain Teaching Methods: Verbal Instruction;Demonstration Patient Response: Verbalized and Demo Understanding Topics: Role of OT, Goals for Therapy Goal Formulation: With Patient/Family Assessment Assessment: Decreased ADL Status;Decreased Endurance;Decreased High-Level ADLs;D ecreased Self-Care Trans Prognosis: Good;w/Cont OT s/p Acute Discharge Goal Formulation: Pt/family AM-PAC 6 Clicks Daily Activity Inpatient Putting on and taking off regular lower body clothes?: A Lot Bathing (Including washing, rinsing, drying): A Lot Toileting, which includes using toilet, bedpan, or urinal: A Lot Putting on and taking off regular upper body clothing: A Little Taking care of personal grooming such as brushing teeth: A Little Eating meals?: None Daily Activity Raw Score: 16 Standardized (t-scale) score: 35.96 CMS 0-100% Score: 53.32 CMS G Code Modifier: CK Plan OT Frequency: 5x/week OT Plan for Next Visit: progress with mobility, LB dressing, commode transfers ADL Goals Patient Will Perform All ADL's: w/ Stand By Assist Patient Will Perform Grooming: Standing at Sink;w/ Stand By Assist Patient Will Perform LE Dressing: w/ Modified Independent;w/ Adaptive Equipment Functional Transfer Goals Pt Will Perform All Functional Transfers: w/ Stand By Assist, w/ Assistive Devic es OT Discharge Recommendations Recommendation: Inpatient setting;Recommend rehab medicine consult Recommendation for Therapy Post Discharge: Home health Patient Currently Requires Physical Assist With: All mobility;All personal care ADLs;All home functioning ADLs Patient Currently Requires Supervision For: ADLs;Mobility Patient Currently Requires Equipment: Walker with wheels;Bath/shower chair;Commo de: standard Comments: Currently, OT recommending inpatient setting upon discharge. Pt. eager to get home but understands that she needs to build up her strength. If patient does d/c to home, pt. will require consistent supervision from family and home health therapy services to participate in mobility based ADLS at this time. Patient requires the use of a walker with wheels to complete ADLs in the home in cluding meal preparation, ambulation to the bathroom for toileting, bathing and grooming, and safe home mobility. Patient is unable to complete these ADLs with a cane or crutch and can safely use the walker. Therapist: Micheline Simons OT Date: 05/26/2021 * Adriana Granger, DADA-GAME MANAGER - 05/26/2021 6:53 AM CDT Trauma Progress Note Today's Date: 05/26/2021 Hospital Day: Hospital Day: 4 HPI: Tanja Deal is a 71 y.o. female with a PMH of hypothyroidism, HTN, HLD, C AD, ischemic cardiology s/p CABG, T2DM, CKD, prior L hip fracture s/p arthroplas ty who presents as a trauma transfer after a fall. Pt states that she was steppi ng over a curb when she lost her balance and tried to catch herself on a nearby car. She slid down the car and landed on her right hip. She did not hit her head and denies LOC. She is only complaining of pain in her LEFT hip. Pt found to lakhani ve a left periprosthetic femur fx. Ortho was consulted and pt went to the OR on 05/25. Pt overall has a long surgical history. She had a prior fracture of her left hip requiring pinning in 09/2016. She additionally had a prior L knee arthroplasty in 08/2019. She had a 3-vessel CABG in 03/2016. Her only abdominal surgery is a prior laproscopic cholecystectomy. Pt had a prior stroke immediately following her open heart surgery in 2015. She is not taking any blood thinners. In regards to her diabetes, she has trajenta, and xigduo, as well as 10 units of long-acting basal insulin a day. Her last HA1 c in the system was 12.4 on 02/02/2021. 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 09/15/2020 Degenerative arthritis of left knee 08/28/2019 Elevated Lp(a) 07/09/2019 Ischemic cardiomyopathy 03/01/2018 S/P CABG (coronary artery bypass graft) 07/24/2017 CAD (coronary artery disease) 07/27/2016 ABLA (acute blood loss anemia) 03/26/2016 CVA (cerebral vascular accident) ([facility]) 03/26/2016 Class 2 severe obesity due to excess calories with serious comorbidity and b ashli mass index (BMI) of 37.0 to 37.9 in adult ([facility]) 03/17/2016 Anxiety 03/17/2016 CKD (chronic kidney disease) stage 3, GFR 30-59 ml/min ([facility]) 03/17/2016 Dyslipidemia associated with type 2 diabetes mellitus ([facility]) 03/17/2016 Type II diabetes mellitus ([facility]) 03/16/2016 Essential hypertension 03/16/2016 Hypothyroid 03/16/2016 Hyperlipidemia 03/16/2016 Neuro Acute pain due to trauma --Vanleer 1-2 tabs Q4H PRN --Gabapentin 100mg po BID Sleep disturbance/Anxiety/Depression --melatonin 3mg QHS --BRIDGE MANAGER Xanax and Zoloft CV HDS. See VS summary below Continue to monitor HTN/HLD --BRIDGE MANAGER Coreg, Rosuvastatin, ASA, Zetia Pulm Stable on RA. SpO2 94 Pulmonary toilet, encourage IS COPD --Albuterol Nebs GI/FEN Regular diet Bowel regimen SLIV Zofran prn nausea Monitor and replace lytes prn GERD --Protonix Voiding w/o difficulty UOP good CKD --Cr 1.23 (CKD w/ baseline Cr 1.2-1.5) Heme/ID Acute blood loss anemia -- Hgb 8.3 (11.6). Hgb low, but no clinical signs of overt bleeding. Continue to trend serially. Optimize fluid balance. Monitor stools for signs of occult GI b leeding. Leukocytosis --WBC 30.2 (20.4) and falling- likely reactive --Continue to monitor for fever or signs of illness Endo DMII --SSI Regular Insulin 5xday Hypothyroid --BRIDGE MANAGER Levothyroxine MS PT/OT Gout --BRIDGE MANAGER Allopurinol and colchicine Left Periprosthetic Hip fracture -- TTWB LLE --HV in place --OR with Ortho on 05/25 --recommend lovenox while in house, followed by asa 81 mg BID x 4 weeks --Upon discharge, please have the patient f/u with Dr. Wu from [facility] in 2 weeks by calling [phone] PPx SCDs, Lovenox Disp - PT/OT/paoin control - anticipate placement SW/CM following for discharge planning needs. Patient discussed with Dr. Bennett during rounds. Subjective Overnight Events: No acute overnight events. Pt sitting up and interactive with staff. Pt states she just got some Oxy and her pain is currently well controlled . States she has had a good appetite and she slept OK. Discussed PT/OT and pain control today. Plan of care discussed.States an understanding. Discussed elevati on of leg as well. Denies CP, SOA, abd pain, N/V/D, headache or dizziness Objective: Physical Exam: General: in no apparent distress, well developed and well nourished, alert, orie nted times 3, afebrile, anicteric and cooperative Head/Ears/Eyes/Nose/Throat: normal atraumatic, no neck masses, no jvd Respiratory: Clear Auscultation bilaterally, even and unlabored respirations Cardiovascular: Regular rate and rhythm, no murmurs Abdomen: No Distention and No Tenderness, normal active bowel sounds Extremities: Warm and well perfused and No edema, incision to L hip with dressin g in place C/D/I. Edema to thigh noted and slightly tightened. 2+ distal pulses, warm to touch and sensation intact. HV in place with bloody drainage Neuro: alert, oriented x3, speech normal in contrext and clarity, memory intact grossly, motor strength: full proximally and distally, no involuntary movements - tremors, sensation: intact to vibration, pain, and light touch and Lexis Sco re 15 Derm: Warm, dry, anicteric Musc: Normal ROM and Normal strength and tone except for LLE due to injury Vital Signs: (24 hours) BP: (96-160)/(41-85) Temp: [36.3 C (97.3 F)-37.6 C (99.7 F)] Pulse: [69-81] Respirations: [10 PER MINUTE-18 PER MINUTE] SpO2: [92 %-100 %] Intake/Output Summary: Intake/Output Summary (Last 24 hours) at 05/26/2021 0653 Last data filed at 05/26/2021 0545 Gross per 24 hour Intake 2220 ml Output 2974.5 ml Net -754.5 ml Date of Last Stool: BRIDGE MANAGER Medications: Scheduled Meds:allopurinoL (ZYLOPRIM) tablet 300 mg, 300 mg, Oral, QDAY aspirin EC tablet 81 mg, 81 mg, Oral, QDAY carvediloL (COREG) tablet 6.25 mg, 6.25 mg, Oral, BID cholecalciferol (VITAMIN D-3) tablet 5,000 Units, 5,000 Units, Oral, QDAY enoxaparin (LOVENOX) syringe 30 mg, 30 mg, Subcutaneous, BID ezetimibe (ZETIA) tablet 10 mg, 10 mg, Oral, QDAY gabapentin (NEURONTIN) capsule 100 mg, 100 mg, Oral, BID insulin aspart (U-100) (NOVOLOG FLEXPEN U-100 INSULIN) injection PEN 0-12 Units, 0-12 Units, Subcutaneous, 5 X Daily insulin glargine (LANTUS SOLOSTAR U-100 INSULIN) injection PEN 9 Units, 9 Units, Subcutaneous, QHS(22) levothyroxine (SYNTHROID) tablet 88 mcg, 88 mcg, Oral, QDAY pantoprazole DR (PROTONIX) tablet 40 mg, 40 mg, Oral, QDAY(21) polyethylene glycol 3350 (MIRALAX) packet 17 g, 1 packet, Oral, QDAY rosuvastatin (CRESTOR) tablet 40 mg, 40 mg, Oral, QDAY senna/docusate (SENOKOT-S) tablet 1 tablet, 1 tablet, Oral, BID sertraline (ZOLOFT) tablet 100 mg, 100 mg, Oral, QDAY Continuous Infusions: sodium chloride 0.9 % infusion 1,000 mL (05/25/21 0931) PRN and Respiratory Meds:acetaminophen Q4H PRN, albuterol 0.083% Q4H PRN, ALPRAZ olam QHS PRN, colchicine QDAY PRN, fentaNYL citrate PF Q1H PRN, ondansetron (ZOF RAN) IV Q6H PRN, oxyCODONE Q4H PRN Prophylaxis Review: Peptic Ulcer Disease: None: Not indicated VTE: Pharmacological prophylaxis; Enoxaparin and Mechanical prophylaxis; Sequent ial compression device Lines, Drains, and Airways: Lines, Drains, Airways and Wounds IV Peripheral IV 05/23/21 1908 Left Antecubital 20 G 2 days Peripheral IV 05/25/21 1056 Left Hand 20 G <1 day Drain Indwelling Urinary Catheter 05/23/21 1908 2 days Hemovac Drain 05/25/21 1318 Left;Upper Leg <1 day Wound Wounds 05/25/21 1101 Surgical incision Left;Upper Thigh <1 day Pertinent labs, medications, radiology, and diagnostic procedures reviewed inclu ding: active problem list, medication list, allergies, family history, social hi story, health maintenance, notes from last encounter, lab results, imaging Adriana Granger APRN-GAME MANAGER [id number] Trauma Team Pager [phone] * Tamara Ulloa, PT - 05/25/2021 2:10 PM CDT PHYSICAL THERAPY NOTE Name: Tanja Deal (Dee) : 1950 Age: 71 y.o. Admission Date: 05/23/2021 LOS: 2 days 10:30 AM, 2:10 PM - Patient was unavailable for physical + occupational therapy due to being off unit for OR. PT + OT will continue to follow and provide inter vention as indicated. Therapist: Tamara Ulloa, PT Date: 05/25/2021 * Lenin Carbone MD - 05/25/2021 2:09 PM CDT Ortho Update Note: Post-Op Recommendations A/P: Tanja Deal is a 71F w/ L periprosthetic proximal femur fx s/p ORIF 05/25 - PT/OT - WB status: TTWB LLE - Please record HV output - Abx: Ancef x 24 hrs post op (ordered) - Pain control per primary team - Ortho to maintain dressings - Call ortho with questions - DVT prophylaxis/anticoagulation per primary team; recommend lovenox while in h ouse, followed by asa 81 mg BID x 4 weeks - May resume Diet - Disposition: Pt will not require foreseeable future Orthopedic surgical operat ben intervention during this admission Upon discharge, please have the patient [facility] by calling [phone] Lenin Carbone MD Pager [phone] * Sebastián Marley MD - 05/25/2021 8:45 AM CDT General Progress Note Name: Tanja Deal Today's Date: 05/25/2021 Admission Date: 05/23/2021 LOS: 2 days Assessment/Plan: Principal Problem: Trauma Active Problems: Type II diabetes mellitus (HCC) Essential hypertension Hypothyroid Hyperlipidemia Class 2 severe obesity due to excess calories with serious comorbidity and bod y mass index (BMI) of 37.0 to 37.9 in adult (HCC) Anxiety CKD (chronic kidney disease) stage 3, GFR 30-59 ml/min (HCC) Dyslipidemia associated with type 2 diabetes mellitus (HCC) ABLA (acute blood loss anemia) CAD (coronary artery disease) S/P CABG (coronary artery bypass graft) Ischemic cardiomyopathy Degenerative arthritis of left knee Hip fracture (HCC) Thrombocytopenia (HCC) 71-year-old woman with past medical history of HTN, CAD s/p CABG 2015, CVA, CKD stage III, obesity left hip replacement and left TKR 03/2021 presented as a traum a transfer after a ground-level fall with a left periprosthetic femur fracture. 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 MANAGER, she has no overt signs of heart failure, breathing comfortable supine with satur ations 95-97% Echo 01/2021 showed LVEF 50- 55%, grade 1 diastolic dysfunction NM stress test 01/2021 reported low risk for induced reversible ischemia Continue low dose asa, carvedilol 6.25 mg bid, rosuvastatin 40 mg and zetia, she appears euvolemic during exam okay to hold spironolactone perioperatively Diabetes mellitus type 2 with neuropathy and CKD stage III, admit hemoglobin A1c 8.1% Hold OHA, continue sliding scale insulin, added lantus 9units starting tonight CKD stage III, serum creatinine is at baseline, avoid NSAIDs or studies with con trast Asthma, no bronchospasms, continue BRIDGE MANAGER Combivent hypothyroidism, continue levoth yroxine 88 mcg daily Obesity class II with a BMI 37.6, patient reported she is already working on [employer] ght loss by restricting calories Gout, continue colchicine Mood disorder, depression, continue Zoloft milligrams daily Chronic anemia and thrombocytopenia, anemia related to CKD Discussed with patient and her daughter 05/24 to discuss with PCP about nonurgent DEXA scan and polysomnography in the future DVT prophylaxis: Lovenox Disposition: OR today, anticipate dc in 2-3 days when pain is adequately control led and stable Patient is at moderate risk for orthopedic hip procedure with an RCRI risk of 10 % for perioperative MACE, risk of complication from not having surgery is more t quiroz proceeding, she is medically optimized for procedure today. Subjective Tanja Kathleen Deal is a 71 y.o. female admitted for left hip fracture. Patient i s seen in preoperative bay, no pain at rest, denies chest pain, shortness of dilan ath or cough. Medications Scheduled Meds:allopurinoL (ZYLOPRIM) tablet 300 mg, 300 mg, Oral, QDAY aspirin EC tablet 81 mg, 81 mg, Oral, QDAY carvediloL (COREG) tablet 6.25 mg, 6.25 mg, Oral, BID cholecalciferol (VITAMIN D-3) tablet 5,000 Units, 5,000 Units, Oral, QDAY enoxaparin (LOVENOX) syringe 30 mg, 30 mg, Subcutaneous, BID ezetimibe (ZETIA) tablet 10 mg, 10 mg, Oral, QDAY gabapentin (NEURONTIN) capsule 100 mg, 100 mg, Oral, BID insulin aspart (U-100) (NOVOLOG FLEXPEN U-100 INSULIN) injection PEN 0-12 Units, 0-12 Units, Subcutaneous, 5 X Daily levothyroxine (SYNTHROID) tablet 88 mcg, 88 mcg, Oral, QDAY pantoprazole DR (PROTONIX) tablet 40 mg, 40 mg, Oral, QDAY(21) polyethylene glycol 3350 (MIRALAX) packet 17 g, 1 packet, Oral, QDAY rosuvastatin (CRESTOR) tablet 40 mg, 40 mg, Oral, QDAY senna/docusate (SENOKOT-S) tablet 1 tablet, 1 tablet, Oral, BID sertraline (ZOLOFT) tablet 100 mg, 100 mg, Oral, QDAY Continuous Infusions: lactated ringers infusion 100 mL/hr at 05/24/213 PRN and Respiratory Meds:acetaminophen Q4H PRN, albuterol 0.083% Q4H PRN, ALPRAZ olam QHS PRN, colchicine QDAY PRN, fentaNYL citrate PF Q1H PRN, ondansetron (ZOF RAN) IV Q6H PRN, oxyCODONE Q4H PRN Objective: Vital Signs: Last Filed Vital Signs: 24 Mack r Range BP: 139/47 (05/25 0500) Temp: 37.2 C (98.9 F) (05/25 0732) Pulse: 80 (05/25 0500) Respirations: 16 PER MINUTE (05/25 0500) SpO2: 94 % (05/25 0505) BP: (124-139)/(40-56) Temp: [36.8 C (98.2 F)-38.1 C (100.5 F)] Pulse: [66-80] Respirations: [16 PER MINUTE] SpO2: [88 %-95 %] Intensity Pain Scale (Self Report): 6 (05/24/211944) Vitals: 05/23/21 1847 Weight: 90.3 kg (199 lb) Intake/Output Summary: (Last 24 hours) Intake/Output Summary (Last 24 hours) at 05/25/2021 0845 Last data filed at 05/25/2021 0500 Gross per 24 hour Intake 860 ml Output 1950 ml Net -1090 ml Physical Exam General appearance: cooperative and no distress Respiratory: clear to auscultation bilaterally, no wheezing or rales Cardiovascular: regular rate and rhythm, S1, S2 normal, no murmur or gallop GI: Abdomen: soft, non distended, non-tender, bowel sounds are present Extremities: moves all limbs, restricted left leg movement because of pain, no e conchita Genitourinary: no bladder distension Skin: dry, no rashes Neurologic: Alert, awake and oriented X 4, normal speech, normal strength and to ne Psych: normal mood, affect and insight Lab Review 24-hour labs: Results for orders placed or performed during the hospital encounter of 05/23/21 (from the past 24 hour(s)) POC GLUCOSE Collection Time: 05/24/21 5:01 PM Result Value Ref Range Glucose, POC 260 (H) 70 - 100 MG/DL POC GLUCOSE Collection Time: 05/24/21 9:24 PM Result Value Ref Range Glucose, POC 196 (H) 70 - 100 MG/DL POC GLUCOSE Collection Time: 05/25/21 2:42 AM Result Value Ref Range Glucose, POC 157 (H) 70 - 100 MG/DL CBC Collection Time: 05/25/21 4:40 AM Result Value Ref Range White Blood Cells 20.4 (H) 4.5 - 11.0 K/UL RBC 3.37 (L) 4.0 - 5.0 M/UL Hemoglobin 10.9 (L) 12.0 - 15.0 GM/DL Hematocrit 32.6 (L) 36 - 45 % MCV 96.7 80 - 100 FL MCH 32.3 26 - 34 PG MCHC 33.4 32.0 - 36.0 G/DL RDW 17.6 (H) 11 - 15 % Platelet Count 104 (L) 150 - 400 K/UL MPV 9.5 7 - 11 FL COMPREHENSIVE METABOLIC PANEL Collection Time: 05/25/21 4:40 AM Result Value Ref Range Sodium 139 137 - 147 MMOL/L Potassium 4.7 3.5 - 5.1 MMOL/L Chloride 103 98 - 110 MMOL/L Glucose 188 (H) 70 - 100 MG/DL Blood Urea Nitrogen 22 7 - 25 MG/DL Creatinine 1.38 (H) 0.4 - 1.00 MG/DL Calcium 8.6 8.5 - 10.6 MG/DL Total Protein 5.7 (L) 6.0 - 8.0 G/DL Total Bilirubin 0.7 0.3 - 1.2 MG/DL Albumin 3.5 3.5 - 5.0 G/DL Alk Phosphatase 62 25 - 110 U/L AST (SGOT) 22 7 - 40 U/L CO2 28 21 - 30 MMOL/L ALT (SGPT) 14 7 - 56 U/L Anion Gap 8 3 - 12 eGFR Non 38 (L) >60 mL/min eGFR 45 (L) >60 mL/min MAGNESIUM Collection Time: 05/25/21 4:40 AM Result Value Ref Range Magnesium 1.8 1.6 - 2.6 mg/dL PHOSPHORUS Collection Time: 05/25/21 4:40 AM Result Value Ref Range Phosphorus 3.8 2.0 - 4.5 MG/DL POC GLUCOSE Collection Time: 05/25/21 7:55 AM Result Value Ref Range Glucose, POC 187 (H) 70 - 100 MG/DL POC GLUCOSE Collection Time: 05/25/21 10:17 AM Result Value Ref Range Glucose, POC 179 (H) 70 - 100 MG/DL Point of Care Testing (Last 24 hours) Glucose: (!) 188 (05/25/21 5960) POC Glucose (Download): (!) 187 (05/25/21 8284) Radiology and other Diagnostics Review: No pertinent radiology. Sebastián Marley MD Pager: # [phone] * Dany Winter APRN-GAME MANAGER - 05/25/2021 7:48 AM CDT Trauma Progress Note Today's Date: 05/25/2021 Hospital Day: Hospital Day: 3 HPI: Tanja Deal is a 71 y.o. female with a PMH of hypothyroidism, HTN, HLD, C AD, ischemic cardiology s/p CABG, T2DM, CKD, prior L hip fracture s/p arthroplas ty who presents as a trauma transfer after a fall. Pt states that she was steppi ng over a curb when she lost her balance and tried to catch herself on a nearby car. She slid down the car and landed on her right hip. She did not hit her head and denies LOC. She is only complaining of pain in her LEFT hip. Pt overall has a long surgical history. She had a prior fracture of her left hip requiring pinning in 09/2016. She additionally had a prior L knee arthroplasty in 08/2019. She had a 3-vessel CABG in 03/2016. Her only abdominal surgery is a prior laproscopic cholecystectomy. Pt had a prior stroke immediately following her open heart surgery in 2015. She is not taking any blood thinners. In regards to her diabetes, she has trajenta, and xigduo, as well as 10 units of long-acting basal insulin a day. Her last HA1 c in the system was 12.4 on 02/02/2021. L extremity XRAY from outside facility revealed a L periprosthetic femur fx. 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 09/15/2020 Degenerative arthritis of left knee 08/28/2019 Elevated Lp(a) 07/09/2019 Ischemic cardiomyopathy 03/01/2018 S/P CABG (coronary artery bypass graft) 07/24/2017 CAD (coronary artery disease) 07/27/2016 ABLA (acute blood loss anemia) 03/26/2016 CVA (cerebral vascular accident) ([facility]) 03/26/2016 Class 2 severe obesity due to excess calories with serious comorbidity and b ashli mass index (BMI) of 37.0 to 37.9 in adult ([facility]) 03/17/2016 Anxiety 03/17/2016 CKD (chronic kidney disease) stage 3, GFR 30-59 ml/min ([facility]) 03/17/2016 Dyslipidemia associated with type 2 diabetes mellitus ([facility]) 03/17/2016 Type II diabetes mellitus ([facility]) 03/16/2016 Essential hypertension 03/16/2016 Hypothyroid 03/16/2016 Hyperlipidemia 03/16/2016 Neuro Acute pain due to trauma --Tylenol 650mg po q 4 hours PRN --Fenanyl 25-50mcg IV q 1 hour PRN severe pain --Gabapentin 100mg po BID Sleep disturbance CV HDS. See VS summary below Continue to monitor BRIDGE MANAGER Coreg and Rosuvastatin Pulm Stable on RA. SpO2 94 Pulmonary toilet, encourage IS Albuterol Nebs GI/FEN Regular diet Bowel regimen SLIV Zofran prn nausea Monitor and replace lytes prn Protonix Voiding w/o difficulty UOP good Cr 1.38 (CKD w/ baseline Cr 1.2-1.5) Heme/ID Acute blood loss anemia -- Hgb 11.6. Hgb low, but no clinical signs of overt bleeding. Continue to trend serially. Optimize fluid balance. Monitor stools for signs of occult GI bleedin g. Leukocytosis --WBC 20.4 and falling- likely reactive --Continue to monitor for fever or signs of illness Endo SSI Regular Insulin 5xday BRIDGE MANAGER Levothyroxine MS PT/OT Gout BRIDGE MANAGER Allopurinol and colchicine Left Periprosthetic Hip fracture Orthopedics team following. Recs: -Patient needs to be nonweightbearing of left lower extremity. No acute inventi on at this time. Patient can have a diet from our standpoint today. Please joey p her n.p.o. at midnight for possible operative intervention tomorrow, however t his is unlikely. Her operative intervention will likely be later in the week. We will discuss with joint staff for definitive treatment. -Antibiotics / Tetanus - per primary -Pain Control - per primary -Diet - per primary -DVT PPX - Mechanical, Chemoprophylaxis - per primary PPx SCDs, Lovenox Disp - Continue inpatient care SW/CM following for discharge planning needs. Patient discussed with Dr. Bennett during rounds. Subjective Overnight Events: Low grade temp and oxygen desaturation to 88%. States she did not feel sick or feverish. Objective: Physical Exam: General: in no apparent distress, well developed and well nourished, alert, orie nted times 3, afebrile, anicteric and cooperative Head/Ears/Eyes/Nose/Throat: normal atraumatic, no neck masses, no jvd Respiratory: Clear Auscultation Cardiovascular: Regular rate and rhythm Abdomen: No Distention and No Tenderness Extremities: Warm and well perfused and No edema Neuro: alert, oriented x3, speech normal in contrext and clarity, memory intact grossly, motor strength: full proximally and distally, no involuntary movements - tremors, sensation: intact to vibration, pain, and light touch and Lexis Sco re 15 Derm: Warm, dry, anicteric Musc: Normal ROM and Normal strength and tone Vital Signs: (24 hours) BP: (124-139)/(40-56) Temp: [36.8 C (98.2 F)-38.1 C (100.5 F)] Pulse: [66-80] Respirations: [16 PER MINUTE] SpO2: [88 %-95 %] Intake/Output Summary: Intake/Output Summary (Last 24 hours) at 05/25/2021 0748 Last data filed at 05/25/2021 0500 Gross per 24 hour Intake 860 ml Output 1950 ml Net -1090 ml Date of Last Stool: BRIDGE MANAGER Medications: Scheduled Meds:allopurinoL (ZYLOPRIM) tablet 300 mg, 300 mg, Oral, QDAY aspirin EC tablet 81 mg, 81 mg, Oral, QDAY carvediloL (COREG) tablet 6.25 mg, 6.25 mg, Oral, BID cholecalciferol (VITAMIN D-3) tablet 5,000 Units, 5,000 Units, Oral, QDAY enoxaparin (LOVENOX) syringe 30 mg, 30 mg, Subcutaneous, BID ezetimibe (ZETIA) tablet 10 mg, 10 mg, Oral, QDAY gabapentin (NEURONTIN) capsule 100 mg, 100 mg, Oral, BID insulin aspart (U-100) (NOVOLOG FLEXPEN U-100 INSULIN) injection PEN 0-12 Units, 0-12 Units, Subcutaneous, 5 X Daily levothyroxine (SYNTHROID) tablet 88 mcg, 88 mcg, Oral, QDAY pantoprazole DR (PROTONIX) tablet 40 mg, 40 mg, Oral, QDAY(21) polyethylene glycol 3350 (MIRALAX) packet 17 g, 1 packet, Oral, QDAY rosuvastatin (CRESTOR) tablet 40 mg, 40 mg, Oral, QDAY senna/docusate (SENOKOT-S) tablet 1 tablet, 1 tablet, Oral, BID sertraline (ZOLOFT) tablet 100 mg, 100 mg, Oral, QDAY Continuous Infusions: lactated ringers infusion 100 mL/hr at 05/24/21 191 PRN and Respiratory Meds:acetaminophen Q4H PRN, albuterol 0.083% Q4H PRN, ALPRAZ olam QHS PRN, colchicine QDAY PRN, fentaNYL citrate PF Q1H PRN, ondansetron (ZOF RAN) IV Q6H PRN, oxyCODONE Q4H PRN Prophylaxis Review: Peptic Ulcer Disease: None: Not indicated VTE: Pharmacological prophylaxis; Enoxaparin and Mechanical prophylaxis; Sequent ial compression device Lines, Drains, and Airways: Lines, Drains, Airways and Wounds IV Peripheral IV 05/23/211907 Left Antecubital 20 G 1 day Drain Indwelling Urinary Catheter 05/23/211907 1 day Airway ETT 1889 days Pertinent labs, medications, radiology, and diagnostic procedures reviewed inclu ding: active problem list, medication list, allergies, family history, social hi story, health maintenance, notes from last encounter, lab results, imaging Dany Winter, DADA-GAME MANAGER [id number] Trauma Team Pager [phone] * Loy Huizar MD - 05/25/2021 5:42 AM CDT Brief Ortho Note OR today for operative fixation of left periprosthetic femur fracture. Please keep NPO Posted, needs consent Loy Huizar MD P [phone] * Jody Sheikh RN - 05/25/2021 5:38 AM CDT Re: VS. Requiring O2. 88 RA. 94 NC 2L. See flowsheet for temp. Cont to brayden . * Dee Reid PT - 05/24/2021 2:59 PM CDT PHYSICAL THERAPY NOTE Name: Tanja Deal (Dee) : 1950 Age: 71 y.o. Admission Date: 05/23/2021 LOS: 1 day Attempted to see patient for PT/OT. Patient politely declines due to high pain, requests to wait until after OR for therapy. Physical and Occupational Therapy w ill follow up as indicated. Subjective Significant hospital events: 71 y.o. female with past medical history of hyperte nsion, ischemic cardiomyopathy status post CABG, L AGUSTIN 03/2021, admitted due to fall up curbstep, 05/25 for ORIF L periprosthetic femur fracture. Mental / Cognitive Status: Alert;Oriented Persons Present: Nursing Staff Pain: Patient complains of pain;Before activity;3/10 at rest Pain Location: Left;Leg Pain Description: Aching;Sharp L LE Precautions: LLE Non-Weight Bearing Ambulation Assist: Independent Mobility in Community with Device Patient Owned Equipment: Single Point Cane Home Situation: Lives Alone Type of Home: Apartment In-Home Stairs: No Stairs Comments: Patient lives alone in apartment. Able to have assist from friends/fam renetta as needed. Walk in shower with bench, grab bars in shower and around toilet. Reports this is the only fall, tripping stepping up curbstep. Uses cane at base line and was independent/driving. Therapist Dee Reid, PT , DPT Date 05/24/2021 * Eduin Barron MD - 05/24/2021 10:35 AM CDT Brief ortho update note Patient can have a diet from our standpoint for today. [facility] She will go to OR with Dr Wu tomorrow 05/25 for ORIF L periprosthetic femur fracture. Please page ortho with any questions or concerns. Anderson [phone] * Dany Winter, BEAUTY SPECIALIST-GAME MANAGER - 05/24/2021 8:32 AM CDT Trauma Progress Note Today's Date: 05/24/2021 Hospital Day: Hospital Day: 2 HPI: Tanja Deal is a 71 y.o. female with a PMH of hypothyroidism, HTN, HLD, C AD, ischemic cardiology s/p CABG, T2DM, CKD, prior L hip fracture s/p arthroplas ty who presents as a trauma transfer after a fall. Pt states that she was steppi ng over a curb when she lost her balance and tried to catch herself on a nearby car. She slid down the car and landed on her right hip. She did not hit her head and denies LOC. She is only complaining of pain in her LEFT hip. Pt overall has a long surgical history. She had a prior fracture of her left hip requiring pinning in 09/2016. She additionally had a prior L knee arthroplasty in 08/2019. She had a 3-vessel CABG in 03/2016. Her only abdominal surgery is a prior laproscopic cholecystectomy. Pt had a prior stroke immediately following her open heart surgery in 2015. She is not taking any blood thinners. In regards to her diabetes, she has trajenta, and xigduo, as well as 10 units of long-acting basal insulin a day. Her last HA1 c in the system was 12.4 on 02/02/2021. L extremity XRAY from outside facility revealed a L periprosthetic femur fx. 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 09/15/2020 Degenerative arthritis of left knee 08/28/2019 Elevated Lp(a) 07/09/2019 Ischemic cardiomyopathy 03/01/2018 S/P CABG (coronary artery bypass graft) 07/24/2017 CAD (coronary artery disease) 07/27/2016 ABLA (acute blood loss anemia) 03/26/2016 CVA (cerebral vascular accident) (HCC) 03/26/2016 Class 2 severe obesity due to excess calories with serious comorbidity and b ashli mass index (BMI) of 37.0 to 37.9 in adult ([facility]) 03/17/2016 Anxiety 03/17/2016 CKD (chronic kidney disease) stage 3, GFR 30-59 ml/min ([facility]) 03/17/2016 Dyslipidemia associated with type 2 diabetes mellitus ([facility]) 03/17/2016 Type II diabetes mellitus ([facility]) 03/16/2016 Essential hypertension 03/16/2016 Hypothyroid 03/16/2016 Hyperlipidemia 03/16/2016 Neuro Acute pain due to trauma --Tylenol 650mg po q 4 hours PRN --Fenanyl 25-50mcg IV q 1 hour PRN severe pain --Gabapentin 100mg po BID Sleep disturbance CV HDS. See VS summary below Continue to monitor BRIDGE MANAGER Coreg and Rosuvastatin Pulm Stable on RA. SpO2 94 Pulmonary toilet, encourage IS Albuterol Nebs GI/FEN Regular diet Bowel regimen SLIV Zofran prn nausea Monitor and replace lytes prn Protonix Voiding w/o difficulty UOP good Cr 1.37 (CKD w/ baseline Cr 1.2-1.5) Heme/ID Acute blood loss anemia -- Hgb 11.6. Hgb low, but no clinical signs of overt bleeding. Continue to trend serially. Optimize fluid balance. Monitor stools for signs of occult GI bleedin g. Leukocytosis --WBC 20.8 likely reactive --Continue to monitor for fever or signs of illness Endo SSI Regular Insulin 5xday BRIDGE MANAGER Levothyroxine MS PT/OT Gout BRIDGE MANAGER Allopurinol and colchicine Left Periprosthetic Hip fracture Orthopedics team following. Recs: -Patient needs to be nonweightbearing of left lower extremity. No acute inventi on at this time. Patient can have a diet from our standpoint today. Please joey p her n.p.o. at midnight for possible operative intervention tomorrow, however t his is unlikely. Her operative intervention will likely be later in the week. We will discuss with joint staff for definitive treatment. -Antibiotics / Tetanus - per primary -Pain Control - per primary -Diet - per primary -DVT PPX - Mechanical, Chemoprophylaxis - per primary PPx SCDs, Lovenox Disp - Continue inpatient care SW/CM following for discharge planning needs. Patient discussed with Dr. Bennett during rounds. Subjective Overnight Events: DOMINGA overnight. Pain controlled. Objective: Physical Exam: General: in no apparent distress, well developed and well nourished, alert, orie nted times 3, afebrile, anicteric and cooperative Head/Ears/Eyes/Nose/Throat: normal atraumatic, no neck masses, no jvd Respiratory: Clear Auscultation Cardiovascular: Regular rate and rhythm Abdomen: No Distention and No Tenderness Extremities: Warm and well perfused and No edema Neuro: alert, oriented x3, speech normal in contrext and clarity, memory intact grossly, motor strength: full proximally and distally, no involuntary movements - tremors, sensation: intact to vibration, pain, and light touch and [place] Sco re 15 Derm: Warm, dry, anicteric Musc: Normal ROM and Normal strength and tone Vital Signs: (24 hours) BP: (112-145)/(49-65) Temp: [36.8 C (98.2 F)-37.1 C (98.7 F)] Pulse: [72-83] Respirations: [15 PER MINUTE-18 PER MINUTE] SpO2: [94 %-97 %] Intake/Output Summary: Intake/Output Summary (Last 24 hours) at 05/24/2021 0833 Last data filed at 05/24/2021 0521 Gross per 24 hour Intake 641 ml Output 400 ml Net 241 ml Date of Last Stool: BRIDGE MANAGER Medications: Scheduled Meds:allopurinoL (ZYLOPRIM) tablet 300 mg, 300 mg, Oral, QDAY carvediloL (COREG) tablet 6.25 mg, 6.25 mg, Oral, BID enoxaparin (LOVENOX) syringe 30 mg, 30 mg, Subcutaneous, BID gabapentin (NEURONTIN) capsule 100 mg, 100 mg, Oral, BID insulin aspart (U-100) (NOVOLOG FLEXPEN U-100 INSULIN) injection PEN 0-12 Units, 0-12 Units, Subcutaneous, 5 X Daily levothyroxine (SYNTHROID) tablet 88 mcg, 88 mcg, Oral, QDAY pantoprazole DR (PROTONIX) tablet 40 mg, 40 mg, Oral, QDAY(21) polyethylene glycol 3350 (MIRALAX) packet 17 g, 1 packet, Oral, QDAY rosuvastatin (CRESTOR) tablet 40 mg, 40 mg, Oral, QDAY senna/docusate (SENOKOT-S) tablet 1 tablet, 1 tablet, Oral, BID Continuous Infusions: lactated ringers infusion 100 mL/hr at 05/24/21 0915 PRN and Respiratory Meds:acetaminophen Q4H PRN, albuterol 0.083% Q4H PRN, colchi cine QDAY PRN, fentaNYL citrate PF Q1H PRN, ondansetron (ZOFRAN) IV Q6H PRN, oxy CODONE Q4H PRN Prophylaxis Review: Peptic Ulcer Disease: None: Not indicated VTE: Pharmacological prophylaxis; Enoxaparin and Mechanical prophylaxis; Sequent ial compression device Lines, Drains, and Airways: Lines, Drains, Airways and Wounds IV Peripheral IV 05/23/211907 Left Antecubital 20 G <1 day Drain Indwelling Urinary Catheter 05/23/211907 <1 day Airway ETT 1888 days Pertinent labs, medications, radiology, and diagnostic procedures reviewed inclu ding: active problem list, medication list, allergies, family history, social hi story, health maintenance, notes from last encounter, lab results, imaging Dany Winter, DADA-GAME MANAGER [id number] Trauma Team Pager [phone] * Toño Palm RN - 05/23/2021 11:09 PM CDT This RN initiated education binder and left at patient's bedside for review with RNs. * Joaquina Ordonez RT - 05/23/2021 9:56 PM CDT RT Adult Assessment Note NAME:Tanja Deal :1950 AGE: 71 y.o. ADMISSION DATE: 05/23/2021 DAYS ADMITTED: LOS: 0 days RT Treatment Plan: Protocol Plan: Medications Albuterol: Nebulizer PRN Protocol Plan: Procedures PEP Therapy: Place a nursing order for "IS Q1h While Awake" for any of Lung Expa nsion indicators Additional Comments: Impressions of the patient: Patient is resting on RA. No respiratory complaints or distress Intervention(s)/outcome(s): Albuterol PRn Patient education that was completed: n/a Recommendations to the care team: Re-evaluate post-operately and as per RT johnson col Vital Signs: Pulse: 77 RR: 16 PER MINUTE SpO2: 94 % O2 Device: Liter Flow: O2%: Breath Sounds: Clear (Implies normal) Respiratory Effort: Non-Labored * Jo Shepard RN - 05/23/2021 6:40 PM CDT Notified trauma team of patient arrival. Trauma team stated someone would be by shortly to see the patient. Patient updated with plan. Nothing further at this t shakila. documented in this encounter H&P Notes * Dany Winter APRN-KAILEY - 05/25/2021 6:44 PM CDT Tertiary Trauma Survey (TTS) Date of TTS: 05/25/2021 Admission Date: 05/23/2021 Trauma Activation Type: Transfer HPI: Tanja Deal is a 71 y.o. female with a PMH of hypothyroidism, HTN, HLD, C AD, ischemic cardiology s/p CABG, T2DM, CKD, prior L hip fracture s/p arthroplas ty who presents as a trauma transfer after a fall. Pt states that she was steppi ng over a curb when she lost her balance and tried to catch herself on a nearby car. She slid down the car and landed on her right hip. She did not hit her head and denies LOC. She is only complaining of pain in her LEFT hip. Pt overall has a long surgical history. She had a prior fracture of her left hip requiring pinning in 09/2016. She additionally had a prior L knee arthroplasty in 08/2019. She had a 3-vessel CABG in 03/2016. Her only abdominal surgery is a prior laproscopic cholecystectomy. Pt had a prior stroke immediately following her open heart surgery in 2015. She is not taking any blood thinners.In regards to her diabetes, she has trajenta, and xigduo, as well as 10 units of long-acting basal insulin a day.Her last H A1c in the system was 12.4 on 02/02/2021. L extremity XRAY from outside facility revealed a L periprosthetic femur fx. PMHx: Medical History: Diagnosis Date Anxiety 03/17/2016 Arrhythmia Patient denies Arthritis Back pain Cardiac arrhythmia Chest pain Coronary artery disease Essential hypertension 03/16/2016 Fibromyalgia No current treatment required Gout Heart attack ([facility]) 03/14/2016 History of non-ST elevation myocardial infarction (NSTEMI) 03/14/2016 Hyperlipidemia 03/16/2016 Hypothyroid 03/16/2016 Kidney insufficiency 07/09/19 BUN/Cr: 26/1.23 - Monitored by PCP Morbid obesity with BMI of 40.0-44.9, adult ([facility]) 03/17/2016 Neuropathy Patient denies Numbness and tingling in left hand Due to CVA Osteoarthritis Stroke ([facility]) 03/22/2016 RUE weakness Thyroid disease Type II diabetes mellitus ([facility]) 03/16/2016 Managed with metformin & glimepiride PSHx: Surgical History: Procedure Laterality Date HX HEART CATHETERIZATION 03/2016 Lt Heart Cath With Ventriculogram Left 03/17/2016 Performed by Lenin Coreas MD at [facility] BAND [employer] M[employer] AND CARRIAGE OPERATOR Coronary Angiography N/A 03/17/2016 Performed by Lenin Coreas MD at 2 [employer] CARRIAGE OPERATOR BYPASS GRAFT CORONARY ARTERY, SIOBHAN, EVH N/A 03/22/2016 Performed by Demarco Byrd MD at [facility] CVOR HIP SURGERY Left 09/09/2016 L hip/ Pelvis - fracture repair ARTHROPLASTY TOTAL KNEE Left 08/28/2019 Performed by Uday Sánchez MD at [facility] OR MANIPULATION KNEE JOINT UNDER GENERAL ANESTHESIA Left 12/18/2019 Performed by Uday Sánchez MD at [facility] OR CARDIAC SURGERY CHOLECYSTECTOMY [place] postoperative KNEE REPLACEMENT KNEE SURGERY Social Hx: Social History Socioeconomic History Marital status: Spouse name: Not on file Number of children: 3 Years of education: 10 Highest education level: 10th grade Occupational History 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 Tobacco Use Smoking status: Never Smoker Smokeless tobacco: Never Used Vaping Use Vaping Use: Never used Substance and Sexual Activity Alcohol use: Not Currently Alcohol/week: 0.0 standard drinks Drug use: Never Sexual activity: Not on file Other Topics Concern Not on file Social History Narrative Not on file Allergies: Allergies Allergen Reactions Prednisone NAUSEA ONLY Lisinopril COUGH Naproxen NAUSEA ONLY PHYSICAL ASSESSMENT General: in no apparent distress, well developed and well nourished, alert, orie nted times 3, afebrile, anicteric and cooperative Head/Ears/Eyes/Nose/Throat: normal atraumatic, no neck masses, no jvd Respiratory: Clear Auscultation Cardiovascular: Regular rate and rhythm Abdomen: No Distention and No Tenderness Extremities: Warm and well perfused and No edema Neuro: alert, oriented x3, speech normal in contrext and clarity, memory intact grossly, motor strength: full proximally and distally, no involuntary movements - tremors, sensation: intact to vibration, pain, and light touch and [place] Sco re 15 Derm: Warm, dry, anicteric Musc: Normal ROM and Normal strength and tone Consult Date Consult Date Neurosurgery Internal Med 05/24 Orthopedics 05/23 Plastics Urology List Injuries Identified to Date: Noted in HPI LIST OPERATIVE & Interventional RADIOLOGICAL Procedures: Procedure(s) (LRB): OPEN TREATMENT WITH INTERNAL FIXATION OF PERIPROSTHETIC LEFT FEMUR FRACTURE (Lef t) FLUORO MOBILE IN OR Final Result CT ABD/PELV WO CONTRAST Final Result 1. No evidence of major abdominal or pelvic visceral injury or hemoperitoneum. 2. Periprosthetic proximal left femoral fracture. Finalized by Javier Tamez MD, PhD on 05/23/2021 10:47 PM. Dictated by Jacques Tamez MD, PhD on 05/23/2021 10:[address] LOWER EXTREM WO CONT LEFT Final Result 1. No evidence of major abdominal or pelvic visceral injury or hemoperitoneum. 2. Periprosthetic proximal left femoral fracture. Finalized by Javier Tamez MD, PhD on 05/23/2021 10:47 PM. Dictated by Jacques Tamez MD, PhD on 05/23/2021 10:29 PM. POC ANES US GUIDED NERVE BLOCK (Results Pending) TTS completed and radiology reviewed. No additional injuries or concerns noted. Dany Winter, DADA-GAME MANAGER [id number] * Zhanna Artis MD - 05/23/2021 7:09 PM CDT Admission History and Physical Examination Tanja Deal Admission Date: 05/23/2021 __ HPI: Tanja Deal is a 71 y.o. year old female with a PMH of hypothyroidis m, HTN, HLD, CAD, ischemic cardiology s/p CABG, T2DM, CKD, prior L hip fracture s/p arthroplasty who presents as a trauma transfer after a fall. Pt states that she was stepping over a curb when she lost her balance and tried to catch hersel f on a nearby car. She slid down the car and landed on her right hip. She did no t hit her head and denies LOC. She is only complaining of pain in her LEFT hip. Pt overall has a long surgical history. She had a prior fracture of her left hip requiring pinning in 09/2016. She additionally had a prior L knee arthroplasty in 08/2019. She had a 3-vessel CABG in 03/2016. Her only abdominal surgery is a prior laproscopic cholecystectomy. Pt had a prior stroke immediately following her open heart surgery in 2015. She is not taking any blood thinners. In regards to her diabetes, she has trajenta, and xigduo, as well as 10 units of long-acting basal insulin a day. Her last HA1 c in the system was 12.4 on 02/02/2021. L extremity XRAY from outside facility revealed a L periprosthetic femur fx. PMH: Medical History: Diagnosis Date Anxiety 03/17/2016 Arrhythmia Patient denies Arthritis Back pain Cardiac arrhythmia Chest pain Coronary artery disease Essential hypertension 03/16/2016 Fibromyalgia No current treatment required Gout Heart attack (HCC) 03/14/2016 History of non-ST elevation myocardial infarction (NSTEMI) 03/14/2016 Hyperlipidemia 03/16/2016 Hypothyroid 03/16/2016 Kidney insufficiency 07/09/19 BUN/Cr: 26/1.23 - Monitored by PCP Morbid obesity with BMI of 40.0-44.9, adult ([facility]) 03/17/2016 Neuropathy Patient denies Numbness and tingling in left hand Due to CVA Osteoarthritis Stroke ([facility]) 03/22/2016 RUE weakness Thyroid disease Type II diabetes mellitus ([facility]) 03/16/2016 Managed with metformin & glimepiride PSH: Surgical History: Procedure Laterality Date HX HEART CATHETERIZATION 03/2016 Lt Heart Cath With Ventriculogram Left 03/17/2016 Performed by Lenin Coreas MD at [facility] B[employer] CARRIAGE OPERATOR Coronary Angiography N/A 03/17/2016 Performed by Lenin Coreas MD at [facility] B[employer] M[employer] AND CARRIAGE OPERATOR BYPASS GRAFT CORONARY ARTERY, SIOBHAN, EVH N/A 03/22/2016 Performed by Demarco Byrd MD at [facility] CVOR HIP SURGERY Left 09/09/2016 L hip/ Pelvis - fracture repair ARTHROPLASTY TOTAL KNEE Left 08/28/2019 Performed by Uday Sánchez MD at [facility] OR MANIPULATION KNEE JOINT UNDER GENERAL ANESTHESIA Left 12/18/2019 Performed by Uday Sánchez MD at [facility] OR CARDIAC SURGERY CHOLECYSTECTOMY [place] postoperative KNEE REPLACEMENT KNEE SURGERY Meds: No current facility-administered medications on file prior to encounter. Current Outpatient Medications on File Prior to Encounter Medication Sig Dispense Refill acetaminophen (TYLENOL) 325 mg tablet Take two tablets by mouth four times d aily. 90 tablet 1 allopurinol (ZYLOPRIM) 300 mg tablet Take 300 mg by mouth daily. ALPRAZolam (XANAX) 1 mg tablet Take 1 mg by mouth at bedtime as needed for A nxiety. Takes 1-2 tablets nightly aspirin EC 81 mg tablet Take 1 tablet by mouth daily. Take with food. 90 tab let 3 carvediloL (COREG) 6.25 mg tablet Take one tablet by mouth twice daily. Take with food. 180 tablet 3 cholecalciferol (VITAMIN D-3) 5000 unit tablet Take 5,000 Units by mouth henri ly. colchicine 0.6 mg tablet Take 0.6 mg by mouth daily as needed. Gout ezetimibe (ZETIA) 10 mg tablet Take one tablet by mouth daily. 90 tablet 3 gabapentin (NEURONTIN) 100 mg capsule Take by mouth twice daily. 200 mg in the morning and 100 mg at bedtime glimepiride (AMARYL) 4 mg tablet Take 4 mg by mouth daily with breakfast. ipratropium/albuterol (COMBIVENT) 103/18 mcg/Actuation inhaler Inhale 2 puff s by mouth into the lungs four times daily as needed. levothyroxine (SYNTHROID) 88 mcg tablet Take 88 mcg by mouth daily. linagliptin (TRADJENTA) 5 mg tab Take 5 mg by mouth daily. Magnesium Oxide 250 mg tab Take 500 mg by mouth twice daily. meloxicam (MOBIC) 15 mg tablet Take 15 mg by mouth daily. metFORMIN (GLUCOPHAGE) 500 mg tablet Take 500 mg by mouth twice daily with m renato. OMEGA-3 FATTY ACIDS-FISH OIL PO Take 2,000 mg by mouth twice daily. omeprazole DR (PRILOSEC) 40 mg capsule Take 40 mg by mouth daily before emily kfast. oxymetazoline (AFRIN) 0.05 % nasal spray Apply 2 sprays to each nostril as d irected twice daily as needed. rosuvastatin (CRESTOR) 40 mg tablet TAKE 1 TABLET EVERY DAY 90 tablet 3 sertraline (ZOLOFT) 100 mg tablet Take 1 tablet by mouth daily. spironolactone (ALDACTONE) 25 mg tablet TAKE 1 TABLET EVERY DAY WITH FOOD 90 tablet 3 vitamins, multiple tablet Take 1 tablet by mouth daily. 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 Tobacco Use Smoking status: Never Smoker Smokeless tobacco: Never Used Vaping Use Vaping Use: Never used Substance and Sexual Activity Alcohol use: No Alcohol/week: 0.0 standard drinks Drug use: No Sexual activity: Not on file Other Topics Concern Not on file Social History Narrative Not on file FH: family history was positive for DM in her father, and negative for osteoporo sis on either side ROS: A 12 point review of system was obtained and was negative unless otherwise indicated in the HPI PE: Primary survey: Airway patent to voice, trachea midline Breath sounds equal bilaterally, equal chest rise Carotid, radial, femoral, DP palpable bilaterally, heart sounds clear GCS 15, 5/5 strength/sensation in bilateral upper and lower extremities Secondary survey: HEENT: Pupils 2 mm bilat, no skull/maxillofacial bony deformities or TTP, no sca lp lacs/abrasions, no otorrhea/rhinorrhea CHEST: no clavicular, sternal or thoracic TTP/bony deformities, bilateral axilla e clear ABD: s/nt/nd BACK: no C,T,L,S spine TTP or step-off deformities, bilateral flanks clear PELVIS: no obvious instability, perineum clear EXT: LEFT hip edema, with minimal bruising and significant tenderness to palpati on; no obvious abrasions or lacs to bilateral upper and lower extremities; full ROM of all 4 extremities, significant pain with inversion and eversion of LLE A/P: Tanja Deal is a 71 y.o. year old female with a PMH of DM, HLD, HTN, [place], ischemic cardiomyopathy s/p CABG, L hip fx, s/p L hip pinning and L arthrop lasty who presents with a L hip fx after a fall over a curb. - OK for diet today, NPO @ [place] for possible OR tomorrow - mIVF - IV pain control - Consult ortho for L hip fracture > Recommend CT LEFT Lower Extremity > Non-weight bearing of LLE - CT abd/pelvis - Medium dose sliding scale, with POC glucose 5x/daily - UA given elevated WBC (19.5) - D/W staff, Geovanny Dupont MD Principal Problem: Trauma Active Problems: Hip fracture (HCC) Zhanna Artis MD Associated attestation - Geovanny Dupont MD - 06/04/2021 10:36 AM CDT I personally interviewed and examined the patient. I have reviewed the history, physical, impression and plan as outlined by the resident and concur unless oth erwise noted. My impression and plan, which is unrelated to any procedure which may have been performed is: Ms. Deal is a 71F who was transferred from a referring facility after sustaini ng a fall. Workup at the referring facility demonstrated a left periprosthetic f emur fx. She was hemodynamically stable upon arrival. Her main complaint on exam was left hip pain. Imaging reviewed, which demonstrated the above finding. Will admit to the floor. F/up completion scans. F/up labs. Pain control for her acute pain due to trauma. Geovanny Dupont MD documented in this encounter Consult Notes * Donnell Baumann MD - 05/27/2021 11:13 AM CDT Associated Order(s): CONSULT REHABILITATION MEDICINE PHYSICIAN Physical Medicine & Rehabilitation Consult Service Date of Service: 05/27/2021 Tanja Deal is a 71 y.o.. : 1950 Financial Class: Payor: MEDICARE / Plan: MEDICARE PART A AND B / Product Type: M edicare / Date of Admission: 05/23/2021 Referring Physician: Geovanny Dupont MD Reason for Consult: evaluate for Post-Acute Rehab/Placement Precautions: Fall, left TTWB Assessment & Plan: Principal Problem: Trauma Active Problems: Type II diabetes mellitus (HCC) Essential hypertension Hypothyroid Hyperlipidemia Class 2 severe obesity due to excess calories with serious comorbidity and bod y mass index (BMI) of 37.0 to 37.9 in adult (HCC) Anxiety CKD (chronic kidney disease) stage 3, GFR 30-59 ml/min (HCC) Dyslipidemia associated with type 2 diabetes mellitus (HCC) ABLA (acute blood loss anemia) CAD (coronary artery disease) S/P CABG (coronary artery bypass graft) Ischemic cardiomyopathy Degenerative arthritis of left knee Hip fracture (HCC) Thrombocytopenia (HCC) Gait abnormality Impaired mobility/ADLs Impaired transfers Tanja Deal is a 71 y.o. year old female admitted to [facility] on 05/23/2021 with the following issues: Left hip fracture status post ORIF Impairments: pain and weakness Activity Limitations: grooming, bathing, dressing - upper, dressing - lower, to ileting, transfers and ambulation Participation Restrictions: unable to return home safely Family / Patient Dispositional Goals: return home alone Overall Functional Goals Gait and mobility mod I Transfers mod I Upper body dressing mod I Lower body dressing mod I Toileting mod I Bathing mod I Cognition / Communication Cognition grossly intact Recommendations: Post-acute care rehabilitation needs: acute inpatient rehabilitation Patient s medical complexity warrants daily physician oversight and functional goals con sistent with intensive rehabilitation in acute inpatient rehabilitation. The patient is relatively low functioning with therapies though highly motivated to continue her functional progression. Though she lives alone, she states she has plenty of family and friends who can provide consistent functional assistan ce at home. Ideally, the patient is goal-directed towards discharging home but understands that she may need to consider acute inpatient rehabilitation given h er low level functioning at this time. I would ideally like to see the patient make some significant functional progression with rehab therapies prior to consi dering acute inpatient rehab at this time, however I anticipate that she will co ntinue to make significant functional progress. Barriers/Facilitators: Barriers: High burden of care Facilitators: good family / social support and patient motivation Rehabilitation Prognosis: Good Tolerance for three hours of therapy a day: Good Prior to the inpatient rehabilitation admission complete the following: *Endurance The patient will need to be clearly able to or reasonably expected to be able to endure 3 hours of constructive therapy per day. This will need to be determined prior to considering admission to acute inpatient rehabilitation. Impaired gait/mobility/transfers: The patient will benefit from continued work with PT to address mobility deficit s Impaired ADLs: The patient will benefit from ongoing OT to address functional deficits Thank you for this consultation. Please contact the Rehab Medicine consultation service with questions or concerns. Donnell Baumann MD History of Present Illness: Hospital Course: Ms. Deal is a 71 y.o. female with PMH of hypertension, CLL wi th associated thrombocytopenia, CAD status post CABG, type 2 diabetes, CKD, hist ory of left hip fracture status post arthroplasty, history of stroke without lat e effects of weakness, presenting to [facility] on 05/23 follo wing a fall during which the patient lost her balance while stepping over a curb landing onto her right side, denying loss of consciousness or hitting her head. She was found to have a left periprosthetic femur fracture and is now status p ost ORIF of periprosthetic left femur fracture on 05/25. Medicine service was co nsulted for geriatric trauma and to help manage multiple medical comorbidities i ncluding postoperative pain, blood loss anemia, type 2 diabetes requiring insuli n therapy, CKD stage III, depression. The primary team has consulted PT and OT, and will continue working with therapi es to address functional and mobility deficits, rehab is now consulted for post- acute rehab/placement recommendations. The patient's family/social support consists of: The patient lives alone in an a partment without any steps to enter and 1 level thereafter. She was previously modified independent for home and community distance mobility using a single-poi nt cane. She states that though she lives alone she has plenty of friends or fa stefano who can provide intermittent assistance if needed. Medical History: Diagnosis Date Anxiety 03/17/2016 Arrhythmia Patient denies Arthritis Back pain Cardiac arrhythmia Chest pain Coronary artery disease Essential hypertension 03/16/2016 Fibromyalgia No current treatment required Gout Heart attack (HCC) 03/14/2016 History of non-ST elevation myocardial infarction (NSTEMI) 03/14/2016 Hyperlipidemia 03/16/2016 Hypothyroid 03/16/2016 Kidney insufficiency 07/09/19 BUN/Cr: 26/1.23 - Monitored by PCP Morbid obesity with BMI of 40.0-44.9, adult ([facility]) 03/17/2016 Neuropathy Patient denies Numbness and tingling in left hand Due to CVA Osteoarthritis Stroke ([facility]) 03/22/2016 RUE weakness Thyroid disease Type II diabetes mellitus ([facility]) 03/16/2016 Managed with metformin & glimepiride Surgical History: Procedure Laterality Date HX HEART CATHETERIZATION 03/2016 Lt Heart Cath With Ventriculogram Left 03/17/2016 Performed by Lenin Coreas MD at 2 [employer] OPERATOR Coronary Angiography N/A 03/17/2016 Performed by Lenin Coreas MD at 2 [employer] CARRIAGE OPERATOR BYPASS GRAFT CORONARY ARTERY, SIOBHAN, EVH N/A 03/22/2016 Performed by Demarco Byrd MD at [facility] CVOR HIP SURGERY Left 09/09/2016 L hip/ Pelvis - fracture repair ARTHROPLASTY TOTAL KNEE Left 08/28/2019 Performed by Uday Sánchez MD at [facility] OR MANIPULATION KNEE JOINT UNDER GENERAL ANESTHESIA Left 12/18/2019 Performed by Uday Sánchez MD at [facility] OR OPEN TREATMENT WITH INTERNAL FIXATION OF PERIPROSTHETIC LEFT FEMUR FRACTURE Left 05/25/2021 Performed by Raman Wu MD at [facility] OR CARDIAC SURGERY CHOLECYSTECTOMY [place] postoperative KNEE REPLACEMENT KNEE SURGERY Social History Socioeconomic History Marital status: Spouse name: Not on file Number of children: 3 Years of education: 10 Highest education level: 10th grade Occupational History 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 Tobacco Use Smoking status: Never Smoker Smokeless [...] Cancer Brother Hypertension Daughter Dementia Neg Hx Scheduled Meds:allopurinoL (ZYLOPRIM) tablet 300 mg, 300 mg, Oral, QDAY aspirin EC tablet 81 mg, 81 mg, Oral, QDAY carvediloL (COREG) tablet 6.25 mg, 6.25 mg, Oral, BID cholecalciferol (VITAMIN D-3) tablet 5,000 Units, 5,000 Units, Oral, QDAY enoxaparin (LOVENOX) syringe 30 mg, 30 mg, Subcutaneous, BID ezetimibe (ZETIA) tablet 10 mg, 10 mg, Oral, QDAY gabapentin (NEURONTIN) capsule 100 mg, 100 mg, Oral, BID insulin aspart (U-100) (NOVOLOG FLEXPEN U-100 INSULIN) injection PEN 0-12 Units, 0-12 Units, Subcutaneous, 5 X Daily insulin aspart (U-100) (NOVOLOG FLEXPEN U-100 INSULIN) injection PEN 4 Units, 4 Units, Subcutaneous, TID w/ meals insulin glargine (LANTUS SOLOSTAR U-100 INSULIN) injection PEN 12 Units, 12 Unit s, Subcutaneous, QHS(22) levothyroxine (SYNTHROID) tablet 88 mcg, 88 mcg, Oral, QDAY melatonin (MELATIN) tablet 3 mg, 3 mg, Oral, QHS milk of magnesia (CONC) oral suspension 10 mL, 10 mL, Oral, QDAY pantoprazole DR (PROTONIX) tablet 40 mg, 40 mg, Oral, QDAY(21) polyethylene glycol 3350 (MIRALAX) packet 17 g, 1 packet, Oral, BID rosuvastatin (CRESTOR) tablet 40 mg, 40 mg, Oral, QDAY senna/docusate (SENOKOT-S) tablet 2 tablet, 2 tablet, Oral, BID sertraline (ZOLOFT) tablet 100 mg, 100 mg, Oral, QDAY Continuous Infusions: PRN and Respiratory Meds:albuterol 0.083% Q4H PRN, ALPRAZolam BID PRN, colchicin e QDAY PRN, HYDROcodone/acetaminophen Q4H PRN, ondansetron (ZOFRAN) IV Q6H PRN Allergies Allergen Reactions Prednisone NAUSEA ONLY Lisinopril COUGH Naproxen NAUSEA ONLY Home Environment: Home Situation: Lives Alone (05/26/2021 2:00 PM) Patient Owned Equipment: Single Point Cane (05/26/2021 2:00 PM) Type of Home: Apartment (05/26/2021 2:00 PM) Entry Stairs: No Stairs (05/26/2021 2:00 PM) In-Home Stairs: No Stairs (05/26/2021 2:00 PM) Comments: Patient lives alone in apartment. Able to have assist from friends/fam renetta as needed. Walk in shower with bench, grab bars in shower and around toilet. Reports this is the only fall, tripping stepping up curbstep. Uses cane at base line and was independent/driving. (05/26/2021 2:00 PM) No data recorded @ADDRESSFULL@ Current Level Of Function: PT Gait: Bed Mobility/Transfers Bed Mobility: Supine to Sit: Minimal Assist Bed Mobility: Sit to Supine: Moderate Assist Transfer Type: Sit to/from Stand Transfer: Assistance Level: From, Bed, To, Commode, Maximal Assist Transfer: Assistive Device: Roller Walker Transfers: Type Of Assistance: Verbal Cues, For Balance, For Strength Deficit, F or Safety Considerations Other Transfer Type: Sit to/from Stand Other Transfer: Assistance Level: From, Commode, To, Bed, Maximal Assist, x2 Peo ple Other Transfer: Assistive Device: Roller Walker Other Transfer: Type Of Assistance: Verbal Cues, For Balance, For Strength Defic it, For Safety Considerations End Of Activity Status: In Bed, Nursing Notified, Instructed Patient to Request Assist with Mobility, Instructed Patient to Use Call Light Comments: pt extremely anxious and demo'd difficulty breathing, RN immediatly no tified, O2sat 94% on RA, patient pale initially but color returned with cueing f or deep breathing, weezing breathing for approx 1/2 min with stand pivot transfe r and toileting. OT ADL's Where Assessed: Supine, Bed (bedside commode) LE Dressing Assist: Maximum Assist LE Dressing Deficits: Don/Doff R Sock, Don/Doff L Sock Toileting Assist: Maximum Assist Toileting Deficits: Supervision/Safety, Increased Time To Complete, Use of Bedpa n/Urinal Setup, Bedside Commode, Perineal Hygiene Comment: Pt. transferred to [facility] and reported she needed to immediately go to the bathroom. Bedpan was place and patient urinated in bed jain. Pt. then requested to transfer to bedside commode to complete bowel movement. Pt. required MOD assi st x2 to transfer to bedside commode and MOD assist to complete manny-care. 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 Gen: Alert & Oriented X 3 HEENT: EOMI Neck: Supple, Heart: Extremities well perfused Lungs: non labored breathing Abdomen: Soft, non-tender, non-distended, obese Skin: no gross lesions appreciated Ext: No significant edema bilaterally MS: Root Right Left Shoulder Abduction C5 5 5 Elbow Flexion C5 5 5 Elbow Extension C7 5 5 Wrist Extension C6 5 5 Finger Flexion C8 5 5 Finger Abduction T1 5 5 Hip Flexion L2 4 - Knee Flexion L5/S1 5 4 Knee Extension L3 5 4 Dorsiflexion L4 5 4 Plantarflexion S1 5 5 Neuro: Cranial Nerves Cranial Nerves 2-12 are grossly intact DTR's 1+ throughout Upper Extremity Sensation Intact to light touch bilaterally Lower Extremity Sensation Intact to light touch bilaterally Memory/Cognition/Speech Within limits Intake/Output Summary (Last 24 hours) at 05/27/2021 1114 Last data filed at 05/27/2021 1112 Gross per 24 hour Intake 1149 ml Output 1109 ml Net 40 ml Hematology: Lab Results Component Value Date HGB 6.6 05/27/2021 HCT 20.1 05/27/2021 PLTCT 93 05/27/2021 WBC 13.8 05/27/2021 NEUT 33 02/02/2021 ANC 5.29 02/02/2021 ALC 9.99 02/02/2021 DANII 3 02/02/2021 AMC 0.42 02/02/2021 ABC 0.07 02/02/2021 MCV 96.5 05/27/2021 MCHC 32.9 05/27/2021 MPV 9.4 05/27/2021 RDW 17.9 05/27/2021 , Coagulation: Lab Results Component Value Date PTT 27.8 12/05/2019 INR 1.0 12/05/2019 and General Chemistry: Lab Results Component Value Date NA 135 05/27/2021 K 4.2 05/27/2021 CL 102 05/27/2021 GAP 4 05/27/2021 BUN 25 05/27/2021 CR 1.28 05/27/2021 GLU 245 05/27/2021 CA 7.9 05/27/2021 ALBUMIN 2.9 05/27/2021 MG 1.9 05/27/2021 TOTBILI 0.4 05/27/2021 Radiology: Reviewed Donnell Baumann MD * Sebastián Marley MD - 05/24/2021 2:24 PM CDT Associated Order(s): CONSULT INTERNAL MEDICINE PHYSICIAN General Consult Note Admission Date: 05/23/2021 LOS: 1 day Reason for Consult: Geriatric trauma Consult type: Opinion with orders Assessment/Plan 71-year-old woman with past medical history of HTN, CAD s/p CABG 2015, CVA, CKD stage III, obesity left hip replacement and left TKR 03/2021 presented as a traum a transfer after a ground-level fall with a left periprosthetic femur fracture Left hip periprosthetic fracture secondary to fall Orthopedics is planning OR on 05/25, keep n.p.o. past midnight Continue Tylenol ATC and oxycodone as needed for severe pain continue Lovenox for VTE prophylaxis CAD status post CABG 2016 Diastolic cardiomyopathy Patient denies chest pain with minimal exertion, she has no overt signs of heart failure Echo 01/2021 showed LVEF 50 to 55%, grade 1 diastolic dysfunction NM stress test 01/2021 reported low risk for induced reversible ischemia Resume aspirin, continue carvedilol 6.25 mg twice daily and rosuvastatin 40 mg d aily Resume Zetia, patient will need n.p.o. 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 Combivent hypothyroidism, continue levoth yroxine 88 mcg daily Obesity class II with a BMI 37.6, patient reported she is already working on [employer] ght loss by restricting calories Gout, continue colchicine Mood disorder, depression, continue Zoloft milligrams daily Discussed with patient and her daughter who was present at bedside about nonurge nt DEXA scan and polysomnography in the future DVT prophylaxis: Lovenox Disposition: Patient will need additional hospitalization to address medical iss ues mentioned in assessment and plan, schedule for OR on 05/25, patient is hopefu l to return home at discharge History of Present Illness: Tanja Deal is a 71 y.o. female with past med ical history of hypertension, CAD status post CABG 2015, CVA with left-sided wea barb, CKD stage III, obesity, left hip replacement & left TKR 03/2021 presented as a trauma transfer after ground-level fall with a left periprosthetic femur fracture. Patient stated that she fell after getting out of car and discharging the curb, denies postural dizziness or syncope prior to the fall. Patient reports no chest pain with minimal exertion, had stress test and echo by cardiology prior to her hip and knee replacement in March this year. Medicine team is consulted for comorbidity management, during my visit patient stated that no pain at rest however severe pain in posterior left leg Medical History: Diagnosis Date Anxiety 03/17/2016 Arrhythmia Patient denies Arthritis Back pain Cardiac arrhythmia Chest pain Coronary artery disease Essential hypertension 03/16/2016 Fibromyalgia No current treatment required Gout Heart attack (HCC) 03/14/2016 History of non-ST elevation myocardial infarction (NSTEMI) 03/14/2016 Hyperlipidemia 03/16/2016 Hypothyroid 03/16/2016 Kidney insufficiency 07/09/19 BUN/Cr: 26/1.23 - Monitored by PCP Morbid obesity with BMI of 40.0-44.9, adult ([facility]) 03/17/2016 Neuropathy Patient denies Numbness and tingling in left hand Due to CVA Osteoarthritis Stroke ([facility]) 03/22/2016 RUE weakness Thyroid disease Type II diabetes mellitus ([facility]) 03/16/2016 Managed with metformin & glimepiride Surgical History: Procedure Laterality Date HX HEART CATHETERIZATION 03/2016 Lt Heart Cath With Ventriculogram Left 03/17/2016 Performed by Lenin Coreas MD at 2 [employer] CARRIAGE OPERATOR Coronary Angiography N/A 03/17/2016 Performed by Lenin Coreas MD at 2 [employer]RI[employer] OPERATOR BYPASS GRAFT CORONARY ARTERY, SIOBHAN, EVH N/A 03/22/2016 Performed by Demarco Byrd MD at 3 CVOR HIP SURGERY Left 09/09/2016 L hip/ Pelvis - fracture repair ARTHROPLASTY TOTAL KNEE Left 08/28/2019 Performed by Uday Sánchez MD at [facility] OR MANIPULATION KNEE JOINT UNDER GENERAL ANESTHESIA Left 12/18/2019 Performed by Uday Sánchez MD at [facility] OR CARDIAC SURGERY CHOLECYSTECTOMY 16 [place] postoperative KNEE REPLACEMENT KNEE SURGERY Social History Socioeconomic History Marital status: Spouse name: Not on file Number of children: 3 Years of education: 10 Highest education level: 10th grade Occupational History 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 Tobacco Use Smoking status: Never Smoker Smokeless tobacco: Never Used Vaping Use Vaping Use: Never used Substance and Sexual Activity Alcohol use: Not Currently Alcohol/week: 0.0 standard drinks Drug use: Never Sexual activity: Not on file Other Topics Concern Not on file Social History Narrative Not on file Social Determinants of Health Financial Resource Strain: Difficulty of Paying Living Expenses: Food Insecurity: Worried About Running Out of Food in the Last Year: Ran Out of Food in the Last Year: Transportation Needs: Lack of Transportation (Medical): Lack of Transportation (Non-Medical): Physical Activity: Days of Exercise per Week: Minutes of Exercise per Session: Stress: Feeling of Stress : Social Connections: Frequency of Communication with Friends and Family: Frequency of Social Gatherings with Friends and Family: Attends Hinduism Services: Active Member of Clubs or Organizations: Attends Club or Organization Meetings: Marital Status: Intimate Partner Violence: Fear of Current or Ex-Partner: Emotionally Abused: Physically Abused: Sexually Abused: Vaping/E-liquid Use Vaping Use Never User Family history reviewed; non-contributory Allergies: Prednisone, Lisinopril, and Naproxen Scheduled Meds:allopurinoL (ZYLOPRIM) tablet 300 mg, 300 mg, Oral, QDAY carvediloL (COREG) tablet 6.25 mg, 6.25 mg, Oral, BID enoxaparin (LOVENOX) syringe 30 mg, 30 mg, Subcutaneous, BID gabapentin (NEURONTIN) capsule 100 mg, 100 mg, Oral, BID insulin aspart (U-100) (NOVOLOG FLEXPEN U-100 INSULIN) injection PEN 0-12 Units, 0-12 Units, Subcutaneous, 5 X Daily levothyroxine (SYNTHROID) tablet 88 mcg, 88 mcg, Oral, QDAY pantoprazole DR (PROTONIX) tablet 40 mg, 40 mg, Oral, QDAY(21) polyethylene glycol 3350 (MIRALAX) packet 17 g, 1 packet, Oral, QDAY rosuvastatin (CRESTOR) tablet 40 mg, 40 mg, Oral, QDAY senna/docusate (SENOKOT-S) tablet 1 tablet, 1 tablet, Oral, BID Continuous Infusions: lactated ringers infusion 100 mL/hr at 05/24/21 0915 PRN and Respiratory Meds:acetaminophen Q4H PRN, albuterol 0.083% Q4H PRN, colchi cine QDAY PRN, fentaNYL citrate PF Q1H PRN, ondansetron (ZOFRAN) IV Q6H PRN, oxy CODONE Q4H PRN Review of Systems: All other systems reviewed and are negative. Vital Signs: Last Filed in 24 hours Vital Signs: 24 hour Range BP: 130/54 (05/24 1408) Temp: 36.9 C (98.5 F) (05/24 140) Pulse: 70 (05/24 140) Respirations: 16 PER MINUTE (05/24 140) SpO2: 94 % (05/24 140) Height: 154.9 cm (61") (05/23 1847) BP: (112-145)/(40-65) Temp: [36.8 C (98.2 F)-37.1 C (98.7 F)] Pulse: [70-83] Respirations: [15 PER MINUTE-18 PER MINUTE] SpO2: [94 %-97 %] Physical Exam: General: Alert, cooperative, no distress, appears stated age Neck: Supple, symmetrical, trachea midline, no adenopathy, thyroid: no enlarg ement/tenderness/nodules, no carotid bruit and no JVD Lungs: Clear to auscultation bilaterally Heart: Regular rate and rhythm, S1, S2 normal, no murmur, click rub or gallop Abdomen: Soft, non-tender. Bowel sounds normal. No masses. No organomegaly. Extremities: Extremities normal, atraumatic, no cyanosis or edema Skin: Skin color, texture, turgor normal. No rashes or lesions Neurologic: CNII - XII intact. Normal strength, sensation and reflexes throug hout. Psych: Normal Lab/Radiology/Other Diagnostic Tests: 24-hour labs: Results for orders placed or performed during the hospital encounter of 05/23/21 (from the past 24 hour(s)) CBC Collection Time: 05/23/21 8:45 PM Result Value Ref Range White Blood Cells 19.5 (H) 4.5 - 11.0 K/UL RBC 3.94 (L) 4.0 - 5.0 M/UL Hemoglobin 12.5 12.0 - 15.0 GM/DL Hematocrit 38.7 36 - 45 % MCV 98.2 80 - 100 FL MCH 31.7 26 - 34 PG MCHC 32.3 32.0 - 36.0 G/DL RDW 18.2 (H) 11 - 15 % Platelet Count 127 (L) 150 - 400 K/UL MPV 9.4 7 - 11 FL COMPREHENSIVE METABOLIC PANEL Collection Time: 05/23/21 8:45 PM Result Value Ref Range Sodium 141 137 - 147 MMOL/L Potassium 4.6 3.5 - 5.1 MMOL/L Chloride 106 98 - 110 MMOL/L Glucose 131 (H) 70 - 100 MG/DL Blood Urea Nitrogen 23 7 - 25 MG/DL Creatinine 1.23 (H) 0.4 - 1.00 MG/DL Calcium 8.9 8.5 - 10.6 MG/DL Total Protein 6.1 6.0 - 8.0 G/DL Total Bilirubin 0.6 0.3 - 1.2 MG/DL Albumin 3.8 3.5 - 5.0 G/DL Alk Phosphatase 64 25 - 110 U/L AST (SGOT) 29 7 - 40 U/L CO2 25 21 - 30 MMOL/L ALT (SGPT) 19 7 - 56 U/L Anion Gap 10 3 - 12 eGFR Non 43 (L) >60 mL/min eGFR 52 (L) >60 mL/min MAGNESIUM Collection Time: 05/23/21 8:45 PM Result Value Ref Range Magnesium 2.0 1.6 - 2.6 mg/dL PHOSPHORUS Collection Time: 05/23/21 8:45 PM Result Value Ref Range Phosphorus 4.0 2.0 - 4.5 MG/DL POC GLUCOSE Collection Time: 05/23/21 9:04 PM Result Value Ref Range Glucose, POC 131 (H) 70 - 100 MG/DL URINALYSIS DIPSTICK REFLEX TO CULTURE Collection Time: 05/23/21 10:45 PM Specimen: Urine Result Value Ref Range Color,UA YELLOW Turbidity,UA 1+ (A) CLEAR-CLEAR Specific [place]-Urine 1.028 1.003 - 1.035 pH,UA 5.0 5.0 - 8.0 Protein,UA NEG NEG-NEG Glucose,UA 3+ (A) NEG-NEG Ketones,UA TRACE (A) NEG-NEG Bilirubin,UA NEG NEG-NEG Blood,UA 1+ (A) NEG-NEG Urobilinogen,UA NORMAL NORM-NORMAL Nitrite,UA NEG NEG-NEG Leukocytes,UA NEG NEG-NEG Urine Ascorbic Acid, UA NEG NEG-NEG URINALYSIS MICROSCOPIC REFLEX TO CULTURE Collection Time: 05/23/21 10:45 PM Specimen: Urine Result Value Ref Range WBCs,UA 0-2 0 - 2 /HPF RBCs,UA 2-10 0 - 3 /HPF Comment,UA Criteria for reflex to culture are WBC>10, Positive Nitrite, and/or >=+1 leukocytes. If quantity is not sufficient, an addendum will follow. MucousUA TRACE UA REFLEX LABEL Collection Time: 05/23/21 10:45 PM Specimen: Urine Result Value Ref Range UA Reflex Culture Criteria for reflex to culture are WBC>10, Positive Nitrite, and/or >=+1 leukocytes. If quantity is not sufficient, an addendum will follow. POC GLUCOSE Collection Time: 05/24/21 3:11 AM Result Value Ref Range Glucose, POC 178 (H) 70 - 100 MG/DL CBC Collection Time: 05/24/21 5:51 AM Result Value Ref Range White Blood Cells 20.8 (H) 4.5 - 11.0 K/UL RBC 3.71 (L) 4.0 - 5.0 M/UL Hemoglobin 11.6 (L) 12.0 - 15.0 GM/DL Hematocrit 36.2 36 - 45 % MCV 97.7 80 - 100 FL MCH 31.4 26 - 34 PG MCHC 32.1 32.0 - 36.0 G/DL RDW 18.2 (H) 11 - 15 % Platelet Count 121 (L) 150 - 400 K/UL MPV 9.3 7 - 11 FL COMPREHENSIVE METABOLIC PANEL Collection Time: 05/24/21 5:51 AM Result Value Ref Range Sodium 140 137 - 147 MMOL/L Potassium 4.3 3.5 - 5.1 MMOL/L Chloride 104 98 - 110 MMOL/L Glucose 170 (H) 70 - 100 MG/DL Blood Urea Nitrogen 27 (H) 7 - 25 MG/DL Creatinine 1.37 (H) 0.4 - 1.00 MG/DL Calcium 9.1 8.5 - 10.6 MG/DL Total Protein 5.8 (L) 6.0 - 8.0 G/DL Total Bilirubin 0.5 0.3 - 1.2 MG/DL Albumin 3.6 3.5 - 5.0 G/DL Alk Phosphatase 67 25 - 110 U/L AST (SGOT) 28 7 - 40 U/L CO2 28 21 - 30 MMOL/L ALT (SGPT) 17 7 - 56 U/L Anion Gap 8 3 - 12 eGFR Non 38 (L) >60 mL/min eGFR 46 (L) >60 mL/min MAGNESIUM Collection Time: 08/16/21 5:51 AM Result Value Ref Range Magnesium 2.0 1.6 - 2.6 mg/dL PHOSPHORUS Collection Time: 05/24/21 5:51 AM Result Value Ref Range Phosphorus 4.9 (H) 2.0 - 4.5 MG/DL HEMOGLOBIN A1C Collection Time: 05/24/21 5:51 AM Result Value Ref Range Hemoglobin A1C 8.1 (H) 4.0 - 6.0 % POC GLUCOSE Collection Time: 05/24/21 8:23 AM Result Value Ref Range Glucose, POC 175 (H) 70 - 100 MG/DL TYPE & CROSSMATCH Collection Time: 05/24/21 10:21 AM Result Value Ref Range Units Ordered 2 Crossmatch Expires 05/27/2021,2359 Record Check FOUND ABO/RH(D) A POS Antibody Screen NEG Electronic Crossmatch YES POC GLUCOSE Collection Time: 05/24/21 11:54 AM Result Value Ref Range Glucose, POC 169 (H) 70 - 100 MG/DL POC GLUCOSE Collection Time: 05/24/21 5:01 PM Result Value Ref Range Glucose, POC 260 (H) 70 - 100 MG/DL Pertinent radiology reviewed. Sebastián Marley MD Pager: [phone] * Eduin Barron MD - 05/23/2021 9:15 PM CDT Associated Order(s): CONSULT ORTHOPEDIC SURGERY PHYSICIAN [facility] Consult Note Admission Date: 05/23/2021 Chief Complaint/Reason for Consult: Left periprosthetic femur fracture Assessment/Plan Tanja Deal is a 71 y.o. female with past medical histor y of hypertension, ischemic cardiomyopathy status post CABG, who presented as a trauma transfer after ground-level fall with a left periprosthetic femur fractur e. -Patient needs to be nonweightbearing of left lower extremity. No acute inventi on at this time. Patient can have a diet from our standpoint today. Please joey p her n.p.o. at midnight for possible operative intervention tomorrow, however t his is unlikely. Her operative intervention will likely be later in the week. We will discuss with joint staff for definitive treatment. -Antibiotics / Tetanus - per primary -Pain Control - per primary -Diet - per primary -DVT PPX - Mechanical, Chemoprophylaxis - per primary Patient discussed with staff surgeon Dr. Sánchez. During normal business hours, please contact Markus Swanson. At all other times , contact the orthopedic surgery resident acetaldehyde converter operator for any questions or concerns. History of Present Illness: Tanja Deal is a 71 y.o. female with past med ical history of hypertension, ischemic cardiomyopathy status post CABG, who pres ented as a trauma transfer after ground-level fall with a left periprosthetic fe mur fracture. Patient had a left total hip replaced length in March 2021. She h ad a femoral head fracture in 2015 which was fixed with screws, she ended up req uiring a hip replacement this year. She was stepping over a curb today when she lost her balance and fell. Denies hitting head. Denies loss of consciousness. Denies pain in any other extremity. Medical History: Diagnosis Date Anxiety 03/17/2016 Arrhythmia Patient denies Arthritis Back pain Cardiac arrhythmia Chest pain Coronary artery disease Essential hypertension 03/16/2016 Fibromyalgia No current treatment required Gout Heart attack (HCC) 03/14/2016 History of non-ST elevation myocardial infarction (NSTEMI) 03/14/2016 Hyperlipidemia 03/16/2016 Hypothyroid 03/16/2016 Kidney insufficiency 07/09/19 BUN/Cr: 26/1.23 - Monitored by PCP Morbid obesity with BMI of 40.0-44.9, adult ([facility]) 03/17/2016 Neuropathy Patient denies Numbness and tingling in left hand Due to CVA Osteoarthritis Stroke (HCC) 03/22/2016 RUE weakness Thyroid disease Type II diabetes mellitus ([facility]) 03/16/2016 Managed with metformin & glimepiride Surgical History: Procedure Laterality Date HX HEART CATHETERIZATION 03/2016 Lt Heart Cath With Ventriculogram Left 03/17/2016 Performed by Lenin Coreas MD at [facility] [employer] CARRIAGE OPERATOR Coronary Angiography N/A 03/17/2016 Performed by Lenin Coreas MD at [facility] [employer] M[employer] AND CARRIAGE OPERATOR BYPASS GRAFT CORONARY ARTERY, SIOBHAN, EVH N/A 03/22/2016 Performed by Demarco Byrd MD at [facility] CVOR HIP SURGERY Left 09/09/2016 L hip/ Pelvis - fracture repair ARTHROPLASTY TOTAL KNEE Left 08/28/2019 Performed by Uday Sánchez MD at [facility] OR MANIPULATION KNEE JOINT UNDER GENERAL ANESTHESIA Left 12/18/2019 Performed by Uday Sánchez MD at [facility] OR CARDIAC SURGERY CHOLECYSTECTOMY [place] postoperative KNEE REPLACEMENT KNEE SURGERY Social History Tobacco Use Smoking status: Never Smoker Smokeless tobacco: Never Used Vaping Use Vaping Use: Never used Substance Use Topics Alcohol use: No Alcohol/week: 0.0 standard drinks Drug use: No Family History Problem Relation Age of Onset Heart Attack Mother Heart Attack Father Hypertension Father Arthritis Father Diabetes Father Cancer Sister Cancer Brother Hypertension Daughter Dementia Neg Hx Allergies: Prednisone, Lisinopril, and Naproxen Outpatient Medications as of 05/23/2021 Medication Sig Dispense Refill allopurinol (ZYLOPRIM) 300 mg tablet Take 300 mg by mouth daily. ALPRAZolam (XANAX) 1 mg tablet Take 1 mg by mouth at bedtime as needed for A nxiety. Takes 1-2 tablets nightly aspirin EC 81 mg tablet Take 1 tablet by mouth daily. Take with food. 90 tab let 3 carvediloL (COREG) 6.25 mg tablet Take one tablet by mouth twice daily. Take with food. 180 tablet 3 cholecalciferol (VITAMIN D-3) 5000 unit tablet Take 5,000 Units by mouth henri ly. colchicine 0.6 mg tablet Take 0.6 mg by mouth daily as needed. Gout ezetimibe (ZETIA) 10 mg tablet Take one tablet by mouth daily. 90 tablet 3 gabapentin (NEURONTIN) 100 mg capsule Take by mouth twice daily. 200 mg in the morning and 100 mg at bedtime ipratropium/albuterol (COMBIVENT) 103/18 mcg/Actuation inhaler Inhale 2 puff s by mouth into the lungs four times daily as needed. levothyroxine (SYNTHROID) 88 mcg tablet Take 88 mcg by mouth daily. linagliptin (TRADJENTA) 5 mg tab Take 5 mg by mouth daily. Magnesium Oxide 250 mg tab Take 500 mg by mouth twice daily. meloxicam (MOBIC) 15 mg tablet Take 15 mg by mouth daily. OMEGA-3 FATTY ACIDS-FISH OIL PO Take 2,000 mg by mouth twice daily. omeprazole DR (PRILOSEC) 40 mg capsule Take 40 mg by mouth daily before emily kfast. oxymetazoline (AFRIN) 0.05 % nasal spray Apply 2 sprays to each nostril as d irected twice daily as needed. rosuvastatin (CRESTOR) 40 mg tablet TAKE 1 TABLET EVERY DAY 90 tablet 3 sertraline (ZOLOFT) 100 mg tablet Take 1 tablet by mouth daily. spironolactone (ALDACTONE) 25 mg tablet TAKE 1 TABLET EVERY DAY WITH FOOD 90 tablet 3 vitamins, multiple tablet Take 1 tablet by mouth daily. Review of Systems: 10 Point Review of Systems Obtained. Pertinent items noted in HPI. Pos -left hip pain Neg-pain in any other extremity Vital Signs: Last Filed in 24 hours BP: 112/49 (05/23 2103) Temp: 36.8 C (98.2 F) (05/23 2103) Pulse: 73 (05/23 2103) Respirations: 15 PER MINUTE (05/23 2103) SpO2: 94 % (05/23 2103) Height: 154.9 cm (61") (05/23 1847) Physical Exam: Constitutional: Alert, NAD HEENT: Normocephalic, no scleral icterus Respiratory: Unlabored respirations on RA Cardiovascular: Regular rate Abdomen: Nondistended, NTTP Lymph: No significant lymphedema, no lymphadenopathy of affected extremity Skin: Normal Turgor Musculoskeletal: LLE: Significantly tender to palpation over left hip, previous surgical incision and anterior hip, intact and well-healed, no erythema. Mild bruising over left lateral hip but otherwise no evidence of skin breakdown to suggest an open frac ture. NVI distally, TA/GS, EHL/FHL intact. SILT in DP/SP/Tib/Kaela/Saph distribu tions, DP/PT palpable, Cap refill < 2 sec, soft compartments. Neurologic: Grossly intact, No focal deficits noted unless listed above Lab/Radiology/Other Diagnostic Tests: CBC w/Diff Lab Results Component Value Date/Time WBC 16.0 (H) 02/02/2021 01:39 PM HGB 12.4 02/02/2021 01:39 PM HCT 37.8 02/02/2021 01:39 PM PLTCT 146 (L) 02/02/2021 01:39 PM Inflammatory Markers Lab Results Component Value Date/Time ESR 17 02/02/2021 01:39 PM CRP 0.12 02/02/2021 01:39 PM Basic Metabolic Profile Lab Results Component Value Date/Time NA 142 07/21/2020 12:00 AM K 4.4 07/21/2020 12:00 AM CL 104 07/21/2020 12:00 AM CO2 29 07/21/2020 12:00 AM GAP 10 12/05/2019 02:45 PM BUN 27 (H) 07/21/2020 12:00 AM CR 1.30 (H) 07/21/2020 12:00 AM GLU 190 (H) 07/21/2020 12:00 AM Coagulation Studies Lab Results Component Value Date/Time PTT 27.8 12/05/2019 02:45 PM INR 1.0 12/05/2019 02:45 PM Radiology: No results found. Eduin Barron MD [phone] documented in this encounter Miscellaneous Notes * Case Mgmt DC Plan - Evette Rubio LMSW - 06/01/2021 10:04 AM CDT Case Management Progress Note NAME:Tanja Wang "Freda" Say :1950 AGE: 71 y.o. ADMISSION DATE: 05/23/2021 DAYS ADMITTED: LOS: 9 days Todays Date: 06/01/2021 Plan Discharge to [facility] today at 12:30. Interventions Support Info or Referral Discharge Planning Discharge Planning: Inpatient Rehabilitation SW received notification pt is medically stable to discharge today. Pt has been accepted to [facility]. ZACKARY messaged [facility] admissions team, [facility] ZACKARY notified team and bedside RN. 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 Pt going to room 2228. RN report . Medication Needs Financial Legal Other Disposition Expected Discharge Date 06/01/2021 1:00 PM Transportation Does the Patient Need Case Management to Arrange Discharge Transport? (ex: faci lity, ambulance, wheelchair/stretcher, Medicaid, cab, other): Yes Type of Transport: Stretcher van Will the Patient Use Family Transport?: No Next Level of Care (Acute Psych discharges only) Discharge Disposition Selected Continued Care - Admitted Since 05/23/2021 No services have been selected for the patient. Evette Rubio LMSW Supervisor [employer] Workers Desk: [phone] Pager: [phone] * Case Mgmt DC Plan - Marilee Contreras, RN - 06/01/2021 9:40 AM CDT 0906: Notified by Evette AGUERO) that patient is medically stable to tn today. Mati morillo medically review and follow up per updates. 0925: Per chart review, the patient continues to have goals to warrant an inpati ent rehab admission and is medically clear for an admission today. Will notify S W and plan for admission to [facility] today. 1024: Notified Evette (ZACKARY) that rehab able to admit today. Transportation w ill be scheduled for 1230 via stretcher van with [facility] [employer]. SW to noti fy patient's primary RN of discharge time, rehab bed assignment of 8 and u nit phone# for report (). Please leave in any functioning IV access for tr ansition to 's IP rehab unit. 1146: Provided patient's daughter, Lynette, with [facility] telephone conversation Information included: members of the interdisc iplinary team, therapy scheduling, team conference, RN to patient ration, daily physician rounds, fall prevention, appropriate clothing to have, family training , restricted visiting policy due to COVID-19 and parking for visitors. The follo wing information was obtained from Lynette. Preferred Name to be Addressed by: Freda Barba denied any further questions. Patient is agreeable to an admission at 's IP rehab facility. TIA Pinedo, RN Inpatient Rehab Admission Nurse (office: [phone] or voalte: [phone]) TIA Gardiner, RN * Care Plan - Ines Pickett RN - 05/31/2021 6:11 PM CDT Problem: Discharge Planning Goal: Participation in plan of care Outcome: Goal Ongoing Goal: Knowledge regarding plan of care Outcome: Goal Ongoing Goal: Prepared for discharge Outcome: Goal Ongoing Problem: Infection, Risk of, Urinary Catheter-Associated Urinary Tract Infection Goal: Absence of urinary catheter-associated infection Outcome: Goal Ongoing Problem: Moderate Fall Risk Goal: Moderate Fall Risk Outcome: Goal Ongoing Problem: Pain Goal: Management of pain Outcome: Goal Ongoing Goal: Knowledge of pain management Outcome: Goal Ongoing Goal: Progress Toward Pain Management Goals Outcome: Goal Ongoing Problem: Infection, Risk of, Surgical Site Infection Goal: Absence of surgical site infection Outcome: Goal Ongoing Problem: Self-Care Deficit Goal: Maximize ADL functioning Outcome: Goal Ongoing Problem: Mobility/Activity Intolerance Goal: Maximize functional ADL's and mobility outcomes Outcome: Goal Ongoing * Case Mgmt DC Plan - Le Canales - 05/31/2021 12:29 PM CDT Case Management Progress Note NAME:Tanja Deal (Dee) :1950 AGE: 71 y.o. ADMISSION DATE: 05/23/2021 DAYS ADMITTED: LOS: 8 days Todays Date: 05/31/2021 Plan SW reviewed EMR regarding POC and d/c planning. Pt is stable for progression of care. SW touched base with [facility] admissions team, and they will need a follow up w [facility] rehab d/t pt being low level. If [facility] can accept, they anticipate a bed po ssibly tomorrow 06/01. 4:38p Rehab Medicine identified significant improvement, and considers pt to be a candidate. SW to follow up with [facility] admissions team regarding when they will have an available bed. SW updated pt directly by phone so that she knew that she is likely transferring tomorrow. Interventions Support Pt lives alone in a single story apartment with zero step entry; she does have a vailability of friends and family to assist intermittently. Pt was independent prior to this admission. Info or Referral Discharge Planning Pt is medically stable for progression of care. She prefers to d/c to [facility] , however is pending [facility] rehab medicine consult. [facility] (reviewing, clinically accepted pending a bed tomorrow) [address] [facility] [place] [address] Medication Needs Financial Legal Other Disposition Expected Discharge Date 06/01/2021 1:00 PM Transportation Does the Patient Need Case Management to Arrange Discharge Transport? (ex: faci lity, ambulance, wheelchair/stretcher, Medicaid, cab, other): No Will the Patient Use Family Transport?: Yes Next Level of Care (Acute Psych discharges only) Discharge Disposition Selected Continued Care - Admitted Since 05/23/2021 No services have been selected for the patient. [facility] * Case Mgmt DC Plan - Jasmine Torres RN - 05/31/2021 11:31 AM CDT Notified by Le (ZACKARY) that patient is ready for discharge. Informed ZACKARY that [facility] needs f/u from rehab consult team. Informed ZACKARY that anticipate possible be d Monday if deemed appropriate. TIA Mathews RN Inpatient Rehab Admission Nurse (office: [phone] or [facility]) * Care Plan - Kaylie Henry RN - 05/31/2021 4:03 AM CDT Problem: Discharge Planning Goal: Participation in plan of care Outcome: Goal Ongoing Goal: Knowledge regarding plan of care Outcome: Goal Ongoing Goal: Prepared for discharge Outcome: Goal Ongoing Problem: Infection, Risk of, Urinary Catheter-Associated Urinary Tract Infection Goal: Absence of urinary catheter-associated infection Outcome: Goal Ongoing Problem: Moderate Fall Risk Goal: Moderate Fall Risk Outcome: Goal Ongoing Problem: Pain Goal: Management of pain Outcome: Goal Ongoing Goal: Knowledge of pain management Outcome: Goal Ongoing Goal: Progress Toward Pain Management Goals Outcome: Goal Ongoing Problem: Infection, Risk of, Surgical Site Infection Goal: Absence of surgical site infection Outcome: Goal Ongoing Problem: Self-Care Deficit Goal: Maximize ADL functioning Outcome: Goal Ongoing Problem: Mobility/Activity Intolerance Goal: Maximize functional ADL's and mobility outcomes Outcome: Goal Ongoing * Care Plan - Ines Pickett RN - 05/30/2021 5:33 PM CDT Problem: Discharge Planning Goal: Participation in plan of care Outcome: Goal Ongoing Goal: Knowledge regarding plan of care Outcome: Goal Ongoing Goal: Prepared for discharge Outcome: Goal Ongoing Problem: Infection, Risk of, Urinary Catheter-Associated Urinary Tract Infection Goal: Absence of urinary catheter-associated infection Outcome: Goal Ongoing Problem: Moderate Fall Risk Goal: Moderate Fall Risk Outcome: Goal Ongoing Problem: Pain Goal: Management of pain Outcome: Goal Ongoing Goal: Knowledge of pain management Outcome: Goal Ongoing Goal: Progress Toward Pain Management Goals Outcome: Goal Ongoing Problem: Infection, Risk of, Surgical Site Infection Goal: Absence of surgical site infection Outcome: Goal Ongoing Problem: Self-Care Deficit Goal: Maximize ADL functioning Outcome: Goal Ongoing Problem: Mobility/Activity Intolerance Goal: Maximize functional ADL's and mobility outcomes Outcome: Goal Ongoing * Care Plan - Kaylie Henry RN - 05/30/2021 6:41 AM CDT Problem: Discharge Planning Goal: Participation in plan of care Outcome: Goal Ongoing Goal: Knowledge regarding plan of care Outcome: Goal Ongoing Goal: Prepared for discharge Outcome: Goal Ongoing Problem: Infection, Risk of, Urinary Catheter-Associated Urinary Tract Infection Goal: Absence of urinary catheter-associated infection Outcome: Goal Ongoing Problem: Moderate Fall Risk Goal: Moderate Fall Risk Outcome: Goal Ongoing Problem: Pain Goal: Management of pain Outcome: Goal Ongoing Goal: Knowledge of pain management Outcome: Goal Ongoing Goal: Progress Toward Pain Management Goals Outcome: Goal Ongoing Problem: Infection, Risk of, Surgical Site Infection Goal: Absence of surgical site infection Outcome: Goal Ongoing Problem: Self-Care Deficit Goal: Maximize ADL functioning Outcome: Goal Ongoing Problem: Mobility/Activity Intolerance Goal: Maximize functional ADL's and mobility outcomes Outcome: Goal Ongoing * Case Mgmt DC Plan - Gale Chu - 05/28/2021 9:19 AM CDT Case Management Progress Note NAME:Tanja Deal (Dee) :1950 AGE: 71 y.o. ADMISSION DATE: 05/23/2021 DAYS ADMITTED: LOS: 5 days Todays Date: 05/28/2021 Plan Dc to inpatient setting, preference is rehab. Interventions Support Info or Referral Discharge Planning SW met with pt to discuss dc plans. Pt reports she plans on wanting to be able to stay at for placement. SW updated rehab admissions. Medication Needs Financial Legal Other Disposition Expected Discharge Date 05/28/2021 Transportation Does the Patient Need Case Management to Arrange Discharge Transport? (ex: faci lity, ambulance, wheelchair/stretcher, Medicaid, cab, other): No Will the Patient Use Family Transport?: Yes Next Level of Care (Acute Psych discharges only) Discharge Disposition Selected Continued Care - Admitted Since 05/23/2021 No services have been selected for the patient. * Case Mgmt DC Plan - Jasmine Torres RN - 05/28/2021 9:03 AM CDT Notified by Gale AGUERO) that the patient is anticipated to be ready for discharge this weekend and would prefer to stay at 's IP rehab unit. 0950: Per chart review, patients hgb is 6.8 today - would need transfusion. Pilar ent should work with PT/OT today as consult team had concerns for endurance (mati morillo need consult team to chart check after notes are in for appropriateness). Noti fied ZACKARY re: chart review. 1411: Notified Gale (ZACKARY) that if patient is deemed appropriate after f/u from r ehab consult team - [facility] will not have a bed until likely [facility] at [facility] TIA Mathews RN Inpatient Rehab Admission Nurse (office: [phone] or voalte) * Case Mgmt DC Plan - Gale Chu - 05/27/2021 10:38 AM CDT Case Management Progress Note NAME:Tanja Deal (Dee) :1950 AGE: 71 y.o. ADMISSION DATE: 05/23/2021 DAYS ADMITTED: LOS: 4 days Todays Date: 05/27/2021 Plan Dc to inpatient setting Interventions Support Info or Referral Discharge Planning SW met with pt and discussed dc planning. Pt reports she is aware she will nee d placement at tn. Pt has previously been to a facility in [place] after her stroke however states she does not want to return there. Pt states she would be open to rehab and [facility]. SW sent referrals and rehab consult placed. Medication Needs Financial Legal Other Disposition Expected Discharge Date 05/28/2021 Transportation Does the Patient Need Case Management to Arrange Discharge Transport? (ex: faci lity, ambulance, wheelchair/stretcher, Medicaid, cab, other): No Will the Patient Use Family Transport?: Yes Next Level of Care (Acute Psych discharges only) Discharge Disposition Selected Continued Care - Admitted Since 05/23/2021 No services have been selected for the patient. * Care Plan - Kathy Lima RN - 05/26/2021 11:12 AM CDT Problem: Discharge Planning Goal: Participation in plan of care Outcome: Goal Ongoing Goal: Knowledge regarding plan of care Outcome: Goal Ongoing Goal: Prepared for discharge Outcome: Goal Ongoing Problem: Infection, Risk of, Urinary Catheter-Associated Urinary Tract Infection Goal: Absence of urinary catheter-associated infection Outcome: Goal Ongoing Problem: Moderate Fall Risk Goal: Moderate Fall Risk Outcome: Goal Ongoing Problem: Pain Goal: Management of pain Outcome: Goal Ongoing Goal: Knowledge of pain management Outcome: Goal Ongoing Goal: Progress Toward Pain Management Goals Outcome: Goal Ongoing Problem: Infection, Risk of, Surgical Site Infection Goal: Absence of surgical site infection Outcome: Goal Ongoing * Anesthesia Post Op Day 1 - Tyra Da Silva SRNA - 05/26/2021 10:42 AM CDT Anesthesia Follow-Up Evaluation: Post-Procedure Day One Name: Tanja Deal : 1950 Age: 71 y.o. Sex: female Procedure Date: 05/25/2021 Procedure: Procedure(s): OPEN TREATMENT WITH INTERNAL FIXATION OF PERIPROSTHETIC LEFT FEMUR FRACTURE Physical Assessment Height: 154.9 cm (61") Weight: 90.3 kg (199 lb) Vital Signs (Last Filed in 24 hours) BP: 116/49 (05/26 918) Temp: 36.8 C (98.3 F) (05/26 918) Pulse: 68 (05/26 918) Respirations: 16 PER MINUTE (05/26 918) SpO2: 98 % (05/26 918) SpO2 Pulse: 73 (05/25 1700) Patient History Allergies Allergies Allergen Reactions Prednisone NAUSEA ONLY Lisinopril COUGH Naproxen NAUSEA ONLY Medications Scheduled Meds:allopurinoL (ZYLOPRIM) tablet 300 mg, 300 mg, Oral, QDAY aspirin EC tablet 81 mg, 81 mg, Oral, QDAY carvediloL (COREG) tablet 6.25 mg, 6.25 mg, Oral, BID cholecalciferol (VITAMIN D-3) tablet 5,000 Units, 5,000 Units, Oral, QDAY enoxaparin (LOVENOX) syringe 30 mg, 30 mg, Subcutaneous, BID ezetimibe (ZETIA) tablet 10 mg, 10 mg, Oral, QDAY gabapentin (NEURONTIN) capsule 100 mg, 100 mg, Oral, BID insulin aspart (U-100) (NOVOLOG FLEXPEN U-100 INSULIN) injection PEN 0-12 Units, 0-12 Units, Subcutaneous, 5 X Daily insulin glargine (LANTUS SOLOSTAR U-100 INSULIN) injection PEN 9 Units, 9 Units, Subcutaneous, QHS(22) levothyroxine (SYNTHROID) tablet 88 mcg, 88 mcg, Oral, QDAY pantoprazole DR (PROTONIX) tablet 40 mg, 40 mg, Oral, QDAY(21) polyethylene glycol 3350 (MIRALAX) packet 17 g, 1 packet, Oral, QDAY rosuvastatin (CRESTOR) tablet 40 mg, 40 mg, Oral, QDAY senna/docusate (SENOKOT-S) tablet 1 tablet, 1 tablet, Oral, BID sertraline (ZOLOFT) tablet 100 mg, 100 mg, Oral, QDAY Continuous Infusions: sodium chloride 0.9 % infusion 1,000 mL (05/25/21 0931) PRN and Respiratory Meds:albuterol 0.083% Q4H PRN, ALPRAZolam QHS PRN, colchicin e QDAY PRN, fentaNYL citrate PF Q1H PRN, HYDROcodone/acetaminophen Q4H PRN, onda nsetron (ZOFRAN) IV Q6H PRN Diagnostic Tests Hematology: Lab Results Component Value Date HGB 8.3 05/26/2021 HCT 25.4 05/26/2021 PLTCT 105 05/26/2021 WBC 30.2 05/26/2021 NEUT 33 02/02/2021 ANC 5.29 02/02/2021 ALC 9.99 02/02/2021 DANII 3 02/02/2021 AMC 0.42 02/02/2021 EOSA 1 02/02/2021 ABC 0.07 02/02/2021 MCV 97.0 05/26/2021 MCH 31.9 05/26/2021 MCHC 32.8 05/26/2021 MPV 9.7 05/26/2021 RDW 17.4 05/26/2021 General Chemistry: Lab Results Component Value Date NA 136 05/26/2021 K 4.9 05/26/2021 CL 102 05/26/2021 CO2 25 05/26/2021 GAP 9 05/26/2021 BUN 25 05/26/2021 CR 1.23 05/26/2021 GLU 182 05/26/2021 CA 7.9 05/26/2021 ALBUMIN 3.1 05/26/2021 MG 1.9 05/26/2021 TOTBILI 0.4 05/26/2021 PO4 4.0 05/26/2021 Coagulation: Lab Results Component Value Date PTT 27.8 12/05/2019 INR 1.0 12/05/2019 Follow-Up Assessment Patient location during evaluation: floor Anesthetic Complications: Anesthetic complications: The patient did not experience any anesthestic complic ations. Pain: Score: 0 Management:adequate Level of Consciousness: awake and alert Hydration:acceptable Airway Patency: patent Respiratory Status: acceptable and room air Cardiovascular Status:acceptable and stable Regional/Neuroaxial: Neurological status: sensory deficit (Pt has chronic sensory deficit, post-o p block has been controlling pain well) Comments: Patient tolerating PO food & liquids. Denies nausea & vomiting. * Procedures (Immed Post or Bedside) - Lenin Carbone MD - 05/25/2021 2:08 PM CDT Brief Operative Note Name: Tanja Deal is a 71 y.o. female : 1950 MRN# : [id number] DATE OF OPERATION: 05/25/2021 Date: 05/25/2021 Preoperative Dx: Closed fracture of left hip, initial encounter ([facility]) [S72.002A] Post-op Diagnosis * Closed fracture of left hip, initial encounter ([facility]) [S72.002A] Procedure(s) (LRB): OPEN TREATMENT WITH INTERNAL FIXATION OF PERIPROSTHETIC LEFT FEMUR FRACTURE (Lef t) Surgeon(s) and Role: * Raman Wu MD - Primary * Lenin Carbone MD - Resident - Assisting Findings: L manny-prosthetic femur fx Estimated Blood Loss: 1200 ml Specimen(s) Removed/Disposition: * No specimens in log * Complications: None Implants: Implant Name Type Inv. Item Serial No. Cluster Bore Operator Lot No. [id number] No. Used Action PIN POSITIONING 4.5MM LCP STAINLESS STEEL CERCLAGE THREADED - [id number] PIN POSI TIONING 4.5MM LCP STAINLESS STEEL CERCLAGE THREADED [id number] [employer] 25P 1229 Left 1 Implanted CABLE ORTHOPEDIC STAINLESS STEEL 1.7MM 750MM LONG BONE CRIMP - [id number] CABLE O RTHOPEDIC STAINLESS STEEL 1.7MM 750MM LONG BONE CRIMP [id number] DEPUY [employer] P [id number] Left 1 Implanted CABLE ORTHOPEDIC STAINLESS STEEL 1.7MM 750MM LONG BONE CRIMP - [id number] CABLE O RTHOPEDIC STAINLESS STEEL 1.7MM 750MM LONG BONE CRIMP [id number] Energie P [id number] Left 1 Implanted 4.5MM LCP PROXIMAL FEMUR PLATE 242.114 [employer] 242.114 Left 1 Impl anted CABLE ORTHOPEDIC STAINLESS STEEL 1.7MM 750MM LONG BONE CRIMP - [id number] CABLE O RTHOPEDIC STAINLESS STEEL 1.7MM 750MM LONG BONE CRIMP [id number] DEPJMB Energie P [id number] Left 1 Implanted SCREW BONE 5MM 18MM LCP STAINLESS STEEL FULL THREAD T25 - [id number] SCREW BONE 5 MM 18MM LCP STAINLESS STEEL FULL THREAD T25 212.203 [employer]ax GmbH 212.203 Lef t 1 Implanted SCREW BONE 5MM 30MM LCP STAINLESS STEEL T25 FULL THREAD CONE - [id number] SCREW B ONE 5MM 30MM LCP STAINLESS STEEL T25 FULL THREAD CONE 212.209 [email or web address] CO 2 12.209 Left 1 Implanted 7.3 CANNULATED LOCKING SCREW 02.207.050 SY[employer] 02.207.050 Left 2 Implanted SCREW BONE 5MM 40MM LCP STAINLESS STEEL FULL THREAD T25 - [id number] SCREW BONE 5 MM 40MM LCP STAINLESS STEEL FULL THREAD T25 212.214 [email or web address] [place] 212.214 Lef t 1 Implanted SCREW BONE 4.5MM 40MM LCP STAINLESS STEEL STANDARD CORTICAL - [id number] SCREW TITUS NE 4.5MM 40MM LCP STAINLESS STEEL STANDARD CORTICAL 214.840 DEPUY [employer] 214 .840 Left 3 Implanted SCREW BONE 3.5MM 16MM LCP STAINLESS STEEL FULL THREAD PELVIS - [id number] SCREW B ONE 3.5MM 16MM LCP STAINLESS STEEL FULL THREAD PELVIS 212.104 DEPU[employer] 2 12.104 Left 1 Implanted SCREW BONE 3.5MM 20MM LCP STAINLESS STEEL TIBIA PROXIMAL - [id number] SCREW BONE 3.5MM 20MM LCP STAINLESS STEEL TIBIA PROXIMAL 212.106 [employer]ax [employer] 212.106 L eft 3 Implanted 3.5MM LOCKING ATTACHMENT PLATES, FOR 4.5MM LCP PROXIMAL FEMUR PLATES 02.120.60 3 [employer] 3 Left 1 Implanted Drains: Hemovac: 10 mL Disposition: PACU - stable Lenin Carbone MD Pager [phone] Associated attestation - Raman Wu MD - 05/27/2021 4:07 PM CDT I saw and evaluated the patient. Discussed with resident and agree with jeff sanchez's findings and plan as documented in the resident's note. Raman Wu MD Orthopaedic Trauma Attending * Care Plan - Ethel Winter RN - 05/25/2021 1:45 PM CDT Problem: Discharge Planning Goal: Participation in plan of care Outcome: Goal Ongoing Goal: Knowledge regarding plan of care Outcome: Goal Ongoing Goal: Prepared for discharge Outcome: Goal Ongoing Problem: Infection, Risk of, Urinary Catheter-Associated Urinary Tract Infection Goal: Absence of urinary catheter-associated infection Outcome: Goal Ongoing Problem: Moderate Fall Risk Goal: Moderate Fall Risk Outcome: Goal Ongoing Problem: Pain Goal: Management of pain Outcome: Goal Ongoing Goal: Knowledge of pain management Outcome: Goal Ongoing Goal: Progress Toward Pain Management Goals Outcome: Goal Ongoing * Operative Report (Direct Entry) - Raman Wu MD - 05/25/2021 11:01 AM CDT OPERATIVE REPORT PATIENT: Tanja Deal SEX: female : 1950 AGE. 71 y.o. SERVICE: ORTHOPEDICS DATE OF PROCEDURE: 05/25/21 * * * * * * * * * * * * * * * * * * * * * * * * * * * * * * * * DATE OF PROCEDURE: 05/25/21 PREOPERATIVE DIAGNOSIS: 1. Left periprosthetic femoral shaft fracture POSTOPERATIVE DIAGNOSIS: 1. Left periprosthetic femoral shaft fracture OPERATIVE PROCEDURE: 1. Open reduction and internal fixation of Left periprosthetic femoral shaft fr acture CPT: 08040 ATTENDING SURGEON: Dr. Raman Wu MD RESIDENT: Jakob Carbone MD INSTRUMENT COUNT: Correct. COMPLICATIONS: None. ANESTHESIA: General. ESTIMATED BLOOD LOSS: 150 mL SPECIMENS: NONE CONDITION: Stable to recovery room. IMPLANTS: Synthes INDICATIONS: This is a 85 y.o. patient who sustained a displaced Periprosthetic femoral shaft fracture. The risks/benefits/alternatives to surgi mery intervention were explained in detail and consents were signed. No guarantees were made. TECHNIQUE: The patient was previously marked, identified in pre-op, and taken to the operating room where anesthesia was induced. The patient was placed in the lateral decubitus position with appropriate Padding of bony prominences and utilization of an axillary roll. After prepping and draping a time-out was called. Antibiotics were Administered within one hour of the start of the case. Following this, an appro ximately 25 cm incision was made along the lateral aspect of the thigh extending from the tip of the greater trochanter down the lateral aspect of the mid axis of the femur. We came down sharply through the skin and subcutaneous tissue alayna n to the underlying gluteal fascia and IT band. We split the gluteal fascia and IT band in line with the fibers to come down to the underlying vastus lateralis . We then elevated the vastus lateralis off the posterior aspect of the femur a t the linea aspera and elevated it anteriorly in order to expose the femur. We carried our dissection proximally we released the vastus lateralis off the vastu s ridge leaving a cuff of tissue for later repair. We continue to elevate the v astus lateralis off of the proximal aspect of the femur and out the fracture sit e in order to fully visualize the fracture site. We cleared out the fracture si te of any interposing soft tissue or hematoma. We then began to reduce the frac ture first starting at the distal aspect. We obtained an anatomic reduction by pulling the femur out to length and controlling the rotation with bone-holding f orceps and then utilizing pointed reduction clamps in order to clamp the fractur e in an anatomic position. With the fracture held in an anatomic position we pa ssed a Synthes cerclage cable around the femoral shaft and around the prosthesis and tightened down appropriately. The cable was noted noted to hold the fractu re in anatomic position. We then moved to the proximal aspect of the fracture a nd again achieved an anatomic reduction utilizing pointed reduction clamps. We then passed the second Synthes cerclage cable around the fracture site and tight ened it down and crimped it and it was noted to again hold the fracture in anato susan position. At this point we contoured a Synthes proximal femur periprostheti c plate in order for it to match the contour of the lateral aspect of the cora sanchez's femur. We then positioned into place and confirmed the appropriate position with fluoroscopy. We then sequentially placed a cerclage cable around the prox imal aspect of the femur around the femoral stem and fracture site in order to b ring the plate down to bone and further secure fracture. We did passes cable th rough a caliper screwed into one of the screw holes of the plate. We tensioned it down appropriately and it was noted to have good fixation. We then jennifer brown placed nonlocking screws in the distal aspect of the plate as well as a lock ing screw to provide added stability. We placed the proximal locking screws to further secure fixation and then finalize our fixation with a attachment plate w ith screws onto the plate itself and placed screws around the femoral stem. No please note that the screws were noted to have interference fit with the stem an d hopefully increase the stability of the stem distally. Once all her hardware was in place we took final radiographs confirm appropriate reduction and hardwar e positioning. We copiously irrigated the wound with normal saline solution. W e placed a gram of vancomycin powder deep within the wound as well as a Hemovac drain. We repaired the vastus lateralis with a 0 PDS sutures. We repaired the IT band and gluteal fascia with 0 PDS sutures as well. We then closed the skin in multiple layers consisting of 2-0 PDS and kourtney in the skin. Sterile dress ings were then applied and the patient was awakened from anesthesia having dominic ated the procedure well without complication. POSTOPERATIVE PLAN: The patient will be toe touch weightbearing on the left low er extremity. She will receive 24 hours of perioperative antibiotics. Maintain drain until the output is negligible. Lovenox for DVT prophylaxis in house and discharge on aspirin 81 mg PO BID for one month. Return to clinic in 2-3 weeks. I was present for and participated in the entire procedure. Raman Wu MD * Case Mgmt DC Plan - Janet Green RN - 05/24/2021 11:11 AM CDT Case Management Admission Assessment NAME:Tanja Deal (Dee) :1950 AGE: 71 y.o. ADMISSION DATE: 05/23/2021 DAYS ADMITTED: LOS: 1 day Todays Date: 05/24/2021 Source of Information: Patient Chief Complaint: Patient is a 71 y/o female who was a trauma transfer to [facility] from [facility] in [place], [place], on 05/23/2021, after a trip and fal l. Patient reports she lost her balance and tripped over a curb. She landed on h er right hip and reported immediate pain in her left hip. Patient diagnosed with left periprosthetic femur fracture. Ortho consult; patient will go to OR with Dr Wu on 05/25/2021 for ORIF left pe riprosthetic femur fracture. PT/OT. Pain control. Internal Medicine (geriatric) consult. Plan: Case Management Assessment, Discharge Planning for Home with Post-Acute Ca re Needs, Discharge Planning for Post-Acute Facility, Assist PRN with SW/NCM Ser vices Too early to determine discharge as patient has not yet had operative inte rvention or worked with therapies. She has been to [facility] in the past. Patient Address/Phone Tanja Deal (Dee) [address] [place] [phone] (home) Emergency Contact Extended Emergency Contact Information Primary Emergency Contact: Lynette Tapia [facility] Mobile Relation: Daughter Secondary Emergency Contact: Leanne Whipple [facility] Mobile Relation: Daughter Healthcare Directive Has a healthcare directive Transportation Does the Patient Need Case Management to Arrange Discharge Transport? (ex: facil ity, ambulance, wheelchair/stretcher, Medicaid, cab, other): No Will the Patient Use Family Transport?: Yes Expected Discharge Date 05/27/2021 Living Situation Prior to Admission Living Arrangements Type of Residence: Home, independent Living Arrangements: Alone Bathroom Shower / Tub: Walk-in Shower How many levels in the residence?: 1 Can patient live on one level if needed?: Yes Does residence have entry and/or side stairs?: No Assistance needed prior to admit or anticipated on discharge: Yes Can support system provide 24/7 care if needed?: No Level of Function Prior level of function: Independent ( with 3 adult kids. Uses a pyramid cane for ambulation. Still drives "in-town".) Cognitive Abilities Cognitive Abilities: Alert and Oriented, Recognizes impact of health condition o n lifestyle, Participates in decision making Indicated the Highest Level of Education: Completed 9th grade. 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 No Psychosocial Needs Mental Health Mental Health History: No (Has some depression. Denies thoughts of harm to self. Not seeing a mental health provider currently) Substance Use History Substance Use History Screen: No Audit C = 0 Cage Aid = 0 Current/Previous Services PCP Guillermina Davis, , (States she sees her regularly) Patient with significant medical surgical history. Medical problems include hypo thyroidism, hypertension, hyperlipidemia, CAD, ischemic cardiology s/p CABG, Typ e II diabetes, CKD. In regards to her diabetes, she has trajenta, and xigduo, as well as 10 units of long-acting basal insulin a day. Her last HA1c in the [facility] was 12.4 on 02/02/2021. She had a prior fracture of her left hip requiring pin carmine in September 2016. She underwent left knee arthroplasty in August 2019. Sharon mckeon had a 3-vessel CABG in March 2016 with a stroke immediately afterwards. . Her o nly abdominal surgery is a prior laproscopic cholecystectomy. Pharmacy [facility] - [place], [place] - [address] [address] [facility] - [place], [place] - [address] [facility] [address] [facility] [address] Durable Medical Equipment Durable Medical Equipment at home: Pyramid Cane, Shower Chair, Grab bars, Toilet riser Home Health Receiving home health: No Hemodialysis or Peritoneal Dialysis Undergoing hemodialysis or peritoneal dialysis: No Tube/Enteral Feeds Receive tube/enteral feeds: No Infusion Receive infusions: No Private Duty Private duty help used: No Home and Community Based Services Home and community based services: No Steve White Steve White: No Hospice Hospice: No Outpatient Therapy PT: In the past When did patient receive care?: Following knee replacement surgery patient atten ded PT at [facility] in [place], [place] Would patient return for future services?: Yes OT: In the past When did patient receive care?: Following CVA in 2016 Halfway Facility/Long-Term SNF: No NH: No Inpatient Rehab IPR: Yes When did patient receive care?: [facility] following CVA Would patient return for future services?: Yes Long-Term Acute Care Hospital LTACH: No Acute Hospital Stay Acute Hospital Stay: In the past Was patient's stay within the last 30 days?: No Will continue to follow for discharge planning and support, Janet Green RN, BSN Trauma & Burn Fine Arts Instructor Pager: [phone] * Care Plan - Ethel Winter RN - 05/24/2021 10:29 AM CDT Problem: Discharge Planning Goal: Participation in plan of care Outcome: Goal Ongoing Flowsheets (Taken 05/24/2021 1029) Participation in Plan of Care: Involve patient/caregiver in care planning decisi on making Goal: Knowledge regarding plan of care Outcome: Goal Ongoing Flowsheets (Taken 05/24/2021 1029) Knowledge regarding plan of care: Provide procedural and treatment education Provide infection prevention education Provide VTE signs and symptoms education Provide medication management education Provide fall prevention education Provide plan of care education Goal: Prepared for discharge Outcome: Goal Ongoing Flowsheets (Taken 05/24/2021 1029) Prepared for discharge: Provide safe use medical equipment education Problem: Infection, Risk of, Urinary Catheter-Associated Urinary Tract Infection Goal: Absence of urinary catheter-associated infection Outcome: Goal Ongoing Flowsheets (Taken 05/24/2021 1029) Absence of urinary catheter-associated infections: Manage urinary catheter Assess for signs and sypmtoms of catheter-associated urinary tract infection Provide patient/family education on CAUTI prevention Problem: Moderate Fall Risk Goal: Moderate Fall Risk Outcome: Goal Ongoing Flowsheets (Taken 05/24/2021 1029) Moderate Fall Risk: All patients will receive: High fall risk sign, yellow wristband, yellow socks, gait belt, and shower shoes Engage bed/chair alarm PT/OT consult for fall prevention assessment if scoring in Unsteady Gait or Vis ual or Auditory impairment Remove excess equipment/supplies Educate patient to use call-light if tethered Use shower shoes Maximize bed functionality (optimize bed height, firm/flat surface) Use safe patient handling equipment as appropriate Problem: Pain Goal: Management of pain Outcome: Goal Ongoing Flowsheets (Taken 05/24/2021 1029) Management of pain: Complete pain assessment scale according to age, condition and ability to under stand. In the patient who can fully report pain, assess pain characteristics. Manage pain. Assess opioid analgesia side-effects. Assess pain control barriers. Goal: Knowledge of pain management Outcome: Goal Ongoing Flowsheets (Taken 05/24/2021 1029) Knowledge of pain management: Provide pain scale education Provide pharmacological pain management education Provide pain management methods education Goal: Progress Toward Pain Management Goals Outcome: Goal Ongoing Flowsheets (Taken 05/24/2021 1029) Progress toward pain management goals: Progress toward pain management goals Assess progress toward pain management goals * Advanced Care Planning/Resuscitation Status - Zhanna Artis MD - 05/23/2021 8:03 PM CDT Advance Care Planning/Resuscitation Status Conversation Individuals present for advance care planning conversation: resident/fellow phys ician Pertinent details of conversation (including direct quotes from patient or surro gate): Patient states that she would like everything done at least one time. She has a living will that her daughters have. Family was present during the conver sation. Outcome of conversation: Full Code Documents completed as a result of this conversation: None Zhanna Artis MD documented in this encounter Plan of Treatment Date/Time Name Type Priority Associated Diag noses 05/25/2021 3:58 PM CDT POC ANES US GUIDED NERVE Imaging STAT BLOCK Order Schedule Name Type Priority Associated Diag noses ONE TIME for 1 Occurrences starting 05/09 until 05/25/2021 ECG 12-LEAD ECG Routine documented as of this encounter Goals Goal Patient Associated Recent Progress Patient-Stat Aut hor Goal Type Problems ed? get better and get my knee General Yes Berenice Tillman, then my back RN Resume normal activities Hospital On track (05/24/2021 Yes Alessandro, 2:25 PM CDT) MATT Aranda documented as of this encounter Procedures Comments Procedure Name Priority Date/Time Associated Diag nosis POC GLUCOSE 06/01/2021 12:07 PM CDT POC [...] POC GLUCOSE 05/29/2021 11:35 AM CDT HC CBC,AUTOMATED Routine 05/29/2021 10:55 AM CDT HC BASIC METABOLIC PANEL Routine 05/29/2021 10:55 AM CDT POC GLUCOSE [...] POC GLUCOSE 05/28/2021 7:25 AM CDT HC CBC,AUTOMATED Routine 05/28/2021 5:44 AM CDT HC PHOSPHOROUS, SERUM Routine 05/28/2021 5:44 AM CDT HC MAGNESIUM Routine 05/28/2021 5:44 AM CDT HC COMPREHENSIVE Routine 05/28/2021 METABOLIC PANEL 5:44 AM CDT POC GLUCOSE 05/28/2021 3:04 [...] 05/27/2021 + %SAT 4:17 AM CDT HC CBC,AUTOMATED Routine 05/27/2021 4:17 AM CDT HC PHOSPHOROUS, SERUM Routine 05/27/2021 4:17 AM CDT HC MAGNESIUM Routine 05/27/2021 4:17 AM CDT HC COMPREHENSIVE Routine 05/27/2021 METABOLIC PANEL 4:17 AM CDT POC GLUCOSE 05/27/2021 2:21 AM CDT POC GLUCOSE 05/26/2021 9:25 PM CDT POC GLUCOSE 05/26/2021 5:31 PM CDT FOOT 2 VIEW BILATERAL Routine 05/26/2021 1:19 PM CDT ANKLE MIN 3 VIEWS RIGHT Routine 05/26/2021 12:59 PM CDT POC GLUCOSE 05/26/2021 11:59 AM CDT POC GLUCOSE 05/26/2021 7:27 AM CDT HC CBC,AUTOMATED Routine 05/26/2021 5:58 AM CDT HC PHOSPHOROUS, SERUM Routine 05/26/2021 5:58 AM CDT HC MAGNESIUM Routine 05/26/2021 5:58 AM CDT HC COMPREHENSIVE Routine 05/26/2021 METABOLIC PANEL 5:58 AM CDT POC GLUCOSE 05/26/2021 3:27 AM CDT POC GLUCOSE 05/25/2021 10:37 PM CDT POC GLUCOSE 05/25/2021 9:07 PM CDT POC GLUCOSE 05/25/2021 5:45 PM CDT POC GLUCOSE 05/25/2021 2:55 PM CDT FLUORO MOBILE IN OR Routine 05/25/2021 1:21 PM CDT OPEN TREATMENT WITH 05/25/2021 Closed fracture o f left INTERNAL FIXATION/ 10:24 AM CDT hip, initial encou nter PROSTHETIC REPLACEMENT (HCC) PROXIMAL END/ NECK FEMORAL FRACTURE POC GLUCOSE 05/25/2021 10:17 AM CDT POC GLUCOSE 05/25/2021 7:55 AM CDT HC CBC,AUTOMATED Routine 05/25/2021 4:40 AM CDT HC PHOSPHOROUS, SERUM Routine 05/25/2021 4:40 AM CDT HC MAGNESIUM Routine 05/25/2021 4:40 AM CDT HC COMPREHENSIVE Routine 05/25/2021 METABOLIC PANEL 4:40 AM CDT POC GLUCOSE 05/25/2021 2:42 AM CDT POC GLUCOSE 05/24/2021 9:24 PM CDT POC GLUCOSE 05/24/2021 5:01 PM CDT POC GLUCOSE 05/24/2021 11:54 AM CDT HC ABO GROUP ALEXANDRU 05/24/2021 10:21 AM CDT POC GLUCOSE 05/24/2021 8:23 AM CDT HC CBC,AUTOMATED Routine 05/24/2021 5:51 AM CDT HC PHOSPHOROUS, SERUM Routine 05/24/2021 5:51 AM CDT HC MAGNESIUM Routine 05/24/2021 5:51 AM CDT HC HEMOGLOBIN A1C Routine 05/24/2021 5:51 AM CDT HC COMPREHENSIVE Routine 05/24/2021 METABOLIC PANEL 5:51 AM CDT POC GLUCOSE 05/24/2021 3:11 AM CDT UA REFLEX LABEL Routine 05/23/2021 10:45 PM CDT URINALYSIS MICROSCOPIC Routine 05/23/2021 REFLEX TO CULTURE 10:45 PM CDT HC URINALYSIS UAR Routine 05/23/2021 10:[address] ABD/PELV WO CONTRAST STAT 05/23/2021 10:[address] LOWER EXTREM WO CONT STAT 05/23/2021 LEFT 10:22 PM CDT POC GLUCOSE 05/23/2021 9:04 PM CDT HC CBC,AUTOMATED STAT 05/23/2021 8:45 PM CDT HC PHOSPHOROUS, SERUM STAT 05/23/2021 8:45 PM CDT HC MAGNESIUM STAT 05/23/2021 8:45 PM CDT HC COMPREHENSIVE STAT 05/23/2021 METABOLIC PANEL 8:45 PM CDT TELEMETRY STRIPS-SCAN 05/23/2021 12:00 AM CDT documented in this encounter Results * POC GLUCOSE (06/01/2021 12:07 PM CDT) Glucose, POC 154 (H) 70 - 100 MG/DL MAIN LAB Specimen Performing Organization Address City/[facility] P curry Number MAIN LAB [address] [place] [address] * POC GLUCOSE (06/01/2021 7:39 AM CDT) Glucose, POC 103 (H) 70 - 100 MG/DL MAIN LAB Specimen Performing Organization Address [facility] P curry Number MAIN LAB [address] [place] [address] * POC GLUCOSE (06/01/2021 3:09 AM CDT) Glucose, POC 106 (H) 70 - 100 MG/DL MAIN LAB Specimen Performing Organization Address [facility] P curry Number MAIN LAB [address] [place] [address] * POC GLUCOSE (05/31/2021 8:58 PM CDT) Glucose, POC 137 (H) 70 - 100 MG/DL MAIN LAB Specimen Performing Organization Address [facility] P curry Number MAIN LAB [address] [place] [address] * POC GLUCOSE (05/31/2021 4:25 PM CDT) Glucose, POC 190 (H) 70 - 100 MG/DL MAIN LAB Specimen Performing Organization Address [facility] P curry Number MAIN LAB [address] [place] [address] * POC GLUCOSE (05/31/2021 11:48 AM CDT) Glucose, POC 201 (H) 70 - 100 MG/DL MAIN LAB Specimen Performing Organization Address [facility] P curry Number MAIN LAB [address] [place] [address] * POC GLUCOSE (05/31/2021 8:02 AM CDT) Glucose, POC 105 (H) 70 - 100 MG/DL KU MAIN LAB Specimen Performing Organization Address [facility] Code P curry Number MAIN LAB [address] [place] [address] * POC GLUCOSE (05/30/2021 9:15 PM CDT) Glucose, POC 189 (H) 70 - 100 MG/DL MAIN LAB Specimen Performing Organization Address City/[facility] Code P curry Number MAIN LAB [address] [place] [address] * POC GLUCOSE (05/30/2021 4:50 PM CDT) Glucose, POC 174 (H) 70 - 100 MG/DL MAIN LAB Specimen Performing Organization Address [facility] P curry Number MAIN LAB [address] [place] [address] * POC GLUCOSE (05/30/2021 11:32 AM CDT) Glucose, POC 199 (H) 70 - 100 MG/DL MAIN LAB Specimen Performing Organization Address [facility] P curry Number MAIN LAB [address] [place] [address] * POC GLUCOSE (05/30/2021 9:07 AM CDT) Glucose, POC 146 (H) 70 - 100 MG/DL MAIN LAB Specimen Performing Organization Address [facility] P curry Number MAIN LAB [address] [place] [address] * TSH WITH FREE T4 REFLEX (05/30/2021 4:43 AM CDT) TSH 0.89 0.35 - 5.00 MCU/ML MAIN LAB Specimen Blood Performing Organization Address [facility] Code P curry Number MAIN LAB [address] [place] [address] * POC GLUCOSE (05/30/2021 3:16 AM CDT) Glucose, POC 162 (H) 70 - 100 MG/DL MAIN LAB Specimen Performing Organization Address [facility] Code P curry Number KU MAIN LAB [address] [place] [address] * POC GLUCOSE (05/29/2021 9:48 PM CDT) Glucose, POC 224 (H) 70 - 100 MG/DL KU MAIN LAB Specimen Performing Organization Address City/[facility]/ZIP Code P curry Number [facility] MAIN LAB [address] [place] [address] * POC GLUCOSE (05/29/2021 5:19 PM CDT) Glucose, POC 208 (H) 70 - 100 MG/DL [facility] MAIN LAB Specimen Performing Organization Address City/[facility]/ZIP Code P curry Number [facility] MAIN LAB [address] [place] [address] * POC GLUCOSE (05/29/2021 11:35 AM CDT) Glucose, POC 242 (H) 70 - 100 MG/DL KU MAIN LAB Specimen Performing Organization Address [facility] P curry Number MAIN LAB [address] [place] [address] * BASIC METABOLIC PANEL (05/29/2021 10:55 AM CDT) Sodium 137 137 - 147 MMOL/L KU [...] (L) >60 mL/min KU MAIN LAB Comment: [place] The eGFR is not validated f or use in drug dosing adjustments. Continue to use estimated creatinine clearance per dosing reference text. Please contact the Clinical Pharmacist for questions. eGFR >60 >60 mL/min K[facility] MAIN LAB [place] Comment: The eGFR is not validated for use in drug dosing adjustments. Continue to use estimated creatinine clearance per dosing reference text. Please contact the Clinical Pharmacist for questions. Specimen Blood Performing Organization Address City/[facility]/ZIP Code P curry Number MAIN LAB [address] [place] [address] * CBC (05/29/2021 10:55 AM CDT) White Blood 10.4 4.5 - 11.0 K/UL MAIN LAB Cells RBC 2.63 (L) 4.0 - 5.0 M/UL [facility] MAIN LAB Hemoglobin 8.1 (L) 12.0 - 15.0 GM/DL [facility] MAIN LAB Hematocrit 24.9 (L) 36 - 45 % [facility] MAIN LAB MCV 94.7 80 - 100 FL MAIN LAB MCH 30.8 26 - 34 PG MAIN LAB MCHC 32.5 32.0 - 36.0 G/DL MAIN LAB RDW 19.3 (H) 11 - 15 % MAIN LAB Platelet Count 104 (L) 150 - 400 K/UL MAIN LAB MPV 9.0 7 - 11 FL MAIN LAB Specimen Blood Performing Organization Address [facility]/ZIP Code P curry Number MAIN LAB [address] [place] [address] * POC GLUCOSE (05/29/2021 9:33 AM CDT) Glucose, POC 173 (H) 70 - 100 MG/DL MAIN LAB Specimen Performing Organization Address City/[facility]/ZIP Code P curry Number MAIN LAB [address] [place] [id number] * POC GLUCOSE (05/29/2021 8:27 AM CDT) Glucose, POC 184 (H) 70 - 100 MG/DL MAIN LAB Specimen Performing Organization Address City/[facility]/ZIP Code P curry Number MAIN LAB [address] [place] [address] * POC GLUCOSE (05/29/2021 3:08 AM CDT) Glucose, POC 162 (H) 70 - 100 MG/DL MAIN LAB Specimen Performing Organization Address City/[facility]/ZIP Code P curry Number MAIN LAB [address] [place] [address] * POC GLUCOSE (05/28/2021 9:57 PM CDT) Glucose, POC 149 (H) 70 - 100 MG/DL MAIN LAB Specimen Performing Organization Address City/[facility]/ZIP Code P curry Number MAIN LAB [address] [place] [id number] * POC GLUCOSE (05/28/2021 5:55 PM CDT) Glucose, POC 264 (H) 70 - 100 MG/DL [facility] MAIN LAB Specimen Performing Organization Address City/[facility]/ZIP Code P curry Number [facility] MAIN LAB [address] [place] [address] * HEMOGLOBIN & HEMATOCRIT (05/28/2021 5:30 PM CDT) Hemoglobin 8.0 (L) 12.0 - 15.0 GM/DL [facility] MAIN LAB Hematocrit 24.3 (L) 36 - 45 % [facility] MAIN LAB Specimen Performing Organization Address City/[facility] Code P curry Number [facility] MAIN LAB [address] [place] [address] * HEMOGLOBIN & HEMATOCRIT (05/28/2021 5:00 PM CDT) Hemoglobin 7.6 (L) 12.0 - 15.0 GM/DL [facility] MAIN LAB Hematocrit 23.1 (L) 36 - 45 % [facility] MAIN LAB Specimen Blood Performing Organization Address City/[facility] Code P curry Number [facility] MAIN LAB [address] [place] [address] * TRANSFUSE RBC'S (05/28/2021 4:39 PM CDT) Specimen Blood * TRANSFUSE RBC'S (05/28/2021 4:39 PM CDT) Specimen Blood * POC GLUCOSE (05/28/2021 11:45 AM CDT) Glucose, POC 305 (H) 70 - 100 MG/DL [facility] MAIN LAB Specimen Performing Organization Address [facility] P curry Number [facility] MAIN LAB [address] [place] [address] * TYPE & CROSSMATCH (05/28/2021 11:10 AM CDT) Units Ordered 1 MAIN LAB Crossmatch 05/31/2021,2359 [facility] MAIN LAB Expires Record Check FOUND [facility] MAIN LAB ABO/RH(D) A POS [facility] MAIN LAB Antibody Screen NEG [facility] MAIN LAB Electronic YES [facility] MAIN LAB Crossmatch Unit Number [id number] [facility] MAIN LAB Blood Component RBC,ADSOL,LEUKO REDUCED [facility] MAIN LAB Type Unit Division 00 [facility] MAIN LAB Status OF Unit TRANSFUSED [facility] MAIN LAB ISSUE DATE TIME [facility] MAIN LAB PRODUCT CODE [id number] [facility] MAIN LAB BLOOD TYPE A POS [facility] MAIN LAB CODING STATUS 6200 [facility] MAIN LAB BLOOD [id number] [facility] MAIN LAB EXPIRATION DATE Transfusion OK TO TRANSFUSE [facility] MAIN LAB Status Crossmatch COMPATIBLE,ELECTRONIC [facility] MAIN LAB Result Specimen Midstream Performing Organization Address [facility]/ZIP Code P curry Number [facility] [address] [place] [address] * POC GLUCOSE (05/28/2021 7:25 AM CDT) Glucose, POC 205 (H) 70 - 100 MG/DL [facility] Specimen Performing Organization Address [facility]/ZIP Code P curry Number [facility] [address] [place] [address] * PHOSPHORUS (05/28/2021 5:44 AM CDT) Phosphorus 2.1 2.0 - 4.5 MG/DL [facility] Specimen Blood Performing Organization Address [facility] P curry Number [facility] [address] [place] [address] * MAGNESIUM (05/28/2021 5:44 AM CDT) Magnesium 2.1 1.6 - 2.6 mg/dL [facility] Specimen Blood Performing Organization Address [facility] P curry Number [facility] [address] [place] [address] * COMPREHENSIVE METABOLIC PANEL (05/28/2021 5:44 AM CDT) Sodium 137 137 - 147 MMOL/L KU [...] (L) >60 mL/min [facility] Comment: [place] The eGFR is not validated f or use in drug dosing adjustments. Continue to use estimated creatinine clearance per dosing reference text. Please contact the Clinical Pharmacist for questions. eGFR >60 >60 mL/min [facility] [place] Comment: The eGFR is not validated for use in drug dosing adjustments. Continue to use estimated creatinine clearance per dosing reference text. Please contact the Clinical Pharmacist for questions. Specimen Blood Performing Organization Address City/[facility]/ZIP Code P curry Number [facility] [address] [place] [address] * CBC (05/28/2021 5:44 AM CDT) White Blood 13.5 (H) 4.5 - 11.0 K/UL [facility] Cells RBC 2.20 (L) 4.0 - 5.0 M/UL [facility] Hemoglobin 6.8 (L) 12.0 - 15.0 GM/DL [facility] Hematocrit 21.2 (L) 36 - 45 % [facility] MCV 96.1 80 - 100 FL [facility] MCH 31.0 26 - 34 PG [facility] MCHC 32.2 32.0 - 36.0 G/DL [facility] RDW 19.5 (H) 11 - 15 % [facility] Platelet Count 97 (L) 150 - 400 K/UL [facility] MPV 9.2 7 - 11 FL [facility] Specimen Blood Performing Organization Address City/State/ZIP Code P curry Number [facility] [address] [place] [address] * POC GLUCOSE (05/28/2021 3:04 AM CDT) Glucose, POC 201 (H) 70 - 100 MG/DL [facility] Specimen Performing Organization Address City/[facility]/ZIP Code P curry Number [facility] [address] [place] [address] * POC GLUCOSE (05/27/2021 8:57 PM CDT) Glucose, POC 270 (H) 70 - 100 MG/DL [facility] Specimen Performing Organization Address [facility] Code P curry Number [facility] [address] [place] [id number] * POC GLUCOSE (05/27/2021 6:44 PM CDT) Glucose, POC 301 (H) 70 - 100 MG/DL [facility] Specimen Performing Organization Address [facility] P curry Number [facility] [address] [place] [address] * POC GLUCOSE (05/27/2021 4:36 PM CDT) Glucose, POC 288 (H) 70 - 100 MG/DL [facility] Specimen Performing Organization Address [facility] P curry Number [facility] [address] [place] [address] * CBC (05/27/2021 2:25 PM CDT) White Blood 17.1 (H) 4.5 - 11.0 K/UL [facility] Cells RBC 2.35 (L) 4.0 - 5.0 M/UL [facility] Hemoglobin 7.4 (L) 12.0 - 15.0 GM/DL [facility] Hematocrit 22.1 (L) 36 - 45 % MAIN LAB MCV 94.2 80 - 100 FL MAIN LAB MCH 31.6 26 - 34 PG MAIN LAB MCHC 33.6 32.0 - 36.0 G/DL MAIN LAB RDW 19.2 (H) 11 - 15 % [facility] Platelet Count 97 (L) 150 - 400 K/UL MAIN LAB MPV 9.2 7 - 11 FL MAIN LAB Specimen Blood Performing Organization Address [facility] P curry Number [facility] [address] [place] [address] * TRANSFUSE RBC'S (05/27/2021 12:52 PM CDT) Specimen Blood * TRANSFUSE RBC'S (05/27/2021 12:52 PM CDT) Specimen Blood * POC GLUCOSE (05/27/2021 12:33 PM CDT) Glucose, POC 261 (H) 70 - 100 MG/DL [facility] Specimen Performing Organization [facility] Code P curry Number [facility] [address] [place] [address] * POC GLUCOSE (05/27/2021 8:29 AM CDT) Glucose, POC 201 (H) 70 - 100 MG/DL [facility] Specimen Performing Organization Address [facility]/ZIP Code P curry Number [facility] [address] [place] [address] * IRON + BINDING CAPACITY + %SAT+ FERRITIN (05/27/2021 4:17 AM CDT) Iron 55 50 - 160 MCG/DL [facility] Iron 261 (L) 270 - 380 MCG/DL [facility] Binding-TIBC % Saturation 21 (L) 28 - 42 % [facility] Ferritin 411 (H) 10 - 200 NG/ML [facility] Specimen Performing Organization Address [facility] Code P curry Number [facility] [address] [place] [address] * PHOSPHORUS (05/27/2021 4:17 AM CDT) Phosphorus 2.4 2.0 - 4.5 MG/DL [facility] Specimen Blood Performing Organization Address City/[facility] Code P curry Number [facility] [address] [place] [address] * MAGNESIUM (05/27/2021 4:17 AM CDT) Magnesium 1.9 1.6 - 2.6 mg/dL [facility] Specimen Blood Performing Organization Address [facility] Code P curry Number [facility] [address] [place] [address] * COMPREHENSIVE METABOLIC PANEL (05/27/2021 4:17 AM CDT) Sodium 135 (L) 137 - 147 MMOL/L [facility] Potassium 4.2 3.5 - 5.1 MMOL/L [facility] Chloride 102 98 - 110 MMOL/L [facility] Glucose 245 (H) 70 - 100 MG/DL [facility] Blood Urea 25 7 - 25 MG/DL [facility] Nitrogen Creatinine 1.28 (H) 0.4 - 1.00 MG/DL [facility] Calcium 7.9 (L) 8.5 - 10.6 MG/DL [facility] Total Protein 5.0 (L) 6.0 - 8.0 G/DL [facility] Total Bilirubin 0.4 0.3 - 1.2 MG/DL [facility] Albumin 2.9 (L) 3.5 - 5.0 G/DL [facility] Alk Phosphatase 47 25 - 110 U/L [facility] AST (SGOT) 24 7 - 40 U/L [facility] CO2 29 21 - 30 MMOL/L [facility] ALT (SGPT) 9 7 - 56 U/L [facility] Anion Gap 4 3 - 12 [facility] eGFR Non 41 (L) >60 mL/min [facility] Comment: [place] The eGFR is not validated f or use in drug dosing adjustments. Continue to use estimated creatinine clearance per dosing reference text. Please contact the Clinical Pharmacist for questions. eGFR 50 (L) >60 mL/min [facility] [place] Comment: The eGFR is not validated for use in drug dosing adjustments. Continue to use estimated creatinine clearance per dosing reference text. Please contact the Clinical Pharmacist for questions. Specimen Blood Performing Organization Address City/State/ZIP Code P curry Number MAIN LAB [address] [place] [address] * CBC (05/27/2021 4:17 AM CDT) White Blood 13.8 (H) 4.5 - 11.0 K/UL MAIN LAB Cells RBC 2.08 (L) 4.0 - 5.0 M/UL MAIN LAB Hemoglobin 6.6 (L) 12.0 - 15.0 GM/DL MAIN LAB Hematocrit 20.1 (L) 36 - 45 % MAIN LAB MCV 96.5 80 - 100 FL MAIN LAB MCH 31.8 26 - 34 PG MAIN LAB MCHC 32.9 32.0 - 36.0 G/DL MAIN LAB RDW 17.9 (H) 11 - 15 % MAIN LAB Platelet Count 93 (L) 150 - 400 K/UL MAIN LAB MPV 9.4 7 - 11 FL MAIN LAB Specimen Blood Performing Organization Address City/State/ZIP Code P curry Number [facility] [address] [place] [address] * POC GLUCOSE (05/27/2021 2:21 AM CDT) Glucose, POC 287 (H) 70 - 100 MG/DL [facility] Specimen Performing Organization Address City/[facility]/ZIP Code P curry Number [facility] [address] [place] [address] * POC GLUCOSE (05/26/2021 9:25 PM CDT) Glucose, POC 227 (H) 70 - 100 MG/DL [facility] Specimen Performing Organization Address [facility]/ZIP Code P curry Number [facility] [address] [place] [address] * POC GLUCOSE (05/26/2021 5:31 PM CDT) Glucose, POC 307 (H) 70 - 100 MG/DL MAIN LAB Specimen Performing Organization Address [facility] Code P curry Number [facility] [address] [place] [address] * FOOT 2 VIEW BILATERAL (05/26/2021 1:19 [...] on 05/26/2021 2:22 PM. Performing Organization Address City/[facility] Code P curry Number [facility] RAD RESULTS [...] on 05/26/2021 2:22 PM. Performing Organization Address City/[facility] Code P curry Number [facility] RAD RESULTS * POC GLUCOSE (05/26/2021 11:59 AM CDT) Glucose, POC 262 (H) 70 - 100 MG/DL [facility] Specimen Performing Organization Address City/[facility] Code P curry Number [facility] [address] [place] [address] * POC GLUCOSE (05/26/2021 7:27 AM CDT) Glucose, POC 173 (H) 70 - 100 MG/DL [facility] Specimen Performing Organization Address [facility] P curry Number [facility] [address] [place] [address] * PHOSPHORUS (05/26/2021 5:58 AM CDT) Phosphorus 4.0 2.0 - 4.5 MG/DL [facility] Specimen Blood Performing Organization Address City/State/ZIP Code P curry Number [facility] [address] [place] [address] * MAGNESIUM (05/26/2021 5:58 AM CDT) Magnesium 1.9 1.6 - 2.6 mg/dL [facility] Specimen Blood Performing Organization Address City/State/ZIP Code P curry Number [facility] [address] [place] [address] * COMPREHENSIVE METABOLIC PANEL (05/26/2021 5:58 AM CDT) Sodium 136 (L) 137 - 147 MMOL/L [facility] Potassium 4.9 3.5 - 5.1 MMOL/L [facility] Chloride 102 98 - 110 MMOL/L [facility] Glucose 182 (H) 70 - 100 MG/DL [facility] Blood Urea 25 7 - 25 MG/DL [facility] Nitrogen Creatinine 1.23 (H) 0.4 - 1.00 MG/DL [facility] Calcium 7.9 (L) 8.5 - 10.6 MG/DL [facility] Total Protein 5.2 (L) 6.0 - 8.0 G/DL [facility] Total Bilirubin 0.4 0.3 - 1.2 MG/DL [facility] Albumin 3.1 (L) 3.5 - 5.0 G/DL [facility] Alk Phosphatase 45 25 - 110 U/L [facility] AST (SGOT) 26 7 - 40 U/L [facility] CO2 25 21 - 30 MMOL/L [facility] ALT (SGPT) 11 7 - 56 U/L [facility] Anion Gap 9 3 - 12 [facility] eGFR Non 43 (L) >60 mL/min [facility] Comment: [place] The eGFR is not validated f or use in drug dosing adjustments. Continue to use estimated creatinine clearance per dosing reference text. Please contact the Clinical Pharmacist for questions. eGFR 52 (L) >60 mL/min [facility] [place] Comment: The eGFR is not validated for use in drug dosing adjustments. Continue to use estimated creatinine clearance per dosing reference text. Please contact the Clinical Pharmacist for questions. Specimen Blood Performing Organization Address City/[facility]/ZIP Code P curry Number MAIN LAB [address] [place] [address] * CBC (05/26/2021 5:58 AM CDT) White Blood 30.2 (H) 4.5 - 11.0 K/UL [facility] Cells RBC 2.61 (L) 4.0 - 5.0 M/UL [facility] Hemoglobin 8.3 (L) 12.0 - 15.0 GM/DL [facility] Hematocrit 25.4 (L) 36 - 45 % [facility] MCV 97.0 80 - 100 FL [facility] MCH 31.9 26 - 34 PG [facility] MCHC 32.8 32.0 - 36.0 G/DL [facility] RDW 17.4 (H) 11 - 15 % [facility] Platelet Count 105 (L) 150 - 400 K/UL [facility] MPV 9.7 7 - 11 FL [facility] Specimen Blood Performing Organization Address [facility] Code P curry Number [facility] [address] [place] [id number] * POC GLUCOSE (05/26/2021 3:27 AM CDT) Glucose, POC 209 (H) 70 - 100 MG/DL [facility] Specimen Performing Organization Address City/[facility]/ZIP Code P curry Number [facility] [address] [place] [address] * POC GLUCOSE (05/25/2021 10:37 PM CDT) Glucose, POC 252 (H) 70 - 100 MG/DL [facility] Specimen Performing Organization Address City/[facility]/ZIP Code P curry Number [facility] [address] [place] [address] * POC GLUCOSE (05/25/2021 9:07 PM CDT) Glucose, POC 257 (H) 70 - 100 MG/DL [facility] Specimen Performing Organization Address [facility]/ZIP Code P curry Number [facility] [address] [place] [address] * POC GLUCOSE (05/25/2021 5:45 PM CDT) Glucose, POC 226 (H) 70 - 100 MG/DL [facility] Specimen Performing Organization Address City/[facility]/ZIP Code P curry Number [facility] [address] [place] [address] * POC GLUCOSE (05/25/2021 2:55 PM CDT) Glucose, POC 238 (H) 70 - 100 MG/DL [facility] Specimen Performing Organization Address [facility]/ZIP Code P curry Number [facility] [address] [place] [address] * FLUORO MOBILE IN OR (05/25/2021 1:21 PM CDT) Specimen Narrative Performed At This order has been auto finalized and does not conta in a result. NADER CARVAJAL Performing Organization Address City/[facility] Code P curry Number STACIELLA CARVAJAL * POC GLUCOSE (05/25/2021 10:17 AM CDT) Glucose, POC 179 (H) 70 - 100 MG/DL [facility] Specimen Performing Organization Address [facility]/ZIP Code P curry Number MAIN LAB [address] [place] [address] * POC GLUCOSE (05/25/2021 7:55 AM CDT) Glucose, POC 187 (H) 70 - 100 MG/DL [facility] Specimen Performing Organization Address [facility] Code P curry Number [facility] [address] [place] [address] * PHOSPHORUS (05/25/2021 4:40 AM CDT) Phosphorus 3.8 2.0 - 4.5 MG/DL [facility] Specimen Blood Performing Organization Address City/[facility]/ZIP Code P curry Number [facility] [address] [place] [address] * MAGNESIUM (05/25/2021 4:40 AM CDT) Magnesium 1.8 1.6 - 2.6 mg/dL MAIN LAB Specimen Blood Performing Organization Address City/[facility]/ZIP Code P curry Number MAIN LAB [address] [place] [address] * COMPREHENSIVE METABOLIC PANEL (05/25/2021 4:40 AM CDT) Sodium 139 137 - 147 MMOL/L [facility] Potassium 4.7 3.5 - 5.1 MMOL/L [facility] Chloride 103 98 - 110 MMOL/L [facility] Glucose 188 (H) 70 - 100 MG/DL [facility] Blood Urea 22 7 - 25 MG/DL [facility] Nitrogen Creatinine 1.38 (H) 0.4 - 1.00 MG/DL [facility] Calcium 8.6 8.5 - 10.6 MG/DL [facility] Total Protein 5.7 (L) 6.0 - 8.0 G/DL [facility] Total Bilirubin 0.7 0.3 - 1.2 MG/DL [facility] Albumin 3.5 3.5 - 5.0 G/DL [facility] Alk Phosphatase 62 25 - 110 U/L [facility] AST (SGOT) 22 7 - 40 U/L [facility] CO2 28 21 - 30 MMOL/L [facility] ALT (SGPT) 14 7 - 56 U/L [facility] Anion Gap 8 3 - 12 [facility] eGFR Non 38 (L) >60 mL/min [facility] Comment: [place] The eGFR is not validated f or use in drug dosing adjustments. Continue to use estimated creatinine clearance per dosing reference text. Please contact the Clinical Pharmacist for questions. eGFR 45 (L) >60 mL/min [facility] [place] Comment: The eGFR is not validated for use in drug dosing adjustments. Continue to use estimated creatinine clearance per dosing reference text. Please contact the Clinical Pharmacist for questions. Specimen Blood Performing Organization Address City/State/ZIP Code P curry Number [facility] [address] [place] [address] * CBC (05/25/2021 4:40 AM CDT) White Blood 20.4 (H) 4.5 - 11.0 K/UL [facility] Cells RBC 3.37 (L) 4.0 - 5.0 M/UL [facility] Hemoglobin 10.9 (L) 12.0 - 15.0 GM/DL [facility] Hematocrit 32.6 (L) 36 - 45 % [facility] MCV 96.7 80 - 100 FL [facility] MCH 32.3 26 - 34 PG [facility] MCHC 33.4 32.0 - 36.0 G/DL [facility] RDW 17.6 (H) 11 - 15 % [facility] Platelet Count 104 (L) 150 - 400 K/UL MAIN LAB MPV 9.5 7 - 11 FL [facility] Specimen Blood Performing Organization Address City/[facility]/ZIP Code P curry Number [facility] [address] [place] [address] * POC GLUCOSE (05/25/2021 2:42 AM CDT) Glucose, POC 157 (H) 70 - 100 MG/DL [facility] Specimen Performing Organization Address City/[facility]/ZIP Code P curry Number [facility] [address] [place] [address] * POC GLUCOSE (05/24/2021 9:24 PM CDT) Glucose, POC 196 (H) 70 - 100 MG/DL [facility] Specimen Performing Organization Address [facility] Code P curry Number [facility] [address] [place] [address] * POC GLUCOSE (05/24/2021 5:01 PM CDT) Glucose, POC 260 (H) 70 - 100 MG/DL [facility] Specimen Performing Organization Address [facility] Code P curry Number MAIN LAB [address] [place] [address] * POC GLUCOSE (05/24/2021 11:54 AM CDT) Glucose, POC 169 (H) 70 - 100 MG/DL [facility] Specimen Performing Organization Address [facility] P curry Number MAIN LAB [address] [place] [address] * TYPE & CROSSMATCH (05/24/2021 10:21 AM CDT) Units Ordered 3 MAIN LAB Crossmatch 05/27/2021,2359 MAIN LAB Expires Record Check FOUND MAIN LAB ABO/RH(D) A POS MAIN LAB Antibody Screen NEG MAIN LAB Electronic YES MAIN LAB Crossmatch Unit Number [id number] MAIN LAB Blood Component RBC,ADSOL,LEUKO REDUCED [facility] Type Unit Division 00 [facility] Status OF Unit TRANSFUSED [facility] ISSUE DATE TIME [id number] [facility] PRODUCT CODE [id number] [facility] BLOOD TYPE A POS MAIN LAB CODING STATUS 6200 [facility]IN [facility] BLOOD [id number] [facility] EXPIRATION DATE Transfusion OK TO TRANSFUSE [facility] Status Crossmatch COMPATIBLE,ELECTRONIC [facility] Result Specimen Arm, Right Performing Organization Address [facility] Code P curry Number [facility] [address] [place] [address] * POC GLUCOSE (05/24/2021 8:23 AM CDT) Glucose, POC 175 (H) 70 - 100 MG/DL [facility] Specimen Performing Organization Address [facility] P curry Number [facility] [address] [place] [address] * HEMOGLOBIN A1C (05/24/2021 5:51 AM CDT) Hemoglobin A1C 8.1 (H) 4.0 - 6.0 % [facility] Comment: The ADA recommends that most patients with type 1 and type 2 diabetes maintain an A1c level <7%. Specimen Blood Performing Organization Address [facility] P curry Number [facility] [address] [place] [id number] * PHOSPHORUS (05/24/2021 5:51 AM CDT) Phosphorus 4.9 (H) 2.0 - 4.5 MG/DL [facility]IN [facility] Specimen Blood Performing Organization Address [facility] P curry Number [facility] [address] [place] [id number] * MAGNESIUM (05/24/2021 5:51 AM CDT) Magnesium 2.0 1.6 - 2.6 mg/dL [facility] Specimen Blood Performing Organization Address [facility] P curry Number [facility] [address] [place] [address] * COMPREHENSIVE METABOLIC PANEL (05/24/2021 5:51 AM CDT) Sodium 140 137 - 147 MMOL/L [facility] Potassium 4.3 3.5 - 5.1 MMOL/L [facility] Chloride 104 98 - 110 MMOL/L [facility] Glucose 170 (H) 70 - 100 MG/DL [facility] Blood Urea 27 (H) 7 - 25 MG/DL [facility] Nitrogen Creatinine 1.37 (H) 0.4 - 1.00 MG/DL [facility] Calcium 9.1 8.5 - 10.6 MG/DL [facility] Total Protein 5.8 (L) 6.0 - 8.0 G/DL [facility] Total Bilirubin 0.5 0.3 - 1.2 MG/DL [facility] Albumin 3.6 3.5 - 5.0 G/DL [facility]IN [facility] Alk Phosphatase 67 25 - 110 U/L [facility] AST (SGOT) 28 7 - 40 U/L [facility]IN [facility] CO2 28 21 - 30 MMOL/L [facility]IN [facility] ALT (SGPT) 17 7 - 56 U/L [facility]IN [facility] Anion Gap 8 3 - 12 K[facility] MAIN LAB eGFR Non 38 (L) >60 mL/min [facility] Comment: [place] The eGFR is not validated f or use in drug dosing adjustments. Continue to use estimated creatinine clearance per dosing reference text. Please contact the Clinical Pharmacist for questions. eGFR 46 (L) >60 mL/min [facility] [place] Comment: The eGFR is not validated for use in drug dosing adjustments. Continue to use estimated creatinine clearance per dosing reference text. Please contact the Clinical Pharmacist for questions. Specimen Blood Performing Organization Address City/State/ZIP Code P curry Number MAIN LAB [address] [place] [address] * CBC (05/24/2021 5:51 AM CDT) [facility] White Blood 20.8 (H) 4.5 - 11.0 K/UL MAIN LAB Cells RBC 3.71 (L) 4.0 - 5.0 M/UL [facility] MAIN [facility] Hemoglobin 11.6 (L) 12.0 - 15.0 GM/DL MAIN LAB Hematocrit 36.2 36 - 45 % MAIN LAB MCV 97.7 80 - 100 FL MAIN LAB MCH 31.4 26 - 34 PG MAIN LAB MCHC 32.1 32.0 - 36.0 G/DL MAIN LAB RDW 18.2 (H) 11 - 15 % [facility] MAIN [facility] Platelet Count 121 (L) 150 - 400 K/UL MAIN LAB MPV 9.3 7 - 11 FL MAIN LAB Specimen Blood Performing Organization Address City/[facility]/ZIP Code P curry Number MAIN LAB [address] [place] [address] * POC GLUCOSE (05/24/2021 3:11 AM CDT) Glucose, POC 178 (H) 70 - 100 MG/DL [facility]IN [facility] Specimen Performing Organization Address [facility] Code P curry Number [facility] MAIN [facility] [address] [place] [address] * UA REFLEX LABEL (05/23/2021 10:45 PM CDT) UA Reflex Criteria for reflex to culture [facility] Culture are WBC>10, Positive Nitrit e, and/or >=+1 leukocytes. If quantity is not sufficient, an addendum will follow. Specimen Urine Performing Organization Address City/[facility] P curry Number [facility] MAIN [facility] [address] [place] [address] * URINALYSIS MICROSCOPIC REFLEX TO CULTURE (05/23/2021 10:45 PM CDT) WBCs,UA 0-2 0 - 2 /HPF [facility] MAIN [facility] RBCs,UA 2-10 0 - 3 /HPF [facility]IN [facility] Comment,UA Criteria for reflex to culture [facility] are WBC>10, Positive Nitrite, and/or >=+1 leukocytes. If quantity is not sufficient, an addendum will follow. MucousUA TRACE [facility] MAIN [facility] Specimen Urine Performing Organization Address [facility] P curry Number [facility] MAIN [facility] [address] [place] [address] * URINALYSIS DIPSTICK REFLEX TO CULTURE (05/23/2021 10:45 PM CDT) Color,UA YELLOW [facility] MAIN [facility] Turbidity,UA 1+ (A) CLEAR-CLEAR [facility]IN [facility] Specific 1.028 1.003 - 1.035 K[facility] MAIN LAB [place]-Urine pH,UA 5.0 5.0 - 8.0 [facility] MAIN [facility] Protein,UA NEG NEG-NEG [facility] MAIN [facility] Glucose,UA 3+ (A) NEG-NEG [facility] Ketones,UA TRACE (A) NEG-NEG [facility]IN [facility] Bilirubin,UA NEG NEG-NEG [facility]IN [facility] Blood,UA 1+ (A) NEG-NEG [facility] Urobilinogen,UA NORMAL NORM-NORMAL [facility]IN [facility] Nitrite,UA NEG NEG-NEG [facility]IN [facility] Leukocytes,UA NEG NEG-NEG [facility]IN [facility] Urine Ascorbic NEG NEG-NEG [facility] MAIN LAB Acid, UA Specimen Urine Performing Organization Address [facility]/ZIP Code P curry Number [facility] MAIN [facility] [address] [place] [address] * CT LOWER EXTREM WO CONT LEFT [...] curry Number KU RAD RESULTS * CT ABD/PELV WO CONTRAST (05/23/2021 10:22 [...] on 05/23/2021 10:29 PM. Performing Organization Address [facility] Code P curry Number RAD RESULTS * POC GLUCOSE (05/23/2021 9:04 PM CDT) Glucose, POC 131 (H) 70 - 100 MG/DL MAIN LAB Specimen Performing Organization Address [facility] P curry Number MAIN LAB [address] [place] [address] * PHOSPHORUS (05/23/2021 8:45 PM CDT) Phosphorus 4.0 2.0 - 4.5 MG/DL MAIN LAB Specimen Blood Performing Organization Address [facility] P curry Number MAIN LAB [address] [place] [address] * MAGNESIUM (05/23/2021 8:45 PM CDT) Magnesium 2.0 1.6 - 2.6 mg/dL [facility] MAIN [facility] Specimen Blood Performing Organization Address City/State/ZIP Code P curry Number [facility] MAIN [facility] [address] [place] [address] * COMPREHENSIVE METABOLIC PANEL (05/23/2021 8:45 PM CDT) Sodium 141 137 - 147 MMOL/L [facility] MAIN [facility] Potassium 4.6 3.5 - 5.1 MMOL/L [facility]IN [facility] Chloride 106 98 - 110 MMOL/L [facility] MAIN [facility] Glucose 131 (H) 70 - 100 MG/DL [facility]IN [facility] Blood Urea 23 7 - 25 MG/DL [facility]IN [facility] Nitrogen Creatinine 1.23 (H) 0.4 - 1.00 MG/DL [facility] MAIN LAB Calcium 8.9 8.5 - 10.6 MG/DL [facility] Total Protein 6.1 6.0 - 8.0 G/DL [facility] Total Bilirubin 0.6 0.3 - 1.2 MG/DL [facility] Albumin 3.8 3.5 - 5.0 G/DL [facility] Alk Phosphatase 64 25 - 110 U/L [facility] AST (SGOT) 29 7 - 40 U/L [facility] CO2 25 21 - 30 MMOL/L [facility] ALT (SGPT) 19 7 - 56 U/L [facility] Anion Gap 10 3 - 12 [facility] eGFR Non 43 (L) >60 mL/min [facility] Comment: [place] The eGFR is not validated f or use in drug dosing adjustments. Continue to use estimated creatinine clearance per dosing reference text. Please contact the Clinical Pharmacist for questions. eGFR 52 (L) >60 mL/min [facility] [place] Comment: The eGFR is not validated for use in drug dosing adjustments. Continue to use estimated creatinine clearance per dosing reference text. Please contact the Clinical Pharmacist for questions. Specimen Blood Performing Organization Address City/State/ZIP Code P curry Number [facility] [address] [place] [address] * CBC (05/23/2021 8:45 PM CDT) White Blood 19.5 (H) 4.5 - 11.0 K/UL [facility] Cells RBC 3.94 (L) 4.0 - 5.0 M/UL [facility] Hemoglobin 12.5 12.0 - 15.0 GM/DL [facility] Hematocrit 38.7 36 - 45 % [facility] MCV 98.2 80 - 100 FL [facility] MCH 31.7 26 - 34 PG [facility] MCHC 32.3 32.0 - 36.0 G/DL [facility] RDW 18.2 (H) 11 - 15 % [facility] Platelet Count 127 (L) 150 - 400 K/UL [facility] MPV 9.4 7 - 11 FL [facility] Specimen Blood Performing Organization Address City/State/ZIP Code P curry Number [facility] [address] [place] [address] * TELEMETRY STRIPS-SCAN (05/23/2021 12:00 AM CDT) Narrative Performed At This result has an attachment that is n ot available. Ordered by an unspecified provider. 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 (HCC) ABLA (acute blood loss anemia) Coronary artery disease involving nativ e coronary artery of [place] heart without angina pectoris 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 Primary osteoarthritis of left knee Primary localized osteoarthrosis, lower leg Ischemic cardiomyopathy Other specified forms of chronic ischem ic heart disease documented in this encounter Admitting Diagnoses Diagnosis Trauma Injury, other and unspecified, unspecif ied site documented in this encounter Administered Medications Action Date Dose Rate Site Medication Order MAR Action 05/25/2021 3:29 PM CDT 1,000 mg acetaminophen (TYLENOL EXTRA STRENGTH) Given tablet 1,000 mg 1,000 mg, Oral, ONCE, 1 dose, On Mon05/25/21 at 1530, TOTAL ACETAMINOPHEN DOSE NOT TO EXCEED 4GM DAILY 05/26/2021 9:21 AM CDT 650 mg acetaminophen (TYLENOL) tablet 650 mg Given 650 mg, Oral, EVERY 4 HOURS PRN, Starting on Mon05/23/21 at 2033, Until Mon05/26/21 at 0947, Pain non-opioid: may be used alone or in combination wit h opioid analgesia, TOTAL ACETAMINOPHEN DOSE NOT TO EXCEED 4GM DAILY 650 mg Given 05/26/2021 5:32 AM CDT 650 mg Given 05/25/2021 5:48 AM CDT 650 mg Given 05/24/2021 11:37 PM CDT 650 mg Given 05/24/2021 7:12 PM CDT 650 mg Given 05/24/2021 2:35 PM CDT 650 mg Given 05/24/2021 10:33 AM CDT 650 mg Given 05/24/2021 5:45 AM CDT 06/01/2021 8:30 AM CDT 650 mg acetaminophen (TYLENOL) tablet 650 mg Given 650 mg, Oral, EVERY 6 HOURS WHILE AWAKE, First dose on Mon05/30/21 at 0915, Until Discontinued, TOTAL ACETAMINOPHEN DOSE NOT TO EXCEED 4GM DAILY 650 mg Given 05/31/2021 8:05 PM CDT 650 mg Given 05/31/2021 3:31 PM CDT 650 mg Given 05/31/2021 8:37 AM CDT 650 mg Given 05/30/2021 9:41 PM CDT 650 mg Given 05/30/2021 3:11 PM CDT 650 mg Given 05/30/2021 9:46 AM CDT albuterol 0.083% (PROVENTIL) nebulizer solution 2.5 mg 2.5 mg, Inhalation, RT EVERY 4 HOURS PRN, Starting on Mon05/23/21 at 2155, Until Mon06/01/21 at 1307, Signs and Symptoms of Acute Airway Obstruction, When administered by RT, will be per RT policy. 06/01/2021 8:30 AM CDT 300 mg allopurinoL (ZYLOPRIM) tablet 300 mg Given 300 mg, Oral, DAILY, First dose on Mon05/24/21 at 0900, Until Discontinued 300 mg Given 05/31/2021 8:37 AM CDT 300 mg Given 05/30/2021 9:31 AM CDT 300 mg Given 05/29/2021 9:24 AM CDT 300 mg Given 05/28/2021 8:36 AM CDT 300 mg Given 05/27/2021 9:05 AM CDT 300 mg Given 05/26/2021 9:15 AM CDT 300 mg Given 05/25/2021 8:52 AM CDT 300 mg Given 05/24/2021 9:16 AM CDT 05/28/2021 9:50 PM CDT 1 mg ALPRAZolam (XANAX) tablet 1 mg Given 1 mg, Oral, TWICE DAILY PRN, Starting o n 05/26/21 at 1508, Until 05/29/21 at 1024, Anxiety PO 1 mg Given 05/26/2021 4:12 PM CDT 06/01/2021 8:30 AM CDT 81 mg aspirin EC tablet 81 mg Given 81 mg, Oral, DAILY, First dose on 05/24/21 at 1830, Until Discontinued 81 mg Given 05/31/2021 8:38 AM CDT 81 mg Given 05/30/2021 9:31 AM CDT 81 mg Given 05/29/2021 9:22 AM CDT 81 mg Given 05/28/2021 8:35 AM CDT 81 mg Given 05/27/2021 9:05 AM CDT 81 mg Given 05/26/2021 9:14 AM CDT 06/01/2021 8:34 AM CDT 3.125 mg carvediloL (COREG) tablet 3.125 mg Given 3.125 mg, Oral, TWICE DAILY, First dose (after last modification) on Mon 1 at 2100, Until Discontinued, Hold for heart rate < 60 bpm or systolic BP < 90 3.125 mg Given 05/30/2021 9:42 PM CDT 05/30/2021 9:33 AM CDT 6.25 mg carvediloL (COREG) tablet 6.25 mg Given 6.25 mg, Oral, TWICE DAILY, First dose on 05/23/21 at 2145, Until Discontinued, Hold for heart rate < 60 bpm or systolic BP < 90 6.25 mg Given 05/29/2021 9:51 PM CDT 6.25 mg Given 05/29/2021 9:24 AM CDT 6.25 mg Given 05/28/2021 9:50 PM CDT 6.25 mg Given 05/28/2021 8:36 AM CDT 6.25 mg Given 05/27/2021 9:28 PM CDT 6.25 mg Given 05/27/2021 9:04 AM CDT 6.25 mg Given 05/26/2021 10:20 PM CDT 6.25 mg Given 05/26/2021 9:15 AM CDT 6.25 mg Given 05/25/2021 9:04 PM CDT 6.25 mg Given 05/25/2021 8:52 AM CDT 6.25 mg Given 05/24/2021 9:28 PM CDT 6.25 mg Given 05/24/2021 9:17 AM CDT 6.25 mg Given 05/23/2021 10:36 PM CDT 05/26/2021 3:26 AM CDT 2 g ceFAZolin (ANCEF) IVP 2 g Given 2 g, Intravenous, EVERY 8 HOURS, 2 doses, First dose on Mon05/25/21 at 1900, Last dose on Mon05/26/21 at 0300, IV PUSH -- RECONSTITUTE each 1 g vial b y adding 10 mLs of STERILE WATER (SW) 2 g Given 05/25/2021 6:45 PM CDT 06/01/2021 8:31 AM CDT 5,000 Units cholecalciferol (VITAMIN D-3) tablet Given 5,000 Units 5,000 Units, Oral, DAILY, First dose on Mon05/24/21 at 1830, Until Discontinued 5,000 Units Given 05/31/2021 8:37 AM CDT 5,000 Units Given 05/30/2021 9:30 AM CDT 5,000 Units Given 05/29/2021 9:22 AM CDT 5,000 Units Given 05/28/2021 8:36 AM CDT 5,000 Units Given 05/27/2021 9:05 AM CDT 5,000 Units Given 05/26/2021 9:14 AM CDT 5,000 Units Given 05/25/2021 8:53 AM CDT 5,000 Units Given 05/24/2021 9:34 PM CDT 05/27/2021 9:03 AM CDT 0.6 mg colchicine (COLCRYS) tablet 0.6 mg Given 0.6 mg, Oral, DAILY PRN, Starting on Mon05/23/21 at 2032, Until Mon06/01/21 at 1307, Pain PO 06/01/2021 8:29 AM CDT 30 mg Arm, Rig ht enoxaparin (LOVENOX) syringe 30 mg Given 30 mg, Subcutaneous, TWICE DAILY, First dose on Mon05/23/21 at 2100, Until Discontinued, For patients undergoing surgery: Consult physician in advance - - enoxaparin is an anticoagulant and may need to be held for 12hr prior to surgery or invasive procedures. NOTE: This is a HIGH ALERT Medication. 30 mg Abdominal Tissue Given 05/31/2021 8:05 PM CDT 30 mg Abdominal Tissue Given 05/31/2021 8:38 AM CDT 30 mg Abdominal Tissue Given 05/30/2021 9:40 PM CDT 30 mg Abdomen:RLQ Given 05/30/2021 9:37 AM CDT 30 mg Abdominal Tissue Given 05/29/2021 9:49 PM CDT 30 mg Abdomen:LLQ Given 05/29/2021 9:25 AM CDT 30 mg Abdomen:LLQ Given 05/28/2021 9:50 PM CDT 30 mg Arm, Right Given 05/28/2021 8:35 AM CDT 30 mg Abdomen:LLQ Given 05/27/2021 9:29 PM CDT 30 mg Abdominal Tissue Given 05/27/2021 9:02 AM CDT 30 mg Abdomen:LLQ Given 05/26/2021 10:18 PM CDT 30 mg Abdominal Tissue Given 05/26/2021 9:14 AM CDT 30 mg Abdomen:RLQ Given 05/25/2021 9:06 PM CDT 30 mg Abdomen:RLQ Given 05/24/2021 9:29 PM CDT 30 mg Abdomen:LLQ Given 05/23/2021 10:37 PM CDT 06/01/2021 8:30 AM CDT 10 mg ezetimibe (ZETIA) tablet 10 mg Given 10 mg, Oral, DAILY, First dose on Mon05/24/21 at 1830, Until Discontinued 10 mg Given 05/31/2021 8:37 AM CDT 10 mg Given 05/30/2021 9:31 AM CDT 10 mg Given 05/29/2021 9:23 AM CDT 10 mg Given 05/28/2021 8:36 AM CDT 10 mg Given 05/27/2021 9:05 AM CDT 10 mg Given 05/26/2021 9:14 AM CDT 10 mg Given 05/25/2021 8:52 AM CDT 10 mg Given 05/24/2021 6:11 PM CDT 05/25/2021 3:39 PM CDT 25 mcg fentaNYL citrate PF (SUBLIMAZE) Given injection 25 mcg 25 mcg, Intravenous, EVERY 5 MIN PRN, Starting on Mon05/25/21 at 1323, Until Mon05/25/21 at 1734, Pain Injectable, For Pain Score < 4, Maximum total dose of 200 mcg Hold for RR < 10, PACU (only ) 05/24/2021 9:36 AM CDT 50 mcg fentaNYL citrate PF (SUBLIMAZE) Given injection 25-50 mcg 25-50 mcg, Intravenous, EVERY 1 HOUR PRN, Starting on Mon05/23/21 at 1851, Until Mon05/26/21 at 1232, Pain Injectable 50 mcg Given 05/24/2021 3:08 AM CDT 50 mcg Given 05/23/2021 10:37 PM CDT 50 mcg Given 05/23/2021 7:47 PM CDT 05/28/2021 8:36 AM CDT 100 mg gabapentin (NEURONTIN) capsule 100 mg Given 100 mg, Oral, TWICE DAILY, First dose o n Mon05/23/21 at 2145, Until Discontinued 100 mg Given 05/27/2021 9:28 PM CDT 100 mg Given 05/27/2021 9:05 AM CDT 100 mg Given 05/26/2021 10:20 PM CDT 100 mg Given 05/26/2021 9:15 AM CDT 100 mg Given 05/25/2021 9:04 PM CDT 100 mg Given 05/25/2021 8:52 AM CDT 100 mg Given 05/24/2021 9:28 PM CDT 100 mg Given 05/24/2021 9:17 AM CDT 100 mg Given 05/23/2021 10:36 PM CDT 05/31/2021 8:05 PM CDT 100 mg gabapentin (NEURONTIN) capsule 100 mg Given 100 mg, Oral, AT BEDTIME DAILY, First dose on Mon05/28/21 at 2100, Until Discontinued 100 mg Given 05/30/2021 9:41 PM CDT 100 mg Given 05/29/2021 9:50 PM CDT 100 mg Given 05/28/2021 9:51 PM CDT 06/01/2021 8:30 AM CDT 200 mg gabapentin (NEURONTIN) capsule 200 mg Given 200 mg, Oral, DAILY, First dose on Mon05/29/21 at 0900, Until Discontinued 200 mg Given 05/31/2021 8:37 AM CDT 200 mg Given 05/30/2021 9:33 AM CDT 200 mg Given 05/29/2021 9:23 AM CDT 05/25/2021 4:22 PM CDT 1 mg haloperidol lactate (HALDOL) injection 1 Given mg 1 mg, Intravenous, ONCE PRN, 1 dose, Starting on Mon05/25/21 at 1323, Until Mon05/25/21 at 1622, Other..., Nausea and Vomiting, First line agent. DO NOT ADMINISTER if given intraoperatively, PACU (only) 05/30/2021 4:51 AM CDT 1 tablet HYDROcodone/acetaminophen (NORCO) 5/325 Given mg tablet 1-2 tablet 1-2 tablet, Oral, EVERY 4 HOURS PRN, Starting on Mon05/26/21 at 0947, Until Mon05/30/21 at 0811, Pain PO, TOTAL ACETAMINOPHEN DOSE NOT TO EXCEED 4GM DAILY NOTE: This is a HIGH ALERT Medication. 1 tablet Given 05/30/2021 12:03 AM CDT 1 tablet Given 05/29/2021 11:58 AM CDT 1 tablet Given 05/29/2021 9:40 AM CDT 1 tablet Given 05/29/2021 5:40 AM CDT 1 tablet Given 05/28/2021 6:49 PM CDT 1 tablet Given 05/28/2021 3:04 PM CDT 1 tablet Given 05/28/2021 10:25 AM CDT 1 tablet Given 05/28/2021 6:49 AM CDT 1 tablet Given 05/27/2021 9:28 PM CDT 1 tablet Given 05/27/2021 3:27 PM CDT 1 tablet Given 05/27/2021 11:14 AM CDT 2 tablets Given 05/27/2021 2:18 AM CDT 2 tablets Given 05/26/2021 7:19 PM CDT 2 tablets Given 05/26/2021 2:40 PM CDT 06/01/2021 1:06 AM CDT 25 mg hydrOXYzine HCL (ATARAX) tablet 25 mg Given 25 mg, Oral, THREE TIMES DAILY PRN, Starting on 05/29/21 at 1024, Until Tu06/01/21 at 1307, Anxiety PO, Itchin g PO 05/30/2021 6:00 PM CDT 600 mg ibuprofen (MOTRIN) tablet 600 mg Given 600 mg, Oral, THREE TIMES DAILY WITH MEALS, 3 doses, First dose on 05/30/21 at 0915, Last dose on 05/30/21 at 1800, TOTAL IBUPROFEN DOSE NOT TO EXCEED 3.2GM PER DAY 600 mg Given 05/30/2021 11:50 AM CDT 600 mg Given 05/30/2021 9:33 AM CDT 05/29/2021 11:52 AM CDT 4 Units Arm, Lef t insulin aspart (U-100) (NOVOLOG FLEXPEN Given U-100 INSULIN) injection PEN 0-12 Units 0-12 Units, Subcutaneous, FIVE TIMES DAILY 2200, First dose on 05/23/21 a t 2200, Until Discontinued, -POC glucose 181-220mg/dL at , administer 2 units insulin, at 22, 03* administer 0 units. -POC glucose 221-260mg/dL at , , administer 4 units insulin, at 22, 03* administer 2 units. -POC glucos e 261-300mg/dL at , administer 6 units insulin, at 22, 03* administer 4 units. -POC glucose 301-350mg/dL at , , administer 8 units insulin, at 22, 03* administer 6 units. -POC glucos e 351-400mg/dL at administer 1 0 units insulin, at 22, 03* administer 8 units. -POC glucose >400mg/dL at , , administer 12 units insulin, at 22, 03* administer 10 units. *only if ordered 5x's daily For [...] uncheck "Do not dispense" 6 Units Arm, Left Given 05/28/2021 6:00 PM CDT 8 Units Arm, Right Given 05/28/2021 12:22 PM CDT 2 Units Arm, Right Given 05/28/2021 7:31 AM CDT 4 Units Abdomen:LLQ Given 05/27/2021 9:30 PM CDT 8 Units Arm, Left Given 05/27/2021 6:47 PM CDT 6 Units Arm, Right Given 05/27/2021 4:38 PM CDT 6 Units Abdominal Tissue Given 05/27/2021 12:42 PM CDT 2 Units Abdominal Tissue Given 05/27/2021 9:09 AM CDT 4 Units Arm, Left Given 05/27/2021 2:23 AM CDT 2 Units Arm, Left Given 05/26/2021 10:28 PM CDT 6 Units Ankle, Left Given 05/26/2021 6:11 PM CDT 6 Units Arm, Left Given 05/26/2021 12:01 PM CDT 2 Units Abdomen:LLQ Given 05/25/2021 10:38 PM CDT 4 Units Arm, Left Given 05/25/2021 3:03 PM CDT 2 Units Abdominal Tissue Given 05/25/2021 8:52 AM CDT 4 Units Abdominal Tissue Given 05/24/2021 6:11 PM CDT 05/31/2021 5:33 PM CDT 4 Units Arm, Rig ht insulin aspart (U-100) (NOVOLOG FLEXPEN Given U-100 INSULIN) injection PEN 0-24 Units 0-24 Units, Subcutaneous, BEFORE MEALS AND 2200, First dose on 05/29/21 at 1700, Until Discontinued, -POC glucose 181-220mg/dL at , , administer 4 units insulin, at 22, 03* administer 0 units. -POC glucose 221-260mg/dL at , , administer 8 units insulin, at 22, 03* administer 4 units. -POC glucos e 261-300mg/dL at , , administer 1 2 units insulin, at 22, 03* administer 8 units. -POC glucose 301-350mg/dL at , , administer 16 units insulin, at 22, 03* administer 12 units. -POC glucose 351-400mg/dL at , , administer 20 units insulin, at 22, 03* administer 16 units. -POC glucose >400mg/dL at 07, 11, 17 administer 24 units insulin, at 22, 03* administer 20 units. *only if ordered 5x's daily Fo r POCT glucose >350mg/dL give correction bolus and recheck POCT glucose in 2 hours. If POCT glucose at 2 hours >300mg/dL call physician for further orders. For patients who are not eatin g meals, continue to administer the appropriate correction factor. NOTE: This is a HIGH ALERT Medication., Dispense pens manually with initial order and then upon request. DO NOT uncheck "Do not dispense" 4 Units Abdominal Tissue Given 05/31/2021 12:56 PM CDT 4 Units Abdomen:LLQ Given 05/30/2021 11:50 AM CDT 4 Units Arm, Left Given 05/29/2021 9:52 PM CDT 4 Units Abdomen:LLQ Given 05/29/2021 6:04 PM CDT 05/27/2021 12:42 PM CDT 4 Units Abdomina l Tissue insulin aspart (U-100) (NOVOLOG FLEXPEN Given U-100 INSULIN) injection PEN 4 Units 4 Units, Subcutaneous, THREE TIMES MIRNA Y WITH MEALS, First dose on Mon05/26/21 a t 1830, Until Discontinued, Hold if NPO for procedure, unable to eat, or if FSB S < 70 mg/dL Give at start of meal. NOTE : This is a HIGH ALERT Medication., Dispense pens manually with initial order and then upon request. DO NOT uncheck "Do not dispense" 4 Units Abdominal Tissue Given 05/27/2021 9:10 AM CDT 4 Units Arm, Left Given 05/26/2021 6:12 PM CDT 05/28/2021 12:21 PM CDT 6 Units Arm, Rig ht insulin aspart (U-100) (NOVOLOG FLEXPEN Given U-100 INSULIN) injection PEN 6 Units 6 Units, Subcutaneous, THREE TIMES MIRNA Y WITH MEALS, First dose (after last modification) on Mon05/27/21 at 1800, Until Discontinued, Hold if NPO for procedure, unable to eat, or if FSBS < 70 mg/dL Give at start of meal. NOTE: This is a HIGH ALERT Medication., Dispense pens manually with initial order and then upon request. DO NOT uncheck "Do not dispense" 6 Units Arm, Right Given 05/28/2021 7:31 AM CDT 6 Units Arm, Left Given 05/27/2021 6:50 PM CDT 06/01/2021 9:44 AM CDT 8 Units Ankle, R ight insulin aspart (U-100) (NOVOLOG FLEXPEN Given U-100 INSULIN) injection PEN 8 Units 8 Units, Subcutaneous, THREE TIMES MIRNA Y WITH MEALS, First dose (after last modification) on Mon05/28/21 at 1800, Until Discontinued, Hold if NPO for procedure, unable to eat, or if FSBS < 70 mg/dL Give at start of meal. NOTE: This is a HIGH ALERT Medication., Dispense pens manually with initial order and then upon request. DO NOT uncheck "Do not dispense" 8 Units Arm, Right Given 05/31/2021 5:32 PM CDT 8 Units Abdominal Tissue Given 05/31/2021 12:56 PM CDT 8 Units Abdominal Tissue Given 05/31/2021 8:40 AM CDT 8 Units Arm, Right Given 05/30/2021 6:01 PM CDT 8 Units Abdomen:LLQ Given 05/30/2021 11:50 AM CDT 8 Units Abdomen:LLQ Given 05/30/2021 9:35 AM CDT 8 Units Abdomen:LLQ Given 05/29/2021 6:03 PM CDT 8 Units Arm, Left Given 05/29/2021 11:50 AM CDT 8 Units Arm, Right Given 05/29/2021 9:34 AM CDT 8 Units Arm, Left Given 05/28/2021 6:00 PM CDT 05/26/2021 10:27 PM CDT 12 Units Arm, Lef t insulin glargine (LANTUS SOLOSTAR U-100 Given INSULIN) injection PEN 12 Units 12 Units, Subcutaneous, AT BEDTIME DAILY, First dose (after last modification) on Mon05/26/21 at 2200, Until Discontinued, Continue if NPO. DO NOT mix with other insulins -- Do not mix with other insulins -- NOTE: This i s a HIGH ALERT Medication., Dispense pens manually with initial order and then upon request. DO NOT uncheck "Do not dispense" 05/27/2021 9:29 PM CDT 15 Units Abdomen: LLQ insulin glargine (LANTUS SOLOSTAR U-100 Given INSULIN) injection PEN 15 Units 15 Units, Subcutaneous, AT BEDTIME DAILY, First dose (after last modification) on [place] 05/27/21 at 2200, Until Discontinued, Continue if NPO. DO NOT mix with other insulins -- Do not mix with other insulins -- NOTE: This i s a HIGH ALERT Medication., Dispense pens manually with initial order and then upon request. DO NOT uncheck "Do not dispense" 05/28/2021 9:59 PM CDT 18 Units Abdomen: LLQ insulin glargine (LANTUS SOLOSTAR U-100 Given INSULIN) injection PEN 18 Units 18 Units, Subcutaneous, AT BEDTIME DAILY, First dose (after last modification) on Mon05/28/21 at 2200, Until Discontinued, Continue if NPO. DO NOT mix with other insulins -- Do not mix with other insulins -- NOTE: This i s a HIGH ALERT Medication., Dispense pens manually with initial order and then upon request. DO NOT uncheck "Do not dispense" 05/31/2021 9:12 PM CDT 20 Units Arm, Rig ht insulin glargine (LANTUS SOLOSTAR U-100 Given INSULIN) injection PEN 20 Units 20 Units, Subcutaneous, AT BEDTIME DAILY, First dose (after last modification) on Mon05/29/21 at 2200, Until Discontinued, Continue if NPO. DO NOT mix with other insulins -- Do not mix with other insulins -- NOTE: This i s a HIGH ALERT Medication., Dispense pens manually with initial order and then upon request. DO NOT uncheck "Do not dispense" 20 Units Arm, Right Given 05/30/2021 9:42 PM CDT 20 Units Arm, Right Given 05/29/2021 9:53 PM CDT 05/25/2021 9:10 PM CDT 9 Units Abdomen: LLQ insulin glargine (LANTUS SOLOSTAR U-100 Given INSULIN) injection PEN 9 Units 9 Units, Subcutaneous, AT BEDTIME DAILY , First dose on Mon05/25/21 at 2200, Unti l Discontinued, Continue if NPO. DO NOT mix with other insulins -- Do not mix with other insulins -- NOTE: This is a HIGH ALERT Medication., Dispense pens manually with initial order and then upon request. DO NOT uncheck "Do not dispense" 05/24/2021 7:13 PM CDT 100 mL/hr lactated ringers infusion Given - New 1,000 mL, Intravenous, at 100 mL/hr, Bag CONTINUOUS, Starting on Mon05/23/21 at 1900, Until Mon05/25/21 at 1745 100 mL/hr Given - New Bag 05/24/2021 9:15 AM CDT 100 mL/hr Given - New Bag 05/23/2021 7:47 PM CDT 06/01/2021 6:08 AM CDT 88 mcg levothyroxine (SYNTHROID) tablet 88 mcg Given 88 mcg, Oral, DAILY, First dose on Mon05/24/21 at 0900, Until Discontinued, Give 1 hour before a meal. If patient is receiving tube feedings, hold tube feed 1hr before and 1hr after dose. 88 mcg Given 05/31/2021 5:37 AM CDT 88 mcg Given 05/30/2021 9:29 AM CDT 88 mcg Given 05/29/2021 9:11 AM CDT 88 mcg Given 05/28/2021 8:35 AM CDT 88 mcg Given 05/27/2021 9:05 AM CDT 88 mcg Given 05/26/2021 9:15 AM CDT 88 mcg Given 05/25/2021 8:52 AM CDT 88 mcg Given 05/24/2021 9:16 AM CDT 05/29/2021 12:02 PM CDT 1 patch Leg, Upp er Left lidocaine (LIDODERM) 5 % topical patch 1 Patch/Topic a patch l Applied 1 patch, Topical, Administer over 12 Hours, DAILY, First dose on 05/29/21 at 1130, Until Discontinued, NURSING PLEASE NOTE: Apply patch ONCE DAILY to area of pain and REMOVE after designate d duration. Apply only to intact skin. Patch may be cut to fit affected area. 05/31/2021 8:05 PM CDT 3 mg melatonin (MELATIN) tablet 3 mg Given 3 mg, Oral, AT BEDTIME DAILY, First dos e on Mon05/26/21 at 2100, Until Discontinued 3 mg Given 05/30/2021 9:42 PM CDT 3 mg Given 05/29/2021 9:50 PM CDT 3 mg Given 05/26/2021 10:21 PM CDT 06/01/2021 8:30 AM CDT 500 mg methocarbamoL (ROBAXIN) tablet 500 mg Given 500 mg, Oral, THREE TIMES DAILY, First dose on 05/29/21 at 1130, Until Discontinued 500 mg Given 05/31/2021 8:05 PM CDT 500 mg Given 05/31/2021 3:31 PM CDT 500 mg Given 05/31/2021 8:38 AM CDT 500 mg Given 05/30/2021 9:41 PM CDT 500 mg Given 05/30/2021 4:19 PM CDT 500 mg Given 05/30/2021 9:34 AM CDT 500 mg Given 05/29/2021 9:50 PM CDT 500 mg Given 05/29/2021 12:02 PM CDT 05/27/2021 12:42 PM CDT 10 mL milk of magnesia (CONC) oral suspension Given 10 mL 10 mL, Oral, DAILY, First dose on [place] 05/27/21 at 1115, Until Discontinued, 10 mL CONC = 30 mL MOM 05/26/2021 9:21 AM CDT 10 mg oxyCODONE (ROXICODONE) tablet 5-10 mg Given 5-10 mg, Oral, EVERY 4 HOURS PRN, Starting on Mon05/24/21 at 0948, Until Mon05/26/21 at 0947, Pain PO 10 mg Given 05/26/2021 5:32 AM CDT 10 mg Given 05/26/2021 12:43 AM CDT 10 mg Given 05/25/2021 6:40 PM CDT 10 mg Given 05/25/2021 5:48 AM CDT 10 mg Given 05/24/2021 11:37 PM CDT 10 mg Given 05/24/2021 7:12 PM CDT 10 mg Given 05/24/2021 2:35 PM CDT 10 mg Given 05/24/2021 10:33 AM CDT 05/25/2021 3:29 PM CDT 5 mg oxyCODONE (ROXICODONE) tablet 5-10 mg Given 5-10 mg, Oral, ONCE PRN, 1 dose, Starting on Mon05/25/21 at 1323, Until Mon05/25/21 at 1529, Pain PO, For Pain Score <4, PACU (only) 06/01/2021 10:41 AM CDT 5 mg oxyCODONE (ROXICODONE) tablet 5-10 mg Given 5-10 mg, Oral, EVERY 4 HOURS PRN, Starting on Mon05/30/21 at 0811, Until Mon06/01/21 at 1307, Pain PO 5 mg Given 05/31/2021 8:05 PM CDT 5 mg Given 05/31/2021 5:37 AM CDT 5 mg Given 05/31/2021 1:19 AM CDT 05/31/2021 8:05 PM CDT [address] (PROTONIX) tablet 40 mg Given 40 mg, Oral, DAILY, First dose on Mon05/23/21 at 2145, Until Discontinued, Do not crush or chew tablet. 40 mg Given 05/30/2021 9:41 PM CDT 40 mg Given 05/29/2021 9:50 PM CDT 40 mg Given 05/28/2021 9:50 PM CDT 40 mg Given 05/27/2021 9:28 PM CDT 40 mg Given 05/26/2021 10:21 PM CDT 40 mg Given 05/25/2021 9:04 PM CDT 40 mg Given 05/24/2021 9:28 PM CDT 40 mg Given 05/23/2021 10:36 PM CDT 05/26/2021 9:15 AM CDT 17 g polyethylene glycol 3350 (MIRALAX) Given packet 17 g 17 g (1 packet), Oral, DAILY, First dos e on Mon05/24/21 at 0900, Until Discontinued, 8.5 GRAMS = 0.5 PACKET 17 GRAMS = 1 PACKET 34 GRAMS = 2 PACKETS 06/01/2021 8:29 AM CDT 17 g polyethylene glycol 3350 (MIRALAX) Given packet 17 g 17 g (1 packet), Oral, TWICE DAILY, First dose (after last modification) on Mon05/26/21 at 2100, Until Discontinued , 8.5 GRAMS = 0.5 PACKET 17 GRAMS = 1 PACKET 34 GRAMS = 2 PACKETS 17 g Given 05/31/2021 8:36 AM CDT 17 g Given 05/28/2021 8:35 AM CDT 17 g Given 05/27/2021 9:51 PM CDT 17 g Given 05/27/2021 9:06 AM CDT 17 g Given 05/26/2021 10:19 PM CDT 05/28/2021 8:45 AM CDT 2 tablets potassium phosphate (K-PHOS ORIGINAL) Given dispersable tablet 2 tablet 2 tablet, Oral, ONCE, 1 dose, On Mon05/28/21 at 0800, DO NOT SWALLOW TABLET DISSOLVE IN WATER PRIOR TO ADMINISTRATION - The tablets are administered by dissolving two tablets in 6-8 ounces of water. - For best results, soak tablets in water for two to five minutes, or more if necessary, and stir. - If any tablet particles remain undissolved, they may be crushed and stirred vigorously to speed dissolution. Each tablet delivers 114 m g Phosphorus (3.6 mMol) and 3.7 mEq Potassium. 06/01/2021 8:29 AM CDT 40 mg rosuvastatin (CRESTOR) tablet 40 mg Given 40 mg, Oral, DAILY, First dose on Mon05/24/21 at 0900, Until Discontinued 40 mg Given 05/31/2021 8:40 AM CDT 40 mg Given 05/30/2021 9:33 AM CDT 40 mg Given 05/29/2021 9:31 AM CDT 40 mg Given 05/28/2021 8:45 AM CDT 40 mg Given 05/27/2021 9:04 AM CDT 40 mg Given 05/26/2021 9:21 AM CDT 40 mg Given 05/25/2021 8:53 AM CDT 40 mg Given 05/24/2021 9:15 AM CDT 05/26/2021 9:15 AM CDT 1 tablet senna/docusate (SENOKOT-S) tablet 1 Given tablet 1 tablet, Oral, TWICE DAILY, First dose on Mon05/23/21 at 2100, Until Discontinued, Hold for loose stools 1 tablet Given 05/25/2021 9:04 PM CDT 1 tablet Given 05/25/2021 8:53 AM CDT 1 tablet Given 05/24/2021 9:15 AM CDT 06/01/2021 8:30 AM CDT 2 tablets senna/docusate (SENOKOT-S) tablet 2 Given tablet 2 tablet, Oral, TWICE DAILY, First dose (after last modification) on Mon 1 at 2100, Until Discontinued, Hold for loose stools 2 tablets Given 05/28/2021 8:35 AM CDT 2 tablets Given 05/27/2021 9:51 PM CDT 2 tablets Given 05/27/2021 9:05 AM CDT 2 tablets Given 05/26/2021 10:19 PM CDT 06/01/2021 8:30 AM CDT 100 mg sertraline (ZOLOFT) tablet 100 mg Given 100 mg, Oral, DAILY, First dose on Mon05/24/21 at 1830, Until Discontinued 100 mg Given 05/31/2021 8:38 AM CDT 100 mg Given 05/30/2021 9:46 AM CDT 100 mg Given 05/29/2021 9:24 AM CDT 100 mg Given 05/28/2021 8:35 AM CDT 100 mg Given 05/27/2021 9:05 AM CDT 100 mg Given 05/26/2021 9:15 AM CDT 100 mg Given 05/25/2021 8:53 AM CDT 100 mg Given 05/24/2021 6:12 PM CDT 05/25/2021 12:55 PM CDT sodium chloride 0.9 % infusion Given - New 1,000 mL, 1,000 mL, Intravenous, at 20 Bag mL/hr, CONTINUOUS, Starting on Mon05/25/21 at 0900, Until Mon05/27/21 at 0859, Pre-Op 1,000 mL 20 mL/hr Given - New Bag 05/25/2021 9:31 AM CDT 05/29/2021 9:23 AM CDT 25 mg spironolactone (ALDACTONE) tablet 25 mg Given 25 mg, Oral, DAILY, First dose on Mon05/28/21 at 0945, Until Discontinued, NURSING: Please educate patient and document: Avoid using salt substitutes which have a high potassium content (Nu-Salt). 25 mg Given 05/28/2021 9:44 AM CDT 05/24/2021 5:41 AM CDT 50 mg traMADoL (ULTRAM) tablet 50 mg Given 50 mg, Oral, EVERY 6 HOURS PRN, Starting on Mon05/23/21 at 2033, Until Mon05/24/21 at 0949, Pain PO 50 mg Given 05/23/2021 10:36 PM CDT documented in this encounter Discontinued Medications Start Date End Date Medication Sig Discontinue Reason 08/29/2019 05/23/2021 acetaminophen (TYLENOL) Take two 325 mg tablet tablets by mouth four times daily. 05/23/2021 metFORMIN (GLUCOPHAGE) Take 500 mg Discontinued 500 mg tablet by mouth by another twice daily clinician with meals. 05/23/2021 glimepiride (AMARYL) 4 mg Take 4 mg by Discontinued tablet mouth daily by another with clinician breakfast. 06/01/2021 levothyroxine (SYNTHROID) Take 88 mcg 88 mcg tablet by mouth daily. 06/01/2021 gabapentin (NEURONTIN) Take 100 mg 100 mg capsule by mouth. Take by mouth twice daily, 200 mg in the morning and 100 mg at bedtime total dose 300 mg 03/01/2018 06/01/2021 aspirin EC 81 mg tablet Take 1 tablet by mouth daily. Take with food. 06/01/2021 linagliptin (TRADJENTA) 5 Take 5 mg by mg tab mouth daily. 06/01/2021 meloxicam (MOBIC) 15 mg Take 15 mg tablet by mouth daily. 06/01/[address] (PRILOSEC) Take 40 mg 40 mg capsule by mouth daily before breakfast. 06/01/2021 ALPRAZolam (XANAX) 1 mg Take 1 mg by tablet mouth at bedtime as needed for Anxiety. Takes 1-2 tablets nightly 02/01/2021 06/01/2021 carvediloL (COREG) 6.25 Take one mg tablet tablet by mouth twice daily. Take with food. 06/01/2021 acetaminophen SR Take 650 mg (TYLENOL) 650 mg tablet by mouth every 8 hours as needed for Pain. 06/02/2021 06/01/2021 aspirin EC 81 mg tablet Take one tablet by mouth daily. Take with food. documented as of this encounter Historical Medications * This list may reflect changes made after this encounter. Start Date End Date Medication Sig Dispensed Refills albuterol 0.083% Inhale 2.5 mg 0 (PROVENTIL) 2.5 mg /3 mL solution by (0.083 %) nebulizer nebulizer as solution directed every 4 hours as needed for Wheezing or Shortness of Breath. Givzuarkidgxb-Ws-Mrig-Min Take 1 tablet 0 erals 18-0.4 mg tab by mouth daily. dapagliflozin-metformin Take 1 tablet 0 (XIGDUO XR) 10-1,000 mg by mouth TBph daily. 06/01/2021 acetaminophen SR Take 650 mg 0 (TYLENOL) 650 mg tablet by mouth every 8 hours as needed for Pain. added in this encounter Active and Recently Administered Medications Times are shown in CDT. 05/31/2021 06/01/2021 Medication Order 05/30/2021 0837 (Given - Provider: Ines Pickett RN)1531 (Given - Provider: Ines Pickett RN)2004 (Given - Provider: Ines Pickett RN) 0830 (Given - Provider: Emerald Leger RN) acetaminophen (TYLENOL) tablet 650 mg 0946 (Given - 650 mg, Oral, EVERY 6 HOURS WHILE Provider: Santy DE LA O, First dose on Mon05/30/21 at MATT Daniels)1511 0915, Until Discontinued, TOTAL (Given - Provider: ACETAMINOPHEN DOSE NOT TO EXCEED 4GM Ladi sanchez, DAILY RN)2141 (Given - Provider: Kaylie Henry RN) 0837 (Given - Provider: Ines Pickett RN) 0830 (Given - Provider: Emerald Leger RN) allopurinoL (ZYLOPRIM) tablet 300 mg 0931 (Given - 300 mg, Oral, DAILY, First dose on Mon Provider: Alaina christopher 05/24/21 at 0900, Until Discontinued MATT Daniels) 0838 (Given - Provider: Ines Pickett RN) 0830 (Given - Provider: Emerald Leger RN) aspirin EC tablet 81 mg 0931 (Given - 81 mg, Oral, DAILY, First dose on Mon Provider: Larisa lu 05/24/21 at 1830, Until Discontinued MATT Daniels) 0944 (Med Not Given - Provider: Emerald deras RN - Reason: Patient Refused) bisacodyL (DULCOLAX) rectal suppository 10 mg 10 mg, Rectal, ONCE, 1 dose, On Mon06/01/21 at 0945, Hold for loose stools 0838 (Med Not Given - Provider: Ines Pickett RN - Reason: Patient Refused - Comment: pt became hypotensive after working with therapy yesterday morning after morning dose of coreg)2104 (Med Not Given - Provider: Altagracia Antunez RN - Reason: Patient Refused) 0834 (Given - Provider: Emerald Leger RN) carvediloL (COREG) tablet 3.125 mg 2141 (Given - 3.125 mg, Oral, TWICE DAILY, First dose Provider: Ella jackson (after last modification) on 05/30/21 MATT Henry) at 2100, Until Discontinued, Hold for heart rate < 60 bpm or systolic BP < 90 carvediloL (COREG) tablet 6.25 mg 0933 (Given - (CANCELED) Provider: Ladi 6.25 mg, Oral, TWICE DAILY, First dose MATT Daniels) on 05/23/21 at 2145, Until Discontinued, Hold for heart rate < 60 bpm or systolic BP < 90 0837 (Given - Provider: Ines Pickett RN) 0831 (Given - Provider: Emerald Leger RN) cholecalciferol (VITAMIN D-3) tablet 0930 (Given - 5,000 Units Provider: Ladi 5,000 Units, Oral, DAILY, First dose on MATT Daniels) 05/24/21 at 1830, Until Discontinued 0838 (Given - Provider: Ines Pickett RN)2004 (Given - Provider: Ines Pickett RN) 08 (Given - Provider: Emerald Leger RN) enoxaparin (LOVENOX) syringe 30 mg 0937 (Given - 30 mg, Subcutaneous, TWICE DAILY, First Provider: Lali quintero dose on 05/23/21 at 2100, Until MATT Daniels)2140 Discontinued, For patients undergoing (Given - Provi tyrell: surgery: Consult physician in advance -- Kaylie diaz RN) enoxaparin is an anticoagulant and may need to be held for 12hr prior to surgery or invasive procedures. NOTE: This is a HIGH ALERT Medication. 0837 (Given - Provider: Ines Pickett RN) 0830 (Given - Provider: Emerald Leger RN) ezetimibe (ZETIA) tablet 10 mg 0931 (Given - 10 mg, Oral, DAILY, First dose on Mon Provider: Larisa lu 05/24/21 at 1830, Until Discontinued Gerant, RN) 2004 (Given - Provider: Ines Pickett RN) gabapentin (NEURONTIN) capsule 100 mg 2140 (Given - 100 mg, Oral, AT BEDTIME DAILY, First Provider: Blane andrews dose on Mon05/28/21 at 2100, Until MATT Henry) Discontinued 0837 (Given - Provider: Ines Pickett RN) 08 (Given - Provider: Emerald Leger RN) gabapentin (NEURONTIN) capsule 200 mg 0933 (Given - 200 mg, Oral, DAILY, First dose on Sat Provider: Alaina christopher 05/29/21 at 0900, Until Discontinued MATT Daniels) ibuprofen (MOTRIN) tablet 600 mg 932 (Given - (COMPLETED) Provider: Laid 600 mg, Oral, THREE TIMES DAILY WITH MATT Daniels)1150 MEALS, 3 doses, First dose on Sun (Given - Provider: 05/30/21 at 0915, Last dose on Sun Ladi Daniels, 05/30/21 at 1800, TOTAL IBUPROFEN DOSE RN)1800 (Given - NOT TO EXCEED 3.2GM PER DAY Provider: Ines Pickett RN) 0826 (Med Not Given - Provider: Ines Pickett RN - Reason: Order parameters not met)1256 (Given - Provider: Ines Pickett RN)1733 (Given - Provider: Ines Pickett RN)2104 (Med Not Given - Provider: Altagracia Antunez RN - Reason: Order parameters not met - Comment: BS- 137) 0801 (Med Not Given - Provider: Emerald deras RN - Reason: Order parameters not met - Comment: BS 103)1245 (Due - Provider: Emerald Leger, MATT) insulin aspart (U-100) (NOVOLOG FLEXPEN 0935 (Med No t Given U-100 INSULIN) injection PEN 0-24 Units - Provider: 0-24 Units, Subcutaneous, BEFORE MEALS Ladi naqvi RN AND 2200, First dose on 05/29/21 at - Reason: Ord er 1700, Until Discontinued, -POC glucose parameters no t 181-220mg/dL at 07, 11, 17 administer 4 met)1150 (Gi georgina - units insulin, at 22, 03* administer 0 Provider: Alaina herine units. -POC glucose 221-260mg/dL at 07, MATT Daniels)1 740 (Med administer 8 units insulin, at Not Given - * administer 4 units. -POC glucose Provider: Dar lizama 261-300mg/dL at 07, , administer 12 MATT Pickett - units insulin, at , 03* administer 8 Reason: Order units. -POC glucose 301-350mg/dL at 07, parameters n ot administer 16 units insulin, at met)2135 (Med Not , * administer 12 units. -POC Given - Provider: glucose 351-400mg/dL at 07, , 17 Kaylie Henry RN - administer 20 units insulin, at , * Reason: Orde r administer 16 units. -POC glucose parameters not met ) >400mg/dL at 07, , administer 24 units insulin, at , 03* administer 20 units. *only if ordered 5x's daily Fo r POCT glucose >350mg/dL give correction bolus and recheck POCT glucose in 2 hours. If POCT glucose at 2 hours >300mg/dL call physician for further orders. For patients who are not eatin g meals, continue to administer the appropriate correction factor. NOTE: This is a HIGH ALERT Medication., Dispense pens manually with initial order and then upon request. DO NOT uncheck "Do not dispense" 0840 (Given - Provider: Ines Pickett RN)1256 (Given - Provider: Ines Pickett RN)1732 (Given - Provider: Ines Pickett RN) 0944 (Given - Provider: Emerald Leger, MATT)1245 (Due - Provider: Emerald Leger, MATT) insulin aspart (U-100) (NOVOLOG FLEXPEN 0935 (Given - U-100 INSULIN) injection PEN 8 Units Provider: Sherine del real 8 Units, Subcutaneous, THREE TIMES DAILY MATT Daniels) 1150 WITH MEALS, First dose (after last (Given - Provider : modification) on Mon05/28/21 at 1800, Ladi Catalan nt, Until Discontinued, Hold if NPO for RN)1801 (Given - procedure, unable to eat, or if FSBS < Provider: Annette crandall 70 mg/dL Give at start of meal. NOTE: MATT Pickett) This is a HIGH ALERT Medication., Dispense pens manually with initial order and then upon request. DO NOT uncheck "Do not dispense" 2111 (Given - Provider: Debra Merino) insulin glargine (LANTUS SOLOSTAR U-100 2141 (Given - INSULIN) injection PEN 20 Units Provider: Kaylie 20 Units, Subcutaneous, AT BEDTIME MATT Henry) DAILY, First dose (after last modification) on 05/29/21 at 2200, Until Discontinued, Continue if NPO. DO NOT mix with other insulins -- Do not mix with other insulins -- NOTE: This i s a HIGH ALERT Medication., Dispense pens manually with initial order and then upon request. DO NOT uncheck "Do not dispense" 0537 (Given - Provider: Kaylie Henry RN ) 0608 (Given - Provider: Altagracia Antunez RN) levothyroxine (SYNTHROID) tablet 88 mcg 928 (Given - 88 mcg, Oral, DAILY, First dose on Mon Provider: Aalina christopher 05/24/21 at 0900, Until Discontinued, MATT Daniels) Give 1 hour before a meal. If patient is receiving tube feedings, hold tube feed 1hr before and 1hr after dose. 0839 (Med Not Given - Provider: Ines Pickett RN - Reason: Patient Refused) 0838 (Med Not Given - Provider: Emerald deras RN - Reason: Patient Refused) lidocaine (LIDODERM) 5 % topical patch 1 0600 (Patch /Topical patch Removed - Provider: 1 patch, Topical, Administer over 12 Adina Harding, DAILY, First dose on 05/29/21 RN)0946 (Med Not at 1130, Until Discontinued, NURSING Given - Provide r: PLEASE NOTE: Apply patch ONCE DAILY to Ladi naqvi RN area of pain and REMOVE after designated - Reason: P atient duration. Apply only to intact skin. Refused) Patch may be cut to fit affected area. 2004 (Given - Provider: Ines Pickett RN) melatonin (MELATIN) tablet 3 mg 2141 (Given - 3 mg, Oral, AT BEDTIME DAILY, First dose Provider: Ld agarwal on Mon05/26/21 at 2100, Until MATT Henry) Discontinued 0838 (Given - Provider: Ines Pickett RN)1531 (Given - Provider: Ines Pickett RN)2004 (Given - Provider: Ines Pickett RN) 08 (Given - Provider: Emerald Leger RN) methocarbamoL (ROBAXIN) tablet 500 mg 0934 (Given - 500 mg, Oral, THREE TIMES DAILY, First Provider: Alaina wilson on 05/29/21 at 1130, Until MATT Daniels)1619 Discontinued (Given - Provider: Ines Pickett RN)214 (Given - Provider: Kaylei Henry RN) 0839 (Med Not Given - Provider: Ines Pickett RN - Reason: Patient Refused) 0838 (Med Not Given - Provider: Emerald deras RN - Reason: Patient Refused) milk of magnesia (CONC) oral suspension 0934 (Med No t Given 10 mL - Provider: 10 mL, Oral, DAILY, First dose on Falguni Ladi jarquin RN 05/27/21 at 1115, Until Discontinued, 10 - Reason: Pa yakelin mL CONC = 30 mL MOM Refused) 2004 (Given - Provider: Ines Pickett RN) pantoprazole DR (PROTONIX) tablet 40 mg 2140 (Given - 40 mg, Oral, DAILY, First dose on Sun Provider: Blane andrews 05/23/21 at 2145, Until Discontinued, Do MATT Henry) not crush or chew tablet. 0836 (Given - Provider: Ines Pickett RN)2008 (Med Not Given - Provider: Ines Pickett RN - Reason: Patient Refused) 0829 (Given - Provider: Emerald Leger, MATT) polyethylene glycol 3350 (MIRALAX) 0934 (Med Not Giv en packet 17 g - Provider: 17 g (1 packet), Oral, TWICE DAILY, Ladi Daniels RN First dose (after last modification) on - Reason: Serene hamlin 05/26/21 at 2100, Until Discontinued, Refused)220 9 (Med 8.5 GRAMS = 0.5 PACKET 17 GRAMS = 1 Not Given - PACKET 34 GRAMS = 2 PACKETS Provider: Kaylie Henry RN - Reason: Patient Refused) 0840 (Given - Provider: Ines Pickett RN) 0829 (Given - Provider: Emerald Leger RN) rosuvastatin (CRESTOR) tablet 40 mg 0933 (Given - 40 mg, Oral, DAILY, First dose on Mon Provider: Larisa lu 05/24/21 at 0900, Until Discontinued MATT Daniels) 0837 (Med Not Given - Provider: Ines Pickett RN - Reason: Patient Refused)2008 (Med Not Given - Provider: Ines Pickett RN - Reason: Patient Refused) 0830 (Given - Provider: Emerald Leger RN) senna/docusate (SENOKOT-S) tablet 2 0934 (Med Not Gi georgina tablet - Provider: 2 tablet, Oral, TWICE DAILY, First dose Ladi olivo RN (after last modification) on Mon05/26/21 - Reason: P atient at 2100, Until Discontinued, Hold for Refused)2209 ( Med loose stools Not Given - Provider: Kaylie Henry RN - Reason: Patient Refused) 0838 (Given - Provider: Ines Pickett RN) 0830 (Given - Provider: Emerald Leger RN) sertraline (ZOLOFT) tablet 100 mg 0946 (Given - 100 mg, Oral, DAILY, First dose on Mon Provider: Alaina christopher 05/24/21 at 1830, Until Discontinued MATT Daniels) 05/31/2021 06/01/2021 Medication Order 05/30/2021 albuterol 0.083% (PROVENTIL) nebulizer solution 2.5 mg 2.5 mg, Inhalation, RT EVERY 4 HOURS PRN, Starting on Mon05/23/21 at 2155, Until Mon06/01/21 at 1307, Signs and Symptoms of Acute Airway Obstruction, When administered by RT, will be per RT policy. colchicine (COLCRYS) tablet 0.6 mg 0.6 mg, Oral, DAILY PRN, Starting on Mon05/23/21 at 2032, Until Mon06/01/21 at 1307, Pain PO HYDROcodone/acetaminophen (NORCO) 5/325 0003 (Given - mg tablet 1-2 tablet (CANCELED) Provider: Kaylie 1-2 tablet, Oral, EVERY 4 HOURS PRN, MATT Henry)045 1 Starting on Mon05/26/21 at 0947, Until (Given - Prov ider: 05/30/21 at 0811, Pain PO, TOTAL Kaylie Henry RN ) ACETAMINOPHEN DOSE NOT TO EXCEED 4GM DAILY NOTE: This is a HIGH ALERT Medication. 0106 (Given - Provider: Altagracia Antunez RN) 0125 (Canceled Entry - Provider: Debra Merino) hydrOXYzine HCL (ATARAX) tablet 25 mg 25 mg, Oral, THREE TIMES DAILY PRN, Starting on 05/29/21 at 1024, Until Mon06/01/21 at 1307, Anxiety PO, Itchin g PO ondansetron (ZOFRAN) injection 4-8 mg 4-8 mg, Intravenous, EVERY 6 HOURS PRN , Starting on 05/23/21 at 1851, Until Mon06/01/21 at 1307, Nausea/Vomiting Injectable 0119 (Given - Provider: Kaylie Henry RN )0515 (Canceled Entry - Provider: Kaylie Henry RN)0537 (Given - Provider: Kaylie Henry RN)2004 (Given - Provider: Ines Pickett RN) 1041 (Given - Provider: Emerald Leger RN) oxyCODONE (ROXICODONE) tablet 5-10 mg 1156 (Med Not Given 5-10 mg, Oral, EVERY 4 HOURS PRN, - Provider: Starting on 05/30/21 at 0811, Until Ladi naqvi RN Mon06/01/21 at 1307, Pain PO - Reason: Patient Refused) documented in this encounter Orders First Ordered Date Medications Ordered That Might Not Have Count Last Ordered Date Been Administered bisacodyL (DULCOLAX) rectal suppository 1 06/01/2021 10 mg diphenhydrAMINE (BENADRYL) injection 25 1 05/25/2021 mg fentaNYL citrate PF (SUBLIMAZE) 1 2020 injection 50 mcg labetaloL (NORMODYNE) injection 5 mg 1 0 05/25/2021 promethazine (PHENERGAN) injection 6.25 1 05/25/2021 mg sodium chloride 0.9 % irrigation bag 1 0 05/25/2021 vancomycin (VANCOCIN) injection 1 2020 ALPRAZolam (XANAX) tablet 0.5 mg 1 05/24 albuterol 0.083% (PROVENTIL) nebulizer 1 05/23/2021 solution 2.5 mg ipratropium/albuterol (COMBIVENT 1 05/23 RESPIMAT) inhaler 1 puff ondansetron (ZOFRAN) injection 4-8 mg 1 05/23/2021 First Ordered Date Lab Orders Without Results Count Last Ordere d Date 05/24/2021 PREPARE RBC'S 3 05/28/2021 First Ordered Date Procedures Count Last Ordered Date CONSULT IV THERAPY TEAM 2 05/28/2021 First Ordered Date Diet Count Last Ordered Date DISCHARGE DIET DIABETIC 1 06/01/2021 First Ordered Date Nursing Count Last Ordered Date DISCHARGE ACTIVITY WT BEARING 1 06/01/20 DISCHARGE CONTACT 1 06/01/2021 DISCHARGE SIGNS/SYMPTOMS 1 06/01/2021 First Ordered Date Consult Count Last Ordered Date CONSULT REHABILITATION MEDICINE 1 2020 PHYSICIAN CONSULT INTERNAL MEDICINE PHYSICIAN 1 CONSULT ORTHOPEDIC SURGERY PHYSICIAN 1 0 05/23/2021 First Ordered Date OT Count Last Ordered Date OT CONSULT OCCUPATIONAL THERAPY 1 2020 First Ordered Date PT Count Last Ordered Date PT CONSULT PHYSICAL THERAPY 1 05/23/2021 First Ordered Date Admission Count Last Ordered Date ADMIT TO INPATIENT (NO BED REQUEST) 1 First Ordered Date Discharge Count Last Ordered Date DISCHARGE PATIENT NOW 1 06/01/2021 First Ordered Date Equipment Count Last Ordered Date 05/24/2021 COMPRESSION DEVICE, LEG 2 05/26/2021 PUMP IV CONTROL UNIT W/MODULES 1 021 First Ordered Date Activity Count Last Ordered Date MOBILITY 1 05/25/2021 First Ordered Date Discharge Contingent Count Last Ordered Date DISCHARGE PATIENT CONTINGENT 1 First Ordered Date SPECIALITY EQUIPMENT Count Last Ordered Date COMMODE STANDARD 300LBS MAX 1 05/26/2021 FAN 1 05/25/2021 First Ordered Date Intake & Output Count Last Ordered Date INTAKE AND OUTPUT 1 05/23/[address] & Maintain Count Last Ordered Date PLACE AND MAINTAIN SCD 1 05/23/2021 First Ordered Date Case Request Count Last Ordered Date CASE REQUEST 1 05/24/2021 documented in this encounter Additional Health Concerns Assessment Noted Time A fall risk assessment has been completed for the pat ient 06/01/2021 8:30 AM CDT PHQ-2 Depression Total Score: 0 02/02/2021 1:08 PM CDT documented as of this encounter
--- OUTSIDE RECORDS SUMMARY | 2021-07-24 19:35 | XMS REPORT | Encounter Summary ---
Author Author [facility] Organization [facility] Address Unknown Phone Unavailable Care Team Providers Care Leather Stitcher Name Role Phone Theresa Kowalski RN Unavailable Unavailable Colleen Funes RN Unavailable Unavailable Demarco Byrd MD Unavailable Misty Garsia RN 2 Unavailable Tien Christianson MD Unavailable Unavailable Guillermina Davis NP PCP Steve Garcia MD Unavailable Cameron Bailey MD Unavailable Guillermina Davis NP 7 Encounter Details Care Team Description Date Type Department 05/25/2021 Travel Social History Date Tobacco Use Types [...]
--- OUTSIDE RECORDS SUMMARY | 2021-07-24 19:36 | XMS REPORT | Encounter Summary ---
Author Author [facility] Organization [facility] Address Unknown Phone Unavailable Care Team Providers Care Cupola Operator Name Role Phone Theresa Kowalski RN [...] Details Care Team Description Date Type Department Naseem Wakefield MD [address] [place], [place] [id number] Marielle Sanford CRNA [address] [place], [place] [id number] 05/25/2021 Anesthesia Operating Room: [facility] [address] [facility] [address] [place] [address] Anesthesia Record Responsible Anesthesiologist Anesthesia Start Time Anesthesi a Stop Time Procedure Name Naseem Wakfeield MD 05/25/21 1023 05/25/21 1419 OPEN TREATMENT WITH INTERNAL FIXATION OF PERIPROSTHETIC LEFT FEMUR FRACTURE (Left Leg Upper) Date Time Event Comment 951 AN Equip Check 2020 0955 1022 Out of Pre Procedure 1023 Anes Start 1024 In Room 1028 An Start Data 1033 An Induction The patient was ree valuated immediately before moderate or deep sedation use and before anesthesia induction. 1036 An Intubation 1040 Anesthesia Ready 1049 Antibiotic Given 1056 IV Placed 1101 Proc Start 1409 An Extubation 1411 an stop data 1419 Handoff to RN I completed my SBAR handoff to the receiving nurse. 1419 An Stop Meds Name Total fentaNYL PF (SUBLIMAZE) injection 100 mcg lidocaine PF 2% 100mg/5mL vial 100 mg propofol (DIPRIVAN) 200 mg/ 20 mL 150 mg injection (VIAL) rocuronium (ZEMURON) injection 80 mg ondansetron (ZOFRAN) injection 4 mg dexamethasone (DECADRON) 4 mg/mL 4 mg injection phenylephrine (RYLEE-SYNEPHRINE) 0.1 mg/mL 600 mcg injection syr sugammadex (BRIDION) 100 mg/mL iv soln 200 mg artificial tears (GENTEAL TEARS; BION 2 drop TEARS) single dose solution ceFAZolin (ANCEF) 2 g lidocaine PF 1% (10 mg/mL) injection 3 mL bupivacaine (MARCAINE) 0.25% injection 20 mL dexamethasone (DECADRON) 10 mg/mL 4 mg injection sodium chloride 0.9 % infusion 1,600 mL * Name O2 N2O Inspired N2O Sevoflurane Inspired Sevoflurane * No blood administrations on file. Removal Type Details Placement 05/25/21 1409 by Marielle Sanford CRNA ETT 03/22/16; 1045; Ventilated by mask with 03/22/16 1045 by Pantera, oral airway (2); Direct laryngoscopy, DO Toño Stylet; Single-Lumen, Cuffed; ETT Size: 8mm; Mac; Blade Size: 3; Oral; 1-Full view of the glottis; 1 insertion attempt; Auscultation, ETCO2 Detector; Taped at Gums: 21 centimeters; 05/25/21 ; 1409 05/26/21 0936 by Kathy Lima RN Indwelling 05/23/21; 1908; Present on Admission; 05/23/21 1908 by Kori, Urinary 05/26/21; 0936 MATT Vera Catheter 05/28/21 1646 by Laquita Johnson RN Peripheral 05/23/21; 1908; PreHospital Outside 1908 by Kori, [place] Facility; L; Antecubital; 20 G; Jason anton RN Symptomatic (phlebitis, pain, leaking, infiltration); 05/28/21; 1646 05/25/21 1409 by Layton, Marielle A, DRILLING SUPERINTENDENT ETT 05/25/21; 1036; Ventilated by mask (1); 05/25/21 1036 by Direct laryngoscopy; Single-Lumen; ETT Juvenal, Mary Beth i A, DRILLING SUPERINTENDENT Size: 7mm; Mac; Blade Size: 3; Cricoid Pressure: No; Oral; 1 insertion attempt ; Auscultation, ETCO2 Detector; Taped at Gums: 20 centimeters; 05/25/21; 1409 05/31/21 2104 by Altagracia Antunez RN Peripheral 05/25/21; 1056; Provider; L; Hand; 20 G ; 05/25/21 1056 by IV 1; Symptomatic (phlebitis, pain, Presc winsome, Marielle A, DRILLING SUPERINTENDENT leaking, infiltration); 05/31/21; 2104 06/01/21 1300 by Rashi, Process Pumper Wounds 05/25/21; 1101; Surgical incision; Left , 05/25/21 1101 by Fidelina Upper; Thigh; 06/01/21; 1300 MATT Matthews 05/28/21 0836 by Emerald Leger RN Hemovac 05/25/21; 1318; Left, Upper; Leg; 10 FR ; 05/25/21 1318 by Fidelina, Drain 05/28/21; 0836; Per Provider MATT Matthews documented in this encounter Social History Date Tobacco Use Types Packs/Day [...] impairment: No documented as of this encounter OR Notes * Anesthesia Procedure Notes - Lenin Campbell DO - 05/25/2021 5:30 PM CDT Associated Order(s): PERIPHERAL NERVE BLOCK Anesthesia Procedure: Peripheral Nerve Block PERIPHERAL NERVE BLOCK Date/Time: 05/25/2021 4:30 PM Patient location: post-op Reason for block: at surgeon's request and post-op pain management Preprocedure checklist performed: 2 patient identifiers, risks & benefits discussed, patient evaluated, timeout performed, consent obtained, patient being monitored and sterile drape Sterile technique: - Proper hand washing - Cap, mask - Sterile gloves - Skin prep for antisepsis Peripheral Nerve Block Procedure Patient position: supine Prep: ChloraPrep Monitoring: BP, EKG and continuous pulse ox Block type: fascia iliaca Laterality: left Injection technique: single-shot Procedures: ultrasound guided Ultrasound image captured Needle/cathether: Needle type: Stimuplex Needle gauge: 22 G; Needle length: 4 in Needle location: anatomical landmarks and ultrasound guidance Procedure Medications Local Anesthesia: lidocaine PF 1% (10 mg/mL) injection, 3 mL Bolus Dose: bupivacaine (MARCAINE) 0.25% injection, 20 mL Adjuvant Medications: dexamethasone (DECADRON) 10 mg/mL injection, 4 mg Procedure Outcome Injection assessment: no paresthesia on injection, incremental injection and loc al visualized surrounding nerve on ultrasound Observations: adequate block, patient sedated but conversant throughout block, p atient tolerated the procedure well with no immediate complications and comforta ble throughout block Additional notes: Initial aspiration positive for heme, redirected with negative aspiration Refer to nursing documentation for vitals and monitoring data during procedure. Performed by: Lenin Campbell DO Authorized by: David Olivarez MD Associated attestation - David Olivarez MD - 05/26/2021 7:04 AM CDT ATTESTATION I was present during the entire procedure performed by a resident Staff name: David Olivarez MD Date: 05/26/2021 * Anesthesia Postprocedure Evaluation - Carrie Beavers DO - 05/25/2021 5:00 PM CDT Post-Anesthesia Evaluation Name: Tanja Deal : 1950 Age: 71 y.o. Sex: female Procedure Information Anesthesia Start Date/Time: 05/25/21 1023 Procedure: OPEN TREATMENT WITH INTERNAL FIXATION OF PERIPROSTHETIC LEFT FEMUR F RACTURE (Left Leg Upper) Location: MAIN OR 36 / Main OR/Periop Surgeons: Raman Wu MD Post-Anesthesia Vitals BP: 102/54 (05/25 1645) Pulse: 73 (05/25 1645) Respirations: 14 PER MINUTE (05/25 1645) SpO2: 95 % (05/25 1645) SpO2 Pulse: 72 (05/25 1645) Vitals Value Taken Time BP 102/54 05/25/21 1645 Temp Pulse 73 05/25/21 1645 Respirations 14 PER MINUTE 05/25/21 1645 SpO2 95 % 05/25/21 1645 Post Anesthesia Evaluation Note Evaluation location: Pre/Post Patient participation: recovered; patient participated in evaluation Level of consciousness: alert Pain score: 2 Pain management: adequate Hydration: normovolemia Temperature: 36.0C - 38.4C Airway patency: adequate Regional/Neuraxial: Neurological status: sensory deficit (post op peripheral nerve block improve d pain score from a 9 to a 2) Single injection shot performed Perioperative Events Post-op nausea and vomiting: nausea; resolved Postoperative Status Cardiovascular status: hemodynamically stable Respiratory status: spontaneous ventilation and supplemental oxygen (2L NC) Follow-up needed: none Additional comments: Hyperglycemia of 238 treated with sliding scale insulin of 4u Perioperative Events Perioperative Event: No Emergency Case Activation: No Associated attestation - David Olivarez MD - 05/26/2021 7:04 AM CDT ATTESTATION Post-Anesthesia Evaluation Attestation: I reviewed and agree the indicated post- anesthesia care was provided. I have reviewed hunt portions of the indicated post anesthesia care. I have examined the patient's vitals, physical status, and com plications and agree with what is documented. Staff name: David Olivarez MD Date: 05/26/2021 * Anesthesia Preprocedure Evaluation - Marielle Sanford CRNA - 05/24/2021 3:07 PM CDT Images from the original note were not included. Anesthesia Pre-Procedure Evaluation Name: Tanja Deal : 1950 Age: 71 y.o. Sex: female Procedure Date: 05/25/2021 Procedure: Procedure(s): OPEN TREATMENT WITH INTERNAL FIXATION OF PERIPROSTHETIC LEFT FEMUR FRACTURE Physical Assessment Vital Signs (last filed in past 24 hours): BP: 105/85 (05/25 931) Temp: 37.6 C (99.7 F) (05/25 931) Pulse: 80 (05/25 0500) Respirations: 16 PER MINUTE (05/25 0500) SpO2: 94 % (05/25 0505) Patient History Allergies Allergen Reactions Prednisone NAUSEA ONLY Lisinopril COUGH Naproxen NAUSEA ONLY Current Medications Medication Directions allopurinol (ZYLOPRIM) 300 mg tablet Take 300 mg by mouth daily. ALPRAZolam (XANAX) 1 mg tablet Take 1 mg by mouth at bedtime as needed for Anxie ty. Takes 1-2 tablets nightly aspirin EC 81 mg tablet Take 1 tablet by mouth daily. Take with food. carvediloL (COREG) 6.25 mg tablet Take one tablet by mouth twice daily. Take wit h food. cholecalciferol (VITAMIN D-3) 5000 unit tablet Take 5,000 Units by mouth daily. colchicine 0.6 mg tablet Take 0.6 mg by mouth daily as needed. Gout dapagliflozin/metformin HCl (XIGDUO XR PO) Take by mouth. ezetimibe (ZETIA) 10 mg tablet Take one tablet by mouth daily. gabapentin (NEURONTIN) 100 mg capsule Take by mouth twice daily. 200 mg in the morning and 100 mg at bedtime ipratropium/albuterol (COMBIVENT) 103/18 mcg/Actuation inhaler Inhale 2 puffs by mouth into the lungs four times [...] Take 40 mg by mouth daily before breakfas t. oxymetazoline (AFRIN) 0.05 % nasal spray Apply 2 sprays to each nostril as direc jenifer twice daily as needed. rosuvastatin (CRESTOR) 40 mg tablet TAKE 1 TABLET EVERY DAY sertraline (ZOLOFT) 100 mg tablet Take 1 tablet by mouth daily. spironolactone (ALDACTONE) 25 mg tablet TAKE 1 TABLET EVERY DAY WITH FOOD vitamins, multiple tablet Take 1 tablet by mouth daily. Medical History: Diagnosis Date Anxiety 03/17/2016 Arrhythmia Patient denies Arthritis Back pain Cardiac arrhythmia Chest pain Coronary artery disease Essential hypertension 03/16/2016 Fibromyalgia No current treatment required Gout Heart attack (HCC) 03/14/2016 History of non-ST elevation myocardial infarction (NSTEMI) 03/14/2016 Hyperlipidemia 03/16/2016 Hypothyroid 03/16/2016 Kidney insufficiency 07/09/19 BUN/Cr: 26/1.23 - Monitored by PCP Morbid obesity with BMI of 40.0-44.9, adult ([facility]) 03/17/2016 Neuropathy Patient denies Numbness and tingling in left hand Due to CVA Osteoarthritis Stroke ([facility]) 03/22/2016 RUE weakness Thyroid disease Type II diabetes mellitus ([facility]) 03/16/2016 Managed with metformin & glimepiride Surgical History: Procedure Laterality Date HX HEART CATHETERIZATION 03/2016 Lt Heart Cath With Ventriculogram Left 03/17/2016 Performed by Lenin Coreas MD at [facility] MED[facility]ILLING INSTRUCTOR Coronary Angiography N/A 03/17/2016 Performed by Lenin Coreas MD at [facility] MEDICAL BILLING INSTRUCTOR BYPASS GRAFT CORONARY ARTERY, SIOBHAN, EVH N/A 03/22/2016 Performed by Demarco Byrd MD at [facility] CVOR HIP SURGERY Left 09/09/2016 L hip/ Pelvis - fracture repair ARTHROPLASTY TOTAL KNEE Left 08/28/2019 Performed by Uday Sánchez MD at [facility] OR MANIPULATION KNEE JOINT UNDER GENERAL ANESTHESIA Left 12/18/2019 Performed by Uday Sánchez MD at [facility] OR CARDIAC SURGERY CHOLECYSTECTOMY [place] postoperative KNEE REPLACEMENT KNEE SURGERY Social History Socioeconomic History Marital status: Spouse name: Not on file Number of children: 3 Years of education: 10 Highest education level: 10th grade Occupational History 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 Tobacco Use Smoking status: Never Smoker Smokeless tobacco: Never Used Vaping Use Vaping Use: Never used Substance and Sexual Activity Alcohol use: Not Currently Alcohol/week: 0.0 standard drinks Drug use: Never Sexual activity: Not on file Other Topics Concern Not on file Social History Narrative Not on file Review of Systems/Medical History Patient summary reviewed Nursing notes reviewed Pertinent labs reviewed PONV Screening: Female gender, Non-smoker and Postoperative opioids No history of anesthetic complications No family history of anesthetic complications Airway - negative 03/22/16; 1045; Ventilated by mask with oral airway (2); Direct laryngoscopy , Stylet; Single-Lumen, Cuffed; ETT Size: 8mm; Mac; Blade Size: 3; Oral; 1-Full view of the glottis; 1 insertion attempt; Auscultation, ETCO2 Detector; Taped at Gums: 21 centimeters Pulmonary Asthma ( ) No pulmonary embolus O2 sats 79% on room air. Now 98% on 3 L BNC Dry cough Cardiovascular Recent diagnostic studies: ECG and echocardiogram Exercise tolerance: <4 METS Hypertension, No valvular problems/murmurs Past [place] (2016 postop constance), > 6 months Coronary artery disease Coronary artery bypass graft (x3 2016) No PTCA No palpitations Dysrhythmias (post CABG: afib) No angina No DVT Hyperlipidemia (statin) ECHO 01/2021: Left Ventricle: The left ventricular size is normal. Mild c oncentric hypertrophy. The left ventricular systolic function is low normal. EF 50-55%. Abnormal septal motion consistent with post-operative state. Grade I (mi ld) left ventricular diastolic dysfunction. Right Ventricle: The right ventricular size is normal. The right ventricular systolic function is moderately reduced. Aortic Valve: The valve is sclerotic. Mitral annular calcification. The ascending aorta is mildly dilated. 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 Abdominal Findings: Obese (BMI 36) Neurological Findings: Negative Alert and oriented x 3 Normal mental status Constitutional findings: Negative Diagnostic Tests Hematology: Lab Results Component Value Date HGB 10.9 05/25/2021 HCT 32.6 05/25/2021 PLTCT 104 05/25/2021 WBC 20.4 05/25/2021 NEUT 33 02/02/2021 ANC 5.29 02/02/2021 ALC 9.99 02/02/2021 DANII 3 02/02/2021 AMC 0.42 02/02/2021 EOSA 1 02/02/2021 ABC 0.07 02/02/2021 MCV 96.7 05/25/2021 MCH 32.3 05/25/2021 MCHC 33.4 05/25/2021 MPV 9.5 05/25/2021 RDW 17.6 05/25/2021 General Chemistry: Lab Results Component Value Date NA 139 05/25/2021 K 4.7 05/25/2021 CL 103 05/25/2021 CO2 28 05/25/2021 GAP 8 05/25/2021 BUN 22 05/25/2021 CR 1.38 05/25/2021 GLU 188 05/25/2021 CA 8.6 05/25/2021 ALBUMIN 3.5 05/25/2021 MG 1.8 05/25/2021 TOTBILI 0.7 05/25/2021 PO4 3.8 05/25/2021 Coagulation: Lab Results Component Value Date PTT 27.8 12/05/2019 INR 1.0 12/05/2019 Anesthesia Plan ASA score: 3 Plan: general and regional Induction method: intravenous NPO status: acceptable Informed Consent Anesthetic plan and risks discussed with patient. Use of blood products discussed with patient Blood Consent: consented Plan discussed with: anesthesiologist, surgeon/proceduralist and DRILLING SUPERINTENDENT. documented in this encounter Plan of Treatment [...] Procedure Name Priority Date/Time Associated Diag nosis ANESTHESIA PERIPHERAL Routine 05/25/2021 NERVE BLOCK 4:30 PM CDT documented in this encounter Results * PERIPHERAL NERVE BLOCK (05/25/2021 4:30 PM [...] Campbell DO Authorized by: David Olivarez MD documented in this encounter Visit Diagnoses Not on filedocumented in this encounter Administered Medications Action Date Dose Rate Site Medication Order MAR Action 05/25/2021 10:36 AM CDT 2 drops artificial tears single dose ophthalmic Given solution Both Eyes, INTRA-PROCEDURE MED, Startin g on Mon05/25/21 at 1036, Until Mon05/25/21 at 1419, Anesthesia Intra-op 05/25/2021 4:30 PM CDT 20 mL bupivacaine HCl (MARCAINE) 0.25 % Given injection Block, Starting on Mon05/25/21 at 1630, Until Mon05/25/21 at 1732, Anesthesia Intra-op 05/25/2021 10:49 AM CDT 2 g ceFAZolin (ANCEF) injection Given Intravenous, INTRA-PROCEDURE MED, Starting on Mon05/25/21 at 1049, Until Mon05/25/21 at 1419, Anesthesia Intra-o p 05/25/2021 11:07 AM CDT 4 mg dexamethasone (DECADRON) injection Given Intravenous, INTRA-PROCEDURE MED, Starting on Mon05/25/21 at 1107, Until Mon05/25/21 at 1419, Anesthesia Intra-o p 05/25/2021 4:30 PM CDT 4 mg dexamethasone (DECADRON) injection Given SEE ADMIN INSTRUCTIONS, Starting on Mon05/25/21 at 1630, Until Mon05/25/21 at 1732, Anesthesia Intra-op 05/25/2021 11:26 AM CDT 50 mcg fentaNYL citrate PF (SUBLIMAZE) Given injection Intravenous, INTRA-PROCEDURE MED, Starting on Mon05/25/21 at 1033, Until Mon05/25/21 at 1419, Anesthesia Intra-o p 50 mcg Given 05/25/2021 10:33 AM CDT 05/25/2021 4:30 PM CDT 3 mL lidocaine PF 1% (10 mg/mL) injection Given Subcutaneous, Starting on Mon05/25/21 a t 1630, Until Mon05/25/21 at 1732, Anesthesia Intra-op 05/25/2021 10:33 AM CDT 100 mg lidocaine PF 20 mg/mL (2 %) injection Given Intravenous, INTRA-PROCEDURE MED, Starting on Mon05/25/21 at 1033, Until Mon05/25/21 at 1419, Anesthesia Intra-o p 05/25/2021 1:51 PM CDT 4 mg ondansetron (ZOFRAN) injection Given Intravenous, INTRA-PROCEDURE MED, Starting on Mon05/25/21 at 1351, Until Mon05/25/21 at 1419, Anesthesia Intra-o p 05/25/2021 1:33 PM CDT 100 mcg phenylephrine (RYLEE-SYNEPHRINE) injection Given syringe Intravenous, INTRA-PROCEDURE MED, Starting on Mon05/25/21 at 1037, Until Mon05/25/21 at 1419, Anesthesia Intra-o p 100 mcg Given 05/25/2021 12:35 PM CDT 100 mcg Given 05/25/2021 12:14 PM CDT 100 mcg Given 05/25/2021 11:39 AM CDT 100 mcg Given 05/25/2021 11:36 AM CDT 100 mcg Given 05/25/2021 10:37 AM CDT 05/25/2021 10:33 AM CDT 150 mg propofol (DIPRIVAN) injection Given Intravenous, INTRA-PROCEDURE MED, Starting on Mon05/25/21 at 1033, Until Mon05/25/21 at 1419, Anesthesia Intra-o p 05/25/2021 1:07 PM CDT 10 mg rocuronium injection Given Intravenous, INTRA-PROCEDURE MED, Starting on Mon05/25/21 at 1033, Until Mon05/25/21 at 1419, Anesthesia Intra-o p 10 mg Given 05/25/2021 12:41 PM CDT 10 mg Given 05/25/2021 11:41 AM CDT 50 mg Given 05/25/2021 10:33 AM CDT 05/25/2021 12:55 PM CDT sodium chloride 0.9 % infusion Given - New 1,000 mL, 1,000 mL, Intravenous, at 20 Bag mL/hr, CONTINUOUS, Starting on Mon05/25/21 at 0900, Until Falguni 05/27/21 at 0859, Pre-Op 1,000 mL 20 mL/hr Given - New Bag 05/25/2021 9:31 AM CDT 05/25/2021 1:56 PM CDT 200 mg sugammadex (BRIDION) injection Given Intravenous, INTRA-PROCEDURE MED, Starting on Mon05/25/21 at 1356, Until Mon05/25/21 at 1419, Anesthesia Intra-o p documented in this encounter Additional Health Concerns Assessment Noted Time A fall risk assessment has been completed for the pat ient 05/25/2021 9:13 PM CDT PHQ-2 Depression Total Score: 0 02/02/2021 1:08 PM CDT documented as of this encounter
--- OUTSIDE RECORDS SUMMARY | 2021-07-24 19:36 | XMS REPORT | Encounter Summary ---
Author Author [facility] Organization [facility] Address Unknown Phone Unavailable Care Team Providers Care Skip Loader Name Role Phone Theresa Kowalski RN [...] Date Type Department Raman Wu MD [address] [place] [address] OPEN TREATMENT WITH INTERNAL FIXATION OF PERIPROSTHETIC LEFT FEMUR FRACTURE 05/25/2021 Surgery Operating Room: [facility], [address] [place] [address] Surgery Details Trauma Case? Date/Time Status Location OR Service Patient Class Case Class Case Type 05/25/21 Posted [facility] OR OR 36 Orthopedic Inpatient Electi ve - 11:05 AM s Treating conditions that are not life or limb threatenin g Panel 1 Procedure LRB Anes Op Region Wound Class Com ments OPEN TREATMENT WITH Left General Leg Upper Clean INTERNAL FIXATION OF PERIPROSTHETIC LEFT FEMUR FRACTURE Panel Surgeon Surgeon Role Service 1 Raman Wu MD Primary Orthopedics 1 Lenin Carbone MD Resident - Assisting Orthopedics Social History Date Tobacco Use Types Packs/Day [...] Signs Reading Time Taken Comments Vital Sign 105/85 05/25/2021 9:31 AM CDT Blood Pressure 80 05/25/2021 5:00 AM CDT Pulse 37.6 C (99.7 F) 05/25/2021 9:31 AM CDT Temperature - - Respiratory Rate 94% 05/25/2021 5:05 AM CDT Oxygen Saturation - - Inhaled [...] AM CDT Physician Discharge Summary Name: Tanja Dela Date Of : 1950 Age: 71 years [...] Morbid obesity with BMI of 40.0-44.9, adult ([facility]) 03/17/2016 Neuropathy Patient denies Numbness and tingling in left hand Due to CVA Osteoarthritis Stroke ([facility]) 03/22/2016 RUE weakness Thyroid disease Type II diabetes mellitus ([facility]) 03/16/2016 Managed with metformin & glimepiride Allergies: [...] re viewed the plan for discharge to [facility] and to follow up as an 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 09/15/2020 Degenerative arthritis of left knee 08/28/2019 Elevated Lp(a) 07/09/2019 Ischemic cardiomyopathy 03/01/2018 S/P CABG (coronary artery bypass graft) 07/24/2017 CAD (coronary artery disease) 07/27/2016 ABLA (acute blood loss anemia) 03/26/2016 CVA (cerebral vascular accident) ([facility]) 03/26/2016 Class 2 severe obesity due to excess calories with serious comorbidity and b ashli mass index (BMI) of 37.0 to 37.9 in adult ([facility]) 03/17/2016 Anxiety 03/17/2016 CKD (chronic kidney disease) stage 3, GFR 30-59 ml/min ([facility]) 03/17/2016 Dyslipidemia associated with type 2 diabetes mellitus ([facility]) 03/17/2016 Type II diabetes mellitus ([facility]) 03/16/2016 Essential hypertension 03/16/2016 Hypothyroid 03/16/2016 Hyperlipidemia 03/16/2016 Condition at Discharge: Stable Discharge Diagnoses: Hospital Problems Active Problems * (Principal) Trauma Type II diabetes mellitus (HCC) Essential hypertension [...] PHYSICIAN CONSULT REHABILITATION MEDICINE PHYSICIAN Patient Disposition: [facility] Inpatient Rehabilitation Patient instructions/medications: Diabetic Diet You should eat between 1600 and 2000 calories per day. This is equal to 60g (g michelle) of carbohydrates per meal, and 30g of carbohydrates for a bedtime snack. If you have questions about your diet after you go home, you can call a dietitia n at [phone]. Report These Signs and Symptoms Please contact [...] or concerns regarding your hospital stay, call [phone]. Discharging attending physician: PATIENCE FORD [[id number]] Restrictions for Left Leg Toe touch: You [...] mouth twice daily. PRESCRIPTION TYPE: Historical Med Awowxicawvkav-Ft-Uksk-Minerals 18-0.4 mg tab Take 1 tablet by [...] infection, please contact Dr. Wu's office @ [phone]. -Toe touch weightbearing left lower extremity. -Do not get incisions wet. Keep dressings dry. Sponge bathe until follow up appo intment. -Follow up with Dr. Wu 2-3 weeks post operative by calling [phone] to darnell escobar. Should you have a question or concern regarding your orthopedic care or injuries please call our nurse's line at [phone]. Our clinic is located on the 2nd floor of the Medical Pavilion on [facility], across from the [facility]. The clinic address is [address] [place] [address] documented in this encounter Medications at Time [...] every 8 hours as needed for Spasms. Crjbwseymibpf-Xh-Zznx-Min Take 1 tablet 0 erals 18-0.4 mg [...] Departure Means Destination Disposition Ambulance Rehab Facility ([facility]) documented in this encounter Progress Notes * Emerald Leger RN - 06/01/2021 12:59 PM CDT Tanja Deal (Dee) discharged on 06/01/2021. . Discharge instructions reviewed [...] Hospital Day: Hospital Day: 10 HPI: Tanja Deal is a 71 y.o. 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 09/15/2020 Degenerative arthritis of left knee 08/28/2019 Elevated Lp(a) 07/09/2019 Ischemic cardiomyopathy 03/01/2018 S/P CABG (coronary artery bypass graft) 07/24/2017 CAD (coronary artery disease) 07/27/2016 ABLA (acute blood loss anemia) 03/26/2016 CVA (cerebral vascular accident) ([facility]) 03/26/2016 Class 2 severe obesity due to excess calories with serious comorbidity and b ashli mass index (BMI) of 37.0 to 37.9 in adult ([facility]) 03/17/2016 Anxiety 03/17/2016 CKD (chronic kidney disease) stage 3, GFR 30-59 ml/min ([facility]) 03/17/2016 Dyslipidemia associated with type 2 diabetes mellitus ([facility]) 03/17/2016 Type II diabetes mellitus ([facility]) 03/16/2016 Essential hypertension 03/16/2016 Hypothyroid 03/16/2016 Hyperlipidemia 03/16/2016 Neuro Acute pain due to trauma --Gabapentin 100mg qhs and 200mg daily -- Lidocaine patch -- Robaxin 500mg TID -- Tylenol 650mg q6hrs -- Ibuprofen 600mg TID w/ meals -- Oxycodone 5-10mg q4hrs PRN Sleep disturbance/Anxiety/Depression -- melatonin 3mg QHS -- Holding DIE STORAGE CLERK Xanax- due to use of narcotic pain medications -- DIE STORAGE CLERK Zoloft -- Atarax 25mg TID PRN CV HTN/HLD -- Continue DIE STORAGE CLERK Rosuvastatin, ASA, Zetia, -- DIE STORAGE CLERK Coreg- decreased to 3.125 -- Holding DIE STORAGE CLERK Aldactone- due to hypotension -- HR: 60's -- Continue to monitor Pulm COPD -- Albuterol Nebs PRN -- Stable on RA. -- Pulmonary toilet, encourage IS GI/FEN Diabetic diet SLIV Zofran prn nausea Monitor and replace lytes prn GERD -- DIE STORAGE CLERK Protonix Risk for Constipation -- Bowel regimen [...] signs of illness Endo DMII -- Holding DIE STORAGE CLERK meds (tradjenta and xigduo) - non formulary -- Aspart 8 units TID w/ meals -- HDCF, POC glucose -- Lantus 20 unit HS -- AM glucose: 105 -- Diabetic diet -- A1C 8.1 on 05/24 Hypothyroid -- DIE STORAGE CLERK Levothyroxine -- TSH 0.89 MS Impaired Mobility -- PT/OT -- Rehab consulted- Acute inpt rehab Gout --DIE STORAGE CLERK Allopurinol and colchicine Left Periprosthetic Hip fracture [...] lab results, imaging Don Austin PA-C Pager: [phone] Team pager: [phone] * Garcíasarkiskeira Tamara, PT - 05/31/2021 3:03 PM CDT PHYSICAL [...] Inpatient setting;Recommend rehab medicine consult Therapist: Tamara Ulloa PT Date: 05/31/2021 * Glenis Candelaria OTA [...] Tub: Walk-in Shower Prior Function Level Of Lajas: Independent with ADLs and functional transfers Lives [...] fracture (HCC) Thrombocytopenia (HCC) Gait abnormality Impaired mobility/ADL Impaired transfers Tanja Deal is a 71 y.o. year old female admitted to [facility] on 05/23/2021 with the following issues: Left [...] lat e effects of weakness, presenting to [facility] on 05/23 follo wing a fall during [...] commode and MOD assist to complete manny-care. DEPARTMENT CLINICIAN COGNITIVE EVALUATION SUMMARY PRAGMATICS: BEHAVIOR: AUDITORY COMPREHENSION: [...] 11:21 AM CDT Reason for Visit: Rounding Allison/Muslim: Latter Day Interventions/Plan: Pt is moving over to rehab and discussed that with cigar making machine supervisor. Pt asked for prayer, cigar making machine supervisor prayed for the patient for healing and stamina and that rehab would be beneficial and helpful for her. The spiritual care team is available as needed, 01/05, through the [facility] oa ([phone]). For a response within 24 hours, please submit an order in O2 fo r a cigar making machine supervisor consult. * Mary Saha MD - 05/31/2021 [...] based on admit hemoglobin A1c 8.1% - DIE STORAGE CLERK regimen: dapagliflozin-metformin 10-1000mg daily, linagliptin 5mg daily [...] status post CABG 2015 Diastolic cardiomyopathy - DIE STORAGE CLERK: asa,carvedilol 6.25 mgbid,rosuvastatin 40 mg, Aldactone 25mg,and zetia - Coreg reduced to 3.125 on 05/30 due to hypotension CKD stage IIIserum creatinine is at baseline, avoid NSAIDs or studies with con trast Asthma no bronchospasms, continue DIE STORAGE CLERK Combivent hypothyroidism, continue levothy roxine 88 mcg daily Obesity class II with a BMI 37.6,patient reported she is already working on we ight loss by restricting calories Gout,continue colchicine Mood disorder, depression,continue Zoloft milligrams daily. Hold DIE STORAGE CLERK xanax due to risk of falls and [...] control in this patient. Mary Saha MD [facility] Internal medicine consult pager # [phone] Subjective Tanja Deal is a 71 y.o. female. She reports feeling well today. She has plans to work with therapy today and is looking forward to being more mobile. Sh ld is urinating and having BMs without issue. [...] Intake/Output Summary (Last 24 hours) at 05/31/2021 0817 Last data filed at 05/30/2021 1947 Gross [...] pertinent radiology. Mary Saha MD * Lizeth Sanchez APRN-BOILING TUB OPERATOR - 05/31/2021 6:41 AM CDT Trauma Progress [...] loss anemia) 03/26/2016 CVA (cerebral vascular accident) ([facility]) 03/26/2016 Class 2 severe obesity due to excess calories with serious comorbidity and b ashli mass index (BMI) of 37.0 to 37.9 in adult ([facility]) 03/17/2016 Anxiety 03/17/2016 CKD (chronic kidney disease) stage 3, GFR 30-59 ml/min ([facility]) 03/17/2016 Dyslipidemia associated with type 2 diabetes mellitus ([facility]) 03/17/2016 Type II diabetes mellitus ([facility]) 03/16/2016 Essential hypertension 03/16/2016 Hypothyroid 03/16/2016 Hyperlipidemia 03/16/2016 Neuro Acute pain due to trauma --Gabapentin 100mg qhs and 200mg daily -- Lidocaine patch -- Robaxin 500mg TID -- Tylenol 650mg q6hrs -- Ibuprofen 600mg TID w/ meals -- Oxycodone 5-10mg q4hrs PRN Sleep disturbance/Anxiety/Depression -- melatonin 3mg QHS -- Holding DIE STORAGE CLERK Xanax- due to use of narcotic pain medications -- DIE STORAGE CLERK Zoloft -- Atarax 25mg TID PRN CV HTN/HLD -- Continue DIE STORAGE CLERK Rosuvastatin, ASA, Zetia, -- DIE STORAGE CLERK Coreg- decreased to 3.125 due to hypotension -- Holding DIE STORAGE CLERK Aldactone- due to hypotension -- HR: 60's SBP: 90's-100's -- Continue to monitor Pulm COPD -- Albuterol Nebs PRN -- Stable on RA. -- Pulmonary toilet, encourage IS GI/FEN Diabetic diet SLIV Zofran prn nausea Monitor and replace lytes prn GERD -- DIE STORAGE CLERK Protonix Risk for Constipation -- Bowel regimen [...] signs of illness Endo DMII -- Holding DIE STORAGE CLERK meds (tradjenta and xigduo) - non formulary -- Aspart 8 units TID w/ meals -- HDCF, POC glucose -- Lantus 20 unit HS -- AM glucose: 105 -- Diabetic diet -- A1C 8.1 on 05/24 Hypothyroid -- DIE STORAGE CLERK Levothyroxine -- TSH 0.89 MS Impaired Mobility -- PT/OT -- Rehab consulted- Acute inpt rehab Gout --DIE STORAGE CLERK Allopurinol and colchicine Left Periprosthetic Hip fracture [...] Intake/Output Summary (Last 24 hours) at 05/31/2021 0641 Last data filed at 05/30/2021 1947 Gross [...] last encounter, lab results, imaging Lizeth Sanchez, POST PARTUM NURSE-BOILING TUB OPERATOR Pager: [phone] Team pager: [phone] * Josue Burden, DIE STORAGE CLERK - 05/30/2021 2:55 PM CDT PHYSICAL THERAPY PROGRESS NOTE Name: Tanja Wang "Janeen [...] Burden PTA Date: 05/30/2021 * Lizeth Sanchez APRN-KAILEY - 05/30/2021 6:37 AM CDT Trauma Progress [...] loss anemia) 03/26/2016 CVA (cerebral vascular accident) ([facility]) 03/26/2016 Class 2 severe obesity due to excess calories with serious comorbidity and b ashli mass index (BMI) of 37.0 to 37.9 in adult ([facility]) 03/17/2016 Anxiety 03/17/2016 CKD (chronic kidney disease) stage 3, GFR 30-59 ml/min ([facility]) 03/17/2016 Dyslipidemia associated with type 2 diabetes mellitus ([facility]) 03/17/2016 Type II diabetes mellitus ([facility]) 03/16/2016 Essential hypertension 03/16/2016 Hypothyroid 03/16/2016 Hyperlipidemia 03/16/2016 Neuro Acute pain due to trauma --[place] 1-2 tabs Q4H PRN- D/C --Gabapentin 100mg qhs and 200mg daily -- Lidocaine patch -- Robaxin 500mg TID -- Tylenol 650mg q6hrs -- Ibuprofen 600mg TID w/ meals -- Oxycodone 5-10mg q4hrs PRN Sleep disturbance/Anxiety/Depression -- melatonin 3mg QHS -- Holding DIE STORAGE CLERK Xanax- due to use of narcotic pain medications -- DIE STORAGE CLERK Zoloft -- Atarax 25mg TID PRN CV HTN/HLD -- Continue DIE STORAGE CLERK Rosuvastatin, ASA, Zetia, -- DIE STORAGE CLERK Coreg- decreased to 3.125 due to hypotension -- Holding DIE STORAGE CLERK Aldactone- due to hypotension -- HR: 70's SBP: 90's-100's -- Continue to monitor Pulm COPD -- Albuterol Nebs PRN -- Stable on RA. -- Pulmonary toilet, encourage IS GI/FEN Diabetic diet SLIV Zofran prn nausea Monitor and replace lytes prn GERD -- DIE STORAGE CLERK Protonix Risk for Constipation -- Bowel regimen [...] signs of illness Endo DMII -- Holding DIE STORAGE CLERK meds (tradjenta and xigduo) - non formulary -- Aspart 8 units TID w/ meals -- HDCF, POC glucose -- Lantus 20 unit HS -- AM glucose: 162 -- Diabetic diet -- A1C 8.1 on 05/24 Hypothyroid -- DIE STORAGE CLERK Levothyroxine -- TSH 0.89 MS Impaired Mobility -- PT/OT -- Rehab consulted- Acute inpt rehab Gout --DIE STORAGE CLERK Allopurinol and colchicine Left Periprosthetic Hip fracture [...] notes from last encounter, lab results, imaging DEA Diggs Pager: [phone] Team pager: [phone] * Tangela Dietz RT - 05/29/2021 9:22 [...] Breath Sounds: Respiratory Effort: Non-Labored * Ladi Daniels, MATT - 05/29/2021 4:[address]Eli Sanchez of patient's B/P, patient is asymptomatic, new orders at t his time, will continue to monitor. * Tangela Schmid MD - 05/29/2021 1:18 PM CDT Chart reviewed. Increased Lantus 20 units qHS with am glucose improved but still elevated. Rest of plan per primary Tangela Schmid MD * Lizeth Sanchez APRN-NP - 05/29/2021 6:21 AM CDT Trauma Progress [...] loss anemia) 03/26/2016 CVA (cerebral vascular accident) ([facility]) 03/26/2016 Class 2 severe obesity due to excess calories with serious comorbidity and b ashli mass index (BMI) of 37.0 to 37.9 in adult ([facility]) 03/17/2016 Anxiety 03/17/2016 CKD (chronic kidney disease) stage 3, GFR 30-59 ml/min ([facility]) 03/17/2016 Dyslipidemia associated with type 2 diabetes mellitus (HCC) 03/17/2016 Type II diabetes mellitus ([facility]) 03/16/2016 Essential hypertension 03/16/2016 Hypothyroid 03/16/2016 Hyperlipidemia 03/16/2016 Neuro Acute pain due to trauma --[place] 1-2 tabs Q4H PRN --Gabapentin 100mg qhs and 200mg daily -- Lidocaine patch -- Robaxin 500mg TID Sleep disturbance/Anxiety/Depression -- melatonin 3mg QHS -- DIE STORAGE CLERK Xanax- D/C due to use of narcotic pain medications -- DIE STORAGE CLERK Zoloft -- Atarax 25mg TID PRN CV HTN/HLD --DIE STORAGE CLERK Coreg, Rosuvastatin, ASA, Zetia, --DIE STORAGE CLERK Aldactone- D/C due to hypotension --HR: 60's-70's SBP: 100's-100's -- Continue to monitor Pulm COPD -- Albuterol Nebs PRN -- Stable on 1L NC. Sp02:96-98% -- Titrate oxygen down with goal of room air. -- Pulmonary toilet, encourage IS GI/FEN Diabetic diet SLIV Zofran prn nausea Monitor and replace lytes prn GERD -- DIE STORAGE CLERK Protonix Risk for Constipation -- Bowel regimen [...] signs of illness Endo DMII -- Holding DIE STORAGE CLERK meds (tradjenta and xigduo) - non formulary -- Aspart 8 units TID w/ meals -- HDCF, POC glucose -- Lantus 20 unit HS -- AM glucose: 254 -- Diabetic diet -- A1C 8.1 on 05/24 Hypothyroid -- DIE STORAGE CLERK Levothyroxine -- TSH ordered and pending results MS Impaired Mobility -- PT/OT -- Rehab consulted- Acute inpt rehab Gout --DIE STORAGE CLERK Allopurinol and colchicine Left Periprosthetic Hip fracture [...] Intake/Output Summary (Last 24 hours) at 05/29/2021 06 Last data filed at 05/29/2021 0524 Gross [...] last encounter, lab results, imaging Lizeth Sanchez APRN-BOILING TUB OPERATOR Pager: [phone] Team pager: [phone] * Glenis Candelaria OTA - 05/28/2021 3:32 [...] and renal function being stable will resume DIE STORAGE CLERK Aldactone Diabetes mellitus type 2 uncontrolled based on admit hemoglobin A1c 8.1%, associ ated with diabetic neuropathy and CKD stage III, BG not at goal, increase lantus 18units and prandial aspart 8 units TID with meals (ordered on 05/28), continue sliding scale insulin CKD stage III,serum creatinine is at baseline, avoid NSAIDs or studies with co ntrast Asthma, no bronchospasms, continue DIE STORAGE CLERK Combivent hypothyroidism, continue levoth yroxine 88 mcg [...] Diabetic diet Internal medicine consult pager # [phone] Subjective Tanja Deal is a 71 y.o. female. Patient [...] 3 (05/28/21 0836) PAINAD Total Score: 0 (05/27/218) Vitals: 05/23/21 1847 Weight: 90.3 kg (199 [...] Screen NEG Electronic Crossmatch YES Unit Number [id number] Blood Component Type RBC,ADSOL,LEUKO REDUCED Unit Division 00 Status OF Unit ISSUED ISSUE DATE TIME PRODUCT CODE [id number] BLOOD TYPE A POS CODING STATUS 6200 BLOOD EXPIRATION DATE [id number] Transfusion Status OK TO TRANSFUSE Crossmatch Result COMPATIBLE,ELECTRONIC POC GLUCOSE Collection Time: 05/28/21 11:45 AM Result Value Ref Range Glucose, POC 305 (H) 70 - 100 MG/DL Point of Care Testing (Last 24 hours) Glucose: (!) 186 (05/28/21 0544) POC Glucose (Download): (!) 305 (05/28/21 1688) Radiology and other Diagnostics Review: No pertinent radiology. Sebastián Marley MD Pager: # [phone] * Lissa Steinberg - 05/28/2021 12:13 PM CDT Vascular Access Team consulted to obtain lab specimen. Ultrasound Used: Yes How Many Attempts: 1 Location of Unsuccessful Attempts: na At 1212 approximately 6 ml of blood obtained from RAC. Patient tolerated the pro cedure well. Specimen labeled and sent to lab. * Cassie Steele PT - 05/28/2021 12:07 PM CDT PHYSICAL [...] Therapist: Cassie Steele PT, DPT, MHAM Date: 05/28/2021 * Alma Rosa Jaramillo PA-C [...] infection, please contact Dr. Wu's office @ [phone]. -Toe touch weightbearing left lower extremity. -Do not get incisions wet. Keep dressings dry. Sponge bathe until follow up appo intment. -Follow up with Dr. Wu 2-3 weeks post operative by calling [phone] to darnell escobar. Should you have a question or concern regarding your orthopedic care or injuries please call our nurse's line at [phone]. Our clinic is located on the 2nd floor of the Medical [facility] on [facility], across from the [facility]. The clinic address is [address], [place] [address] Alma Rosa Jaramillo PA-C 0791 S: No acute events. Pain controlled. Tolerating [...] and intact. Output by Drain (mL) 05/26/21 0701 - 05/26/21 1900 05/26/21 1901 - 05/27/21 0700 05/27/21 0701 - 05/27/21 1900 05/27/21 1901 - 05/28/21 0700 05/28/21 0701 - 0855 Hemovac Drain 05/25/21 1318 [...] Skin Assessment Intact 05/27/212127 Wound Site Closure Rock;Sutures 05/25/21 1415 Number of days: 3 Resulted [...] blood loss anemia) CVA (cerebral vascular accident) (HCC) (Hosp) Class 2 severe obesity due to excess calories with serious comorbidi ty and body mass index (BMI) of 37.0 to 37.9 in adult (HCC) (Hosp) Anxiety (Hosp) CKD (chronic kidney disease) stage 3, GFR 30-59 ml/min (HCC) (Hosp) Dyslipidemia associated with type 2 diabetes mellitus (HCC) (Hosp) Type II diabetes mellitus (HCC) (Hosp) Essential hypertension (Hosp) Hypothyroid (Hosp) Hyperlipidemia * Adriana Granger APRN-KAILEY - 05/28/2021 7:07 AM CDT Trauma Progress 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 09/15/2020 Degenerative arthritis of left knee 08/28/2019 Elevated Lp(a) 07/09/2019 Ischemic cardiomyopathy 03/01/2018 S/P CABG (coronary artery bypass graft) 07/24/2017 CAD (coronary artery disease) 07/27/2016 ABLA (acute blood loss anemia) 03/26/2016 CVA (cerebral vascular accident) ([facility]) 03/26/2016 Class 2 severe obesity due to excess calories with serious comorbidity and b ashli mass index (BMI) of 37.0 to 37.9 in adult ([facility]) 03/17/2016 Anxiety 03/17/2016 CKD (chronic kidney disease) stage 3, GFR 30-59 ml/min ([facility]) 03/17/2016 Dyslipidemia associated with type 2 diabetes mellitus ([facility]) 03/17/2016 Type II diabetes mellitus ([facility]) 03/16/2016 Essential hypertension 03/16/2016 Hypothyroid 03/16/2016 Hyperlipidemia 03/16/2016 Neuro Acute pain due to trauma --[place] 1-2 tabs Q4H PRN --Gabapentin 100mg po BID Sleep disturbance/Anxiety/Depression --melatonin 3mg QHS --DIE STORAGE CLERK Xanax and Zoloft CV HDS. See VS summary below Continue to monitor HTN/HLD --DIE STORAGE CLERK Coreg, Rosuvastatin, ASA, Zetia Pulm Stable on [...] Endo DMII --SSI Regular Insulin 5xday Hypothyroid --DIE STORAGE CLERK Levothyroxine MS PT/OT Gout --DIE STORAGE CLERK Allopurinol and colchicine Left Periprosthetic Hip fracture -- TTWB LLE --HV in place --OR with Ortho on 05/25 --recommend lovenox while in house, followed by asa 81 mg BID x 4 weeks --Upon discharge, please have the patient f/u with Dr. Wu from Orthopedic [facility] in 2 weeks by calling [phone] PPx SCDs, Lovenox Disp - PT/OT/paoin control [...] to vibration, pain, and light touch and He[place] Sco re 15 Derm: Warm, dry, anicteric [...] Net -281.75 ml Date of Last Stool: DIE STORAGE CLERK- increased Medications: Scheduled Meds:allopurinoL (ZYLOPRIM) tablet 300 [...] last encounter, lab results, imaging Adriana Granger, POST PARTUM NURSE-BOILING TUB OPERATOR [id number] Trauma Team Pager [phone] * Glenis CandelariaDON - 05/27/2021 4:30 PM CDT OCCUPATIONAL THERAPY [...] Tub: Walk-in Shower Prior Function Level Of Lajas: Independent with ADLs and functional transfers Lives [...] is currently following with her oncologist in [place], patient had a leuk ocytosis likely a stress response in the setting of CLL, white cell count improv ed 30 K to 13.8 today, platelet count is low likely from recent surgery and blee yakelin, hemoglobin drifted down below 7 today 6.6, primary team ordered 1 unit of PRBC, check H&H posttransfusion, add iron panel to lab drawn prior to transfusion CAD status post CABG 2015 Diastolic cardiomyopathy Continue low dose asa,carvedilol 6.25 mgbid,rosuvastatin 40 mgand zetia, patient received a unit of blood transfusion, BP and renal function being stable will resume DIE STORAGE CLERK Aldactone Diabetes mellitus type 2 uncontrolled based [...] with co ntrast Asthma, no bronchospasms, continue DIE STORAGE CLERK Combivent hypothyroidism, continue levoth yroxine 88 mcg [...] Diabetic diet Internal medicine consult pager # [phone] Subjective Tanja Kathleen Deal is a 71 [...] (Last 24 hours) Glucose: (!) 245 (05/27/21 4767) POC Glucose (Download): (!) 261 (05/27/21 1233) Radiology and other Diagnostics Review: No pertinent radiology. Sebastián Marley MD Pager: # [phone] * Cassie Steele, PT - 05/27/2021 12:41 PM CDT PHYSICAL THERAPY PROGRESS NOTE Name: Tanja Wang "Janeen [...] Therapist: Cassie Steele PT, DPT, AM Date: 05/27/2021 * Alma Rosa Jaramillo PA-C [...] infection, please contact Dr. Wu's office @ [phone]. -Toe touch weightbearing left lower extremity. -Do not get incisions wet. Keep dressings dry. Sponge bathe until follow up appo intment. -Follow up with Dr. Wu 2-3 weeks post operative by calling [phone] to [facility]. Should you have a question or concern regarding your orthopedic care or injuries please call our nurse's line at [phone]. Our clinic is located on the 2nd floor of the [facility] on [facility], across from the [facility]. The clinic address is [address] [place] [address] Alma Rosa Jaramillo PA-C Orthopedic Surgery Physician Senior Dentist P. 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 09/15/2020 Degenerative arthritis of left knee 08/28/2019 Elevated Lp(a) 07/09/2019 Ischemic cardiomyopathy 03/01/2018 S/P CABG (coronary artery bypass graft) 07/24/2017 CAD (coronary artery disease) 07/27/2016 ABLA (acute blood loss anemia) 03/26/2016 CVA (cerebral vascular accident) ([facility]) 03/26/2016 Class 2 severe obesity due to excess calories with serious comorbidity and b ashli mass index (BMI) of 37.0 to 37.9 in adult ([facility]) 03/17/2016 Anxiety 03/17/2016 CKD (chronic kidney disease) stage 3, GFR 30-59 ml/min ([facility]) 03/17/2016 Dyslipidemia associated with type 2 diabetes mellitus ([facility]) 03/17/2016 Type II diabetes mellitus ([facility]) 03/16/2016 Essential hypertension 03/16/2016 Hypothyroid 03/16/2016 Hyperlipidemia 03/16/2016 Neuro Acute pain due to trauma --[place] 1-2 tabs Q4H PRN --Gabapentin 100mg po BID Sleep disturbance/Anxiety/Depression --melatonin 3mg QHS --DIE STORAGE CLERK Xanax and Zoloft CV HDS. See VS summary below Continue to monitor HTN/HLD --DIE STORAGE CLERK Coreg, Rosuvastatin, ASA, Zetia Pulm Stable on [...] Endo DMII --SSI Regular Insulin 5xday Hypothyroid --DIE STORAGE CLERK Levothyroxine MS PT/OT Gout --DIE STORAGE CLERK Allopurinol and colchicine Left Periprosthetic Hip fracture -- TTWB LLE --HV in place --OR with Ortho on 05/25 --recommend lovenox while in house, followed by asa 81 mg BID x 4 weeks --Upon discharge, please have the patient f/u with Dr. Wu from Orthopedic Surg [facility] in 2 weeks by calling [phone] PPx SCDs, Lovenox Disp - PT/OT/paoin control [...] to vibration, pain, and light touch and Heber Sco re 15 Derm: Warm, dry, anicteric [...] Net -360 ml Date of Last Stool: DIE STORAGE CLERK- increased Medications: Scheduled Meds:allopurinoL (ZYLOPRIM) tablet 300 [...] last encounter, lab results, imaging Adriana Granger APRN-BOILING TUB OPERATOR [id number] Trauma Team Pager [phone] * Sebastián Marley MD - 05/26/2021 5:25 [...] with co ntrast Asthma, no bronchospasms, continue DIE STORAGE CLERK Combivent hypothyroidism, continue levoth yroxine 88 mcg daily Obesity class II with a BMI 37.6,patient reported she is already working on we ight loss by restricting calories Gout,continue colchicine Mood disorder, depression,continue Zoloft milligrams daily Acute blood loss anemia secondary to fracture and surgery Anemia and thrombocytopenia likely due to known history of CLL, patient is curre ntly following with her oncologist in [place], her white cell count is up today 3 0 K, however she has no overt signs of infection likely a stress response, ICS t o prevent atelectasis Discussed with patient and her daughter on 05/24 to get a non urgent referral for OP DEXA scan and polysomnography after dc DVT prophylaxis: Lovenox Diet: Diabetic diet Subjective Tanja Deal is a 71 y.o. female. Patient [...] 24 Mack r Range BP: 126/42 (05/26 132) Temp: 37.3 C (99.2 F) (05/26 132) Pulse: 77 (05/26 132) Respirations: 18 PER MINUTE (05/26 132) SpO2: 93 % (05/26 1327) BP: (98-129)/(41-49) [...] 0558) POC Glucose (Download): (!) 262 (05/26/21 1159) Radiology and other Diagnostics Review: No pertinent radiology. Sebastián Marley MD Pager: # [phone] * Cassie Steele, PT - 05/26/2021 3:04 [...] Inpatient setting;Recommend rehab medicine consult Therapist Cassie Steele PT, DPT, [facility] Date 05/26/2021 * Eduin Barron MD - 05/26/2021 1:41 PM CDT Orthopedic Ortho TraumaProgress Note A/P: Tanjajared Deal is a 71F w/ L periprosthetic [...] patient f/u with Dr. Wu from [facility]opedic [facility] in 2 weeks by calling [phone] Eduin Barron MD [id number] S: No acute events. Pain controlled. Tolerating [...] Assessment Intact 05/26/21 0936 Wound Site Closure Rock;Sutures 05/25/21 1415 Number of days: 1 Resulted Micro Last 72 Hrs No results found Output by Drain (mL) 05/24/21 0701 - 05/24/21 1900 05/24/21 1901 - 05/25/21 0700 05/25/21 0701 - 05/25/21 1900 05/25/21 1901 - 05/26/21 0700 05/26/21 0701 - 1341 Hemovac Drain 05/25/21 1318 Left;Upper Leg 63 36.5 13 Complete Blood Counts Recent Labs 05/23/21 2045 05/24/21 0551 05/25/21 0440 05/26/21 0558 HGB 12.5 11.6* 10.9* 8.3* HCT 38.7 36.2 32.6* 25.4* WBC 19.5* 20.8* 20.4* 30.2* PLTCT 127* 121* 104* 105* Chemistry Panel Recent Labs 05/23/21 2045 05/24/21 0551 05/25/21 0440 05/26/21 0558 NA 141 [...] Trauma (Hosp) Thrombocytopenia (HCC) (Hosp) Hip fracture ([facility]) COVID-19 virus infection Left foot drop White [...] blood loss anemia) CVA (cerebral vascular accident) ([facility]) (Hosp) Class 2 severe obesity due to excess calories with serious comorbidi ty and body mass index (BMI) of 37.0 to 37.9 in adult ([facility]) (Hosp) Anxiety (Hosp) CKD (chronic kidney disease) stage 3, GFR 30-59 ml/min ([facility]) (Hosp) Dyslipidemia associated with type 2 diabetes mellitus (HCC) (Hosp) Type II diabetes mellitus ([facility]) (Hosp) Essential hypertension (Hosp) Hypothyroid (Hosp) Hyperlipidemia * Destiney Calhoun APRN-BOILING TUB OPERATOR - 05/26/2021 12:57 PM CDT Orthopedic Ortho [...] if output is ne gligible. Destiney Calhoun, POST PARTUM NURSE-BOILING TUB OPERATOR Orthopedic Trauma Services [id number] S: No acute [...] Assessment Intact 05/26/21 0936 Wound Site Closure Rock;Sutures 05/25/21 1415 Number of days: 1 Resulted [...] Trauma (Hosp) Thrombocytopenia (HCC) (Hosp) Hip fracture ([facility]) COVID-19 virus infection Left foot drop White [...] blood loss anemia) CVA (cerebral vascular accident) ([facility]) (Hosp) Class 2 severe obesity due to excess calories with serious comorbidi ty and body mass index (BMI) of 37.0 to 37.9 in adult ([facility]) (Hosp) Anxiety (Hosp) CKD (chronic kidney disease) stage 3, GFR 30-59 ml/min ([facility]) (Hosp) Dyslipidemia associated with type 2 diabetes mellitus ([facility]) (Hosp) Type II diabetes mellitus ([facility]) (Hosp) Essential hypertension (Hosp) Hypothyroid (Hosp) Hyperlipidemia * Maggie Roth RT - 05/26/2021 12:43 PM CDT RT [...] Sounds: Clear Respiratory Effort: Non-labored * Micheline Simons, OT - 05/26/2021 10:58 AM CDT OCCUPATIONAL [...] Tub: Walk-in Shower Prior Function Level Of [place]: Independent with ADLs and functional transfers Lives [...] Micheline Simons OT Date: 05/26/2021 * Adriana Granger APRN-KAILEY - 05/26/2021 6:53 AM CDT Trauma Progress 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 09/15/2020 Degenerative arthritis of left knee 08/28/2019 Elevated Lp(a) 07/09/2019 Ischemic cardiomyopathy 03/01/2018 S/P CABG (coronary artery bypass graft) 07/24/2017 CAD (coronary artery disease) 07/27/2016 ABLA (acute blood loss anemia) 03/26/2016 CVA (cerebral vascular accident) ([facility]) 03/26/2016 Class 2 severe obesity due to excess calories with serious comorbidity and b ashli mass index (BMI) of 37.0 to 37.9 in adult ([facility]) 03/17/2016 Anxiety 03/17/2016 CKD (chronic kidney disease) stage 3, GFR 30-59 ml/min ([facility]) 03/17/2016 Dyslipidemia associated with type 2 diabetes mellitus ([facility]) 03/17/2016 Type II diabetes mellitus ([facility]) 03/16/2016 Essential hypertension 03/16/2016 Hypothyroid 03/16/2016 Hyperlipidemia 03/16/2016 Neuro Acute pain due to trauma --[place] 1-2 tabs Q4H PRN --Gabapentin 100mg po BID Sleep disturbance/Anxiety/Depression --melatonin 3mg QHS --DIE STORAGE CLERK Xanax and Zoloft CV HDS. See VS summary below Continue to monitor HTN/HLD --DIE STORAGE CLERK Coreg, Rosuvastatin, ASA, Zetia Pulm Stable on [...] Endo DMII --SSI Regular Insulin 5xday Hypothyroid --DIE STORAGE CLERK Levothyroxine MS PT/OT Gout --DIE STORAGE CLERK Allopurinol and colchicine Left Periprosthetic Hip fracture -- TTWB LLE --HV in place --OR with Ortho on 05/25 --recommend lovenox while in house, followed by asa 81 mg BID x 4 weeks --Upon discharge, please have the patient f/u with Dr. Wu from Orthopedic Surg [facility] in 2 weeks by calling [phone] PPx SCDs, Lovenox Disp - PT/OT/paoin control [...] Net -754.5 ml Date of Last Stool: DIE STORAGE CLERK Medications: Scheduled Meds:allopurinoL (ZYLOPRIM) tablet 300 mg, [...] last encounter, lab results, imaging Adriana Granger APRN-BOILING TUB OPERATOR [id number] Trauma Team Pager [phone] * Tamara Ulloa, PT - 05/25/2021 2:10 [...] [facility] by calling [phone] Lenin Carbone MD Pager [phone] * Sebastián Marley MD - 05/25/2021 8:45 [...] pain at rest or with minimal exertion DIE STORAGE CLERK, she has no overt signs of heart [...] with con trast Asthma, no bronchospasms, continue DIE STORAGE CLERK Combivent hypothyroidism, continue levoth yroxine 88 mcg daily Obesity class II with a BMI 37.6, patient reported she is already working on Keeck[place] POPAPP by restricting calories Gout, continue colchicine Mood [...] medically optimized for procedure today. Subjective Tanja Deal is a 71 y.o. [...] lactated ringers infusion 100 mL/hr at 05/24/21 1913 PRN and Respiratory Meds:acetaminophen Q4H PRN, albuterol [...] %] Intensity Pain Scale (Self Report): 6 (05/24/21 1945) Vitals: 05/23/21 1847 Weight: 90.3 kg (199 [...] (Last 24 hours) Glucose: (!) 188 (05/25/21 0440) POC Glucose (Download): (!) 187 (05/25/21 3377) Radiology and other Diagnostics Review: No pertinent radiology. Sebastián Marley MD Pager: # [phone] * Dany Winter, DADA-BOILING TUB OPERATOR - 05/25/2021 7:48 AM CDT Trauma Progress [...] loss anemia) 03/26/2016 CVA (cerebral vascular accident) ([facility]) 03/26/2016 Class 2 severe obesity due to excess calories with serious comorbidity and b ashli mass index (BMI) of 37.0 to 37.9 in adult ([facility]) 03/17/2016 Anxiety 03/17/2016 CKD (chronic kidney disease) stage 3, GFR 30-59 ml/min ([facility]) 03/17/2016 Dyslipidemia associated with type 2 diabetes mellitus ([facility]) 03/17/2016 Type II diabetes mellitus ([facility]) 03/16/2016 Essential hypertension 03/16/2016 Hypothyroid 03/16/2016 Hyperlipidemia 03/16/2016 Neuro Acute pain due to trauma --Tylenol 650mg po q 4 hours PRN --Fenanyl 25-50mcg IV q 1 hour PRN severe pain --Gabapentin 100mg po BID Sleep disturbance CV HDS. See VS summary below Continue to monitor DIE STORAGE CLERK Coreg and Rosuvastatin Pulm Stable on RA. [...] of illness Endo SSI Regular Insulin 5xday DIE STORAGE CLERK Levothyroxine MS PT/OT Gout DIE STORAGE CLERK Allopurinol and colchicine Left Periprosthetic Hip fracture [...] SCDs, Lovenox Disp - Continue inpatient care SW/ following for discharge planning needs. Patient discussed [...] to vibration, pain, and light touch and Heber Sco re 15 Derm: Warm, dry, anicteric [...] Net -1090 ml Date of Last Stool: DIE STORAGE CLERK Medications: Scheduled Meds:allopurinoL (ZYLOPRIM) tablet 300 mg, [...] Infusions: lactated ringers infusion 100 mL/hr at 05/24/211912 PRN and Respiratory Meds:acetaminophen Q4H PRN, albuterol [...] last encounter, lab results, imaging Dany Winter, POST PARTUM NURSE-BOILING TUB OPERATOR [id number] Trauma Team Pager [phone] * Loy Huizar MD - 05/25/2021 5:42 AM CDT Brief Ortho Note OR today for operative fixation of left periprosthetic femur fracture. Please keep NPO Posted, needs consent Loy Huizar MD P [phone] * Jody Sheikh, RN - 05/25/2021 5:38 AM CDT Re: [...] base line and was independent/driving. Therapist Dee Reid PT , DPT Date 05/24/2021 * Eduin Barron MD - 05/24/2021 10:35 AM CDT Brief ortho update note Patient can have a diet from our standpoint for today. [facility] She will go to OR with Dr Wu tomorrow 05/25 for ORIF L periprosthetic femur fracture. Please page ortho with any questions or concerns. Anderson [phone] * Dany Winter, POST PARTUM NURSE-BOILING TUB OPERATOR - 05/24/2021 8:32 AM CDT Trauma Progress [...] loss anemia) 03/26/2016 CVA (cerebral vascular accident) ([facility]) 03/26/2016 Class 2 severe obesity due to excess calories with serious comorbidity and b ashli mass index (BMI) of 37.0 to 37.9 in adult ([facility]) 03/17/2016 Anxiety 03/17/2016 CKD (chronic kidney disease) stage 3, GFR 30-59 ml/min ([facility]) 03/17/2016 Dyslipidemia associated with type 2 diabetes mellitus ([facility]) 03/17/2016 Type II diabetes mellitus ([facility]) 03/16/2016 Essential hypertension 03/16/2016 Hypothyroid 03/16/2016 Hyperlipidemia 03/16/2016 Neuro Acute pain due to trauma --Tylenol 650mg po q 4 hours PRN --Fenanyl 25-50mcg IV q 1 hour PRN severe pain --Gabapentin 100mg po BID Sleep disturbance CV HDS. See VS summary below Continue to monitor DIE STORAGE CLERK Coreg and Rosuvastatin Pulm Stable on RA. [...] of illness Endo SSI Regular Insulin 5xday DIE STORAGE CLERK Levothyroxine MS PT/OT Gout DIE STORAGE CLERK Allopurinol and colchicine Left Periprosthetic Hip fracture [...] SCDs, Lovenox Disp - Continue inpatient care SW/ following for discharge planning needs. Patient discussed [...] Net 241 ml Date of Last Stool: DIE STORAGE CLERK Medications: Scheduled Meds:allopurinoL (ZYLOPRIM) tablet 300 mg, [...] IV 05/23/21 1908 Left Antecubital 20 G <1 day Drain Indwelling Urinary Catheter 05/23/21 1908 <1 day Airway ETT 1888 days Pertinent labs, medications, radiology, and diagnostic procedures reviewed inclu ding: active problem list, medication list, allergies, family history, social hi story, health maintenance, notes from last encounter, lab results, imaging Dany Winter, POST PARTUM NURSE-BOILING TUB OPERATOR [id number] Trauma Team Pager [phone] * Toño Palm RN - 05/23/2021 11:09 [...] Morbid obesity with BMI of 40.0-44.9, adult ([facility]) 03/17/2016 Neuropathy Patient denies Numbness and tingling in left hand Due to CVA Osteoarthritis Stroke ([facility]) 03/22/2016 RUE weakness Thyroid disease Type II diabetes mellitus ([facility]) 03/16/2016 Managed with metformin & glimepiride PSHx: Surgical History: Procedure Laterality Date HX HEART CATHETERIZATION 03/2016 Lt Heart Cath With Ventriculogram Left 03/17/2016 Performed by [facility] REFRIGERATION MECHANIC Coronary Angiography N/A 03/17/2016 Performed by Lenin Coreas MD at 2 HOUSEHOLD REFRIGERATION MECHANIC BYPASS GRAFT CORONARY ARTERY, SIOBHAN, EVH N/A 03/22/2016 Performed by Demarco Byrd MD at 3 CVOR HIP SURGERY Left 09/09/2016 L hip/ Pelvis - fracture repair ARTHROPLASTY TOTAL KNEE Left 08/28/2019 Performed by Uday Sánchez MD at [facility] OR MANIPULATION KNEE JOINT UNDER GENERAL ANESTHESIA Left 12/18/2019 Performed by Uday Sánchez MD at [facility] OR CARDIAC SURGERY CHOLECYSTECTOMY HI postoperative KNEE REPLACEMENT KNEE SURGERY Social Hx: Social History Socioeconomic History Marital status: Spouse name: Not on file Number of children: 3 Years of education: 10 Highest education level: 10th grade Occupational History 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 Dany Winter, POST PARTUM NURSE-BOILING TUB OPERATOR [id number] * Zhanna Artis MD - 05/23/2021 7:09 [...] Morbid obesity with BMI of 40.0-44.9, adult ([facility]) 03/17/2016 Neuropathy Patient denies Numbness and tingling in left hand Due to CVA Osteoarthritis Stroke ([facility]) 03/22/2016 RUE weakness Thyroid disease Type II diabetes mellitus ([facility]) 03/16/2016 Managed with metformin & glimepiride PSH: Surgical History: Procedure Laterality Date HX HEART CATHETERIZATION 03/2016 Lt Heart Cath With Ventriculogram Left 03/17/2016 Performed by Lenin Coreas MD at 2 HOUSEHOLD REFRIGERATION MECHANIC Coronary Angiography N/A 03/17/2016 Performed by Lenin Coreas MD at 2 HOUSEHOLD REFRIGERATION MECHANIC BYPASS GRAFT CORONARY ARTERY, SIOBHAN, EVH N/A 03/22/2016 Performed by Demarco Byrd MD at 3 CVOR HIP SURGERY Left 09/09/2016 L hip/ Pelvis - fracture repair ARTHROPLASTY TOTAL KNEE Left 08/28/2019 Performed by Uday Sánchez MD at [facility] OR MANIPULATION KNEE JOINT UNDER GENERAL ANESTHESIA Left 12/18/2019 Performed by Uday Sánchez MD at [facility] OR CARDIAC SURGERY CHOLECYSTECTOMY HI postoperative KNEE REPLACEMENT KNEE SURGERY Meds: No [...] mg by mouth twice daily with m eals. 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 year old female admitted to [facility] on 05/23/2021 with the following issues: Left [...] lat e effects of weakness, presenting to [facility] on 05/23 follo wing a fall during [...] No current treatment required Gout Heart attack ([facility]) 03/14/2016 History of non-ST elevation myocardial infarction (NSTEMI) 03/14/2016 Hyperlipidemia 03/16/2016 Hypothyroid 03/16/2016 Kidney insufficiency 07/09/19 BUN/Cr: 26/1.23 - Monitored by PCP Morbid obesity with BMI of 40.0-44.9, adult ([facility]) 03/17/2016 Neuropathy Patient denies Numbness and tingling in left hand Due to CVA Osteoarthritis Stroke ([facility]) 03/22/2016 RUE weakness Thyroid disease Type II diabetes mellitus ([facility]) 03/16/2016 Managed with metformin & glimepiride Surgical History: Procedure Laterality Date HX HEART CATHETERIZATION 03/2016 Lt Heart Cath With Ventriculogram Left 03/17/2016 Performed by Lenin [facility] Coronary Angiography N/A 03/17/2016 Performed by Lenin Coreas MD at 2 HOUSEHOLD REFRIGERATION MECHANIC BYPASS GRAFT CORONARY ARTERY, SIOBHAN, EVH N/A 03/22/2016 Performed by Demarco Byrd MD at 3 CVOR HIP SURGERY Left 09/09/2016 L hip/ Pelvis - fracture repair ARTHROPLASTY TOTAL KNEE Left 08/28/2019 Performed by Uday Sánchez MD at [facility] OR MANIPULATION KNEE JOINT UNDER GENERAL ANESTHESIA Left 12/18/2019 Performed by Uday Sánchez MD at [facility] OR OPEN TREATMENT WITH INTERNAL FIXATION OF PERIPROSTHETIC LEFT FEMUR FRACTURE Left 05/25/2021 Performed by Raman Wu MD at [facility] OR CARDIAC SURGERY CHOLECYSTECTOMY HI postoperative KNEE REPLACEMENT KNEE SURGERY Social History Socioeconomic History Marital status: Spouse name: Not on file Number of children: 3 Years of education: 10 Highest education level: 10th grade Occupational History 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 DEPARTMENT CLINICIAN COGNITIVE EVALUATION SUMMARY PRAGMATICS: BEHAVIOR: AUDITORY COMPREHENSION: ORIENTATION: AUDITORY ATTENTION/WORKING MEMORY: AUDITORY MEMORY/SUSTAINED ATTENTION: NEW LEARNING: SEQUENCING/ORGANIZATION: PROBLEM SOLVING: REASONING: MATH/MONEY SKILLS: VISUAL PERCEPTUAL: SWALLOW EVALUATION SUMMARY Review of Systems: A 14 point review of systems was negative except for: that noted in the HPI Physical Exam: BP: 112/43 (05/27 1045) Temp: 37.1 C (98.7 F) (05/27 104) Pulse: 78 (05/27 104) Respirations: 16 PER MINUTE (05/27 1045) SpO2: 98 % (05/27 1045) Body mass index is 37.6 kg/m. Gen: [...] with con trast Asthma, no bronchospasms, continue DIE STORAGE CLERK Combivent hypothyroidism, continue levoth yroxine 88 mcg daily Obesity class II with a BMI 37.6, patient reported she is already working on juvenal ght loss by restricting calories Gout, continue [...] a 71 y.o. female with past med ica history of hypertension, CAD status post CABG 2015, CVA with left-sided fe day, CKD stage III, obesity, left hip replacement [...] Morbid obesity with BMI of 40.0-44.9, adult ([facility]) 03/17/2016 Neuropathy Patient denies Numbness and tingling in left hand Due to CVA Osteoarthritis Stroke ([facility]) 03/22/2016 RUE weakness Thyroid disease Type II diabetes mellitus ([facility]) 03/16/2016 Managed with metformin & glimepiride Surgical History: Procedure Laterality Date HX HEART CATHETERIZATION 03/2016 Lt Heart Cath With Ventriculogram Left 03/17/2016 Performed by Lenin [facility]as MD at [facility] Coronary Angiography N/A 03/17/2016 Performed by Lenin Coreas MD at 2 HOUSEHOLD REFRIGERATION MECHANIC BYPASS GRAFT CORONARY ARTERY, SIOBHAN, EVH N/A 03/22/2016 Performed by Demarco Byrd MD at [facility] CVOR HIP SURGERY Left 09/09/2016 L hip/ Pelvis - fracture repair ARTHROPLASTY TOTAL KNEE Left 08/28/2019 Performed by Uday Sánchez MD at [facility] OR MANIPULATION KNEE JOINT UNDER GENERAL ANESTHESIA Left 12/18/2019 Performed by Uday Sánchez MD at [facility] OR CARDIAC SURGERY CHOLECYSTECTOMY [id number] HI postoperative KNEE REPLACEMENT KNEE SURGERY Social History Socioeconomic History Marital status: Spouse name: Not on file Number of children: 3 Years of education: 10 Highest education level: 10th grade 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 Sebastián Marley MD Pager: [phone] * Eduin Barron MD - 05/23/2021 9:15 [...] times , contact the orthopedic surgery resident ribbon tier for any questions or concerns. History of [...] left hand Due to CVA Osteoarthritis Stroke ([facility]) 03/22/2016 RUE weakness Thyroid disease Type II diabetes mellitus ([facility]) 03/16/2016 Managed with metformin & glimepiride Surgical History: Procedure Laterality Date HX HEART CATHETERIZATION 03/2016 Lt Heart Cath With Ventriculogram Left 03/17/2016 Performed by [facility] at [facility] Coronary Angiography N/A 03/17/2016 Performed by Lenin Coreas MD at [facility] BYPASS GRAFT CORONARY ARTERY, SIOBHAN, EVH N/A 03/22/2016 Performed by Demarco Byrd MD at [facility] CVOR HIP SURGERY Left 09/09/2016 L hip/ Pelvis - fracture repair ARTHROPLASTY TOTAL KNEE Left 08/28/2019 Performed by Uday Sánchez MD at [facility] OR MANIPULATION KNEE JOINT UNDER GENERAL ANESTHESIA Left 12/18/2019 Performed by Uday Sánchez MD at [facility] OR CARDIAC SURGERY CHOLECYSTECTOMY HI postoperative KNEE REPLACEMENT KNEE SURGERY Social History [...] Radiology: No results found. Eduin Barron MD [phone] documented in this encounter Miscellaneous Notes * Case Mgmt DC Plan - Evette Rubio LMSW - 06/01/2021 10:04 AM CDT Case Management Progress Note NAME:Tanja Wang "Freda" Say :1950 AGE: 71 y.o. ADMISSION DATE: 05/23/2021 DAYS ADMITTED: LOS: 9 days Todays Date: 06/01/2021 Plan Discharge to [facility] today at 12:30. Interventions Support Info or Referral Discharge Planning Discharge Planning: Inpatient Rehabilitation ZACKARY received notification pt is medically stable to discharge today. Pt has been accepted to [facility]. ZACKARY messaged [facility] admissions team, who report they are able to accept pt tod . ZACKARY notified team and bedside RN. Transportation arrangement for pickler helper at 12:30. Pt going to room 2228. [...] selected for the patient. Evette Rubio LMSW [employer] Bo[employer] Router Desk: [phone] Pager: [phone] * Case Mgmt DC Plan - Marilee Contreras RN - 06/01/2021 9:40 AM CDT 0906: Notified by Evette AGUERO) that patient is medically stable to dc today. Mati l medically review and follow up per updates. 0925: Per chart review, the patient continues to have goals to warrant an inpati ent rehab admission and is medically clear for an admission today. Will notify S W and plan for admission to [facility] today. 1024: Notified Evette (ZACKARY) that rehab able to admit today. Transportation w ill be scheduled for 1230 via stretcher van with [facility]. ZACKARY to noti fy patient's primary RN of discharge time, rehab bed assignment of 2228 and u nit phone# for report (). Please leave in any functioning IV access for tr ansition to 's IP rehab unit. 1146: Provided patient's daughter, Lynette, with education re: 's IP rehab fac ility via telephone conversation Information included: members of the interdisc iplinary team, therapy scheduling, team conference, RN to patient ration, daily physician rounds, fall prevention, appropriate clothing to have, family training , restricted visiting policy due to COVID-19 and parking for visitors. The follo wing information was obtained from Lynette. Preferred Name to be Addressed by: Freda Barab denied any further questions. Patient is agreeable to an admission at 's rehab facility. TIA Pinedo, RN Inpatient Rehab Admission Nurse (office: [phone] or voalte: [phone]) TIA Gardiner, RN * Care Plan - [...] of care. SW touched base with [facility] admissions team, and they will need a follow up w the [facility] rehab d/t pt being low level. If [facility] can accept, they anticipate a bed po ssibly tomorrow 06/01. 4:38p Rehab Medicine identified significant improvement, and considers pt to be a candidate. SW to follow up with [facility] admissions team regarding when they will have [...] care. She prefers to d/c to [facility] , however is pending [facility] rehab medicine consult. [facility] (reviewing, clinically accepted pending a bed tomorrow) [address] [place] [address] Medication Needs Financial Legal Other Disposition Expected [...] services have been selected for the patient. [facility] * Case Mgmt DC Plan - Jasmine Torres RN - 05/31/2021 11:31 AM CDT Notified by Le (ZACKARY) that patient is ready for discharge. Informed ZACKARY that [facility] needs f/u from rehab consult team. Informed ZACKARY that anticipate possible be d Monday if deemed appropriate. TIA Mathews RN Inpatient Rehab Admission Nurse (office: [phone] or voalte) * Care Plan - Kaylie Henry RN [...] mobility outcomes Outcome: Goal Ongoing * Care Alondra - Ines Pickett RN - 05/30/2021 5:33 [...] Interventions Support Info or Referral Discharge Planning ZACKARY met with pt to discuss dc plans. [...] 05/28/2021 9:03 AM CDT Notified by Gale (ZACKARY) that the patient is anticipated to be ready for discharge this weekend and would prefer to stay at 's rehab unit. 0950: Per chart review, patients hgb is 6.8 today - would need transfusion. Pilar ent should work with PT/OT today as consult team had concerns for endurance (mati l need consult team to chart check after notes are in for appropriateness). Noti fied ZACKARY re: chart review. 1411: Notified Gale (ZACKARY) that if patient is deemed appropriate after f/u from r ehab consult team - [facility] will not have a bed until likely Monday at the [facility]. TIA Mathews RN Inpatient Rehab Admission Nurse (office: [phone] or voalte) * Case Mgmt DC Plan [...] aware she will nee d placement at dc. Pt has previously been to a facility in [place] after her stroke however states she does not want to return there. Pt states she would be open to rehab and [facility]. SW sent referrals and rehab consult placed. [...] 71 y.o. female : 1950 MRN# : [id number] DATE OF OPERATION: 05/25/2021 Date: 05/25/2021 Preoperative Dx: Closed fracture of left hip, initial encounter (HCC) [S72.002A] Post-op Diagnosis * Closed fracture of left hip, initial encounter ([facility]) [S72.002A] Procedure(s) (LRB): OPEN TREATMENT WITH INTERNAL FIXATION OF PERIPROSTHETIC LEFT FEMUR FRACTURE (Lef t) Surgeon(s) and Role: * Raman Wu MD - Primary * Lenin Carbone MD - Resident - Assisting Findings: L manny-prosthetic femur fx Estimated Blood Loss: 1200 ml Specimen(s) Removed/Disposition: * No specimens in log * Complications: None Implants: Implant Name Type Inv. Item Serial No. Associate Partner Lot No. LRB No. Used Action PIN POSITIONING 4.5MM LCP STAINLESS STEEL CERCLAGE THREADED - [id number] PIN POSI TIONING 4.5MM LCP STAINLESS STEEL CERCLAGE THREADED [id number] 25P 1229 Left 1 Implanted CABLE ORTHOPEDIC STAINLESS STEEL 1.7MM 750MM LONG BONE CRIMP - [id number] CABLE O RTHOPEDIC STAINLESS STEEL 1.7MM 750MM LONG BONE CRIMP [id number] DEPcuaQea P [id number] Left 1 Implanted CABLE ORTHOPEDIC STAINLESS STEEL 1.7MM 750MM LONG BONE CRIMP - [id number] CABLE O RTHOPEDIC STAINLESS STEEL 1.7MM 750MM LONG BONE CRIMP [id number] DEPcuaQea P [id number] Left 1 Implanted 4.5MM LCP PROXIMAL FEMUR PLATE 242.114 SYNTHES [employer] 242.114 Left 1 Impl anted CABLE ORTHOPEDIC STAINLESS STEEL 1.7MM 750MM LONG BONE CRIMP - [id number] CABLE O RTHOPEDIC STAINLESS STEEL 1.7MM 750MM LONG BONE CRIMP [id number] DEPcuaQea P [id number] Left 1 Implanted SCREW BONE 5MM 18MM LCP STAINLESS STEEL FULL THREAD T25 - [id number] SCREW BONE 5 MM 18MM LCP STAINLESS STEEL FULL THREAD T25 212.203 DEPUY [employer] 212.203 Lef t 1 Implanted SCREW BONE 5MM 30MM LCP STAINLESS STEEL T25 FULL THREAD CONE - [id number] SCREW B ONE 5MM 30MM LCP STAINLESS STEEL T25 FULL THREAD CONE 212.209 DEPUY [employer] 2 12.209 Left 1 Implanted 7.3 CANNULATED LOCKING SCREW 02.207.050 [employer] 02.207.050 Left 2 Implanted SCREW BONE 5MM 40MM LCP STAINLESS STEEL FULL THREAD T25 - [id number] SCREW BONE 5 MM 40MM LCP STAINLESS STEEL FULL THREAD T25 212.214 DEPUY [employer] 212.214 Lef t 1 Implanted SCREW BONE 4.5MM 40MM LCP STAINLESS STEEL STANDARD CORTICAL - [id number] SCREW TITUS NE 4.5MM 40MM LCP STAINLESS STEEL STANDARD CORTICAL 214.840 DEPUY [employer] 214 .840 Left 3 Implanted SCREW BONE 3.5MM 16MM LCP STAINLESS STEEL FULL THREAD PELVIS - S212.104 SCREW B ONE 3.5MM 16MM LCP STAINLESS STEEL FULL THREAD PELVIS 212.104 DEPUY [employer] 2 12.104 Left 1 Implanted SCREW BONE 3.5MM 20MM LCP STAINLESS STEEL TIBIA PROXIMAL - S212.106 SCREW BONE 3.5MM 20MM LCP STAINLESS STEEL TIBIA PROXIMAL 212.106 DEPUY [employer] 212.106 L eft 3 Implanted 3.5MM LOCKING ATTACHMENT PLATES, FOR 4.5MM LCP PROXIMAL FEMUR PLATES 02.120.60 3 SYNTHES [employer] [place] 02.120.603 Left 1 Implanted Drains: Hemovac: 10 mL Disposition: PACU - stable Lenin Carbone MD Pager [phone] Associated attestation - Raman Wu MD - [...] Left periprosthetic femoral shaft fr acture CPT: 31793 ATTENDING SURGEON: Dr. Raman Wu MD RESIDENT: [...] noted to have good fixation. We then zabrinaentia kevin placed nonlocking screws in the distal aspect [...] female who was a trauma transfer to [facility] from [facility] in [place], [place], on 05/23/2021, after a trip and [...] worked with therapies. She has been to [facility] [place] in the past. Patient Address/Phone Tanja Deal (Dee) [address] [phone] (home) Emergency Contact Extended Emergency Contact Information Primary Emergency Contact: Lynette Tapia [facility] Mobile Relation: Daughter Secondary Emergency Contact: Leanne Whipple [facility] Mobile Relation: Daughter Healthcare Directive Has a [...] Financial Resources Coverage Primary Insurance: Medicare (SSN: [id number]) Additional Coverage: RX Source of Income Source [...] a day. Her last HA1c in the [facility] was 12.4 on 02/02/2021. She had a prior fracture of her left hip requiring pin carmine in September 2016. She underwent left knee arthroplasty in August 2019. Sharon mckeon had a 3-vessel CABG in March 2016 with a stroke immediately afterwards. . Her o nly abdominal surgery is a prior laproscopic cholecystectomy. Pharmacy [facility] - [place], [place] - [address] [facility] [address] [facility] [address] [facility] - [place], [place] - [address] [facility] [address] [facility] [address] Durable Medical Equipment Durable Medical Equipment at home: Pyramid Cane, Shower Chair, Grab bars, Toilet riser Home Health Receiving home health: No Hemodialysis or Peritoneal Dialysis Undergoing hemodialysis or peritoneal dialysis: No Tube/Enteral Feeds Receive tube/enteral feeds: No Infusion Receive infusions: No Private Duty Private duty help used: No Home and Community Based Services Home and community based services: No Steve Carcamo: No Hospice Hospice: No Outpatient Therapy PT: In the past When did patient receive care?: Following knee replacement surgery patient atten ded PT at [facility] in [place], [place] Would patient return for future services?: Yes OT: In the past When did patient receive care?: Following CVA in 2016 Detention Facility/Alf SNF: No NH: No Inpatient Rehab [facility]: Yes [facility] Would patient return for future services?: Yes [facility] LTACH: No Acute Hospital Stay Acute Hospital Stay: In the past Was patient's stay within the last 30 days?: No Will continue to follow for discharge planning and support, Janet Green RN, BSN Trauma & Burn Lead Pharmacy Technician Pager: [phone] * Care Plan - Ethel Winter RN [...] pain Outcome: Goal Ongoing Flowsheets (Taken 05/24/2021 102) Management of pain: Complete pain assessment scale [...] present for advance care planning conversation: resident/fellow kimani annan Pertinent details of conversation (including direct quotes [...] MG/DL MAIN LAB Specimen Performing Organization Address [facility] P curry Number MAIN LAB [address] [place] [address] * POC GLUCOSE (06/01/2021 7:39 AM CDT) Glucose, POC 103 (H) 70 - 100 MG/DL MAIN LAB Specimen Performing Organization Address [facility]/ZIP [facility] P curry Number MAIN LAB [address] [place] [address] * POC GLUCOSE (06/01/2021 3:09 AM CDT) Glucose, POC 106 (H) 70 - 100 MG/DL MAIN LAB Specimen Performing Organization Address [facility]/ZIP [facility] P curry Number MAIN LAB [address] [place] [address] * POC GLUCOSE (05/31/2021 8:58 PM CDT) Glucose, POC 137 (H) 70 - 100 MG/DL MAIN LAB Specimen Performing Organization Address [facility]/ZIP [facility] P curry Number MAIN LAB [address] [place] [address] * POC GLUCOSE (05/31/2021 4:25 PM CDT) Glucose, POC 190 (H) 70 - 100 MG/DL KU MAIN LAB Specimen Performing Organization Address City/[facility]/ZIP Code P curry Number MAIN LAB [address] [place] [address] * POC GLUCOSE (05/31/2021 11:48 AM CDT) Glucose, POC 201 (H) 70 - 100 MG/DL KU MAIN LAB Specimen Performing Organization Address [facility]/ZIP Code P curry Number MAIN LAB [address] [place] [address] * POC GLUCOSE (05/31/2021 8:02 AM CDT) Glucose, POC 105 (H) 70 - 100 MG/DL MAIN LAB Specimen Performing Organization Address [facility] Code P curry Number MAIN LAB [address] [place] [address] * POC GLUCOSE (05/30/2021 9:15 PM CDT) Glucose, POC 189 (H) 70 - 100 MG/DL MAIN LAB Specimen Performing Organization Address [facility] Code P curry Number MAIN LAB [address] [place] [address] * POC GLUCOSE (05/30/2021 4:50 PM CDT) Glucose, POC 174 (H) 70 - 100 MG/DL MAIN LAB Specimen Performing Organization Address [facility]/ZIP Code P curry Number MAIN LAB [address] [place] [address] * POC GLUCOSE (05/30/2021 11:32 AM CDT) Glucose, POC 199 (H) 70 - 100 MG/DL KU MAIN LAB Specimen Performing Organization Address [facility]/ZIP Code P curry Number MAIN LAB [address] [place] [address] * POC GLUCOSE (05/30/2021 9:07 AM CDT) Glucose, POC 146 (H) 70 - 100 MG/DL MAIN LAB Specimen Performing Organization Address [facility]/ZIP Code P curry Number MAIN LAB [address] [place] [address] * TSH WITH FREE T4 REFLEX (05/30/2021 4:43 AM CDT) TSH 0.89 0.35 - 5.00 MCU/ML KU MAIN LAB Specimen Blood Performing Organization Address [facility] Code P curry Number KU MAIN LAB [address] [place] [address] * POC GLUCOSE (05/30/2021 3:16 AM CDT) Glucose, POC 162 (H) 70 - 100 MG/DL KU MAIN LAB Specimen Performing Organization Address [facility] P curry Number KU MAIN LAB [address] [place] [address] * POC GLUCOSE (05/29/2021 9:48 PM CDT) Glucose, POC 224 (H) 70 - 100 MG/DL KU MAIN LAB Specimen Performing Organization Address [facility] P curry Number KU MAIN LAB [address] [place] [address] * POC GLUCOSE (05/29/2021 5:19 PM CDT) Glucose, POC 208 (H) 70 - 100 MG/DL KU MAIN LAB Specimen Performing Organization Address [facility] Code P curry Number KU MAIN LAB [address] [place] [address] * POC GLUCOSE (05/29/2021 11:35 AM CDT) Glucose, POC 242 (H) 70 - 100 MG/DL KU MAIN LAB Specimen Performing Organization Address [facility] P curry Number KU MAIN LAB [address] [place] [address] * BASIC METABOLIC PANEL (05/29/2021 10:55 AM [...] (L) >60 mL/min KU MAIN LAB Comment: [place] The eGFR is not validated f or use in drug dosing adjustments. Continue to use estimated creatinine clearance per dosing reference text. Please contact the Clinical Pharmacist for questions. eGFR >60 >60 mL/min KU MAIN LAB [place] Islander Comment: The eGFR is not validated for use in drug dosing adjustments. Continue to use estimated creatinine clearance per dosing reference text. Please contact the Clinical Pharmacist for questions. Specimen Blood Performing Organization Address City/[facility]/ZIP Code P curry Number KU MAIN LAB [address] [place] [id number] * CBC (05/29/2021 10:55 AM CDT) White [...] MAIN LAB Specimen Blood Performing Organization Address [facility] P curry Number KU MAIN LAB [address] [place] [id number] * POC GLUCOSE (05/29/2021 9:33 AM CDT) Glucose, POC 173 (H) 70 - 100 MG/DL KU MAIN LAB Specimen Performing Organization Address City/[facility]/ZIP [facility] P curry Number KU MAIN LAB [address] [place] [address] * POC GLUCOSE (05/29/2021 8:27 AM CDT) Glucose, POC 184 (H) 70 - 100 MG/DL KU MAIN LAB Specimen Performing Organization Address [facility]/ZIP [facility] P curry Number KU MAIN LAB [address] [place] [address] * POC GLUCOSE (05/29/2021 3:08 AM CDT) Glucose, POC 162 (H) 70 - 100 MG/DL KU MAIN LAB Specimen Performing Organization Address City/[facility]/ZIP Code P curry Number MAIN LAB [address] [place] [address] * POC GLUCOSE (05/28/2021 9:57 PM CDT) Glucose, POC 149 (H) 70 - 100 MG/DL KU MAIN LAB Specimen Performing Organization Address City/[facility]/ZIP Code P curry Number KU MAIN LAB [address] [place] [address] * POC GLUCOSE (05/28/2021 5:55 PM CDT) Glucose, POC 264 (H) 70 - 100 MG/DL MAIN LAB Specimen Performing Organization Address City/[facility] Code P curry Number MAIN LAB [address] [place] [address] * HEMOGLOBIN & HEMATOCRIT (05/28/2021 5:30 PM CDT) Hemoglobin 8.0 (L) 12.0 - 15.0 GM/DL KU MAIN LAB Hematocrit 24.3 (L) 36 - 45 % MAIN LAB Specimen Performing Organization Address [facility] Code P curry Number MAIN LAB [address] [place] [address] * HEMOGLOBIN & HEMATOCRIT (05/28/2021 5:00 PM CDT) Hemoglobin 7.6 (L) 12.0 - 15.0 GM/DL KU MAIN LAB Hematocrit 23.1 (L) 36 - 45 % KU MAIN LAB Specimen Blood Performing Organization Address City/[facility] Code P curry Number MAIN LAB [address] [place] [address] * TRANSFUSE RBC'S (05/28/2021 4:39 PM CDT) Specimen Blood * TRANSFUSE RBC'S (05/28/2021 4:39 PM CDT) Specimen Blood * POC GLUCOSE (05/28/2021 11:45 AM CDT) Glucose, POC 305 (H) 70 - 100 MG/DL MAIN LAB Specimen Performing Organization Address City/[facility]/ZIP Code P curry Number MAIN LAB [address] [place] [address] * TYPE & CROSSMATCH (05/28/2021 11:10 AM CDT) Units Ordered 1 MAIN LAB Crossmatch 05/31/2021,2359 KU MAIN LAB Expires Record Check FOUND KU MAIN LAB ABO/RH(D) A POS KU MAIN LAB Antibody Screen NEG KU MAIN LAB Electronic YES MAIN LAB Crossmatch Unit Number [id number] MAIN LAB Blood Component RBC,ADSOL,LEUKO REDUCED KU MAIN LAB Type Unit Division 00 KU MAIN LAB Status OF Unit TRANSFUSED KU MAIN LAB ISSUE DATE TIME KU MAIN LAB PRODUCT CODE [id number] KU MAIN LAB BLOOD TYPE A POS MAIN LAB CODING STATUS 6200 KU MAIN LAB BLOOD [id number] KU MAIN LAB EXPIRATION DATE Transfusion OK TO TRANSFUSE KU MAIN LAB Status Crossmatch COMPATIBLE,ELECTRONIC MAIN LAB Result Specimen Midstream Performing Organization Address City/[facility]/ZIP Code P curry Number MAIN LAB [address] [place] [address] * POC GLUCOSE (05/28/2021 7:25 AM CDT) Glucose, POC 205 (H) 70 - 100 MG/DL KU MAIN LAB Specimen Performing Organization Address City/[facility]/ZIP Code P curry Number MAIN LAB [address] [place] [address] * PHOSPHORUS (05/28/2021 5:44 AM CDT) Phosphorus 2.1 2.0 - 4.5 MG/DL MAIN LAB Specimen Blood Performing Organization Address City/[facility]/ZIP Code P curry Number MAIN LAB [address] [place] [address] * MAGNESIUM (05/28/2021 5:44 AM CDT) Magnesium 2.1 1.6 - 2.6 mg/dL MAIN LAB Specimen Blood Performing Organization Address City/[facility]/ZIP Code P curry Number MAIN LAB [address] [place] [id number] * COMPREHENSIVE METABOLIC PANEL (05/28/2021 5:44 AM CDT) Sodium 137 137 - 147 MMOL/L KU MAIN LAB Potassium 4.3 3.5 - 5.1 MMOL/L MAIN LAB Chloride 102 98 - 110 MMOL/L MAIN LAB Glucose 186 (H) 70 - [...] (L) >60 mL/min KU MAIN LAB Comment: [place] The eGFR is not validated f or use in drug dosing adjustments. Continue to use estimated creatinine clearance per dosing reference text. Please contact the Clinical Pharmacist for questions. eGFR >60 >60 mL/min KU MAIN LAB [place] Comment: The eGFR is not validated for use in drug dosing adjustments. Continue to use estimated creatinine clearance per dosing reference text. Please contact the Clinical Pharmacist for questions. Specimen Blood Performing Organization Address City/State/ZIP Code P curry Number KU MAIN LAB [address] [place] [address] * CBC (05/28/2021 5:44 AM CDT) White [...] P curry Number KU MAIN LAB [address] [place] [address] * POC GLUCOSE (05/28/2021 3:04 AM CDT) Glucose, POC 201 (H) 70 - 100 MG/DL KU MAIN LAB Specimen Performing Organization Address [facility] P curry Number KU MAIN LAB [address] [place] [address] * POC GLUCOSE (05/27/2021 8:57 PM CDT) Glucose, POC 270 (H) 70 - 100 MG/DL KU MAIN LAB Specimen Performing Organization Address [facility] Code P curry Number KU MAIN LAB [address] [place] [address] * POC GLUCOSE (05/27/2021 6:44 PM CDT) Glucose, POC 301 (H) 70 - 100 MG/DL KU MAIN LAB Specimen Performing Organization Address [facility] P curry Number KU MAIN LAB [address] [place] [address] * POC GLUCOSE (05/27/2021 4:36 PM CDT) Glucose, POC 288 (H) 70 - 100 MG/DL KU MAIN LAB Specimen Performing Organization Address [facility] P curry Number KU MAIN LAB [address] [place] [address] * CBC (05/27/2021 2:25 PM CDT) White Blood 17.1 (H) 4.5 - 11.0 K/UL KU MAIN LAB Cells RBC 2.35 (L) 4.0 - 5.0 M/UL KU MAIN LAB Hemoglobin 7.4 (L) 12.0 - 15.0 GM/DL KU MAIN LAB Hematocrit 22.1 (L) 36 - 45 % KU MAIN LAB MCV 94.2 80 - 100 FL KU MAIN LAB MCH 31.6 26 - 34 PG MAIN LAB MCHC 33.6 32.0 - 36.0 G/DL MAIN LAB RDW 19.2 (H) 11 - 15 % KU MAIN LAB Platelet Count 97 (L) 150 - 400 K/UL MAIN LAB MPV 9.2 7 - 11 FL KU MAIN LAB Specimen Blood Performing Organization Address [facility] Code P curry Number MAIN LAB [address] [place] [address] * TRANSFUSE RBC'S (05/27/2021 12:52 PM CDT) Specimen Blood * TRANSFUSE RBC'S (05/27/2021 12:52 PM CDT) Specimen Blood * POC GLUCOSE (05/27/2021 12:33 PM CDT) Glucose, POC 261 (H) 70 - 100 MG/DL KU MAIN LAB Specimen Performing Organization Address [facility] Code P curry Number KU MAIN LAB [address] [place] [address] * POC GLUCOSE (05/27/2021 8:29 AM CDT) Glucose, POC 201 (H) 70 - 100 MG/DL MAIN LAB Specimen Performing Organization Address [facility] P curry Number MAIN LAB [address] [place] [address] * IRON + BINDING CAPACITY + %SAT+ FERRITIN (05/27/2021 4:17 AM CDT) Iron 55 50 - 160 MCG/DL KU MAIN LAB Iron 261 (L) 270 - 380 MCG/DL MAIN LAB Binding-TIBC % Saturation 21 (L) 28 - 42 % KU MAIN LAB Ferritin 411 (H) 10 - 200 NG/ML MAIN LAB Specimen Performing Organization Address [facility] P curry Number MAIN LAB [address] [place] [address] * PHOSPHORUS (05/27/2021 4:17 AM CDT) Phosphorus 2.4 2.0 - 4.5 MG/DL MAIN LAB Specimen Blood Performing Organization Address [facility] Code P curry Number MAIN LAB [address] [place] [address] * MAGNESIUM (05/27/2021 4:17 AM CDT) Magnesium 1.9 1.6 - 2.6 mg/dL MAIN LAB Specimen Blood Performing Organization Address [facility] P curry Number MAIN LAB [address] [place] [address] * COMPREHENSIVE METABOLIC PANEL (05/27/2021 4:17 AM [...] (L) >60 mL/min KU MAIN LAB Comment: [place] The eGFR is not validated f or use in drug dosing adjustments. Continue to use estimated creatinine clearance per dosing reference text. Please contact the Clinical Pharmacist for questions. eGFR 50 (L) >60 mL/min KU MAIN LAB [place] Comment: The eGFR is not validated for use in drug dosing adjustments. Continue to use estimated creatinine clearance per dosing reference text. Please contact the Clinical Pharmacist for questions. Specimen Blood Performing Organization Address City/State/ZIP Code P curry Number KU MAIN LAB [address] [place] [address] * CBC (05/27/2021 4:17 AM CDT) White Blood 13.8 (H) 4.5 - 11.0 K/UL KU MAIN LAB Cells RBC 2.08 (L) 4.0 - 5.0 M/UL KU MAIN LAB Hemoglobin 6.6 (L) 12.0 - 15.0 GM/DL KU MAIN LAB Hematocrit 20.1 (L) 36 - 45 % KU MAIN LAB MCV 96.5 80 - 100 FL KU MAIN LAB MCH 31.8 26 - 34 PG KU MAIN LAB MCHC 32.9 32.0 - 36.0 G/DL KU MAIN LAB RDW 17.9 (H) 11 - 15 % KU MAIN LAB Platelet Count 93 (L) 150 - 400 K/UL KU MAIN LAB MPV 9.4 7 - 11 FL KU MAIN LAB Specimen Blood Performing Organization Address [facility]/ZIP Code P curry Number KU MAIN LAB [address] [place] [address] * POC GLUCOSE (05/27/2021 2:21 AM CDT) Glucose, POC 287 (H) 70 - 100 MG/DL KU MAIN LAB Specimen Performing Organization Address City/[facility]/ZIP Code P curry Number KU MAIN LAB [address] [place] [address] * POC GLUCOSE (05/26/2021 9:25 PM CDT) Glucose, POC 227 (H) 70 - 100 MG/DL KU MAIN LAB Specimen Performing Organization Address [facility] P curry Number KU MAIN LAB [address] [place] [address] * POC GLUCOSE (05/26/2021 5:31 PM CDT) Glucose, POC 307 (H) 70 - 100 MG/DL KU MAIN LAB Specimen Performing Organization Address [facility] P curry Number MAIN LAB [address] [place] [address] * FOOT 2 VIEW BILATERAL (05/26/2021 1:19 [...] on 05/26/2021 2:22 PM. Performing Organization Address [facility] P crury Number KU RAD RESULTS * ANKLE MIN [...] on 05/26/2021 2:22 PM. Performing Organization Address [facility] P curry Number KU RAD RESULTS * POC GLUCOSE (05/26/2021 11:59 AM CDT) Glucose, POC 262 (H) 70 - 100 MG/DL KU MAIN LAB Specimen Performing Organization Address [facility] Code P curry Number KU MAIN LAB [address] [place] [address] * POC GLUCOSE (05/26/2021 7:27 AM CDT) Glucose, POC 173 (H) 70 - 100 MG/DL KU MAIN LAB Specimen Performing Organization Address [facility] P curry Number KU MAIN LAB [address] [place] [address] * PHOSPHORUS (05/26/2021 5:58 AM CDT) Phosphorus 4.0 2.0 - 4.5 MG/DL KU MAIN LAB Specimen Blood Performing Organization Address [facility] P curry Number KU MAIN LAB [address] [place] [address] * MAGNESIUM (05/26/2021 5:58 AM CDT) Magnesium 1.9 1.6 - 2.6 mg/dL KU MAIN LAB Specimen Blood Performing Organization Address [facility] P curry Number KU MAIN LAB [address] [place] [address] * COMPREHENSIVE METABOLIC PANEL (05/26/2021 5:58 AM [...] (L) >60 mL/min KU MAIN LAB Comment: [place] The eGFR is not validated f or use in drug dosing adjustments. Continue to use estimated creatinine clearance per dosing reference text. Please contact the Clinical Pharmacist for questions. eGFR 52 (L) >60 mL/min KU MAIN LAB [place] Comment: The eGFR is not validated for use in drug dosing adjustments. Continue to use estimated creatinine clearance per dosing reference text. Please contact the Clinical Pharmacist for questions. Specimen Blood Performing Organization Address City/[facility]/ZIP Code P curry Number KU MAIN LAB [address] [place] [address] * CBC (05/26/2021 5:58 AM CDT) White [...] MAIN LAB Specimen Blood Performing Organization Address [facility] P curry Number KU MAIN LAB [address] [place] [address] * POC GLUCOSE (05/26/2021 3:27 AM CDT) Glucose, POC 209 (H) 70 - 100 MG/DL KU MAIN LAB Specimen Performing Organization Address City/[facility] P curry Number KU MAIN LAB [address] [place] [address] * POC GLUCOSE (05/25/2021 10:37 PM CDT) Glucose, POC 252 (H) 70 - 100 MG/DL KU MAIN LAB Specimen Performing Organization Address City/[facility]/ZIP Code P curry Number KU MAIN LAB [address] [place] [address] * POC GLUCOSE (05/25/2021 9:07 PM CDT) Glucose, POC 257 (H) 70 - 100 MG/DL KU MAIN LAB Specimen Performing Organization Address City/[facility]/ZIP Code P curry Number KU MAIN LAB [address] [place] [address] * POC GLUCOSE (05/25/2021 5:45 PM CDT) Glucose, POC 226 (H) 70 - 100 MG/DL KU MAIN LAB Specimen Performing Organization Address City/[facility]/ZIP Code P curry Number MAIN LAB [address] [place] [address] * POC GLUCOSE (05/25/2021 2:55 PM CDT) Glucose, POC 238 (H) 70 - 100 MG/DL MAIN LAB Specimen Performing Organization Address [facility]/ZIP Code P curry Number MAIN LAB [address] [place] [address] * FLUORO MOBILE IN OR (05/25/2021 1:21 PM CDT) Specimen Narrative Performed At This order has been auto finalized and does not conta in a result. NADER CARVAJAL Performing Organization Address City/[facility]/ZIP Code P curry Number NADER RAD * POC GLUCOSE (05/25/2021 10:17 AM CDT) Glucose, POC 179 (H) 70 - 100 MG/DL MAIN LAB Specimen Performing Organization Address City/[facility]/ZIP Code P curry Number MAIN LAB [address] [place] [address] * POC GLUCOSE (05/25/2021 7:55 AM CDT) Glucose, POC 187 (H) 70 - 100 MG/DL MAIN LAB Specimen Performing Organization Address City/[facility]/ZIP Code P curry Number MAIN LAB [address] [place] [address] * PHOSPHORUS (05/25/2021 4:40 AM CDT) Phosphorus 3.8 2.0 - 4.5 MG/DL MAIN LAB Specimen Blood Performing Organization Address City/[facility]/ZIP Code P curry Number MAIN LAB [address] [place] [address] * MAGNESIUM (05/25/2021 4:40 AM CDT) Magnesium 1.8 1.6 - 2.6 mg/dL KU MAIN LAB Specimen Blood Performing Organization Address City/[facility]/ZIP Code P ucrry Number KU MAIN LAB [address] [place] [address] * COMPREHENSIVE METABOLIC PANEL (05/25/2021 4:40 AM [...] (L) >60 mL/min KU MAIN LAB Comment: [place] The eGFR is not validated f or use in drug dosing adjustments. Continue to use estimated creatinine clearance per dosing reference text. Please contact the Clinical Pharmacist for questions. eGFR 45 (L) >60 mL/min KU MAIN LAB [place] Comment: The eGFR is not validated for use in drug dosing adjustments. Continue to use estimated creatinine clearance per dosing reference text. Please contact the Clinical Pharmacist for questions. Specimen Blood Performing Organization Address City/State/ZIP Code P curry Number KU MAIN LAB [address] [place] [address] * CBC (05/25/2021 4:40 AM CDT) White Blood 20.4 (H) 4.5 - 11.0 K/UL KU MAIN LAB Cells RBC 3.37 (L) 4.0 - 5.0 M/UL MAIN LAB Hemoglobin 10.9 (L) 12.0 - 15.0 GM/DL MAIN LAB Hematocrit 32.6 (L) 36 - 45 % MAIN LAB MCV 96.7 80 - 100 FL MAIN LAB MCH 32.3 26 - 34 PG MAIN LAB MCHC 33.4 32.0 - 36.0 G/DL MAIN LAB RDW 17.6 (H) 11 - 15 % MAIN LAB Platelet Count 104 (L) 150 - 400 K/UL [facility] LAB MPV 9.5 7 - 11 FL [facility] LAB Specimen Blood Performing Organization Address [facility]/ZIP Code P curry Number MAIN LAB [address] [place] [address] * POC GLUCOSE (05/25/2021 2:42 AM CDT) Glucose, POC 157 (H) 70 - 100 MG/DL MAIN LAB Specimen Performing Organization Address [facility] Code P curry Number MAIN LAB [address] [place] [id number] * POC GLUCOSE (05/24/2021 9:24 PM CDT) Glucose, POC 196 (H) 70 - 100 MG/DL MAIN LAB Specimen Performing Organization Address [facility] Code P curry Number MAIN LAB [address] [place] [id number] * POC GLUCOSE (05/24/2021 5:01 PM CDT) Glucose, POC 260 (H) 70 - 100 MG/DL MAIN LAB Specimen Performing Organization Address [facility] Code P curry Number MAIN LAB [address] [place] [address] * POC GLUCOSE (05/24/2021 11:54 AM CDT) Glucose, POC 169 (H) 70 - 100 MG/DL MAIN LAB Specimen Performing Organization Address [facility] Code P curry Number MAIN LAB [address] [place] [id number] * TYPE & CROSSMATCH (05/24/2021 10:21 AM CDT) Units Ordered 3 MAIN LAB Crossmatch 05/27/2021,2359 KU MAIN LAB Expires Record Check FOUND KU MAIN LAB ABO/RH(D) A POS MAIN LAB Antibody Screen NEG MAIN LAB Electronic YES MAIN LAB Crossmatch Unit Number [id number] MAIN LAB Blood Component RBC,ADSOL,LEUKO REDUCED KU MAIN LAB Type Unit Division 00 KU MAIN LAB Status OF Unit TRANSFUSED KU MAIN LAB ISSUE DATE TIME [id number] KU MAIN LAB PRODUCT CODE [id number] MAIN LAB BLOOD TYPE A POS MAIN LAB CODING STATUS 6200 MAIN LAB BLOOD [id number] KU MAIN LAB EXPIRATION DATE Transfusion OK TO TRANSFUSE KU MAIN LAB Status Crossmatch COMPATIBLE,ELECTRONIC MAIN LAB Result Specimen Arm, Right Performing Organization Address [facility]/ZIP Code P curry Number MAIN LAB [address] [place] [address] * POC GLUCOSE (05/24/2021 8:23 AM CDT) Glucose, POC 175 (H) 70 - 100 MG/DL MAIN LAB Specimen Performing Organization Address [facility] P curry Number MAIN LAB [address] [place] [phone] * HEMOGLOBIN A1C (05/24/2021 5:51 AM CDT) Hemoglobin A1C 8.1 (H) 4.0 - 6.0 % MAIN LAB Comment: The ADA recommends that most patients with type 1 and type 2 diabetes maintain an A1c level <7%. Specimen Blood Performing Organization Address [facility] P curry Number MAIN LAB [address] [place] [phone] * PHOSPHORUS (05/24/2021 5:51 AM CDT) Phosphorus 4.9 (H) 2.0 - 4.5 MG/DL MAIN LAB Specimen Blood Performing Organization Address City/[facility]/ZIP Code P curry Number MAIN LAB [address] [place] [phone] * MAGNESIUM (05/24/2021 5:51 AM CDT) Magnesium 2.0 1.6 - 2.6 mg/dL MAIN LAB Specimen Blood Performing Organization Address [facility]/ZIP Code P curry Number MAIN LAB [address] [place] [phone] * COMPREHENSIVE METABOLIC PANEL (05/24/2021 5:51 AM [...] (L) >60 mL/min KU MAIN LAB Comment: [place] The eGFR is not validated f or use in drug dosing adjustments. Continue to use estimated creatinine clearance per dosing reference text. Please contact the Clinical Pharmacist for questions. eGFR 46 (L) >60 mL/min KU MAIN LAB [place] Comment: The eGFR is not validated for use in drug dosing adjustments. Continue to use estimated creatinine clearance per dosing reference text. Please contact the Clinical Pharmacist for questions. Specimen Blood Performing Organization Address City/State/ZIP Code P curry Number KU MAIN LAB [address] [place] [address] * CBC (05/24/2021 5:51 AM CDT) White Blood 20.8 (H) 4.5 - 11.0 K/UL KU MAIN LAB Cells RBC 3.71 (L) 4.0 - 5.0 M/UL KU MAIN LAB Hemoglobin 11.6 (L) 12.0 - 15.0 GM/DL KU MAIN LAB Hematocrit 36.2 36 - 45 % KU MAIN LAB MCV 97.7 80 - 100 FL KU MAIN LAB MCH 31.4 26 - 34 PG KU MAIN LAB MCHC 32.1 32.0 - 36.0 G/DL KU MAIN LAB RDW 18.2 (H) 11 - 15 % KU MAIN LAB Platelet Count 121 (L) 150 - 400 K/UL KU MAIN LAB MPV 9.3 7 - 11 FL KU MAIN LAB Specimen Blood Performing Organization Address [facility]/ZIP Code P curry Number KU MAIN LAB [address] [place] [address] * POC GLUCOSE (05/24/2021 3:11 AM CDT) Glucose, POC 178 (H) 70 - 100 MG/DL KU MAIN LAB Specimen Performing Organization Address [facility] P curry Number MAIN LAB [address] [place] [address] * UA REFLEX LABEL (05/23/2021 10:45 PM CDT) Pathologist [facility] UA Reflex Criteria for reflex to culture [facility] Culture are WBC>10, Positive Nitrit e, and/or >=+1 leukocytes. If quantity is not sufficient, an addendum will follow. Specimen Urine Performing Organization Address [facility] Code P curry Number MAIN LAB [address] [place] [address] * URINALYSIS MICROSCOPIC REFLEX TO CULTURE (05/23/2021 10:45 PM CDT) WBCs,UA 0-2 0 - 2 /HPF MAIN LAB RBCs,UA 2-10 0 - 3 /HPF MAIN LAB Comment,UA Criteria for reflex to culture KU [facility] LAB are WBC>10, Positive Nitrite, and/or >=+1 leukocytes. If quantity is not sufficient, an addendum will follow. MucousUA TRACE MAIN LAB Specimen Urine Performing Organization Address [facility] P curry Number KU MAIN LAB [address] [place] [address] * URINALYSIS DIPSTICK REFLEX TO CULTURE (05/23/2021 10:45 PM CDT) Color,UA YELLOW KU MAIN LAB Turbidity,UA 1+ (A) CLEAR-CLEAR MAIN LAB Specific 1.028 1.003 - 1.035 MAIN LAB Loop-Urine pH,UA 5.0 5.0 - 8.0 KU MAIN [...] Acid, UA Specimen Urine Performing Organization Address City/State/ZIP Code P curry Number KU MAIN LAB [address] [place] [address] * CT LOWER EXTREM WO CONT LEFT [...] Sagittal and coronal reformations were rendered utilizing e axial image data set area Comparison: [...] Number KU RAD RESULTS * POC GLUCOSE (05/23/2021 9:04 PM CDT) Glucose, POC 131 (H) 70 - 100 MG/DL KU MAIN LAB Specimen Performing Organization Address City/State/ZIP Code P curry Number KU MAIN LAB [address] [place] [address] * PHOSPHORUS (05/23/2021 8:45 PM CDT) Phosphorus 4.0 2.0 - 4.5 MG/DL KU MAIN LAB Specimen Blood Performing Organization Address City/[facility]/ZIP Code P curry Number KU MAIN LAB [address] [place] [address] * MAGNESIUM (05/23/2021 8:45 PM CDT) Magnesium 2.0 1.6 - 2.6 mg/dL KU MAIN LAB Specimen Blood Performing Organization Address City/[facility]/ZIP Code P curry Number KU MAIN LAB [address] [place] [address] * COMPREHENSIVE METABOLIC PANEL (05/23/2021 8:45 PM [...] (L) >60 mL/min KU MAIN LAB Comment: [place] The eGFR is not validated f or use in drug dosing adjustments. Continue to use estimated creatinine clearance per dosing reference text. Please contact the Clinical Pharmacist for questions. eGFR 52 (L) >60 mL/min KU MAIN LAB [place] Comment: The eGFR is not validated for use in drug dosing adjustments. Continue to use estimated creatinine clearance per dosing reference text. Please contact the Clinical Pharmacist for questions. Specimen Blood Performing Organization Address City/[facility]/ZIP Code P curry Number MAIN LAB [address] [place] [address] * CBC (05/23/2021 8:45 PM CDT) White [...] MAIN LAB Specimen Blood Performing Organization Address City/[facility] Code P curry Number KU MAIN LAB [address] [place] [phone] * TELEMETRY STRIPS-SCAN (05/23/2021 12:00 AM CDT) Narrative Performed At This result has an attachment that is n ot available. Ordered by an unspecified provider. documented in this encounter Visit Diagnoses Diagnosis Closed fracture of left hip, initial en counter (HCC) documented in this encounter Admitting Diagnoses Diagnosis Trauma Injury, other and unspecified, unspecif ied site documented in this encounter Administered Medications Action Date Dose Rate Site Medication Order MAR Action 06/01/2021 8:30 AM CDT 650 mg acetaminophen (TYLENOL) tablet 650 mg Given 650 mg, Oral, EVERY 6 HOURS WHILE AWAKE, First dose on 05/30/21 at 0915, Until Discontinued, TOTAL ACETAMINOPHEN DOSE [...] 300 mg Given 05/24/2021 9:16 AM CDT 06/01/2021 8:30 AM CDT 81 mg aspirin EC tablet 81 mg Given 81 mg, Oral, DAILY, First dose on Mon05/24/21 at 1830, Until Discontinued 81 mg Given [...] 3.125 mg Given 05/30/2021 9:42 PM CDT 06/01/2021 8:31 AM CDT 5,000 Units cholecalciferol (VITAMIN D-3) tablet Given 5,000 Units 5,000 Units, Oral, DAILY, First dose on 05/24/21 at 1830, Until Discontinued 5,000 Units Given [...] 0.6 mg, Oral, DAILY PRN, Starting on 05/23/21 at 2032, Until Mon06/01/21 at 1307, Pain [...] 10 mg Given 05/24/2021 6:11 PM CDT 05/31/2021 8:05 PM CDT 100 [...] 200 mg Given 05/29/2021 9:23 AM CDT 06/01/2021 1:06 AM CDT 25 mg hydrOXYzine HCL (ATARAX) tablet 25 mg Given 25 mg, Oral, THREE TIMES DAILY PRN, Starting on Mon05/29/21 at 1024, Until 8/24/21 at 1307, Anxiety PO, Itchin g PO 05/31/2021 5:33 PM CDT 4 Units Arm, Rig ht insulin aspart (U-100) (NOVOLOG FLEXPEN Given U-100 INSULIN) injection PEN 0-24 Units 0-24 Units, Subcutaneous, BEFORE MEALS AND 2200, First dose on Mon05/29/21 at 1700, Until Discontinued, -POC glucose 181-220mg/dL at , , administer 4 units insulin, at 22, 03* administer 0 units. -POC glucose 221-260mg/dL at , , administer 8 units insulin, at , 03* administer 4 units. -POC glucos e 261-300mg/dL at , , administer 1 2 units insulin, at , 03* administer 8 units. -POC glucose 301-350mg/dL at , , administer 16 units insulin, at , * administer 12 units. -POC glucose 351-400mg/dL at , , administer 20 units insulin, at , 03* administer 16 units. -POC glucose >400mg/dL at , , administer 24 units insulin, at , [...] Units Abdomen:LLQ Given 05/29/2021 6:04 PM CDT 06/01/2021 9:44 AM CDT 8 [...] Arm, Left Given 05/28/2021 6:00 PM CDT 05/31/2021 9:12 PM CDT 20 Units Arm, [...] Arm, Right Given 05/29/2021 9:53 PM CDT 06/01/2021 6:08 AM CDT 88 mcg levothyroxine (SYNTHROID) tablet 88 mcg Given 88 mcg, Oral, DAILY, First dose on 05/24/21 at 0900, Until Discontinued, Give 1 hour [...] mL, Oral, DAILY, First dose on Falguni 21 at 1115, Until Discontinued, 10 mL CONC = 30 mL MOM 06/01/2021 10:41 AM CDT 5 mg oxyCODONE [...] 40 mg Given 05/23/2021 10:36 PM CDT 06/01/2021 8:29 AM CDT 17 g polyethylene [...] 17 g Given 05/26/2021 10:19 PM CDT 06/01/2021 8:29 AM CDT 40 mg rosuvastatin [...] 40 mg Given 05/24/2021 9:15 AM CDT 06/01/2021 8:30 [...] mg Given 05/24/2021 6:12 PM CDT 05/25/2021 1:16 PM CDT 3,000 mL Leg, Lef t sodium chloride 0.9 % irrigation bag Given INTRA-PROCEDURE MED, Starting on Mon05/25/21 at 1316, Until Mon05/25/21 at 1412, Intra-op 05/25/2021 1:16 PM CDT 1 g Leg, Lef t vancomycin (VANCOCIN) injection Given INTRA-PROCEDURE MED, Starting on Mon05/25/21 at 1316, Until Mon05/25/21 at 1412, Intra-op documented in this encounter Discontinued Medications Start [...] needed for Wheezing or Shortness of Breath. Qgydabzxhvnes-Zs-Kdrd-Min Take 1 tablet 0 erals 18-0.4 mg [...] Order 05/30/2021 0837 (Given - Provider: Ines Pickett, MATT)1531 (Given - Provider: Ines Pickett RN)2004 (Given - Provider: Ines Pickett RN) 0830 (Given - Provider: Emerald Leger, MATT) acetaminophen (TYLENOL) tablet 650 mg 0946 (Given - 650 mg, Oral, EVERY 6 HOURS WHILE Provider: Santy DE LA O, First dose on Mon05/30/21 at MATT Daniels)1511 0915, Until Discontinued, TOTAL (Given - Provider: ACETAMINOPHEN DOSE NOT TO EXCEED 4GM Ladi sanchez, DAILY RN)2141 (Given - Provider: Kaylie Henry RN) 0837 (Given - Provider: Ines Pickett RN) 0830 (Given - Provider: Emerald Leger, MATT) allopurinoL (ZYLOPRIM) tablet 300 mg 0931 (Given - 300 mg, Oral, DAILY, First dose on Mon Provider: Alaina christopher 05/24/21 at 0900, Until Discontinued MATT Daniels) 0838 (Given - Provider: Ines Pickett RN) 0830 (Given - Provider: Emerald Leger, MATT) aspirin EC tablet 81 mg 0931 (Given [...] therapy yesterday morning after morning dose of coreg)2105 (Med Not Given - Provider: Altagracia Antunez RN - Reason: Patient Refused) 0834 (Given - Provider: Emerald Leger, MATT) carvediloL (COREG) tablet 3.125 mg 2142 (Given - 3.125 mg, Oral, TWICE DAILY, [...] RN)2004 (Given - Provider: Ines Pickett RN) 0829 (Given - Provider: Emerald Leger RN) enoxaparin [...] Leger RN) ezetimibe (ZETIA) tablet 10 mg 09 (Given - 10 mg, Oral, DAILY, First dose on Mon Provider: Larisa lu 05/24/21 at 1830, Until Discontinued MATT Daniels) 2004 (Given - Provider: Ines Pickett RN) gabapentin (NEURONTIN) capsule 100 mg 2140 (Given - 100 mg, Oral, AT BEDTIME DAILY, First Provider: Blane andrews dose on Mon05/28/21 at 2100, Until MATT Henry) Discontinued 08 (Given - Provider: Ines Pickett RN) 08 (Given - Provider: Emerald Leger RN) gabapentin (NEURONTIN) capsule 200 mg 932 (Given - 200 mg, Oral, DAILY, First dose on Sat Provider: Alaina christopher 05/29/21 at 0900, Until Discontinued MATT Daniels) ibuprofen (MOTRIN) tablet 600 mg 932 (Given - (COMPLETED) Provider: Ladi 600 mg, Oral, THREE TIMES DAILY WITH [...] Comment: [phone] (Due - Provider: Emerald Leger RN) insulin aspart (U-100) (NOVOLOG FLEXPEN 0935 (Med No t Given U-100 INSULIN) injection PEN 0-24 Units - Provider: 0-24 Units, Subcutaneous, BEFORE MEALS Ladi naqvi RN AND 2200, First dose on 05/29/21 at - Reason: Ord er 1700, Until Discontinued, -POC glucose parameters no t 181-220mg/dL at , , administer 4 met)1150 (Gi georgina - units insulin, at , * administer 0 Provider: Alaina rios. -POC glucose 221-260mg/dL at 07, MATT Daniels)1 740 (Med administer 8 units insulin, at Not Given - , * administer 4 units. -POC glucose Provider: Dar lizama 261-300mg/dL at , , administer 12 MATT Pickett - units insulin, at , * administer 8 Reason: Order units. -POC glucose 301-350mg/dL at , parameters n ot administer 16 units insulin, at met)2135 (Med Not , * administer 12 units. -POC Given - Provider: glucose 351-400mg/dL at , , Kaylie Henry RN - administer 20 units insulin, at , 03* Reason: Orde r administer 16 units. -POC glucose parameters not met ) >400mg/dL at , administer 24 units insulin, at , * administer 20 units. *only if ordered 5x's [...] Ines Pickett RN)1732 (Given - Provider: Ines Pickett, MATT) 0944 (Given - Provider: Emerald Leger, RN)1245 (Due - Provider: Emerald Leger, RN) insulin aspart (U-100) (NOVOLOG FLEXPEN 0935 (Given - U-100 INSULIN) injection PEN 8 Units Provider: Sherine del real 8 Units, Subcutaneous, THREE TIMES DAILY MATT Daniels) 1150 WITH MEALS, First dose (after last (Given - Provider : modification) on Mon05/28/21 at 1800, Ladi Catalan nt, Until Discontinued, Hold if NPO for RN)180 (Given - procedure, unable to eat, or [...] (Given - Provider: Kaylie Henry RN ) 06 (Given - Provider: Altagracia Antunez RN) levothyroxine (SYNTHROID) tablet 88 mcg 09 (Given - 88 mcg, Oral, DAILY, First dose on Mon Provider: Alaina christopher 05/24/21 at 0900, Until Discontinued, MATT Daniels) Give 1 hour before a meal. If patient is receiving tube feedings, hold tube feed 1hr before and 1hr after dose. 0839 (Med Not Given - Provider: Ines Pickett RN - Reason: Patient Refused) 0838 (Med Not Given - Provider: Emerald deras RN - Reason: Patient Refused) lidocaine (LIDODERM) 5 % topical patch 1 06 (Patch /Topical patch Removed - Provider: 1 patch, Topical, Administer over 12 Kaylie Ebertjoe, Hours, DAILY, First dose on 05/29/21 RN)0946 (Med [...] Ines Pickett RN)1531 (Given - Provider: Ines Pickett, MATT)2004 (Given - Provider: Ines Pickett, MATT) 0830 (Given - Provider: Emerald Leger, MATT) methocarbamoL (ROBAXIN) tablet 500 mg 0934 (Given - 500 mg, Oral, THREE TIMES DAILY, First Provider: Alaina christopher dose on 05/29/21 at 1130, Until MATT Daniels)1619 Discontinued (Given - Provider: Ines Pickett RN)2140 (Given - Provider: Kaylie Henry RN) 0839 (Med Not Given - Provider: Ines Pickett RN - Reason: Patient Refused) 0838 (Med Not Given - Provider: Emerald deras RN - Reason: Patient Refused) milk of magnesia (CONC) oral suspension 0934 (Med No t Given 10 mL - Provider: 10 mL, Oral, DAILY, First dose on Falguni Ladi jarquin RN 05/27/21 at 1115, Until Discontinued, 10 - Reason: Pa tient mL CONC = 30 mL MOM Refused) 2004 (Given - Provider: Ines Pickett RN) pantoprazole DR (PROTONIX) tablet 40 mg 2140 (Given - 40 mg, Oral, DAILY, First dose on Sun Provider: Blane andrews 05/23/21 at 2145, Until Discontinued, Do Elaine RN) not crush or chew tablet. 0836 (Given - Provider: Ines Pickett, MATT)2008 (Med Not Given - Provider: Ines Pickett RN - Reason: Patient Refused) 0829 (Given - Provider: Emerald Leger RN) polyethylene glycol 3350 (MIRALAX) 0934 (Med Not Giv en packet 17 g - Provider: 17 g (1 packet), Oral, TWICE DAILY, Ladi Daniels , RN First dose (after last modification) on - Reason: Serene hamlin Mon05/26/21 at 2100, Until Discontinued, Refused)220 9 (Med [...] atient at 2100, Until Discontinued, Hold for Refused)2210 ( Med loose stools Not Given - [...] EVERY 6 HOURS PRN , Starting on Mon05/23/21 at 1851, Until Mon06/01/21 at 1307, Nausea/Vomiting Injectable 0119 (Given - Provider: Kaylie Henry RN )0515 (Canceled Entry - Provider: Kaylie Henry RN)0537 (Given - Provider: Kaylie Henry RN)2004 (Given - Provider: Ines Pickett RN) 1041 (Given - Provider: Emerald Leger RN) oxyCODONE (ROXICODONE) tablet 5-10 mg 1156 (Med Not Given 5-10 mg, Oral, EVERY 4 HOURS PRN, - Provider: Starting on Mon05/30/21 at 0811, Until Ladi naqvi RN Mon06/01/21 at 1307, Pain PO - Reason: Patient Refused) documented in this encounter Orders First Ordered Date Medications Ordered That Might Not Have Count Last Ordered Date Been Administered bisacodyL (DULCOLAX) rectal suppository 1 06/01/2021 10 mg 05/23/2021 acetaminophen (TYLENOL) tablet 650 mg 2 05/30/2021 carvediloL (COREG) tablet 3.125 mg 1 ibuprofen (MOTRIN) tablet 600 mg 1 05/3005/24/2021 oxyCODONE (ROXICODONE) tablet 5-10 mg 3 05/30/2021 hydrOXYzine HCL (ATARAX) tablet 25 mg 1 05/29/2021 insulin aspart (U-100) (NOVOLOG FLEXPEN 1 05/29/2021 U-100 INSULIN) injection PEN 0-24 Units insulin glargine (LANTUS SOLOSTAR U-100 1 05/29/2021 INSULIN) injection PEN 20 Units lidocaine (LIDODERM) 5 % topical patch 1 1 05/29/2021 patch methocarbamoL (ROBAXIN) tablet 500 mg 1 05/29/2021 05/23/2021 gabapentin (NEURONTIN) capsule 100 mg 2 05/28/2021 gabapentin (NEURONTIN) capsule 200 mg 1 05/28/2021 insulin aspart (U-100) (NOVOLOG FLEXPEN 1 05/28/2021 U-100 INSULIN) injection PEN 8 Units insulin glargine (LANTUS SOLOSTAR U-100 1 05/28/2021 INSULIN) injection PEN 18 Units potassium phosphate (K-PHOS ORIGINAL) 1 05/28/2021 dispersable tablet 2 tablet spironolactone (ALDACTONE) tablet 25 mg 1 05/28/2021 insulin aspart (U-100) (NOVOLOG FLEXPEN 1 05/27/2021 U-100 INSULIN) injection PEN 6 Units insulin glargine (LANTUS SOLOSTAR U-100 1 05/27/2021 INSULIN) injection PEN 15 Units milk of magnesia (CONC) oral suspension 1 05/27/2021 10 mL ALPRAZolam (XANAX) tablet 1 mg 1 021 HYDROcodone/acetaminophen (NORCO) 5/325 1 05/26/2021 mg tablet 1-2 tablet insulin aspart (U-100) (NOVOLOG FLEXPEN 1 05/26/2021 U-100 INSULIN) injection PEN 4 Units insulin glargine (LANTUS SOLOSTAR U-100 1 05/26/2021 INSULIN) injection PEN 12 Units melatonin (MELATIN) tablet 3 mg 1 202005/23/2021 polyethylene glycol 3350 (MIRALAX) 2 packet 17 g senna/docusate (SENOKOT-S) tablet 2 1 tablet acetaminophen (TYLENOL EXTRA STRENGTH) 1 05/25/2021 tablet 1,000 mg ceFAZolin (ANCEF) IVP 2 g 1 05/25/2021 diphenhydrAMINE (BENADRYL) injection 25 1 05/25/2021 mg fentaNYL citrate PF (SUBLIMAZE) 1 2020 injection 25 mcg fentaNYL citrate PF (SUBLIMAZE) 1 2020 injection 50 mcg haloperidol lactate (HALDOL) injection 1 1 05/25/2021 mg insulin glargine (LANTUS SOLOSTAR U-100 1 05/25/2021 INSULIN) injection PEN 9 Units labetaloL (NORMODYNE) injection 5 mg 1 0 05/25/2021 promethazine (PHENERGAN) injection 6.25 1 05/25/2021 mg sodium chloride 0.9 % infusion 1 05/25 ALPRAZolam (XANAX) tablet 0.5 mg 1 05/24 aspirin EC tablet 81 mg 1 05/24/2021 cholecalciferol (VITAMIN D-3) tablet 1 0 05/24/2021 5,000 Units ezetimibe (ZETIA) tablet 10 mg 1 021 sertraline (ZOLOFT) tablet 100 mg 1 05/09 albuterol 0.083% (PROVENTIL) nebulizer 1 05/23/2021 solution 2.5 mg allopurinoL (ZYLOPRIM) tablet 300 mg 1 0 05/23/2021 carvediloL (COREG) tablet 6.25 mg 1 05/09 colchicine (COLCRYS) tablet 0.6 mg 1 enoxaparin (LOVENOX) syringe 30 mg 1 fentaNYL citrate PF (SUBLIMAZE) 1 2020 injection 25-50 mcg insulin aspart (U-100) (NOVOLOG FLEXPEN 1 05/23/2021 U-100 INSULIN) injection PEN 0-12 Units ipratropium/albuterol (COMBIVENT 1 05/23 RESPIMAT) inhaler 1 puff lactated ringers infusion 1 05/23/2021 levothyroxine (SYNTHROID) tablet 88 mcg 1 05/23/2021 ondansetron (ZOFRAN) injection 4-8 mg 1 05/23/[address] (PROTONIX) tablet 40 mg 1 05/23/2021 rosuvastatin (CRESTOR) tablet 40 mg 1 senna/docusate (SENOKOT-S) tablet 1 1 tablet traMADoL (ULTRAM) tablet 50 mg 1 021 First Ordered Date Lab Orders Without Results Count Last Ordere d Date 05/24/2021 PREPARE RBC'S 3 05/28/2021 First Ordered Date Procedures Count Last Ordered Date CONSULT IV THERAPY TEAM 2 05/28/2021 First Ordered Date Diet Count Last Ordered Date DISCHARGE DIET DIABETIC 1 06/01/2021 First Ordered Date Nursing Count Last Ordered Date DISCHARGE ACTIVITY WT BEARING 1 06/01/20 21 DISCHARGE CONTACT 1 06/01/2021 DISCHARGE SIGNS/SYMPTOMS 1 [...]
[2021-07-24] MEDS ORDERED: NS IV 1000 ML 1,000 ML IV STA (19:55)
[2021-07-24] MEDS ORDERED: KETOROLAC 30 MG/ML VIAL IVP STA (19:55)
--- NOTE | 2021-07-24 19:58 | ED General ---
General Stated Complaint: LEFT SIDE EAR/HIP/JAW PAIN Source of Information: Patient History of Present Illness Date Seen by Provider: Jul 24, 2021 Time Seen by Provider: 19:30 Initial Comments 71-year-old female presenting with complaints of sores and redness to the tip of her nose, left ear and jaw pain, left hip, femur, knee pain, nausea with vomiting yesterday and loose stools for few days. She denies having any fever or chills. She thought initially the sores and redness to the tip of her nose were related to being around her grandson that had qbml-nlyi-xvr-mouth disease. She started having popping sensation and pain in her left ear going into her face and jaw yesterday. This morning she had pain in her left hip and leg going down to her knee. She had recently had a femur fracture on the left side that was repaired surgically at [facility] by Dr. Wu. She had just been released to walking with full weightbearing within the last week or so. She states that she had been doing well without any pain or complications. Then today she was having the severe pain to the left side of her ear and face as well as the left hip and leg down to her knee. She thought that they were related. She denies any acute trauma or fall to be causing her pain. She has had no vomiting today but did have some nausea. She denies ill contacts other than the grandson with xufg-puea-uep-mouth disease last week. 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 Severity: Severe Modifying Factors: worse with Movement (Palpation of the left side of her face and ears was movement in that area. Movement or trying to bear weight with the left leg causes pain) Associated Systoms: No Chest Pain, No Cough, No Diaphoresis, No Fever/Chills, No Headaches, No Loss of Appetite; Nausea/Vomiting, Rash (Erythema and some sores to the tip of her nose and nares); No Seizure, No Shortness of Air, No Syncope, No Weakness Allergies and Home Medications Allergies Coded Allergies: prednisone (Verified Allergy, Intermediate, 01/08/19) PO MAKES HER HAVE NAUSEA, IM IS FINE lisinopril (Verified Adverse Reaction, Mild, 01/08/19) COUGH Patient Home Medication List Home Medication List Reviewed: Yes Cephalexin (Cephalexin) 500 Mg Tablet, 500 MG PO QID Prescribed by: ELINOR ROCHA on 10/04/19 1526 Cephalexin (Cephalexin) 500 Mg Capsule, 500 MG PO TID Prescribed by: RAPHAEL ACEVEDO on 07/24/212137 Levetiracetam (Roweepra) 500 Mg Tablet, 500 MG PO NEEDED Prescribed by: OMAYRA SIMON on 07/19/192030 Ondansetron (Ondansetron Odt) 4 Mg Tab.rapdis, 4 MG PO Q6H PRN for NAUSEA/VOMITING Prescribed by: OMAYRA SIMON on 07/19/192030 Review of Systems Review of Systems Constitutional: No chills, No fever EENTM: ear pain (Left side ear pain with the sensation of fluid and popping in her ear), dental problems, nose pain (Erythema and mild swelling to the tip of her nose and nares. There are some scabs in her nose.); No ear discharge, No blurred vision, No double vision, No nose congestion, No throat pain Respiratory: no symptoms reported Cardiovascular: no symptoms reported Gastrointestinal: see HPI, diarrhea, nausea, vomiting Genitourinary: no symptoms reported; No dysuria Musculoskeletal: see HPI, joint pain (Left hip down to her knee) Skin: change in color (Redness to the tip of her nose and nares) Psychiatric/Neurological: Denies Headache Past Wvurmbz-Hwioha-Gvmkiq Hx Seasonal Allergies Seasonal Allergies: No Past Medical History Surgeries: Yes (CABG, LT HIP FX) Gallbladder, Orthopedic (Left hip and femur) Respiratory: Yes Asthma Cardiac: Yes Coronary Artery Disease Neurological: Yes Seizure Disorder, Stroke Genitourinary: No Gastrointestinal: No Musculoskeletal: No Endocrine: Yes Diabetes, Non-Insulin dep HEENT: No Cancer: No Psychosocial: Yes Anxiety Integumentary: No Psoriasis Blood Disorders: No Physical Exam Vital Signs Vital Signs - First Documented 07/24/21 19:35 Temp 36.5 Pulse 76 Resp 20 B/P (MAP) 159/50 (86) Pulse Ox 96 O2 Delivery Room Air Capillary Refill : Height, Weight, BMI Height: 5'2.00" Weight: 202lbs. oz. 91.981550su; 36.00 BMI Method:Stated General Appearance: No Apparent Distress HEENT: PERRL/EOMI, TMs Normal (Bilateral TMs are clear without erythema or effusion), Pharynx Normal; No Pharyngeal Erythema, No Photophobia, No Tonsillar Exudate, No Tonsillar Enlargement; Other (She has some widespread dental disease. She has tenderness to palpation on the left side of her face, jaw, ear. There is no drainage from the ear. She has redness to the tip of her nose and nares with scabs present in the nares.) Neck: Full Range of Motion, Normal Inspection, Supple, Other (Patient with mild tenderness to the left side of her face and mandible) Respiratory: Chest Non Tender, Lungs Clear, Normal Breath Sounds, No Accessory Muscle Use, No Respiratory Distress Cardiovascular: Regular Rate, Rhythm, Normal Peripheral Pulses Gastrointestinal: Normal Bowel Sounds, No Pulsatile Mass, Non Tender, Soft Rectal: Deferred Extremity: Normal Capillary Refill, No Pedal Edema, Other (Tenderness to the left hip and femur.) Neurologic/Psychiatric: Alert, Oriented x3, construction 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 Norm as Tested Skin: Warm/Dry, Erythema (tip of nose and nares) Progress/Results/Core Measures Suspected Sepsis SIRS Temperature: Pulse: Respiratory Rate: Laboratory Tests 07/24/21 19:45: White Blood Count 17.9H Blood Pressure / Mean: Laboratory Tests 07/24/21 19:45: Creatinine 1.30, Platelet Count 243, Total Bilirubin 0.5 Results/Orders Lab Results Laboratory Tests Test 07/24/21 19:45 07/24/21 20:51 Range/Units White Blood Count 17.9 H 4.3-11.0 10^3/uL Red Blood Count 4.08 3.80-5.11 10^6/uL Hemoglobin 12.5 11.5-16.0 g/dL Hematocrit 39 35-52 % Mean Corpuscular Volume 95 80-99 fL Mean Corpuscular Hemoglobin 31 25-34 pg Mean Corpuscular Hemoglobin Concent 32 32-36 g/dL Red Cell Distribution Width 14.9 H 10.0-14.5 % Platelet Count 243 130-400 10^3/uL Mean Platelet Volume 10.5 9.0-12.2 fL Immature Granulocyte % (Auto) 0 % Neutrophils (%) (Auto) 32 L 42-75 % Lymphocytes (%) (Auto) 63 H 12-44 % Monocytes (%) (Auto) 3 0-12 % Eosinophils (%) (Auto) 1 0-10 % Basophils (%) (Auto) 0 0-10 % Neutrophils # (Auto) 5.7 1.8-7.8 X 10^3 Lymphocytes # (Auto) 11.3 H 1.0-4.0 X 10^3 Monocytes # (Auto) 0.6 0.0-1.0 X 10^3 Eosinophils # (Auto) 0.2 0.0-0.3 10^3/uL Basophils # (Auto) 0.1 0.0-0.1 10^3/uL Immature Granulocyte # (Auto) 0.1 0.0-0.1 10^3/uL Neutrophils % (Manual) 35 % Lymphocytes % (Manual) 61 % Monocytes % (Manual) 3 % Band Neutrophils 1 % Toxic Granulation 3+ Sodium Level 134 L 135-145 MMOL/L Potassium Level 4.6 3.6-5.0 MMOL/L Chloride Level 96 L 98-107 MMOL/L Carbon Dioxide Level 24 21-32 MMOL/L Anion Gap 14 5-14 MMOL/L Blood Urea Nitrogen 28 H 7-18 MG/DL Creatinine 1.30 0.60-1.30 MG/DL Estimat Glomerular Filtration Rate 40 BUN/Creatinine Ratio 22 Glucose Level 239 H 70-105 MG/DL Calcium Level 9.6 8.5-10.1 MG/DL Corrected Calcium 9.5 8.5-10.1 MG/DL Total Bilirubin 0.5 0.1-1.0 MG/DL Aspartate Amino Transf (AST/SGOT) 20 5-34 U/L Alanine Aminotransferase (ALT/SGPT) 12 0-55 U/L Alkaline Phosphatase 80 40-136 U/L C-Reactive Protein 2.27 H <0.50 MG/DL Total Protein 7.7 6.4-8.2 GM/DL Albumin 4.1 3.2-4.5 GM/DL Urine Color YELLOW Urine Clarity CLEAR Urine pH 6.0 5-9 Urine Specific [place] 1.010 L 1.016-1.022 Urine Protein NEGATIVE NEGATIVE Urine Glucose (UA) 3+ H NEGATIVE Urine Ketones NEGATIVE NEGATIVE Urine Nitrite NEGATIVE NEGATIVE Urine Bilirubin NEGATIVE NEGATIVE Urine Urobilinogen 0.2 < = 1.0 MG/DL Urine Leukocyte Esterase NEGATIVE NEGATIVE Urine RBC (Auto) NEGATIVE NEGATIVE Urine RBC 0-2 /HPF Urine WBC 5-10 H /HPF Urine Squamous Epithelial Cells 2-5 /HPF Urine Crystals NONE /LPF Urine Bacteria TRACE /HPF Urine Casts NONE /LPF Urine Mucus NEGATIVE /LPF Urine Culture Indicated YES My Orders Orders - RAPHAEL ACEVEDO MD Cbc With Automated Diff (07/24/21 19:55) Comprehensive Metabolic Panel (07/24/21 19:55) Ua Culture If Indicated (07/24/21 19:55) Ed Iv/Invasive Line Start (07/24/21 19:55) Crp Fs (07/24/21 19:55) Ct Head/Maxillofacial Wo (07/24/21 19:55) Ct Abdomen/Pelvis Wo (07/24/21 19:55) Ct Extremity Lower Left Wo (07/24/21 19:55) Ketorolac Injection (Toradol Injection) (07/24/21 19:55) Ns Iv 1000 Ml (Sodium Chloride 0.9%) (07/24/21 19:55) Manual Differential (07/24/21 19:45) Urine Culture (07/24/21 20:51) Rx-Mupirocin 2% Oint (Rx-Bactroban) (07/24/21 21:07) Ceftriaxone (Rocephin) (07/24/21 21:07) Vital Signs/I&O 07/24/21 07/24/21 19:35 21:41 Temp 36.5 36.5 Pulse 76 76 Resp 20 20 B/P (MAP) 159/50 (86) 159/50 Pulse Ox 96 96 O2 Delivery Room Air Room Air Capillary Refill : Progress Note #1: Progress Note Obtain labs to check for WBC count, electrolytes, dehydration. CT scan of head and face to evaluate pain to left side of head and ear as well as ensure there is no abscess to the nose/teeth area. CT abdomen and pelvis to look for obstruction, diverticulitis, abscess, colitis, pelvis fracture, hardware failure in hip/thigh. CT left knee to catch the rest of the femur to look for hardware failure, fracture, abscess. Give IVF for hydration, Toradol for inflammation and pain. Progress Note #2: Progress Note Lab is stable without acute significant abnormality to account for her symptoms. Her WBC is stable to improved from recent lab with her CLL. Her Hgb is stable at 12.5. Chemistry with elevated glucose but no acute significant abnormality otherwise. Chronic stable renal insufficiency with Cr 1.3. Elevated CRP for inflammation. UA with glucose and 5-10 WBC, no Nit/LE. It did flag for a culture. When updating pt she states she was sharing nasal spray bottle with grandson that has hand foot and mouth disease so that is why she thouhgt she had the same thing in her nose. Will cover with bactroban for possible staph infection in this area. For urine flagging for culture and having pain and popping in left ear and jaw will give Rocephin 1 gm IV here for possible infection and follow up with Cephalexin. Progress Note #3: Progress Note CT scans on my review do not show any acute abscess in face/head. Abdomen/pelvis without acute significant abnormality in belly to account for her symptoms. Hardware appears stable from my review. Radiologist did not see acute significant abnormality in head/face/abdomen/pelvis or knee/extremity Will discharge to home on keflex, bactroban. Check with clinic for continued concerns. Offer nsaid for leg pain. pt was offered Zofran script and NSAID sc ript but she felt that it was not needed. She plans to use OTC meds or for more severe pain use left over narcotic from recent femur surgery Diagnostic Imaging Diagonstic Imaging: CT Plain Films/CT/US/NM/MRI: facial bones, head Comments NAME: JUAN HENLEY [facility] REC#: [id number] PT STATUS: REG ER : 1950 PHYSICIAN: RAPHAEL ACEVEDO MD ADMIT DATE: 07/24/21/ER FS Draft Date of Exam:07/24/21 CT HEAD/MAXILLOFACIAL WO PROCEDURE: CT head and maxillofacial without contrast. TECHNIQUE: Multiple contiguous axial images were obtained through the head and facial bones without the use of intravenous contrast. Auto Exposure Controls were utilized during the CT exam to meet ALARA standards for radiation dose reduction. INDICATION: Left ear and jaw pain. Sores to the face. COMPARISON: 09/22/2020. FINDINGS: CT HEAD: The ventricles and cortical sulci are diffusely prominent, compatible with age-related volume loss. There are confluent areas of abnormal, low attenuation in the periventricular white matter. This is consistent with chronic small vessel ischemic changes. There is no midline shift or mass-effect. No acute intra-axial hemorrhage is seen. There are no abnormal areas of increased or decreased density to suggest acute hemorrhage or edema. No extra-axial masses or collections are present. The bony calvarium is intact. CT FACIAL BONES: There is no acute fracture or dislocation of the facial bones. Zygomatic arches are intact. Medial and lateral bilateral pterygoid plates are intact as well. There is no acute fracture or dislocation of the mandible. There is no fracture of the alveolar ridge of the maxilla. Paranasal sinuses show mild scattered mucosal thickening throughout. No abnormal air-fluid levels are seen. There is no acute fracture or dislocation of the paranasal sinuses. Nasal septum is essentially midline. Nasal bones are intact. Orbits are intact. Globes are symmetric. No unexpected radiopaque foreign bodies are seen. IMPRESSION: 1. No acute intracranial abnormality. No CT evidence of mass, acute infarct or intracranial hemorrhage. 2. Chronic small vessel ischemic change in the deep white matter. 3. No acute fracture or dislocation of the facial bones. Dictated on workstation # [id number] Dict: 07/24/212039 Trans: 07/24/212100 [facility] [id number] Interpreted by: NAN MCKAY MD Electronically signed by: Reviewed: Reviewed by Me Diagonstic Imaging: CT Plain Films/CT/US/NM/MRI: abdomen, pelvis Comments NAME: JUAN HENLEY [facility] REC#: [id number] PT STATUS: REG ER : 1950 PHYSICIAN: RAPHAEL ACEVEDO MD ADMIT DATE: 07/24/21/ER FS Draft Date of Exam:07/24/21 CT ABDOMEN/PELVIS WO PROCEDURE: CT abdomen and pelvis without contrast. TECHNIQUE: Multiple contiguous axial images were obtained through the abdomen and pelvis without the use of intravenous contrast. Auto Exposure Controls were utilized during the CT exam to meet ALARA standards for radiation dose reduction. INDICATION: Nausea and vomiting. Left hip and thigh pain. COMPARISON: 04/02/2021. FINDINGS: Included portions of the lung bases show 9 mm micronodule within the subpleural anterolateral margins of the right lower lobe. This is stable compared to 04/02/2021. CT ABDOMEN: There are a few scattered colonic diverticula of the sigmoid colon, but no CT evidence of acute diverticulitis. Normal appendix is identified. Appendicoliths are noted, but there is no CT evidence of acute appendicitis. Small bowel loops are nondistended. The kidneys, adrenal glands, spleen, pancreas and liver have an unremarkable noncontrast CT appearance. There is no loculated fluid collection, free fluid or free air within the abdomen. No abnormal mesenteric or retroperitoneal adenopathy is identified. Note is made of advanced diffuse calcified aortic and arterial atherosclerosis. Osseous structures show no acute abnormality. CT PELVIS: Urinary bladder is partially obscured secondary to metallic beam hardening artifact from left hip prosthesis. Urinary bladder is otherwise unopacified. No calculi are seen. There is no loculated fluid collection, free fluid or free air within the pelvis. No abnormal lymph nodes are seen. No acute osseous abnormality is identified. IMPRESSION: 1. No acute abnormality in the abdomen or pelvis is seen. 2. Micronodule within the included portions of the right lower lobe. Continued follow-up is advised to ensure ongoing stability. Dictated on workstation # [id number] Dict: 07/24/212043 Trans: 07/24/212109 [facility] [id number] Interpreted by: NAN MCKAY MD Electronically signed by: Reviewed: Reviewed by Me Diagonstic Imaging: CT Plain Films/CT/US/NM/MRI: leg, knee Comments NAME: JUAN HENLEY [facility] REC#: [id number] PT STATUS: REG ER : 1950 PHYSICIAN: RAPHAEL ACEVEDO MD ADMIT DATE: 07/24/21/ER FS Draft Date of Exam:07/24/21 CT EXTREMITY LOWER LEFT WO PROCEDURE: CT left lower extremity without contrast. TECHNIQUE: Multiple contiguous axial images were obtained through the left lower extremity without the use of intravenous contrast. Sagittal and coronal reformations were then performed. Auto Exposure Controls were utilized during the CT exam to meet ALARA standards for radiation dose reduction. INDICATION: History of recent femur fracture. Hip pain. COMPARISON: CT of the pelvis from same day. FINDINGS: Extensive postsurgical changes of the left femur are identified. Patient is status post previous total left hip and left knee replacements. Femoral and acetabular components of the left femur appear intact and appropriately positioned. Components also appear well aligned in respect to one another. Tibial and femoral components of the left knee also appear well positioned and well seated. There is no evidence of periprosthetic fracture of the knee components. No unexpected radiopaque foreign bodies are seen. Cement is noted surrounding the tibial stem component. Orthopedic sideplate and screws are also seen traversing the lateral margins of the proximal and mid femoral shaft. Side plate appears well opposed with underlying belkofski femur. Lindsay screws appear well-seated. There is a very subtle fracture line extending obliquely through the proximal femoral shaft. This corresponds to fracture seen on previous exam dated 05/23/2021. Fracture fragments are in anatomic alignment. Fracture line is only barely visible. Overlying soft tissue structures are unremarkable. There is calcified arterial sclerosis. No suspicious focal fluid collections are seen. IMPRESSION: 1. Subtle obliquely oriented fracture line is seen extending through the proximal femoral shaft. This corresponds to periprosthetic fracture seen on previous exam dated 05/23/2021. There has been interval ORIF of the left femoral shaft. Fracture fragments are now in satisfactory position. 2. Postsurgical changes of previous total left hip and knee replacements. These components appear well seated and well aligned as well. 3. No new acute osseous abnormality of the left femur is identified. No unexpected radiopaque foreign bodies are seen. Dictated on workstation # [id number] Dict: 07/24/21 2100 Trans: 07/24/21 214 [facility] [id number] Interpreted by: NAN MCKAY MD Electronically signed by: Reviewed: Reviewed by Me Departure Impression Primary Impression: Cellulitis of nasal tip Additional Impressions: Ear pain, left Nausea vomiting and diarrhea Left thigh pain Cystitis without hematuria Disposition: 01 HOME, SELF-CARE Condition: Stable Departure-Patient Inst. Decision time for Depature: 21:38 Referrals: [facility] [place] Primary Care Physician Patient Instructions: Nausea and Vomiting, Adult ED, Urinary Tract Infection, Adult ED, Diarrhea, Adult ED, Cellulitis (Skin Infection), Adult ED, Muscle and Bone Pain (DC) Add. Discharge Instructions: Take antibiotic to help treat for infection in nose tip and if there is infection around teeth/middle ear contributing to your pain. This will also treat for bacteria in urine. Use antibiotic ointment in nose tip to help treat infection. You would apply a thin layer to nose tip and inside the tip of your nose two times a day for next 10 days. Anti-inflammatory for hip and leg pain. So you could use Acetaminophen for pain or Ibuprofen or Naproxen for inflammation and pain If not improving or having worsening symptoms check back with clinic. Scripts Cephalexin (Cephalexin) 500 Mg Capsule 500 MG PO TID for cellulitis/uti for 7 Days, #21 CAP 0 Refills Prov: RAPHAEL ACEVEDO MD 07/24/21 RAPHAEL ACEVEDO MD Jul 24, 2021 19:58
[2021-07-24 19:59] LABS: HEMATOCRIT 39 % (35-52); HEMOGLOBIN 12.5 g/dL (11.5-16.0); MEAN CORPUSCULAR HEMOGLOBIN 31 pg (25-34); MEAN CORPUSCULAR VOLUME 95 fL (80-99); WHITE BLOOD COUNT 17.9 10^3/uL (4.3-11.0)
[2021-07-24 20:00] LABS: BASOPHILS # (AUTO) 0.1 10^3/uL (0.0-0.1); BASOPHILS % (AUTO) 0 % (0-10); EOSINOPHILS # (AUTO) 0.2 10^3/uL (0.0-0.3); EOSINOPHILS % (AUTO) 1 % (0-10); LYMPHOCYTES # (AUTO) 11.3 X 10^3 (1.0-4.0); LYMPHOCYTES % (AUTO) 63 % (12-44); MEAN CORPUSCULAR HGB CONC 32 g/dL (32-36); MEAN PLATELET VOLUME 10.5 fL (9.0-12.2); MONOCYTES # (AUTO) 0.6 X 10^3 (0.0-1.0); MONOCYTES % (AUTO) 3 % (0-12); NEUTROPHILS # (AUTO) 5.7 X 10^3 (1.8-7.8); NEUTROPHILS % (AUTO) 32 % (42-75); PLATELET COUNT 243 10^3/uL (130-400)
[2021-07-24 20:10] LABS: BAND NEUTROPHILS 1 %; LYMPHOCYTES % (MANUAL) 61 %; MONOCYTES % (MANUAL) 3 %; NEUTROPHILS % (MANUAL) 35 %; TOXIC GRANULATION/VACUOLAZATIO 3+
[2021-07-24 20:16] LABS: CALCIUM 9.6 MG/DL (8.5-10.1); CREATININE SERUM 1.3 MG/DL (0.60-1.30); POTASSIUM 4.6 MMOL/L (3.6-5.0)
[2021-07-24 20:17] LABS: ALBUMIN 4.1 GM/DL (3.2-4.5); BILIRUBIN,TOTAL 0.5 MG/DL (0.1-1.0); TOTAL PROTEIN 7.7 GM/DL (6.4-8.2)
[2021-07-24 20:58] LABS: BACTERIA,URINE TRACE /HPF; BILIRUBIN,URINE NEGATIVE (NEGATIVE); CLARITY,URINE CLEAR; COLOR,URINE YELLOW; GLUCOSE, URINE (UA) 3+ (NEGATIVE); KETONES,URINE NEGATIVE (NEGATIVE); LEUKOCYTE ESTERASE ,URINE NEGATIVE (NEGATIVE); NITRITE,URINE NEGATIVE (NEGATIVE); PROTEIN,URINE NEGATIVE (NEGATIVE); RBC,URINE 0-2 /HPF
--- NOTE | 2021-07-24 21:02 | Diagnostic Imaging Report ---
PROCEDURE: CT head and maxillofacial without contrast. TECHNIQUE: Multiple contiguous axial images were obtained through the head and facial bones without the use of intravenous contrast. Auto Exposure Controls were utilized during the CT exam to meet ALARA standards for radiation dose reduction. INDICATION: Left ear and jaw pain. Sores to the face. COMPARISON: 09/22/2020. FINDINGS: CT HEAD: The ventricles and cortical sulci are diffusely prominent, compatible with age-related volume loss. There are confluent areas of abnormal, low attenuation in the periventricular white matter. This is consistent with chronic small vessel ischemic changes. There is no midline shift or mass-effect. No acute intra-axial hemorrhage is seen. There are no abnormal areas of increased or decreased density to suggest acute hemorrhage or edema. No extra-axial masses or collections are present. The bony calvarium is intact. CT FACIAL BONES: There is no acute fracture or dislocation of the facial bones. Zygomatic arches are intact. Medial and lateral bilateral pterygoid plates are intact as well. There is no acute fracture or dislocation of the mandible. There is no fracture of the alveolar ridge of the maxilla. Paranasal sinuses show mild scattered mucosal thickening throughout. No abnormal air-fluid levels are seen. There is no acute fracture or dislocation of the paranasal sinuses. Nasal septum is essentially midline. Nasal bones are intact. Orbits are intact. Globes are symmetric. No unexpected radiopaque foreign bodies are seen. IMPRESSION: 1. No acute intracranial abnormality. No CT evidence of mass, acute infarct or intracranial hemorrhage. 2. Chronic small vessel ischemic change in the deep white matter. 3. No acute fracture or dislocation of the facial bones. Dictated by: Dictated on workstation # [id number]
[2021-07-24] MEDS ORDERED: cefTRIAXone 1,000 MG in WATER (STERILE) FOR INJECTION 10 ML IV STA (21:07)
[2021-07-24] MEDS ORDERED: RX-MUPIROCIN (BACTROBAN) 2% OINT 22 GM TUBE TOP STA (21:07)
--- NOTE | 2021-07-24 21:10 | Diagnostic Imaging Report ---
PROCEDURE: CT abdomen and pelvis without contrast. TECHNIQUE: Multiple contiguous axial images were obtained through the abdomen and pelvis without the use of intravenous contrast. Auto Exposure Controls were utilized during the CT exam to meet ALARA standards for radiation dose reduction. INDICATION: Nausea and vomiting. Left hip and thigh pain. COMPARISON: 04/02/2021. FINDINGS: Included portions of the lung bases show 9 mm micronodule within the subpleural anterolateral margins of the right lower lobe. This is stable compared to 04/02/2021. CT ABDOMEN: There are a few scattered colonic diverticula of the sigmoid colon, but no CT evidence of acute diverticulitis. Normal appendix is identified. Appendicoliths are noted, but there is no CT evidence of acute appendicitis. Small bowel loops are nondistended. The kidneys, adrenal glands, spleen, pancreas and liver have an unremarkable noncontrast CT appearance. There is no loculated fluid collection, free fluid or free air within the abdomen. No abnormal mesenteric or retroperitoneal adenopathy is identified. Note is made of advanced diffuse calcified aortic and arterial atherosclerosis. Osseous structures show no acute abnormality. CT PELVIS: Urinary bladder is partially obscured secondary to metallic beam hardening artifact from left hip prosthesis. Urinary bladder is otherwise unopacified. No calculi are seen. There is no loculated fluid collection, free fluid or free air within the pelvis. No abnormal lymph nodes are seen. No acute osseous abnormality is identified. IMPRESSION: 1. No acute abnormality in the abdomen or pelvis is seen. 2. Micronodule within the included portions of the right lower lobe. Continued follow-up is advised to ensure ongoing stability. Dictated by: Dictated on workstation # [id number]
[2021-07-24] MEDS ORDERED: CEPH500C PO (21:38)
[2021-07-24 21:41] VITALS: BP 159/50
--- NOTE | 2021-07-24 21:41 | Diagnostic Imaging Report ---
PROCEDURE: CT left lower extremity without contrast. TECHNIQUE: Multiple contiguous axial images were obtained through the left lower extremity without the use of intravenous contrast. Sagittal and coronal reformations were then performed. Auto Exposure Controls were utilized during the CT exam to meet ALARA standards for radiation dose reduction. INDICATION: History of recent femur fracture. Hip pain. COMPARISON: CT of the pelvis from same day. FINDINGS: Extensive postsurgical changes of the left femur are identified. Patient is status post previous total left hip and left knee replacements. Femoral and acetabular components of the left femur appear intact and appropriately positioned. Components also appear well aligned in respect to one another. Tibial and femoral components of the left knee also appear well positioned and well seated. There is no evidence of periprosthetic fracture of the knee components. No unexpected radiopaque foreign bodies are seen. Cement is noted surrounding the tibial stem component. Orthopedic sideplate and screws are also seen traversing the lateral margins of the proximal and mid femoral shaft. Side plate appears well opposed with underlying [place] femur. [place] screws appear well-seated. There is a very subtle fracture line extending obliquely through the proximal femoral shaft. This corresponds to fracture seen on previous exam dated 05/23/2021. Fracture fragments are in anatomic alignment. Fracture line is only barely visible. Overlying soft tissue structures are unremarkable. There is calcified arterial sclerosis. No suspicious focal fluid collections are seen. IMPRESSION: 1. Subtle obliquely oriented fracture line is seen extending through the proximal femoral shaft. This corresponds to periprosthetic fracture seen on previous exam dated 05/23/2021. There has been interval ORIF of the left femoral shaft. Fracture fragments are now in satisfactory position. 2. Postsurgical changes of previous total left hip and knee replacements. These components appear well seated and well aligned as well. 3. No new acute osseous abnormality of the left femur is identified. No unexpected radiopaque foreign bodies are seen. Dictated by: Dictated on workstation # [id number]
== END 2021-07-24 21:45 | disposition home or self-care (01) ==
LOC: EDUNIT# 19:27 → ER FS 19:30
DX: J34.0 Abscess, furuncle and carbuncle of nose (principal); H92.02 Otalgia, left ear; R11.2 Nausea with vomiting, unspecified; R19.7 Diarrhea, unspecified; M79.652 Pain in left thigh; N30.90 Cystitis, unspecified without hematuria; J45.909 Unspecified asthma, uncomplicated; G40.909 Epilepsy, unspecified, not intractable, without status epilepticus; Z86.73 Personal history of transient ischemic attack (TIA), and cerebral infarction without residual deficits; Z79.899 Other long term (current) drug therapy
CPT/HCPCS: 36415; 70450; 70486; 73700; 74176; 80053; 81000; 85007; 85027; 86141; 87088

== ENCOUNTER 2021-07-29 14:07 | Outpatient (RCR) | payer MEDICARE, OTHER ==
[2021-07-29 14:19] LABS: BASOPHILS # (AUTO) 0.1 10^3/uL (0.0-0.1); BASOPHILS % (AUTO) 1 % (0-10); EOSINOPHILS # (AUTO) 0.2 10^3/uL (0.0-0.3); EOSINOPHILS % (AUTO) 2 % (0-10); HEMATOCRIT 38 % (35-52); HEMOGLOBIN 11.8 g/dL (11.5-16.0); LYMPHOCYTES # (AUTO) 7.6 10^3/uL (1.0-4.0); LYMPHOCYTES % (AUTO) 53 % (12-44); MEAN CORPUSCULAR HEMOGLOBIN 31 pg (25-34); MEAN CORPUSCULAR HGB CONC 31 g/dL (32-36); MEAN CORPUSCULAR VOLUME 100 fL (80-99); MEAN PLATELET VOLUME 10.5 fL (9.0-12.2); MONOCYTES # (AUTO) 0.4 10^3/uL (0.0-1.0); MONOCYTES % (AUTO) 3 % (0-12); NEUTROPHILS % (AUTO) 42 % (42-75); PLATELET COUNT 226 10^3/uL (130-400); WHITE BLOOD COUNT 14.4 10^3/uL (4.3-11.0)
[2021-07-29 14:39] LABS: ALBUMIN 3.6 GM/DL (3.2-4.5); BILIRUBIN,TOTAL 0.4 MG/DL (0.1-1.0); CALCIUM 9.4 MG/DL (8.5-10.1); CREATININE SERUM 1.12 MG/DL (0.60-1.30); POTASSIUM 4.3 MMOL/L (3.6-5.0); TOTAL PROTEIN 6.8 GM/DL (6.4-8.2)
== END 2021-10-08 | disposition home or self-care (01) ==
LOC: ONC 14:07
PROVIDERS: ATTEND Internal Medicine Hematology & Oncology
DX: C91.10 Chronic lymphocytic leukemia of B-cell type not having achieved remission (principal); D64.9 Anemia, unspecified; D75.89 Other specified diseases of blood and blood-forming organs; R91.1 Solitary pulmonary nodule
CPT/HCPCS: 80053; 82607; 82728; 82746; 83540; 83550; 83615; 85025; G0463; 99213

== ENCOUNTER → 2021-07-29 | Outpatient (CLI) | payer MEDICARE, OTHER ==
[~2021-07-29] MED LIST changes: +CEPH500C PO
--- NOTE | 2021-07-29 15:32 | Diagnostic Imaging Report ---
CT CHEST WO TECHNIQUE: Multiple contiguous axial images were obtained through the chest without the use of intravenous contrast. All CT scans use one or more of the following dose optimizing techniques: automated exposure control, MA and/or KvP adjustment based on a patient size and exam type, or iterative reconstruction. INDICATION: Follow-up pulmonary nodule. Chronic lymphocytic leukemia. COMPARISON: 04/02/[address] chest of 10/31/2019. FINDINGS: Lungs and airway: No tracheal nodule. Scattered nodules within the right lung base are stable. The largest again measures 0.8 cm in the right lower lobe (image 58, series 3). No new pulmonary nodule. No pneumonia or edema. Pleura: No pleural effusion or pneumothorax. Heart and mediastinum: Numerous scattered subcentimeter axillary and mediastinal lymph nodes are all stable. No new or enlarging lymph nodes. Normal-caliber thoracic aorta. Stable changes of CABG. No pericardial effusion. Upper abdomen: Stomach is filled with fluid and food debris. No acute abnormality in the upper abdomen. Atherosclerotic calcifications are noted. Musculoskeletal: No concerning focal osseous lesions. IMPRESSION: 1. Scattered bilateral pulmonary nodules have one-year stability and are highly likely benign in nature. Consider follow-up with the noncontrast CT chest in 12 months or sooner if deemed warranted by clinical protocol for patient's chronic lymphocytic leukemia. 2. No enlarged lymph nodes in the chest. Dictated by: Dictated on workstation # [id number]
== END ==
LOC: RAD 13:51
PROVIDERS: ATTEND Internal Medicine Hematology & Oncology
DX: C91.10 Chronic lymphocytic leukemia of B-cell type not having achieved remission (principal); R91.8 Other nonspecific abnormal finding of lung field
CPT/HCPCS: 71250

== ENCOUNTER → 2021-08-20 | Outpatient (CLI) | payer MEDICARE, OTHER ==
--- NOTE | 2021-08-20 12:54 | Diagnostic Imaging Report ---
INDICATION: Right hand pain. COMPARISON: None. FINDINGS: Three views of the right hand demonstrate advanced degenerative changes, most pronounced in the DIPs of the third, fourth, and fifth digits. There are advanced degenerative changes involving the first carpal metacarpophalangeal joint. There is no acute fracture or dislocation. No bony erosion or foreign body. IMPRESSION: Advanced degenerative changes. Dictated by: Dictated on workstation # [id number]
--- NOTE | 2021-08-20 13:09 | Diagnostic Imaging Report ---
INDICATION: Right wrist pain. TIME OF EXAM: 12:20 PM Three views of the right wrist were obtained. Distal radius and ulna appear to be intact. There are triscaphe and 1st CMC joint degenerative changes with joint space narrowing and marginal spurring. No fractures are seen. Metacarpals are intact. There may be some chondrocalcinosis of the triangular fibrocartilage complex. IMPRESSION: Chronic changes. No acute bony abnormality is detected. Dictated by: Dictated on workstation # [id number]
== END ==
LOC: RAD FS 12:10
PROVIDERS: ATTEND Nurse Practitioner Family
DX: M18.11 Unilateral primary osteoarthritis of first carpometacarpal joint, right hand (principal)
CPT/HCPCS: 73110; 73130

== ENCOUNTER → 2021-10-28 | Outpatient (CLI) | payer MEDICARE, OTHER ==
[2021-10-28 15:06] LABS: BASOPHILS # (AUTO) 0.1 10^3/uL (0.0-0.1); BASOPHILS % (AUTO) 1 % (0-10); EOSINOPHILS # (AUTO) 0.3 10^3/uL (0.0-0.3); EOSINOPHILS % (AUTO) 2 % (0-10); HEMATOCRIT 40 % (35-52); HEMOGLOBIN 12.7 g/dL (11.5-16.0); LYMPHOCYTES % (AUTO) 58 % (12-44); MEAN CORPUSCULAR HEMOGLOBIN 31 pg (25-34); MEAN CORPUSCULAR HGB CONC 32 g/dL (32-36); MEAN CORPUSCULAR VOLUME 98 fL (80-99); MEAN PLATELET VOLUME 10.5 fL (9.0-12.2); MONOCYTES # (AUTO) 0.5 10^3/uL (0.0-1.0); MONOCYTES % (AUTO) 5 % (0-12); NEUTROPHILS # (AUTO) 3.5 10^3/uL (1.8-7.8); NEUTROPHILS % (AUTO) 34 % (42-75); PLATELET COUNT 141 10^3/uL (130-400); WHITE BLOOD COUNT 10.3 10^3/uL (4.3-11.0)
[2021-10-28 15:30] LABS: BILIRUBIN,TOTAL 0.7 MG/DL (0.1-1.0); CALCIUM 9.6 MG/DL (8.5-10.1); CREATININE SERUM 1.38 MG/DL (0.60-1.30); POTASSIUM 4.8 MMOL/L (3.6-5.0); TOTAL PROTEIN 7.2 GM/DL (6.4-8.2)
== END ==
LOC: ONC 14:56
PROVIDERS: ATTEND Internal Medicine Hematology & Oncology
DX: C91.10 Chronic lymphocytic leukemia of B-cell type not having achieved remission (principal); D64.9 Anemia, unspecified; D75.89 Other specified diseases of blood and blood-forming organs
CPT/HCPCS: 80053; 83615; 85025

== ENCOUNTER 2022-02-16 20:34 | Inpatient (IN) | payer MEDICARE, OTHER ==
[~2022-02-16] VITALS: Ht 157 cm; Wt 89.9 kg
[2022-02-16] MEDS ORDERED: ONDANSETRON 4 MG/2 ML (SDV) Z0FRAN IVP ONE (21:15)
[2022-02-16] MEDS ORDERED: LACTATED RINGERS 1,000 ML IV ONE (21:15)
[2022-02-16 21:23] LABS: BASOPHILS # (AUTO) 0.1 10^3/uL (0.0-0.1); BASOPHILS % (AUTO) 0 % (0-10); EOSINOPHILS # (AUTO) 0.1 10^3/uL (0.0-0.3); EOSINOPHILS % (AUTO) 0 % (0-10); HEMATOCRIT 39 % (35-52); HEMOGLOBIN 13.2 g/dL (11.5-16.0); LYMPHOCYTES # (AUTO) 21.8 10^3/uL (1.0-4.0); LYMPHOCYTES % (AUTO) 68 % (12-44); MEAN CORPUSCULAR HEMOGLOBIN 31 pg (25-34); MEAN CORPUSCULAR HGB CONC 34 g/dL (32-36); MEAN CORPUSCULAR VOLUME 93 fL (80-99); MEAN PLATELET VOLUME 10.3 fL (9.0-12.2); MONOCYTES # (AUTO) 1.1 10^3/uL (0.0-1.0); MONOCYTES % (AUTO) 3 % (0-12); NEUTROPHILS # (AUTO) 8.8 10^3/uL (1.8-7.8); NEUTROPHILS % (AUTO) 27 % (42-75); PLATELET COUNT 193 10^3/uL (130-400)
[2022-02-16 21:28] LABS: WHITE BLOOD COUNT 32.1 10^3/uL (4.3-11.0)
[2022-02-16 21:45] LABS: CREATININE SERUM 1.18 MG/DL (0.60-1.30); POTASSIUM 4.6 MMOL/L (3.6-5.0)
[2022-02-16 21:46] LABS: ALBUMIN 3.7 GM/DL (3.2-4.5); BILIRUBIN,TOTAL 1.2 MG/DL (0.1-1.0); CALCIUM 9.7 MG/DL (8.5-10.1); MAGNESIUM 2.1 MG/DL (1.6-2.4); TOTAL PROTEIN 8.2 GM/DL (6.4-8.2)
[2022-02-16 21:53] LABS: BAND NEUTROPHILS 8 %; LYMPHOCYTES % (MANUAL) 69 %; METAMYELOCYTES % 2 %; MONOCYTES % (MANUAL) 3 %; NEUTROPHILS % (MANUAL) 17 %; REACTIVE LYMPHOCYTES 1 %
[2022-02-16 21:54] LABS: PLATELET ESTIMATE NORMAL; RBC MORPH NORMAL
--- NOTE | 2022-02-16 21:58 | Diagnostic Imaging Report ---
CLINICAL INDICATION: Patient with cough x 2 years after discovery of nodule on the right side. EXAM: Portable chest x-ray upright view. COMPARISON: Chest x-ray dated 05/23/2021. FINDINGS: Lungs/pleura: There is interval development of mild right lung base atelectasis versus infiltrate. Remainder of the lungs are clear. There is no pneumothorax. There is no pleural effusion. Mediastinum: Unremarkable. Pulmonary vasculature: Unremarkable. Heart: Stable cardiomegaly. Stable postop change to the chest with sternotomy wires and mediastinal clips. Bones/extrathoracic soft tissue: There are degenerative spurs involving the spine. IMPRESSION: 1: There is interval development of mild right basilar atelectasis versus infiltrate. 2: Remainder of this exam shows no significant interval change. Dictated by: Dictated on workstation # [id number]
[2022-02-16 22:03] LABS: GLUCOSE, URINE (UA) 3+ (NEGATIVE); KETONES,URINE 3+ (NEGATIVE); LEUKOCYTE ESTERASE ,URINE NEGATIVE (NEGATIVE); NITRITE,URINE NEGATIVE (NEGATIVE); PROTEIN,URINE 1+ (NEGATIVE)
[2022-02-16 22:14] LABS: AMORPHOUS SEDIMENT,UR FEW AMOR URATES /LPF; BACTERIA,URINE TRACE /HPF; SQUAMOUS EPITHELIAL CELL,UR RARE /HPF; WBC,URINE RARE /HPF
[2022-02-16 22:15] LABS: HYALINE CASTS, URINE 0-2 /LPF; YEAST,URINE FEW /HPF
[2022-02-16 22:16] LABS: BILIRUBIN,URINE 2+ (NEGATIVE)
[2022-02-16 22:17] LABS: CLARITY,URINE SL CLOUDY; COLOR,URINE DARK YELLOW
[2022-02-16] MEDS ORDERED: PIPERACILLIN SODIUM/TAZOBACTAM 4.5 GM in NS (IVPB) 100 ML IV ONE (22:30)
--- NOTE | 2022-02-16 22:51 | ED General ---
General Chief Complaint: Abdominal/GI Problems Stated Complaint: NAUSEA Nursing Triage Note: Pt reports having gen. abd pain with n/v since last Monday. Pt reports she started taking Ozempic on Monday and began having symptoms Monday. Pt also reports cough. Pt seen at an Urgent Care on Monday and given Zofran and Albuterol inhaler but reports no relief. Pt intial O2 sat of 90% on RA and denies wearing oxygen; pt placed on 2L per NC of oxygen. Source of Information: Patient, Old Records Exam Limitations: No Limitations History of Present Illness Date Seen by Provider: February 16, 2022 Time Seen by Provider: 20:50 Initial Comments This is 71-year-old woman presents to the emergency room with complaints of progressive weakness, productive cough, and nausea. Her family also reports some mild confusion. She has been weaker today and having difficulty walking. She has spent most of the day on the couch. She has had a coarse productive c ough for the past 2 years since having COVID-19. She is noted to be hypoxic on arrival with oxygen saturation of 88% on room air. She does not use supplemental oxygen at home. Patient reports having problems with Ozempic. She has taken it the last 2 weekends and has had significant vomiting, abdominal discomfort, and bloating after each dose. She appears dry with a dry oropharynx on exam. Patient states she was also recently diagnosed with CLL. She has history of diabetes and has not been taking insulin recently. Allergies and Home Medications Allergies Coded Allergies: prednisone (Verified Allergy, Intermediate, 01/08/19) PO MAKES HER HAVE NAUSEA, IM IS FINE lisinopril (Verified Adverse Reaction, Mild, 01/08/19) COUGH Patient Home Medication List Home Medication List Reviewed: Yes Cephalexin (Cephalexin) 500 Mg Tablet, 500 MG PO QID Prescribed by: ELINOR ROCHA on 10/04/19 1526 Cephalexin (Cephalexin) 500 Mg Capsule, 500 MG PO TID Prescribed by: RAPHAEL ACEVEDO on 07/24/212137 Levetiracetam (Roweepra) 500 Mg Tablet, 500 MG PO NEEDED Prescribed by: OMAYRA SIMON on 07/19/192030 Ondansetron (Ondansetron Odt) 4 Mg Tab.rapdis, 4 MG PO Q6H PRN for NAUSEA/VOMITING Prescribed by: OMAYRA SIMON on 07/19/192030 Review of Systems Review of Systems Constitutional: see HPI, chills EENTM: see HPI Respiratory: see HPI Cardiovascular: no symptoms reported Gastrointestinal: see HPI Genitourinary: no symptoms reported : No Musculoskeletal: no symptoms reported Skin: no symptoms reported Psychiatric/Neurological: See HPI Hematologic/Lymphatic: See HPI Immunological/Allergic: see HPI Past Ikjvlbh-Qrubxz-Sizfuc Hx Patient Social History Tobacco Use?: No Use of E-Cig and/or Vaping dev: No Substance use?: No Alcohol Use?: No Pt feels they are or have been: No Immunizations Up To Date Influenza Vaccine Up-to-Date: Yes; Up-to-Date First/Initial COVID19 Vaccinat: DECEMBER 2020 Second COVID19 Vaccination Isra: JANUARY 2021 Seasonal Allergies Seasonal Allergies: No Past Medical History Surgeries: Yes (CABG, LT HIP FX) CABG, Gallbladder, Joint Replacement (Hip, knee), Orthopedic Respiratory: Yes Asthma Cardiac: Yes Coronary Artery Disease, Heart Attack Neurological: Yes Seizure Disorder, Stroke Genitourinary: No Gastrointestinal: No Musculoskeletal: No Endocrine: Yes Diabetes, Insulin dep HEENT: No Cancer: Yes Leukemia (CLL) Psychosocial: Yes Anxiety Integumentary: No Psoriasis Blood Disorders: No Physical Exam Vital Signs Vital Signs - First Documented 02/16/22 02/16/22 20:37 20:39 Temp 37.1 Pulse 79 Resp 18 B/P (MAP) 146/61 (89) Pulse Ox 90 O2 Delivery Room Air O2 Flow Rate 2.00 Capillary Refill : Less Than 3 Seconds Height, Weight, BMI Height: 5'2.00" Weight: 202lbs. oz. 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 Norm as Tested Skin: Normal Color, Warm/Dry Focused Exam Lactate Level 02/16/22 22:10: Lactic Acid Level 1.35 Lactic Acid Level Laboratory Tests Test 02/16/22 22:10 Lactic Acid Level 1.35 MMOL/L (0.50-2.00) Progress/Results/Core Measures Suspected Sepsis SIRS Temperature: Pulse: 79 Respiratory Rate: 18 Laboratory Tests 02/16/22 20:45: White Blood Count 32.1*H Blood Pressure 146 /61 Mean: 89 02/16/22 22:10: Lactic Acid Level 1.35 Laboratory Tests 02/16/22 20:45: Creatinine 1.18, Platelet Count 193, Total Bilirubin 1.2H Results/Orders Lab Results Laboratory Tests Test 02/16/22 20:45 02/16/22 21:10 02/16/22 21:49 02/16/22 22:10 Range/Units White Blood Count 32.1 *H 4.3-11.0 10^3/uL Red Blood Count 4.23 3.80-5.11 10^6/uL Hemoglobin 13.2 11.5-16.0 g/dL Hematocrit 39 35-52 % Mean Corpuscular Volume 93 80-99 fL Mean Corpuscular Hemoglobin 31 25-34 pg Mean Corpuscular Hemoglobin Concent 34 32-36 g/dL Red Cell Distribution Width 14.6 H 10.0-14.5 % Platelet Count 193 130-400 10^3/uL Mean Platelet Volume 10.3 9.0-12.2 fL Immature Granulocyte % (Auto) 1 % Neutrophils (%) (Auto) 27 L 42-75 % Lymphocytes (%) (Auto) 68 H 12-44 % Monocytes (%) (Auto) 3 0-12 % Eosinophils (%) (Auto) 0 0-10 % Basophils (%) (Auto) 0 0-10 % Neutrophils # (Auto) 8.8 H 1.8-7.8 10^3/uL Lymphocytes # (Auto) 21.8 H 1.0-4.0 10^3/uL Monocytes # (Auto) 1.1 H 0.0-1.0 10^3/uL Eosinophils # (Auto) 0.1 0.0-0.3 10^3/uL Basophils # (Auto) 0.1 0.0-0.1 10^3/uL Immature Granulocyte # (Auto) 0.4 H 0.0-0.1 10^3/uL Neutrophils % (Manual) 17 % Lymphocytes % (Manual) 69 % Monocytes % (Manual) 3 % Metamyelocytes % 2 % Band Neutrophils 8 % Reactive Lymphocytes 1 % Smudge Cells MOD Platelet Estimate NORMAL Blood Morphology Comment NORMAL Sodium Level 127 L 135-145 MMOL/L Potassium Level 4.6 3.6-5.0 MMOL/L Chloride Level 88 L 98-107 MMOL/L Carbon Dioxide Level 18 L 21-32 MMOL/L Anion Gap 21 H 5-14 MMOL/L Blood Urea Nitrogen 32 H 7-18 MG/DL Creatinine 1.18 0.60-1.30 MG/DL Estimat Glomerular Filtration Rate 49 BUN/Creatinine Ratio 27 Glucose Level 136 H 70-105 MG/DL Calcium Level 9.7 8.5-10.1 MG/DL Corrected Calcium 9.9 8.5-10.1 MG/DL Magnesium Level 2.1 1.6-2.4 MG/DL Total Bilirubin 1.2 H 0.1-1.0 MG/DL Aspartate Amino Transf (AST/SGOT) 32 5-34 U/L Alanine Aminotransferase (ALT/SGPT) 15 0-55 U/L Alkaline Phosphatase 78 40-136 U/L C-Reactive Protein 26.30 H <0.50 MG/DL Total Protein 8.2 6.4-8.2 GM/DL Albumin 3.7 3.2-4.5 GM/DL Influenza Type A Antigen NEGATIVE NEGATIVE Influenza Type B Antigen NEGATIVE NEGATIVE Urine Color DARK YELLOW Urine Clarity SL CLOUDY Urine pH 6.0 5-9 Urine Specific [place] 1.025 H 1.016-1.022 Urine Protein 1+ H NEGATIVE Urine Glucose (UA) 3+ H NEGATIVE Urine Ketones 3+ H NEGATIVE Urine Nitrite NEGATIVE NEGATIVE Urine Bilirubin 2+ H NEGATIVE Urine Urobilinogen 1.0 < = 1.0 MG/DL Urine Leukocyte Esterase NEGATIVE NEGATIVE Urine RBC (Auto) 1+ H NEGATIVE Urine RBC NONE /HPF Urine WBC RARE /HPF Urine Squamous Epithelial Cells RARE /HPF Urine Crystals PRESENT H /LPF Urine Amorphous Sediment FEW KAYLYNN URATES H /LPF Urine Bacteria TRACE /HPF Urine Casts PRESENT /LPF Urine Hyaline Casts 0-2 H /LPF Urine Mucus SMALL H /LPF Urine Yeast FEW H /HPF Urine Culture Indicated NO Lactic Acid Level 1.35 0.50-2.00 MMOL/L My Orders Orders - DEEPALI LANIER MD Cbc With Automated Diff (02/16/22 21:08) Comprehensive Metabolic Panel (02/16/22 21:08) Magnesium (02/16/22 21:08) Ua Culture If Indicated (02/16/22 21:08) Crp Fs (02/16/22 21:08) Ed Iv/Invasive Line Start (02/16/22 21:08) Lactated Ringers (Lr 1000 Ml Iv Solution (02/16/22 21:15) Ondansetron Injection (Zofran Injectio (02/16/22 21:15) Chest 1 View Ap/Pa Only (02/16/22 21:12) Influenza A & B Antigens (02/16/22 21:12) Manual Differential (02/16/22 20:45) Piperacillin Sodium/Tazobactam (Zosyn Vi (02/16/22 22:30) Blood Culture (02/16/22 22:27) Sputum Culture (02/16/22 22:27) Vital Signs Adult Sepsis Patie Q15M (02/16/22 22:27) O2 (02/16/22 22:27) Remove Rings In Anticipation O (02/16/22 22:27) Lactic Acid Analyzer (02/16/22 22:27) Covid 19 Inhouse Test (02/16/22 23:00) Medications Given in ED Current Medications Medications Dose Ordered Sig/Ileana Route Start Time Stop Time Status Last Admin Dose Admin Lactated Ringer's 1,000 ml @ 0 mls/hr Q0M ONCE IV 02/16/22 21:15 02/16/22 21:16 DC 02/16/22 21:15 999 MLS/HR Ondansetron HCl 4 mg ONCE ONCE IVP 02/16/22 21:15 02/16/22 21:16 DC 02/16/22 21:15 4 MG Piperacillin Sod/ Tazobactam Sod 4.5 gm/Sodium Chloride 100 ml @ 200 mls/hr ONCE ONCE IV 02/16/22 22:30 02/16/22 22:59 DC 02/16/22 22:36 200 MLS/HR Vital Signs/I&O 02/16/22 02/16/22 02/16/22 02/16/22 20:37 20:39 21:15 21:30 Temp 37.1 Pulse 79 88 85 Resp 18 17 18 B/P (MAP) 146/61 (89) 142/55 152/60 Pulse Ox 90 95 93 95 O2 Delivery Room Air Nasal Cannula Nasal Cannula Nasal Cannula O2 Flow Rate 2.00 2.00 2.00 02/16/22 02/16/22 02/16/22 21:51 22:30 23:15 Pulse 84 85 Resp 18 17 B/P (MAP) 150/51 155/52 Pulse Ox 96 95 93 O2 Delivery Nasal Cannula Nasal Cannula Nasal Cannula O2 Flow Rate 1.00 1.00 1.00 Capillary Refill : Less Than 3 Seconds Blood Pressure Mean: 89 Progress Note : Progress Note Patient was seen and interviewed shortly after arrival. She used her albuterol inhaler with a spacer which did help her breathing some. She was placed on nasal cannula at 1 L/min due to her hypoxia on room air. She was able to maintain oxygen saturations in the mid 90s with 1 L. Patient had a markedly elevated WBC which likely is secondary to CLL. CRP was also significantly elevated. Due to presence of right lower lobe parenchymal markings and hypoxia, pneumonia cannot be ruled out. Patient received Zosyn after blood cultures and lactic acid were obtained. She is presumed to have pneumonia. She is agreeable to admission as she is high risk with diabetes, asthma/COPD, age, and CLL. We discussed CODE STATUS. She would like a full code order but did would not want to be maintained for a prolonged period of time on life supportive care. Influenza swab was negative, but to the COVID-19 swab was pending at the time of admission. Diagnostic Imaging Diagonstic Imaging: Xray Plain Films/CT/US/NM/MRI: chest Comments Chest x-ray viewed by me and report reviewed. See report below: NAME: JUAN HENLEY [facility] REC#: [id number] PT STATUS: REG ER : 1950 PHYSICIAN: DEEPALI LANIER MD ADMIT DATE: 02/16/22/ER FS Draft Date of Exam:02/16/22 CHEST 1 VIEW AP/PA ONLY CLINICAL INDICATION: Patient with cough x 2 years after discovery of nodule on the right side. EXAM: Portable chest x-ray upright view. COMPARISON: Chest x-ray dated 05/23/2021. FINDINGS: Lungs/pleura: There is interval development of mild right lung base atelectasis versus infiltrate. Remainder of the lungs are clear. There is no pneumothorax. There is no pleural effusion. Mediastinum: Unremarkable. Pulmonary vasculature: Unremarkable. Heart: Stable cardiomegaly. Stable postop change to the chest with sternotomy wires and mediastinal clips. Bones/extrathoracic soft tissue: There are degenerative spurs involving the spine. IMPRESSION: 1: There is interval development of mild right basilar atelectasis versus infiltrate. 2: Remainder of this exam shows no significant interval change. Dictated on workstation # [id number] Dict: 02/16/222150 Trans: 02/16/222155 [facility] [id number] Interpreted by: VIC AHMADI MD Departure Communication (Admissions) Time/Spoke to Admitting Phy: 22:35 Dr. Marshall Impression Primary Impression: Right lower lobe pneumonia Qualified Codes: J18.9 - Pneumonia, unspecified organism Additional Impressions: Hypoxia Hypovolemia Hyponatremia Generalized weakness CLL (chronic lymphocytic leukemia) Disposition: 30 STILL A PATIENT Condition: Stable Admissions Decision to Admit Reason: Admit from ER (General) Decision to Admit/Date: February 16, 2022 Time/Decision to Admit Time: 22:35 Transfer Transfer Reason: Exceeds level of care Transfer Time: 23:25 Transfer Facility: [facility] Method of Transfer: EMS Departure-Patient Inst. Referrals: [facility] (PCP) Primary Care Physician DIANE CROWELL APRN (Family) Primary Care Physician DEEPALI LANIER MD February 16, 2022 22:50
[2022-02-17 00:15] VITALS: BP 151/68
[2022-02-17] MEDS: NS IV 1000 ML 1,000 ML IV SCH ×2 (00:55→08:32)
[2022-02-17] MEDS ORDERED: ONDANSETRON 4 MG/2 ML (SDV) Z0FRAN IV PRN (01:00)
[2022-02-17] MEDS ORDERED: GABAPENTIN 100 MG (NEURONTIN) CAP PO PRN (01:00)
[2022-02-17] MEDS: ALPRAZolam 1 MG (XANAX) TAB PO PRN (01:48)
[2022-02-17] MEDS ORDERED: RT-ALBUTEROL/IPRATROPIUM 3 ML (DUONEB) VIAL INH PRN (03:30)
[2022-02-17 04:24] VITALS: BP 156/72
[2022-02-17] MEDS: PIPERACILLIN SODIUM/TAZOBACTAM 4.5 GM in NS (IVPB) 100 ML IV SCH ×3 (04:55→21:54)
[2022-02-17 06:02] LABS: BASOPHILS # (AUTO) 0.1 10^3/uL (0.0-0.1); BASOPHILS % (AUTO) 0 % (0-10); EOSINOPHILS # (AUTO) 0.1 10^3/uL (0.0-0.3); EOSINOPHILS % (AUTO) 0 % (0-10); HEMATOCRIT 35 % (35-52); HEMOGLOBIN 11.5 g/dL (11.5-16.0); LYMPHOCYTES # (AUTO) 16.8 10^3/uL (1.0-4.0); LYMPHOCYTES % (AUTO) 64 % (12-44); MEAN CORPUSCULAR HEMOGLOBIN 31 pg (25-34); MEAN CORPUSCULAR HGB CONC 33 g/dL (32-36); MEAN CORPUSCULAR VOLUME 94 fL (80-99); MEAN PLATELET VOLUME 9.7 fL (9.0-12.2); MONOCYTES % (AUTO) 4 % (0-12); NEUTROPHILS % (AUTO) 31 % (42-75); PLATELET COUNT 161 10^3/uL (130-400); WHITE BLOOD COUNT 26.1 10^3/uL (4.3-11.0)
[2022-02-17] MEDS: inSUlin ASPART (NovoLOG) 1 UNIT/0.01 ML (CHARGE PER UNIT) SC SCH ×4 (06:09→21:24)
[2022-02-17] MEDS: LEVOTHYROXINE 88 MCG (LEVOTHORID) TAB PO SCH (06:09)
[2022-02-17 06:29] LABS: POTASSIUM 4.1 MMOL/L (3.6-5.0)
[2022-02-17 06:30] LABS: CALCIUM 8.9 MG/DL (8.5-10.1)
[2022-02-17 06:34] LABS: CREATININE SERUM 1.23 MG/DL (0.60-1.30)
[2022-02-17] MEDS: RT-ALBUTEROL/IPRATROPIUM 3 ML (DUONEB) VIAL INH SCH ×5 (06:35→22:37)
[2022-02-17 08:00] VITALS: BP 135/66
[2022-02-17 11:16] VITALS: BP 123/66
[2022-02-17] MEDS ORDERED: SERT-414 PO (14:52)
[2022-02-17] MEDS ORDERED: CHOL200074 PO (14:52)
[2022-02-17] MEDS ORDERED: EZET10TA49 PO (14:52)
[2022-02-17] MEDS ORDERED: FISH1CAP15 PO (14:52)
[2022-02-17] MEDS ORDERED: MULT-1136 PO (14:52)
[2022-02-17] MEDS ORDERED: LEVO88TA54 PO (14:52)
[2022-02-17] MEDS ORDERED: ALPR1TAB7 PO ×2 (14:52)
[2022-02-17] MEDS ORDERED: ROSU40TA23 PO (14:52)
[2022-02-17] MEDS ORDERED: GABA-486 PO (14:52)
[2022-02-17] MEDS ORDERED: MELO15TA39 PO (14:52)
[2022-02-17] MEDS ORDERED: SEMA0.25 SQ (14:52)
[2022-02-17] MEDS ORDERED: MAGN400T39 PO (14:52)
[2022-02-17] MEDS ORDERED: ALLO300T2 PO (14:52)
[2022-02-17] MEDS ORDERED: INSU100I10 SC (14:52)
[2022-02-17] MEDS ORDERED: OMEP40CA6 PO (14:52)
--- NOTE | 2022-02-17 15:47 | History & Physical ---
HPI History of Present Illness: 71 yo F with recent dx of CLL that presents with progressive weakness and increasing cough. Patient states that she has been feeling bad for the last week and a half. She presented to doctor last monday because of cough and was started on medications for cough and allergies. She has not been on antibiotics for this cough. States that she has had a dry cough since having covid 2 years ago. Denies any fevers but has had chills. She has been having some trouble with ambulation and has been using cane more often due to weakness. Denies any falls. States that she has been using her nebulizer more frequently the last week with some improvement. No home oxygen requirement. Source: patient Exam Limitations: no limitations Date seen by provider: February 17, 2022 Time Seen by Provider: 10:05 Attending Physician Issac Marshall MD PCP Center/[facility] [place] Consult Date of Admission February 17, 2022 at 00:10 Home Medications Home Medications Reviewed patient Home Medication Reconciliation performed by pharmacy medication reconciliations precision lens technician and/or nursing. Patients Allergies have been reviewed. Allergies Coded Allergies: prednisone (Verified Allergy, Intermediate, 01/08/19) PO MAKES HER HAVE NAUSEA, IM IS FINE lisinopril (Verified Adverse Reaction, Mild, 01/08/19) COUGH OPO-Rgpjxe-Tcnjds Hx Patient Social History Recent Hopitalizations: No Alcohol Use?: No Have you traveled recently?: No Immunizations Up To Date Influenza Vaccine Up-to-Date: Yes; Up-to-Date First/Initial COVID19 Vaccinat: Moderna Second COVID19 Vaccination Isra: Modern Third COVID19 Vaccination Date: Past Medical History COPD CLL IDDM Gout Family Medical History Significant Family History: No Pertinent Family Hx Review of Systems (CH[facility]) Constitutional: chills; No fever; malaise EENTM: no symptoms reported; No mouth pain, No nose congestion, No nose pain Respiratory: cough, dyspnea on exertion, short of breath Cardiovascular: no symptoms reported; No chest pain, No edema, No palpitations Gastrointestinal: No abdominal pain, No constipation, No diarrhea; loss of appetite; No nausea, No vomiting Genitourinary: no symptoms reported; No dysuria, No frequency, No hematuria : No Musculoskeletal: back pain (Right side/back pain with coughing) Skin: no symptoms reported; No lesions, No rash Psychiatric/Neurological: Weakness Reviewed Test Results Reviewed Test Results Lab Laboratory Tests Test 02/16/22 20:45 02/16/22 21:10 02/16/22 21:49 02/16/22 22:10 Range/Units White Blood Count 32.1 *H 4.3-11.0 10^3/uL Red Blood Count 4.23 3.80-5.11 10^6/uL Hemoglobin 13.2 11.5-16.0 g/dL Hematocrit 39 35-52 % Mean Corpuscular Volume 93 80-99 fL Mean Corpuscular Hemoglobin 31 25-34 pg Mean Corpuscular Hemoglobin Concent 34 32-36 g/dL Red Cell Distribution Width 14.6 H 10.0-14.5 % Platelet Count 193 130-400 10^3/uL Mean Platelet Volume 10.3 9.0-12.2 fL Immature Granulocyte % (Auto) 1 % Neutrophils (%) (Auto) 27 L 42-75 % Lymphocytes (%) (Auto) 68 H 12-44 % Monocytes (%) (Auto) 3 0-12 % Eosinophils (%) (Auto) 0 0-10 % Basophils (%) (Auto) 0 0-10 % Neutrophils # (Auto) 8.8 H 1.8-7.8 10^3/uL Lymphocytes # (Auto) 21.8 H 1.0-4.0 10^3/uL Monocytes # (Auto) 1.1 H 0.0-1.0 10^3/uL Eosinophils # (Auto) 0.1 0.0-0.3 10^3/uL Basophils # (Auto) 0.1 0.0-0.1 10^3/uL Immature Granulocyte # (Auto) 0.4 H 0.0-0.1 10^3/uL Neutrophils % (Manual) 17 % Lymphocytes % (Manual) 69 % Monocytes % (Manual) 3 % Metamyelocytes % 2 % Band Neutrophils 8 % Reactive Lymphocytes 1 % Smudge Cells MOD Platelet Estimate NORMAL Blood Morphology Comment NORMAL Sodium Level 127 L 135-145 MMOL/L Potassium Level 4.6 3.6-5.0 MMOL/L Chloride Level 88 L 98-107 MMOL/L Carbon Dioxide Level 18 L 21-32 MMOL/L Anion Gap 21 H 5-14 MMOL/L Blood Urea Nitrogen 32 H 7-18 MG/DL Creatinine 1.18 0.60-1.30 MG/DL Estimat Glomerular Filtration Rate 49 BUN/Creatinine Ratio 27 Glucose Level 136 H 70-105 MG/DL Calcium Level 9.7 8.5-10.1 MG/DL Corrected Calcium 9.9 8.5-10.1 MG/DL Magnesium Level 2.1 1.6-2.4 MG/DL Total Bilirubin 1.2 H 0.1-1.0 MG/DL Aspartate Amino Transf (AST/SGOT) 32 5-34 U/L Alanine Aminotransferase (ALT/SGPT) 15 0-55 U/L Alkaline Phosphatase 78 40-136 U/L C-Reactive Protein 26.30 H <0.50 MG/DL Total Protein 8.2 6.4-8.2 GM/DL Albumin 3.7 3.2-4.5 GM/DL Influenza Type A Antigen NEGATIVE NEGATIVE Influenza Type B Antigen NEGATIVE NEGATIVE SARS-CoV-2 RNA (RT-PCR) Not Detected Not Detecte Urine Color DARK YELLOW Urine Clarity SL CLOUDY Urine pH 6.0 5-9 Urine Specific [place] 1.025 H 1.016-1.022 Urine Protein 1+ H NEGATIVE Urine Glucose (UA) 3+ H NEGATIVE Urine Ketones 3+ H NEGATIVE Urine Nitrite NEGATIVE NEGATIVE Urine Bilirubin 2+ H NEGATIVE Urine Urobilinogen 1.0 < = 1.0 MG/DL Urine Leukocyte Esterase NEGATIVE NEGATIVE Urine RBC (Auto) 1+ H NEGATIVE Urine RBC NONE /HPF Urine WBC RARE /HPF Urine Squamous Epithelial Cells RARE /HPF Urine Crystals PRESENT H /LPF Urine Amorphous Sediment FEW KAYLYNN URATES H /LPF Urine Bacteria TRACE /HPF Urine Casts PRESENT /LPF Urine Hyaline Casts 0-2 H /LPF Urine Mucus SMALL H /LPF Urine Yeast FEW H /HPF Urine Culture Indicated NO Lactic Acid Level 1.35 0.50-2.00 MMOL/L Test 02/17/22 05:41 02/17/22 05:53 02/17/22 09:29 02/17/22 13:55 Range/Units Glucometer 118 H 113 H 185 H 70-110 MG/DL White Blood Count 26.1 H 4.3-11.0 10^3/uL Red Blood Count 3.68 L 3.80-5.11 10^6/uL Hemoglobin 11.5 11.5-16.0 g/dL Hematocrit 35 35-52 % Mean Corpuscular Volume 94 80-99 fL Mean Corpuscular Hemoglobin 31 25-34 pg Mean Corpuscular Hemoglobin Concent 33 32-36 g/dL Red Cell Distribution Width 14.5 10.0-14.5 % Platelet Count 161 130-400 10^3/uL Mean Platelet Volume 9.7 9.0-12.2 fL Immature Granulocyte % (Auto) 1 % Neutrophils (%) (Auto) 31 L 42-75 % Lymphocytes (%) (Auto) 64 H 12-44 % Monocytes (%) (Auto) 4 0-12 % Eosinophils (%) (Auto) 0 0-10 % Basophils (%) (Auto) 0 0-10 % Neutrophils # (Auto) 8.0 H 1.8-7.8 10^3/uL Lymphocytes # (Auto) 16.8 H 1.0-4.0 10^3/uL Monocytes # (Auto) 1.0 0.0-1.0 10^3/uL Eosinophils # (Auto) 0.1 0.0-0.3 10^3/uL Basophils # (Auto) 0.1 0.0-0.1 10^3/uL Immature Granulocyte # (Auto) 0.2 H 0.0-0.1 10^3/uL Sodium Level 128 L 135-145 MMOL/L Potassium Level 4.1 3.6-5.0 MMOL/L Chloride Level 94 L 98-107 MMOL/L Carbon Dioxide Level 19 L 21-32 MMOL/L Anion Gap 15 H 5-14 MMOL/L Blood Urea Nitrogen 27 H 7-18 MG/DL Creatinine 1.23 0.60-1.30 MG/DL Estimat Glomerular Filtration Rate 47 BUN/Creatinine Ratio 22 Glucose Level 112 H 70-105 MG/DL Calcium Level 8.9 8.5-10.1 MG/DL C-Reactive Protein High Sensitivity 24.76 H 0.00-0.50 MG/DL Physical Exam-([facility]) Physical Exam Vital Signs VS - Last 72 Hours, by Label 02/16/22 02/16/22 02/16/22 02/16/22 20:37 20:39 21:15 21:30 Temp 37.1 Pulse 79 88 85 Resp 18 17 18 B/P (MAP) 146/61 (89) 142/55 152/60 Pulse Ox 90 95 93 95 O2 Delivery Room Air Nasal Cannula Nasal Cannula Nasal Cannula O2 Flow Rate 2.00 2.00 2.00 02/16/22 02/16/22 02/16/22 02/17/22 21:51 22:30 23:15 00:15 Temp 36.9 Pulse 84 85 86 Resp 18 17 18 B/P (MAP) 150/51 155/52 151/68 (95) Pulse Ox 96 95 93 93 O2 Delivery Nasal Cannula Nasal Cannula Nasal Cannula Nasal Cannula O2 Flow Rate 1.00 1.00 1.00 2.00 02/17/22 02/17/22 02/17/22 02/17/22 00:30 04:24 06:35 08:00 Temp 36.6 37.4 Pulse 89 86 Resp 18 18 B/P (MAP) 156/72 (100) 135/66 (89) Pulse Ox 93 90 93 O2 Delivery Nasal Cannula Nasal Cannula Nasal Cannula Nasal Cannula O2 Flow Rate 2.00 2.00 3.00 2.00 02/17/22 02/17/22 02/17/22 02/17/22 08:43 10:19 11:16 14:38 Temp 37.3 Pulse 83 Resp 18 B/P (MAP) 123/66 (85) Pulse Ox 91 94 92 O2 Delivery Nasal Cannula Nasal Cannula Nasal Cannula Nasal Cannula O2 Flow Rate 2.00 3.00 2.00 3.00 Capillary Refill : Less Than 3 Seconds General Appearance: WD/WN, no apparent distress HEENT: PERRL/EOMI Neck: non-tender, full range of motion Respiratory: normal breath sounds, no respiratory distress, no accessory muscle use, wheezing, expiration Cardiovascular: normal peripheral pulses, regular rate, rhythm, systolic murmur Gastrointestinal: normal bowel sounds, non tender, soft Back: no CVA tenderness, no vertebral tenderness Extremities: normal range of motion, non-tender, normal inspection, no pedal edema, no calf tenderness, normal capillary refill Neurologic/Psychiatric: flight attendant inflight services II-XII nml as tested, no motor/sensory deficits, alert, normal mood/affect, oriented x 3 Skin: normal color, warm/dry Lymphatic: no adenopathy Assessment/Plan Assessment/Plan Admission Status: Inpatient Order (span 2 midnights) Reason for Inpatient Admission: cancer patient with PNA high risk of decompensation requiring close monitoring (1) Pneumonia Status: Acute Assessment & Plan: - Started on antibiotics, MAT protocol, titrate oxygen as tolerated Qualifiers: Qualified Codes: J18.9 - Pneumonia, unspecified organism (2) Hypoxia Status: Acute (3) CLL (chronic lymphocytic leukemia) Status: Acute Assessment & Plan: - Likely secondary cause of leukocytosis, will continue to monitor as we treat PNA (4) Generalized weakness Status: Acute Assessment & Plan: - PT (5) Insulin dependent diabetes mellitus Status: Chronic Assessment & Plan: - levemsudha, MEÑO, [place] AC/HS (6) DVT prophylaxis Assessment & Plan: - ISSAC Gagnon MD February 17, 2022 15:47
[2022-02-17 16:00] VITALS: BP 121/56
[2022-02-17] MEDS: ENOXAPARIN 40 MG/0.4 ML (LOVENOX) SYR SQ SCH (17:45)
[2022-02-17 19:29] VITALS: BP 128/61
[2022-02-18] VITALS (7 sets, daily range): BP systolic 118–137; BP diastolic 65–71
[2022-02-18] MEDS: NS IV 1000 ML 1,000 ML IV SCH (00:25)
[2022-02-18] MEDS: RT-ALBUTEROL/IPRATROPIUM 3 ML (DUONEB) VIAL INH SCH ×5 (02:28→22:39)
--- NOTE | 2022-02-18 05:50 | Progress Note - Hospitalist ---
Subjective HPI/CC On Admission Date Seen by Provider: February 18, 2022 Time Seen by Provider: 09:00 Subjective/Events-last exam Pt is doing a little better White count is still elevated at 23 Sodium level is 131 Will hep lock IV fluid Discharge planned for Monday Home oxygen evaluation today for discharge tomorrow Review of Systems General: Fatigue, Malaise Pulmonary: Dyspnea Focused Exam Lactate Level 02/16/22 22:10: Lactic Acid Level 1.35 Objective Exam Vital Signs Vital Signs Date Time Temp Pulse Resp B/P (MAP) Pulse Ox O2 Delivery O2 Flow Rate FiO2 02/18/22 18:45 90 Nasal Cannula 2.00 02/18/22 15:50 37.0 68 19 122/67 (85) Capillary Refill : Less Than 3 Seconds General Appearance: No Apparent Distress, WD/WN, Chronically ill Respiratory: Lungs Clear, Normal Breath Sounds, Decreased Breath Sounds Cardiovascular: Regular Rate, Rhythm Neurologic/Psychiatric: Alert, Oriented x3, No Motor/Sensory Deficits, Normal Mood/Affect Results/Procedures Lab Laboratory Tests 02/18/22 05:40 Patient resulted labs reviewed. Assessment/Plan Assessment and Plan Assess & Plan/Chief Complaint Assessment: Hypoxia Pneumonia Exacerbation of COPD CLL Gout Leukocytosis Plan: Oxygen wean Discharge plan for tomorrow ANDREA MARTINEZ DO February 18, 2022 05:50
[2022-02-18] MEDS: LEVOTHYROXINE 88 MCG (LEVOTHORID) TAB PO SCH (05:59)
[2022-02-18] MEDS: PIPERACILLIN SODIUM/TAZOBACTAM 4.5 GM in NS (IVPB) 100 ML IV SCH ×3 (05:59→21:24)
[2022-02-18 06:12] LABS: BASOPHILS # (AUTO) 0.1 10^3/uL (0.0-0.1); BASOPHILS % (AUTO) 0 % (0-10); EOSINOPHILS # (AUTO) 0.2 10^3/uL (0.0-0.3); EOSINOPHILS % (AUTO) 1 % (0-10); HEMATOCRIT 32 % (35-52); HEMOGLOBIN 10.6 g/dL (11.5-16.0); LYMPHOCYTES # (AUTO) 14.4 10^3/uL (1.0-4.0); LYMPHOCYTES % (AUTO) 61 % (12-44); MEAN CORPUSCULAR HEMOGLOBIN 31 pg (25-34); MEAN CORPUSCULAR HGB CONC 33 g/dL (32-36); MEAN CORPUSCULAR VOLUME 94 fL (80-99); MEAN PLATELET VOLUME 10.3 fL (9.0-12.2); MONOCYTES # (AUTO) 0.6 10^3/uL (0.0-1.0); MONOCYTES % (AUTO) 3 % (0-12); NEUTROPHILS # (AUTO) 8.3 10^3/uL (1.8-7.8); NEUTROPHILS % (AUTO) 35 % (42-75); PLATELET COUNT 164 10^3/uL (130-400); WHITE BLOOD COUNT 23.6 10^3/uL (4.3-11.0)
[2022-02-18 06:31] LABS: POTASSIUM 3.8 MMOL/L (3.6-5.0)
[2022-02-18 06:32] LABS: CALCIUM 8.6 MG/DL (8.5-10.1)
[2022-02-18 06:36] LABS: CREATININE SERUM 0.95 MG/DL (0.60-1.30)
[2022-02-18] MEDS: inSUlin ASPART (NovoLOG) 1 UNIT/0.01 ML (CHARGE PER UNIT) SC SCH ×4 (06:42→21:13)
[2022-02-18] MEDS: SERTRALINE 100 MG (ZOLOFT) TAB PO SCH (08:20)
[2022-02-18] MEDS: PANTOPRAZOLE 40 MG (PROTONIX) TAB PO SCH (08:20)
[2022-02-18] MEDS ORDERED: NON-FORMULARY MEDICATION 1 EA EA (Omeprazole 40 MG) PO SCH (09:00)
--- NOTE | 2022-02-18 12:01 | Physical Therapy Evaluation ---
PT Evaluation-General Medical Diagnosis Admission Date February 17, 2022 at 00:10 Medical Diagnosis: pneumonia/sepsis Onset Date: February 17, 2022 Therapy Diagnosis Therapy Diagnosis: generalized weakness/debility Height/Weight Height (Feet): 5 Height (Inches): 2.00 Weight (Pounds): 202 Precautions Precautions/Isolations: Standard Precautions Referral Physician: Rich Reason for Referral: Evaluation/Treatment Medical History Pertinent Medical History: CAD, CVA, DM, [place] Current History ER secondary to progressive weakness, cough, nausea Reviewed History: Yes Social History Home: Apartment Current Living Status: Alone Entry Into Home: Level Entry Prior Prior Level of Function SCALE: Activities may be completed with or without assistive devices. 4-Lssssmukpe-gzthywy completes the activity by him/herself with no assistance from a helper. 5-Set-up or Clean-up Assistance-helper sets up or cleans up; patient completes a ctivity. [place] assists only prior to or following the activity. 4-Supervision or Touching Assistance-helper provides verbal cues and/or touching/steadying and/or contact guard assistance as patient completes activity. Assistance may be provided throughout the activity or intermittently. 3-Partial/Moderate Assistance-helper does LESS THAN HALF the effort. [place] lifts, holds or supports trunk or limbs, but provides less than half the effort. 2-Substantial/Maximal Assistance-helper does MORE THAN HALF the effort. [place] lifts or holds trunk or limbs and provides more than half the effort. 5-Lyqtbesyv-ujtqcw does ALL the effort. Patient does none of the effort to complete the activity. Or, the assistance of 2 or more helpers is required for the patient to complete the activity. If activity was not attempted, code reason: 7-Patient Refused. 9-Not Applicable-not attempted and the patient did not perform the activity before the current illness, exacerbation or injury. 10-Not Attempted due to Environmental Limitations-(lack of equipment, weather restraints, etc.). 88-Not Attempted due to Medical Conditions or Safety Concerns. Bed Mobility: 6 Transfers (B,C,W/C): 6 Gait: 6 Indoor Mobility (Ambulation): Independent Prior Devices Use: Other-see list below Prior Device Use: cane PT Evaluation-Current Subjective Patient agrees to PT. Voices extreme fatigue and diminished endurance. Objective Patient Orientation: Normal For Age Attachments: Oxygen, IV ROM/Strength ROM Lower Extremities bilateral LE WFL Strength Lower Extremities right LE 4/5 knee flexion/extension and hip flexion left LE 3/5 knee flexion/extension and hip flexion Integumentary/Posture Bowel Incontinence: No Bladder Incontinence: No Posture slight trunk flexed posture Neuromuscular (Tone, Coordination, Reflexes) grossly intact Sensory Vision: Wears Glasses Hearing: Functional Transfers Lying to Sitting/Side of Bed(Q: 4 Sit to Stand (QC): 4 Chair/Ovk-li-Uaonl Xfer(QC): 4 CGA for safety Gait Does the Patient Walk?: Yes Mode of Locomotion: Walk Anticipated Mode of Locomotion: Walk Walk 10 feet (QC): 4 Walk 50 ft with 2 Turns(QC): 4 Walk 150 ft (QC): 4 Distance: 150' Gait Assistive Device: FWW Comments/Gait Description slow, steady gait sequence Balance Sitting Static: Normal Sitting Dynamic: Normal Standing Static: Fair Standing Dynamic: Fair Assessment/Needs Patient fatigues with minimal activity and displays diminished functional endurance with activity. Rehab Potential: Fair PT Outreach Worker Goals Senior Care Goals PT Senior Care Goals Time Frame: March 05, 2022 Roll Left & Right (QC): 6 Sit to Lying (QC): 6 Lying-Sitting on Side/Bed(QC): 6 Sit to Stand (QC): 6 Chair/Czj-yb-Tbzif Xfer(QC): 6 Toilet Transfer (QC): 6 Walk 10 feet (QC): 6 Walk 50ft with 2 Turns (QC): 6 Walk 150 ft (QC): 6 PT Plan Problem List Problem List: Activity Tolerance, Functional Strength, Gait Treatment/Plan Treatment Plan: Continue Plan of Care Treatment Plan: Bed Mobility, Education, Functional Activity Dominic, Functional Strength, Gait, Safety, Therapeutic Exercise, Transfers Treatment Duration: March 05, 2022 Frequency: 6 times per week Estimated Hrs Per Day: .25 hour per day Patient and/or Family Agrees t: Yes Time/GCodes Time In: 1135 Time Out: 1145 Total Billed Treatment Time: 10 Total Billed Treatment 1 visit EVModC 10 min CEE WATERS PT February 18, 2022 12:01
--- NOTE | 2022-02-18 12:08 | Occupational Therapy Eval ---
OT Evaluation-General/PLF Medical Diagnosis Admission Date February 17, 2022 at 00:10 Medical Diagnosis: pneumonia/sepsis Onset Date: February 17, 2022 Therapy Diagnosis Therapy Diagnosis: decreased ADL status, weakness Height/Weight Height (Feet): 5 Height (Inches): 2.00 Weight (Pounds): 202 Precautions Precautions/Isolations: Standard Precautions Referral Physician: Rich Referral Reason: Evaluation/Treatment Medical History Pertinent Medical History: CAD, CVA, DM, [place] Additional Medical History COPD, CLL, DM, gout Current History ED with progressive weakness and cough Social History Home: Apartment Current Living Status: Alone Entry Into Home: Level Entry ADL-Prior Level of Function SCALE: Activities may be completed with or without assistive devices. 1-Slrsamavlg-ansfikl completes the activity by him/herself with no assistance from a helper. 5-Set-up or Clean-up Assistance-helper sets up or cleans up; patient completes activity. [place] assists only prior to or following the activity. 4-Supervision or Touching Assistance-helper provides verbal cues and/or touching/steadying and/or contact guard assistance as patient completes activity. Assistance may be provided throughout the activity or intermittently. 3-Partial/Moderate Assistance-helper does LESS THAN HALF the effort. [place] lifts, holds or supports trunk or limbs, but provides less than half the effort. 2-Substantial/Maximal Assistance-helper does MORE THAN HALF the effort. [place] lifts or holds trunk or limbs and provides more than half the effort. 6-Nismoegyx-mxgsol does ALL the effort. Patient does none of the effort to complete the activity. Or, the assistance of 2 or more helpers is required for the patient to complete the activity. If activity was not attempted, code reason: 7-Patient Refused. 9-Not Applicable-not attempted and the patient did not perform the activity before the current illness, exacerbation or injury. 10-Not Attempted due to Environmental Limitations-(lack of equipment, weather restraints, etc.). 88-Not Attempted due to Medical Conditions or Safety Concerns. ADL PLOF Comments Pt reports IND with ADLs and functional mobility using cane. Self Care: Independent Functional Cognition: Independent DME/Equipment: Bath Chair, Shower OT Current Status Subjective Pt in recliner, agreeable to OT Tx. Pt reports no concerns with ADL function, but feels weak and less energy. Mental Status/Objective Patient Orientation: Listless Attachments: Oxygen Current Upper Extremity ROM WFL, BUE shoulder flexion to approx 140 degrees Upper Extremity Strength grossly 3/5 ADL-Treatment Eating (QC): 6 (IND per pt report.) Oral Hygiene (QC): 5 (per clinical judgment.) Toileting Hygiene (QC): 4 (per nursing report) Other Treatments Pt in recliner agreeable to OT Tx. Pt declined ADLs at this time. OT provided education on energy conservation techniques. Pt completed x10 reps each of the following exercises in order to increase BUE strength and activity tolerance: shoulder flexion, elbow flexion/extension and finger flexion/extension. Pt instructed to increase reps as tolerated and complete throughout the day as able, she verbalized understanding. Post tx, pt in recliner, call light in reach and all needs me.t Education OT Patient Education: Correct positioning, Energy conservation, Modified ADL techniques, Progress toward Goal/Update tx plan, Purpose of tx/functional activities Teaching Recipient: Patient Teaching Methods: Discussion Response to Teaching: Verbalize Understanding OT Fdc Goals Director Of Guidance Goals Time Frame: February 25, 2022 Eating (QC): 6 Oral Hygiene (QC): 6 Toileting Hygiene (QC): 6 Shower/Bathe Self (QC): 6 Upper Body Dressing (QC): 6 Lower Body Dressing (QC): 6 On/Off Footwear (QC): 6 Additional Goals: 1-Demonstrate ADL Tasks, 2-Verbalize Understanding, 3- ImproveStrength/Dominic 1=Demonstrate adherence to instructed precautions during ADL tasks. 2=Patient will verbalize/demonstrate understanding of assistive devices/modifications for ADL. 3=Patient will improve strength/tolerance for activity to enable patient to perform ADL's. OT Education/Plan Problem List/Assessment Assessment: Decreased Activ Tolerance, Decreased UE Strength, Impaired Funct Ba santino, Impaired I ADL's, Impaired Self-Care Skills Discharge Recommendations Plan/Recommendations: Continue POC Treatment Plan/Plan of Care Patient would benefit from OT for education, treatment and training to promote independence in ADL's, mobility, safety and/or upper extremity function for ADL's. Plan of Care: ADL Retraining, Functional Mobility, UE Funct Exercise/Act Treatment Duration: February 25, 2022 Frequency: 3 times per week (3-5 times per week) Estimated Hrs Per Day: .25 hour per day Agreement: Yes Rehab Potential: Fair Time/GCodes Start Time: 11:45 Stop Time: 12:00 Total Time Billed (hr/min): 15 Billed Treatment Time 1, IMTIAZ NOVAK OT February 18, 2022 12:08
[2022-02-18] MEDS: ENOXAPARIN 40 MG/0.4 ML (LOVENOX) SYR SQ SCH (16:13)
[2022-02-18] MEDS ORDERED: ACETAMINOPHEN 500 MG TAB (TYLENOL) ONE (18:16)
[2022-02-18] MEDS: ACETAMINOPHEN 500 MG TAB (TYLENOL) PO PRN (18:17)
--- NOTE | 2022-02-18 20:30 | Physician Query Clarification ---
Physician Query-General Query to Physician: The medical record reflects the following clinical evidence: Clinical Indicators: Admission VS/LABS: HR 79, RR 18, BP 146/61, SpO2 90% sat on room air put on O2 at 2 L O2 sats 93% T 37.1 decreased to 35.9, WBC 32.1, lactic acid 1.35, Bands 8, Risk Factor(s): CLL, Advanced age, pneumonia Treatment: ER: Lactated Ringer's 1 L, , Zosyn IV 1. Sepsis, unspecified organism, present on admission 2. Other explanation of clinical findings 3. Unable to determine (no explanation for clinical findings) Please clarify and document your clinical opinion in the progress notes and discharge summary including the definitive and/or presumptive diagnosis, (suspected or probable), related to the above clinical findings. Please include clinical findings supporting your diagnosis. Nallely Link MSN, RN Clinical Route Service Manager [phone] [email or web address] PHYSICIAN RESPONSE: Based on the clinical findings in the record, please respond to the query above on this document as an addendum. Physician Response: Physician Response sepsis If you have questions please contact: Government Property Inspector: Ext: Thank you for your time and cooperation. Clinical Route Service Manager/Government Property Inspector This is a permanent part of the medical record NALLELY LINK February 18, 2022 20:30 ANDREA MARTINEZ DO February 19, 2022 03:28
[2022-02-19] MEDS: ALPRAZolam 1 MG (XANAX) TAB PO PRN (01:42)
[2022-02-19] MEDS: ACETAMINOPHEN 500 MG TAB (TYLENOL) PO PRN (01:50)
[2022-02-19] MEDS: RT-ALBUTEROL/IPRATROPIUM 3 ML (DUONEB) VIAL INH SCH ×3 (03:19→10:00)
[2022-02-19 04:05] VITALS: BP 135/66
[2022-02-19] MEDS: inSUlin ASPART (NovoLOG) 1 UNIT/0.01 ML (CHARGE PER UNIT) SC SCH ×2 (05:13→10:00)
[2022-02-19] MEDS ORDERED: CEFD300C3 PO (05:49)
[2022-02-19] MEDS ORDERED: CARV6.252 PO (05:49)
--- NOTE | 2022-02-19 05:50 | Discharge Summary ---
Discharge Summary Hospital Course Was the Problem List Reviewed?: Yes Problems/Dx: (1) Pneumonia Status: Acute Qualifiers: Qualified Codes: J18.9 - Pneumonia, unspecified organism (2) CLL (chronic lymphocytic leukemia) (3) Hypoxia Status: Acute (4) Hyponatremia Status: Acute (5) Generalized weakness Status: Acute Hospital Course Date of Admission: February 17, 2022 at 00:10 Admission Diagnosis : Family Physician/Provider: Guillermina Davis Aprn Date of Discharge: 02/19/22 Discharge Diagnosis: PNA, Hypoxia, O2 supplemental oxygen, CLL Hospital Course: Pt had an uneventful Hospital Course for 3 days after she was admitted for Pneumonia with Sepsis. She was placed on empiric IV antibiotics and IV fluids which were heplocked after she stabilized. Lungs remained course but overall, she did well. Leukocytosis was trending down and O2 2L was ordered for upon exertion. Antibiotic and changes of antibiotic were sent to [facility]. Labs and Pending Lab Test: Laboratory Tests 02/18/22 09:29: Glucometer 88 02/18/22 14:30: Glucometer 230H 02/18/22 19:28: Glucometer 167H 02/19/22 05:01: Glucometer 95 Microbiology 02/16/22 Blood Culture - Preliminary, Resulted No growth Home Meds Active Reported Magnesium (Magnesium Oxide) 400 Mg Magnesium Tablet 400 Mg PO DAILY Vitamin D3 (Cholecalciferol (Vitamin D3)) 50 Mcg (2000 Unit) Capsule 50 Mcg PO BID Fish Oil 1,200 mg Fish Oil (Fish Oil/Dha/Epa) 1,200 Mg-144 Mg-216 Mg Capsule 1 Each PO BID Multivitamin 1 Each Tablet 1 Each PO DAILY Ozempic (Semaglutide) 0.25 Mg/0.2 Ml Pen.injctr 0.5 Mg SQ FRI Levothyroxine Sodium 88 Mcg Tablet 88 Mcg PO DAILY Allopurinol 300 Mg Tablet 300 Mg PO DAILY Lantus Solostar (Insulin Glargine,Hum.rec.anlog) 100 Unit/Ml (3 Ml) Insuln.pen 12 Units SC DAILY Meloxicam 15 Mg Tablet 15 Mg PO DAILY Gabapentin 100 Mg Capsule 100 Mg PO TID Rosuvastatin Calcium 40 Mg Tablet 40 Mg PO DAILY Ezetimibe 10 Mg Tablet 10 Mg PO DAILY Sertraline HCl 100 Mg Tablet 100 Mg PO DAILY Omeprazole 40 Mg Capsule.dr 40 Mg PO DAILY Alprazolam 1 Mg Tablet 1 Mg PO HS Alprazolam 1 Mg Tablet 1 Mg PO DAILY PRN Assessment/Pt Instructions PCP 1 week Discharge Planning: <30 minutes discharge planning Discharge Instructions Discharge Diet: No Restrictions Activity as Tolerated: Yes Discharge Physical Examination Vital Signs Vital Signs Date Time Temp Pulse Resp B/P (MAP) Pulse Ox O2 Delivery O2 Flow Rate FiO2 02/19/22 04:05 36.0 69 18 135/66 (89) 94 Nasal Cannula 2.00 General Appearance: No Apparent Distress, WD/WN, Chronically ill Respiratory: Normal Breath Sounds, No Accessory Muscle Use, No Respiratory Distress, Decreased Breath Sounds Cardiovascular: Regular Rate, Rhythm Neurologic/Psychiatric: Alert, Oriented x3, No Motor/Sensory Deficits, Normal Mood/Affect Allergies: Coded Allergies: prednisone (Verified Allergy, Intermediate, 01/08/19) PO MAKES HER HAVE NAUSEA, IM IS FINE lisinopril (Verified Adverse Reaction, Mild, 01/08/19) COUGH Discharge Summary Date of Admission February 17, 2022 at 00:10 Date of Discharge Discharge Date: February 19, 2022 Discharge Diagnosis Assessment: Hypoxia Pneumonia Exacerbation of COPD CLL Gout Leukocytosis Plan: Oxygen wean Discharge plan for tomorrow ANDREA MARTINEZ DO February 19, 2022 05:50
[2022-02-19] MEDS: LEVOTHYROXINE 88 MCG (LEVOTHORID) TAB PO SCH (06:03)
[2022-02-19] MEDS: PIPERACILLIN SODIUM/TAZOBACTAM 4.5 GM in NS (IVPB) 100 ML IV SCH (06:03)
[2022-02-19 06:41] LABS: BASOPHILS # (AUTO) 0.1 10^3/uL (0.0-0.1); BASOPHILS % (AUTO) 0 % (0-10); EOSINOPHILS # (AUTO) 0.3 10^3/uL (0.0-0.3); EOSINOPHILS % (AUTO) 1 % (0-10); HEMATOCRIT 31 % (35-52); HEMOGLOBIN 10.4 g/dL (11.5-16.0); LYMPHOCYTES # (AUTO) 16.7 10^3/uL (1.0-4.0); LYMPHOCYTES % (AUTO) 64 % (12-44); MEAN CORPUSCULAR HEMOGLOBIN 32 pg (25-34); MEAN CORPUSCULAR HGB CONC 34 g/dL (32-36); MEAN CORPUSCULAR VOLUME 94 fL (80-99); MONOCYTES # (AUTO) 0.4 10^3/uL (0.0-1.0); MONOCYTES % (AUTO) 2 % (0-12); NEUTROPHILS # (AUTO) 8.3 10^3/uL (1.8-7.8); NEUTROPHILS % (AUTO) 32 % (42-75); PLATELET COUNT 192 10^3/uL (130-400)
[2022-02-19 06:52] LABS: ALBUMIN 2.8 GM/DL (3.2-4.5); POTASSIUM 3.4 MMOL/L (3.6-5.0)
[2022-02-19 06:53] LABS: CALCIUM 8.7 MG/DL (8.5-10.1)
[2022-02-19 06:54] LABS: TOTAL PROTEIN 5.9 GM/DL (6.4-8.2)
[2022-02-19 06:56] LABS: BILIRUBIN,TOTAL 1.6 MG/DL (0.1-1.0)
[2022-02-19 06:58] LABS: CREATININE SERUM 0.9 MG/DL (0.60-1.30)
[2022-02-19 07:23] VITALS: BP 148/63
[2022-02-19 07:41] LABS: ATYPICAL LYMPHOCYTES 38 %; BAND NEUTROPHILS 1 %; EOSINOPHILS % (MANUAL) 2 %; LYMPHOCYTES % (MANUAL) 30 %; MONOCYTES % (MANUAL) 1 %; NEUTROPHILS % (MANUAL) 28 %; RBC MORPH NORMAL
[2022-02-19] MEDS: PANTOPRAZOLE 40 MG (PROTONIX) TAB PO SCH (09:45)
[2022-02-19] MEDS: SERTRALINE 100 MG (ZOLOFT) TAB PO SCH (09:45)
[2022-02-19 11:22] VITALS: BP 150/72
== END 2022-02-19 13:39 | disposition home or self-care (01) | DRG 871 ==
LOC: EDUNIT# 20:34 → ER FS 20:35 → 4TH 02-17 00:10
PROVIDERS: ADMIT Family Medicine; ATTEND Internal Medicine
DX: A41.9 Sepsis, unspecified organism (principal); J18.9 Pneumonia, unspecified organism; E87.1 Hypo-osmolality and hyponatremia; C91.10 Chronic lymphocytic leukemia of B-cell type not having achieved remission; I25.10 Atherosclerotic heart disease of native coronary artery without angina pectoris; I25.2 Old myocardial infarction; G40.909 Epilepsy, unspecified, not intractable, without status epilepticus; Z86.73 Personal history of transient ischemic attack (TIA), and cerebral infarction without residual deficits; E11.9 Type 2 diabetes mellitus without complications; Z79.4 Long term (current) use of insulin; F41.9 Anxiety disorder, unspecified; E86.1 Hypovolemia; R09.02 Hypoxemia; M10.9 Gout, unspecified; Z99.81 Dependence on supplemental oxygen; R53.1 Weakness; Z20.822 Contact with and (suspected) exposure to COVID-19
CPT/HCPCS: 36415; 71045; 80048; 80053; 81000; 82947; 83605; 83735; 85007; 85025; 85027; 86141; 87040; 87636; 87804; 94640; 94760; 94761; 96374; 96375

== ENCOUNTER → 2022-02-24 | Outpatient (CLI) | payer MEDICARE, OTHER ==
[~2022-02-24] MED LIST changes: +ALLO300T2 PO; +ALPR1TAB7 PO; +CARV6.252 PO; +CEFD300C3 PO; +CHOL200074 PO; +EZET10TA49 PO; +FISH1CAP15 PO; +GABA-486 PO; +INSU100I10 SC; +LEVO88TA54 PO; +MAGN400T39 PO; +MELO15TA39 PO; +MULT-1136 PO; +OMEP40CA6 PO; +ROSU40TA23 PO; +SEMA0.25 SQ; +SERT-414 PO
[2022-02-24 13:58] LABS: BASOPHILS # (AUTO) 0.1 10^3/uL (0.0-0.1); BASOPHILS % (AUTO) 0 % (0-10); EOSINOPHILS # (AUTO) 0.2 10^3/uL (0.0-0.3); EOSINOPHILS % (AUTO) 1 % (0-10); HEMATOCRIT 34 % (35-52); HEMOGLOBIN 10.7 g/dL (11.5-16.0); LYMPHOCYTES # (AUTO) 18.5 10^3/uL (1.0-4.0); LYMPHOCYTES % (AUTO) 81 % (12-44); MEAN CORPUSCULAR HEMOGLOBIN 31 pg (25-34); MEAN CORPUSCULAR HGB CONC 32 g/dL (32-36); MEAN CORPUSCULAR VOLUME 99 fL (80-99); MEAN PLATELET VOLUME 9.5 fL (9.0-12.2); MONOCYTES # (AUTO) 0.3 10^3/uL (0.0-1.0); MONOCYTES % (AUTO) 1 % (0-12); NEUTROPHILS # (AUTO) 3.7 10^3/uL (1.8-7.8); NEUTROPHILS % (AUTO) 16 % (42-75); PLATELET COUNT 301 10^3/uL (130-400); WHITE BLOOD COUNT 22.9 10^3/uL (4.3-11.0)
[2022-02-24 14:08] LABS: ALBUMIN 3.1 GM/DL (3.2-4.5); POTASSIUM 3.9 MMOL/L (3.6-5.0)
[2022-02-24 14:09] LABS: CALCIUM 8.8 MG/DL (8.5-10.1)
[2022-02-24 14:11] LABS: TOTAL PROTEIN 6.4 GM/DL (6.4-8.2)
[2022-02-24 14:12] LABS: BILIRUBIN,TOTAL 0.4 MG/DL (0.1-1.0)
== END ==
LOC: ONC 13:48
PROVIDERS: ATTEND Internal Medicine Hematology & Oncology
DX: C95.90 Leukemia, unspecified not having achieved remission (principal); R91.1 Solitary pulmonary nodule; D64.9 Anemia, unspecified
CPT/HCPCS: 80053; 83615; 85025; G0463; 36415; 99213

== ENCOUNTER → 2022-03-04 | Outpatient (CLI) | payer MEDICARE, OTHER ==
--- NOTE | 2022-03-04 16:23 | Diagnostic Imaging Report ---
Indication: Pneumonia. Time of Exam: 3:44 PM Comparison is made with prior chest from 02/16/2022. Heart size stable. Changes of median sternotomy are noted. There is some minimal patchy infiltrate or atelectasis right base. Left lung is clear. No significant effusion is seen. No pneumothorax. Impression: Minimal right basilar infiltrate or atelectasis. Dictated by: Dictated on workstation # [id number]
== END ==
LOC: RAD FS 15:31
PROVIDERS: ATTEND Nurse Practitioner Family
DX: J18.9 Pneumonia, unspecified organism (principal)
CPT/HCPCS: 71046

== ENCOUNTER 2022-04-13 11:36 | Emergency (ER) | payer MEDICARE, OTHER ==
[~2022-04-13] VITALS: Ht 154 cm; Wt 87.0 kg
[2022-04-13 12:04] LABS: BASOPHILS # (AUTO) 0.1 10^3/uL (0.0-0.1); BASOPHILS % (AUTO) 0 % (0-10); EOSINOPHILS # (AUTO) 0.2 10^3/uL (0.0-0.3); EOSINOPHILS % (AUTO) 1 % (0-10); HEMATOCRIT 37 % (35-52); LYMPHOCYTES # (AUTO) 9.8 10^3/uL (1.0-4.0); LYMPHOCYTES % (AUTO) 61 % (12-44); MEAN CORPUSCULAR HEMOGLOBIN 31 pg (25-34); MEAN CORPUSCULAR HGB CONC 32 g/dL (32-36); MEAN CORPUSCULAR VOLUME 95 fL (80-99); MEAN PLATELET VOLUME 9.8 fL (9.0-12.2); MONOCYTES # (AUTO) 0.4 10^3/uL (0.0-1.0); MONOCYTES % (AUTO) 2 % (0-12); NEUTROPHILS # (AUTO) 5.7 10^3/uL (1.8-7.8); NEUTROPHILS % (AUTO) 35 % (42-75); PLATELET COUNT 249 10^3/uL (130-400); WHITE BLOOD COUNT 16.2 10^3/uL (4.3-11.0)
--- NOTE | 2022-04-13 12:09 | Diagnostic Imaging Report ---
Portable erect AP chest at 1157 hours. INDICATION: Cough. FINDINGS: The heart is stable in size when compared to the prior exam of 02/16/2022. The previous study did note development of mild right basilar atelectasis/infiltrate. On this exam, the density in the right lung base is perhaps slightly greater than on the prior study. The right upper lung and left lung remain generally clear. The mediastinum is not widened. The osseous structures are intact. IMPRESSION: 1. There continues to be involvement of the right lung base by atelectasis/infiltrate. The density in this area is perhaps slightly greater than on the prior exam. 2. The overall appearance of the chest is otherwise stable. 3. If further study is desired, then CT of the chest would be recommended. Dictated by: Dictated on workstation # [id number]
--- NOTE | 2022-04-13 12:12 | ED Cough/URI ---
General Chief Complaint: Cough/Cold/Flu Symptoms Stated Complaint: LOW O2 Source: patient, other (walkin in clinic phone call) Exam Limitations: no limitations History of Present Illness Date Seen by Provider: Apr 13, 2022 Time Seen by Provider: 11:38 Initial Comments 72yoF with PMH of CAD, CLL, and CVA coming in as a referral from walkin clinic due to worsening cough and UTI like symptoms. Has had a cough since her pneumonia in February, but last night slightly worse. Having burning with urination for 3-4 days that have been worsening with some flank pain. No blood in urine. Has had chills, but not taking her temperature. Denies n/v, CP, weakness, numbness, or any other concerns. Allergies and Home Medications Allergies Coded Allergies: prednisone (Verified Allergy, Intermediate, 01/08/19) PO MAKES HER HAVE NAUSEA, IM IS FINE lisinopril (Verified Adverse Reaction, Mild, 01/08/19) COUGH Patient Home Medication List Home Medication List Reviewed: Yes Allopurinol (Allopurinol) 300 Mg Tablet, 300 MG PO DAILY, (Reported) Entered as Reported by: MAXIMILIANO ALEJO on 02/17/22 1452 Alprazolam (Alprazolam) 1 Mg Tablet, 1 MG PO DAILY PRN for ANXIETY, (Reported) Entered as Reported by: MAXIMILIANO ALEJO on 02/17/22 1452 Alprazolam (Alprazolam) 1 Mg Tablet, 1 MG PO HS, (Reported) Entered as Reported by: MAXIMILIANO ALEJO on 02/17/22 1452 Carvedilol (Carvedilol) 6.25 Mg Tablet, 6.25 MG PO BID WITH MEALS Prescribed by: ANDREA MARTINEZ on 02/19/22 0549 Cefdinir (Cefdinir) 300 Mg Capsule, 300 MG PO BID Prescribed by: ANDREA MARTINEZ on 02/19/22 0549 Cefdinir (Cefdinir) 300 Mg Capsule, 300 MG PO BID Prescribed by: HARVINDER CASTANON on 04/13/22 1231 Cholecalciferol (Vitamin D3) (Vitamin D3) 50 Mcg (2000 Unit) Capsule, 50 MCG PO BID, (Reported) Entered as Reported by: MAXIMILIANO ALEJO on 02/17/22 1452 Ezetimibe (Ezetimibe) 10 Mg Tablet, 10 MG PO DAILY, (Reported) Entered as Reported by: MAXIMILIANO ALEJO on 02/17/221451 Fish Oil/Dha/Epa (Fish Oil 1,200 mg Fish Oil) 1,200 Mg-144 Mg-216 Mg Capsule, 1 EACH PO BID, (Reported) Entered as Reported by: MAXIMILIANO ALEJO on 02/17/221451 Gabapentin (Gabapentin) 100 Mg Capsule, 100 MG PO TID, (Reported) Entered as Reported by: MAXIMILIANO ALEJO on 02/17/221451 Insulin Glargine,Hum.rec.anlog (Lantus Solostar) 100 Unit/Ml (3 Ml) Insuln.pen, 12 UNITS SC DAILY, (Reported) Entered as Reported by: MAXIMILIANO ALEJO on 02/17/221451 Levothyroxine Sodium (Levothyroxine Sodium) 88 Mcg Tablet, 88 MCG PO DAILY, (Reported) Entered as Reported by: MAXIMILIANO ALEJO on 02/17/221451 Magnesium Oxide (Magnesium) 400 Mg Magnesium Tablet, 400 MG PO DAILY, (Reported) Entered as Reported by: MAXIMILIANO ALEJO on 02/17/221451 Meloxicam (Meloxicam) 15 Mg Tablet, 15 MG PO DAILY, (Reported) Entered as Reported by: MAXIMILIANO ALEJO on 02/17/221451 Multivitamin (Multivitamin) 1 Each Tablet, 1 EACH PO DAILY, (Reported) Entered as Reported by: MAXIMILIANO ALEJO on 02/17/221451 Omeprazole (Omeprazole) 40 Mg Capsule.dr, 40 MG PO DAILY, (Reported) Entered as Reported by: MAXIMILIANO ALEJO on 02/17/221451 Rosuvastatin Calcium (Rosuvastatin Calcium) 40 Mg Tablet, 40 MG PO DAILY, (Reported) Entered as Reported by: MAXIMILIANO ALEJO on 02/17/221451 Semaglutide (Ozempic) 0.25 Mg/0.2 Ml Pen.injctr, 0.5 MG SQ FRI, (Reported) Entered as Reported by: MAXIMILIANO ALEJO on 02/17/221451 Sertraline HCl (Sertraline HCl) 100 Mg Tablet, 100 MG PO DAILY, (Reported) Entered as Reported by: MAXIMILIANO ALEJO on 02/17/221451 Review of Systems Review of Systems Constitutional: chills EENTM: No blurred vision Respiratory: cough, short of breath Cardiovascular: No chest pain Gastrointestinal: No abdominal pain, No nausea, No vomiting Genitourinary: dysuria Musculoskeletal: no symptoms reported Skin: no symptoms reported Psychiatric/Neurological: No Symptoms Reported Hematologic/Lymphatic: No Symptoms Reported Immunological/Allergic: no symptoms reported All Other Systems Reviewed Negative Unless Noted: Yes Past Ubzvtph-Efnkwa-Kfruom Hx Patient Social History Tobacco Use?: No Immunizations Up To Date First/Initial COVID19 Vaccinat: Moderna Second COVID19 Vaccination Isra: Moderna Third COVID19 Vaccination Date: Seasonal Allergies Seasonal Allergies: No Past Medical History Surgeries: Yes (CABG, LT HIP FX) CABG, Gallbladder, Joint Replacement, Orthopedic Respiratory: Yes Asthma Cardiac: Yes Coronary Artery Disease, Heart Attack Neurological: Yes Seizure Disorder, Stroke Genitourinary: No Gastrointestinal: No Musculoskeletal: No Endocrine: Yes Diabetes, Insulin dep HEENT: No Cancer: Yes Leukemia Psychosocial: Yes Anxiety Integumentary: No Psoriasis Blood Disorders: No Family Medical History No Pertinent Family Hx Physical Exam Vital Signs - First Documented 04/13/22 12:21 Temp 36.5 Pulse 87 Resp 22 B/P (MAP) 165/67 (99) Pulse Ox 93 O2 Delivery Room Air Capillary Refill : Height: 5'2.00" Weight: 202lbs. oz. 91.489855ge; 36.47 BMI Method:Stated General Appearance: WD/WN, no apparent distress Eyes: Bilateral Eye Normal Inspection HEENT: PERRL/EOMI, normal ENT inspection, pharynx normal Neck: non-tender, full range of motion, supple, normal inspection Respiratory: chest non-tender, no respiratory distress, no accessory muscle use, crackles Cardiovascular: regular rate, rhythm, no edema, no murmur Gastrointestinal: normal bowel sounds, non tender, soft; No distended, No guarding Extremities: normal range of motion, non-tender, normal inspection, no pedal edema, no calf tenderness, normal capillary refill Neurologic/Psychiatric: no motor/sensory deficits, alert, normal mood/affect Skin: normal color, warm/dry Lymphatic: no adenopathy Progress/Results/Core Measures Suspected Sepsis SIRS Temperature: Pulse: Respiratory Rate: Laboratory Tests 04/13/22 11:48: White Blood Count 16.2H Blood Pressure / Mean: Laboratory Tests 7/6/22 11:48: Creatinine 0.88, INR Comment 1.0, Platelet Count 249, Total Bilirubin 0.4 Results/Orders Lab Results Laboratory Tests Test 04/13/22 11:48 04/13/22 12:00 Range/Units White Blood Count 16.2 H 4.3-11.0 10^3/uL Red Blood Count 3.93 3.80-5.11 10^6/uL Hemoglobin 12.0 11.5-16.0 g/dL Hematocrit 37 35-52 % Mean Corpuscular Volume 95 80-99 fL Mean Corpuscular Hemoglobin 31 25-34 pg Mean Corpuscular Hemoglobin Concent 32 32-36 g/dL Red Cell Distribution Width 14.3 10.0-14.5 % Platelet Count 249 130-400 10^3/uL Mean Platelet Volume 9.8 9.0-12.2 fL Immature Granulocyte % (Auto) 0 % Neutrophils (%) (Auto) 35 L 42-75 % Lymphocytes (%) (Auto) 61 H 12-44 % Monocytes (%) (Auto) 2 0-12 % Eosinophils (%) (Auto) 1 0-10 % Basophils (%) (Auto) 0 0-10 % Neutrophils # (Auto) 5.7 1.8-7.8 10^3/uL Lymphocytes # (Auto) 9.8 H 1.0-4.0 10^3/uL Monocytes # (Auto) 0.4 0.0-1.0 10^3/uL Eosinophils # (Auto) 0.2 0.0-0.3 10^3/uL Basophils # (Auto) 0.1 0.0-0.1 10^3/uL Immature Granulocyte # (Auto) 0.0 0.0-0.1 10^3/uL Neutrophils % (Manual) 35 % Lymphocytes % (Manual) 53 % Monocytes % (Manual) 1 % Eosinophils % (Manual) 3 % Basophils % (Manual) 1 % Band Neutrophils 3 % Atypical Lymphocytes 4 % Prothrombin Time 13.3 12.2-14.7 SEC INR Comment 1.0 0.8-1.4 Activated Partial Thromboplast Time 27 24-35 SEC Urine Color ORANGE Urine Clarity TURBID Urine pH 5.0 5-9 Urine Specific [place] 1.015 L 1.016-1.022 Urine Protein 1+ H NEGATIVE Urine Glucose (UA) 3+ H NEGATIVE Urine Ketones NEGATIVE NEGATIVE Urine Nitrite POSITIVE H NEGATIVE Urine Bilirubin NEGATIVE NEGATIVE Urine Urobilinogen 1.0 < = 1.0 MG/DL Urine Leukocyte Esterase TRACE H NEGATIVE Urine RBC (Auto) TRACE-I H NEGATIVE Urine RBC NONE /HPF Urine WBC 50-100 H /HPF Urine Squamous Epithelial Cells RARE /HPF Urine Crystals NONE /LPF Urine Bacteria FEW H /HPF Urine Casts NONE /LPF Urine Mucus NEGATIVE /LPF Urine Culture Indicated YES Sodium Level 141 135-145 MMOL/L Potassium Level 3.9 3.6-5.0 MMOL/L Chloride Level 105 98-107 MMOL/L Carbon Dioxide Level 25 21-32 MMOL/L Anion Gap 11 5-14 MMOL/L Blood Urea Nitrogen 9 7-18 MG/DL Creatinine 0.88 0.60-1.30 MG/DL Estimat Glomerular Filtration Rate 69 BUN/Creatinine Ratio 10 Glucose Level 197 H 70-105 MG/DL Calcium Level 9.4 8.5-10.1 MG/DL Corrected Calcium 9.7 8.5-10.1 MG/DL Total Bilirubin 0.4 0.1-1.0 MG/DL Aspartate Amino Transf (AST/SGOT) 18 5-34 U/L Alanine Aminotransferase (ALT/SGPT) 9 0-55 U/L Alkaline Phosphatase 96 40-136 U/L Troponin I < 0.30 <0.30 NG/ML Pro-B-Type Natriuretic Peptide 1786.0 H <75.0 PG/ML Total Protein 7.6 6.4-8.2 GM/DL Albumin 3.6 3.2-4.5 GM/DL Influenza Type A (RT-PCR) Not Detected Not Detecte Influenza Type B (RT-PCR) Not Detected Not Detecte SARS-CoV-2 RNA (RT-PCR) Not Detected Not Detecte My Orders Orders - HARVINDER CASTANON MD Cbc With Automated Diff (04/13/22 11:51) Comprehensive Metabolic Panel (04/13/22 11:51) Protime With Inr (04/13/22 11:51) Partial Thromboplastin Time (04/13/22 11:51) Probnp Fs (04/13/22 11:51) Troponin I Fs (04/13/22 11:51) Chest 1 View Ap/Pa Only (04/13/22 11:51) Influenza A And B By Pcr (04/13/22 11:51) Covid 19 Inhouse Test (04/13/22 11:51) Ekg Tracing (04/13/22 11:51) Manual Differential (04/13/22 11:48) Ua Culture If Indicated (04/13/22 12:19) Ceftriaxone 1 Gm Pre-Mix (Rocephin 1 Gm (04/13/22 12:30) Doxycycline Hyclate Tablet (Vibramycin T (04/13/22 12:20) Urine Culture (04/13/22 11:48) Medications Given in ED Current Medications Medications Dose Ordered Sig/Ileana Route Start Time Stop Time Status Last Admin Dose Admin Ceftriaxone Sodium/Dextrose 50 ml @ 100 mls/hr ONCE ONCE IV 04/13/22 12:30 04/13/22 12:59 DC 04/13/22 12:37 100 MLS/HR Vital Signs/I&O 04/13/22 12:21 Temp 36.5 Pulse 87 Resp 22 B/P (MAP) 165/67 (99) Pulse Ox 93 O2 Delivery Room Air Capillary Refill : Progress Note : Progress Note 72-year-old female with above history coming in as referral from the walk-in clinic due to concerns for UTI as well as worsening cough with recent pneumonia. ABCs were intact and vitals were stable on presentation although with ambulation her oxygen does go down to around 89%. Jumps back up to around 95% after less than a minute of resting. The patient does have oxygen at home and she does have a portable tank that she can take with her. She typically wears 2 L as needed but mostly at nighttime. I discussed with her that I recommend she wears it with any type of ambulation which she is agreeable to. She has follow- up with a solar energy installation manager in [facility] in regards to her new pulmonary issues. She also has recently diagnosed CLL and has not quite started treatment yet, but does have follow-up with an hem/oncologist in [place]. Chest x-ray with concerns for right lower lobe infiltrate. She was given a dose of IV ceftriaxone as well as doxycycline. Urinalysis also consistent with infection, the antibiotics will cover for both. Her oxygen remains near her baseline, and she does have oxygen at home to put on. I believe she stable for discharge with outpatient follow-up. She was sent home with strict return precautions ECG Initial ECG Impression Date: Apr 13, 2022 Initial ECG Impression Time: 12:05 Initial ECG Rate: 74 Initial ECG Rhythm: Normal Sinus Comment Narrow QRS, normal axis, no significant ST elevation, ST depression in the high lateral leads with some T wave flattening similarly Diagnostic Imaging Diagonstic Imaging: Xray Plain Films/CT/US/NM/MRI: chest Comments [facility], [place] NAME: JUAN HEN[facility] REC#: [id number] PT STATUS: REG ER : 1950 PHYSICIAN: HARVINDER CASTANON MD ADMIT DATE: 04/13/22/ER FS Draft Date of Exam:04/13/22 CHEST 1 VIEW AP/PA ONLY Portable erect AP chest at 1157 hours. INDICATION: Cough. FINDINGS: The heart is stable in size when compared to the prior exam of 02/16/2022. The previous study did note development of mild right basilar atelectasis/infiltrate. On this exam, the density in the right lung base is perhaps slightly greater than on the prior study. The right upper lung and left lung remain generally clear. The mediastinum is not widened. The osseous structures are intact. IMPRESSION: 1. There continues to be involvement of the right lung base by atelectasis/infiltrate. The density in this area is perhaps slightly greater than on the prior exam. 2. The overall appearance of the chest is otherwise stable. 3. If further study is desired, then CT of the chest would be recommended. Dictated on workstation # [id number] Dict: 04/13/22 1207 Trans: 04/13/22 1209 [id number] Interpreted by: MADDI ROY MD Electronically signed by: Departure Impression Primary Impression: Right lower lobe pneumonia Qualified Codes: J18.9 - Pneumonia, unspecified organism Additional Impression: Cystitis without hematuria Disposition: 01 HOME, SELF-CARE Condition: Stable Departure-Patient Inst. Decision time for Depature: 13:05 Referrals: DIANE CROWELL APRN (PCP) Primary Care Physician [facility] (Family) Primary Care Physician Patient Instructions: Acute Cystitis (DC), Pneumonia, Adult ED Add. Discharge Instructions: You do look like you have an infection in your right lower part of your lung w hich is likely developing pneumonia. The antibiotic we will be placing you on will cover pneumonia and a urinary tract infection. You will take it twice a day for 10 days with your first dose tomorrow morning. The antibiotic we gave you in the emergency department and your IV will last until then. I recommend using your oxygen around the house for the next couple of days, and then using it when you are ambulating outside of the house until you are feeling better. Scripts Cefdinir (Cefdinir) 300 Mg Capsule 300 MG PO BID for 10 Days, #20 CAP 0 Refills Prov: HARVINDER CASTANON MD 04/13/22 Work/School Note: Work Release Form Date Seen in the Emergency Department: Apr 13, 2022 Return to Work: Apr 15, 2022 Restrictions: No Restrictions HARVINDER CASTANON MD Apr 13, 2022 12:12
[2022-04-13] MEDS ORDERED: DOXYCYCLINE 100 MG (VIBRAMYCIN) TABLET PO STA (12:20)
[2022-04-13] MEDS ORDERED: cefTRIAXone 1 GM PRE-MIX 50 ML IV ONE (12:30)
[2022-04-13] MEDS ORDERED: CEFD300C3 PO (12:31)
[2022-04-13 12:33] LABS: PROTHROMBIN TIME PATIENT 13.3 SEC (12.2-14.7)
[2022-04-13 12:41] LABS: BILIRUBIN,URINE NEGATIVE (NEGATIVE); CLARITY,URINE TURBID; COLOR,URINE ORANGE; GLUCOSE, URINE (UA) 3+ (NEGATIVE); KETONES,URINE NEGATIVE (NEGATIVE); LEUKOCYTE ESTERASE ,URINE TRACE (NEGATIVE); NITRITE,URINE POSITIVE (NEGATIVE); PROTEIN,URINE 1+ (NEGATIVE)
[2022-04-13 12:48] LABS: BACTERIA,URINE FEW /HPF; SQUAMOUS EPITHELIAL CELL,UR RARE /HPF; WBC,URINE 50-100 /HPF
[2022-04-13 12:49] LABS: SODIUM 141 MMOL/L (135-145)
[2022-04-13 12:50] LABS: ALANINE AMINOTRANSFERASE 9 U/L (0-55); ALKALINE PHOSPHATASE 96 U/L (40-136); BILIRUBIN,TOTAL 0.4 MG/DL (0.1-1.0); BUN/CREATININE RATIO 10; CALCIUM 9.4 MG/DL (8.5-10.1); CARBON DIOXIDE 25 MMOL/L (21-32); CHLORIDE 105 MMOL/L (98-107); CREATININE SERUM 0.88 MG/DL (0.60-1.30); GFR ESTIMATED 69; GLUCOSE 197 MG/DL (70-105); POTASSIUM 3.9 MMOL/L (3.6-5.0); TOTAL PROTEIN 7.6 GM/DL (6.4-8.2)
[2022-04-13 12:51] LABS: ALBUMIN 3.6 GM/DL (3.2-4.5)
[2022-04-13 12:59] LABS: BAND NEUTROPHILS 3 %; BASOPHILS % (MANUAL) 1 %; EOSINOPHILS % (MANUAL) 3 %; LYMPHOCYTES % (MANUAL) 53 %; MONOCYTES % (MANUAL) 1 %; NEUTROPHILS % (MANUAL) 35 %
[2022-04-13 13:00] LABS: ATYPICAL LYMPHOCYTES 4 %
[2022-04-13 13:35] VITALS: BP 140/51
== END 2022-04-13 13:20 | disposition home or self-care (01) ==
LOC: EDUNIT# 11:36 → ER FS 11:38
DX: J18.9 Pneumonia, unspecified organism (principal); N30.00 Acute cystitis without hematuria; E11.9 Type 2 diabetes mellitus without complications; Z79.4 Long term (current) use of insulin; Z20.822 Contact with and (suspected) exposure to COVID-19; Z99.81 Dependence on supplemental oxygen
CPT/HCPCS: 36415; 71045; 80053; 81000; 83880; 84484; 85007; 85027; 85610; 85730; 87077; 87088; 87636; 93005

== ENCOUNTER → 2022-04-28 | Outpatient (CLI) | payer MEDICARE, OTHER ==
[2022-04-28 14:00] LABS: BASOPHILS # (AUTO) 0.1 10^3/uL (0.0-0.1); BASOPHILS % (AUTO) 1 % (0-10); EOSINOPHILS # (AUTO) 0.4 10^3/uL (0.0-0.3); EOSINOPHILS % (AUTO) 3 % (0-10); HEMATOCRIT 43 % (35-52); HEMOGLOBIN 13.4 g/dL (11.5-16.0); LYMPHOCYTES # (AUTO) 9.7 10^3/uL (1.0-4.0); LYMPHOCYTES % (AUTO) 68 % (12-44); MEAN CORPUSCULAR HEMOGLOBIN 30 pg (25-34); MEAN CORPUSCULAR HGB CONC 31 g/dL (32-36); MEAN CORPUSCULAR VOLUME 96 fL (80-99); MONOCYTES # (AUTO) 0.5 10^3/uL (0.0-1.0); MONOCYTES % (AUTO) 3 % (0-12); NEUTROPHILS # (AUTO) 3.6 10^3/uL (1.8-7.8); NEUTROPHILS % (AUTO) 25 % (42-75); PLATELET COUNT 192 10^3/uL (130-400); WHITE BLOOD COUNT 14.2 10^3/uL (4.3-11.0)
[2022-04-28 14:23] LABS: ALBUMIN 3.8 GM/DL (3.2-4.5); BILIRUBIN,TOTAL 0.8 MG/DL (0.1-1.0); CALCIUM 9.8 MG/DL (8.5-10.1); CREATININE SERUM 1.33 MG/DL (0.60-1.30); POTASSIUM 5.1 MMOL/L (3.6-5.0); TOTAL PROTEIN 7.7 GM/DL (6.4-8.2)
== END ==
LOC: ONC 13:42
PROVIDERS: ATTEND Internal Medicine Hematology & Oncology
DX: C91.10 Chronic lymphocytic leukemia of B-cell type not having achieved remission (principal); R91.1 Solitary pulmonary nodule
CPT/HCPCS: 36415; 80053; 82784; 83615; 85025

== ENCOUNTER → 2022-06-02 | Outpatient (CLI) | payer MEDICARE, OTHER ==
[2022-06-02 10:24] LABS: BASOPHILS # (AUTO) 0.1 10^3/uL (0.0-0.1); BASOPHILS % (AUTO) 1 % (0-10); EOSINOPHILS # (AUTO) 0.4 10^3/uL (0.0-0.3); EOSINOPHILS % (AUTO) 3 % (0-10); HEMATOCRIT 40 % (35-52); LYMPHOCYTES # (AUTO) 8.4 10^3/uL (1.0-4.0); LYMPHOCYTES % (AUTO) 70 % (12-44); MEAN CORPUSCULAR HEMOGLOBIN 31 pg (25-34); MEAN CORPUSCULAR HGB CONC 32 g/dL (32-36); MEAN CORPUSCULAR VOLUME 95 fL (80-99); MEAN PLATELET VOLUME 10.4 fL (9.0-12.2); MONOCYTES # (AUTO) 0.5 10^3/uL (0.0-1.0); MONOCYTES % (AUTO) 4 % (0-12); NEUTROPHILS # (AUTO) 2.6 10^3/uL (1.8-7.8); NEUTROPHILS % (AUTO) 22 % (42-75); PLATELET COUNT 148 10^3/uL (130-400); WHITE BLOOD COUNT 11.9 10^3/uL (4.3-11.0)
[2022-06-02 10:47] LABS: ALBUMIN 3.8 GM/DL (3.2-4.5); BILIRUBIN,TOTAL 0.7 MG/DL (0.1-1.0); CALCIUM 9.5 MG/DL (8.5-10.1); CREATININE SERUM 1.15 MG/DL (0.60-1.30); POTASSIUM 4.5 MMOL/L (3.6-5.0); TOTAL PROTEIN 7.3 GM/DL (6.4-8.2)
== END ==
LOC: ONC 10:02
PROVIDERS: ATTEND Internal Medicine Hematology & Oncology
DX: C91.10 Chronic lymphocytic leukemia of B-cell type not having achieved remission (principal); D64.9 Anemia, unspecified; R91.1 Solitary pulmonary nodule
CPT/HCPCS: 80053; 83615; 85025; G0463; 36415; 99213

== ENCOUNTER 2022-06-04 21:34 | Emergency (ER) | payer MEDICARE, OTHER ==
[~2022-06-04] VITALS: Ht 154.9 cm; Wt 82.6 kg
--- NOTE | 2022-06-04 21:41 | ED Cough/URI ---
General Stated Complaint: COUGH History of Present Illness Date Seen by Provider: Jun 04, 2022 Time Seen by Provider: 21:41 Initial Comments 72-year-old female presents with cough and may be some minor shortness of breath. Patient reports that the cough started today. She had a little bit of a sore throat yesterday. She had her teeth pulled yesterday and was not sure if that was related. Patient has barky type cough with some mild stridor. She denies any fever, chills, nausea or vomiting. Patient does report that she has had frequent pneumonia recently. She does occasionally use breathing treatments. She has no nausea vomiting diarrhea or other systemic complaints. Allergies and Home Medications Allergies Coded Allergies: No Known Drug Allergies (Unverified , 06/04/22) Patient Home Medication List Home Medication List Reviewed: Yes Review of Systems Review of Systems Constitutional: No chills, No fever EENTM: see HPI Respiratory: see HPI, cough Cardiovascular: no symptoms reported; No chest pain, No palpitations Gastrointestinal: No abdominal pain, No nausea, No vomiting Genitourinary: no symptoms reported Musculoskeletal: no symptoms reported Skin: no symptoms reported Psychiatric/Neurological: No Symptoms Reported Hematologic/Lymphatic: No Symptoms Reported Physical Exam Vital Signs - First Documented 06/04/22 21:38 Temp 36.8 Pulse 62 Resp 22 B/P (MAP) 179/56 (97) Pulse Ox 94 O2 Delivery Room Air O2 Flow Rate 2.00 Capillary Refill : Height: '" Weight: lbs. oz. kg; BMI Method: General Appearance: WD/WN, no apparent distress, other (Frequent cough) HEENT: PERRL/EOMI, pharynx normal Neck: full range of motion, supple Respiratory: lungs clear, normal breath sounds, no respiratory distress; No decreased breath sounds, No wheezing Cardiovascular: normal peripheral pulses, regular rate, rhythm Gastrointestinal: non tender, soft Neurologic/Psychiatric: alert, normal mood/affect, oriented x 3 Skin: normal color, warm/dry Progress/Results/Core Measures Suspected Sepsis SIRS Temperature: Pulse: Respiratory Rate: Laboratory Tests 06/04/22 21:45: White Blood Count 15.2H Blood Pressure / Mean: Laboratory Tests 06/04/22 21:45: Creatinine 1.09, Platelet Count 138, Total Bilirubin 0.6 Results/Orders Lab Results Laboratory Tests Test 06/04/22 21:41 06/04/22 21:45 Range/Units SARS-CoV-2 RNA (RT-PCR) Not Detected Not Detecte White Blood Count 15.2 H 4.3-11.0 10^3/uL Red Blood Count 3.89 3.80-5.11 10^6/uL Hemoglobin 12.1 11.5-16.0 g/dL Hematocrit 36 35-52 % Mean Corpuscular Volume 93 80-99 fL Mean Corpuscular Hemoglobin 31 25-34 pg Mean Corpuscular Hemoglobin Concent 33 32-36 g/dL Red Cell Distribution Width 14.3 10.0-14.5 % Platelet Count 138 130-400 10^3/uL Mean Platelet Volume 10.6 9.0-12.2 fL Immature Granulocyte % (Auto) 0 % Neutrophils (%) (Auto) 33 L 42-75 % Lymphocytes (%) (Auto) 60 H 12-44 % Monocytes (%) (Auto) 3 0-12 % Eosinophils (%) (Auto) 3 0-10 % Basophils (%) (Auto) 0 0-10 % Neutrophils # (Auto) 5.0 1.8-7.8 10^3/uL Lymphocytes # (Auto) 9.1 H 1.0-4.0 10^3/uL Monocytes # (Auto) 0.5 0.0-1.0 10^3/uL Eosinophils # (Auto) 0.5 H 0.0-0.3 10^3/uL Basophils # (Auto) 0.1 0.0-0.1 10^3/uL Immature Granulocyte # (Auto) 0.0 0.0-0.1 10^3/uL Neutrophils % (Manual) 55 % Lymphocytes % (Manual) 40 % Monocytes % (Manual) 4 % Eosinophils % (Manual) 1 % Hypochromasia MODERATE Elliptocytes MODERATE Sodium Level 132 L 135-145 MMOL/L Potassium Level 4.4 3.6-5.0 MMOL/L Chloride Level 97 L 98-107 MMOL/L Carbon Dioxide Level 25 21-32 MMOL/L Anion Gap 10 5-14 MMOL/L Blood Urea Nitrogen 18 7-18 MG/DL Creatinine 1.09 0.60-1.30 MG/DL Estimat Glomerular Filtration Rate 54 BUN/Creatinine Ratio 17 Glucose Level 278 H 70-105 MG/DL Calcium Level 9.5 8.5-10.1 MG/DL Corrected Calcium 9.6 8.5-10.1 MG/DL Magnesium Level 1.7 1.6-2.4 MG/DL Total Bilirubin 0.6 0.1-1.0 MG/DL Aspartate Amino Transf (AST/SGOT) 26 5-34 U/L Alanine Aminotransferase (ALT/SGPT) 16 0-55 U/L Alkaline Phosphatase 90 40-136 U/L Total Protein 7.0 6.4-8.2 GM/DL Albumin 3.9 3.2-4.5 GM/DL My Orders Orders - SIMON,OMAYRA L DO Albuterol/Ipra Inhalation Soln (Duoneb I (06/04/22 21:45) Dexamethasone Injection (Decadron Inje (06/04/22 21:45) Svn Small Volume Nebulizer (06/04/22 21:45) Benzonatate Capsule (Tessalon Perles) (06/04/22 21:45) Cbc With Automated Diff (06/04/22 21:45) Comprehensive Metabolic Panel (06/04/22 21:45) Magnesium (06/04/22 21:45) Covid 19 Inhouse Test (06/04/22 21:45) Chest Pa/Lat (2 View) (06/04/22 21:45) Manual Differential (06/04/22 21:45) Ed Iv/Invasive Line Start (06/04/22 21:55) Medications Given in ED Current Medications Medications Dose Ordered Sig/Ileana Route Start Time Stop Time Status Last Admin Dose Admin Albuterol/ Ipratropium 3 ml ONCE ONCE INH 06/04/22 21:45 06/04/22 21:51 DC 06/04/22 22:00 3 ML Dexamethasone Sodium Phosphate 10 mg ONCE ONCE IV 06/04/22 21:45 06/04/22 21:51 DC 06/04/22 22:00 10 MG Vital Signs/I&O 06/04/22 06/04/22 21:38 21:38 Temp 36.8 Pulse 62 Resp 22 B/P (MAP) 179/56 (97) Pulse Ox 94 O2 Delivery Room Air Nasal Cannula O2 Flow Rate 2.00 Capillary Refill : Progress Note : Progress Note When patient first presented she had a frequent barky cough with some mild stridor associated with the cough. That improved following an dexamethasone and Tessalon Perle. X-ray I do not note any infiltrate. She does have a minor white count likely related to CLL. However with her history I will start her on azithromycin and give her a prescription for Tessalon Perles. Patient should follow-up with her primary care provider next week as needed. Patient stable and discharged home Diagnostic Imaging Diagonstic Imaging: Xray Plain Films/CT/US/NM/MRI: chest Comments No infiltrate noted Departure Impression Primary Impression: Upper respiratory infection Qualified Codes: J06.9 - Acute upper respiratory infection, unspecified Disposition: HOME, SELF-CARE Condition: Stable Departure-Patient Inst. Patient Instructions: Upper Respiratory Infection ED Add. Discharge Instructions: Humidified air as needed Please use your nebulizer every 4 hours as needed Follow-up with your primary care provider next week if symptoms are not improving Scripts Benzonatate (TESSALON PERLES) 100 Mg Capsule 100 MG PO TID PRN for COUGH, #14 CAP Prov: OMAYRA SIMON DO 06/04/22 Azithromycin (Azithromycin) 250 Mg Tablet 250 MG PO UD, #6 TAB TAKE 2 TABLETS ON DAY ONE THEN TAKE 1 TABLET DAILY FOR FOUR MORE DAYS Prov: OMAYRA SIMON DO 06/04/22 OMAYRA SIMON DO Jun 04, 2022 21:41
[2022-06-04] MEDS ORDERED: BENZONATATE 100 MG (TESSALON) CAPSULE PO SCH (21:45)
[2022-06-04] MEDS ORDERED: RT-ALBUTEROL/IPRATROPIUM 3 ML (DUONEB) VIAL INH ONE (21:45)
[2022-06-04 21:54] LABS: BASOPHILS # (AUTO) 0.1 10^3/uL (0.0-0.1); BASOPHILS % (AUTO) 0 % (0-10); EOSINOPHILS # (AUTO) 0.5 10^3/uL (0.0-0.3); EOSINOPHILS % (AUTO) 3 % (0-10); HEMATOCRIT 36 % (35-52); HEMOGLOBIN 12.1 g/dL (11.5-16.0); LYMPHOCYTES # (AUTO) 9.1 10^3/uL (1.0-4.0); LYMPHOCYTES % (AUTO) 60 % (12-44); MEAN CORPUSCULAR HEMOGLOBIN 31 pg (25-34); MEAN CORPUSCULAR HGB CONC 33 g/dL (32-36); MEAN CORPUSCULAR VOLUME 93 fL (80-99); MEAN PLATELET VOLUME 10.6 fL (9.0-12.2); MONOCYTES # (AUTO) 0.5 10^3/uL (0.0-1.0); MONOCYTES % (AUTO) 3 % (0-12); NEUTROPHILS % (AUTO) 33 % (42-75); PLATELET COUNT 138 10^3/uL (130-400); WHITE BLOOD COUNT 15.2 10^3/uL (4.3-11.0)
[2022-06-04 22:12] LABS: ALBUMIN 3.9 GM/DL (3.2-4.5); BILIRUBIN,TOTAL 0.6 MG/DL (0.1-1.0); CALCIUM 9.5 MG/DL (8.5-10.1); CREATININE SERUM 1.09 MG/DL (0.60-1.30); MAGNESIUM 1.7 MG/DL (1.6-2.4); POTASSIUM 4.4 MMOL/L (3.6-5.0)
[2022-06-04 22:17] LABS: ELLIPT/OVALOCYTES MODERATE; EOSINOPHILS % (MANUAL) 1 %; HYPOCHROMASIA MODERATE; LYMPHOCYTES % (MANUAL) 40 %; MONOCYTES % (MANUAL) 4 %; NEUTROPHILS % (MANUAL) 55 %
[2022-06-04] MEDS ORDERED: AZIT250T12 PO (22:32)
[2022-06-04] MEDS ORDERED: BENZ100C18 PO (22:32)
[2022-06-04 22:35] VITALS: BP 162/47
--- NOTE | 2022-06-04 22:52 | Diagnostic Imaging Report ---
EXAMINATION: CHEST (PA and lateral). CLINICAL INDICATION: 72-year-old female, cough. Shortness of breath. COMPARISON: March 04, 2022. FINDINGS: There are median sternotomy wires. Heart size and mediastinal contours are unchanged. There is no identified pneumothorax. There is no large pleural effusion. There is interval improved aeration of the right lung base. There is no identified current focal airspace consolidation. IMPRESSION: No identified acute cardiopulmonary abnormality. Dictated by: Dictated on workstation # [id number]
== END 2022-06-04 22:36 | disposition home or self-care (01) ==
LOC: ER FS 21:38 → MERGE 21:38 → ER FS 22:36
DX: J06.9 Acute upper respiratory infection, unspecified (principal); Z20.822 Contact with and (suspected) exposure to COVID-19
CPT/HCPCS: 36415; 71046; 80053; 83735; 85007; 85027; 87636; 94640

== ENCOUNTER 2022-06-14 08:21 | Day surgery (SDC) | payer MEDICARE, OTHER ==
[2022-06-14] VITALS (10 sets, daily range): BP systolic 142–184; BP diastolic 62–71
[~2022-06-14] VITALS: Ht 154.9 cm; Wt 81.6 kg
[~2022-06-14 08:21] MED LIST changes: +AZIT250T12 PO; +BENZ100C18 PO
[2022-06-14 09:28] LABS: ABSOLUTE RETIC # 78 10e9/uL (24-90); BASOPHILS # (AUTO) 0.1 10^3/uL (0.0-0.1); BASOPHILS % (AUTO) 0 % (0-10); EOSINOPHILS # (AUTO) 0.5 10^3/uL (0.0-0.3); EOSINOPHILS % (AUTO) 2 % (0-10); HEMATOCRIT 37 % (35-52); LYMPHOCYTES # (AUTO) 17.6 10^3/uL (1.0-4.0); LYMPHOCYTES % (AUTO) 84 % (12-44); MEAN CORPUSCULAR HEMOGLOBIN 31 pg (25-34); MEAN CORPUSCULAR HGB CONC 33 g/dL (32-36); MEAN CORPUSCULAR VOLUME 95 fL (80-99); MONOCYTES # (AUTO) 0.3 10^3/uL (0.0-1.0); MONOCYTES % (AUTO) 2 % (0-12); NEUTROPHILS # (AUTO) 2.4 10^3/uL (1.8-7.8); NEUTROPHILS % (AUTO) 11 % (42-75); PLATELET COUNT 192 10^3/uL (130-400); RETICULOCYTE % 1.99 % (0.50-2.40); WHITE BLOOD COUNT 20.9 10^3/uL (4.3-11.0)
[2022-06-14 09:41] LABS: INR 1.1 (0.8-1.4); PROTHROMBIN TIME PATIENT 14.3 SEC (12.2-14.7)
[2022-06-14] MEDS ORDERED: GABA-486 PO (09:53)
[2022-06-14] MEDS ORDERED: NS IV 1000 ML 1,000 ML IV STA (09:56)
[2022-06-14] MEDS ORDERED: TRM50T PO (09:57)
[2022-06-14] MEDS ORDERED: GLIM4TAB5 PO (09:57)
[2022-06-14] MEDS ORDERED: SPIR25TA5 PO (09:57)
[2022-06-14] MEDS ORDERED: fentaNYL INJ 100 MCG/2 ML AMP IVP ONE (10:00)
[2022-06-14] MEDS ORDERED: MIDAZOLAM 2 MG/2 ML (VERSED) VIAL IVP ONE (10:00)
[2022-06-14] MEDS ORDERED: LIDOCAINE 1% INJ 50 ML (XYLOCAINE) VIAL IJ ONE (10:00)
[2022-06-14] MEDS ORDERED: METH-731 PO (10:02)
[2022-06-14] MEDS ORDERED: MIDAZOLAM 2 MG/2 ML (VERSED) VIAL ONE (10:06)
[2022-06-14] MEDS ORDERED: fentaNYL INJ 100 MCG/2 ML AMP ONE (10:06)
[2022-06-14] MEDS ORDERED: LIDOCAINE 1% INJ 50 ML (XYLOCAINE) VIAL ONE (10:06)
[2022-06-14] MEDS ORDERED: NS IV 1000 ML 1,000 ML ONE (10:06)
[2022-06-14] MEDS ORDERED: ASPI-479 PO (10:12)
[2022-06-14 10:48] LABS: BAND NEUTROPHILS 1 %; LYMPHOCYTES % (MANUAL) 75 %; NEUTROPHILS % (MANUAL) 9 %
[2022-06-14 10:49] LABS: ATYPICAL LYMPHOCYTES 10 %; BASOPHILS % (MANUAL) 0 %; ELLIPT/OVALOCYTES SLIGHT; EOSINOPHILS % (MANUAL) 3 %; MONOCYTES % (MANUAL) 2 %
[2022-06-14] MEDS ORDERED: HYDROcodone/APAP 5 MG/325 MG (LORTAB) TAB PO PRN (11:15)
--- NOTE | 2022-06-14 11:16 | Pre-Op Note & Conscious Sedat ---
Pre-Operative Progress Note Date of Available H&P: Jun 14, 2022 Date H&P Reviewed: Jun 14, 2022 Time H&P Reviewed: 09:00 Pre-Op Diagnosis: C91.10 Conscious Sedation Pre-Proced Time 09:00 ASA Score 2 For ASA 3 and 4: Consider anesthesia and medical clearance. Also, for patients with a history of failed moderate sedation consider anesthesia. Airway Lungs Heart ASA score ASA 1: a normal healthy patient ASA 2: a patient with a mild systemic disease (mid diabetes, controlled hypertension, obesity ASA 3: a patient with a severe systemic disease that limits activity (angina, COPD, prior Myocardial infarction) ASA 4: a patient with an incapacitating disease that is a constant threat to life (CHF, renal failure) ASA 5: a moribund patient not expected to survive 24 hrs. (ruptured aneurysm) ASA 6: a declared brain- patient whose organs are being harvested. For emergent operations, add the letter E after the classification Mallampati Classification Grade 2 Sedation Plan Analgesia, Amnesia, Plan communicated to team members, Discussed options with patient/fam, Discussed risks with patient/fam The patient is an appropriate candidate to undergo the planned procedure, sedation, and anesthesia. The patient immediately re-assessed prior to indication. ANKUSH MONGE MD Jun 14, 2022 11:16
--- NOTE | 2022-06-14 11:20 | Diagnostic Imaging Report ---
INDICATION: C91.10 The patient was brought to the CT suite and placed on table in the prone position. Axial imaging through the pelvis was performed to evaluate appropriate entry site. Low back was prepped and draped in the usual sterile fashion. Procedure was performed utilizing conscious sedation with radiology nursing and constant patient monitoring. Patient was given a total of 50 mcg fentanyl intravenously and 1 mg of Versed intravenously. Total procedure time was 4 minutes. The patient was prepped and draped usual sterile fashion. Small amount of 1% lidocaine was utilized for local anesthesia. Bone marrow needle was advanced and placed with its tip along the posterior cortex of the right iliac bone. The needle was advanced through the cortex utilized the bone marrow drill. 2 bone marrow aspirates were then obtained. Next, the bone marrow drill was utilized to obtain a bone marrow core sample. The needle was removed. Hemostasis was obtained using manual compression. Patient tolerated the procedure well and left the department in stable condition. IMPRESSION: Successful CT-guided bone marrow aspiration and core biopsy, utilizing conscious sedation. Dictated by: Dictated on workstation # [id number]
== END 2022-06-14 13:00 | disposition home or self-care (01) ==
LOC: RAD 08:21 → SDC 10:57 → RAD 13:00
PROVIDERS: ATTEND Internal Medicine Hematology & Oncology
DX: C91.10 Chronic lymphocytic leukemia of B-cell type not having achieved remission (principal)
CPT/HCPCS: 36415; 38222; 77012; 82947; 85007; 85027; 85045; 85055; 85610; 85730; 99156

== ENCOUNTER → 2022-06-28 | Outpatient (CLI) | payer MEDICARE, OTHER ==
[~2022-06-28] MED LIST changes: +ASPI-479 PO; +CATHETER FLUSH 10 ML SYR IV PRN; +GLIM4TAB5 PO; +HOLD METFORMIN - RECEIVED CONTRAST 20 ML VIAL IV SCH; +IOHEXOL 350 MG/ML 100 ML (OMNIPAQUE 350) VIAL IV ONE; +METH-731 PO; +NS 100 ML (IVPB) BAG IV ONE; +SPIR25TA5 PO; +TRM50T PO
--- NOTE | 2022-06-28 14:17 | Diagnostic Imaging Report ---
EXAMINATION: CT chest, abdomen, and pelvis with intravenous contrast. TECHNIQUE: Multiple contiguous axial images were obtained through the chest, abdomen and pelvis after the uneventful administration of intravenous contrast. All CT scans use one or more of the following dose optimizing techniques: automated exposure control, MA and/or KvP adjustment based on patient size and exam type or iterative reconstruction. HISTORY: Leukemia. COMPARISON: 07/29/2021. FINDINGS: There is no edema or pneumonia. No pleural effusion. No pneumothorax. There is a 7 mm right lower lobe pulmonary nodule, unchanged. There is a new area of atelectasis or consolidation in the right lower lobe. There are a few scattered tree-in-bud nodules. There is no axillary or supraclavicular lymphadenopathy. There is no mediastinal lymphadenopathy. 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 Heart size is normal. There are severe coronary artery calcifications. No pericardial effusion. Aorta is normal in caliber. The liver is normal without focal lesion. There is no biliary ductal dilation. Gallbladder is absent. Pancreas is normal. Spleen is normal. Adrenal glands are normal. The kidneys are normal. There is no hydronephrosis. Urinary bladder is normal. Bowel is normal in caliber without obstruction or inflammation. No free fluid or air. No abdominal or pelvic lymphadenopathy. Aorta is normal in caliber without aneurysm. There are no suspicious osseus lesions. There has been a left hip arthroplasty. IMPRESSION: 1. New atelectasis or consolidation in the right lower lobe with a few scattered tree-in-bud nodules suggestive of an endobronchial infection. 2. No lymphadenopathy in the chest, abdomen, or pelvis. Dictated by: Dictated on workstation # [id number]
== END ==
LOC: RAD 10:09
PROVIDERS: ATTEND Internal Medicine Hematology & Oncology
DX: C91.10 Chronic lymphocytic leukemia of B-cell type not having achieved remission (principal)
CPT/HCPCS: 71260; 74177

== ENCOUNTER → 2022-07-08 | Outpatient (RCR) | payer MEDICARE, OTHER ==
[~2022-07-08] MED LIST changes: -CATHETER FLUSH 10 ML SYR IV PRN; -HOLD METFORMIN - RECEIVED CONTRAST 20 ML VIAL IV SCH; -IOHEXOL 350 MG/ML 100 ML (OMNIPAQUE 350) VIAL IV ONE; -NS 100 ML (IVPB) BAG IV ONE
== END | disposition home or self-care (01) ==
LOC: ONC 06-23 14:02
PROVIDERS: ATTEND Internal Medicine Hematology & Oncology
DX: C91.10 Chronic lymphocytic leukemia of B-cell type not having achieved remission (principal); D64.9 Anemia, unspecified; R91.1 Solitary pulmonary nodule
CPT/HCPCS: 99213

== ENCOUNTER 2022-10-17 14:35 | Outpatient (RCR) | payer MEDICARE, OTHER ==
[2022-10-17 14:51] LABS: BASOPHILS % (AUTO) 0 % (0-10); EOSINOPHILS # (AUTO) 0.3 10^3/uL (0.0-0.3); EOSINOPHILS % (AUTO) 1 % (0-10); HEMATOCRIT 41 % (35-52); LYMPHOCYTES # (AUTO) 21.7 10^3/uL (1.0-4.0); LYMPHOCYTES % (AUTO) 81 % (12-44); MEAN CORPUSCULAR HEMOGLOBIN 31 pg (25-34); MEAN CORPUSCULAR HGB CONC 32 g/dL (32-36); MEAN CORPUSCULAR VOLUME 99 fL (80-99); MONOCYTES # (AUTO) 0.4 10^3/uL (0.0-1.0); MONOCYTES % (AUTO) 2 % (0-12); NEUTROPHILS # (AUTO) 4.4 10^3/uL (1.8-7.8); NEUTROPHILS % (AUTO) 16 % (42-75); PLATELET COUNT 180 10^3/uL (130-400); WHITE BLOOD COUNT 26.8 10^3/uL (4.3-11.0)
[2022-10-17 15:12] LABS: ALBUMIN 3.9 GM/DL (3.2-4.5); BILIRUBIN,TOTAL 0.7 MG/DL (0.1-1.0); CALCIUM 9.3 MG/DL (8.5-10.1); CREATININE SERUM 1.25 MG/DL (0.60-1.30); POTASSIUM 4.4 MMOL/L (3.6-5.0); TOTAL PROTEIN 7.3 GM/DL (6.4-8.2)
== END 2022-11-08 | disposition home or self-care (01) ==
LOC: ONC 14:35
PROVIDERS: ATTEND Internal Medicine Hematology & Oncology
DX: C91.10 Chronic lymphocytic leukemia of B-cell type not having achieved remission (principal); D64.9 Anemia, unspecified; R91.1 Solitary pulmonary nodule
CPT/HCPCS: 80053; 85025; G0463; 36415; 99213

== ENCOUNTER 2023-01-09 13:09 | Outpatient (RCR) | payer MEDICARE, OTHER ==
[2023-01-09 13:29] LABS: BASOPHILS # (AUTO) 0.1 10^3/uL (0.0-0.1); BASOPHILS % (AUTO) 0 % (0-10); EOSINOPHILS # (AUTO) 0.3 10^3/uL (0.0-0.3); EOSINOPHILS % (AUTO) 1 % (0-10); HEMATOCRIT 39 % (35-52); HEMOGLOBIN 12.8 g/dL (11.5-16.0); LYMPHOCYTES % (AUTO) 86 % (12-44); MEAN CORPUSCULAR HEMOGLOBIN 32 pg (25-34); MEAN CORPUSCULAR HGB CONC 33 g/dL (32-36); MEAN CORPUSCULAR VOLUME 98 fL (80-99); MEAN PLATELET VOLUME 10.4 fL (9.0-12.2); MONOCYTES # (AUTO) 0.4 10^3/uL (0.0-1.0); MONOCYTES % (AUTO) 2 % (0-12); NEUTROPHILS # (AUTO) 2.8 10^3/uL (1.8-7.8); NEUTROPHILS % (AUTO) 11 % (42-75); PLATELET COUNT 131 10^3/uL (130-400); WHITE BLOOD COUNT 25.6 10^3/uL (4.3-11.0)
[2023-01-09 13:46] LABS: BILIRUBIN,TOTAL 0.8 MG/DL (0.1-1.0); CALCIUM 9.5 MG/DL (8.5-10.1); CREATININE SERUM 1.23 MG/DL (0.60-1.30); POTASSIUM 4.5 MMOL/L (3.6-5.0); TOTAL PROTEIN 7.1 GM/DL (6.4-8.2)
== END 2023-02-05 | disposition home or self-care (01) ==
LOC: ONC 13:09
PROVIDERS: ATTEND Internal Medicine Hematology & Oncology
DX: C91.10 Chronic lymphocytic leukemia of B-cell type not having achieved remission (principal); D64.9 Anemia, unspecified; R91.1 Solitary pulmonary nodule
CPT/HCPCS: 36415; 80053; 85025

== ENCOUNTER → 2023-03-02 | Outpatient (CLI) | payer MEDICARE, OTHER ==
--- NOTE | 2023-03-02 16:35 | Diagnostic Imaging Report ---
PROCEDURE: US carotid duplex bilateral. TECHNIQUE: Multiple Real-time grayscale images were obtained over the carotid arteries in various projections, bilaterally. Additional spectral analysis and color Doppler duplex images were also obtained. INDICATION: Left carotid bruit. FINDINGS: There is mild plaque in the carotid bulbs bilaterally; however, the velocities are normal bilaterally. No velocity elevation or stenosis is detected. Both vertebral arteries show antegrade flow. IMPRESSION: No evidence of a hemodynamically significant stenosis. Parameters based on the consensus panel Pollock-Scale and Doppler ultrasound criteria published August 2003, Radiology, Volume 229. DOPPLER (peak systolic velocity M/S Right Left CCA .80 1.0 ICA Proximal .71 .61 ICA Mid .50 .75 ICA Distal .77 .67 RATIO .69 .80 ECA 1.9 .82 VERT 21 86 Dictated by: Dictated on workstation # [id number]
== END ==
LOC: CARD 11:02
DX: I08.3 Combined rheumatic disorders of mitral, aortic and tricuspid valves (principal); I11.9 Hypertensive heart disease without heart failure; E66.01 Morbid (severe) obesity due to excess calories; R09.89 Other specified symptoms and signs involving the circulatory and respiratory systems; Z68.37 Body mass index [BMI] 37.0-37.9, adult
CPT/HCPCS: 93880; C8929; 93306

== ENCOUNTER 2023-04-17 13:03 | Outpatient (RCR) | payer MEDICARE, OTHER ==
[2023-04-17 13:22] LABS: BASOPHILS # (AUTO) 0.1 10^3/uL (0.0-0.1); BASOPHILS % (AUTO) 0 % (0-10); EOSINOPHILS # (AUTO) 0.3 10^3/uL (0.0-0.3); EOSINOPHILS % (AUTO) 1 % (0-10); HEMATOCRIT 41 % (35-52); LYMPHOCYTES # (AUTO) 19.3 10^3/uL (1.0-4.0); LYMPHOCYTES % (AUTO) 84 % (12-44); MEAN CORPUSCULAR HEMOGLOBIN 32 pg (25-34); MEAN CORPUSCULAR HGB CONC 32 g/dL (32-36); MEAN CORPUSCULAR VOLUME 100 fL (80-99); MEAN PLATELET VOLUME 10.8 fL (9.0-12.2); MONOCYTES # (AUTO) 0.3 10^3/uL (0.0-1.0); MONOCYTES % (AUTO) 1 % (0-12); NEUTROPHILS % (AUTO) 13 % (42-75); PLATELET COUNT 127 10^3/uL (130-400)
[2023-04-17 13:45] LABS: ALBUMIN 3.9 GM/DL (3.2-4.5); BILIRUBIN,TOTAL 0.8 MG/DL (0.1-1.0); CALCIUM 9.9 MG/DL (8.5-10.1); CREATININE SERUM 1.34 MG/DL (0.60-1.30); POTASSIUM 4.9 MMOL/L (3.6-5.0)
== END 2023-05-08 | disposition home or self-care (01) ==
LOC: ONC 13:03
PROVIDERS: ATTEND Internal Medicine Hematology & Oncology
DX: C91.10 Chronic lymphocytic leukemia of B-cell type not having achieved remission (principal); D64.9 Anemia, unspecified; R91.1 Solitary pulmonary nodule
CPT/HCPCS: 36415; 80053; 85025

== ENCOUNTER 2023-04-17 21:21 | Emergency (ER) | payer MEDICARE, OTHER ==
[~2023-04-17] VITALS: Ht 154.9 cm; Wt 78.5 kg
[2023-04-17] MEDS ORDERED: NS IV 1000 ML 1,000 ML IV STA (21:30)
[2023-04-17] MEDS ORDERED: ONDANSETRON 4 MG/2 ML (SDV) Z0FRAN IVP STA (21:30)
[2023-04-17] MEDS ORDERED: PANTOPRAZOLE 40 MG (PROTONIX) VIAL IV STA (21:30)
[2023-04-17 21:38] LABS: BASOPHILS # (AUTO) 0.1 10^3/uL (0.0-0.1); BASOPHILS % (AUTO) 0 % (0-10); EOSINOPHILS # (AUTO) 0.4 10^3/uL (0.0-0.3); EOSINOPHILS % (AUTO) 1 % (0-10); HEMATOCRIT 41 % (35-52); LYMPHOCYTES # (AUTO) 23.2 10^3/uL (1.0-4.0); LYMPHOCYTES % (AUTO) 88 % (12-44); MEAN CORPUSCULAR HEMOGLOBIN 32 pg (25-34); MEAN CORPUSCULAR HGB CONC 32 g/dL (32-36); MEAN CORPUSCULAR VOLUME 99 fL (80-99); MEAN PLATELET VOLUME 10.8 fL (9.0-12.2); MONOCYTES # (AUTO) 0.4 10^3/uL (0.0-1.0); MONOCYTES % (AUTO) 2 % (0-12); NEUTROPHILS # (AUTO) 2.3 10^3/uL (1.8-7.8); NEUTROPHILS % (AUTO) 9 % (42-75); PLATELET COUNT 130 10^3/uL (130-400); WHITE BLOOD COUNT 26.4 10^3/uL (4.3-11.0)
--- NOTE | 2023-04-17 21:55 | ED General ---
General Chief Complaint: Abdominal/GI Problems Stated Complaint: N/V/D Nursing Triage Note: Patient arrival per [facility] from residence for not feeling herself with hx Ischemic Stroke. Pt had approx 2 hours of feeling dizzy while sitting in chair and then vomited 20 min [employer]. Pt had labs done earlier today for her oncologist. Pt reports immediately she is feeling better. Source of Information: Patient, EMS History of Present Illness Date Seen by Provider: Apr 17, 2023 Time Seen by Provider: 21:21 Initial Comments 73-year-old female presenting with complaints of feeling dizzy since around 5 PM. She had vomited just prior to EMS picking her up. She did have labs earlier today ordered by her oncologist for her chronic lymphocytic leukemia and they appeared stable with her baseline. She denies having fever, chills, change in vision, chest pain, abdominal pain, pain with urination, headache. She is feeling better after EMS had given her Zofran 4 mg IV in route. She was getting some IV fluids from EMS as well. Timing/Duration: 1-3 Hours Severity: Mild Associated Systoms: No Chest Pain, No Cough, No Diaphoresis, No Fever/Chills, No Headaches, No Loss of Appetite, No Malaise; Nausea/Vomiting; No Seizure, No Shortness of Air, No Syncope, No Weakness Allergies and Home Medications Allergies Coded Allergies: prednisone (Verified Allergy, Intermediate, 01/08/19) PO MAKES HER HAVE NAUSEA, IM IS FINE lisinopril (Verified Adverse Reaction, Mild, 01/08/19) COUGH Patient Home Medication List Home Medication List Reviewed: Yes Allopurinol (Allopurinol) 300 Mg Tablet, 300 MG PO DAILY, (Reported) Entered as Reported by: MAXIMILIANO ALEJO on 02/17/22 1452 Alprazolam (Alprazolam) 1 Mg Tablet, 1 MG PO HS, (Reported) Entered as Reported by: MAXIMILIANO ALEJO on 02/17/22 1452 Aspirin (Adult Low Dose Aspirin EC) 81 Mg Tablet.dr, 81 MG PO DAILY, (Reported) Entered as Reported by: NAT HUNT on 06/14/22 1012 Carvedilol (Carvedilol) 6.25 Mg Tablet, 6.25 MG PO BID WITH MEALS Prescribed by: ANDREA MARTINEZ on 02/19/22 0531 Cholecalciferol (Vitamin D3) (Vitamin D3) 50 Mcg (2000 Unit) Capsule, 50 MCG PO BID, (Reported) Entered as Reported by: MAXIMILIANO ALEJO on 02/17/221451 Ezetimibe (Ezetimibe) 10 Mg Tablet, 10 MG PO DAILY, (Reported) Entered as Reported by: MAXIMILIANO ALEJO on 02/17/221451 Fish Oil/Dha/Epa (Fish Oil 1,200 mg Fish Oil) 1,200 Mg-144 Mg-216 Mg Capsule, 1 EACH PO BID, (Reported) Entered as Reported by: MAXIMILIANO ALEJO on 02/17/221451 Gabapentin (Gabapentin) 100 Mg Capsule, 200 MG PO DAILY, (Reported) Entered as Reported by: MAXIMILIANO ALEJO on 02/17/221451 Gabapentin (Gabapentin) 100 Mg Capsule, 100 MG PO HS, (Reported) Entered as Reported by: NAT HUNT on 06/14/22 0953 Glimepiride (Glimepiride) 4 Mg Tablet, 4 MG PO DAILY, (Reported) Entered as Reported by: NAT HUNT on 06/14/22 0957 Insulin Glargine,Hum.rec.anlog (Lantus Solostar) 100 Unit/Ml (3 Ml) Insuln.pen, 12 UNITS SC DAILY, (Reported) Entered as Reported by: MAXIMILIANO ALEJO on 02/17/221451 Levothyroxine Sodium (Levothyroxine Sodium) 88 Mcg Tablet, 88 MCG PO DAILY, (Reported) Entered as Reported by: MAXIMILIANO ALEJO on 02/17/221451 Magnesium Oxide (Magnesium) 400 Mg Magnesium Tablet, 400 MG PO DAILY, (Reported) Entered as Reported by: MAXIMILIANO ALEJO on 02/17/221451 Meloxicam (Meloxicam) 15 Mg Tablet, 15 MG PO DAILY, (Reported) Entered as Reported by: MAXIMILIANO ALEJO on 02/17/221451 Methocarbamol (Methocarbamol) 500 Mg Tablet, 500 MG PO Q6-8HR PRN for MUSCLE SPASMS, (Reported) Entered as Reported by: NAT HUNT on 06/14/22 1002 Multivitamin (Multivitamin) 1 Each Tablet, 1 EACH PO DAILY, (Reported) Entered as Reported by: MAXIMILIANO ALEJO on 02/17/221451 Omeprazole (Omeprazole) 40 Mg Capsule.dr, 40 MG PO DAILY, (Reported) Entered as Reported by: MAXIMILIANO ALEJO on 02/17/221451 Rosuvastatin Calcium (Rosuvastatin Calcium) 40 Mg Tablet, 40 MG PO DAILY, (Reported) Entered as Reported by: MAXIMILIANO ALEJO on 02/17/221451 Sertraline HCl (Sertraline HCl) 100 Mg Tablet, 100 MG PO DAILY, (Reported) Entered as Reported by: MAXIMILIANO ALEJO on 02/17/221451 Spironolactone (Spironolactone) 25 Mg Tablet, 25 MG PO DAILY, (Reported) Entered as Reported by: NAT HUNT on 06/14/22 09 Tramadol HCl (Tramadol HCl) 50 Mg Tablet, 50 MG PO Q4H PRN for PAIN-MILD (1-4) OR TEMPATURE, (Reported) Entered as Reported by: NAT HUNT on 06/14/22956 Discontinued Medications Alprazolam (Alprazolam) 1 Mg Tablet, 1 MG PO DAILY PRN for ANXIETY, (Reported) Discontinued Reason: Referral/FU Appt-Addtl Entered as Reported by: MAXIMILIANO ALEJO on 02/17/221451 Last Action: Discontinued Cefdinir (Cefdinir) 300 Mg Capsule, 300 MG PO BID Discontinued Reason: Referral/FU Appt-Addtl Prescribed by: HARVINDER CASTANON on 04/13/22 1231 Last Action: Discontinued Review of Systems Review of Systems Constitutional: No chills, No fever EENTM: no symptoms reported Respiratory: no symptoms reported Cardiovascular: no symptoms reported Gastrointestinal: nausea, vomiting Genitourinary: No dysuria Musculoskeletal: no symptoms reported Skin: no symptoms reported Psychiatric/Neurological: Anxiety Past Ozgcqkq-Thnxpe-Rrlomc Hx Patient Social History Tobacco Use?: No Immunizations Up To Date First/Initial COVID19 Vaccinat: Moderna Second COVID19 Vaccination Isra: Moderna Third COVID19 Vaccination Date: Seasonal Allergies Seasonal Allergies: No Past Medical History Surgery/Hospitalization HX: Chronic lymphocytic leukemia Surgeries: Yes (CABG, LT HIP FX) CABG, Gallbladder, Joint Replacement, Orthopedic Respiratory: Yes Asthma Cardiac: Yes Coronary Artery Disease, Heart Attack Neurological: Yes Seizure Disorder, Stroke Genitourinary: No Gastrointestinal: No Musculoskeletal: No Endocrine: Yes Diabetes, Insulin dep HEENT: No Cancer: Yes Leukemia Psychosocial: Yes Anxiety Integumentary: No Psoriasis Blood Disorders: No Family Medical History No Pertinent Family Hx Physical Exam Vital Signs Vital Signs - First Documented 04/17/23 04/17/23 21:23 22:25 Temp 35.4 Pulse 50 Resp 16 B/P (MAP) 179/52 (94) Pulse Ox 92 O2 Delivery Room Air O2 Flow Rate 3.00 Capillary Refill : Less Than 3 Seconds Height, Weight, BMI Height: 5'2.00" Weight: 202lbs. oz. 91.922734zo; 32.00 BMI Method:Stated General Appearance: No Apparent Distress, WD/WN HEENT: PERRL/EOMI, TMs Normal, Normal ENT Inspection, Pharynx Normal, Moist Mucous Membranes Neck: Full Range of Motion, Normal Inspection, Non Tender, Supple Respiratory: Chest Non Tender, Lungs Clear, Normal Breath Sounds Cardiovascular: Regular Rate, Rhythm, Normal Peripheral Pulses Gastrointestinal: Normal Bowel Sounds, No Pulsatile Mass, Non Tender, Soft Rectal: Deferred Extremity: Normal Capillary Refill, Normal Inspection, No Pedal Edema Neurologic/Psychiatric: Alert, Oriented x3 Skin: Warm/Dry Progress/Results/Core Measures Suspected Sepsis SIRS Temperature: Pulse: 50 Respiratory Rate: 16 Laboratory Tests 04/17/23 21:30: White Blood Count 26.4H Blood Pressure 179 /52 Mean: 94 Laboratory Tests 04/17/23 21:30: Creatinine 1.14, Platelet Count 130, Total Bilirubin 0.7 Results/Orders Lab Results Laboratory Tests Test 04/17/23 21:30 04/17/23 21:50 Range/Units White Blood Count 26.4 H 4.3-11.0 10^3/uL Red Blood Count 4.13 3.80-5.11 10^6/uL Hemoglobin 13.0 11.5-16.0 g/dL Hematocrit 41 35-52 % Mean Corpuscular Volume 99 80-99 fL Mean Corpuscular Hemoglobin 32 25-34 pg Mean Corpuscular Hemoglobin Concent 32 32-36 g/dL Red Cell Distribution Width 14.3 10.0-14.5 % Platelet Count 130 130-400 10^3/uL Mean Platelet Volume 10.8 9.0-12.2 fL Immature Granulocyte % (Auto) 0 % Neutrophils (%) (Auto) 9 L 42-75 % Lymphocytes (%) (Auto) 88 H 12-44 % Monocytes (%) (Auto) 2 0-12 % Eosinophils (%) (Auto) 1 0-10 % Basophils (%) (Auto) 0 0-10 % Neutrophils # (Auto) 2.3 1.8-7.8 10^3/uL Lymphocytes # (Auto) 23.2 H 1.0-4.0 10^3/uL Monocytes # (Auto) 0.4 0.0-1.0 10^3/uL Eosinophils # (Auto) 0.4 H 0.0-0.3 10^3/uL Basophils # (Auto) 0.1 0.0-0.1 10^3/uL Immature Granulocyte # (Auto) 0.0 0.0-0.1 10^3/uL Neutrophils % (Manual) 8 % Lymphocytes % (Manual) 88 % Monocytes % (Manual) 1 % Eosinophils % (Manual) 2 % Basophils % (Manual) 0 % Band Neutrophils 1 % Platelet Estimate SL DECREASE Percent Immature Platelet Fraction 4.5 0.0-7.6 % Elliptocytes SLIGHT Sodium Level 137 135-145 MMOL/L Potassium Level 5.9 H 3.6-5.0 MMOL/L Chloride Level 101 98-107 MMOL/L Carbon Dioxide Level 26 21-32 MMOL/L Anion Gap 10 5-14 MMOL/L Blood Urea Nitrogen 21 H 7-18 MG/DL Creatinine 1.14 0.60-1.30 MG/DL Estimat Glomerular Filtration Rate 51 BUN/Creatinine Ratio 18 Glucose Level 198 H 70-105 MG/DL Calcium Level 9.9 8.5-10.1 MG/DL Corrected Calcium 10.0 8.5-10.1 MG/DL Total Bilirubin 0.7 0.1-1.0 MG/DL Aspartate Amino Transf (AST/SGOT) 43 H 5-34 U/L Alanine Aminotransferase (ALT/SGPT) 15 0-55 U/L Alkaline Phosphatase 56 40-136 U/L Total Protein 7.2 6.4-8.2 GM/DL Albumin 3.9 3.2-4.5 GM/DL Lipase 30 8-78 U/L Urine Color YELLOW Urine Clarity CLEAR Urine pH 7.0 5-9 Urine Specific [place] 1.010 L 1.016-1.022 Urine Protein NEGATIVE NEGATIVE Urine Glucose (UA) 3+ H NEGATIVE Urine Ketones NEGATIVE NEGATIVE Urine Nitrite NEGATIVE NEGATIVE Urine Bilirubin NEGATIVE NEGATIVE Urine Urobilinogen 0.2 < = 1.0 MG/DL Urine Leukocyte Esterase NEGATIVE NEGATIVE Urine RBC (Auto) NEGATIVE NEGATIVE Urine RBC RARE /HPF Urine WBC NONE /HPF Urine Squamous Epithelial Cells RARE /HPF Urine Crystals NONE /LPF Urine Bacteria NEGATIVE /HPF Urine Casts NONE /LPF Urine Mucus NEGATIVE /LPF Urine Culture Indicated NO My Orders Orders - RAPHAEL ACEVEDO MD Comprehensive Metabolic Panel (04/17/23 21:29) Lipase (04/17/23 21:29) Ua Culture If Indicated (04/17/23:29) Ed Iv/Invasive Line Start (04/17/23:29) Cbc With Automated Diff (04/17/23:) Ct Head Wo (04/17/23:) Ns Iv 1000 Ml (Sodium Chloride 0.9%) (04/17/23 21:30) Ondansetron Injection (Zofran Injectio (04/17/23 21:30) Pantoprazole Injection (Protonix Injecti (04/17/23 21:30) Straight Cath For Spec.-Adult (04/17/23 21:30) Manual Differential (04/17/23 21:30) Rx-Ondansetron Po (Rx-Zofran Po) (04/17/23 22:18) Vital Signs/I&O 04/17/23 04/17/23 21:23 22:25 Temp 35.4 35.6 Pulse 50 55 Resp 16 16 B/P (MAP) 179/52 (94) 169/52 Pulse Ox 92 99 O2 Delivery Room Air Nasal Cannula O2 Flow Rate 3.00 Capillary Refill : Less Than 3 Seconds Blood Pressure Mean: 94 Progress Note #1: Progress Note Potential diagnosis of anxiety, stress, electrolyte imbalance, UTI, gastroent eritis, viral syndrome. Obtain labs from the peripheral IV that EMS had started. Send blood work for complete blood count, comprehensive metabolic profile, lipase. Obtain urinalysis to look for signs of infection and check her hydration. CT scan of the head without IV contrast looking for signs of acute process to cause her to be dizzy. Patient reports that her symptoms were all improved on arrival to the ED after getting some Zofran and fluids by EMS. Ordered normal saline 1 L IV fluid bolus and Zofran 4 mg IV as well as Protonix 40 mg IV for possible gastritis. Progress Note #2: Time: 21:58 Progress Note I reviewed the radiologist report on the CT scan of the head without IV contrast. They did not appreciate any acute process to indicate a reason for her dizziness. She has chronic microvascular changes and atrophy. Complete b lood count was stable for her with her chronic lymphocytic leukemia. Earlier today her white count was 23 and now it is 26.4. Hemoglobin stable at 13 with hematocrit of 41. Platelets stable at 130. She had 84% lymphocytes earlier today and now they are 88%. Awaiting urinalysis and comprehensive metabolic panel Progress Note #3: Time: 22:13 Progress Note Urinalysis had a specific gravity of 1.010 and 3+ glucose but no leukocyte Estrace, nitrates, white blood cells to indicate a UTI. Her comprehensive metabolic profile had hemolysis but overall appeared similar to testing from this afternoon. She does have improvement in her creatinine from this afternoon when she was 1.34 and now it is 1.14. Lipase normal at 30. Glucose 198 similar to 224 that she had from 1 pm today. Patient has had no further emesis here in ED. Will reassure patient and family and encourage fluids and hydration at home as well as send with Zofran ODT take home pack so she could take 4 mg ODT every 6 hours as needed for n/v. Check back with her primary care providers for continued concerns. Diagnostic Imaging Diagonstic Imaging: CT Plain Films/CT/US/NM/MRI: head Comments NAME: [facility] REC#: [id number] PT STATUS: REG ER : 1950 PHYSICIAN: RAPHAEL ACEVEDO MD ADMIT DATE: 04/17/23/ER FS Draft Date of Exam:04/17/23 CT HEAD WO INDICATION: Dizziness and nausea and vomiting TECHNIQUE: Multiple contiguous axial images were obtained through the brain without the use of intravenous contrast. Auto Exposure Controls were utilized during the CT exam to meet ALARA standards for radiation dose reduction. Comparison made to 07/24/21. There are mild diffuse atrophic changes. There are mild low-density changes in the deep white matter compatible with chronic ischemic changes. There is no acute hemorrhage or subdural or epidural collection. The ventricles are normal in size and position. There is no acute territorial ischemia. Calvarial windows are unremarkable. IMPRESSION: Atrophic changes and chronic ischemic changes in deep white matter. No acute hemorrhage or subdural or epidural collection. There are extensive vascular calcifications in the vertebral arteries and carotid siphons. Dictated on workstation # [id number] Dict: 04/17/232150 Trans: 04/17/232153 [facility] [id number] Interpreted by: ALEXA PAK MD Electronically signed by: Reviewed: Reviewed by Me ([id number] I reviewed radiologist report and they did not see any acute process) Departure Impression Primary Impression: Nausea and vomiting Qualified Codes: R11.14 - Bilious vomiting Additional Impression: Dizzy Disposition: 01 HOME, SELF-CARE Condition: Improved Departure-Patient Inst. Decision time for Depature: 22:16 Referrals: DIANE CROWELL APRN (PCP) Primary Care Physician [facility] (Family) Primary Care Physician Patient Instructions: Nausea and Vomiting, Adult ED, Dizziness, Adult ED Add. Discharge Instructions: Continue to sip on fluids to stay well-hydrated. Continue taking your chronic medications at home. Use the dissolving nausea tablets, Zofran or Ondansetron, to help with your nausea so you can stay hydrated. Take 4 mg or 1 pill every 6 hours as needed for nausea and vomiting. Follow-up with your primary care provider about continued concerns. All discharge instructions reviewed with patient and/or family. Voiced understanding. RAPHAEL ACEVEDO MD Apr 17, 2023 21:55
[2023-04-17 22:01] LABS: BILIRUBIN,URINE NEGATIVE (NEGATIVE); CLARITY,URINE CLEAR; COLOR,URINE YELLOW; GLUCOSE, URINE (UA) 3+ (NEGATIVE); KETONES,URINE NEGATIVE (NEGATIVE); LEUKOCYTE ESTERASE ,URINE NEGATIVE (NEGATIVE); NITRITE,URINE NEGATIVE (NEGATIVE); PROTEIN,URINE NEGATIVE (NEGATIVE)
[2023-04-17 22:04] LABS: BAND NEUTROPHILS 1 %; BASOPHILS % (MANUAL) 0 %; EOSINOPHILS % (MANUAL) 2 %; LYMPHOCYTES % (MANUAL) 88 %; MONOCYTES % (MANUAL) 1 %; NEUTROPHILS % (MANUAL) 8 %; PLATELET ESTIMATE SL DECREASE
[2023-04-17 22:05] LABS: ELLIPT/OVALOCYTES SLIGHT
[2023-04-17 22:06] LABS: ALBUMIN 3.9 GM/DL (3.2-4.5); BILIRUBIN,TOTAL 0.7 MG/DL (0.1-1.0); CALCIUM 9.9 MG/DL (8.5-10.1); CREATININE SERUM 1.14 MG/DL (0.60-1.30); POTASSIUM 5.9 MMOL/L (3.6-5.0); TOTAL PROTEIN 7.2 GM/DL (6.4-8.2)
[2023-04-17 22:11] LABS: BACTERIA,URINE NEGATIVE /HPF; RBC,URINE RARE /HPF; SQUAMOUS EPITHELIAL CELL,UR RARE /HPF
[2023-04-17] MEDS ORDERED: RX-ONDANSETRON 4 MG ODT (ZOFRAN) PPK #4 PO STA (22:18)
[2023-04-17 22:25] VITALS: BP 169/52
== END 2023-04-17 22:25 | disposition home or self-care (01) ==
LOC: EDUNIT# 21:21 → ER FS 21:22
DX: R11.2 Nausea with vomiting, unspecified (principal); R42 Dizziness and giddiness; I99.8 Other disorder of circulatory system
CPT/HCPCS: 36415; 51701; 70450; 80053; 81000; 83690; 85007; 85027

== ENCOUNTER 2023-07-12 12:55 | Outpatient (RCR) | payer MEDICARE, OTHER ==
[2023-07-12 14:01] LABS: BASOPHILS # (AUTO) 0.1 10^3/uL (0.0-0.1); BASOPHILS % (AUTO) 0 % (0-10); EOSINOPHILS # (AUTO) 0.3 10^3/uL (0.0-0.3); EOSINOPHILS % (AUTO) 1 % (0-10); HEMATOCRIT 41 % (35-52); HEMOGLOBIN 13.1 g/dL (11.5-16.0); LYMPHOCYTES # (AUTO) 26.3 10^3/uL (1.0-4.0); LYMPHOCYTES % (AUTO) 88 % (12-44); MEAN CORPUSCULAR HEMOGLOBIN 31 pg (25-34); MEAN CORPUSCULAR HGB CONC 32 g/dL (32-36); MEAN CORPUSCULAR VOLUME 99 fL (80-99); MEAN PLATELET VOLUME 10.3 fL (9.0-12.2); MONOCYTES # (AUTO) 0.4 10^3/uL (0.0-1.0); MONOCYTES % (AUTO) 1 % (0-12); NEUTROPHILS # (AUTO) 2.7 10^3/uL (1.8-7.8); NEUTROPHILS % (AUTO) 9 % (42-75); PLATELET COUNT 144 10^3/uL (130-400); WHITE BLOOD COUNT 29.9 10^3/uL (4.3-11.0)
[2023-07-12 14:18] LABS: ALBUMIN 4.1 GM/DL (3.2-4.5); BILIRUBIN,TOTAL 0.9 MG/DL (0.1-1.0); CALCIUM 9.8 MG/DL (8.5-10.1); CREATININE SERUM 1.52 MG/DL (0.60-1.30); POTASSIUM 4.9 MMOL/L (3.6-5.0); TOTAL PROTEIN 7.8 GM/DL (6.4-8.2)
== END 2023-08-08 | disposition home or self-care (01) ==
LOC: ONC 12:55
PROVIDERS: ATTEND Internal Medicine Hematology & Oncology
DX: C91.10 Chronic lymphocytic leukemia of B-cell type not having achieved remission (principal); R91.1 Solitary pulmonary nodule
CPT/HCPCS: 80053; 82728; 83540; 83550; 85025; G0463; 36415; 99214

== ENCOUNTER → 2023-07-12 | Outpatient (CLI) | payer MEDICARE, OTHER ==
--- NOTE | 2023-07-12 14:59 | Diagnostic Imaging Report ---
EXAMINATION: Chest, 2 views. HISTORY: Pain. COMPARISON: 06/04/2022. FINDINGS: The lungs are clear without edema or pneumonia. No pleural effusion or pneumothorax. Heart size is normal. Median sternotomy wires are aligned. IMPRESSION: Clear lungs. Dictated by: Dictated on workstation # [id number]
== END ==
LOC: RAD 14:44
PROVIDERS: ATTEND Internal Medicine Hematology & Oncology
DX: R07.9 Chest pain, unspecified (principal); Y92.009 Unspecified place in unspecified non-institutional (private) residence as the place of occurrence of the external cause
CPT/HCPCS: 71046